=== PATIENT | female | born 1935 | race Caucasian/White ===

== ENCOUNTER 2023-02-03 20:04 | Observation (INO) | payer OTHER ==
--- OUTSIDE RECORDS SUMMARY | 2023-02-03 20:11 | XMS REPORT | Continuity of Care Document ---
:1935 Author Organization [facility] t Address [address] [facility] [place] [address] Care Team Providers Name Role Phone Rey Arango MD Primary Care Physician AURA MARK Attending Clinician Unavailable Doctor Unassigned, Home Attending Clinician Unavailable Rey Arango MD Attending Clinician REY ARANGO Attending Clinician Unavailable LEEROY ALBARRAN Attending Clinician Unavailable JEANETTE CHOW Attending Clinician Unavailable Lab, Ang - Db Attending Clinician Unavailable Jamie Roger MD Attending Clinician JAMIE ROGER Attending Clinician Unavailable Jeanette Londono Attending Clinician oDra Amor Attending Clinician PERLA VILLARREAL Attending Clinician Unavailable PERLA VILLARREAL Attending Clinician Unavailable Aura Mark MD Attending Clinician Only, Adc Test Attending Clinician Unavailable Damien Quintanilla DO Attending Clinician Meseret Oden RN Attending Clinician Unavailable Aidee Nunez Attending Clinician Jose Everett MD Attending Clinician Heaven Corcoran RN Attending Clinician Unavailable Lab, Adc Fam Pob I Attending Clinician Unavailable Evelyn Mckeon Attending Clinician EVELYN GILLESPIE Attending Clinician Unavailable Pob, Adc Lab Main Attending Clinician Unavailable ROSIO WILLIAMSON Attending Clinician Unavailable Rosio Williamson MD Attending Clinician AURA MARK Admitting Clinician Unavailable Aura Mark MD Admitting Clinician Jose Everett MD Admitting Clinician Payers Payer Name Policy Type Policy Number Effective Date Expiration Date [employer] CHOICE [id number] 2014 00:00:00 Problems Condition Condition Condition Status Onset Resolution Last Treating Co mments Source Name Details Category Date Date Treatment Clinician Date Colitis, Colitis, Disease Active Unive rs acute acute - ity of 00:00: [place] [address] [place] [address] Branch Essential Essential Disease Active Uni vers hypertensi hypertensi 5-16 it y of on on 00:00: [address] Type 2 Type 2 Disease Active Univers diabetes diabetes 5-16 ity of mellitus mellitus 00:00: [place] without without 00 Medical complicati complicati Br anch on, with on, with long-term long-term current current use of use of insulin insulin UTI UTI Disease Active Univers (urinary (urinary 6-18 ity of tract tract 00:00: [place] infection) infection) 00 Me dical Branch Acute Acute Disease Active Univers bilateral bilateral 6-18 ity of low back low back 00:00: [place] pain with pain with 00 [facility] sciatica sciatica Branch Allergies, Adverse Reactions, Alerts Allergy Allergy Status Severity Reaction(s) Onset Inactive Treating Comm ents Source Name Type Date Date Clinician NO KNOWN Drug Active Univers ALLERGIE Class ity of S [facility] Social History Social Habit Start Date Stop Date Quantity Comments Source Exposure to 2022-12-26 2023-01-05 Not sure University SARS-CoV-2 00:00:00 08:54:00 [facility] (event) Branch Alcohol intake 2023-01-05 2023-01-05 Current University of 00:00:00 00:00:00 non-drinker of [facility] alcohol (finding) [place] Tobacco use and 2022-09-22 2022-09-22 Smokeless tobacco Un iversity of exposure 00:00:00 00:00:00 non-user [facility] Sex Ass[birth year] At [birth year] Universit y of 00:00:00 00:00:00 [facility] Smoking Status Start Date Stop Date Source Never smoked tobacco [facility] Medications Ordered Filled Start Stop Current Ordering Indication Dosage Frequency Signature Comments Components Source Medication Medication Date Date Medication? Clinician (SIG) Name Name ondansetron 3-0 Yes [id number] 4mg Take 1 Univers 4 mg tablet 4-05 tablet by ity of 00:00: mouth [place] 00 every 4 Medical (four) Branch hours as needed for Nausea and Vomiting (N/V). ondansetron 3-0 Yes [id number] 4mg Take 1 Univers 4 mg tablet 4-05 tablet by ity of 00:00: mouth [place] 00 every 4 Medical (four) Branch hours as needed for Nausea and Vomiting (N/V). ondansetron 3-0 Yes [id number] 4mg Take 1 Univers 4 mg tablet 4-05 tablet by ity of 00:00: mouth [place] 00 every 4 Medical (four) Branch hours as needed for Nausea and Vomiting (N/V). ondansetron 3-0 Yes [id number] 4mg Take 1 Univers 4 mg tablet 4-05 tablet by ity of 00:00: mouth [place] 00 every 4 Medical (four) Branch hours as needed for Nausea and Vomiting (N/V). HYDROcodone 3-0 Yes 2745 TAKE 1 Univ ers -ibuprofen 3-17 TABLET BY ity of 7.5-200 mg 00:00: MOUTH [place] per tablet 00 EVERY SIX Medi varsha HOURS Branch NEEDED FOR PAIN Indication s: chronic pain HYDROcodone 3-0 Yes 2745 TAKE 1 Univ ers -ibuprofen 3-17 TABLET BY ity of 7.5-200 mg 00:00: MOUTH [place] per tablet 00 EVERY SIX Medi varsha HOURS Branch NEEDED FOR PAIN Indication s: chronic pain HYDROcodone 2023-0 Yes 2745 TAKE 1 Univ ers -ibuprofen 3-17 TABLET BY ity of 7.5-200 mg 00:00: MOUTH [place] per tablet 00 EVERY SIX Medi varsha HOURS Branch NEEDED FOR PAIN Indication s: chronic pain HYDROcodone 2023-0 Yes 2745 TAKE 1 Univ ers -ibuprofen 3-17 TABLET BY ity of 7.5-200 mg 00:00: MOUTH [place] per tablet 00 EVERY SIX Medi varsha HOURS Branch NEEDED FOR PAIN Indication s: chronic pain HYDROcodone 2022-0 Yes 2745 TAKE 1 Univ ers -ibuprofen 3-17 TABLET BY ity of 7.5-200 mg 00:00: MOUTH [place] per tablet 00 EVERY SIX Medi varsha HOURS Branch NEEDED FOR PAIN Indication s: chronic pain HYDROcodone 2022-0 Yes 2745 TAKE 1 Univ ers -ibuprofen 3-17 TABLET BY ity of 7.5-200 mg 00:00: MOUTH [place] per tablet 00 EVERY SIX Medi varsha HOURS Branch NEEDED FOR PAIN Indication s: chronic pain HYDROcodone 2022-0 Yes 2745 TAKE 1 Univ ers -ibuprofen 3-17 TABLET BY ity of 7.5-200 mg 00:00: MOUTH [place] per tablet 00 EVERY SIX Medi varsha HOURS Branch NEEDED FOR PAIN Indication s: chronic pain HYDROcodone 2022-0 Yes 2745 TAKE 1 Univ ers -ibuprofen 3-17 TABLET BY ity of 7.5-200 mg 00:00: MOUTH [place] per tablet 00 EVERY SIX Medi varsha HOURS Branch NEEDED FOR PAIN Indication s: chronic pain HYDROcodone 2022-0 Yes 2745 TAKE 1 Univ ers -ibuprofen 3-17 TABLET BY ity of 7.5-200 mg 00:00: MOUTH [place] per tablet 00 EVERY SIX Medi varsha HOURS Branch NEEDED FOR PAIN Indication s: chronic pain HYDROcodone 2022-0 Yes 2745 TAKE 1 Univ ers -ibuprofen 3-17 TABLET BY ity of 7.5-200 mg 00:00: MOUTH [place] per tablet 00 EVERY SIX Medi varsha HOURS Branch NEEDED FOR PAIN Indication s: chronic pain diclofenac 2022-0 Yes [id number] 50mg Take 1 Univers 50 mg EC 3-16 [id number] tablet by ity o f tablet 00:00: mouth in [place] 00 the Medical morning Branch and 1 tablet in the evening. Take with meals. ALPRAZolam 2022-0 Yes [id number] TAKE 1/2 Univers 0.25 mg 3-16 TABLET BY ity of tablet 00:00: MOUTH [place] 00 THREE Medical TIMES Branch DAILY NEEDED FOR ANXIETY HYDROcodone 2022-0 Yes 2745 TAKE 1 Univ ers -acetaminop 3-16 TABLET BY ity of hen 5-325 00:00: MOUTH [place] mg tablet 00 EVERY FOUR Medi varsha HOURS Branch NEEDED FOR PAIN Indication s: chronic pain diclofenac 2023-0 Yes [id number] 50mg Take 1 Univers 50 mg EC 3-16 [id number] tablet by ity o f tablet 00:00: mouth in [place] the Medical morning Branch and 1 tablet in the evening. Take with meals. ALPRAZolam 3-0 Yes [id number] TAKE 1/2 Univers 0.25 mg 3-16 TABLET BY ity of tablet 00:00: MOUTH [address] Medical TIMES [place] DAILY NEEDED FOR ANXIETY HYDROcodone 3-0 Yes 2745 TAKE 1 Univ ers -acetaminop 3-16 TABLET BY ity of hen 5-325 00:00: MOUTH [place] mg tablet 00 EVERY FOUR Medi varsha HOURS Branch NEEDED FOR PAIN Indication s: chronic pain diclofenac 3-0 Yes [id number] 50mg Take 1 Univers 50 mg EC 3-16 [id number] tablet by ity o f tablet 00:00: mouth in [place] [address] the Medical morning Branch and 1 tablet in the evening. Take with meals. ALPRAZolam 3-0 Yes [id number] TAKE 1/2 Univers 0.25 mg 3-16 TABLET BY ity of tablet 00:00: MOUTH [address] TIMES [place] DAILY NEEDED FOR ANXIETY HYDROcodone 3-0 Yes 2745 TAKE 1 Univ ers -acetaminop 3-16 TABLET BY ity of hen 5-325 00:00: MOUTH [place] mg tablet 00 EVERY FOUR Medi varsha HOURS Branch NEEDED FOR PAIN Indication s: chronic pain diclofenac 3-0 Yes [id number] 50mg Take 1 Univers 50 mg EC 3-16 [id number] tablet by ity o f tablet 00:00: mouth in [place] [address] the [facility] morning Branch and 1 tablet in the evening. Take with meals. ALPRAZolam 3-0 Yes [id number] TAKE 1/2 Univers 0.25 mg 3-16 TABLET BY ity of tablet 00:00: MOUTH [address] TIMES [place] DAILY NEEDED FOR ANXIETY HYDROcodone 3-0 Yes 2745 TAKE 1 Univ ers -acetaminop 3-16 TABLET BY ity of hen 5-325 00:00: MOUTH [place] mg tablet 00 EVERY FOUR Medi varsha HOURS Branch NEEDED FOR PAIN Indication s: chronic pain diclofenac 2023-0 Yes [id number] 50mg Take 1 Univers 50 mg EC 3-16 [id number] tablet by ity o f tablet 00:00: mouth in [place] [address] the Medical morning Branch and 1 tablet in the evening. Take with meals. ALPRAZolam 3-0 Yes [id number] TAKE 1/2 Univers 0.25 mg 3-16 TABLET BY ity of tablet 00:00: MOUTH [place] 00 THREE Medical TIMES Branch DAILY NEEDED FOR ANXIETY HYDROcodone 2022-0 Yes 2745 TAKE 1 Univ ers -acetaminop 3-16 TABLET BY ity of hen 5-325 00:00: MOUTH [place] mg tablet 00 EVERY FOUR Medi varsha HOURS Branch NEEDED FOR PAIN Indication s: chronic pain diclofenac 2022-0 Yes [id number] 50mg Take 1 Univers 50 mg EC 3-16 [id number] tablet by ity o f tablet 00:00: mouth in [place] 00 the Medical morning Branch and 1 tablet in the evening. Take with meals. ALPRAZolam 2022-0 Yes [id number] TAKE 1/2 Univers 0.25 mg 3-16 TABLET BY ity of tablet 00:00: MOUTH [place] [facility] Medical TIMES [place] DAILY NEEDED FOR ANXIETY HYDROcodone 2022-0 Yes 2745 TAKE 1 Univ ers -acetaminop 3-16 TABLET BY ity of hen 5-325 00:00: MOUTH [place] mg tablet 00 EVERY FOUR Medi varsha HOURS Branch NEEDED FOR PAIN Indication s: chronic pain diclofenac 2022-0 Yes [id number] 50mg Take 1 Univers 50 mg EC 3-16 [id number] tablet by ity o f tablet 00:00: mouth in [place] 00 the Medical morning Branch and 1 tablet in the evening. Take with meals. ALPRAZolam 3-0 Yes [id number] TAKE 1/2 Univers 0.25 mg 3-16 TABLET BY ity of tablet 00:00: MOUTH [place] 00 [facility] Medical TIMES [place] DAILY NEEDED FOR ANXIETY HYDROcodone 3-0 Yes 2745 TAKE 1 Univ ers -acetaminop 3-16 TABLET BY ity of hen 5-325 00:00: MOUTH [place] mg tablet 00 EVERY FOUR Medi varsha HOURS Branch NEEDED FOR PAIN Indication s: chronic pain diclofenac 3-0 Yes [id number] 50mg Take 1 Univers 50 mg EC 3-16 [id number] tablet by ity o f tablet 00:00: mouth in [place] 00 the Medical morning Branch and 1 tablet in the evening. Take with meals. ALPRAZolam 3-0 Yes [id number] TAKE 1/2 Univers 0.25 mg 3-16 TABLET BY ity of tablet 00:00: MOUTH [place] THREE Medical TIMES Branch DAILY NEEDED FOR ANXIETY HYDROcodone 2023-0 Yes 2745 TAKE 1 Univ ers -acetaminop 3-16 TABLET BY ity of hen 5-325 00:00: MOUTH [place] mg tablet 00 EVERY FOUR Medi varsha HOURS Branch NEEDED FOR PAIN Indication s: chronic pain diclofenac 2023-0 Yes [id number] 50mg Take 1 Univers 50 mg EC 3-16 [id number] tablet by ity o f tablet 00:00: mouth in [place] 00 the Medical morning Branch and 1 tablet in the evening. Take with meals. ALPRAZolam 2023-0 Yes [id number] TAKE 1/2 Univers 0.25 mg 3-16 TABLET BY ity of tablet 00:00: MOUTH [place] THREE Medical TIMES Branch DAILY NEEDED FOR ANXIETY HYDROcodone 2023-0 Yes 2745 TAKE 1 Univ ers -acetaminop 3-16 TABLET BY ity of hen 5-325 00:00: MOUTH [place] mg tablet 00 EVERY FOUR Medi varsha HOURS Branch NEEDED FOR PAIN Indication s: chronic pain diclofenac 3-0 Yes [id number] 50mg Take 1 Univers 50 mg EC 3-16 [id number] tablet by ity o f tablet 00:00: mouth in [place] the Medical morning Branch and 1 tablet in the evening. Take with meals. ALPRAZolam 2023-0 Yes [id number] TAKE 1/2 Univers 0.25 mg 3-16 TABLET BY ity of tablet 00:00: MOUTH [place] [facility] Medical TIMES [place] DAILY NEEDED FOR ANXIETY HYDROcodone 2023-0 Yes 2745 TAKE 1 Univ ers -acetaminop 3-16 TABLET BY ity of hen 5-325 00:00: MOUTH [place] mg tablet 00 EVERY FOUR Medi varsha HOURS Branch NEEDED FOR PAIN Indication s: chronic pain diclofenac 2023-0 Yes [id number] 50mg Take 1 Univers 50 mg EC 3-16 [id number] tablet by ity o f tablet 00:00: mouth in [place] 00 the Medical morning Branch and 1 tablet in the evening. Take with meals. ALPRAZolam 2023-0 Yes [id number] TAKE 1/2 Univers 0.25 mg 3-16 TABLET BY ity of tablet 00:00: MOUTH [place] 00 THREE Medical TIMES Branch DAILY NEEDED FOR ANXIETY HYDROcodone 2023-0 Yes 2745 TAKE 1 Univ ers -acetaminop 3-16 TABLET BY ity of hen 5-325 00:00: MOUTH [place] mg tablet 00 EVERY FOUR Medi varsha HOURS Branch NEEDED FOR PAIN Indication s: chronic pain diclofenac 2022-0 Yes [id number] 50mg Take 1 Univers 50 mg EC 3-16 [id number] tablet by ity o f tablet 00:00: mouth in [place] 00 the Medical morning Branch and 1 tablet in the evening. Take with meals. ALPRAZolam 2022-0 Yes [id number] TAKE 1/2 Univers 0.25 mg 3-16 TABLET BY ity of tablet 00:00: MOUTH [place] 00 THREE Medical TIMES Branch DAILY NEEDED FOR ANXIETY HYDROcodone 2022-0 Yes 2745 TAKE 1 Univ ers -acetaminop 3-16 TABLET BY ity of hen 5-325 00:00: MOUTH [place] mg tablet 00 EVERY FOUR Medi varsha HOURS Branch NEEDED FOR PAIN Indication s: chronic pain diclofenac 2022-0 Yes [id number] 50mg Take 1 Univers 50 mg EC 3-16 [id number] tablet by ity o f tablet 00:00: mouth in [place] 00 the Medical morning Branch and 1 tablet in the evening. Take with meals. ALPRAZolam 2022-0 Yes [id number] TAKE 1/2 Univers 0.25 mg 3-16 TABLET BY ity of tablet 00:00: MOUTH [place] 00 THREE Medical TIMES Branch DAILY NEEDED FOR ANXIETY HYDROcodone 2022-0 Yes 2745 TAKE 1 Univ ers -acetaminop 3-16 TABLET BY ity of hen 5-325 00:00: MOUTH [place] mg tablet 00 EVERY FOUR Medi varsha HOURS Branch NEEDED FOR PAIN Indication s: chronic pain methocarbam 2022-0 Yes [id number] 500mg Take 1 Univers oL 500 mg 2-23 109 tablet by ity o f tablet 00:00: mouth 3 [place] 00 (three) Medical times Branch daily as needed for Pain (scale 4-6). HYDROcodone 2022-0 Yes 2745 TAKE 1 Univ ers -ibuprofen 2-23 TABLET BY ity of 7.5-200 mg 00:00: MOUTH [place] per tablet 00 EVERY SIX Medi varsha HOURS Branch NEEDED FOR PAIN Indication s: chronic pain insulin 2022-0 Yes [id number] 28U inject 28 Univers detemir 2-23 Units ity of U-100 00:00: under the [place] ([place] 00 skin at Medical U-100 bedtime. Branch INSULIN) 100 unit/mL injection hydroCHLORO 2023-0 Yes [id number] 12.5mg Take 1 Univers thiazide 2-23 capsule by ity o f 12.5 mg 00:00: mouth in [place] capsule 00 the Medical morning. Branch methocarbam 2022-0 Yes [id number] 500mg Take 1 Univers oL 500 mg 2-23 109 tablet by ity o f tablet 00:00: mouth 3 [place] 00 (three) Medical times Branch daily as needed for Pain (scale 4-6). HYDROcodone 2022-0 Yes 2745 TAKE 1 Univ ers -ibuprofen 2-23 TABLET BY ity of 7.5-200 mg 00:00: MOUTH [place] per tablet 00 EVERY SIX Medi varsha HOURS Branch NEEDED FOR PAIN Indication s: chronic pain insulin 2022-0 Yes [id number] 28U inject 28 Univers detemir 2-23 Units ity of U-100 00:00: under the [place] ([place] 00 skin at Medical U-100 bedtime. Branch INSULIN) 100 unit/mL injection hydroCHLORO 2022-0 Yes [id number] 12.5mg Take 1 Univers thiazide 2-23 capsule by ity o f 12.5 mg 00:00: mouth in [place] capsule 00 the Medical morning. Branch methocarbam 2022-0 Yes [id number] 500mg Take 1 Univers oL 500 mg 2-23 109 tablet by ity o f tablet 00:00: mouth 3 [place] 00 (three) Medical times Branch daily as needed for Pain (scale 4-6). HYDROcodone 2022-0 Yes 2745 TAKE 1 Univ ers -ibuprofen 2-23 TABLET BY ity of 7.5-200 mg 00:00: MOUTH [place] per tablet 00 EVERY SIX Medi varsha HOURS Branch NEEDED FOR PAIN Indication s: chronic pain insulin 2022-0 Yes [id number] 28U inject 28 Univers detemir 2-23 Units ity of U-100 00:00: under the [place] ([place] 00 skin at Medical U-100 bedtime. Branch INSULIN) 100 unit/mL injection hydroCHLORO 2023-0 Yes [id number] 12.5mg Take 1 Univers thiazide 2-23 capsule by ity o f 12.5 mg 00:00: mouth in [place] capsule 00 the Medical morning. Branch methocarbam 2023-0 Yes [id number] 500mg Take 1 Univers oL 500 mg 2-23 109 tablet by ity o f tablet 00:00: mouth 3 [place] 00 (three) Medical times Branch daily as needed for Pain (scale 4-6). HYDROcodone 2022-0 Yes 2745 TAKE 1 Univ ers -ibuprofen 2-23 TABLET BY ity of 7.5-200 mg 00:00: MOUTH [place] per tablet 00 EVERY SIX Medi varsha HOURS Branch NEEDED FOR PAIN Indication s: chronic pain insulin 2022-0 Yes [id number] 28U inject 28 Univers [place]emir 2-23 Units ity of U-100 00:00: under the [place] ([place] 00 skin at Medical U-100 bedtime. Branch INSULIN) 100 unit/mL injection hydroCHLORO 2022-0 Yes [id number] 12.5mg Take 1 Univers thiazide 2-23 capsule by ity o f 12.5 mg 00:00: mouth in [place] capsule 00 the Medical morning. Branch methocarbam 2022-0 Yes [id number] 500mg Take 1 Univers oL 500 mg 2-23 109 tablet by ity o f tablet 00:00: mouth 3 (three) Medical times Branch daily as needed for Pain (scale 4-6). HYDROcodone 2022-0 Yes 2745 TAKE 1 Univ ers -ibuprofen 2-23 TABLET BY ity of 7.5-200 mg 00:00: MOUTH [place] per tablet 00 EVERY SIX Medi varsha HOURS Branch NEEDED FOR PAIN Indication s: chronic pain insulin 2022-0 Yes [id number] 28U inject 28 Univers detemir 2-23 Units ity of U-100 00:00: under the [place] ([place] 00 skin at Medical U-100 bedtime. Branch INSULIN) 100 unit/mL injection hydroCHLORO 3-0 Yes [id number] 12.5mg Take 1 Univers thiazide 2-23 capsule by ity o f 12.5 mg 00:00: mouth in [place] capsule 00 the Medical morning. Branch methocarbam 2022-0 Yes [id number] 500mg Take 1 Univers oL 500 mg 2-23 109 tablet by ity o f tablet 00:00: mouth 3 [place] 00 (three) Medical times Branch daily as needed for Pain (scale 4-6). insulin 2022-0 Yes [id number] 28U inject 28 Univers detemir 2-23 Units ity of U-100 00:00: under the [place] ([place] 00 skin at Medical U-100 bedtime. Branch INSULIN) 100 unit/mL injection hydroCHLORO 2022-0 Yes [id number] 12.5mg Take 1 Univers thiazide 2-23 capsule by ity o f 12.5 mg 00:00: mouth in [place] capsule 00 the Medical morning. Branch methocarbam 2022-0 Yes [id number] 500mg Take 1 Univers oL 500 mg 2-23 109 tablet by ity o f tablet 00:00: mouth 3 [place] 00 (three) Medical times Branch daily as needed for Pain (scale 4-6). insulin 2022-0 Yes [id number] 28U inject 28 Univers detemir 2-23 Units ity of U-100 00:00: under the [place] ([place] 00 skin at Medical U-100 bedtime. Branch INSULIN) 100 unit/mL injection hydroCHLORO 2022-0 Yes [id number] 12.5mg Take 1 Univers thiazide 2-23 capsule by ity o f 12.5 mg 00:00: mouth in [place] capsule 00 the Medical morning. Branch methocarbam 2022-0 Yes [id number] 500mg Take 1 Univers oL 500 mg 2-23 109 tablet by ity o f tablet 00:00: mouth 3 [place] 00 (three) Medical times Branch daily as needed for Pain (scale 4-6). insulin 2022-0 Yes [id number] 28U inject 28 Univers detemir 2-23 Units ity of U-100 00:00: under the [place] ([place] 00 skin at Medical U-100 bedtime. Branch INSULIN) 100 unit/mL injection hydroCHLORO 2022-0 Yes [id number] 12.5mg Take 1 Univers thiazide 2-23 capsule by ity o f 12.5 mg 00:00: mouth in [place] capsule 00 the Medical morning. Branch methocarbam 2022-0 Yes [id number] 500mg Take 1 Univers oL 500 mg 2-23 109 tablet by ity o f tablet 00:00: mouth 3 [place] 00 (three) Medical times Branch daily as needed for Pain (scale 4-6). insulin 2022-0 Yes [id number] 28U inject 28 Univers detemir 2-23 Units ity of U-100 00:00: under the [place] ([place] 00 skin at Medical U-100 bedtime. Branch INSULIN) 100 unit/mL injection hydroCHLORO 2022-0 Yes [id number] 12.5mg Take 1 Univers thiazide 2-23 capsule by ity o f 12.5 mg 00:00: mouth in [place] capsule 00 the Medical morning. Branch methocarbam 2022-0 Yes [id number] 500mg Take 1 Univers oL 500 mg 2-23 109 tablet by ity o f tablet 00:00: mouth 3 [place] 00 (three) Medical times Branch daily as needed for Pain (scale 4-6). insulin 2022-0 Yes [id number] 28U inject 28 Univers [place]emir 2-23 Units ity of U-100 00:00: under the [place] ([place] 00 skin at Medical U-100 bedtime. Branch INSULIN) 100 unit/mL injection hydroCHLORO 2022-0 Yes [id number] 12.5mg Take 1 Univers thiazide 2-23 capsule by ity o f 12.5 mg 00:00: mouth in [place] capsule 00 the Medical morning. Branch methocarbam 2022-0 Yes [id number] 500mg Take 1 Univers oL 500 mg 2-23 109 tablet by ity o f tablet 00:00: mouth 3 [place] 00 (three) Medical times Branch daily as needed for Pain (scale 4-6). insulin 2022-0 Yes [id number] 28U inject 28 Univers detemir 2-23 Units ity of U-100 00:00: under the [place] ([place] 00 skin at Medical U-100 bedtime. Branch INSULIN) 100 unit/mL injection hydroCHLORO 2022-0 Yes [id number] 12.5mg Take 1 Univers thiazide 2-23 capsule by ity o f 12.5 mg 00:00: mouth in [place] capsule 00 the Medical morning. Branch methocarbam 2022-0 Yes [id number] 500mg Take 1 Univers oL 500 mg 2-23 109 tablet by ity o f tablet 00:00: mouth 3 [place] 00 (three) Medical times Branch daily as needed for Pain (scale 4-6). insulin 2022-0 Yes [id number] 28U inject 28 Univers [place]emir 2-23 Units ity of U-100 00:00: under the [place] ([place] 00 skin at Medical U-100 bedtime. Branch INSULIN) 100 unit/mL injection hydroCHLORO 2022-0 Yes [id number] 12.5mg Take 1 Univers thiazide 2-23 capsule by ity o f 12.5 mg 00:00: mouth in [place] capsule 00 the Medical morning. Branch methocarbam 3-0 Yes [id number] 500mg Take 1 Univers oL 500 mg 2-23 109 tablet by ity o f tablet 00:00: mouth 3 [place] 00 (three) Medical times Branch daily as needed for Pain (scale 4-6). insulin 2022-0 Yes [id number] 28U inject 28 Univers [place]ir 2-23 Units ity of U-100 00:00: under the [place] ([place] 00 skin at Medical U-100 bedtime. Branch INSULIN) 100 unit/mL injection hydroCHLORO 2023-0 Yes [id number] 12.5mg Take 1 Univers thiazide 2-23 capsule by ity o f 12.5 mg 00:00: mouth in [place] capsule 00 the Medical morning. Branch methocarbam 2022-0 Yes [id number] 500mg Take 1 Univers oL 500 mg 2-23 109 tablet by ity o f tablet 00:00: mouth 3 [place] 00 (three) Medical times Branch daily as needed for Pain (scale 4-6). insulin 2022-0 Yes [id number] 28U inject 28 Univers detemir 2-23 Units ity of U-100 00:00: under the [place] ([place] 00 skin at Medical U-100 bedtime. Branch INSULIN) 100 unit/mL injection hydroCHLORO 3-0 Yes [id number] 12.5mg Take 1 Univers thiazide 2-23 capsule by ity o f 12.5 mg 00:00: mouth in [place] capsule 00 the Medical morning. Branch methocarbam 2022-0 Yes [id number] 500mg Take 1 Univers oL 500 mg 2-23 109 tablet by ity o f tablet 00:00: mouth 3 [place] 00 (three) Medical times Branch daily as needed for Pain (scale 4-6). insulin 2022-0 Yes [id number] 28U inject 28 Univers detemir 2-23 Units ity of U-100 00:00: under the [place] ([place] 00 skin at Medical U-100 bedtime. Branch INSULIN) 100 unit/mL injection hydroCHLORO 2023-0 Yes [id number] 12.5mg Take 1 Univers thiazide 2-23 capsule by ity o f 12.5 mg 00:00: mouth in [place] capsule 00 the Medical morning. Branch HYDROcodone 2022-0 3- No 2745 TAKE 1 Uni vers -ibuprofen 2-23 03-17 TABLET BY ity of 7.5-200 mg 00:00: 00:00 MOUTH [place] per tablet 00 :00 EVERY SIX Medi varsha HOURS Branch NEEDED FOR PAIN Indication s: chronic pain insulin 2022-0 Yes [id number] 28U inject 28 Univers detemir 1-23 Units ity of U-100 00:00: under the [place] ([place] 00 skin at Medical U-100 bedtime. Branch INSULIN) 100 unit/mL injection HYDROcodone 2022-0 Yes 2745 TAKE 1 Univ ers -ibuprofen 1-23 TABLET BY ity of 7.5-200 mg 00:00: MOUTH [place] per tablet 00 EVERY SIX Medi varsha HOURS Branch NEEDED FOR PAIN Indication s: chronic pain insulin 2022-0 Yes [id number] 28U inject 28 Univers detemir 1-23 Units ity of U-100 00:00: under the [place] ([place] 00 skin at Medical U-100 bedtime. Branch INSULIN) 100 unit/mL injection HYDROcodone 2022-0 Yes 2745 TAKE 1 Univ ers -ibuprofen 1-23 TABLET BY ity of 7.5-200 mg 00:00: MOUTH [place] per tablet 00 EVERY SIX Medi varsha HOURS Branch NEEDED FOR PAIN Indication s: chronic pain insulin 2022-0 Yes [id number] 28U inject 28 Univers detemir 1-23 Units ity of U-100 00:00: under the [place] ([place] 00 skin at Medical U-100 bedtime. Branch INSULIN) 100 unit/mL injection HYDROcodone 2022-0 Yes 2745 TAKE 1 Univ ers -ibuprofen 1-23 TABLET BY ity of 7.5-200 mg 00:00: MOUTH [place] per tablet 00 EVERY SIX Medi varsha HOURS Branch NEEDED FOR PAIN Indication s: chronic pain insulin 2022-0 Yes [id number] 28U inject 28 [facility] detemir 1-23 Units it[facility] of U-100 00:00: under the [place] (LEVEMIR 00 skin at Medical U-100 bedtime. Branch INSULIN) 100 unit/mL injection HYDROcodone 2022-0 Yes 2745 TAKE 1 [facility] ers -ibuprofen 1-23 TABLET BY ity of 7.5-200 mg 00:00: MOUTH [place] per tablet 00 EVERY SIX Medi varsha HOURS Branch NEEDED FOR PAIN Indication s: chronic pain insulin 2022- No [id number] 28U inject 28 [facility] detemir 10-25-23 Units ity of U-100 00:00: 00:00 under the [place] (LEVEMIR 00 :00 skin at Medical U-100 bedtime. Branch INSULIN) 100 unit/mL injection HYDROcodone 2022- No 2745 TAKE 1 [facility] vers -ibuprofen -25 11- TABLET BY ity of 7.5-200 mg 00:00: 00:00 MOUTH [place] per tablet 00 :00 EVERY SIX Medi varsha HOURS Branch NEEDED FOR PAIN Indication s: chronic pain insulin 2022- No [id number] 28U inject 28 [facility] detemir 10-25-23 Units ity of U-100 00:00: 00:00 under the [place] (LEVEMIR 00 :00 skin at Medical U-100 bedtime. Branch INSULIN) 100 unit/mL injection HYDROcodone 2022- No 2745 TAKE 1 [facility] vers -ibuprofen 10-25 TABLET BY ity of 7.5-200 mg 00:00: 00:00 MOUTH [place] per tablet 00 :00 EVERY SIX Medi varsha HOURS Branch NEEDED FOR PAIN Indication s: chronic pain HYDROcodone 2021-10 Yes 2745 TAKE 1 [facility] ers -ibuprofen 2-28 TABLET BY ity of 7.5-200 mg 00:00: MOUTH [place] per tablet 00 EVERY SIX Medi varsha HOURS Branch NEEDED FOR PAIN Indication s: chronic pain HYDROcodone 2021-10- No 2745 TAKE 1 [facility] vers -ibuprofen 2-30 10- TABLET BY ity of 7.5-200 mg 00:00: 00:00 MOUTH [place] per tablet 00 :00 EVERY SIX Medi varsha HOURS Branch NEEDED FOR PAIN Indication s: chronic pain HYDROcodone 2021-10- No 2745 TAKE 1 [facility] vers -ibuprofen 2-28 - TABLET BY ity of 7.5-200 mg 00:00: 00:00 MOUTH [place] per tablet 00 :00 EVERY SIX Medi varsha HOURS Branch NEEDED FOR PAIN Indication s: chronic pain ALPRAZolam 2021-10 Yes [id number] TAKE 1/2 [facility] 0.25 mg 2-21 TABLET BY ity of tablet 00:00: MOUTH [place] 00 THREE Medical TIMES Branch DAILY NEEDED FOR ANXIETY escitalopra 2021-10 Yes [id number] 5mg Take 1 [facility] m oxalate 2-21 tablet by ity o f (LEXAPRO) 5 00:00: mouth in [place] mg tablet 00 the Medical morning. Branch methocarbam 2021-10 Yes [id number] 500mg Take 1 [facility] oL 500 mg 2-21 109 tablet by ity o f tablet 00:00: mouth 3 [place] 00 (three) Medical times Branch daily as needed for Pain (scale 4-6). ALPRAZolam 2021-10 Yes [id number] TAKE 1/2 [facility] 0.25 mg 2-21 TABLET BY ity of tablet 00:00: MOUTH [place] 00 THREE Medical TIMES Branch DAILY NEEDED FOR ANXIETY escitalopra 2021-10 Yes [id number] 5mg Take 1 [facility] m oxalate 2-21 tablet by ity o f (LEXAPRO) 5 00:00: mouth in [place] mg tablet 00 the Medical morning. Branch methocarbam 2021-10 Yes [id number] 500mg Take 1 [facility] oL 500 mg 2-21 109 tablet by ity o f tablet 00:00: mouth 3 [place] 00 (three) Medical times Branch daily as needed for Pain (scale 4-6). ALPRAZolam 2021-10 Yes [id number] TAKE 1/2 [facility] 0.25 mg 2-21 TABLET BY ity of tablet 00:00: MOUTH [place] 00 THREE Medical TIMES Branch DAILY NEEDED FOR ANXIETY escitalopra 2021-10 Yes [id number] 5mg Take 1 [facility] m oxalate 2-21 tablet by ity o f (LEXAPRO) 5 00:00: mouth in [place] mg tablet 00 the Medical morning. Branch methocarbam 2021-10 Yes [id number] 500mg Take 1 [facility] oL 500 mg 2-21 109 tablet by ity o f tablet 00:00: mouth 3 [place] 00 (three) Medical times Branch daily as needed for Pain (scale 4-6). ALPRAZolam 2021-10 Yes [id number] TAKE 1/2 [facility] 0.25 mg 2-21 TABLET BY ity of tablet 00:00: MOUTH [place] 00 THREE Medical TIMES Branch DAILY NEEDED FOR ANXIETY escitalopra 2021-10 Yes [id number] 5mg Take 1 [facility] m oxalate 2-21 tablet by ity o f (LEXAPRO) 5 00:00: mouth in [place] mg tablet 00 the Medical morning. Branch methocarbam 2021-10 Yes [id number] 500mg Take 1 [facility] oL 500 mg 2-21 109 tablet by ity o f tablet 00:00: mouth 3 [place] 00 (three) Medical times Branch daily as needed for Pain (scale 4-6). ALPRAZolam 2021-10 Yes [id number] TAKE 1/2 [facility] 0.25 mg 2-21 TABLET BY ity of tablet 00:00: MOUTH [place] 00 THREE Medical TIMES Branch DAILY NEEDED FOR ANXIETY escitalopra 2021-10 Yes [id number] 5mg Take 1 [facility] m oxalate 2-21 tablet by ity o f (LEXAPRO) 5 00:00: mouth in [place] mg tablet 00 the Medical morning. Branch methocarbam 2021-10 Yes [id number] 500mg Take 1 [facility] oL 500 mg 2-21 109 tablet by ity o f tablet 00:00: mouth 3 [place] 00 (three) Medical times Branch daily as needed for Pain (scale 4-6). ALPRAZolam 2021-10 Yes [id number] TAKE 1/2 [facility] 0.25 mg 2-21 TABLET BY ity of tablet 00:00: MOUTH [place] 00 THREE Medical TIMES Branch DAILY NEEDED FOR ANXIETY escitalopra 2021-10 Yes [id number] 5mg Take 1 [facility] m oxalate 2-21 tablet by ity o f (LEXAPRO) 5 00:00: mouth in [place] mg tablet 00 the Medical morning. Branch methocarbam 2021-10 Yes [id number] 500mg Take 1 [facility] oL 500 mg 2-21 109 tablet by ity o f tablet 00:00: mouth 3 [place] 00 (three) Medical times Branch daily as needed for Pain (scale 4-6). ALPRAZolam 2021-10 Yes [id number] TAKE 1/2 [facility] 0.25 mg 2-21 TABLET BY ity of tablet 00:00: MOUTH [place] 00 THREE Medical TIMES Branch DAILY NEEDED FOR ANXIETY escitalopra 2021-10 Yes [id number] 5mg Take 1 [facility] m oxalate 2-21 tablet by ity o f (LEXAPRO) 5 00:00: mouth in [place] mg tablet 00 the Medical morning. Branch methocarbam 2021-10 Yes [id number] 500mg Take 1 [facility] oL 500 mg 2-21 109 tablet by ity o f tablet 00:00: mouth 3 [place] 00 (three) Medical times Branch daily as needed for Pain (scale 4-6). ALPRAZolam 2021-10 Yes [id number] TAKE 1/2 [facility] 0.25 mg 2-21 TABLET BY ity of tablet 00:00: MOUTH [place] 00 THREE Medical TIMES Branch DAILY NEEDED FOR ANXIETY escitalopra 2021-10 Yes [id number] 5mg Take 1 [facility] m oxalate 2-21 tablet by ity o f (LEXAPRO) 5 00:00: mouth in [place] mg tablet 00 the Medical morning. Branch methocarbam 2021-10 Yes [id number] 500mg Take 1 [facility] oL 500 mg 2-21 109 tablet by ity o f tablet 00:00: mouth 3 [place] 00 (three) Medical times Branch daily as needed for Pain (scale 4-6). ALPRAZolam 2021-10 Yes [id number] TAKE 1/2 [facility] 0.25 mg 2-21 TABLET BY ity of tablet 00:00: MOUTH [place] 00 THREE Medical TIMES Branch DAILY NEEDED FOR ANXIETY escitalopra 2021-10 Yes [id number] 5mg Take 1 [facility] m oxalate 2-21 tablet by ity o f (LEXAPRO) 5 00:00: mouth in [place] mg tablet 00 the Medical morning. Branch methocarbam 2021-10 Yes [id number] 500mg Take 1 [facility] oL 500 mg 2-21 109 tablet by ity o f tablet 00:00: mouth 3 [place] 00 (three) Medical times Branch daily as needed for Pain (scale 4-6). ALPRAZolam 2021-10 Yes [id number] TAKE 1/2 [facility] 0.25 mg 2-21 TABLET BY ity of tablet 00:00: MOUTH [place] 00 THREE Medical TIMES Branch DAILY NEEDED FOR ANXIETY escitalopra 2021-10 Yes [id number] 5mg Take 1 [facility] m oxalate 2-21 tablet by ity o f (LEXAPRO) 5 00:00: mouth in [place] mg tablet 00 the Medical morning. Branch ALPRAZolam 2021-10 Yes [id number] TAKE 1/2 [facility] 0.25 mg 2-21 TABLET BY ity of tablet 00:00: MOUTH [place] 00 THREE Medical TIMES Branch DAILY NEEDED FOR ANXIETY escitalopra 2021-10 Yes [id number] 5mg Take 1 [facility] m oxalate 2-21 tablet by ity o f (LEXAPRO) 5 00:00: mouth in [place] mg tablet 00 the Medical morning. [place] escitalopra 2021-10 Yes [id number] 5mg Take 1 [facility] m oxalate 2-21 tablet by ity o f (LEXAPRO) 5 00:00: mouth in [place] mg tablet 00 the Medical morning. [place] escitalopra 2021-10 Yes [id number] 5mg Take 1 [facility] m oxalate 2-21 tablet by ity o f (LEXAPRO) 5 00:00: mouth in [place] mg tablet 00 the Medical morning. [place] escitalopra 2021-10 Yes [id number] 5mg Take 1 [facility] m oxalate 2-21 tablet by ity o f (LEXAPRO) 5 00:00: mouth in [place] mg tablet 00 the Medical morning. [place] escitalopra 2021-10 Yes [id number] 5mg Take 1 [facility] m oxalate 2-21 tablet by ity o f (LEXAPRO) 5 00:00: mouth in [place] mg tablet 00 the Medical morning. [place] escitalopra 2021-10 Yes [id number] 5mg Take 1 [facility] m oxalate 2-21 tablet by ity o f (LEXAPRO) 5 00:00: mouth in [place] mg tablet 00 the Medical morning. [place] escitalopra 2021-10 Yes [id number] 5mg Take 1 [facility] m oxalate 2-21 tablet by ity o f (LEXAPRO) 5 00:00: mouth in [place] mg tablet 00 the Medical morning. [place] escitalopra 2021-10 Yes [id number] 5mg Take 1 [facility] m oxalate 2-21 tablet by ity o f (LEXAPRO) 5 00:00: mouth in [place] mg tablet 00 the Medical morning. [place] escitalopra 2021-10 Yes [id number] 5mg Take 1 [facility] m oxalate 2-21 tablet by ity o f (LEXAPRO) 5 00:00: mouth in [place] mg tablet 00 the Medical morning. [place] escitalopra 2021-10 Yes [id number] 5mg Take 1 [facility] m oxalate 2-21 tablet by ity o f (LEXAPRO) 5 00:00: mouth in [place] mg tablet 00 the Medical morning. [place] escitalopra 2021-10 Yes [id number] 5mg Take 1 [facility] m oxalate 2-21 tablet by ity o f (LEXAPRO) 5 00:00: mouth in [place] mg tablet 00 the Medical morning. [place] escitalopra 2021-10 Yes [id number] 5mg Take 1 [facility] m oxalate 2-21 tablet by ity o f (LEXAPRO) 5 00:00: mouth in [place] mg tablet 00 the Medical morning. [place] escitalopra 2021-10 Yes [id number] 5mg Take 1 [facility] m oxalate 2-21 tablet by ity o f (LEXAPRO) 5 00:00: mouth in [place] mg tablet 00 the Medical morning. [place] escitalopra 2021-10 Yes [id number] 5mg Take 1 [facility] m oxalate 2-21 tablet by ity o f (LEXAPRO) 5 00:00: mouth in [place] mg tablet 00 the Medical morning. [place] ALPRAZolam 2021-10- No [id number] TAKE 1/2 [facility] 0.25 mg 2-21 -16 TABLET BY ity of tablet 00:00: 00:00 MOUTH [place] 00 :00 THREE Medical TIMES Branch DAILY NEEDED FOR ANXIETY ALPRAZolam 2021-10- No [id number] TAKE 1/2 [facility] 0.25 mg 2-21 -16 TABLET BY ity of tablet 00:00: 00:00 MOUTH [place] 00 :00 THREE Medical TIMES Branch DAILY NEEDED FOR ANXIETY ALPRAZolam 2021-10- No [id number] TAKE 1/2 [facility] 0.25 mg 2-21 -16 TABLET BY ity of tablet 00:00: 00:00 MOUTH [place] 00 :00 THREE Medical TIMES Branch DAILY NEEDED FOR ANXIETY methocarbam 2021-10- No [id number] 500mg Take 1 [facility] oL 500 mg -11-25 109 tablet by ity of tablet 00:00: 00:00 mouth 3 [place] 00 :00 (three) Medical times Branch daily as needed for Pain (scale 4-6). methocarbam 2021-10- No [id number] 500mg Take 1 [facility] oL 500 mg -21 02-23 109 tablet by ity of tablet 00:00: 00:00 mouth 3 [place] 00 :00 (three) Medical times Branch daily as needed for Pain (scale 4-6). HYDROcodone 2021-10 Yes 2745 TAKE 1 [facility] ers -ibuprofen 1-21 TABLET BY ity of 7.5-200 mg 00:00: MOUTH [place] per tablet 00 EVERY SIX Medi varsha HOURS Branch NEEDED FOR PAIN Indication s: chronic pain HYDROcodone 2021-10 Yes 2745 TAKE 1 [facility] ers -ibuprofen 1-21 TABLET BY ity of 7.5-200 mg 00:00: MOUTH [place] per tablet 00 EVERY SIX Medi varsha HOURS Branch NEEDED FOR PAIN Indication s: chronic pain HYDROcodone 2021-10 Yes 2745 TAKE 1 [facility] ers -ibuprofen 1-21 TABLET BY ity of 7.5-200 mg 00:00: MOUTH [place] per tablet 00 EVERY SIX Medi varsha HOURS Branch NEEDED FOR PAIN Indication s: chronic pain HYDROcodone 2021-10 Yes 2745 TAKE 1 [facility] ers -ibuprofen 1-21 TABLET BY ity of 7.5-200 mg 00:00: MOUTH [place] per tablet 00 EVERY SIX Medi varsha HOURS Branch NEEDED FOR PAIN Indication s: chronic pain HYDROcodone 2021-10 Yes 2745 TAKE 1 [facility] ers -ibuprofen 1-21 TABLET BY ity of 7.5-200 mg 00:00: MOUTH [place] per tablet 00 EVERY SIX Medi varsha HOURS Branch NEEDED FOR PAIN Indication s: chronic pain HYDROcodone 2021-10- No 2745 TAKE 1 [facility] vers -ibuprofen 1-21 12-28 TABLET BY ity of 7.5-200 mg 00:00: 00:00 MOUTH [place] per tablet 00 :00 EVERY SIX Medi var[facility] HOURS Branch NEEDED FOR PAIN Indication s: chronic pain HYDROcodone 2021-10 Yes 2745 TAKE 1 [facility] ers -ibuprofen 0-05 TABLET BY ity of 7.5-200 mg 00:00: MOUTH [place] per tablet 00 EVERY SIX Medi var[facility] HOURS Branch NEEDED FOR PAIN Indication s: chronic pain HYDROcodone 2021-10- No 2745 TAKE 1 [facility] vers -ibuprofen 0-05 11-21 TABLET BY ity of 7.5-200 mg 00:00: 00:00 MOUTH [place] per tablet 00 :00 EVERY SIX Medi varsha HOURS Branch NEEDED FOR PAIN Indication s: chronic pain losartan 50 2021-10 Yes Un[facility] s mg tablet 0-04 ity of 00:00: [place] 00 Medical Branch losartan 50 2021- Yes Un[facility] s mg tablet 0-04 ity of 00:00: [place] [facility] losartan 50 2021- Yes Un[facility] s mg tablet 0-04 ity of 00:00: [place] [facility] losartan 50 2021- Yes Un[facility] s mg tablet 0-04 ity of 00:00: [place] [facility] losartan 50 2021- Yes Un[facility] s mg tablet 0-04 ity of 00:00: [place] [facility] losartan 50 2021- Yes Un[facility] s mg tablet 0-04 ity of 00:00: [place] [facility] losartan 50 2021- Yes Un[facility] s mg tablet 0-04 ity of 00:00: [place] [facility] losartan 50 2021- Yes Un[facility] s mg tablet 0-04 ity of 00:00: [place] [facility] losartan 50 2021- Yes Un[facility] s mg tablet 0-04 ity of 00:00: [place] [facility] losartan 50 2021- Yes Un[facility] s mg tablet 0-04 ity of 00:00: [place] [facility] losartan 50 2021- Yes Un[facility] s mg tablet 0-04 ity of 00:00: [place] [facility] losartan 50 2021- Yes Un[facility] s mg tablet 0-04 ity of 00:00: [place] [facility] losartan 50 2021- Yes Un[facility] s mg tablet 0-04 ity of 00:00: [place] [facility] losartan 50 2021-1 Yes Un[facility] s mg tablet 0-04 ity of 00:00: [place] [facility] losartan 50 2021- Yes Un[facility] s mg tablet 0-04 ity of 00:00: [place] [facility] losartan 50 2021- Yes Un[facility] s mg tablet 0-04 ity of 00:00: [place] 00 Medical Branch losartan 50 2021- Yes Un[facility] s mg tablet 0-04 ity of 00:00: [place] 00 Medical Branch losartan 50 2021- Yes Univer s mg tablet 0-04 ity of 00:00: [place] 00 Medical Branch losartan 50 2021- Yes Un[facility] s mg tablet 0-04 ity of 00:00: [place] [facility] losartan 50 2021- Yes Univer s mg tablet 0-04 ity of 00:00: [place] 00 Medical Branch losartan 50 2022-1 Yes Univer s mg tablet 0-04 ity of 00:00: [place] 00 Medical Branch losartan 50 2022-1 Yes Univer s mg tablet 0-04 ity of 00:00: [place] 00 Medical Branch losartan 50 2022-1 Yes Univer s mg tablet 0-04 ity of 00:00: [place] 00 Medical Branch losartan 50 2022-1 Yes Univer s mg tablet 0-04 ity of 00:00: [place] 00 Medical Branch gabapentin 2022-0 Yes 300mg Take 1 [facility] ers 300 mg 9-14 capsule by ity of capsule 00:00: mouth [place] 00 every Medical evening. Branch gabapentin 2022-0 Yes 300mg Take 1 [facility] ers 300 mg 9-14 capsule by ity of capsule 00:00: mouth [place] 00 every Medical evening. Branch gabapentin 2022-0 Yes 300mg Take 1 [facility] ers 300 mg 9-14 capsule by ity of capsule 00:00: mouth [place] 00 every Medical evening. Branch gabapentin 2022-0 Yes 300mg Take 1 [facility] ers 300 mg 9-14 capsule by ity of capsule 00:00: mouth [place] 00 every Medical evening. Branch gabapentin 2022-0 Yes 300mg Take 1 [facility] ers 300 mg 9-14 capsule by ity of capsule 00:00: mouth [place] 00 every Medical evening. Branch gabapentin 2022-0 Yes 300mg Take 1 [facility] ers 300 mg 9-14 capsule by ity of capsule 00:00: mouth [place] 00 every Medical evening. Branch gabapentin 2022-0 Yes 300mg Take 1 [facility] ers 300 mg 9-14 capsule by ity of capsule 00:00: mouth [place] 00 every Medical evening. Branch gabapentin 2022-0 Yes 300mg Take 1 [facility] ers 300 mg 9-14 capsule by ity of capsule 00:00: mouth [place] 00 every Medical evening. Branch gabapentin 2022-0 Yes 300mg Take 1 [facility] ers 300 mg 9-14 capsule by ity of capsule 00:00: mouth [place] 00 every Medical evening. Branch gabapentin 2022-0 Yes 300mg Take 1 [facility] ers 300 mg 9-14 capsule by ity of capsule 00:00: mouth [place] 00 every Medical evening. Branch gabapentin 2022-0 Yes 300mg Take 1 [facility] ers 300 mg 9-14 capsule by ity of capsule 00:00: mouth [place] 00 every Medical evening. Branch gabapentin 2022-0 Yes 300mg Take 1 [facility] ers 300 mg 9-14 capsule by ity of capsule 00:00: mouth [place] 00 every Medical evening. Branch gabapentin 2022-0 Yes 300mg Take 1 [facility] ers 300 mg 9-14 capsule by ity of capsule 00:00: mouth [place] 00 every Medical evening. Branch gabapentin 2022-0 Yes 300mg Take 1 [facility] ers 300 mg 9-14 capsule by ity of capsule 00:00: mouth [place] 00 every Medical evening. Branch gabapentin 2022-0 Yes 300mg Take 1 [facility] ers 300 mg 9-14 capsule by ity of capsule 00:00: mouth [place] 00 every Medical evening. Branch gabapentin 2022-0 Yes 300mg Take 1 [facility] ers 300 mg 9-14 capsule by ity of capsule 00:00: mouth [place] 00 every Medical evening. Branch gabapentin 2022-0 Yes 300mg Take 1 [facility] ers 300 mg 9-14 capsule by ity of capsule 00:00: mouth [place] 00 every Medical evening. Branch gabapentin 2022-0 Yes 300mg Take 1 [facility] ers 300 mg 9-14 capsule by ity of capsule 00:00: mouth [place] 00 every Medical evening. Branch gabapentin 2022-0 Yes 300mg Take 1 [facility] ers 300 mg 9-14 capsule by ity of capsule 00:00: mouth [place] 00 every Medical evening. Branch gabapentin 2022-0 Yes 300mg Take 1 [facility] ers 300 mg 9-14 capsule by ity of capsule 00:00: mouth [place] 00 every Medical evening. Branch gabapentin 2022-0 Yes 300mg Take 1 [facility] ers 300 mg 9-14 capsule by ity of capsule 00:00: mouth [place] 00 every Medical evening. Branch gabapentin 2022-0 Yes 300mg Take 1 [facility] ers 300 mg 9-14 capsule by ity of capsule 00:00: mouth [place] 00 every Medical evening. Branch gabapentin 2022-0 Yes 300mg Take 1 [facility] ers 300 mg 9-14 capsule by ity of capsule 00:00: mouth [place] 00 every Medical evening. Branch gabapentin 2022-0 Yes 300mg Take 1 [facility] ers 300 mg 9-14 capsule by ity of capsule 00:00: mouth [place] 00 every Medical evening. Branch gabapentin 2022-0 Yes 300mg Take 1 [facility] ers 300 mg 9-14 capsule by ity of capsule 00:00: mouth [place] 00 every Medical evening. Branch gabapentin 2022-0 Yes 300mg Take 1 [facility] ers 300 mg 9-14 capsule by ity of capsule 00:00: mouth [place] 00 every Medical evening. Branch gabapentin 2-0 Yes 300mg Take 1 [facility] ers 300 mg 9-14 capsule by ity of capsule 00:00: mouth [place] 00 every Medical evening. Branch gabapentin 2-0 Yes 300mg Take 1 [facility] ers 300 mg 9-14 capsule by ity of capsule 00:00: mouth [place] 00 every Medical evening. Branch gabapentin 2022-0 Yes 300mg Take 1 [facility] ers 300 mg 9-14 capsule by ity of capsule 00:00: mouth [place] 00 every Medical evening. Branch gabapentin 2022-0 Yes 300mg Take 1 [facility] ers 300 mg 9-14 capsule by ity of capsule 00:00: mouth [place] 00 every Medical evening. Branch gabapentin 2-0 Yes 300mg Take 1 [facility] ers 300 mg 9-14 capsule by ity of capsule 00:00: mouth [place] 00 every Medical evening. Branch insulin 2021-0 Yes [id number] 28U inject 28 [facility] det[facility] 9-02 Units ity of U-100 00:00: under the [place] ([facility]EM[facility] 00 skin at Medical U-100 bedtime. Branch INSULIN) 100 unit/mL injection metformin 2021-0 Yes [id number] 750mg Take 1 [facility] ER 750 mg 9-02 tablet by ity o f 24 hr 00:00: mouth in [place] tablet 00 the Medical morning Branch and 1 tablet in the evening. Take with meals. insulin 2021-0 Yes [id number] 28U inject 28 [facility] detemir 9-02 Units ity of U-100 00:00: under the [place] (LEVEMIR 00 skin at Medical U-100 bedtime. Branch INSULIN) 100 unit/mL injection metformin 2021-0 Yes [id number] 750mg Take 1 [facility] ER 750 mg 9-02 tablet by ity o f 24 hr 00:00: mouth in [place] tablet 00 the Medical morning Branch and 1 tablet in the evening. Take with meals. insulin 2021-0 Yes [id number] 28U inject 28 [facility] detemir 9-02 Units ity of U-100 00:00: under the [place] ([facility]EM[facility] 00 skin at Medical U-100 bedtime. Branch INSULIN) 100 unit/mL injection metformin 2021-0 Yes [id number] 750mg Take 1 [facility] ER 750 mg 9-02 tablet by ity o f 24 hr 00:00: mouth in [place] tablet 00 the Medical morning Branch and 1 tablet in the evening. Take with meals. insulin 2021-0 Yes [id number] 28U inject 28 [facility] detemir 9-02 Units ity of U-100 00:00: under the [place] ([facility] 00 skin at Medical U-100 bedtime. Branch INSULIN) 100 unit/mL injection metformin 2021-0 Yes [id number] 750mg Take 1 [facility] ER 750 mg 9-02 tablet by ity o f 24 hr 00:00: mouth in [place] tablet 00 the Medical morning Branch and 1 tablet in the evening. Take with meals. insulin 2021-0 Yes [id number] 28U inject 28 [facility] detemir 9-02 Units ity of U-100 00:00: under the [place] ([facility]EM[facility] 00 skin at Medical U-100 bedtime. Branch INSULIN) 100 unit/mL injection metformin 2021-0 Yes [id number] 750mg Take 1 [facility] ER 750 mg 9-02 tablet by ity o f 24 hr 00:00: mouth in [place] tablet 00 the Medical morning Branch and 1 tablet in the evening. Take with meals. insulin 2021-0 Yes [id number] 28U inject 28 [facility] detemir 9-02 Units ity of U-100 00:00: under the [place] ([facility] 00 skin at Medical U-100 bedtime. Branch INSULIN) 100 unit/mL injection metformin 2021-0 Yes [id number] 750mg Take 1 [facility] ER 750 mg 9-02 tablet by ity o f 24 hr 00:00: mouth in [place] tablet 00 the Medical morning Branch and 1 tablet in the evening. Take with meals. insulin 2021-0 Yes [id number] 28U inject 28 [facility] detemir 9-02 Units ity of U-100 00:00: under the [place] ([facility] 00 skin at Medical U-100 bedtime. Branch INSULIN) 100 unit/mL injection metformin 2021-0 Yes [id number] 750mg Take 1 [facility] ER 750 mg 9-02 tablet by ity o f 24 hr 00:00: mouth in [place] tablet 00 the Medical morning Branch and 1 tablet in the evening. Take with meals. insulin 202-0 Yes [id number] 28U inject 28 [facility] detemir 9-02 Units ity of U-100 00:00: under the [place] ([facility] 00 skin at Medical U-100 bedtime. Branch INSULIN) 100 unit/mL injection metformin 2021-0 Yes [id number] 750mg Take 1 [facility] ER 750 mg 9-02 tablet by ity o f 24 hr 00:00: mouth in [place] tablet 00 the Medical morning Branch and 1 tablet in the evening. Take with meals. insulin 2021-0 Yes [id number] 28U inject 28 [facility] detemir 9-02 Units ity of U-100 00:00: under the [place] ([facility] 00 skin at Medical U-100 bedtime. Branch INSULIN) 100 unit/mL injection metformin 2021-0 Yes [id number] 750mg Take 1 [facility] ER 750 mg 9-02 tablet by ity o f 24 hr 00:00: mouth in [place] tablet 00 the Medical morning Branch and 1 tablet in the evening. Take with meals. insulin 2021-0 Yes [id number] 28U inject 28 [facility] detemir 9-02 Units ity of U-100 00:00: under the [place] ([facility] 00 skin at Medical U-100 bedtime. Branch INSULIN) 100 unit/mL injection metformin 2021-0 Yes [id number] 750mg Take 1 [facility] ER 750 mg 9-02 tablet by ity o f 24 hr 00:00: mouth in [place] tablet 00 the Medical morning Branch and 1 tablet in the evening. Take with meals. insulin 2021-0 Yes [id number] 28U inject 28 [facility] det[facility]ir 9-02 Units ity of U-100 00:00: under the [place] ([facility] 00 skin at Medical U-100 bedtime. Branch INSULIN) 100 unit/mL injection metformin 2021-0 Yes [id number] 750mg Take 1 [facility] ER 750 mg 9-02 tablet by ity o f 24 hr 00:00: mouth in [place] tablet 00 the Medical morning Branch and 1 tablet in the evening. Take with meals. insulin 2021-0 Yes [id number] 28U inject 28 [facility] detemir 9-02 Units ity of U-100 00:00: under the [place] ([facility] 00 skin at Medical U-100 bedtime. Branch INSULIN) 100 unit/mL injection metformin 2021-0 Yes [id number] 750mg Take 1 [facility] ER 750 mg 9-02 tablet by ity o f 24 hr 00:00: mouth in [place] tablet 00 the Medical morning Branch and 1 tablet in the evening. Take with meals. insulin 2021-0 Yes [id number] 28U inject 28 [facility] det[facility]ir 9-02 Units ity of U-100 00:00: under the [place] ([facility] 00 skin at Medical U-100 bedtime. Branch INSULIN) 100 unit/mL injection metformin 2021-0 Yes [id number] 750mg Take 1 [facility] ER 750 mg 9-02 tablet by ity o f 24 hr 00:00: mouth in [place] tablet 00 the Medical morning Branch and 1 tablet in the evening. Take with meals. insulin 2021-0 Yes [id number] 28U inject 28 [facility] det[facility] 9-02 Units ity of U-100 00:00: under the [place] ([facility] 00 skin at Medical U-100 bedtime. Branch INSULIN) 100 unit/mL injection metformin 2021-0 Yes [id number] 750mg Take 1 [facility] ER 750 mg 9-02 tablet by ity o f 24 hr 00:00: mouth in [place] tablet 00 the Medical morning Branch and 1 tablet in the evening. Take with meals. metformin 2021-0 Yes [id number] 750mg Take 1 [facility] ER 750 mg 9-02 tablet by ity o f 24 hr 00:00: mouth in [place] tablet 00 the Medical morning Branch and 1 tablet in the evening. Take with meals. metformin 2021-0 Yes [id number] 750mg Take 1 [facility] ER 750 mg 9-02 tablet by ity o f 24 hr 00:00: mouth in [place] tablet 00 the Medical morning Branch and 1 tablet in the evening. Take with meals. metformin 2021-0 Yes [id number] 750mg Take 1 [facility] ER 750 mg 9-02 tablet by ity o f 24 hr 00:00: mouth in [place] tablet 00 the Medical morning Branch and 1 tablet in the evening. Take with meals. metformin 2021-0 Yes [id number] 750mg Take 1 [facility] ER 750 mg 9-02 tablet by ity o f 24 hr 00:00: mouth in [place] tablet 00 the Medical morning Branch and 1 tablet in the evening. Take with meals. metformin 2021-0 Yes [id number] 750mg Take 1 [facility] ER 750 mg 9-02 tablet by [facility] o f 24 hr 00:00: mouth in [place] tablet 00 the Medical morning Branch and 1 tablet in the evening. Take with meals. metformin 2022-0 Yes [id number] 750mg Take 1 [facility] ER 750 mg 9-02 tablet by it[facility] o f 24 hr 00:00: mouth in [place] tablet 00 the Medical morning Branch and 1 tablet in the evening. Take with meals. metformin 2-0 Yes [id number] 750mg Take 1 [facility] ER 750 mg 9-02 tablet by ity o f 24 hr 00:00: mouth in [place] tablet 00 the Medical morning Branch and 1 tablet in the evening. Take with meals. metformin 2021-0 Yes [id number] 750mg Take 1 [facility] ER 750 mg 9-02 tablet by ity o f 24 hr 00:00: mouth in [place] tablet 00 the Medical morning Branch and 1 tablet in the evening. Take with meals. metformin 2021-0 Yes [id number] 750mg Take 1 [facility] ER 750 mg 9-02 tablet by [facility] o f 24 hr 00:00: mouth in [place] tablet 00 the Medical morning Branch and 1 tablet in the evening. Take with meals. metformin 2021-0 Yes [id number] 750mg Take 1 [facility] ER 750 mg 9-02 tablet by ity o f 24 hr 00:00: mouth in [place] tablet 00 the Medical morning Branch and 1 tablet in the evening. Take with meals. metformin 2021-0 Yes [id number] 750mg Take 1 [facility] ER 750 mg 9-02 tablet by [facility]y o f 24 hr 00:00: mouth in [place] tablet 00 the Medical morning Branch and 1 tablet in the evening. Take with meals. metformin 2021-0 Yes [id number] 750mg Take 1 [facility] ER 750 mg 9-02 tablet by ity o f 24 hr 00:00: mouth in [place] tablet 00 the Medical morning Branch and 1 tablet in the evening. Take with meals. metformin 2-0 Yes [id number] 750mg Take 1 [facility] ER 750 mg 9-02 tablet by ity o f 24 hr 00:00: mouth in [place] tablet 00 the Medical morning Branch and 1 tablet in the evening. Take with meals. metformin 2-0 Yes [id number] 750mg Take 1 [facility] ER 750 mg 9-02 tablet by ity o f 24 hr 00:00: mouth in [place] tablet 00 the Medical morning Branch and 1 tablet in the evening. Take with meals. metformin 2-0 Yes [id number] 750mg Take 1 [facility] ER 750 mg 9-02 tablet by ity o f 24 hr 00:00: mouth in [place] tablet 00 the Medical morning Branch and 1 tablet in the evening. Take with meals. metformin 2021-0 Yes [id number] 750mg Take 1 [facility] ER 750 mg 9-02 tablet by [facility] o f 24 hr 00:00: mouth in [place] tablet 00 the Medical morning Branch and 1 tablet in the evening. Take with meals. metformin 2021-0 Yes [id number] 750mg Take 1 [facility] ER 750 mg 9-02 tablet by [facility] o f 24 hr 00:00: mouth in [place] tablet 00 the Medical morning Branch and 1 tablet in the evening. Take with meals. metformin 2021-0 Yes [id number] 750mg Take 1 [facility] ER 750 mg 9-02 tablet by it[facility] o f 24 hr 00:00: mouth in [place] tablet 00 the Medical morning Branch and 1 tablet in the evening. Take with meals. metformin 2021-0 Yes [id number] 750mg Take 1 [facility] ER 750 mg 9-02 tablet by ity o f 24 hr 00:00: mouth in [place] tablet 00 the [facility] morning Branch and 1 tablet in the evening. Take with meals. insulin 2022- No [id number] 28U inject 28 [facility] detemir 06-04 01-23 Units ity of U-100 00:00: 00:00 under the [place] (LEVEMIR 00 :00 skin at Medical U-100 bedtime. Branch INSULIN) 100 unit/mL injection insulin 2022- No [id number] 28U inject 28 [facility] detemir 06-04 01-23 Units ity of U-100 00:00: 00:00 under the [place] (LEVEMIR 00 :00 skin at Medical U-100 bedtime. Branch INSULIN) 100 unit/mL injection HYDROcodone 2021- Yes [id number] TAKE 1 [facility] ers -ibuprofen 8-15 TABLET BY ity of 7.5-200 mg 00:00: MOUTH [place] per tablet 00 EVERY SIX [facility] HOURS Branch NEEDED FOR PAIN Indication s: chronic pain HYDROcodone 2021-0 Yes 2745 TAKE 1 [facility] ers -ibuprofen 8-15 TABLET BY ity of 7.5-200 mg 00:00: MOUTH [place] per tablet 00 EVERY SIX [facility] HOURS Branch NEEDED FOR PAIN Indication s: chronic pain HYDROcodone 2021-0 Yes 2745 TAKE 1 [facility] ers -ibuprofen 8-15 TABLET BY ity of 7.5-200 mg 00:00: MOUTH [place] per tablet 00 EVERY SIX [facility] HOURS Branch NEEDED FOR PAIN Indication s: chronic pain HYDROcodone 2021-0 Yes 2745 TAKE 1 [facility] ers -ibuprofen 8-15 TABLET BY ity of 7.5-200 mg 00:00: MOUTH [place] per tablet 00 EVERY SIX [facility] HOURS Branch NEEDED FOR PAIN Indication s: chronic pain HYDROcodone 2021-0 Yes 2745 TAKE 1 [facility] ers -ibuprofen 8-15 TABLET BY ity of 7.5-200 mg 00:00: MOUTH [place] per tablet 00 EVERY SIX [facility] HOURS Branch NEEDED FOR PAIN Indication s: chronic pain HYDROcodone 2021-0 2022- No 2745 TAKE 1 [facility] vers -ibuprofen 8-15 10-05 TABLET BY ity of 7.5-200 mg 00:00: 00:00 MOUTH [place] per tablet 00 :00 EVERY SIX [facility] HOURS Branch NEEDED FOR PAIN Indication s: chronic pain HYDROCHLORO 2021-0 Yes [id number] 12.5mg TAKE 1 [facility] THIAZIDE 5-31 CAPSULE BY ity o f 12.5 mg 00:00: MOUTH [place] capsule 00 DAILY Medical Branch HYDROCHLORO 2022-0 Yes [id number] 12.5mg TAKE 1 [facility] THIAZIDE 5-31 CAPSULE BY ity o f 12.5 mg 00:00: MOUTH [place] capsule 00 DAILY Medical Branch HYDROCHLORO 2022-0 Yes [id number] 12.5mg TAKE 1 [facility] THIAZIDE 5-31 CAPSULE BY ity o f 12.5 mg 00:00: MOUTH [place] capsule 00 DAILY Medical Branch HYDROCHLORO 2022-0 Yes [id number] 12.5mg TAKE 1 [facility] THIAZIDE 5-31 CAPSULE BY ity o f 12.5 mg 00:00: MOUTH [place] capsule 00 DAILY Medical Branch HYDROCHLORO 2022-0 Yes [id number] 12.5mg TAKE 1 [facility] THIAZIDE 5-31 CAPSULE BY ity o f 12.5 mg 00:00: MOUTH [place] capsule 00 DAILY Medical Branch HYDROCHLORO 2022-0 Yes [id number] 12.5mg TAKE 1 [facility] THIAZIDE 5-31 CAPSULE BY ity o f 12.5 mg 00:00: MOUTH [place] capsule 00 DAILY Medical Branch HYDROCHLORO 2022-0 Yes [id number] 12.5mg TAKE 1 [facility] THIAZIDE 5-31 CAPSULE BY ity o f 12.5 mg 00:00: MOUTH [place] capsule 00 DAILY Medical Branch HYDROCHLORO 2022-0 Yes [id number] 12.5mg TAKE 1 [facility] THIAZIDE 5-31 CAPSULE BY ity o f 12.5 mg 00:00: MOUTH [place] capsule 00 DAILY Medical Branch HYDROCHLORO 2-0 Yes [id number] 12.5mg TAKE 1 [facility] THIAZIDE 5-31 CAPSULE BY ity o f 12.5 mg 00:00: MOUTH [place] capsule 00 DAILY Medical Branch HYDROCHLORO 202-0 Yes [id number] 12.5mg TAKE 1 [facility] THIAZIDE 5-31 CAPSULE BY ity o f 12.5 mg 00:00: MOUTH [place] capsule 00 DAILY Medical Branch HYDROCHLORO 2021-0 Yes [id number] 12.5mg TAKE 1 [facility] THIAZIDE 5-31 CAPSULE BY ity o f 12.5 mg 00:00: MOUTH [place] capsule 00 DAILY Medical Branch HYDROCHLORO 2021-0 Yes [id number] 12.5mg TAKE 1 [facility] THIAZIDE 5-31 CAPSULE BY ity o f 12.5 mg 00:00: MOUTH [place] capsule 00 DAILY Medical Branch HYDROCHLORO 2021-0 Yes [id number] 12.5mg TAKE 1 [facility] THIAZIDE 5-31 CAPSULE BY ity o f 12.5 mg 00:00: MOUTH [place] capsule 00 DAILY Medical Branch HYDROCHLORO 2021-0 Yes [id number] 12.5mg TAKE 1 [facility] THIAZIDE 5-31 CAPSULE BY ity o f 12.5 mg 00:00: MOUTH [place] capsule 00 DAILY Medical Branch HYDROCHLORO 2021-0 Yes [id number] 12.5mg TAKE 1 [facility] THIAZIDE 5-31 CAPSULE BY ity o f 12.5 mg 00:00: MOUTH [place] capsule 00 DAILY Medical Branch HYDROCHLORO 2021-0 Yes [id number] 12.5mg TAKE 1 [facility] THIAZIDE 5-31 CAPSULE BY ity o f 12.5 mg 00:00: MOUTH [place] capsule 00 DAILY Medical Branch HYDROCHLORO 2-0 Yes [id number] 12.5mg TAKE 1 [facility] THIAZIDE 5-31 CAPSULE BY ity o f 12.5 mg 00:00: MOUTH [place] capsule 00 DAILY Medical Branch HYDROCHLORO 2022-0 Yes [id number] 12.5mg TAKE 1 [facility] THIAZIDE 5-31 CAPSULE BY ity o f 12.5 mg 00:00: MOUTH [place] capsule 00 DAILY Medical Branch HYDROCHLORO 2022-0 2023- No [id number] 12.5mg TAKE 1 [facility] THIAZIDE 5-31 02-23 CAPSULE BY ity of 12.5 mg 00:00: 00:00 MOUTH [place] capsule 00 :00 DAILY Medical Branch HYDROCHLORO 2-0 2023- No [id number] 12.5mg TAKE 1 [facility] THIAZIDE 5-31 02-23 CAPSULE BY ity of 12.5 mg 00:00: 00:00 MOUTH [place] capsule 00 :00 DAILY Medical Branch lisinopriL 2-0 Yes [id number] 20mg Take 1 [facility] nivers 20 mg 5-26 tablet by ity of tablet 00:00: mouth 00 daily. Medical Branch cefUROXime 2021-0 Yes [id number] 500mg Take 1 [facility] 500 mg 5-26 tablet by ity of tablet 00:00: mouth (two) Medical times Branch daily. lisinopriL 2021-0 Yes [id number] 20mg Take 1 [facility] nivers 20 mg 5-26 tablet by ity of tablet 00:00: mouth 00 daily. Medical Branch cefUROXime 2021-0 Yes [id number] 500mg Take 1 [facility] 500 mg 5-26 tablet by ity of tablet 00:00: mouth (two) Medical times Branch daily. lisinopriL 2021-0 Yes [id number] 20mg Take 1 U nivers 20 mg 5-26 tablet by ity of tablet 00:00: mouth 00 daily. Medical Branch cefUROXime 2021-0 Yes [id number] 500mg Take 1 [facility] 500 mg 5-26 tablet by ity of tablet 00:00: mouth (two) Medical times Branch daily. lisinopriL 2021-0 Yes [id number] 20mg Take 1 U nivers 20 mg 5-26 tablet by ity of tablet 00:00: mouth 00 daily. Medical Branch cefUROXime 2021-0 Yes [id number] 500mg Take 1 [facility] 500 mg 5-26 tablet by ity of tablet 00:00: mouth (two) Medical times Branch daily. lisinopriL 2022-0 Yes [id number] 20mg Take 1 U nivers 20 mg 5-26 tablet by ity of tablet 00:00: mouth 00 daily. Medical Branch cefUROXime 2021-0 Yes [id number] 500mg Take 1 [facility] 500 mg 5-26 tablet by ity of tablet 00:00: mouth (two) Medical times Branch daily. lisinopriL 2022-0 Yes [id number] 20mg Take 1 U nivers 20 mg 5-26 tablet by ity of tablet 00:00: mouth [place] 00 daily. Medical Branch cefUROXime 2-0 Yes [id number] 500mg Take 1 [facility] 500 mg 5-26 tablet by ity of tablet 00:00: mouth 2 (two) Medical times Branch daily. lisinopriL 2022-0 Yes [id number] 20mg Take 1 U nivers 20 mg 5-26 tablet by ity of tablet 00:00: mouth [place] 00 daily. Medical Branch cefUROXime 2-0 Yes [id number] 500mg Take 1 [facility] 500 mg 5-26 tablet by ity of tablet 00:00: mouth (two) Medical times Branch daily. lisinopriL 2022-0 Yes [id number] 20mg Take 1 U nivers 20 mg 5-26 tablet by ity of tablet 00:00: mouth 00 daily. Medical Branch cefUROXime 2-0 Yes [id number] 500mg Take 1 [facility] 500 mg 5-26 tablet by ity of tablet 00:00: mouth (two) Medical times Branch daily. lisinopriL 2-0 Yes [id number] 20mg Take 1 U nivers 20 mg 5-26 tablet by ity of tablet 00:00: mouth 00 daily. Medical Branch cefUROXime 2-0 Yes [id number] 500mg Take 1 [facility] 500 mg 5-26 tablet by ity of tablet 00:00: mouth (two) Medical times Branch daily. lisinopriL 2022-0 Yes [id number] 20mg Take 1 U nivers 20 mg 5-26 tablet by ity of tablet 00:00: mouth 00 daily. Medical Branch cefUROXime 2-0 Yes [id number] 500mg Take 1 [facility] 500 mg 5-26 tablet by ity of tablet 00:00: mouth (two) Medical times Branch daily. lisinopriL 2022-0 Yes [id number] 20mg Take 1 U nivers 20 mg 5-26 tablet by ity of tablet 00:00: mouth 00 daily. Medical Branch cefUROXime 2-0 Yes [id number] 500mg Take 1 [facility] 500 mg 5-26 tablet by ity of tablet 00:00: mouth 2 (two) Medical times Branch daily. lisinopriL 2022-0 Yes [id number] 20mg Take 1 U nivers 20 mg 5-26 tablet by ity of tablet 00:00: mouth 00 daily. Medical Branch cefUROXime 2-0 Yes [id number] 500mg Take 1 [facility] 500 mg 5-26 tablet by ity of tablet 00:00: mouth (two) Medical times Branch daily. lisinopriL 2022-0 Yes [id number] 20mg Take 1 U nivers 20 mg 5-26 tablet by ity of tablet 00:00: mouth 00 daily. Medical Branch cefUROXime 2-0 Yes [id number] 500mg Take 1 [facility] 500 mg 5-26 tablet by ity of tablet 00:00: mouth (two) Medical times Branch daily. lisinopriL 2022-0 Yes [id number] 20mg Take 1 U nivers 20 mg 5-26 tablet by ity of tablet 00:00: mouth 00 daily. Medical Branch cefUROXime 2-0 Yes [id number] 500mg Take 1 [facility] 500 mg 5-26 tablet by ity of tablet 00:00: mouth (two) Medical times Branch daily. lisinopriL 2-0 Yes [id number] 20mg Take 1 U nivers 20 mg 5-26 tablet by ity of tablet 00:00: mouth 00 daily. Medical Branch cefUROXime 2-0 Yes [id number] 500mg Take 1 [facility] 500 mg 5-26 tablet by ity of tablet 00:00: mouth (two) Medical times Branch daily. lisinopriL 2022-0 Yes [id number] 20mg Take 1 U nivers 20 mg 5-26 tablet by ity of tablet 00:00: mouth 00 daily. Medical Branch cefUROXime 2022-0 Yes [id number] 500mg Take 1 [facility] 500 mg 5-26 tablet by ity of tablet 00:00: mouth (two) Medical times Branch daily. lisinopriL 2022-0 Yes [id number] 20mg Take 1 U nivers 20 mg 5-26 tablet by ity of tablet 00:00: mouth 00 daily. Medical Branch cefUROXime 2022-0 Yes [id number] 500mg Take 1 [facility] 500 mg 5-26 tablet by ity of tablet 00:00: mouth 2 (two) Medical times Branch daily. lisinopriL 2022-0 Yes [id number] 20mg Take 1 U nivers 20 mg 5-26 tablet by ity of tablet 00:00: mouth 00 daily. Medical Branch cefUROXime 2-0 Yes [id number] 500mg Take 1 [facility] 500 mg 5-26 tablet by ity of tablet 00:00: mouth (two) Medical times Branch daily. lisinopriL 2022-0 Yes [id number] 20mg Take 1 U nivers 20 mg 5-26 tablet by ity of tablet 00:00: mouth 00 daily. Medical Branch cefUROXime 2-0 Yes [id number] 500mg Take 1 [facility] 500 mg 5-26 tablet by ity of tablet 00:00: mouth (two) Medical times Branch daily. lisinopriL 2-0 Yes [id number] 20mg Take 1 U nivers 20 mg 5-26 tablet by ity of tablet 00:00: mouth 00 daily. Medical Branch cefUROXime 2021-0 Yes [id number] 500mg Take 1 [facility] 500 mg 5-26 tablet by ity of tablet 00:00: mouth (two) Medical times Branch daily. lisinopriL 2-0 Yes [id number] 20mg Take 1 U nivers 20 mg 5-26 tablet by ity of tablet 00:00: mouth 00 daily. Medical Branch cefUROXime 2-0 Yes [id number] 500mg Take 1 [facility] 500 mg 5-26 tablet by ity of tablet 00:00: mouth (two) Medical times Branch daily. lisinopriL 2022-0 Yes [id number] 20mg Take 1 U nivers 20 mg 5-26 tablet by ity of tablet 00:00: mouth 00 daily. Medical Branch cefUROXime 2-0 Yes [id number] 500mg Take 1 [facility] 500 mg 5-26 tablet by ity of tablet 00:00: mouth (two) Medical times Branch daily. lisinopriL 2022-0 Yes [id number] 20mg Take 1 U nivers 20 mg 5-26 tablet by ity of tablet 00:00: mouth 00 daily. Medical Branch cefUROXime 2-0 Yes [id number] 500mg Take 1 [facility] 500 mg 5-26 tablet by ity of tablet 00:00: mouth (two) Medical times Branch daily. lisinopriL 2022-0 Yes [id number] 20mg Take 1 U nivers 20 mg 5-26 tablet by ity of tablet 00:00: mouth 00 daily. Medical Branch cefUROXime 2-0 Yes [id number] 500mg Take 1 [facility] 500 mg 5-26 tablet by ity of tablet 00:00: mouth (two) Medical times Branch daily. lisinopriL 2022-0 Yes [id number] 20mg Take 1 U nivers 20 mg 5-26 tablet by ity of tablet 00:00: mouth 00 daily. Medical Branch cefUROXime 2-0 Yes [id number] 500mg Take 1 [facility] 500 mg 5-26 tablet by ity of tablet 00:00: mouth (two) Medical times Branch daily. lisinopriL 2022-0 Yes [id number] 20mg Take 1 U nivers 20 mg 5-26 tablet by ity of tablet 00:00: mouth 00 daily. Medical Branch cefUROXime 2-0 Yes [id number] 500mg Take 1 [facility] 500 mg 5-26 tablet by ity of tablet 00:00: mouth (two) Medical times Branch daily. lisinopriL 2022-0 Yes [id number] 20mg Take 1 U nivers 20 mg 5-26 tablet by ity of tablet 00:00: mouth 00 daily. Medical Branch cefUROXime 2-0 Yes [id number] 500mg Take 1 [facility] 500 mg 5-26 tablet by ity of tablet 00:00: mouth (two) Medical times Branch daily. lisinopriL 2022-0 Yes [id number] 20mg Take 1 U nivers 20 mg 5-26 tablet by ity of tablet 00:00: mouth 00 daily. Medical Branch cefUROXime 2022-0 Yes [id number] 500mg Take 1 [facility] 500 mg 5-26 tablet by ity of tablet 00:00: mouth 2 (two) Medical times Branch daily. lisinopriL 2022-0 Yes [id number] 20mg Take 1 U nivers 20 mg 5-26 tablet by ity of tablet 00:00: mouth 00 daily. Medical Branch cefUROXime 2022-0 Yes [id number] 500mg Take 1 [facility] 500 mg 5-26 tablet by ity of tablet 00:00: [address] (two) Medical times Branch daily. lisinopriL 2021-0 Yes [id number] 20mg Take 1 U nivers 20 mg 5-26 tablet by ity of tablet 00:00: [facility] 00 daily. Medical Branch cefUROXime 2021-0 Yes [id number] 500mg Take 1 [facility] 500 mg 5-26 tablet by ity of tablet 00:00: [address] (two) Medical times Branch daily. lisinopriL 2021-0 Yes [id number] 20mg Take 1 U nivers 20 mg 5-26 tablet by ity of tablet 00:00: [facility] 00 daily. Medical Branch cefUROXime 2021-0 Yes [id number] 500mg Take 1 [facility] 500 mg 5-26 tablet by ity of tablet 00:00: [address] (two) Medical times [place] daily. lisinopriL 2021-0 Yes [id number] 20mg Take 1 U nivers 20 mg 5-26 tablet by ity of tablet 00:00: [facility] 00 daily. Medical Branch cefUROXime 2021-0 Yes [id number] 500mg Take 1 [facility] 500 mg 5-26 tablet by ity of tablet 00:00: [address] (two) Medical times [place] daily. lisinopriL 2021-0 Yes [id number] 20mg Take 1 U nivers 20 mg 5-26 tablet by ity of tablet 00:00: [facility] 00 daily. Medical Branch cefUROXime 2021-0 Yes [id number] 500mg Take 1 [facility] 500 mg 5-26 tablet by ity of tablet 00:00: [address] (two) Medical times [place] daily. insulin 2021- No [id number] 24U inject 24 [facility] detemir 01-26 Units ity of U-100 00:00: 00:00 under the [place] (LEVEMIR 00 :00 skin at Medical U-100 bedtime. Branch INSULIN) 100 unit/mL injection metformin 2021- No [id number] 750mg Take 1 [facility] ER 750 mg 01-26 tablet by ity of 24 hr 00:00: 00:00 mouth 2 [place] tablet 00 :00 (two) Medical times [place] daily with meals. insulin 2021- No [id number] 24U inject 24 [facility] detemir 01-26 Units ity of U-100 00:00: 00:00 under the [place] (LEVEMIR 00 :00 skin at Medical U-100 bedtime. Branch INSULIN) 100 unit/mL injection metformin 2021- No [id number] 750mg Take 1 [facility] ER 750 mg 01-26 tablet by ity of 24 hr 00:00: 00:00 mouth 2 [place] tablet 00 :00 (two) Medical times Branch daily with meals. HYDROCODONE 2020-10 Yes [id number] TAKE 1 [facility] -ACETAMINOP 2-08 TABLET BY ity of HEN 5-325 00:00: MOUTH [place] mg tablet 00 EVERY FOUR [facility]i var[facility] HOURS Branch NEEDED FOR PAIN HYDROCODONE 2020-10 Yes [id number] TAKE 1 [facility] -ACETAMINOP 2-08 TABLET BY ity of HEN 5-325 00:00: MOUTH [place] mg tablet 00 EVERY FOUR [facility] HOURS Branch NEEDED FOR PAIN HYDROCODONE 2020-10 Yes [id number] TAKE 1 [facility] -ACETAMINOP 2-08 TABLET BY ity of HEN 5-325 00:00: MOUTH [place] mg tablet 00 EVERY FOUR [facility] HOURS Branch NEEDED FOR PAIN HYDROCODONE 2020-10 Yes [id number] TAKE 1 [facility] -ACETAMINOP 2-08 TABLET BY ity of HEN 5-325 00:00: MOUTH [place] mg tablet 00 EVERY FOUR [facility] HOURS Branch NEEDED FOR PAIN HYDROCODONE 2020-10 Yes [id number] TAKE 1 [facility] -ACETAMINOP 2-08 TABLET BY ity of HEN 5-325 00:00: MOUTH [place] mg tablet 00 EVERY FOUR [facility] HOURS Branch NEEDED FOR PAIN HYDROCODONE 2020-10 Yes [id number] TAKE 1 [facility] -ACETAMINOP 2-08 TABLET BY ity of HEN 5-325 00:00: MOUTH [place] mg tablet 00 EVERY FOUR [facility] HOURS Branch NEEDED FOR PAIN HYDROCODONE 2020-10 Yes [id number] TAKE 1 [facility] -ACETAMINOP 2-08 TABLET BY ity of HEN 5-325 00:00: MOUTH [place] mg tablet 00 EVERY FOUR [facility] HOURS Branch NEEDED FOR PAIN HYDROCODONE 2020-10 Yes [id number] TAKE 1 [facility] -ACETAMINOP 2-08 TABLET BY ity of HEN 5-325 00:00: MOUTH [place] mg tablet 00 EVERY FOUR [facility] HOURS Branch NEEDED FOR PAIN HYDROCODONE 2020-10 Yes [id number] TAKE 1 [facility] -ACETAMINOP 2-08 TABLET BY ity of HEN 5-325 00:00: MOUTH [place] mg tablet 00 EVERY FOUR [facility] HOURS Branch NEEDED FOR PAIN HYDROCODONE 2020-10 Yes [id number] TAKE 1 [facility] -ACETAMINOP 2-08 TABLET BY ity of HEN 5-325 00:00: MOUTH [place] mg tablet 00 EVERY FOUR [facility] HOURS Branch NEEDED FOR PAIN HYDROCODONE 2020-10 Yes [id number] TAKE 1 [facility] -ACETAMINOP 2-08 TABLET BY ity of HEN 5-325 00:00: MOUTH [place] mg tablet 00 EVERY FOUR [facility] HOURS Branch NEEDED FOR PAIN HYDROCODONE 2020-10 Yes [id number] TAKE 1 [facility] -ACETAMINOP 2-08 TABLET BY ity of HEN 5-325 00:00: MOUTH [place] mg tablet 00 EVERY FOUR [facility] HOURS Branch NEEDED FOR PAIN HYDROCODONE 2020-10 Yes [id number] TAKE 1 [facility] -ACETAMINOP 2-08 TABLET BY ity of HEN 5-325 00:00: MOUTH [place] mg tablet 00 EVERY FOUR [facility] HOURS Branch NEEDED FOR PAIN HYDROCODONE 2020-10 Yes [id number] TAKE 1 [facility] -ACETAMINOP 2-08 TABLET BY ity of HEN 5-325 00:00: MOUTH [place] mg tablet 00 EVERY FOUR [facility] HOURS Branch NEEDED FOR PAIN HYDROCODONE 2020-10 Yes [id number] TAKE 1 [facility] -ACETAMINOP 2-08 TABLET BY ity of HEN 5-325 00:00: MOUTH [place] mg tablet 00 EVERY FOUR [facility] HOURS Branch NEEDED FOR PAIN HYDROCODONE 2020-10 Yes [id number] TAKE 1 [facility] -ACETAMINOP 2-08 TABLET BY ity of HEN 5-325 00:00: MOUTH [place] mg tablet 00 EVERY FOUR [facility] HOURS Branch NEEDED FOR PAIN HYDROCODONE 2020-10 Yes [id number] TAKE 1 [facility] -ACETAMINOP 2-08 TABLET BY ity of HEN 5-325 00:00: MOUTH [place] mg tablet 00 EVERY FOUR [facility] HOURS Branch NEEDED FOR PAIN HYDROCODONE 2020-10 Yes [id number] TAKE 1 [facility] -ACETAMINOP 2-08 TABLET BY ity of HEN 5-325 00:00: MOUTH [place] mg tablet 00 EVERY FOUR [facility] HOURS Branch NEEDED FOR PAIN HYDROCODONE 2020-10 Yes [id number] TAKE 1 [facility] -ACETAMINOP 2-08 TABLET BY ity of HEN 5-325 00:00: MOUTH [place] mg tablet 00 EVERY FOUR [facility] HOURS Branch NEEDED FOR PAIN HYDROCODONE 2020-10 Yes [id number] TAKE 1 [facility] -ACETAMINOP 2-08 TABLET BY ity of HEN 5-325 00:00: MOUTH [place] mg tablet 00 EVERY FOUR [facility] HOURS Branch NEEDED FOR PAIN HYDROCODONE 2020-10- No [id number] TAKE 1 [facility] -ACETAMINOP 2-08 03-16 TABLET BY it y of HEN 5-325 00:00: 00:00 MOUTH [place] mg tablet 00 :00 EVERY FOUR [facility] HOURS Branch NEEDED FOR PAIN HYDROCODONE 2020-10- No [id number] TAKE 1 [facility] -ACETAMINOP 2-08 03-16 TABLET BY it y of HEN 5-325 00:00: 00:00 MOUTH [place] mg tablet 00 :00 EVERY FOUR [facility] HOURS Branch NEEDED FOR PAIN HYDROCODONE 2020-10- No [id number] TAKE 1 [facility] -ACETAMINOP 2-08 03-16 TABLET BY it y of HEN 5-325 00:00: 00:00 MOUTH [place] mg tablet 00 :00 EVERY FOUR [facility] HOURS Branch NEEDED FOR PAIN ALPRAZOLAM 2020-10 Yes [id number] TAKE 1/2 [facility] 0.25 mg 1-09 TABLET BY ity of tablet 00:00: MOUTH [place] 00 THREE Medical TIMES Branch DAILY NEEDED FOR ANXIETY ALPRAZOLAM 2020-10 Yes [id number] TAKE 1/2 [facility] 0.25 mg 1-09 TABLET BY ity of tablet 00:00: MOUTH [place] 00 THREE Medical TIMES Branch DAILY NEEDED FOR ANXIETY ALPRAZOLAM 2020-10 Yes [id number] TAKE 1/2 [facility] 0.25 mg 1-09 TABLET BY ity of tablet 00:00: MOUTH [place] 00 THREE Medical TIMES Branch DAILY NEEDED FOR ANXIETY ALPRAZOLAM 2020-10 Yes [id number] TAKE 1/2 [facility] 0.25 mg 1-09 TABLET BY ity of tablet 00:00: MOUTH [place] 00 THREE Medical TIMES Branch DAILY NEEDED FOR ANXIETY ALPRAZOLAM 2020-10 Yes [id number] TAKE 1/2 [facility] 0.25 mg 1-09 TABLET BY ity of tablet 00:00: MOUTH [place] 00 THREE Medical TIMES Branch DAILY NEEDED FOR ANXIETY ALPRAZOLAM 2020-10 Yes [id number] TAKE 1/2 [facility] 0.25 mg 1-09 TABLET BY ity of tablet 00:00: MOUTH [place] 00 THREE Medical TIMES Branch DAILY NEEDED FOR ANXIETY ALPRAZOLAM 2020-10 Yes [id number] TAKE 1/2 [facility] 0.25 mg 1-09 TABLET BY ity of tablet 00:00: MOUTH [place] 00 THREE Medical TIMES Branch DAILY NEEDED FOR ANXIETY ALPRAZOLAM 2020-10 Yes [id number] TAKE 1/2 [facility] 0.25 mg 1-09 TABLET BY ity of tablet 00:00: MOUTH [place] 00 THREE Medical TIMES Branch DAILY NEEDED FOR ANXIETY ALPRAZOLAM 2020-10 2022- No [id number] TAKE 1/2 [facility] 0.25 mg 1-09 - TABLET BY ity of tablet 00:00: 00:00 MOUTH [place] 00 :00 THREE Medical TIMES Branch DAILY NEEDED FOR ANXIETY ALPRAZOLAM 2020-102- No [id number] TAKE 1/2 [facility] 0.25 mg 1-09 - TABLET BY ity of tablet 00:00: 00:00 MOUTH [place] 00 :00 THREE Medical TIMES Branch DAILY NEEDED FOR ANXIETY mirtazapine 2020-0 Yes [id number] 7.5mg Take 1 [facility] 7.5 mg 2-24 tablet by ity of tablet 00:00: mouth at [place] [address] bedtime. Medical Branch mirtazapine 2020-0 Yes [id number] 7.5mg Take 1 [facility] 7.5 mg 2-24 tablet by ity of tablet 00:00: mouth at [place] [address] bedtime. Medical Branch mirtazapine 2020-0 Yes [id number] 7.5mg Take 1 [facility] 7.5 mg 2-24 tablet by ity of tablet 00:00: mouth at [place] 00 bedtime. Medical Branch mirtazapine 2020-0 Yes [id number] 7.5mg Take 1 [facility] 7.5 mg 2-24 tablet by ity of tablet 00:00: mouth at [place] 00 bedtime. Medical Branch mirtazapine 2020-0 Yes [id number] 7.5mg Take 1 [facility] 7.5 mg 2-24 tablet by ity of tablet 00:00: mouth at [place] [address] bedtime. Medical Branch mirtazapine 2020-0 Yes [id number] 7.5mg Take 1 [facility] 7.5 mg 2-24 tablet by ity of tablet 00:00: mouth at [place] 00 bedtime. Medical Branch mirtazapine 2020-0 Yes [id number] 7.5mg Take 1 [facility] 7.5 mg 2-24 tablet by ity of tablet 00:00: mouth at [place] bedtime. Medical Branch mirtazapine 2020-0 Yes [id number] 7.5mg Take 1 [facility] 7.5 mg 2-24 tablet by ity of tablet 00:00: mouth at [place] [address] bedtime. Medical Branch mirtazapine 2020-0 2- No [id number] 7.5mg Take 1 [facility] 7.5 mg 2-24 12-21 tablet by ity of tablet 00:00: 00:00 mouth at [place] 00 :00 bedtime. Medical Branch mirtazapine 2020-0 2- No [id number] 7.5mg Take 1 [facility] 7.5 mg 2-24 12-21 tablet by [facility] of tablet 00:00: 00:00 mouth at [place] 00 :00 bedtime. Medical Branch LORazepam 2020-0 Yes [id number] .5mg Take 1 [facility] kelvin 0.5 mg 1-20 tablet by ity of tablet 00:00: mouth [place] (two) Medical times Branch daily as needed for Anxiety. LORazepam 2020-0 Yes [id number] .5mg Take 1 [facility] kelvin 0.5 mg 1-20 tablet by [facility]y of tablet 00:00: mouth (two) Medical times Branch daily as needed for Anxiety. LORazepam 2020-0 Yes [id number] .5mg Take 1 [facility] kelvin 0.5 mg 1-20 tablet by [facility] of tablet 00:00: mouth (two) Medical times Branch daily as needed for Anxiety. LORazepam 2020-0 Yes [id number] .5mg Take 1 [facility] kelvin 0.5 mg 1-20 tablet by [facility] of tablet 00:00: mouth (two) Medical times Branch daily as needed for Anxiety. LORazepam 2020-0 Yes [id number] .5mg Take 1 [facility] kelvin 0.5 mg 1-20 tablet by [facility] of tablet 00:00: mouth (two) Medical times Branch daily as needed for Anxiety. LORazepam 2020-0 Yes [id number] .5mg Take 1 [facility] [place]el[place] 0.5 mg 1-20 tablet by [facility] of tablet 00:00: mouth (two) Medical times Branch daily as needed for Anxiety. LORazepam 1-0 Yes [id number] .5mg Take 1 [facility] [place] 0.5 mg 1-20 tablet by [facility] of tablet 00:00: mouth 2 (two) Medical times Branch daily as needed for Anxiety. LORazepam 2020-0 Yes [id number] .5mg Take 1 [facility] [place]el[place] 0.5 mg 1-20 tablet by [facility] of tablet 00:00: mouth 2 (two) Medical times Branch daily as needed for Anxiety. LORazepam 2020-0 2022- No [id number] .5mg Take 1 [facility] nivers 0.5 mg 1-20 12-21 tablet by [facility] of tablet 00:00: 00:00 mouth 2 [place] 00 :00 (two) Medical times Branch daily as needed for Anxiety. LORazepam 2020-0 2022- No [id number] .5mg Take 1 [facility] nivers 0.5 mg 1-20 12-21 tablet by [facility] of tablet 00:00: 00:00 mouth 2 [place] 00 :00 (two) Medical times Branch daily as needed for Anxiety. ondansetron 2021-0 Yes 4mg Take 1 [facility] ers 4 mg tablet 1-19 tablet by ity of 00:00: mouth 00 every 4 Medical (four) Branch hours as needed for Nausea and Vomiting (N/V). ondansetron 2021-0 Yes 4mg Take 1 [facility] ers 4 mg tablet 1-19 tablet by ity of 00:00: mouth 00 every 4 Medical (four) Branch hours as needed for Nausea and Vomiting (N/V). ondansetron 2021-0 Yes 4mg Take 1 [facility] ers 4 mg tablet 1-19 tablet by ity of 00:00: mouth [place] 00 every 4 Medical (four) Branch hours as needed for Nausea and Vomiting (N/V). ondansetron 2021-0 Yes 4mg Take 1 [facility] ers 4 mg tablet 1-19 tablet by ity of 00:00: mouth [place] 00 every 4 Medical (four) Branch hours as needed for Nausea and Vomiting (N/V). ondansetron 2021-0 Yes 4mg Take 1 [facility] ers 4 mg tablet 1-19 tablet by ity of 00:00: mouth [place] 00 every 4 Medical (four) Branch hours as needed for Nausea and Vomiting (N/V). ondansetron 2021-0 Yes 4mg Take 1 [facility] ers 4 mg tablet 1-19 tablet by ity of 00:00: mouth [place] 00 every 4 Medical (four) Branch hours as needed for Nausea and Vomiting (N/V). ondansetron 2021-0 Yes 4mg Take 1 [facility] ers 4 mg tablet 1-19 tablet by ity of 00:00: mouth [place] 00 every 4 Medical (four) Branch hours as needed for Nausea and Vomiting (N/V). ondansetron 2021-0 Yes 4mg Take 1 [facility] ers 4 mg tablet 1-19 tablet by ity of 00:00: mouth [place] 00 every 4 Medical (four) Branch hours as needed for Nausea and Vomiting (N/V). ondansetron 2021-0 Yes 4mg Take 1 [facility] ers 4 mg tablet 1-19 tablet by ity of 00:00: mouth [place] 00 every 4 Medical (four) Branch hours as needed for Nausea and Vomiting (N/V). ondansetron 2021-0 Yes 4mg Take 1 [facility] ers 4 mg tablet 1-19 tablet by ity of 00:00: mouth [place] 00 every 4 Medical (four) Branch hours as needed for Nausea and Vomiting (N/V). ondansetron 2021-0 Yes 4mg Take 1 [facility] ers 4 mg tablet 1-19 tablet by ity of 00:00: mouth [place] 00 every 4 Medical (four) Branch hours as needed for Nausea and Vomiting (N/V). ondansetron 2021-0 Yes 4mg Take 1 [facility] ers 4 mg tablet 1-19 tablet by ity of 00:00: mouth [place] 00 every 4 Medical (four) Branch hours as needed for Nausea and Vomiting (N/V). ondansetron 2021-0 Yes 4mg Take 1 [facility] ers 4 mg tablet 1-19 tablet by ity of 00:00: mouth [place] 00 every 4 Medical (four) Branch hours as needed for Nausea and Vomiting (N/V). ondansetron 2021-0 Yes 4mg Take 1 [facility] ers 4 mg tablet 1-19 tablet by ity of 00:00: mouth [place] 00 every 4 Medical (four) Branch hours as needed for Nausea and Vomiting (N/V). ondansetron 2021-0 Yes 4mg Take 1 [facility] ers 4 mg tablet 1-19 tablet by ity of 00:00: mouth [place] 00 every 4 Medical (four) Branch hours as needed for Nausea and Vomiting (N/V). ondansetron 2021-0 Yes 4mg Take 1 [facility] ers 4 mg tablet 1-19 tablet by ity of 00:00: mouth [place] 00 every 4 Medical (four) Branch hours as needed for Nausea and Vomiting (N/V). ondansetron 2021-0 Yes 4mg Take 1 [facility] ers 4 mg tablet 1-19 tablet by ity of 00:00: mouth [place] 00 every 4 Medical (four) Branch hours as needed for Nausea and Vomiting (N/V). ondansetron 2021-0 Yes 4mg Take 1 [facility] ers 4 mg tablet 1-19 tablet by ity of 00:00: mouth [place] 00 every 4 Medical (four) Branch hours as needed for Nausea and Vomiting (N/V). ondansetron 2021-0 Yes 4mg Take 1 [facility] 4 mg tablet 1-19 tablet by it[facility] of 00:00: mouth [place] 00 every 4 Medical (four) Branch hours as needed for Nausea and Vomiting (N/V). ondansetron 2021-0 Yes 4mg Take 1 [facility] 4 mg tablet 1-19 tablet by it[facility] of 00:00: mouth [place] 00 every 4 Medical (four) Branch hours as needed for Nausea and Vomiting (N/V). ondansetron 2021-0 Yes 4mg Take 1 [facility] ers 4 mg tablet 1-19 tablet by it[facility] of 00:00: mouth [place] 00 every 4 Medical (four) Branch hours as needed for Nausea and Vomiting (N/V). ondansetron 2021-0 Yes 4mg Take 1 [facility] ers 4 mg tablet 1-19 tablet by ity of 00:00: mouth [place] 00 every 4 Medical (four) Branch hours as needed for Nausea and Vomiting (N/V). ondansetron 2021-0 Yes 4mg Take 1 [facility] 4 mg tablet 1-19 tablet by ity of 00:00: mouth [place] 00 every 4 Medical (four) Branch hours as needed for Nausea and Vomiting (N/V). ondansetron 2021-0 Yes 4mg Take 1 [facility] ers 4 mg tablet 1-19 tablet by ity of 00:00: mouth [place] 00 every 4 Medical (four) Branch hours as needed for Nausea and Vomiting (N/V). ondansetron 2021-0 Yes 4mg Take 1 [facility] ers 4 mg tablet 1-19 tablet by ity of 00:00: mouth [place] 00 every 4 Medical (four) Branch hours as needed for Nausea and Vomiting (N/V). ondansetron 2021-0 Yes 4mg Take 1 [facility] ers 4 mg tablet 1-19 tablet by ity of 00:00: mouth [place] 00 every 4 Medical (four) Branch hours as needed for Nausea and Vomiting (N/V). ondansetron 1-0 Yes 4mg Take 1 [facility] ers 4 mg tablet 1-19 tablet by ity of 00:00: mouth [place] 00 every 4 Medical (four) Branch hours as needed for Nausea and Vomiting (N/V). ondansetron 2021-0 Yes 4mg Take 1 [facility] ers 4 mg tablet 1-19 tablet by ity of 00:00: mouth [place] 00 every 4 Medical (four) Branch hours as needed for Nausea and Vomiting (N/V). ondansetron 2020-0 3- No 4mg Take 1 [facility] vers 4 mg tablet 1-19 04-05 tablet by it y of 00:00: 00:00 mouth [place] 00 :00 every 4 Medical (four) Branch hours as needed for Nausea and Vomiting (N/V). metroNIDAZO 2020-0 Yes [id number] 500mg Take 1 [facility] LE (FLAGYL) 1-14 tablet by [facility]y of 500 mg 00:00: mouth [place] tablet 00 every 8 Medical (eight) Branch hours. neomycin-po 2020-0 Yes [id number] 3[drp] Place 3 [facility] lymyxin-hyd 1-14 [id number] Drops in ity of rocortisone 00:00: left ear 4 [place] 3.5-10,000- 00 (four) Medica l 1 times Branch mg/mL-unit/ daily. mL-% otic susp metroNIDAZO 2020-0 Yes [id number] 500mg Take 1 [facility] LE (FLAGYL) 1-14 tablet by [facility] of 500 mg 00:00: mouth [place] tablet 00 every 8 Medical (eight) Branch hours. neomycin-po 2020-0 Yes [id number] 3[drp] Place 3 [facility] lymyxin-hyd 1-14 [id number] Drops in ity of rocortisone 00:00: left ear 4 [place] 3.5-10,000- 00 (four) Medica l 1 times Branch mg/mL-unit/ daily. mL-% otic susp metroNIDAZO 2020-0 Yes [id number] 500mg Take 1 [facility] LE (FLAGYL) 1-14 tablet by ity of 500 mg 00:00: mouth [place] tablet 00 every 8 Medical (eight) Branch hours. neomycin-po 2020-0 Yes [id number] 3[drp] Place 3 [facility] lymyxin-hyd 1-14 [id number] Drops in ity of rocortisone 00:00: left ear 4 [place] 3.5-10,000- 00 (four) Medica l 1 times Branch mg/mL-unit/ daily. mL-% otic susp metroNIDAZO 2020-0 Yes [id number] 500mg Take 1 [facility] LE (FLAGYL) 1-14 tablet by ity of 500 mg 00:00: mouth [place] tablet 00 every 8 Medical (eight) Branch hours. neomycin-po 2020-0 Yes [id number] 3[drp] Place 3 [facility] lymyxin-hyd 1-14 [id number] Drops in ity of rocortisone 00:00: left ear 4 [place] 3.5-10,000- 00 (four) Medica l 1 times Branch mg/mL-unit/ daily. mL-% otic susp metroNIDAZO 2020-0 Yes [id number] 500mg Take 1 [facility] LE (FLAGYL) 1-14 tablet by ity of 500 mg 00:00: mouth [place] tablet 00 every 8 Medical (eight) Branch hours. neomycin-po 2020-0 Yes [id number] 3[drp] Place 3 [facility] lymyxin-hyd 1-14 [id number] Drops in ity of rocortisone 00:00: left ear 4 [place] 3.5-10,000- 00 (four) Medica l 1 times Branch mg/mL-unit/ daily. mL-% otic susp metroNIDAZO 2020-0 Yes [id number] 500mg Take 1 [facility] LE (FLAGYL) 1-14 tablet by ity of 500 mg 00:00: mouth [place] tablet 00 every 8 Medical (eight) Branch hours. neomycin-po 2020-0 Yes [id number] 3[drp] Place 3 [facility] lymyxin-hyd 1-14 [id number] Drops in ity of rocortisone 00:00: left ear 4 [place] 3.5-10,000- 00 (four) Medica l 1 times Branch mg/mL-unit/ daily. mL-% otic susp metroNIDAZO 2020-0 Yes [id number] 500mg Take 1 [facility] LE (FLAGYL) 1-14 tablet by ity of 500 mg 00:00: mouth [place] tablet 00 every 8 Medical (eight) Branch hours. neomycin-po 2020-0 Yes [id number] 3[drp] Place 3 [facility] lymyxin-hyd 1-14 [id number] Drops in ity of rocortisone 00:00: left ear 4 [place] 3.5-10,000- 00 (four) Medica l 1 times Branch mg/mL-unit/ daily. mL-% otic susp metroNIDAZO 2020-0 Yes [id number] 500mg Take 1 [facility] LE (FLAGYL) 1-14 tablet by ity of 500 mg 00:00: mouth [place] tablet 00 every 8 Medical (eight) Branch hours. neomycin-po 2020-0 Yes [id number] 3[drp] Place 3 [facility] lymyxin-hyd 1-14 [id number] Drops in ity of rocortisone 00:00: left ear 4 [place] 3.5-10,000- 00 (four) Medica l 1 times Branch mg/mL-unit/ daily. mL-% otic susp metroNIDAZO 2020-0 Yes [id number] 500mg Take 1 [facility] LE (FLAGYL) 1-14 tablet by ity of 500 mg 00:00: mouth [place] tablet 00 every 8 Medical (eight) Branch hours. neomycin-po 2020-0 Yes [id number] 3[drp] Place 3 [facility] lymyxin-hyd 1-14 [id number] Drops in ity of rocortisone 00:00: left ear 4 [place] 3.5-10,000- 00 (four) Medica l 1 times Branch mg/mL-unit/ daily. mL-% otic susp metroNIDAZO 2020-0 Yes [id number] 500mg Take 1 [facility] LE (FLAGYL) 1-14 tablet by ity of 500 mg 00:00: mouth [place] tablet 00 every 8 Medical (eight) Branch hours. neomycin-po 2020-0 Yes [id number] 3[drp] Place 3 [facility] lymyxin-hyd 1-14 [id number] Drops in ity of rocortisone 00:00: left ear 4 [place] 3.5-10,000- 00 (four) Medica l 1 times Branch mg/mL-unit/ daily. mL-% otic susp metroNIDAZO 2020-0 Yes [id number] 500mg Take 1 [facility] LE (FLAGYL) 1-14 tablet by ity of 500 mg 00:00: mouth [place] tablet 00 every 8 Medical (eight) Branch hours. neomycin-po Yes [id number] 3[drp] Place 3 [facility] lymyxin-hyd 1-14 [id number] Drops in ity of rocortisone 00:00: left ear 4 [place] 3.5-10,000- 00 (four) Medica l 1 times Branch mg/mL-unit/ daily. mL-% otic susp metroNIDAZO 0 Yes [id number] 500mg Take 1 [facility] LE (FLAGYL) 1-14 tablet by ity of 500 mg 00:00: mouth [place] tablet 00 every 8 Medical (eight) Branch hours. neomycin-po 0 Yes [id number] 3[drp] Place 3 [facility] lymyxin-hyd 1-14 [id number] Drops in ity of rocortisone 00:00: left ear 4 [place] 3.5-10,000- 00 (four) Medica l 1 times Branch mg/mL-unit/ daily. mL-% otic susp metroNIDAZO 0 Yes [id number] 500mg Take 1 [facility] LE (FLAGYL) 1-14 tablet by ity of 500 mg 00:00: mouth [place] tablet 00 every 8 Medical (eight) Branch hours. neomycin-po 0 Yes [id number] 3[drp] Place 3 [facility] lymyxin-hyd 1-14 [id number] Drops in ity of rocortisone 00:00: left ear 4 [place] 3.5-10,000- 00 (four) Medica l 1 times Branch mg/mL-unit/ daily. mL-% otic susp metroNIDAZO 2020-0 Yes [id number] 500mg Take 1 [facility] LE (FLAGYL) 1-14 tablet by ity of 500 mg 00:00: mouth [place] tablet 00 every 8 Medical (eight) Branch hours. neomycin-po 2020-0 Yes [id number] 3[drp] Place 3 [facility] lymyxin-hyd 1-14 [id number] Drops in ity of rocortisone 00:00: left ear 4 [place] 3.5-10,000- 00 (four) Medica l 1 times Branch mg/mL-unit/ daily. mL-% otic susp metroNIDAZO 0 Yes [id number] 500mg Take 1 [facility] LE (FLAGYL) 1-14 tablet by ity of 500 mg 00:00: mouth [place] tablet 00 every 8 Medical (eight) Branch hours. neomycin-po Yes [id number] 3[drp] Place 3 [facility] lymyxin-hyd 1-14 [id number] Drops in ity of rocortisone 00:00: left ear 4 [place] 3.5-10,000- 00 (four) Medica l 1 times Branch mg/mL-unit/ daily. mL-% otic susp metroNIDAZO 0 Yes [id number] 500mg Take 1 [facility] LE (FLAGYL) 1-14 tablet by ity of 500 mg 00:00: mouth [place] tablet 00 every 8 Medical (eight) Branch hours. neomycin-po 0 Yes [id number] 3[drp] Place 3 [facility] lymyxin-hyd 1-14 [id number] Drops in ity of rocortisone 00:00: left ear 4 [place] 3.5-10,000- 00 (four) Medica l 1 times Branch mg/mL-unit/ daily. mL-% otic susp metroNIDAZO 0 Yes [id number] 500mg Take 1 [facility] LE (FLAGYL) 1-14 tablet by ity of 500 mg 00:00: mouth [place] tablet 00 every 8 Medical (eight) Branch hours. neomycin-po 0 Yes [id number] 3[drp] Place 3 [facility] lymyxin-hyd 1-14 [id number] Drops in ity of rocortisone 00:00: left ear 4 [place] 3.5-10,000- 00 (four) Medica l 1 times Branch mg/mL-unit/ daily. mL-% otic susp metroNIDAZO 0 Yes [id number] 500mg Take 1 [facility] LE (FLAGYL) 1-14 tablet by ity of 500 mg 00:00: mouth [place] tablet 00 every 8 Medical (eight) Branch hours. neomycin-po 2020-0 Yes [id number] 3[drp] Place 3 [facility] lymyxin-hyd 1-14 [id number] Drops in ity of rocortisone 00:00: left ear 4 [place] 3.5-10,000- 00 (four) Medica l 1 times Branch mg/mL-unit/ daily. mL-% otic susp metroNIDAZO 0 Yes [id number] 500mg Take 1 [facility] LE (FLAGYL) 1-14 tablet by ity of 500 mg 00:00: mouth [place] tablet 00 every 8 Medical (eight) Branch hours. neomycin-po Yes [id number] 3[drp] Place 3 [facility] lymyxin-hyd 1-14 [id number] Drops in ity of rocortisone 00:00: left ear 4 [place] 3.5-10,000- 00 (four) Medica l 1 times Branch mg/mL-unit/ daily. mL-% otic susp metroNIDAZO 0 Yes [id number] 500mg Take 1 [facility] LE (FLAGYL) 1-14 tablet by ity of 500 mg 00:00: mouth [place] tablet 00 every 8 Medical (eight) Branch hours. neomycin-po Yes [id number] 3[drp] Place 3 [facility] lymyxin-hyd 1-14 [id number] Drops in ity of rocortisone 00:00: left ear 4 [place] 3.5-10,000- 00 (four) Medica l 1 times Branch mg/mL-unit/ daily. mL-% otic susp metroNIDAZO 0 Yes [id number] 500mg Take 1 [facility] LE (FLAGYL) 1-14 tablet by ity of 500 mg 00:00: mouth [place] tablet 00 every 8 Medical (eight) Branch hours. neomycin-po Yes [id number] 3[drp] Place 3 [facility] lymyxin-hyd 1-14 [id number] Drops in ity of rocortisone 00:00: left ear 4 [place] 3.5-10,000- 00 (four) Medica l 1 times Branch mg/mL-unit/ daily. mL-% otic susp metroNIDAZO 0 Yes [id number] 500mg Take 1 [facility] LE (FLAGYL) 1-14 tablet by ity of 500 mg 00:00: mouth [place] tablet 00 every 8 Medical (eight) Branch hours. neomycin-po Yes [id number] 3[drp] Place 3 [facility] lymyxin-hyd 1-14 [id number] Drops in ity of rocortisone 00:00: left ear 4 [place] 3.5-10,000- 00 (four) Medica l 1 times Branch mg/mL-unit/ daily. mL-% otic susp metroNIDAZO 2020-0 Yes [id number] 500mg Take 1 [facility] LE (FLAGYL) 1-14 tablet by ity of 500 mg 00:00: mouth [place] tablet 00 every 8 Medical (eight) Branch hours. neomycin-po 2020-0 Yes [id number] 3[drp] Place 3 [facility] lymyxin-hyd 1-14 [id number] Drops in ity of rocortisone 00:00: left ear 4 [place] 3.5-10,000- 00 (four) Medica l 1 times Branch mg/mL-unit/ daily. mL-% otic susp metroNIDAZO 0 Yes [id number] 500mg Take 1 [facility] LE (FLAGYL) 1-14 tablet by ity of 500 mg 00:00: mouth [place] tablet 00 every 8 Medical (eight) Branch hours. neomycin-po 2020-0 Yes [id number] 3[drp] Place 3 [facility] lymyxin-hyd 1-14 [id number] Drops in ity of rocortisone 00:00: left ear 4 [place] 3.5-10,000- 00 (four) Medica l 1 times Branch mg/mL-unit/ daily. mL-% otic susp metroNIDAZO 2020-0 Yes [id number] 500mg Take 1 [facility] LE (FLAGYL) 1-14 tablet by ity of 500 mg 00:00: mouth [place] tablet 00 every 8 Medical (eight) Branch hours. neomycin-po 2020-0 Yes [id number] 3[drp] Place 3 [facility] lymyxin-hyd 1-14 [id number] Drops in ity of rocortisone 00:00: left ear 4 [place] 3.5-10,000- 00 (four) Medica l 1 times Branch mg/mL-unit/ daily. mL-% otic susp metroNIDAZO 2020-0 Yes [id number] 500mg Take 1 [facility] LE (FLAGYL) 1-14 tablet by ity of 500 mg 00:00: mouth [place] tablet 00 every 8 Medical (eight) Branch hours. neomycin-po 2020-0 Yes [id number] 3[drp] Place 3 [facility] lymyxin-hyd 1-14 [id number] Drops in ity of rocortisone 00:00: left ear 4 [place] 3.5-10,000- 00 (four) Medica l 1 times Branch mg/mL-unit/ daily. mL-% otic susp metroNIDAZO 0 Yes [id number] 500mg Take 1 [facility] LE (FLAGYL) 1-14 tablet by ity of 500 mg 00:00: mouth [place] tablet 00 every 8 Medical (eight) Branch hours. neomycin-po Yes [id number] 3[drp] Place 3 [facility] lymyxin-hyd 1-14 [id number] Drops in ity of rocortisone 00:00: left ear 4 [place] 3.5-10,000- 00 (four) Medica l 1 times Branch mg/mL-unit/ daily. mL-% otic susp metroNIDAZO 0 Yes [id number] 500mg Take 1 [facility] LE (FLAGYL) 1-14 tablet by ity of 500 mg 00:00: mouth [place] tablet 00 every 8 Medical (eight) Branch hours. neomycin-po 0 Yes [id number] 3[drp] Place 3 [facility] lymyxin-hyd 1-14 [id number] Drops in ity of rocortisone 00:00: left ear 4 [place] 3.5-10,000- 00 (four) Medica l 1 times Branch mg/mL-unit/ daily. mL-% otic susp metroNIDAZO 0 Yes [id number] 500mg Take 1 [facility] LE (FLAGYL) 1-14 tablet by ity of 500 mg 00:00: mouth [place] tablet 00 every 8 Medical (eight) Branch hours. neomycin-po 0 Yes [id number] 3[drp] Place 3 [facility] lymyxin-hyd 1-14 [id number] Drops in ity of rocortisone 00:00: left ear 4 [place] 3.5-10,000- 00 (four) Medica l 1 times Branch mg/mL-unit/ daily. mL-% otic susp metroNIDAZO 0 Yes [id number] 500mg Take 1 [facility] LE (FLAGYL) 1-14 tablet by ity of 500 mg 00:00: mouth [place] tablet 00 every 8 Medical (eight) Branch hours. neomycin-po 2020-0 Yes [id number] 3[drp] Place 3 [facility] lymyxin-hyd 1-14 [id number] Drops in ity of rocortisone 00:00: left ear 4 [place] 3.5-,000- 00 (four) Medica l 1 times Branch mg/mL-unit/ daily. mL-% otic susp metroNIDAZO Yes [id number] 500mg Take 1 [facility] LE (FLAGYL) 1-14 tablet by ity of 500 mg 00:00: mouth [place] tablet 00 every 8 Medical (eight) Branch hours. neomycin-po Yes [id number] 3[drp] Place 3 [facility] lymyxin-hyd 1-14 [id number] Drops in ity of rocortisone 00:00: left ear 4 [place] 3.5-,000- 00 (four) Medica l 1 times Branch mg/mL-unit/ daily. mL-% otic susp metroNIDAZO Yes [id number] 500mg Take 1 [facility] LE (FLAGYL) 1-14 tablet by ity of 500 mg 00:00: mouth [place] tablet 00 every 8 Medical (eight) Branch hours. neomycin-po 0 Yes [id number] 3[drp] Place 3 [facility] lymyxin-hyd 1-14 [id number] Drops in ity of rocortisone 00:00: left ear 4 [place] 3.5-,000- 00 (four) Medica l 1 times Branch mg/mL-unit/ daily. mL-% otic susp metroNIDAZO Yes [id number] 500mg Take 1 [facility] LE (FLAGYL) 1-14 tablet by ity of 500 mg 00:00: mouth [place] tablet 00 every 8 Medical (eight) Branch hours. neomycin-po 0 Yes [id number] 3[drp] Place 3 [facility] lymyxin-hyd 1-14 [id number] Drops in ity of rocortisone 00:00: left ear 4 [place] 3.5-,000- 00 (four) Medica l 1 times Branch mg/mL-unit/ daily. mL-% otic susp sennosides- 2019-0 Yes [id number] 1{tbl} Take 1 [facility] docusate 5-11 tablet by ity of sodium 00:00: mouth [place] (ADONIS-COLAC 00 daily. Medica l E) 8.6-50 Branch mg per tablet sennosides- 2020-0 Yes [id number] 1{tbl} Take 1 [facility] docusate 5-11 tablet by ity of sodium 00:00: mouth [place] (ADONIS-COLAC 00 daily. Medica l E) 8.6-50 Branch mg per tablet sennosides- 2020-0 Yes [id number] 1{tbl} Take 1 [facility] docusate 5-11 tablet by ity of sodium 00:00: mouth [place] (ADONIS-COLAC 00 daily. Medica l E) 8.6-50 Branch mg per tablet sennosides- 2020-0 Yes [id number] 1{tbl} Take 1 [facility] docusate 5-11 tablet by ity of sodium 00:00: mouth [place] (ADONIS-COLAC 00 daily. Medica l E) 8.6-50 Branch mg per tablet sennosides- 2020-0 Yes [id number] 1{tbl} Take 1 [facility] docusate 5-11 tablet by ity of sodium 00:00: mouth [place] (ADONIS-COLAC 00 daily. Medica l E) 8.6-50 Branch mg per tablet sennosides- 2020-0 Yes [id number] 1{tbl} Take 1 [facility] docusate 5-11 tablet by ity of sodium 00:00: mouth [place] (ADONIS-COLAC 00 daily. Medica l E) 8.6-50 Branch mg per tablet sennosides- 2020-0 Yes [id number] 1{tbl} Take 1 [facility] docusate 5-11 tablet by ity of sodium 00:00: mouth [place] (ADONIS-COLAC 00 daily. Medica l E) 8.6-50 Branch mg per tablet sennosides- 2020-0 Yes [id number] 1{tbl} Take 1 [facility] docusate 5-11 tablet by ity of sodium 00:00: mouth [place] (ADONIS-COLAC 00 daily. Medica l E) 8.6-50 Branch mg per tablet sennosides- 2020-0 Yes [id number] 1{tbl} Take 1 [facility] docusate 5-11 tablet by ity of sodium 00:00: mouth [place] (ADONIS-COLAC 00 daily. Medica l E) 8.6-50 Branch mg per tablet sennosides- 2020-0 Yes [id number] 1{tbl} Take 1 [facility] docusate 5-11 tablet by ity of sodium 00:00: mouth [place] (ADONIS-COLAC 00 daily. Medica l E) 8.6-50 Branch mg per tablet sennosides- 2020-0 Yes [id number] 1{tbl} Take 1 [facility] docusate 5-11 tablet by ity of sodium 00:00: mouth [place] (ADONIS-COLAC 00 daily. Medica l E) 8.6-50 Branch mg per tablet sennosides- 2020-0 Yes [id number] 1{tbl} Take 1 [facility] docusate 5-11 tablet by ity of sodium 00:00: mouth [place] (ADONIS-COLAC 00 daily. Medica l E) 8.6-50 Branch mg per tablet sennosides- 2020-0 Yes [id number] 1{tbl} Take 1 [facility] docusate 5-11 tablet by ity of sodium 00:00: mouth [place] (ADONIS-COLAC 00 daily. Medica l E) 8.6-50 Branch mg per tablet sennosides- 2020-0 Yes [id number] 1{tbl} Take 1 [facility] docusate 5-11 tablet by ity of sodium 00:00: mouth [place] (ADONIS-COLAC 00 daily. Medica l E) 8.6-50 Branch mg per tablet sennosides- 2020-0 Yes [id number] 1{tbl} Take 1 [facility] docusate 5-11 tablet by ity of sodium 00:00: mouth [place] (ADONIS-COLAC 00 daily. Medica l E) 8.6-50 Branch mg per tablet sennosides- 2020-0 Yes [id number] 1{tbl} Take 1 [facility] docusate 5-11 tablet by ity of sodium 00:00: mouth [place] (ADONIS-COLAC 00 daily. Medica l E) 8.6-50 Branch mg per tablet sennosides- 2020-0 Yes [id number] 1{tbl} Take 1 [facility] docusate 5-11 tablet by ity of sodium 00:00: mouth [place] (ADONIS-COLAC 00 daily. Medica l E) 8.6-50 Branch mg per tablet sennosides- 2020-0 Yes [id number] 1{tbl} Take 1 [facility] docusate 5-11 tablet by ity of sodium 00:00: mouth [place] (ADONIS-COLAC 00 daily. Medica l E) 8.6-50 Branch mg per tablet sennosides- 2020-0 Yes [id number] 1{tbl} Take 1 [facility] docusate 5-11 tablet by ity of sodium 00:00: mouth [place] (ADONIS-COLAC 00 daily. Medica l E) 8.6-50 Branch mg per tablet sennosides- 2020-0 Yes [id number] 1{tbl} Take 1 [facility] docusate 5-11 tablet by ity of sodium 00:00: mouth [place] (ADONIS-COLAC 00 daily. Medica l E) 8.6-50 Branch mg per tablet sennosides- 2020-0 Yes [id number] 1{tbl} Take 1 [facility] docusate 5-11 tablet by ity of sodium 00:00: mouth [place] (ADONIS-COLAC 00 daily. Medica l E) 8.6-50 Branch mg per tablet sennosides- 2020-0 Yes [id number] 1{tbl} Take 1 [facility] docusate 5-11 tablet by ity of sodium 00:00: mouth [place] (ADONIS-COLAC 00 daily. Medica l E) 8.6-50 Branch mg per tablet sennosides- 2020-0 Yes [id number] 1{tbl} Take 1 [facility] docusate 5-11 tablet by ity of sodium 00:00: mouth [place] (ADONIS-COLAC 00 daily. Medica l E) 8.6-50 Branch mg per tablet sennosides- 2020-0 Yes [id number] 1{tbl} Take 1 [facility] docusate 5-11 tablet by ity of sodium 00:00: mouth [place] (ADONIS-COLAC 00 daily. Medica l E) 8.6-50 Branch mg per tablet sennosides- 2020-0 Yes [id number] 1{tbl} Take 1 [facility] docusate 5-11 tablet by ity of sodium 00:00: mouth [place] (ADONIS-COLAC 00 daily. Medica l E) 8.6-50 Branch mg per tablet sennosides- 2020-0 Yes [id number] 1{tbl} Take 1 [facility] docusate 5-11 tablet by ity of sodium 00:00: mouth [place] (ADONIS-COLAC 00 daily. Medica l E) 8.6-50 Branch mg per tablet sennosides Yes [id number] 1{tbl} Take 1 [facility] docusate 5-11 tablet by ity of sodium 00:00: mouth [place] (ADONIS-COLAC 00 daily. Medica l E) 8.6-50 Branch mg per tablet sennosides Yes [id number] 1{tbl} Take 1 [facility] docusate 5-11 tablet by ity of sodium 00:00: mouth [place] (ADONIS-COLAC 00 daily. Medica l E) 8.6-50 Branch mg per tablet sennosides- Yes [id number] 1{tbl} Take 1 Univers docusate 5-11 tablet by ity of sodium 00:00: mouth [place] (ADONIS-COLAC 00 daily. Medica l E) 8.6-50 Branch mg per tablet sennosides Yes [id number] 1{tbl} Take 1 [facility] docusate 5-11 tablet by ity of sodium 00:00: mouth [place] (ADONIS-COLAC 00 daily. Medica l E) 8.6-50 Branch mg per tablet sennosides Yes [id number] 1{tbl} Take 1 [facility] docusate 5-11 tablet by ity of sodium 00:00: mouth [place] (ADONIS-COLAC 00 daily. Medica l E) 8.6-50 Branch mg per tablet sennosides Yes [id number] 1{tbl} Take 1 [facility] docusate 5-11 tablet by ity of sodium 00:00: mouth [place] (ADONIS-COLAC 00 daily. Medica l E) 8.6-50 Branch mg per tablet sennosides Yes [id number] 1{tbl} Take 1 Univers docusate 5-11 tablet by ity of sodium 00:00: mouth [place] (ADONIS-COLAC 00 daily. Medica l E) 8.6-50 Branch mg per tablet ondansetron 2017-10 Yes 4mg Take 1 Univ ers (ZOFRAN) 4 2-28 tablet by ity of mg tablet 00:00: mouth [place] 00 every 8 Medical (eight) Branch hours as needed for Nausea and Vomiting (N/V). ondansetron 2017-10 Yes 4mg Take 1 Univ ers (ZOFRAN) 4 2-28 tablet by ity of mg tablet 00:00: mouth [place] 00 every 8 Medical (eight) Branch hours as needed for Nausea and Vomiting (N/V). ondansetron 2017- Yes 4mg Take 1 Univ ers (ZOFRAN) 4 2-28 tablet by ity of mg tablet 00:00: mouth [place] 00 every 8 Medical (eight) Branch hours as needed for Nausea and Vomiting (N/V). ondansetron 2017- Yes 4mg Take 1 Univ ers (ZOFRAN) 4 2-28 tablet by ity of mg tablet 00:00: mouth [place] 00 every 8 Medical (eight) Branch hours as needed for Nausea and Vomiting (N/V). ondansetron 2017- Yes 4mg Take 1 Univ ers (ZOFRAN) 4 2-28 tablet by ity of mg tablet 00:00: mouth [place] 00 every 8 Medical (eight) Branch hours as needed for Nausea and Vomiting (N/V). ondansetron 2017- Yes 4mg Take 1 Univ ers (ZOFRAN) 4 2-28 tablet by ity of mg tablet 00:00: mouth [place] 00 every 8 Medical (eight) Branch hours as needed for Nausea and Vomiting (N/V). ondansetron 2017-10 Yes 4mg Take 1 Univ ers (ZOFRAN) 4 2-28 tablet by ity of mg tablet 00:00: mouth [place] 00 every 8 Medical (eight) Branch hours as needed for Nausea and Vomiting (N/V). ondansetron 2017- Yes 4mg Take 1 Univ ers (ZOFRAN) 4 2-28 tablet by ity of mg tablet 00:00: mouth [place] 00 every 8 Medical (eight) Branch hours as needed for Nausea and Vomiting (N/V). ondansetron 2017- Yes 4mg Take 1 Univ ers (ZOFRAN) 4 2-28 tablet by ity of mg tablet 00:00: mouth [place] 00 every 8 Medical (eight) Branch hours as needed for Nausea and Vomiting (N/V). ondansetron 2017- Yes 4mg Take 1 Univ ers (ZOFRAN) 4 2-28 tablet by ity of mg tablet 00:00: mouth [place] 00 every 8 Medical (eight) Branch hours as needed for Nausea and Vomiting (N/V). ondansetron 2017- Yes 4mg Take 1 Univ ers (ZOFRAN) 4 2-28 tablet by ity of mg tablet 00:00: mouth [place] 00 every 8 Medical (eight) Branch hours as needed for Nausea and Vomiting (N/V). ondansetron 2017- Yes 4mg Take 1 Univ ers (ZOFRAN) 4 2-28 tablet by ity of mg tablet 00:00: mouth [place] 00 every 8 Medical (eight) Branch hours as needed for Nausea and Vomiting (N/V). ondansetron 2017-10 Yes 4mg Take 1 Univ ers (ZOFRAN) 4 2-28 tablet by ity of mg tablet 00:00: mouth [place] 00 every 8 Medical (eight) Branch hours as needed for Nausea and Vomiting (N/V). ondansetron 2017- Yes 4mg Take 1 Univ ers (ZOFRAN) 4 2-28 tablet by ity of mg tablet 00:00: mouth [place] 00 every 8 Medical (eight) Branch hours as needed for Nausea and Vomiting (N/V). ondansetron 2017-10 Yes 4mg Take 1 Univ ers (ZOFRAN) 4 2-28 tablet by ity of mg tablet 00:00: mouth [place] 00 every 8 Medical (eight) Branch hours as needed for Nausea and Vomiting (N/V). ondansetron 2017- Yes 4mg Take 1 Univ ers (ZOFRAN) 4 2-28 tablet by ity of mg tablet 00:00: mouth [place] 00 every 8 Medical (eight) Branch hours as needed for Nausea and Vomiting (N/V). ondansetron 2017-10 Yes 4mg Take 1 [facility] ers (ZOFRAN) 4 2-28 tablet by ity of mg tablet 00:00: mouth [place] 00 every 8 Medical (eight) Branch hours as needed for Nausea and Vomiting (N/V). ondansetron 2017- Yes 4mg Take 1 [facility] ers (ZOFRAN) 4 2-28 tablet by ity of mg tablet 00:00: mouth [place] 00 every 8 Medical (eight) Branch hours as needed for Nausea and Vomiting (N/V). ondansetron 2017- Yes 4mg Take 1 [facility] ers (ZOFRAN) 4 2-28 tablet by ity of mg tablet 00:00: mouth [place] 00 every 8 Medical (eight) Branch hours as needed for Nausea and Vomiting (N/V). ondansetron 2018- Yes 4mg Take 1 Univ ers (ZOFRAN) 4 2-28 tablet by ity of mg tablet 00:00: mouth [place] 00 every 8 Medical (eight) Branch hours as needed for Nausea and Vomiting (N/V). ondansetron 2018- Yes 4mg Take 1 [facility] ers (ZOFRAN) 4 2-28 tablet by ity of mg tablet 00:00: mouth [place] 00 every 8 Medical (eight) Branch hours as needed for Nausea and Vomiting (N/V). ondansetron 2017- Yes 4mg Take 1 [facility] ers (ZOFRAN) 4 2-28 tablet by ity of mg tablet 00:00: mouth [place] 00 every 8 Medical (eight) Branch hours as needed for Nausea and Vomiting (N/V). ondansetron 2017- Yes 4mg Take 1 Univ ers (ZOFRAN) 4 2-28 tablet by ity of mg tablet 00:00: mouth [place] 00 every 8 Medical (eight) Branch hours as needed for Nausea and Vomiting (N/V). ondansetron 2017- Yes 4mg Take 1 [facility] ers (ZOFRAN) 4 2-28 tablet by ity of mg tablet 00:00: mouth [place] 00 every 8 Medical (eight) Branch hours as needed for Nausea and Vomiting (N/V). ondansetron 2017- Yes 4mg Take 1 [facility] ers (ZOFRAN) 4 2-28 tablet by ity of mg tablet 00:00: mouth [place] 00 every 8 Medical (eight) Branch hours as needed for Nausea and Vomiting (N/V). ondansetron 2017- Yes 4mg Take 1 Univ ers (ZOFRAN) 4 2-28 tablet by ity of mg tablet 00:00: mouth [place] 00 every 8 Medical (eight) Branch hours as needed for Nausea and Vomiting (N/V). ondansetron 2018- Yes 4mg Take 1 Univ ers (ZOFRAN) 4 2-28 tablet by ity of mg tablet 00:00: mouth [place] 00 every 8 Medical (eight) Branch hours as needed for Nausea and Vomiting (N/V). ondansetron 2018- Yes 4mg Take 1 [facility] ers (ZOFRAN) 4 2-28 tablet by ity of mg tablet 00:00: mouth [place] 00 every 8 Medical (eight) Branch hours as needed for Nausea and Vomiting (N/V). ondansetron 2017-10 Yes 4mg Take 1 Univ ers (ZOFRAN) 4 2-28 tablet by ity of mg tablet 00:00: mouth [place] 00 every 8 Medical (eight) Branch hours as needed for Nausea and Vomiting (N/V). ondansetron 2017-10 Yes 4mg Take 1 Univ ers (ZOFRAN) 4 2-28 tablet by ity of mg tablet 00:00: mouth [place] 00 every 8 Medical (eight) Branch hours as needed for Nausea and Vomiting (N/V). ondansetron 2017-10 Yes 4mg Take 1 Univ ers (ZOFRAN) 4 2-28 tablet by ity of mg tablet 00:00: mouth [place] 00 every 8 Medical (eight) Branch hours as needed for Nausea and Vomiting (N/V). ondansetron 2017-10 Yes 4mg Take 1 Univ ers (ZOFRAN) 4 2-28 tablet by ity of mg tablet 00:00: mouth [place] 00 every 8 Medical (eight) Branch hours as needed for Nausea and Vomiting (N/V). ondansetron 2017-10 Yes 4mg Take 1 Univ ers (ZOFRAN) 4 2-28 tablet by ity of mg tablet 00:00: mouth [place] 00 every 8 Medical (eight) Branch hours as needed for Nausea and Vomiting (N/V). acetaminoph 2017-10 Yes 1{tbl} Take 1 Un kelvin en-codeine 2-03 tablet by ity of (TYLENOL-CO 00:00: mouth [place] DEINE #3) 00 every 6 Medical 300-30 mg (six) Branch tablet hours as needed for Pain (scale 7-10). acetaminoph 2017-10 Yes 1{tbl} Take 1 Un kelvin en-codeine 2-03 tablet by ity of (TYLENOL-CO 00:00: mouth [place] DEINE #3) 00 every 6 Medical 300-30 mg (six) Branch tablet hours as needed for Pain (scale 7-10). acetaminoph 2017-10 Yes 1{tbl} Take 1 Un kelvin en-codeine 2-03 tablet by ity of (TYLENOL-CO 00:00: mouth [place] DEINE #3) 00 every 6 Medical 300-30 mg (six) Branch tablet hours as needed for Pain (scale 7-10). acetaminoph 2017-10 Yes 1{tbl} Take 1 Un kelvin en-codeine 2-03 tablet by ity of (TYLENOL-CO 00:00: mouth [place] DEINE #3) 00 every 6 Medical 300-30 mg (six) Branch tablet hours as needed for Pain (scale 7-10). acetaminoph 2017-10 Yes 1{tbl} Take 1 Un kelvin en-codeine 2-03 tablet by ity of (TYLENOL-CO 00:00: mouth [place] DEINE #3) 00 every 6 Medical 300-30 mg (six) Branch tablet hours as needed for Pain (scale 7-10). acetaminoph 2017-10 Yes 1{tbl} Take 1 Un kelvin en-codeine 2-03 tablet by ity of (TYLENOL-CO 00:00: mouth [place] DEINE #3) 00 every 6 Medical 300-30 mg (six) Branch tablet hours as needed for Pain (scale 7-10). acetaminoph 2017-10 Yes 1{tbl} Take 1 Un kelvin en-codeine 2-03 tablet by ity of (TYLENOL-CO 00:00: mouth [place] DEINE #3) 00 every 6 Medical 300-30 mg (six) Branch tablet hours as needed for Pain (scale 7-10). acetaminoph 2017-10 Yes 1{tbl} Take 1 Un kelvin en-codeine 2-03 tablet by ity of (TYLENOL-CO 00:00: mouth [place] DEINE #3) 00 every 6 Medical 300-30 mg (six) Branch tablet hours as needed for Pain (scale 7-10). acetaminoph 2017-10 Yes 1{tbl} Take 1 Un kelvin en-codeine 2-03 tablet by ity of (TYLENOL-CO 00:00: mouth [place] DEINE #3) 00 every 6 Medical 300-30 mg (six) Branch tablet hours as needed for Pain (scale 7-10). acetaminoph 2017-10 Yes 1{tbl} Take 1 Un kelvin en-codeine 2-03 tablet by ity of (TYLENOL-CO 00:00: mouth [place] DEINE #3) 00 every 6 Medical 300-30 mg (six) Branch tablet hours as needed for Pain (scale 7-10). acetaminoph 2017-10 Yes 1{tbl} Take 1 Un kelvin en-codeine 2-03 tablet by ity of (TYLENOL-CO 00:00: mouth [place] DEINE #3) 00 every 6 Medical 300-30 mg (six) Branch tablet hours as needed for Pain (scale 7-10). acetaminoph 2017-10 Yes 1{tbl} Take 1 Un kelvin en-codeine 2-03 tablet by ity of (TYLENOL-CO 00:00: mouth [place] DEINE #3) 00 every 6 Medical 300-30 mg (six) Branch tablet hours as needed for Pain (scale 7-10). acetaminoph 2017-10 Yes 1{tbl} Take 1 Un kelvin en-codeine 2-03 tablet by ity of (TYLENOL-CO 00:00: mouth [place] DEINE #3) 00 every 6 Medical 300-30 mg (six) Branch tablet hours as needed for Pain (scale 7-10). acetaminoph 2017-10 Yes 1{tbl} Take 1 Un kelvin en-codeine 2-03 tablet by ity of (TYLENOL-CO 00:00: mouth [place] DEINE #3) 00 every 6 Medical 300-30 mg (six) Branch tablet hours as needed for Pain (scale 7-10). acetaminoph 2017-10 Yes 1{tbl} Take 1 Un kelvin en-codeine 2-03 tablet by ity of (TYLENOL-CO 00:00: mouth [place] DEINE #3) 00 every 6 Medical 300-30 mg (six) Branch tablet hours as needed for Pain (scale 7-10). acetaminoph 2017-10 Yes 1{tbl} Take 1 Un kelvin en-codeine 2-03 tablet by ity of (TYLENOL-CO 00:00: mouth [place] DEINE #3) 00 every 6 Medical 300-30 mg (six) Branch tablet hours as needed for Pain (scale 7-10). acetaminoph 2017-10 Yes 1{tbl} Take 1 Un kelvin en-codeine 2-03 tablet by ity of (TYLENOL-CO 00:00: mouth [place] DEINE #3) 00 every 6 Medical 300-30 mg (six) Branch tablet hours as needed for Pain (scale 7-10). acetaminoph 2017-10 Yes 1{tbl} Take 1 Un kelvin en-codeine 2-03 tablet by ity of (TYLENOL-CO 00:00: mouth [place] DEINE #3) 00 every 6 Medical 300-30 mg (six) Branch tablet hours as needed for Pain (scale 7-10). acetaminoph 2017-10 Yes 1{tbl} Take 1 Un kelvin en-codeine 2-03 tablet by ity of (TYLENOL-CO 00:00: mouth [place] DEINE #3) 00 every 6 Medical 300-30 mg (six) Branch tablet hours as needed for Pain (scale 7-10). acetaminoph 2017-10 Yes 1{tbl} Take 1 Un kelvin en-codeine 2-03 tablet by ity of (TYLENOL-CO 00:00: mouth [place] DEINE #3) 00 every 6 Medical 300-30 mg (six) Branch tablet hours as needed for Pain (scale 7-10). acetamino 2017-10- No 1{tbl} Take 1 U nivers en-codeine 2-03 03-16 tablet by ity of (TYLENOL-CO 00:00: 00:[place] DEINE #3[place] 00 :00 every 6 Medical 300-30 mg (six) Branch tablet hours as needed for Pain (scale 7-10). acetamino 2017-10- No 1{tbl} Take 1 U nivers en-codeine 2-03 03-16 tablet by ity of (TYLENOL-CO 00:00: 00:[place] DEINE #3[place] 00 :00 every 6 Medical 300-30 mg (six) Branch tablet hours as needed for Pain (scale 7-10). acetamino 2017-10- No 1{tbl} Take 1 U nivers en-codeine 2-03 03-16 tablet by ity of (TYLENOL-CO 00:00: 00:[place] DEINE #3) 00 :00 every 6 Medical 300-30 mg (six) Branch tablet hours as needed for Pain (scale 7-10). famotidine Yes [id number] 40mg Take 1 U nivers 40 mg 7-11 tablet by ity of tablet 00:00: mouth [place] 00 daily. Medical Branch famotidine Yes [id number] 40mg Take 1 U nivers 40 mg 7-11 tablet by ity of tablet 00:00: mouth [place] 00 daily. Medical Branch famotidine 2018-0 Yes [id number] 40mg Take 1 U nivers 40 mg 7-11 tablet by ity of tablet 00:00: mouth [place] 00 daily. Medical Branch famotidine 2018-0 Yes [id number] 40mg Take 1 U nivers 40 mg 7-11 tablet by ity of tablet 00:00: mouth [place] 00 daily. Medical Branch famotidine 2017-0 Yes [id number] 40mg Take 1 U nivers 40 mg 7-11 tablet by ity of tablet 00:00: mouth [place] 00 daily. Medical Branch famotidine 2017-0 Yes [id number] 40mg Take 1 U nivers 40 mg 7-11 tablet by ity of tablet 00:00: mouth [place] 00 daily. Medical Branch famotidine 2017-0 Yes [id number] 40mg Take 1 U nivers 40 mg 7-11 tablet by ity of tablet 00:00: mouth [place] 00 daily. Medical Branch famotidine 2017-0 Yes [id number] 40mg Take 1 U nivers 40 mg 7-11 tablet by ity of tablet 00:00: mouth [place] 00 daily. Medical Branch famotidine 2017-0 Yes [id number] 40mg Take 1 U nivers 40 mg 7-11 tablet by ity of tablet 00:00: mouth [place] 00 daily. Medical Branch famotidine 2017-0 Yes [id number] 40mg Take 1 U nivers 40 mg 7-11 tablet by ity of tablet 00:00: mouth [place] 00 daily. Medical Branch famotidine 2018-0 Yes [id number] 40mg Take 1 U nivers 40 mg 7-11 tablet by ity of tablet 00:00: mouth [place] 00 daily. Medical Branch famotidine 2018-0 Yes [id number] 40mg Take 1 U nivers 40 mg 7-11 tablet by ity of tablet 00:00: mouth [place] 00 daily. [facility] Branch famotidine 2017-0 Yes [id number] 40mg Take 1 U nivers 40 mg 7-11 tablet by ity of tablet 00:00: mouth [place] 00 daily. [facility] Branch famotidine 2017-0 Yes [id number] 40mg Take 1 U nivers 40 mg 7-11 tablet by ity of tablet 00:00: mouth [place] 00 daily. Medical Branch famotidine 2018-0 Yes [id number] 40mg Take 1 U nivers 40 mg 7-11 tablet by ity of tablet 00:00: mouth [place] 00 daily. Medical Branch famotidine 2018-0 Yes [id number] 40mg Take 1 U nivers 40 mg 7-11 tablet by ity of tablet 00:00: mouth [place] 00 daily. Medical Branch famotidine 2017-0 Yes [id number] 40mg Take 1 U nivers 40 mg 7-11 tablet by ity of tablet 00:00: mouth [place] 00 daily. [facility] Branch famotidine 2017-0 Yes [id number] 40mg Take 1 U nivers 40 mg 7-11 tablet by ity of tablet 00:00: mouth [place] 00 daily. Medical Branch famotidine 2017-0 Yes [id number] 40mg Take 1 U nivers 40 mg 7-11 tablet by ity of tablet 00:00: mouth [place] 00 daily. Medical Branch famotidine 2017-0 Yes [id number] 40mg Take 1 U nivers 40 mg 7-11 tablet by ity of tablet 00:00: mouth [place] 00 daily. Medical Branch famotidine 2017-0 Yes [id number] 40mg Take 1 U nivers 40 mg 7-11 tablet by ity of tablet 00:00: mouth [place] 00 daily. Medical Branch famotidine 2017-0 Yes [id number] 40mg Take 1 U nivers 40 mg 7-11 tablet by ity of tablet 00:00: mouth [place] 00 daily. Medical Branch famotidine 2018-0 Yes [id number] 40mg Take 1 U nivers 40 mg 7-11 tablet by ity of tablet 00:00: mouth [place] 00 daily. Medical Branch famotidine 2018-0 Yes [id number] 40mg Take 1 U nivers 40 mg 7-11 tablet by ity of tablet 00:00: mouth [place] 00 daily. [facility] Branch famotidine 2018-0 Yes [id number] 40mg Take 1 U nivers 40 mg 7-11 tablet by ity of tablet 00:00: mouth [place] 00 daily. [facility] Branch famotidine 2017-0 Yes [id number] 40mg Take 1 U nivers 40 mg 7-11 tablet by ity of tablet 00:00: mouth [place] 00 daily. [facility] Branch famotidine 2018-0 Yes [id number] 40mg Take 1 U nivers 40 mg 7-11 tablet by ity of tablet 00:00: mouth [place] 00 daily. Medical Branch famotidine 2018-0 Yes [id number] 40mg Take 1 U nivers 40 mg 7-11 tablet by ity of tablet 00:00: mouth [place] 00 daily. Medical Branch famotidine 2018-0 Yes [id number] 40mg Take 1 U nivers 40 mg 7-11 tablet by ity of tablet 00:00: mouth [place] 00 daily. Medical Branch famotidine 2017-0 Yes [id number] 40mg Take 1 U nivers 40 mg 7-11 tablet by ity of tablet 00:00: mouth [place] 00 daily. Medical Branch famotidine 2017-0 Yes [id number] 40mg Take 1 U nivers 40 mg 7-11 tablet by ity of tablet 00:00: mouth [place] 00 daily. Medical Branch famotidine 2017-0 Yes [id number] 40mg Take 1 U nivers 40 mg 7-11 tablet by ity of tablet 00:00: mouth [place] 00 daily. Medical Branch famotidine 2017-0 Yes [id number] 40mg Take 1 U nivers 40 mg 7-11 tablet by ity of tablet 00:00: mouth [place] 00 daily. [facility] Immunizations Ordered Filled Immunization Date Status Comments [facility] e Immunization Name Name Influenza High Dose 2020-07-03 Completed [facility] [place] 00:00:00 [facility] Influenza High Dose 2020-07-03 Completed [facility] [place] 00:00:00 [facility] Influenza High Dose 2020-07-03 Completed [facility] [place] 00:00:00 [facility] Influenza High Dose 2020-07-03 Completed [facility] [place] 00:00:00 [facility] Influenza High Dose 2020-07-03 Completed [facility] [place] 00:00:00 [facility] Influenza High Dose 2020-07-03 Completed [facility] [place] 00:00:00 [facility] Influenza High Dose 2020-07-03 Completed [facility] [place] 00:00:00 [facility] Influenza High Dose 2020-07-03 Completed [facility] [place] 00:00:00 [facility] Influenza High Dose 2020-07-03 Completed [facility] [place] 00:00:00 [facility] Influenza High Dose 2020-07-03 Completed [facility] [place] 00:00:00 [facility] Influenza High Dose 2020-07-03 Completed [facility] [place] 00:00:00 [facility] Influenza High Dose 2020-07-03 Completed [facility] [place] 00:00:00 [facility] Influenza High Dose 2020-07-03 Completed [facility] [place] 00:00:00 [facility] Influenza High Dose 2020-07-03 Completed [facility] [place] 00:00:00 [facility] Influenza High Dose 2020-07-03 Completed [facility] [place] 00:00:00 [facility] Influenza High Dose 2020-07-03 Completed [facility] of [place] 00:00:00 [facility] Influenza High Dose 2020-07-03 Completed [facility] of [facility] 00:00:00 [facility] Influenza High Dose 2020-07-03 Completed [facility] of [place] 00:00:00 [facility] Influenza High Dose 2020-07-03 Completed [facility] of [facility] 00:00:00 [facility] Influenza High Dose 2020-07-03 Completed [facility] of [facility] 00:00:00 [facility] Influenza High Dose 2020-07-03 Completed [facility] of [facility] 00:00:00 [facility] Influenza High Dose 2020-07-03 Completed [facility] of [facility] 00:00:00 [facility] Influenza High Dose 2020-07-03 Completed [facility] of [facility] 00:00:00 [facility] Influenza High Dose 2020-07-03 Completed [facility] of [facility] 00:00:00 [facility] Influenza High Dose 2020-07-03 Completed [facility] of [facility] 00:00:00 [facility] Influenza High Dose 2020-07-03 Completed [facility] of [facility] 00:00:00 [facility] Influenza High Dose 2020-07-03 Completed [facility] 00:00:00 [facility] Influenza High Dose 2020-07-03 Completed [facility] 00:00:00 [facility] Influenza High Dose 2020-07-03 Completed [facility] of [facility] 00:00:00 [facility] Influenza High Dose 2020-07-03 Completed [facility] 00:00:00 [facility] Influenza High Dose 2020-07-03 Completed [facility] of [facility] 00:00:00 [facility] Influenza High Dose 2020-07-03 Completed [facility] 00:00:00 [facility] Influenza High Dose 2020-07-03 Completed [facility] 00:00:00 [facility] Vital Signs Vital Name Observation Time Observation Value Comments Source Systolic blood 2023-01-05 14:04:00 183 mm[Hg] Univer [facility]ity of pressure [facility] Diastolic blood 2023-01-05 14:04:00 76 mm[Hg] Unive rsity of pressure [facility] Branch Heart rate 2023-01-05 14:03:00 61 /min [facility] Body temperature 2023-01-05 14:03:00 36.67 Denice [facility] [address] Branch Body height 2023-01-05 14:03:00 165.1 cm [facility] [place] [facility] Body weight 2023-01-05 14:03:00 54.432 kg [facility] BMI 2023-01-05 14:03:00 19.97 kg/m2 [facility] [place] [facility] Oxygen saturation in 2023-01-05 14:03:00 99 /min [facility] of Arterial blood by [facility] Pulse oximetry Branch Systolic blood 2022-12-16 18:07:00 179 mm[Hg] Univer sity of pressure [facility] Diastolic blood 2022-12-16 18:07:00 82 mm[Hg] Unive rsity of pressure [facility] Heart rate 2022-12-16 18:07:00 64 /min [facility] [place] [facility] Body weight 2022-12-16 18:07:00 56.246 kg [facility] [place] [facility] BMI 2022-12-16 18:07:00 20.63 kg/m2 [facility] [place] [facility] Oxygen saturation in 2022-12-16 18:07:00 97 /min [facility] of Arterial blood by [facility] Pulse oximetry Branch Systolic blood 2022-11-25 18:19:00 157 mm[Hg] Univer sity of pressure [facility] Diastolic blood 2022-11-25 18:19:00 73 mm[Hg] Unive rsity of pressure [facility] BMI 2022-11-25 18:18:00 21.25 kg/m2 [facility] Oxygen saturation in 2022-11-25 18:18:00 98 /min [facility] Arterial blood by [place] [employer] [facility] Pulse oximetry Branch Heart rate 2022-11-25 18:18:00 61 /min [facility] [place] [facility] Body height 2022-11-25 18:18:00 165.1 cm [facility] Body weight 2022-11-25 18:18:00 57.924 kg [facility] Systolic blood 2022-10-25 20:12:00 166 mm[Hg] Univer sity of pressure [facility] Diastolic blood 2022-10-25 20:12:00 71 mm[Hg] Unive rsity of pressure [facility] Heart rate 2022-10-25 19:55:00 63 /min [facility] [place] [facility] Body height 2022-10-25 19:55:00 165.1 cm [facility] Body weight 2022-10-25 19:55:00 58.469 kg [facility] [place] [facility] BMI 2022-10-25 19:55:00 21.45 kg/m2 [facility] [place] [facility] Oxygen saturation in 2022-10-25 19:55:00 97 /min [facility] Arterial blood by [place] [employer] [facility] Pulse oximetry Branch Systolic blood 2022-09-22 19:13:00 188 mm[Hg] Univer sity of pressure [facility] Diastolic blood 2022-09-22 19:13:00 79 mm[Hg] Unive rsity of pressure [facility] Heart rate 2022-09-22 19:12:00 71 /min [facility] Body height 2022-09-22 19:12:00 165.1 cm [facility] Body weight 2022-09-22 19:12:00 59.33 kg [facility] BMI 2022-09-22 19:12:00 21.77 kg/m2 [facility] Oxygen saturation in 2022-09-22 19:12:00 98 /min [facility] Arterial blood by [employer] [facility] Pulse oximetry Branch Systolic blood 2022-06-04 20:17:00 156 mm[Hg] Univer sity of pressure [facility] Diastolic blood 2022-06-04 20:17:00 81 mm[Hg] Unive rsity of pressure [facility] Heart rate 2022-06-04 20:09:00 69 /min [facility] Body weight 2022-06-04 20:09:00 60.51 kg [facility] BMI 2022-06-04 20:09:00 22.20 kg/m2 [facility] Oxygen saturation in 2022-06-04 20:09:00 95 /min [facility] Arterial blood by [facility] Pulse oximetry Branch Procedures Procedure Date / Time Performing Clinician Source Performed EXTERNAL PROVIDER RECORDS 2023-01-18 05:01:00 Doctor Freeman, [facility] Name [facility] EXTERNAL PROVIDER RECORDS 2023-01-05 05:01:00 Doctor Millard [facility] CONSENT/REFUSAL FOR 2022-11-25 17:42:39 Doctor Millard [facility] DIAGNOSIS AND TREATMENT [facility] INSURANCE CORRESPONDENCE 2022-08-09 06:01:00 Doctor Millard [facility] MEDICAL RELEASE/CLEARANCE 2022-06-18 05:01:00 Doctor Millard [facility] FORMS Home [facility] POCT HEMOGLOBIN A1C TEST 2022-06-04 20:20:00 Jamie Roger [facility] Encounters Start End Encounter Admission Attending Care Care Encounter Source Date/Time Date/Time Type Type Clinicians Facility Department ID 2021-08-02 Outpatient [facility] [id number] Univers 04:31:18 AURA Marie ity [facility] 2021-08-01 Emergency [facility] [id number] Univers 18:59:03 ity [facility] 2023-01-18 2023-01-18 Orders Doctor BRITT 1.2.840.114 [id number] Univers 00:00:00 00:00:00 Only UnassignedGILLIAN 350.1.13.10 ity [facility] 4.2.7.2.686 Girma as [phone] [place] [address] [address] 2023-01-05 2023-01-05 Office Nba [facility] 1.2.840.114 [id number] Univers 09:00:00 09:30:00 Visit Rey HEALTH 350.1.13.10 it y of [place] 4.2.7.2.686 Girma as CHESTER?BLEA [phone] [address] OFFICE [facility] 2023-01-05 2023-01-05 Outpatient R NBA [facility] [id number] Univers 09:00:00 09:00:00 REY ity of [facility] 2023-01-05 2023-01-05 Orders Doctor LORENZA 1.2.840.114 [id number] Univers 00:00:00 00:00:00 Only Unassigned, GILLIAN 350.1.13.10 ity of Home [facility] 4.2.7.2.686 Girma as [phone] [address] 2023-01-05 2023-01-05 [facility]phone [facility] 1.2.594.507 [id number] Univers 00:00:00 00:00:00 [place] [facility]ALTH 350.1.13.10 it y of [place] 4.2.7.2.686 Girma as CHESTER?BLEA [phone] [address] OFFICE [facility] 2023-01-03 2023-01-03 Telephone [facility] 1.2.643.182 [id number] Univers 00:00:00 00:00:00 [place] HEALTH 350.1.13.10 it y of [place] 4.2.7.2.686 Girma as CEHSTER?BLEA [phone] [address] OFFICE [facility] 2022-12-31 2022-12-31 Telephone [facility] 1.2.972.213 [id number] Univers 00:00:00 00:00:00 [place] HEALTH 350.1.13.10 it y of [place] 4.2.7.2.686 Girma as CHESTER?BLEA [phone] [address] OFFICE [facility] 2022-12-29 2022-12-29 Telephone [facility] 1.2.282.042 [id number] Univers 00:00:00 00:00:00 Rey [facility]ALTH 350.1.13.10 it y of [place] 4.2.7.2.686 Girma as CHESTER?BLEA [phone] [address] MEDICAL OFFICE [facility] 2022-12-24 2022-12-24 Outpatient R AVIS [facility] [id number] Univers 08:20:00 23:59:00 LEEROYBEATA sagastume [facility] 2022-12-16 2022-12-16 Outpatient R ARANGO, [facility] [id number] Univers 13:30:00 14:38:40 REY sagastume [facility] 2022-12-16 2022-12-16 Office [facility] 1.2.840.114 [id number] Univers 13:30:00 14:38:40 Visit [facility] 350.1.13.10 it y of [place] 4.2.7.2.686 Girma as CHESTER?BLEA [phone] [address] OFFICE [facility] 2022-12-16 2022-12-16 Refill [facility] 1.2.840.114 [id number] Univers 00:00:00 00:00:00 [place] HEALTH 350.1.13.10 it y of [place] 4.2.7.2.686 Girma as CHESTER?BLEA [phone] [address] OFFICE [facility] 2022-11-25 2022-11-25 Office [facility] 1.2.840.114 [id number] Univers 12:15:00 12:30:00 Visit [facility] 350.1.13.10 it y of [place] 4.2.7.2.686 Girma as CHESTER?BLEA [phone] [address] MEDICAL OFFICE [facility] 2022-11-25 2022-11-25 Outpatient R NBA [facility] [id number] Univers 12:15:00 12:15:00 REY sagastume [facility] 2022-11-25 2022-11-25 Orders Doctor BRITT 1.2.840.114 [id number] Univers 00:00:00 00:00:00 Only Unassigned, GLILIAN 350.1.13.10 ity of Home [facility] 4.2.7.2.686 Girma as [phone] [address] 2022-10-25 2022-10-25 Office [facility] 1.2.840.114 [id number] Univers 14:15:00 14:30:00 Visit [facility] 350.1.13.10 it y of [place] 4.2.7.2.686 Girma as CHESTER?BLEA [phone] [address] MEDICAL OFFICE [facility] 2022-10-25 2022-10-25 [facility] [id number] Univers 14:15:00 14:15:00 REY sagastume [facility] 2022-10-25 2022-10-25 Telephone [facility] 1.2.704.362 [id number] Univers 00:00:00 00:00:00 Rey [facility] 350.1.13.10 it y of [place] 4.2.7.2.686 Girma as CHESTER?BLEA [phone] [address] OFFICE [facility] 2022-09-29 2022-09-29 [facility]ill [facility] 1.2.840.114 [id number] Univers 00:00:00 00:00:00 Rey [facility] 350.1.13.10 it y of [place] 4.2.7.2.686 Girma as CHESTER?BLEA [phone] [address] OFFICE [facility] 2022-09-22 2022-09-22 Outpatient R NBA [facility] [id number] Univers 14:12:09 23:59:00 REY sagastume [facility] 2022-09-22 2022-09-22 [facility] 1.2.840.1 14 [id number] Univers 13:45:00 14:04:05 Visit Rey Arango [facility] 350.1.13.10 ity of [place] 4.2.7.2.686 Girma as CHESTER?BLEA [phone] [facility] [address] [facility] OFFICE [facility] 2022-09-22 2022-09-22 Office [facility] 1.2.840.114 [id number] Univers 13:15:00 13:30:00 Visit [facility] 350.1.13.10 it y of [place] 4.2.7.2.686 Girma as CHESTER?BLEA [phone] Sc emma MILLER [address] MEDICAL OFFICE [facility] 2022-08-20 2022-08-20 [facility] 1.2.840.114 [id number] Univers 00:00:00 00:00:00 Rey HEALTH 350.1.13.10 it y of [place] 4.2.7.2.686 Girma as CHESTER?BLEA [phone] [facility] [address] MEDICAL OFFICE [facility] 2022-08-09 2022-08-09 Orders Doctor LORENZA 1.2.840.114 [id number] Univers 00:00:00 00:00:00 Only Unassigned, GILLIAN 350.1.13.10 ity of Home [facility] 4.2.7.2.686 Girma as [phone] [address] 2022-07-06 2022-07-06 [facility] 1.2.840.114 [id number] Univers 00:00:00 00:00:00 Rey HEALTH 350.1.13.10 it y of [place] 4.2.7.2.686 Girma as CHESTER?BLEA [phone] [facility] [address] OFFICE [facility] 2022-06-24 2022-06-24 Telephone [facility] 1.2.840.114 [id number] Univers 00:00:00 00:00:00 Jamie H HEALTH 350.1.13.10 it y of [place] 4.2.7.2.686 Girma as CHESTER?BLEA [phone] [facility] MIRYAM [address] MEDICAL OFFICE [facility] 2022-06-21 2022-06-21 Telephone [facility] 1.2.840.114 [id number] Univers 00:00:00 00:00:00 Jamie H HEALTH 350.1.13.10 it y of [place] 4.2.7.2.686 Girma as CHESTER?BLEA [phone] [facility] [address] MEDICAL OFFICE [facility] 2022-06-18 2022-06-18 Orders Doctor BRITT 1.2.840.114 [id number] Univers 00:00:00 00:00:00 Only Unassigned, GILLIAN 350.1.13.10 ity of Home [facility] 4.2.7.2.686 Girma as [phone] [address] 2022-06-15 2022-06-15 Telephone [facility] 1.2.840.114 [id number] Univers 00:00:00 00:00:00 Jamie [facility] 350.1.13.10 it y of [facility] 4.2.7.2.686 Girma as CHESTER?BLEA [phone] [address] MEDICAL OFFICE [facility] 2022-06-04 2022-06-04 Office [facility] 1.2.051.573 [id number] Univers 15:30:00 15:58:45 Visit Jamie [facility] 350..13.10 it y of [place] 4.2.7.2.686 Girma as CHESTER?BLEA [phone] [address] OFFICE [facility] 2022-06-04 2022-06-04 [facility] [id number] Univers 15:30:00 15:58:45 [facility] 2022-06-04 2022-06-04 Outpatient [facility] [id number] Univers 15:30:00 15:30:00 [facility] 2022-05-14 2022-05-14 Refmargo [facility] 1.2.840.114 [id number] Univers 00:00:00 00:00:00 [facility] 350.1.13.10 it y of [place] 4.2.7.2.686 Girma as CHESTRE?BLEA [id number] [address] OFFICE [facility] 2022-03-02 2022-03-02 Refmargo [facility] 1.2.840.114 [id number] Univers 00:00:00 00:00:00 Rey HEALTH 350.1.13.10 it y of [place] 4.2.7.2.686 Girma as CHESTER?BLEA [phone] [address] MEDICAL OFFICE [facility] 2022-02-25 2022-02-25 Office [facility] 1.2.840.114 [id number] Univers 12:30:00 12:45:00 Visit Rey HEALTH 350.1.13.10 it y of [place] 4.2.7.2.686 Girma as CHESTER?BLEA [phone] [facility] [address] [facility] OFFICE [facility] 2022-02-25 2022-02-25 [facility] [id number] Univers 12:30:00 12:30:00 REY [facility] 2022-02-17 2022-02-17 Refmargo [facility] 1.2.840.114 [id number] Univers 00:00:00 00:00:00 Rey HEALTH 350.1.13.10 it y of [place] 4.2.7.2.686 Girma as CHESTER?BLEA [phone] [address] OFFICE [facility] 2022-01-26 2022-01-26 Outpatient R GERALDO [facility] [id number] Univers 14:30:00 14:56:48 JEANETTE negrita [facility] 2022-01-26 2022-01-26 Office [facility] 1.2.840.114 [id number] Univers 14:30:00 14:56:48 Visit [facility] 350.1.13.10 it y of [place] 4.2.7.2.686 Girma as CHESTER?BLEA [phone] [facility] [address] [facility] OFFICE [facility] 2022-01-15 2022-01-15 Francisco [facility] 1.2.840.114 [id number] Univers 00:00:00 00:00:00 [facility] 350.1.13.10 it y of [place] 4.2.7.2.686 Girma as PROFESSIO [phone] [address] OFFICE [facility] ONE 2022-01-15 2022-01-15 Francisco [facility] 1.2.840.114 [id number] Univers 00:00:00 00:00:00 [facility] 350.1.13.10 it y of [place] 4.2.7.2.686 Girma as PROFESSIO [phone] [address] OFFICE [facility] 2022-01-15 2022-01-15 Francisco [facility] 1.2.840.114 [id number] Univers 00:00:00 00:00:00 [facility] 350.1.13.10 it y of [facility] 4.2.7.2.686 Girma as PROFESSIO [phone] Sc emma LACKEY [address] [place] [address] 2022-01-07 2022-01-07 Refmargo [facility] 1.2.840.114 [id number] Univers 00:00:00 00:00:00 [facility] 350.1.13.10 it y of [place] 4.2.7.2.686 Girma as CHESTER?BLEA [phone] [facility] PAUL [address] [facility] OFFICE [facility] 2021-11-30 2021-11-30 Outpatient R NBA [facility] [id number] Univers 13:00:00 13:00:00 REY sagastume [facility] 2021-10-16 2021-10-16 Outpatient R KANA [facility] [id number] Univers 13:30:00 14:32:38 JAMIE sagastume [facility] 2021-10-16 2021-10-16 Office Jeanette Chow [facility] 1.2.840.114 [id number] Univers 13:30:00 14:32:38 Visit Jamie Roger [facility] 350.1.13.10 ity of [place] 4.2.7.2.686 Girma as CHESTER?BLEA [phone] [facility] PAUL [address] [facility] OFFICE [facility] 2021-10-16 2021-10-16 Orders Doctor LORENZA 1.2.840.114 [id number] Univers 00:00:00 00:00:00 Only Unassigned, GILLIAN 350.1.13.10 ity of Home [facility] 4.2.7.2.686 Girma as [phone] [address] 2021-10-12 2021-10-12 Refmargo [facility] 1.2.840.114 [id number] Univers 00:00:00 00:00:00 Rey [facility] 350.1.13.10 it y of [facility] 4.2.7.2.686 Girma as PROFESSIO [phone] Sc dical NAL [address] OFFICE [facility] ONE 2021-10-12 2021-10-12 Kyliemargo NIK Roger 1.2.840.114 [id number] Univers 00:00:00 00:00:00 Dora DIXON 350.1.13.10 it y of [facility] 4.2.7.2.686 Girma as [phone] [address] 2021-09-08 2021-09-08 Francisco [facility] 1.2.840.114 [id number] Univers 00:00:00 00:00:00 [facility] 350.1.13.10 it y of [place] 4.2.7.2.686 Girma as PROFESSIO [phone] Sc dicdc NAL [address] [place] [address] OFFICE [facility] ONE 2021-08-07 2021-08-07 Francisco [facility] 1.2.840.114 [id number] Univers 00:00:00 00:00:00 [facility] 350.1.13.10 it y of [place] 4.2.7.2.686 Girma as PROFESSIO [phone] Sc dical NAL [address] [place] [address] OFFICE [facility] ONE 2021-07-04 2021-07-04 Francisco [facility] 1.2.840.114 [id number] Univers 00:00:00 00:00:00 [facility] 350.1.13.10 it y of [place] 4.2.7.2.686 Girma as Professio [phone] Sc dical nal [address] Office Building One 2021-07-01 2021-07-01 Francisco [facility] 1.2.840.114 [id number] Univers 00:00:00 00:00:00 [facility] 350.1.13.10 it y of [place] 4.2.7.2.686 Girma as Professio [phone] Sc dical nal [address] [place] [address] Office Building One 2021-04-30 2021-04-30 Ariana [facility] [id number] Univers 14:15:00 14:15:00 [facility] 2021-04-30 2021-04-30 Office Nba [facility] 1.2.840.114 [id number] Univers 13:52:17 14:07:17 Visit [facility] 350.1.13.10 it y of [place] 4.2.7.2.686 Girma as Professio [phone] [facility] nal [address] [place] [address] Office Building One 2021-04-28 2021-04-28 Refmargo [facility] 1.2.840.114 [id number] Univers 00:00:00 00:00:00 [facility] 350.1.13.10 it y of [place] 4.2.7.2.686 Girma as Professio [phone] [facility] [address] [place] [address] Office Building One 2021-03-31 2021-03-31 Refmargo [facility] 1.2.840.114 [id number] Univers 00:00:00 00:00:00 [facility] 350.1.13.10 it y of [place] 4.2.7.2.686 Girma as Professio [phone] Sc dical nal [address] [place] [address] Office Building One 2021-03-16 2021-03-16 Refill [facility] 1.2.840.114 [id number] Univers 00:00:00 00:00:00 [facility] 350.1.13.10 it y of [place] 4.2.7.2.686 Girma as Professio [phone] [facility] nal [address] [place] [address] Office Building One 2021-02-23 2021-02-23 Outpatient R NBA [facility] [id number] Univers 13:15:00 13:15:00 REY [facility] 2021-02-11 2021-02-11 Refmargo [facility] 1.2.840.114 [id number] Univers 00:00:00 00:00:00 [facility] 350.1.13.10 it y of [place] 4.2.7.2.686 Girma as Professio [phone] [facility] nal [address] [place] [address] Office Building One 2021-01-29 2021-01-29 Jermaine Arango [facility] 1.2.901.731 [id number] Univers 00:00:00 00:00:00 [facility] 350.1.13.10 it y of [place] 4.2.7.2.686 Girma as Professio [phone] [address] Office [facility] One 2021-01-23 2021-01-23 Orders Doctor LORENZA 1.2.840.114 [id number] Univers 00:00:00 00:00:00 Only Unassigned, GILLIAN 350.1.13.10 ity of Home HOSPITAL 4.2.7.2.686 Girma as [phone] [address] 2021-01-21 2021-01-21 Refill [facility] 1.2.840.114 [id number] Univers 00:00:00 00:00:00 [facility] 350.1.13.10 it y of [place] 4.2.7.2.686 Girma as Professio [phone] [address] One 2021-01-21 2021-01-21 Jermaine [facility] 1.2.144.476 [id number] Univers 00:00:00 00:00:00 [facility] 350.1.13.10 it y of [place] 4.2.7.2.686 Girma as Professio [phone] [address] One 2021-01-21 2021-01-21 Orders Doctor BRITT 1.2.840.114 [id number] Univers 00:00:00 00:00:00 Only Unassigned, GILLIAN 350.1.13.10 ity of Home HOSPITAL 4.2.7.2.686 Girma as [phone] [address] 2021-01-19 2021-01-19 Outpatient R PERLA VILLARREAL [facility] [id number] Univers 15:00:00 15:00:00 PERLA VILLARREAL of [facility] 2021-01-15 2021-01-15 Orders Doctor LORENZA 1.2.840.114 [id number] Univers 00:00:00 00:00:00 Only Unassigned, GILLIAN 350.1.13.10 ity of Home HOSPITAL 4.2.7.2.686 Girma as [phone] [facility] [address] 2021-01-13 2021-01-13 Outpatient R CHERELLEPERLA Marie [facility] [id number] Univers 13:40:00 13:40:00 CHERELLE, PERLA ity of [facility] 2021-01-06 2021-01-06 Orders Doctor BRITT 1.2.840.114 [id number] Univers 00:00:00 00:00:00 Only Unassigned, GILLIAN 350.1.13.10 ity of Home HOSPITAL 4.2.7.2.686 Girma as [phone] [facility] [address] 2020-12-26 2020-12-26 Orders Doctor BRITT 1.2.840.114 [id number] Univers 00:00:00 00:00:00 Only Unassigned, GILLIAN 350.1.13.10 ity of Home [facility] 4.2.7.2.686 Girma as [phone] [facility] [address] 2020-12-17 2020-12-17 [facility] 1.2.840.114 [id number] Univers 08:10:00 10:43:00 Encounter Aura marie 350.1.13.10 ity of [place] [phone] [facility] [address] 2020-12-16 2020-12-16 Laboratory Only, Adc Test [facility] 1.2.840. 114 [id number] Univers 13:23:54 13:38:54 Only Aura Mark 350.1.1 3.10 ity of [place].2.7.2.686 [place] [phone] [facility] [address] 2020-12-16 2020-12-16 [facility] [id number] Univers 13:00:00 13:00:00 AURA Marie o f [facility] 2020-12-16 2020-12-16 Orders Doctor BRITT 1.2.840.114 [id number] Univers 00:00:00 00:00:00 Only Unassigned, GILLIAN 350.1.13.10 ity of Home HOSPITAL 4.2.7.2.686 Girma as [phone] [facility] [address] 2020-12-16 2020-12-16 Refill Nba [facility] 1.2.840.114 [id number] Univers 00:00:00 00:00:00 [facility] 350.1.13.10 it y of [place] 4.2.7.2.686 Girma as Professio [phone] Sc dical nal [address] Office Building One 2020-12-10 2020-12-10 Patient Dwight [facility] 1.2.840.114 [id number] Univers 00:00:00 00:00:00 Outreach Damien PRIMARY 350.1.13.10 i ty of [facility] 4.2.7.2.[place] [phone] Sc dical [address] 2020-12-03 2020-12-03 Orders Doctor LORENZA 1.2.840.114 [id number] Univers 00:00:00 00:00:00 Only Unassigned, GILLIAN 350.1.13.10 ity of Home HOSPITAL 4.2.7.2.686 Girma as [phone] [address] 2020-12-02 2020-12-02 Telephone Arango [facility] 1.2.060.017 [id number] Univers 00:00:00 00:00:00 [facility] 350.1.13.10 it y of [place] 4.2.7.2.686 Girma as Professio [phone] Sc dic[address] Office [facility] One 2020-11-27 2020-11-27 Outpatient R NBA [facility] [id number] Univers 12:00:00 12:00:00 REY ity of [facility] 2020-11-27 2020-11-27 Outpatient [facility] [id number] Univers 00:00:00 00:00:00 ity of [facility] 2020-11-27 2020-11-27 Patient Arango [facility] 1.2.840.114 [id number] Univers 00:00:00 00:00:00 Secure Msg [facility] 350.1.13.10 ity of [place] 4.2.7.2.686 Girma as Professio [phone] [address] Office Building One 2020-11-27 2020-11-27 Orders Doctor LORENZA 1.2.840.114 [id number] Univers 00:00:00 00:00:00 Only Unassigned, GILLIAN 350.1.13.10 ity of Home HOSPITAL 4.2.7.2.686 Girma as [phone] [address] 2020-11-26 2020-11-26 Telephone [facility] 1.2.673.714 [id number] Univers 00:00:00 00:00:00 [facility] 350.1.13.10 it y of [place] 4.2.7.2.686 Girma as Professio [phone] [address] Office Building One 2020-11-24 2020-11-24 Telephone [facility] 1.2.157.465 [id number] Univers 00:00:00 00:00:00 [facility] 350.1.13.10 it y of [place] 4.2.7.2.686 Girma as Professio [phone] [address] Office Building One 2020-11-23 2020-11-23 Orders Doctor LORENZA 1.2.840.114 [id number] Univers 00:00:00 00:00:00 Only Unassigned, GILLIAN 350.1.13.10 ity of Home HOSPITAL 4.2.7.2.686 Girma as [phone] [address] 2020-11-21 2020-11-21 Office [facility] 1.2.840.114 [id number] Univers 11:56:32 12:39:07 Visit [facility] 350.1.13.10 it y of [place] 4.2.7.2.686 Girma as Professio [phone] [address] Office Building One 2020-11-21 2020-11-21 Outpatient R NBA [facility] [id number] Univers 12:30:00 12:30:00 REY ity of [facility] 2020-11-21 2020-11-21 Telephone [facility] 1.2.549.994 [id number] Univers 00:00:00 00:00:00 [facility] 350.1.13.10 it y of [place] 4.2.7.2.686 Girma as Professio [phone] [facility] [address] Office [facility] One 2020-11-21 2020-11-21 Orders Doctor LORENZA 1.2.840.114 [id number] Univers 00:00:00 00:00:00 Only Unassigned, GILLIAN [id number] [facility] [id number] [place] as [phone] [address] 2020-11-20 2020-11-20 Outpatient Canelo ARANGO [facility] [id number] Univers 14:45:00 14:45:00 [facility] 2020-11-17 2020-11-17 [facility] [id number] Univers 14:00:00 14:00:00 [facility] 2020-11-13 2020-11-13 Outpatient Canelo ARANGO [facility] [id number] Univers 12:00:00 12:00:00 [facility] 2020-10-30 2020-10-30 Office [facility] 1.2.840.114 [id number] Univers 12:32:25 12:47:25 Visit [facility] [id number] it y of [place] [id number] [place] as Professio [phone] [address] One 2020-10-30 2020-10-30 Outpatient Canelo ARANGO [facility] [id number] Univers 12:30:00 12:30:00 [facility] 2020-10-30 2020-10-30 Letter [facility] 1.2.840.114 [id number] Univers 00:00:00 00:00:00 (Out) [facility] [id number] it y of [place] [id number] [place] Professio [phone] Me dical nal [address] One 2020-10-27 2020-10-27 Transition Letha Oden 1.2.840.114 [id number] Univers 00:00:00 00:00:00 of Wily Hussein [id number] [id number] [phone] [facility] [address] 2020-10-24 2020-10-25 Emergency Aidee Lees [facility] 1.2.840. 114 [id number] Univers 16:23:00 16:12:00 Jose Everett [id number] it[id number] [phone] [facility] [address] 2020-10-24 2020-10-24 Telephone [facility] [id number] Univers 00:00:00 00:00:00 [facility] [id number] it y of [place] [id number] [place] Professio [phone] [facility] nal [address] 2020-10-23 2020-10-23 [facility] 1.2.840.114 [id number] Univers 13:17:01 23:59:00 Encounter Rey Beard [id number] ity [id number] [phone] [facility] [address] 2020-10-23 2020-10-23 Outpatient R NBA [facility] [id number] Univers 00:00:00 00:00:00 REY sagastume [facility] 2020-10-22 2020-10-22 [facility]phone [facility] [id number] Univers 00:00:00 00:00:00 [facility] [id number] it y of [place] [id number] [place] Professio [phone] [facility] [address] 2020-10-21 2020-10-21 [facility] 1.2.840.114 [id number] Univers 16:00:05 23:59:00 Encounter Rey Beard [id number] ity of [place] [id number] [place] [facility] [phone] [facility] [address] 2020-10-21 2020-10-21 Outpatient R NBA [facility] [id number] Univers 00:00:00 00:00:00 REY sagastume [facility] 2020-10-21 2020-10-21 Telephone [facility] [id number] Univers 00:00:00 00:00:00 [facility] [id number] it y of [place] [id number] [place] as Professio [phone] [address] Office [facility] One 2020-10-19 2020-10-19 Nurse Guru BRITT 1.2.840.114 [id number] Univers 00:00:00 00:00:00 Triage dHeaven [id number] ity of [facility] 4.2.7.2.686 [place] as [phone] [facility] [address] 2020-10-17 2020-10-17 Security Professional Lab, [facility] I [facility] 1.2. 840.114 [id number] Univers 11:23:19 11:43:19 Visit Natali Evelynsumit Giordano [id number] ity of [place] [id number] [place] as Professio [phone] [address] One 2020-10-17 2020-10-17 Outpatient R NATALI [facility] [id number] Univers 11:40:00 11:40:00 EVELYN sagastume [facility] 2020-10-17 2020-10-17 Telephone [facility] [id number] Univers 00:00:00 00:00:00 Rey Giordano [id number] it y of [place] [id number] [place] as Professio [phone] [address] Office [facility] 2020-10-172020-10-17 Telephone [facility] [id number] Univers 00:00:00 00:00:00 Evelyn [facility] [id number] it y of [place] [id number] [place] as Professio [phone] [address] Office [facility] 2020-10-16 2020-10-16 Office [facility] 1.2.840.114 [id number] Univers 14:36:44 15:13:20 Visit [facility] [id number] it y of [place] 4.2.7.2.686 [place] Professio [phone] [address] Office [facility] 2020-10-16 2020-10-16 [facility]patient [facility] [id number] Univers 14:45:00 14:45:00 REY sagastume [facility] 2020-09-17 2020-09-17 [facility]mer[facility] 1.2.840.114 [id number] Univers 00:00:00 00:00:00 [facility] [id number] it y of [place] 4.2.7.2.686 [place] as Professio [phone] [address] One 2020-09-10 2020-09-10 [facility] [id number] Univers 15:00:00 15:00:00 REY sagastume [facility] 2020-09-05 2020-09-05 Refill [facility] 1.2.840.114 [id number] Univers 00:00:00 00:00:00 [facility] [id number] it y of [place] 4.2.7.2.686 [place] as Professio [phone] [address] Office [facility] 2020-08-15 2020-08-15 Security Professional Dontae [facility] Main [facility] 1.2.8 40.114 [id number] Univers 16:03:55 16:18:55 Visit Jamie Roger K[place] [id number] it[place] of [place]2.[place].2.[place] [phone] Sc dical nal [address] [facility] 2020-08-15 2020-08-15 Outpatient [facility] [id number] Univers 15:45:00 15:45:00 JAMIE sagastume [facility] 2020-08-12 2020-08-12 Refmargo [facility] 1.2.840.114 [id number] Univers 00:00:00 00:00:00 [facility] [id number] it y of [place] 4.2.7.2.686 [place] as Professio [phone] Sc dical nal [address] Office [facility] 2020-08-01 2020-08-01 Office [facility] 1.2.196.884 [id number] Univers 14:28:15 16:57:50 Visit Jamie H [place] 350.1.13.10 i ty of [place] 4.2.7.2.[place] [phone] Sc dical nal [address] [facility] 2020-08-01 2020-08-01 Outpatient [facility] [id number] Univers 14:30:00 14:30:00 JAMIE sagastume [facility] 2020-08-01 2020-08-01 Orders Doctor LORENZA 1.2.840.114 [id number] Univers 00:00:00 00:00:00 Only Unassigned, GILLIAN 350.1.13.10 ity of Home [facility] 4.2.7.2.686 [place] as [phone] [address] 2020-05-23 2020-05-23 Francisco [facility] 1.2.840.114 [id number] Univers 00:00:00 00:00:00 [facility] 350.1.13.10 it y of [place] 4.2.7.2.686 [place] as Professio [phone] Sc dicdc nal 044 [facility] 2020-05-11 2020-05-11 Francisco [facility] 1.2.840.114 [id number] Univers 00:00:00 00:00:00 [facility] [id number] it y of [place] 4.2.7.2.686 [place] as Professio [phone] Sc dical nal [address] Office [facility] One 2020-04-17 2020-04-17 Telephone [facility] 1.2.961.606 [id number] Univers 00:00:00 00:00:00 Rey Beard 350.1.13.10 i [place]2.7.2.[place] [phone] Sc dical nal 044 [facility] 2020-04-16 2020-04-16 Hospital [facility] 1.2.840.114 [id number] Univers 14:15:00 23:59:00 Encounter Rey Beard 350.1.13.10 it[place] of [place].2.7.2.[place] [phone] [facility] [address] 2020-04-16 2020-04-16 Office [facility] 1.2.840.114 [id number] Univers 13:28:41 13:43:41 Visit Rey Beard 350.1.13.10 i ty of [place] 4.2.7.2.[place] [phone] Sc dicdc nal 044 [facility] 2020-04-16 2020-04-16 [facility]patient [facility] [id number] Univers 13:30:00 13:30:00 REY sagastume of [facility] 2020-04-16 2020-04-16 Orders Doctor LORENZA 1.2.840.114 [id number] Univers 00:00:00 00:00:00 Only Unassigned, GILLIAN 350.1.13.10 ity of Home [facility] 4.2.7.2.686 [place] as [phone] [facility] [address] 2020-04-14 2020-04-14 Refill [facility] 1.2.663.302 [id number] Univers 00:00:00 00:00:00 Jamie Beard 350.1.13.10 i ty of [place] 4.2.7.2.[place] [phone] Sc dical nal 220 [facility] 2020-02-19 2020-02-19 Telephone [facility] 1.2.560.352 [id number] Univers 00:00:00 00:00:00 [facility] [id number] it y of [place] 4.2.7.2.686 [place] as Professio [phone] [facility] 044 [facility] 2020-02-18 2020-02-18 Refmargo Roger [facility] 1.2.477.352 [id number] Univers 00:00:00 00:00:00 Jamie Beard 350.1.13.10 i ty of [place] 4.2.7.2.[place] [phone] [facility] 220 [facility] 2020-02-11 2020-02-11 Office [facility] 1.2.840.114 [id number] Univers 12:41:00 13:11:00 Visit Rey Beard 350.1.13.10 i ty of [place] 4.2.7.2.[place] [phone] [address] 2020-02-11 2020-02-11 [facility] [id number] Univers 12:30:00 12:30:00 REY [facility] 2020-02-11 2020-02-11 Refill [facility] 1.2.840.114 [id number] Univers 00:00:00 00:00:00 [facility] 350.1.13.10 it y of [place] 4.2.7.2.686 [place] as Professio [phone] [facility] 044 [facility] 2020-02-05 2020-02-05 Telephone [facility] 1.2.041.340 [id number] Univers 00:00:00 00:00:00 [facility] 350.1.13.10 it y of [place] 4.2.7.2.686 [place] as Professio [phone] [address] 2020-01-30 2020-01-30 Outpatient R CLAY [facility] [id number] Univers 15:00:00 15:00:00 ROSIO negrita [facility] 2020-01-30 2020-01-30 Telemedici [facility] 1.2.840.114 [id number] Univers 14:14:49 14:29:49 ne Visit Rosio Kisha 350.1.13.10 ity of [place] 4.2.7.2.[place] [phone] Sc dical nal 044 [facility] 2020-01-25 2020-01-25 Telemedici [facility] 1.2.840.114 [id number] Univers 09:39:29 14:29:43 ne Visit Jamie Amaya [place] 350.1.13.10 it[place] of [place] 4[place]2.[place].2.[place] [phone] [facility] [address] [facility] 2020-01-25 2020-01-25 Outpatient [facility] [id number] Univers 13:30:00 13:30:00 JAMIE ity of [facility] 2020-01-03 2020-01-03 Refmargo [facility] 1.2.154.950 [id number] Univers 00:00:00 00:00:00 Jamie Amaya [place] 350.1.13.10 i [place] 4[place]2.[place].2.[place] [phone] [facility] 220 [facility] 2019-12-31 2019-12-31 Francisco [facility] [id number] Univers 00:00:00 00:00:00 Jamie Amaya Kisha 350.1.13.10 i ty [place] 4[place]2.[place].2.[place] [phone] [facility] 220 [facility] 2019-11-13 2019-11-13 Francisco [facility] 1.2.840.114 [id number] Univers 00:00:00 00:00:00 [facility] 350.1.13.10 it y of [place] 4.2.7.2.686 [place] Professio [phone] [address] Office Building One 2019-05-23 2019-05-23 Francisco [facility] 1.2.840.114 [id number] Univers 00:00:00 00:00:00 [facility] 350.1.13.10 it y of [place] 4.2.7.2.686 [place] Professio [phone] Sc dical nal [address] One 2019-05-17 2019-05-17 Telephone SINDHU Roger 1.2.840.114 [id number] [facility] 00:00:00 00:00:00 Jamie Beard 350.1.13.10 i ty [place] 4.2.7.2.[place] [phone] Sc dical nal 220 [facility] Results Test Description Test Time Test Comments Results Result Comments Source POCT HEMOGLOBIN A1C TEST 2022-06-04 20:23:00 Test Item Value Reference Range Interpretation Comme nts POCT HBA1C (test code = 4548-4) 9.5 % 4-6 A Lab Interpretation (test code = 42085-8) [facility] [id number] 20:23:00 Test Item Value Reference Range Interpretation Comments POCT HBA1C (test code = 4548-4) 9.5 % 4-6 A Lab Interpretation (test code = Abnormal 63558-4) [facility]
[2023-02-03 21:06] LABS: Absolute Lymphocytes (CBC) 0.9 K/uL (0.7-4.9); Hematocrit 30.7 % (36.0-45.0); Lymphocytes % 17.3 % (15.3-44.8); MCV 89.9 fL (80-100); MPV 6.8 fL (7.6-11.3); RBC Red Blood Cell Count 3.41 M/uL (3.86-4.86)
[2023-02-03 21:23] LABS: ALT/SGPT 18 U/L (13-56); AST/SGOT 11 U/L (15-37); Albumin 2.9 g/dL (3.4-5.0); Alkaline Phosphatase 107 U/L (45-117); BUN Blood Urea Nitrogen 9 mg/dL (7-18); Bicarbonate 27 mEq/L (21-32); Bilirubin Total 0.2 mg/dL (0.2-1.0); Glomerular Filtration Rate 50 ml/min (=/>90); Glucose Level 314 mg/dL (74-106); NT PRO-BNP 869 pg/mL (<450); Potassium 4.3 mEq/L (3.5-5.1); Protein, Total 6.5 g/dL (6.4-8.2); Sodium Level 128 mEq/L (136-145); Troponin High Sensitivity 19.6 pg/mL (<58.9)
--- NOTE | 2023-02-03 21:23 | RAD REPORT ---
EXAM DESCRIPTION: RAD - Chest Single View - 02/03/2023 9:13 pm CLINICAL HISTORY: CHEST PAIN Chest pain. COMPARISON: Chest Single View dated 12/25/2022 FINDINGS: Portable technique limits examination quality. The lungs are grossly clear. The heart is mildly enlarged. No displaced fractures.Aortic atherosclero sis. IMPRESSION: No acute intrathoracic process suspected.
[2023-02-03 21:57] LABS: Bilirubin Direct < 0.1 mg/dL (0-0.2)
--- NOTE | 2023-02-03 23:13 | ER ---
Nurse's Notes [facility] Name: Yancy Sweeney Age: 87 yrs Sex: Female : 1935 Arrival Date: 02/03/2023 Time: 20:04 Bed 3 Private MD: Diagnosis: Unstable angina Presentation: 02/03 20:12 Chief complaint: Patient states: C/o chest pain 03/12. Coronavirus screen: Vaccine ll3 status: Patient reports being unvaccinated. At this time, the client does not indicate any symptoms associated with coronavirus-19. Ebola Screen: No symptoms or risks identified at this time. Initial Sepsis Screen: Does the patient meet any 2 criteria? No. Patient's initial sepsis screen is negative. Does the patient have a suspected source of infection? No. Patient's initial sepsis screen is negative. Risk Assessment: Do you want to hurt yourself or someone else? Patient reports no desire to harm self or others. Onset of symptoms was February 02, 2023 at 22:00. 20:12 Method Of Arrival: Ambulatory ll3 20:12 Acuity: NAOMIE 2 ll3 Historical: - Allergies: 20:14 Ciprofloxacin; cant take it with levoquin together; ll3 - Home Meds: 20:14 insulin [Active]; Lisinopril Oral [Active]; atorvastatin oral [Active]; ll3 - PMHx: 20:14 Diabetes mellitus; Hypertensive disorder; Hypercholesterolemia; ll3 - PSHx: 20:14 Stented artery; Total abdominal hysterectomy; Cholecystectomy; ll3 - Immunization history:: Client reports having NOT received the Covid vaccine. - Social history:: Smoking status: Patient denies any tobacco usage or history of. Screenin:02 [facility] ED Fall Risk Assessment (Adult) Score/Fall Risk Level 0 - 2 = Low Risk. Abuse as6 screen: Denies threats or abuse. Denies injuries from another. Nutritional screening: No deficits noted. Tuberculosis screening: No symptoms or risk factors identified. Assessment: 21:01 General: Appears in no apparent distress. Behavior is calm, cooperative. Pain: as6 Complains of pain in chest. Neuro: Level of Consciousness is awake, alert, obeys commands, Oriented to person, place, time, situation. Cardiovascular: Reports chest pain, shortness of breath. Respiratory: Reports shortness of breath Respiratory effort is even, unlabored, Respiratory pattern is regular, symmetrical. 22:10 Reassessment: Patient appears in no apparent distress at this time. Patient and/or jb4 family updated on plan of care and expected duration. Pain level reassessed. Patient is alert, oriented x 3, equal unlabored respirations, skin warm/dry/pink. 23:50 General: attempted to call report . as6 Vital Signs: 20:12 BP 185 / 70; Pulse 62; Resp 16; Temp 98.4(O); Pulse Ox 99% on R/A; Weight 56.7 kg (R); ll3 Height 5 ft. 5 in. (R); Pain 6/10; 21:01 BP 157 / 63; Pulse 58; Resp 15 S; Pulse Ox 98% on R/A; as6 22:00 BP 144 / 55; Pulse 56; Resp 16; Pulse Ox 97% on R/A; jb4 23:18 BP 159 / 66; Pulse 62; Resp 18 S; Pulse Ox 100% on R/A; as6 23:53 BP 151 / 67; Pulse 67; Resp 18 S; Pulse Ox 100% on R/A; as6 20:12 Body Mass Index 20.80 (56.70 kg, 165.1 cm) ll3 20:12 Pain Scale: Adult ll3 ED Course: 20:07 Patient arrived in ED. ag3 20:14 Triage completed. ll3 20:14 Arm band placed on Patient placed in an exam room, on a stretcher, on pulse oximetry. ll3 20:18 Jamie Parish MD is Attending Physician. kdr 21:00 Inserted saline lock: 20 gauge in right antecubital area, using aseptic technique. as6 Blood collected. 21:02 Bed in low position. Call light in reach. Side rails up X 1. Adult w/ patient. Client as6 placed on continuous cardiac and pulse oximetry monitoring. NIBP monitoring applied. 21:15 XRAY Chest (1 view) In Process Unspecified. EDMS 22:17 Julián Guzman, EDWIN is Primary Nurse. as6 23:11 Jose Magallanes is Hospitalizing Provider. kdr 23:53 No provider procedures requiring assistance completed. Patient admitted, IV remains in as6 place. Administered Medications: No medications were administered Medication: 21:02 VIS not applicable for this client. as6 Outcome: 23:12 Decision to Hospitalize by Provider. kdr 23:53 Admitted to Tele as6 23:53 Condition: stable 23:53 Instructed on the need for admit. 02/04 00:14 Patient left the ED. as6 Signatures: Dispatcher [employer] Jamie Arrington MD MD kdr Bryson, James RN RN jb4 Heaven Ellsworth3 Julián Guzman RN RN as6 Caitlin Gomez RN RN ll3
--- NOTE | 2023-02-03 23:13 | EDPHYS ---
Physician Documentation [facility] Name: Yancy Sweeney Age: 87 yrs Sex: Female : 1935 Arrival Date: 02/03/2023 Time: 20:04 Bed 3 Private MD: ED Physician Jamie Parish HPI: 02/03 23:59 This 87 yrs old Female presents to ER via Ambulatory with complaints of Chest Pain. kdr 02/04 00:00 Patient states that when she awoke this morning went for her walk with her therapist kdr she started having some chest discomfort with exertion. She notes that throughout the day she has had exertional chest discomfort. Also she has had discomfort radiating into her left arm. She states that it feels like there is 1000 pound weight on her arm on the left. Patient recently had [address] Coates and is scheduled to have another stent placed tomorrow. Patient otherwise is not in any acute distress and without any indication for acute intervention at this time. Onset: The symptoms/episode began/occurred this morning. Severity of symptoms: At their worst the symptoms were mild in the emergency department the symptoms have improved moderately. The patient has experienced similar episodes in the past, several times. The patient has been recently seen by a physician: the patient's primary care provider, Dr. arana jig builder. Historical: - Allergies: 02/03 20:14 Ciprofloxacin; cant take it with levoquin together; ll3 - Home Meds: 20:14 insulin [Active]; Lisinopril Oral [Active]; atorvastatin oral [Active]; ll3 - PMHx: 20:14 Diabetes mellitus; Hypertensive disorder; Hypercholesterolemia; ll3 - PSHx: 20:14 Stented artery; Total abdominal hysterectomy; Cholecystectomy; ll3 - Immunization history:: Client reports having NOT received the Covid vaccine. - Social history:: Smoking status: Patient denies any tobacco usage or history of. ROS: 02/04 00:00 Constitutional: Negative for fever, chills, and weight loss, Eyes: Negative for injury, kdr pain, redness, and discharge, ENT: Negative for injury, pain, and discharge, Neck: Negative for injury, pain, and swelling, Respiratory: Negative for shortness of breath, cough, wheezing, and pleuritic chest pain, Abdomen/GI: Negative for abdominal pain, nausea, vomiting, diarrhea, and constipation, Back: Negative for injury and pain, : Negative for injury, bleeding, discharge, and swelling, MS/Extremity: Negative for injury and deformity, Skin: Negative for injury, rash, and discoloration, Neuro: Negative for headache, weakness, numbness, tingling, and seizure activity. Psych: Negative for depression, anxiety, suicide ideation, homicidal ideation, and hallucinations, Allergy/Immunology: Negative for hives, rash, and allergies, Endocrine: Negative for neck swelling, polydipsia, polyuria, polyphagia, and marked weight changes, Hematologic/Lymphatic: Negative for swollen nodes, abnormal bleeding, and unusual bruising. Cardiovascular: Positive for chest pain, Negative for edema, orthopnea, palpitations, paroxysmal nocturnal dyspnea, acute changes. Exam: 02/03 23:58 ECG was reviewed by the Attending Physician. kdr 02/04 00:00 Constitutional: This is a well developed, well nourished patient who is awake, alert, kdr and in no acute distress. Head/Face: Normocephalic, atraumatic. Eyes: Pupils equal round and reactive to light, extra-ocular motions intact. Lids and lashes normal. Conjunctiva and sclera are non-icteric and not injected. Cornea within normal limits. Periorbital areas with no swelling, redness, or edema. Neck: Trachea midline, no thyromegaly or masses palpated, and no cervical lymphadenopathy. Supple, full range of motion without nuchal rigidity, or vertebral point tenderness. No Meningismus. Chest/axilla: Normal chest wall appearance and motion. Nontender with no deformity. No lesions are appreciated. Cardiovascular: Regular rate and rhythm with a normal S1 and S2. No gallops, murmurs, or rubs. Normal PMI, no JVD. No pulse deficits. Respiratory: Lungs have equal breath sounds bilaterally, clear to auscultation and percussion. No rales, rhonchi or wheezes noted. No increased work of breathing, no retractions or nasal flaring. Abdomen/GI: Soft, non-tender, with normal bowel sounds. No distension or tympany. No guarding or rebound. No evidence of tenderness throughout. Back: No spinal tenderness. No costovertebral tenderness. Full range of motion. Skin: Warm, dry with normal turgor. Normal color with no rashes, no lesions, and no evidence of cellulitis. MS/ Extremity: Pulses equal, no cyanosis. Neurovascular intact. Full, normal range of motion. Neuro: Awake and alert, GCS 15, oriented to person, place, time, and situation. Cranial nerves II-XII grossly intact. Motor strength 5/5 in all extremities. Sensory grossly intact. Cerebellar exam normal. Normal gait. Psych: Awake, alert, with orientation to person, place and time. Behavior, mood, and affect are within normal limits. Vital Signs: 02/03 20:12 BP 185 / 70; Pulse 62; Resp 16; Temp 98.4(O); Pulse Ox 99% on R/A; Weight 56.7 kg (R); ll3 Height 5 ft. 5 in. (R); Pain 6/10; 21:01 BP 157 / 63; Pulse 58; Resp 15 S; Pulse Ox 98% on R/A; as6 22:00 BP 144 / 55; Pulse 56; Resp 16; Pulse Ox 97% on R/A; jb4 23:18 BP 159 / 66; Pulse 62; Resp 18 S; Pulse Ox 100% on R/A; as6 23:53 BP 151 / 67; Pulse 67; Resp 18 S; Pulse Ox 100% on R/A; as6 20:12 Body Mass Index 20.80 (56.70 kg, 165.1 cm) ll3 20:12 Pain Scale: Adult ll3 MDM: 23:12 Patient medically screened. [facility] 02/04 00:00 Data reviewed: vital signs, nurses notes, lab test result(s), EKG, radiologic studies. [facility] 02/03 20:19 Order name: Basic Metabolic Panel; Complete Time: 22:49 [facility] 02/03 20:19 Order name: CBC with Diff; Complete Time: 22:49 [facility] 02/03 20:19 Order name: LFT's; Complete Time: 22:49 [facility] 02/03 20:19 Order name: NT PRO-BNP; Complete Time: 22:49 [facility] 02/03 20:19 Order name: Troponin HS; Complete Time: 22:49 [facility] 02/03 20:19 Order name: XRAY Chest (1 view); Complete Time: 22:49 [facility] 02/03 20:19 Order name: EKG; Complete Time: 20:19 [facility] 02/03 20:19 Order name: Cardiac monitoring; Complete Time: 20:26 kdr 02/03 20:19 Order name: EKG - Nurse/Tech; Complete Time: 20:26 kdr 02/03 20:19 Order name: IV Saline Lock; Complete Time: 21:00 kdr 02/03 20:19 Order name: Labs collected and sent; Complete Time: 21:00 kdr 02/03 20:19 Order name: O2 Per Protocol; Complete Time: 21:00 kdr 02/03 20:19 Order name: O2 Sat Monitoring; Complete Time: 21:00 kdr EC/04 23:58 Rate is 62 beats/min. Rhythm is regular, Sinus Rhythm with Left bundle branch block. VT kdr interval is normal. QRS interval is normal. Clinical impression: NSR w/ Non-specific ST/T Changes and Abnormal EKG without significant change. Administered Medications: No medications were administered Disposition Summary: 02/03/23 23:12 Hospitalization Ordered Hospitalization Status: Observation kdr Provider: Jose Magallanes Location: Telemetry/MedSurg (observation) kdr Condition: Fair kdr Problem: an acute exacerbation kdr Symptoms: have improved kdr Bed/Room Type: Standard kdr Room Assignment: 431(02/03/23 23:32) mw Diagnosis - Unstable angina kdr Forms: - Medication Reconciliation Form kdr - SBAR form kdr Signatures: Dispatcher [employer] EDMS Teresa Bonilla RN RN mw Rittger, Kevin, MD MD kdr Loubet, Lynsea, RN RN ll3 Corrections: (The following items were deleted from the chart) 23:32 23:12 kdr quang
--- NOTE | 2023-02-03 23:34 | P.HP ---
Certification for Inpatient Patient admitted to: Observation With expected LOS: <2 Midnights Patient will require the following post-hospital care: None Practitioner: I am a practitioner with admitting privileges, knowledge of patient current condition, hospital course, and medical plan of care. Services: Services provided to patient in accordance with Admission requirements found in Title 42 Section 412.3 of the Code of Federal Regulations Patient History Date of Service: 02/04/23 Primary Care Provider: Richard Reason for admission: Unstable Angina History of Present Illness: Ms. Sweeney is an 87 year old female with past medical history of hypertension, coronary artery disease, and insulin dependent type 2 diabetes who presented to the emergency department with complaints of exertional, intermittent chest pain. Her EKG does not have any acute changes. No significant lab abnormalities. Chest xray negative. She had a cardiac catheterization with 2 stents placed about 1 month ago and has plans for another cath with stent of LAD tomorrow. Given her unstable angina, patient will be admitted for further management with plans for cardiac catheterization and stent placement tomorrow. Chest pain has now resolved. Patient is resting comfortably. Vital signs stable. Allergies levofloxacin [From Levaquin] Adverse Reaction (Verified 01/31/23 08:20) "Confusion" Home medications list reviewed: Yes Home Medications: Insulin Detemir [Levemir] 28 units SQ BEDTIME 12/26/22 Lisinopril [Zestril] 20 mg PO DAILY 12/26/22 Aspirin Chewable [Aspirin Chewable*] 81 mg PO DAILY 30 Days #30 tab.chew 12/29/22 Atorvastatin Calcium [Lipitor] 40 mg PO BEDTIME 30 Days #30 tab 12/29/22 Metoprolol Tartrate [Lopressor*] 25 mg PO BID 30 Days #60 tab 12/29/22 Clopidogrel Bisulfate [Plavix] 75 mg PO DAILY 01/31/23 Metformin HCl [Glucophage] 500 mg PO BIDWM 01/31/23 - Past Medical/Surgical History Diabetic: Yes -: Insulin Dependent Type 2 Diabetes -: Hypertension -: Emphysema -: Coronary Artery Disease -: Cholecystectomy -: Cardiac cath with stents Psychosocial/ Personal History: Patient lives at home by herself. - Family History Family History: Reviewed- Non-Contributory - Social History Smoking Status: Former smoker Alcohol use: No CD- Drugs: No Caffeine use: No Place of Residence: Home Review of Systems Cardiovascular: Chest Pain Physical Examination - Vital Signs Temperature: 98.4 F Blood Pressure: 159/66 Pulse: 62 Respirations: 18 Pulse Ox (%): 100 - Physical Exam General: Alert, In no apparent distress HEENT: Atraumatic, EOMI, Sclerae nonicteric Neck: Supple, 2+ carotid pulse no bruit Respiratory: Clear to auscultation bilaterally, Normal air movement Cardiovascular: Regular rate/rhythm, Normal S1 S2 Gastrointestinal: Normal bowel sounds, No tenderness Musculoskeletal: No tenderness Integumentary: No rashes Neurological: Normal speech, Normal affect - Studies Laboratory Data (last 24 hrs) 02/03/23 20:55: WBC 5.10, Hgb 10.5 L, Hct 30.7 L, Plt Count 297 02/03/23 20:55: Sodium 128 L, Potassium 4.3, BUN 9, Creatinine 1.09 H, Glucose 314 H, Total Bilirubin 0.2, AST 11 L, ALT 18, Alkaline Phosphatase 107 Assessment and Plan - Problems (Diagnosis) (1) Coronary artery disease Current Visit: Yes Status: Chronic Qualifiers: Coronary Disease-Associated Artery/Lesion type: [place] artery [place] vs. transplanted heart: [place] heart Associated angina: with unstable angina Qualified Code(s): I25.110 - Atherosclerotic heart disease of [place] coronary artery with unstable angina pectoris (2) COPD (chronic obstructive pulmonary disease) Current Visit: Yes Status: Chronic Qualifiers: COPD type: emphysema (3) Hypertension Current Visit: Yes Status: Chronic Qualifiers: Hypertension type: primary hypertension Qualified Code(s): I10 - Essential (primary) hypertension (4) Type 2 diabetes mellitus Current Visit: Yes Status: Chronic Qualifiers: Diabetes mellitus penitentiary insulin use: without penitentiary use Diabetes mellitus complication status: with hyperglycemia Qualified Code(s): E11.65 - Type 2 diabetes mellitus with hyperglycemia - Plan Patient is admitted for unstable angina, for cardiac catheterization and stent placement of LAD tomorrow. NPO at midnight. Consult cardiology. Trend troponin. Monitor on telemetry. Blood sugar control. Sodium is low at 128. NS at 75cc/hr. Repeat BMP in morning. Discharge Plan: Home Plan to discharge in: 24 Hours - Advance Directives Does patient have a Living Will: No Does patient have a Durable POA for Healthcare: No - Code Status/Comfort Care Code Status Assessed: Yes Code Status: Full Code Physician Review: Patient Assessed, Agree with Above Assessment and Plan Critical Care: No Time Spent Managing Pts Care (In Minutes): 50
[2023-02-04] MEDS ORDERED: ONDANSETRON 4 MG/2 ML VIAL IV PRN (00:57)
[2023-02-04] MEDS ORDERED: ACETAMINOPHEN 500 MG TAB PO PRN (00:57)
[2023-02-04] MEDS: INSULIN -REGULAR HUMAN 50 UNIT/0.5 ML ML SQ SCH ×4 (01:24→17:53)
[2023-02-04] MEDS: NA CHLORIDE 0.9% 1,000 ML IV SCH ×3 (01:24→22:23)
[2023-02-04 02:20] VITALS: BMI 20.7
[2023-02-04 05:10] LABS: Potassium 3.7 mEq/L (3.5-5.1); Troponin High Sensitivity 22.5 pg/mL (<58.9)
--- NOTE | 2023-02-04 05:49 | EKG ---
Test Date: 2023-02-03 Test Time: 20:21:56 Car Knocker: PAYTON MEASUREMENT RESULTS: Intervals: Rate: 62 ND: 180 QRSD: 148 QT: 456 QTc: 462 Turner: P: 81 ND: 180 QRS: -51 T: 93 INTERPRETIVE STATEMENTS: Normal sinus rhythm Left axis deviation Left bundle branch block Abnormal ECG Compared to ECG 01/31/2023 08:39:35 Sinus bradycardia no longer present Electronically Signed On 02-04-23 05:48:32 CDT by Gerardo Kumar
[2023-02-04 06:54] LABS: Specific Gravity < 1.005 (1.005-1.030); Urine Bacteria None Seen /HPF (<20); Urine Bilirubin NEGATIVE (Negative); Urine Blood Negative (Negative); Urine Clarity Clear (Clear); Urine Color Colorless (Yellow); Urine Glucose 3+ (Negative); Urine Protein TRACE (Negative); Urine RBC <5 /HPF (None Seen); Urine Urobilinogen Normal (Normal); Urine pH 7.5 (5.0-7.0)
[2023-02-04] MEDS ORDERED: ENOXAPARIN 40 MG/0.4 ML SQ SCH (09:00)
[2023-02-04] MEDS ORDERED: POTASSIUM CL SA 10 MEQ TAB PO ONE (09:00)
[2023-02-04] MEDS ORDERED: LIDOCAINE 1% 20 ML MDV ONE ×2 (10:35→13:57)
[2023-02-04] MEDS ORDERED: HEPA 1000U/500MLS 2,000 UNIT/1,000 ML BAG IV ONE ×2 (10:35→13:57)
--- NOTE | 2023-02-04 12:37 | CON ---
Date of Consultation: 02/04/2023 Reason For Consultation: Unstable angina. History Of Present Illness: Ms. Sweeney is 87 years old. She has had an NE recently. Had had an RCA stent. She needs an OM stent, LAD stent. Severe stenosis documented by catheterization by Dr. Jakob hines. Patient continued to have chest pain, substernal, radiating to the left arm with diaphoresis and shortness of breath. Came to the office yesterday and was sent to the emergency room for further ev aluation and treatment of her stenosis. Denied PND, orthopnea, pedal edema, palpitations, or syncope . Denied fevers or chills. Past Medical History: Includes CAD, dyslipidemia, diabetes, hypertension. Allergies: SHE IS ALLERGIC TO LEVAQUIN. Medications: Includes aspirin, Plavix, insulin, Lipitor, Zestril, Glucophage, and Lopressor. Review of Systems: Negative. Social History: Negative. Family History: Negative. Physical Examination: Vital Signs: Blood pressure is 159/66. HEENT: Negative. Neck: Supple with no bruit. Chest: Clear. Cardiac: Revealed a regular rhythm and rate. No murmurs, gallops, or rubs. Abdomen: Benign. Extremities: Revealed no clubbing, cyanosis, or edema. Diagnostic Data: Her creatinine is 0.9, glucose is 365. BNP is 869. Troponin is negative. Impression And Plan: 1.Unstable angina in a patient with documented coronary artery disease. We will schedule her for in tervention to stent her circumflex and may be keep her and stent her LAD down the road sometime withi n the next week but I will leave that up to Dr. Coates. Patient understands the risk and the benefit s of the procedure and she agrees to proceed. Her creatinine is 0.9. Her glucose is 365, and we may have to address that. 2.Her other problems including hypertension, dyslipidemia seemed to be controlled at this point. Ian whalen has been compliant with her medical regimen at home. We will continue to follow her. RAMBO/ADAML Voice ID: [id number] Report ID: [id number]
[2023-02-04] MEDS ORDERED: CLOPIDOGREL 75 MG TABLET ONE (16:04)
[2023-02-04] MEDS ORDERED: ATROPINE SULF 1 MG/10 ML SYR IV ONE (16:04)
[2023-02-04] MEDS ORDERED: FENTANYL CITR 100 MCG/2 ML ONE (16:04)
[2023-02-04] MEDS ORDERED: MIDAZOLAM HCL 2 MG/2 ML INJ ONE (16:04)
[2023-02-04] MEDS ORDERED: ASPIRIN 325 MG TAB ONE (16:04)
[2023-02-04] MEDS ORDERED: TICAGRELOR 90 MG TABLET PO ONE (16:18)
[2023-02-04] MEDS ORDERED: HEPARIN 10,000 UNIT/10 ML VIAL IV ONE (16:21)
[2023-02-04] MEDS ORDERED: HYDRALAZINE HCL 20 MG/ML VIAL ONE (16:24)
--- NOTE | 2023-02-04 18:02 | P.PN ---
Subjective Date of Service: 02/04/23 Primary Care Provider: Richard Chief Complaint: Unstable Angina Patient has no new complaint. She denies any chest pain. Physical Examination - Vital Signs Temperature: 97.8 F Blood Pressure: 146/67 Pulse: 75 Respirations: 18 Pulse Ox (%): 99 - Studies Laboratory Data (last 24 hrs) 02/03/23 20:55: WBC 5.10, Hgb 10.5 L, Hct 30.7 L, Plt Count 297 02/03/23 20:55: Sodium 128 L, Potassium 4.3, BUN 9, Creatinine 1.09 H, Glucose 314 H, Total Bilirubin 0.2, AST 11 L, ALT 18, Alkaline Phosphatase 107 Assessment And Plan - Current Problems (Diagnosis) (1) Coronary artery disease Current Visit: Yes Status: Chronic Qualifiers: Coronary Disease-Associated Artery/Lesion type: [place] artery [place] vs. transplanted heart: [place] heart Associated angina: with unstable angina Qualified Code(s): I25.110 - Atherosclerotic heart disease of [place] coronary artery with unstable angina pectoris (2) Hypertension Current Visit: Yes Status: Chronic Qualifiers: Hypertension type: primary hypertension Qualified Code(s): I10 - Essential (primary) hypertension (3) Type 2 diabetes mellitus Current Visit: Yes Status: Chronic Qualifiers: Diabetes mellitus correction insulin use: without termite control representative use Diabetes mellitus complication status: with hyperglycemia Qualified Code(s): E11.65 - Type 2 diabetes mellitus with hyperglycemia (4) Unstable angina Current Visit: Yes Status: Acute (5) COPD (chronic obstructive pulmonary disease) Current Visit: Yes Status: Chronic Qualifiers: COPD type: emphysema - Plan Physical Exam General: Alert, In no apparent distress Neck: Supple, 2+ carotid pulse no bruit Respiratory: Clear to auscultation bilaterally, Normal air movement Cardiovascular: Regular rate/rhythm, Normal S1 S2 Gastrointestinal: Normal bowel sounds, No tenderness Musculoskeletal: No tenderness Integumentary: No rashes Neurological: No focal motor deficit. Plan: Resume home dose aspirin, Plavix, and Lipitor Metoprolol Cardiology consult appreciated. Cardiology is planning cardiac catheterization with stent placement. Resume home dose Lantus insulin. Cardiology to follow
[2023-02-04] MEDS ORDERED: HYDROCODONE/APAP 5/325 MG TAB PO PRN (18:08)
[2023-02-04] MEDS ORDERED: ONDANSETRON 4 MG/2 ML VIAL ONE (18:33)
[2023-02-04] MEDS ORDERED: TICAGRELOR 90 MG TABLET PO SCH (21:00)
[2023-02-04] MEDS ORDERED: INSULIN GLARGINE 100 UNIT/ML SQ SCH (21:00)
[2023-02-04] MEDS ORDERED: ATORVASTATIN 40 MG TAB PO SCH (21:00)
[2023-02-04] MEDS ORDERED: HOME MED 1 EA UNK (Insulin Detemir [Levemir] 100 UNIT/1 ML Ml) SQ SCH (21:00)
[2023-02-04] MEDS: METOPROLOL TAR 25 MG TAB PO SCH (22:22)
--- NOTE | 2023-02-05 00:10 | OP ---
Date of Procedure: 02/04/2023 Surgeon: AJ CHEN Procedures Performed: 1.Selective coronary angiogram. 2.Left heart catheterization. 3.Failed percutaneous coronary intervention of the txa-og-gxtrzl left anterior descending artery sev ere stenosis due to heavily calcified stenosis and could not cross even a 1.20 balloon. Access: Right femoral artery 6-[place] closed with StarClose and minimal pressure. Complications: None. Estimated Blood Loss: Bleeding less than 50 mL. Anesthesia: Total sedation time was 30 minutes. Description Of Procedure: After risks, benefits, and alternatives were explained, the patient agreed to procedure and signed informed consent. [facility] and prepped and draped in sterile fashion. Then, I accessed right femoral artery using micr opuncture kit, ultrasound guidance, and fluoroscopy and placed 6-[place] sheath and then took a 6-[place] EBU 3.5 guide with side holes over J-wire into the aortic root and engaged left main, too k standard views, and then the took short Runthrough wire into the LAD. I was able to pass the wire with difficulty due to heavily calcified stenosis in ird-vu-ofrqio LAD and gave systemic heparin to a ssure ACT level above 250 throughout the procedure and I tried to use 2.5 compliant balloon and it wo uld not cross and then I used the smallest balloon we had, which is 1.2 mm balloon and it could not c ross the area of stenosis. Then on trying to remove the wire, the wire was stuck slightly and then I was able to remove it and did angiogram after that. There were no complications or dissection. At this point, I decided to abort the procedure and plan for medical management. If she continues to be symptomatic, then the only option would be CSI atherectomy. Then, I exchanged for a 6-[place] 3DRC c atheter, engaged the RCA, took standard views and the catheter was pushed over the wire into the LV, measured the LVEDP and pullback did not record any gradient. Then I removed the catheter and sheath. StarClose was used for closure with good hemostasis. Findings: 1.Left main: Large and normal. 2.LAD: It is of moderate size with proximal diffuse 50% stenosis and also diffuse 30% to 40% stenos is and then mid to distal, there is a segment that is about 20 mm, it is severely stenosed, about 90% , heavily calcified, very difficult to cross with balloons, even the smallest balloon. The rest of t he LAD appears normal. 3.Left circumflex: It is a rather large vessel and there is a stent that extends into the OM that i s widely patent. 4.RCA: Large and dominant. The mid RCA stent is widely patent. In the distal RCA there is 40% foc al stenosis and then the PDA has multiple tandem lesions ranging between 60% to 70% stenosis. 5.LVEDP is borderline at 13 mmHg. Conclusion: 1.Severe rky-zm-yzbwzw left anterior descending stenosis, failed percutaneous coronary intervention due to the heavily calcified stenosis, could not pass any equipment through. 2.Widely patent left circumflex and right coronary artery stents. Plan: Intensified medical management and if the patient continues to be symptomatic, the only option is to do a CSI atherectomy and then PCI. She can be discharged today and to follow up with me in e office in 1 week and we will arrange for the above plan. /EDAURD Voice ID: [id number] Report ID: [id number]
[2023-02-05] MEDS: INSULIN -REGULAR HUMAN 50 UNIT/0.5 ML ML SQ SCH ×2 (01:03→05:40)
[2023-02-05] MEDS: NA CHLORIDE 0.9% 1,000 ML IV SCH (03:37)
[2023-02-05 04:51] LABS: Magnesium 2.3 mg/dL (1.6-2.4); Phosphorus 3.1 mg/dL (2.5-4.9); Potassium 3.8 mEq/L (3.5-5.1)
[2023-02-05] MEDS: METOPROLOL TAR 25 MG TAB PO SCH (08:21)
[2023-02-05 08:22] VITALS: BP 144/65
[2023-02-05 08:44] VITALS: TEMP 98.1
[2023-02-05] MEDS ORDERED: lisinopriL 20 MG TAB PO SCH (09:00)
[2023-02-05] MEDS ORDERED: CLOPIDOGREL 75 MG TABLET PO SCH ×2 (09:00)
[2023-02-05] MEDS ORDERED: ASPIRIN 81 MG CHEWABLE TABLET PO SCH (09:00)
[2023-02-05] MEDS ORDERED: POTASSIUM CL SA 10 MEQ TAB PO ONE (09:00)
[2023-02-05 10:56] VITALS: O2SAT 98
--- NOTE | 2023-02-05 13:17 | P.DS ---
Admission Date: 02/03/23 Discharge Date: 02/05/23 Primary Care Provider: Richard Disposition: ROUTINE DISCHARGE Discharge Condition: FAIR Reason for Admission: Unstable Angina - Problems (1) Coronary artery disease Status: Chronic Qualifiers: Coronary Disease-Associated Artery/Lesion type: [place] artery [place] vs. transplanted heart: [place] heart Associated angina: with unstable angina Qualified Code(s): I25.110 - Atherosclerotic heart disease of [place] coronary artery with unstable angina pectoris (2) Hypertension Status: Chronic Qualifiers: Hypertension type: primary hypertension Qualified Code(s): I10 - Essential (primary) hypertension (3) Type 2 diabetes mellitus Status: Chronic Qualifiers: Diabetes mellitus usp insulin use: without usp use Diabetes mellitus complication status: with hyperglycemia Qualified Code(s): E11.65 - Type 2 diabetes mellitus with hyperglycemia (4) Unstable angina Status: Acute (5) COPD (chronic obstructive pulmonary disease) Status: Chronic Qualifiers: COPD type: emphysema Brief History of Present Illness: Ms. Sweeney is an 87 year old female with past medical history of hypertension, coronary artery disease, and insulin dependent type 2 diabetes who presented to the emergency department with complaints of exertional, intermittent chest pain. Her EKG does not have any acute changes. No significant lab abnormalities. Chest xray negative. She had a cardiac catheterization with 2 stents placed about 1 month ago and has plans for another cath with stent of LAD tomorrow. Given her unstable angina, patient admitted for further management with plans for cardiac catheterization and stent placement. Hospital Course: Patient placed under observation on the medical floor. His CAD medications included aspirin, statin, beta-blockers will continued during the hospital stay. Patient seen by cardiology Dr. Coates and cardiac cath performed. Cardiac cath reported severe bki-ak-pskntg left anterior descending stenosis, failed percutaneous coronary intervention due to the heavily calcified stenosis, could not pass any equipment through. Widely patent left circumflex and right coronary artery stents. Dr. Coates recommend medical management for now. Patient deemed stable for discharge per cardiology. Vital Signs/Physical Exam: Temp Pulse Resp BP Pulse Ox 98.1 F 66 16 144/65 H 98 02/05/23 08:00 02/05/23 10:00 02/05/23 08:00 02/05/23 10:00 02/05/23 08:00 General: Alert, In no apparent distress, Oriented x3 HEENT: Mucous membr. moist/pink Neck: Supple, JVD not distended Respiratory: Clear to auscultation bilaterally, Normal air movement Cardiovascular: No edema, Regular rate/rhythm, Normal S1 S2 Gastrointestinal: Soft and benign, Non-distended, No tenderness Musculoskeletal: No swelling Integumentary: No rashes Neurological: Normal strength at 5/5 x4 extr Laboratory Data at Discharge: WBC 5.10 thou/uL (4.3-10.9) 02/03/23 20:55 Hgb 10.5 g/dL (12.0-15.0) L 02/03/23 20:55 Hct 30.7 % (36.0-45.0) L 02/03/23 20:55 Plt Count 297 thou/uL (152-406) 02/03/23 20:55 Sodium 136 mEq/L (136-145) D 02/05/23 03:54 Potassium 3.8 mEq/L (3.5-5.1) 02/05/23 03:54 BUN 11 mg/dL (7-18) 02/05/23 03:54 Creatinine 1.02 mg/dL (0.55-1.02) 02/05/23 03:54 Glucose 129 mg/dL (74-106) H 02/05/23 03:54 Phosphorus 3.1 mg/dL (2.5-4.9) 02/05/23 03:54 Magnesium 2.3 mg/dL (1.6-2.4) 02/05/23 03:54 Total Bilirubin 0.2 mg/dL (0.2-1.0) 02/03/23 20:55 AST 11 U/L (15-37) L 02/03/23 20:55 ALT 18 U/L (13-56) 02/03/23 20:55 Alkaline Phosphatase 107 U/L (45-117) 02/03/23 20:55 Home Medications: Insulin Detemir [Levemir] 28 units SQ BEDTIME 12/26/22 Lisinopril [Zestril] 20 mg PO DAILY 12/26/22 Aspirin Chewable [Aspirin Chewable*] 81 mg PO DAILY 30 Days #30 tab.chew 12/29/22 Atorvastatin Calcium [Lipitor] 40 mg PO BEDTIME 30 Days #30 tab 12/29/22 Metoprolol Tartrate [Lopressor*] 25 mg PO BID 30 Days #60 tab 12/29/22 Clopidogrel Bisulfate [Plavix*] 75 mg PO DAILY 01/31/23 Metformin HCl [Glucophage*] 500 mg PO BIDWM 01/31/23 Hydrocodone 5/APAP 325 [[place] 5/325*] 1 tab PO Q6HP PRN 02/04/23 Diet: ADA Activity: Ad mikhail Followup: Wilfred Ramos MD [Primary Care Provider] - 1 Week (Please call to schedule an appointment. )
--- NOTE | 2023-02-05 15:10 | PN ---
Date of Progress Note: 02/05/2023 Ms. Sweeney came in with unstable angina, was admitted. Dr. Coates did a heart catheterization on her yesterday. She had a patent RCA and OM stent. Attempted to do an angioplasty and stent on the LAD, but failed because the blood vessel was too small and the disease was very severe and calcified. We decided to treat Ms. Sweeney with medical therapy for now. Overnight, she had no growing complicatio n. No telemetry changes. No symptoms. She will go home today and follow up with Dr. Coates in the next week or 2. No change in her medical therapy. RAMBO/EDUARD Voice ID: [id number] Report ID: [id number]
== END 2023-02-05 11:48 | disposition home health service (06) ==
LOC: ER 20:04 → 4TH 23:51
PROVIDERS: ADMIT Internal Medicine; ATTEND Internal Medicine
DX: I25.110 Atherosclerotic heart disease of native coronary artery with unstable angina pectoris (principal); I10 Essential (primary) hypertension; E11.65 Type 2 diabetes mellitus with hyperglycemia; I44.7 Left bundle-branch block, unspecified; J43.9 Emphysema, unspecified; E78.2 Mixed hyperlipidemia; R09.89 Other specified symptoms and signs involving the circulatory and respiratory systems; Z95.5 Presence of coronary angioplasty implant and graft; Z79.82 Long term (current) use of aspirin; Z79.4 Long term (current) use of insulin; Z79.02 Long term (current) use of antithrombotics/antiplatelets; Z79.84 Long term (current) use of oral hypoglycemic drugs; Z79.899 Other long term (current) drug therapy; Z88.3 Allergy status to other anti-infective agents; Z87.891 Personal history of nicotine dependence; Z90.49 Acquired absence of other specified parts of digestive tract; Z28.310 Unvaccinated for COVID-19
CPT/HCPCS: 36415; 71045; 76937; 80048; 80076; 81001; 82947; 83735; 83880; 83930; 83935; 84100; 84300; 84484; 85025; 85347; 92920; 93005; 93458; 99285; C1725; C1893; G0378; J0360; J0461; J1815; J2001; J2250; J2405; J3010; J7030; Q9966

== ENCOUNTER → 2023-11-18 | Emergency (ER) | payer OTHER ==
[~2023-11-18] MED LIST: NA CHLORIDE 0.9% 1,000 ML ONE
--- OUTSIDE RECORDS SUMMARY | 2023-11-18 17:10 | XMS REPORT | Continuity of Care Document ---
Author Name Unknown Address [address] [facility] [address] [address] [place] [address] [facility] Address 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 Name Role Phone Wilfred Arango MD Primary Care Physician [phone] JAI MARK Attending Clinician STEVEN Thorne Attending Clinician Unavailable WILFRED ARANGO Attending Clinician Unavailable ROSIO WILLIAMSON Attending Clinician Roiso Morales MD Attending Clinician [phone] Wilfred Arango MD Attending Clinician [phone] [facility] Attending Clinician Cara vailable Doctor Unassigned, [place] Attending Clinician U navailable OMER APARICIO Attending Clinician Unavailable Omer Aparicio MD Attending Clinician [phone] Lab, Ang - Db Attending Clinician Unavailable LEEROY ALBARRAN Attending Clinician UnavailLeeroy Kaye MD Attending Clinician [phone] MARCIA CHOW Attending Clinician Unavailable Jamie Roger MD Attending Clinician [phone] JAMIE ROGER Attending Clinician UnavailMarcia Eduardo Attending Clinician [phone] Dora Amor Attending Clinician PERLA VILLARREAL Attending Clinician Unavail able PERLA VILLARREAL Attending Clinician Unavail able Jai Mark MD Attending Clinician + [phone] Only, Adc Test Attending Clinician Unavailable Dwight WALLACE Damien Jas Attending Clinician [phone] Cecille PINEDA, Meseret Attending Clinician Unavailable Aidee Nunez Attending Clinician [phone] Marguerite MONROE, Jose Attending Clinician [phone] Jewell PINEDA, Heaven Conner Attending Clinician Cara vailable Lab, Adc Fam Pob I Attending Clinician Unavailab ana maria Hurst SUPERVISOR TELEPHONE ANSWERING SERVICE, Roberto Attending Clinician [phone] ROBERTO HURST Attending Clinician Unavailable Pob, Adc Lab Main Attending Clinician UnavailJAI Baires Admitting Clinician Jai Davies MD Admitting Clinician [phone] Marguerite MONROE, Jose Admitting Clinician [phone] Payers Payer Name Policy Type Policy Number Effective Date Expirati on Date Source [employer] [id number] 2014 00:00:00 [employer] [place]MIUM H[place] [id number] 2023 00:00:00 Problems Condition Name Condition Details Condition Category Status Onset Date Resolution Date Last Treatment Date Treating Clinician Comments Source Colitis, acute Colitis, acute Disease Active 10-24 00:00: 00 [facility] Essential hypertensi on Essential hypertensi on Disease Active 02-15 00:00: 00 [facility] Type 2 diabetes mellitus without complicati on, with long-term current use of insulin Type 2 diabetes mellitus without complicati on, with long-term current use of insulin Disease Active 02-15 00:00: 00 [facility] UTI (urinary tract infection) UTI (urinary tract infection) Disease Active 03-20 00:00: 00 [facility] Acute bilateral low back pain with sciatica Acute bilateral low back pain with sciatica Disease Active 03-20 00:00: 00 [facility] Allergies, Adverse Reactions, Alerts Allergy Name Allergy Type Status Severity Reaction(s) Onset Date Inactive Date Treating Clinician Comments Source NO KNOWN ALLERGIE S Drug Class Active [facility] Social History Social Habit Start Date Stop Date Quantity Comments Source [facility] Alcohol intake 2023-10-05 00:00:00 2023-10-05 00:00:00 Current non-drinker of alcohol (finding) [facility] History of Social function 2023-09-20 00:00:00 2023-09-20 00:00:00 [facility] Exposure to SARS-CoV-2 (event) 2023-02-14 00:00:00 2023-02-24 13:40:00 Not sure [facility] Tobacco use and exposure 2022-09-22 00:00:00 2022-09-22 00:00:00 Smokeless tobacco non-user [facility] Sex Assigned At 1935 00:00:00 1935 00:00:00 [facility] Smoking Status Start Date Stop Date Source Never smoked tobacco [facility] Medications Ordered Medication Name Filled Medication Name Start Date Stop Date Current Medication? Ordering Clinician Indication Dosage Frequency Signature (SIG) Comments Components Source metroNIDAZO LE (FLAGYL) 500 mg tablet 11-14 00:00: 00 Yes [id number] 500mg Take 1 tablet by mouth every 8 (eight) hours. [facility] ciprofloxac in HCl (CIPRO) 500 mg tablet 11-14 00:00: 00 Yes [id number] 500mg Take 1 tablet by mouth every 12 (twelve) hours. [facility] metroNIDAZO LE (FLAGYL) 500 mg tablet 11-14 00:00: 00 Yes [id number] 500mg Take 1 tablet by mouth every 8 (eight) hours. [facility] ciprofloxac in HCl (CIPRO) 500 mg tablet 11-14 00:00: 00 Yes [id number] 500mg Take 1 tablet by mouth every 12 (twelve) hours. [facility] iopamidol (ISOVUE 370-500 mL) injection 80 mL 10-05 23:00: 10-05 22:02 :00 No [id number] 80mL 80 mL, Intravenou s, ONCE, 1 dose, On Tue10/05/23 at 1700, Routine [facility] ciprofloxac in HCl (CIPRO) 500 mg tablet 10-05 00:00: 00 Yes [id number] 500mg Take 1 tablet by mouth every 12 (twelve) hours. [facility] metroNIDAZO LE (FLAGYL) 500 mg tablet 10-05 00:00: 00 Yes [id number] 500mg Take 1 tablet by mouth every 12 (twelve) hours. [facility] ciprofloxac in HCl (CIPRO) 500 mg tablet 10-05 00:00: 00 Yes [id number] 500mg Take 1 tablet by mouth every 12 (twelve) hours. [facility] metroNIDAZO LE (FLAGYL) 500 mg tablet 10-05 00:00: 00 Yes [id number] 500mg Take 1 tablet by mouth every 12 (twelve) hours. [facility] ciprofloxac in HCl (CIPRO) 500 mg tablet 10-05 00:00: 00 Yes [id number] 500mg Take 1 tablet by mouth every 12 (twelve) hours. [facility] metroNIDAZO LE (FLAGYL) 500 mg tablet 10-05 00:00: 00 Yes [id number] 500mg Take 1 tablet by mouth every 12 (twelve) hours. [facility] ciprofloxac in HCl (CIPRO) 500 mg tablet 10-05 00:00: 00 Yes [id number] 500mg Take 1 tablet by mouth every 12 (twelve) hours. [facility] metroNIDAZO LE (FLAGYL) 500 mg tablet 0 10-05 00:00: 00 Yes [id number] 500mg Take 1 tablet by mouth every 12 (twelve) hours. [facility] ciprofloxac in HCl (CIPRO) 500 mg tablet 0 10-05 00:00: 00 Yes [id number] 500mg Take 1 tablet by mouth every 12 (twelve) hours. [facility] metroNIDAZO LE (FLAGYL) 500 mg tablet - 00:00: 00 Yes [id number] 500mg Take 1 tablet by mouth every 12 (twelve) hours. [facility] nitroglycer in 0.3 mg sublingual tablet 2022-10 00:00: [id number] 1 tablet under the tongue every 5 (five) minutes as needed for Chest pain. [facility] lisinopriL 20 mg tablet 2022-10 00:00: 00 Yes [id number] 20mg Take 1 tablet by mouth in the morning. [facility] HYDROcodone -acetaminop hen 7.5-325 mg per tablet 2022-10 00:00: 00 Yes [id number] TAKE 1 TABLET BY MOUTH EVERY SIX HOURS NEEDED FOR PAIN Indication s: chronic pain [facility] hydroCHLORO thiazide 12.5 mg capsule 2022-10 00:00: 00 Yes [id number] 12.5mg Take 1 capsule by mouth in the morning. [facility] escitalopra m oxalate 5 mg tablet 2022-10 00:00: 00 Yes [id number] TAKE ONE TABLET BY MOUTH IN THE MORNING. [facility] nitroglycer in 0.3 mg sublingual tablet 2022-10 00:00: [id number] 1 tablet under the tongue every 5 (five) minutes as needed for Chest pain. [facility] lisinopriL 20 mg tablet 2022-10 00:00: 00 Yes [id number] 20mg Take 1 tablet by mouth in the morning. [facility] HYDROcodone -acetaminop hen 7.5-325 mg per tablet 2022-10 00:00: 00 Yes [id number] TAKE 1 TABLET BY MOUTH EVERY SIX HOURS NEEDED FOR PAIN Indication s: chronic pain [facility] hydroCHLORO thiazide 12.5 mg capsule 2022-10 00:00: 00 Yes [id number] 12.5mg Take 1 capsule by mouth in the morning. [facility] escitalopra m oxalate 5 mg tablet 2022-10 00:00: 00 Yes [id number] TAKE ONE TABLET BY MOUTH IN THE MORNING. [facility] 0.3 mg sublingual tablet 2022-10 00:00: [id number] 1 tablet under the tongue every 5 (five) minutes as needed for Chest pain. [facility] l[facility] 20 mg tablet 2022-10 00:00: 00 Yes [id number] 20mg Take 1 tablet by mouth in the morning. [facility] HYDROcodone -acetaminop hen 7.5-325 mg per tablet 2022-10 00:00: 00 Yes [id number] TAKE 1 TABLET BY MOUTH EVERY SIX HOURS NEEDED FOR PAIN Indication s: chronic pain [facility] hydroCHLORO thiazide 12.5 mg capsule 2022-10 00:00: 00 Yes [id number] 12.5mg Take 1 capsule by mouth in the morning. [facility] escitalopra m oxalate 5 mg tablet 2022-10 00:00: 00 Yes [id number] TAKE ONE TABLET BY MOUTH IN THE MORNING. [facility] nitroglycer in 0.3 mg sublingual tablet 2022-10 00:00: [id number] 1 tablet under the tongue every 5 (five) minutes as needed for Chest pain. [facility] lisinopriL 20 mg tablet 2022-10 00:00: 00 Yes [id number] 20mg Take 1 tablet by mouth in the morning. [facility] HYDROcodone -acetaminop hen 7.5-325 mg per tablet 2022-10 00:00: 00 Yes [id number] TAKE 1 TABLET BY MOUTH EVERY SIX HOURS NEEDED FOR PAIN Indication s: chronic pain [facility] hydro[facility] thiazide 12.5 mg capsule 2022-10 00:00: 00 Yes [id number] 12.5mg Take 1 capsule by mouth in the morning. [facility] escitalopra m oxalate 5 mg tablet 2022-10 00:00: 00 Yes [id number] TAKE ONE TABLET BY MOUTH IN THE MORNING. [facility] nitroglycer in 0.3 mg sublingual tablet 2022-10 00:00: [id number] 1 tablet under the tongue every 5 (five) minutes as needed for Chest pain. [facility] lisinopriL 20 mg tablet 2022-10 00:00: 00 Yes [id number] 20mg Take 1 tablet by mouth in the morning. [facility] HYDROcodone -acetaminop hen 7.5-325 mg per tablet 2022-10 00:00: 00 Yes [id number] TAKE 1 TABLET BY MOUTH EVERY SIX HOURS NEEDED FOR PAIN Indication s: chronic pain [facility] hydroCHLORO thiazide 12.5 mg capsule 2022-10 00:00: 00 Yes [id number] 12.5mg Take 1 capsule by mouth in the morning. [facility] escitalopra m oxalate 5 mg tablet 2022-10 00:00: 00 Yes [id number] TAKE ONE TABLET BY MOUTH IN THE MORNING. [facility] nitroglycer in 0.3 mg sublingual tablet 2022-10 00:00: [id number] 1 tablet under the tongue every 5 (five) minutes as needed for Chest pain. [facility] lisinopriL 20 mg tablet 2022-10 00:00: 00 Yes [id number] 20mg Take 1 tablet by mouth in the morning. [facility] HYDROcodone -acetaminop hen 7.5-325 mg per tablet 2022-10 00:00: 00 Yes [id number] TAKE 1 TABLET BY MOUTH EVERY SIX HOURS NEEDED FOR PAIN Indication s: chronic pain [facility] hydroCHLORO thiazide 12.5 mg capsule 2022-10 00:00: 00 Yes [id number] 12.5mg Take 1 capsule by mouth in the morning. [facility] escitalopra m oxalate 5 mg tablet 2022-10 00:00: 00 Yes [id number] TAKE ONE TABLET BY MOUTH IN THE MORNING. [facility] nitroglycer in 0.3 mg sublingual tablet 2022-10 00:00: [id number] 1 tablet under the tongue every 5 (five) minutes as needed for Chest pain. [facility] lisinopriL 20 mg tablet 2022-10 00:00: 00 Yes [id number] 20mg Take 1 tablet by mouth in the morning. [facility] HYDROcodone -acetaminop hen 7.5-325 mg per tablet 2022-10 00:00: 00 Yes [id number] TAKE 1 TABLET BY MOUTH EVERY SIX HOURS NEEDED FOR PAIN Indication s: chronic pain [facility] hydroCHLORO thiazide 12.5 mg capsule 2022-10 00:00: 00 Yes [id number] 12.5mg Take 1 capsule by mouth in the morning. [facility] escitalopra m oxalate 5 mg tablet 2022-10 00:00: 00 Yes [id number] TAKE ONE TABLET BY MOUTH IN THE MORNING. [facility] nitroglycer in 0.3 mg sublingual tablet 2022-10 00:00: [id number] 1 tablet under the tongue every 5 (five) minutes as needed for Chest pain. [facility] lisinopriL 20 mg tablet 2022-10 00:00: 00 Yes [id number] 20mg Take 1 tablet by mouth in the morning. [facility] HYDROcodone -acetaminop hen 7.5-325 mg per tablet 2022-10 00:00: 00 Yes [id number] TAKE 1 TABLET BY MOUTH EVERY SIX HOURS NEEDED FOR PAIN Indication s: chronic pain [facility] hydroCHLORO thiazide 12.5 mg capsule 2022-10 00:00: 00 Yes [id number] 12.5mg Take 1 capsule by mouth in the morning. [facility] escitalopra m oxalate 5 mg tablet 2022-10 00:00: 00 Yes [id number] TAKE ONE TABLET BY MOUTH IN THE MORNING. [facility] nitroglycer in 0.3 mg sublingual tablet 2022-10 00:00: [id number] 1 tablet under the tongue every 5 (five) minutes as needed for Chest pain. [facility] lisinopriL 20 mg tablet 2022-10 00:00: 00 Yes [id number] 20mg Take 1 tablet by mouth in the morning. [facility] HYDROcodone -acetaminop hen 7.5-325 mg per tablet 2022-10 00:00: 00 Yes [id number] TAKE 1 TABLET BY MOUTH EVERY SIX HOURS NEEDED FOR PAIN Indication s: chronic pain [facility] hydroCHLORO thiazide 12.5 mg capsule 2022-10 00:00: 00 Yes [id number] 12.5mg Take 1 capsule by mouth in the morning. [facility] escitalopra m oxalate 5 mg tablet 2022-10 00:00: 00 Yes [id number] TAKE ONE TABLET BY MOUTH IN THE MORNING. [facility] metformin ER 750 mg 24 hr tablet 2022-10 00:00: 00 Yes [id number] 750mg Take 1 tablet by mouth daily with breakfast. [facility] insulin detemir U-100 100 unit/mL injection 2022-10 00:00: 00 Yes [id number] Take 20 units in the morning and 12 units at bedtime E11.65 [facility] metformin ER 750 mg 24 hr tablet 2022-10 00:00: 00 Yes [id number] 750mg Take 1 tablet by mouth daily with breakfast. [facility] insulin detemir U-100 100 unit/mL injection 2022-10 00:00: 00 Yes [id number] Take 20 units in the morning and 12 units at bedtime E11.65 [facility] metformin ER 750 mg 24 hr tablet 2022-10 00:00: 00 Yes [id number] 750mg Take 1 tablet by mouth daily with breakfast. [facility] insulin detemir U-100 100 unit/mL injection 2022-10 00:00: 00 Yes [id number] Take 20 units in the morning and 12 units at bedtime E11.65 [facility] metformin ER 750 mg 24 hr tablet 2022-10 00:00: 00 Yes [id number] 750mg Take 1 tablet by mouth daily with breakfast. [facility] insulin detemir U-100 100 unit/mL injection 2022-10 00:00: 00 Yes [id number] Take 20 units in the morning and 12 units at bedtime E11.65 [facility] metformin ER 750 mg 24 hr tablet 2022-10 00:00: 00 Yes [id number] 750mg Take 1 tablet by mouth daily with breakfast. [facility] insulin detemir U-100 100 unit/mL injection 2022-10 00:00: 00 Yes [id number] Take 20 units in the morning and 12 units at bedtime E11.65 [facility] metformin ER 750 mg 24 hr tablet 2022-10 00:00: 00 Yes [id number] 750mg Take 1 tablet by mouth daily with breakfast. [facility] insulin detemir U-100 100 unit/mL injection 2022-10 00:00: 00 Yes [id number] Take 20 units in the morning and 12 units at bedtime E11.65 [facility] metformin ER 750 mg 24 hr tablet 2022-10 00:00: 00 Yes [id number] 750mg Take 1 tablet by mouth daily with breakfast. [facility] insulin detemir U-100 100 unit/mL injection 2022-10 00:00: 00 Yes [id number] Take 20 units in the morning and 12 units at bedtime E11.65 [facility] metformin ER 750 mg 24 hr tablet 2022-10 00:00: 00 Yes [id number] 750mg Take 1 tablet by mouth daily with breakfast. [facility] insulin detemir U-100 100 unit/mL injection 2022-10 00:00: 00 Yes [id number] Take 20 units in the morning and 12 units at bedtime E11.65 [facility] metformin ER 750 mg 24 hr tablet 2022-10 00:00: 00 Yes [id number] 750mg Take 1 tablet by mouth daily with breakfast. [facility] insulin detemir U-100 100 unit/mL injection 2022-10 00:00: 00 Yes [id number] Take 20 units in the morning and 12 units at bedtime E11.65 [facility] metformin ER 750 mg 24 hr tablet 2022-10 2 00:00: 00 Yes [id number] 750mg Take 1 tablet by mouth daily with breakfast. [facility] insulin detemir U-100 100 unit/mL injection 2022-10 00:00: 00 Yes [id number] Take 20 units in the morning and 12 units at bedtime E11.65 [facility] metformin ER 750 mg 24 hr tablet 2022-10 00:00: 00 Yes [id number] 750mg Take 1 tablet by mouth daily with breakfast. [facility] insulin detemir U-100 100 unit/mL injection 2022-10 00:00: 00 Yes [id number] Take 20 units in the morning and 12 units at bedtime E11.65 [facility] ESCITALOPRA M OXALATE 5 mg tablet 2022-10 2 00:00: 00 Yes [id number] TAKE ONE TABLET BY MOUTH IN THE MORNING. [facility] ESCITALOPRA M OXALATE 5 mg tablet 2022-10 2- 00:00: 00 09-21 00:00 :00 No [id number] TAKE ONE TABLET BY MOUTH IN THE MORNING. [facility] ESCITALOPRA M OXALATE 5 mg tablet 2022-10 2- 00:00: 00 09-21 00:00 :00 No [id number] TAKE ONE TABLET BY MOUTH IN THE MORNING. [facility] ESCITALOPRA M OXALATE 5 mg tablet 2022-10 2-06 00:00: 00 09-21 00:00 :00 No [id number] TAKE ONE TABLET BY MOUTH IN THE MORNING. [facility] ESCITALOPRA M OXALATE 5 mg tablet 2022-10 2-06 00:00: 00 09-21 00:00 :00 No [id number] TAKE ONE TABLET BY MOUTH IN THE MORNING. [facility] ESCITALOPRA M OXALATE 5 mg tablet 2022-10 1-14 00:00: 00 Yes [id number] 5mg TAKE 1 TABLET BY MOUTH IN THE MORNING. [facility] ESCITALOPRA M OXALATE 5 mg tablet 2022-10 1-14 00:00: 00 09-07 00:00 :00 No [id number] 5mg TAKE 1 TABLET BY MOUTH IN THE MORNING. [facility] ESCITALOPRA M OXALATE 5 mg tablet 2022-10 0-12 00:00: 00 Yes [id number] 5mg TAKE 1 TABLET BY MOUTH IN THE MORNING. [facility] LISINOPRIL 20 mg tablet 2022-10 0-12 00:00: 00 Yes [id number] 20mg TAKE 1 TABLET BY MOUTH DAILY [facility] HYDROCODONE -ACETAMINOP HEN 7.5-325 mg per tablet 2022-10 0-12 00:00: 00 Yes [id number] TAKE 1 TABLET BY MOUTH EVERY SIX HOURS NEEDED FOR PAIN [facility] LISINOPRIL 20 mg tablet 2022-10 0-12 00:00: 00 Yes [id number] 20mg TAKE 1 TABLET BY MOUTH DAILY [facility] HYDROCODONE -ACETAMINOP HEN 7.5-325 mg per tablet 2022-10 012 00:00: 00 Yes [id number] TAKE 1 TABLET BY MOUTH EVERY SIX HOURS NEEDED FOR PAIN [facility] LISINOPRIL 20 mg tablet 2022-10 0-12 00:00: 00 Yes [id number] 20mg TAKE 1 TABLET BY MOUTH DAILY [facility] HYDROCODONE -ACETAMINOP HEN 7.5-325 mg per tablet 2022-10 0-12 00:00: 00 Yes [id number] TAKE 1 TABLET BY MOUTH EVERY SIX HOURS NEEDED FOR PAIN [facility] LISINOPRIL 20 mg tablet 2022-10 0-12 00:00: 00 09-21 00:00 :00 No [id number] 20mg TAKE 1 TABLET BY MOUTH DAILY [facility] HYDROCODONE -ACETAMINOP HEN 7.5-325 mg per tablet 2022-10 0-12 00:00: 00 09-21 00:00 :00 No [id number] TAKE 1 TABLET BY MOUTH EVERY SIX HOURS NEEDED FOR PAIN [facility] LISINOPRIL 20 mg tablet 2022-10 0-12 00:00: 00 09-21 00:00 :00 No [id number] 20mg TAKE 1 TABLET BY MOUTH DAILY [facility] HYDROCODONE -ACETAMINOP HEN 7.5-325 mg per tablet 2022-10 0-12 00:00: 00 09-21 00:00 :00 No [id number] TAKE 1 TABLET BY MOUTH EVERY SIX HOURS NEEDED FOR PAIN [facility] LISINOPRIL 20 mg tablet 2022-10 0-12 00:00: 00 09-21 00:00 :00 No [id number] 20mg TAKE 1 TABLET BY MOUTH DAILY [facility] HYDROCODONE -ACETAMINOP HEN 7.5-325 mg per tablet 2022-10 0-12 00:00: 00 09-21 00:00 :00 No [id number] TAKE 1 TABLET BY MOUTH EVERY SIX HOURS NEEDED FOR PAIN [facility] LISINOPRIL 20 mg tablet 2022-10 0-12 00:00: 00 09-21 00:00 :00 No [id number] 20mg TAKE 1 TABLET BY MOUTH DAILY [facility] HYDROCODONE -ACETAMINOP HEN 7.5-325 mg per tablet 2022-10 0-12 00:00: 00 09-21 00:00 :00 No [id number] TAKE 1 TABLET BY MOUTH EVERY SIX HOURS NEEDED FOR PAIN [facility] ESCITALOPRA M OXALATE 5 mg tablet 2022-10 0-12 00:00: 00 08-16 00:00 :00 No [id number] 5mg TAKE 1 TABLET BY MOUTH IN THE MORNING. [facility] HYDROCODONE -ACETAMINOP HEN 7.5-325 mg per tablet -18 00:00: 00 Yes [id number] TAKE 1 TABLET BY MOUTH EVERY SIX HOURS NEEDED FOR PAIN [facility] HYDROCODONE -ACETAMINOP HEN 7.5-325 mg per tablet -18 00:00: 00 07-14 00:00 :00 No [id number] TAKE 1 TABLET BY MOUTH EVERY SIX HOURS NEEDED FOR PAIN [facility] metformin ER 750 mg 24 hr tablet 8-15 00:00: 00 Yes [id number] 750mg Take 1 tablet by mouth daily with breakfast. [facility] Insulin Detemir (LEVEMIR FLEXPEN) 100 unit/mL (3 mL) injection 05-17 00:00: 00 Yes [id number] 28U inject 28 Units under the skin every morning. E11.65 [facility] Insulin [place], Disposable, (PEN NEEDLE) 32 gauge x 5/32" Ndle 05-17 00:00: 00 Yes [id number] Use as directed daily E11.65 [facility] Blood-Gluco se Meter (ACCU-CHEK GUIDE GLUCOSE METER) [facility] 05-17 00:00: 00 Yes Use as directed to check blood sugars twice daily E11.65 [facility] blood sugar diagnostic (ACCU-CHEK GUIDE TEST STRIPS) strip 05-17 00:00: 00 Yes Use as directed to check blood sugars twice daily E11.65 [facility] Lancets (ACCU-CHEK SOFTCLIX LANCETS) [facility] 05-17 00:00: 00 Yes Use as directed to check blood sugars twice daily E11.65 [facility] metformin ER 750 mg 24 hr tablet 05-17 00:00: 00 Yes [id number] 750mg Take 1 tablet by mouth daily with breakfast. [facility] Insulin Detemir (LEVEMIR FLEXPEN) 100 unit/mL (3 mL) injection 05-17 00:00: 00 Yes [id number] 28U inject 28 Units under the skin every morning. E11.65 [facility] Insulin [place], Disposable, (PEN NEEDLE) 32 gauge x 5/32" Ndle 05-17 00:00: 00 Yes [id number] Use as directed daily E11.65 [facility] metformin ER 750 mg 24 hr tablet 05-17 00:00: 00 Yes [id number] 750mg Take 1 tablet by mouth daily with breakfast. [facility] Insulin Detemir (LEVEMIR FLEXPEN) 100 unit/mL (3 mL) injection 05-17 00:00: 00 Yes [id number] 28U inject 28 Units under the skin every morning. E11.65 [facility] [facility] Insulin [place], Disposable, (PEN NEEDLE) 32 gauge x 5/32" Ndle 05-17 00:00: 00 Yes [id number] Use as directed daily E11.65 [facility] metformin ER 750 mg 24 hr tablet 05-17 00:00: 00 Yes [id number] 750mg Take 1 tablet by mouth daily with breakfast. [facility] Insulin Detemir (LEVEMIR FLEXPEN) 100 unit/mL (3 mL) injection 05-17 00:00: 00 Yes [id number] 28U inject 28 Units under the skin every morning. E11.65 [facility] Insulin [place], Disposable, (PEN NEEDLE) 32 gauge x 5/32" Ndle 05-17 00:00: 00 Yes [id number] Use as directed daily E11.65 [facility] Blood-Gluco se Meter (ACCU-CHEK GUIDE GLUCOSE METER) [facility] [place] 05-17 00:00: 00 Yes Use as directed to check blood sugars twice daily E11.65 [facility] blood sugar diagnostic (ACCU-CHEK GUIDE TEST STRIPS) strip 05-17 00:00: 00 Yes Use as directed to check blood sugars twice daily E11.65 [facility] Lancets (ACCU-CHEK SOFTCLIX LANCETS) [facility] [place] 05-17 00:00: 00 Yes Use as directed to check blood sugars twice daily E11.65 [facility] metformin ER 750 mg 24 hr tablet 05-17 00:00: 00 Yes [id number] 750mg Take 1 tablet by mouth daily with breakfast. [facility] Insulin Detemir (LEVEMIR FLEXPEN) 100 unit/mL (3 mL) injection 05-17 00:00: 00 Yes [id number] 28U inject 28 Units under the skin every morning. E11.65 [facility] Insulin [place], Disposable, (PEN NEEDLE) 32 gauge x 5/32" Ndle 05-17 00:00: 00 Yes [id number] Use as directed daily E11.65 [facility] Blood-Gluco se Meter (ACCU-CHEK GUIDE GLUCOSE METER) [facility] [place] 05-17 00:00: 00 Yes Use as directed to check blood sugars twice daily E11.65 [facility] blood sugar diagnostic (ACCU-CHEK GUIDE TEST STRIPS) strip 05-17 00:00: 00 Yes Use as directed to check blood sugars twice daily E11.65 [facility] Lancets (ACCU-CHEK SOFTCLIX LANCETS) [facility] [place] 05-17 00:00: 00 Yes Use as directed to check blood sugars twice daily E11.65 [facility] metformin ER 750 mg 24 hr tablet 05-17 00:00: 00 Yes [id number] 750mg Take 1 tablet by mouth daily with breakfast. [facility] Insulin Detemir (LEVEMIR FLEXPEN) 100 unit/mL (3 mL) injection 05-17 00:00: 00 Yes [id number] 28U inject 28 Units under the skin every morning. E11.65 [facility] Insulin [place], Disposable, (PEN NEEDLE) 32 gauge x 5/32" Ndle 05-17 00:00: 00 Yes [id number] Use as directed daily E11.65 [facility] Blood-Gluco se Meter (ACCU-CHEK GUIDE GLUCOSE METER) [facility] [place] 05-17 00:00: 00 Yes Use as directed to check blood sugars twice daily E11.65 [facility] blood sugar diagnostic (ACCU-CHEK GUIDE TEST STRIPS) strip 05-17 00:00: 00 Yes Use as directed to check blood sugars twice daily E11.65 [facility] Lancets (ACCU-CHEK SOFTCLIX LANCETS) [facility] [place] 05-17 00:00: 00 Yes Use as directed to check blood sugars twice daily E11.65 [facility] metformin ER 750 mg 24 hr tablet 05-17 00:00: 00 Yes [id number] 750mg Take 1 tablet by mouth daily with breakfast. [facility] Insulin Detemir (LEVEMIR FLEXPEN) 100 unit/mL (3 mL) injection 05-17 00:00: 00 Yes [id number] 28U inject 28 Units under the skin every morning. E11.65 [facility] Ins[facility] [place], Disposable, (PEN NEEDLE) 32 gauge x 5/32" Ndle 15 00:00: 00 Yes [id number] Use as directed daily E11.65 [facility] Blood-Gluco se Meter (ACCU-CHEK GUIDE GLUCOSE METER) [facility] Yes Use as directed to check blood sugars twice daily E11.65 [facility] blood sugar diagnostic (ACCU-CHEK GUIDE TEST STRIPS) strip 05-17 00:00: 00 Yes Use as directed to check blood sugars twice daily E11.65 [facility] Lanc[facility] (ACCU-CHEK SOFTCLIX LANCETS) [facility] 00:00: 00 Yes Use as directed to check blood sugars twice daily E11.65 [facility] Insulin [place], Disposable, (PEN NEEDLE) 32 gauge x 5/32" Ndle 05-17 00:00: 00 Yes [id number] Use as directed daily E11.65 [facility] Blood-Gluco se Meter (ACCU-CHEK GUIDE GLUCOSE METER) [facility] [place] 05-17 00:00: 00 Yes Use as directed to check blood sugars twice daily E11.65 [facility] blood sugar diagnostic (ACCU-CHEK GUIDE TEST STRIPS) strip 05-17 00:00: 00 Yes Use as directed to check blood sugars twice daily E11.65 [facility] Lancets (ACCU-CHEK SOFTCLIX LANCETS) [facility] 8-15 00:00: 00 Yes Use as directed to check blood sugars twice daily E11.65 [facility] Insulin [place], Disposable, (PEN NEEDLE) 32 gauge x 5/32" Ndle 815 00:00: 00 Yes [id number] Use as directed daily E11.65 [facility] Blood-Gluco se Meter (ACCU-CHEK GUIDE GLUCOSE METER) [facility] 0 8-15 00:00: 00 Yes Use as directed to check blood sugars twice daily E11.65 [facility] blood sugar diagnostic (ACCU-CHEK GUIDE TEST STRIPS) strip 15 00:00: 00 Yes Use as directed to check blood sugars twice daily E11.65 [facility] Lancets (ACCU-CHEK SOFTCLIX LANCETS) [facility] [place] 8-15 00:00: 00 Yes Use as directed to check blood sugars twice daily E11.65 [facility] Insulin [place], Disposable, (PEN NEEDLE) 32 gauge x 5/32" Ndle 05-17 00:00: 00 Yes [id number] Use as directed daily E11.65 [facility] Blood-Gluco se Meter (ACCU-CHEK GUIDE GLUCOSE METER) [facility] [place] 05-17 00:00: 00 Yes Use as directed to check blood sugars twice daily E11.65 [facility] blood sugar diagnostic (ACCU-CHEK GUIDE TEST STRIPS) strip 05-17 00:00: 00 Yes Use as directed to check blood sugars twice daily E11.65 [facility] Lancets (ACCU-CHEK SOFTCLIX LANCETS) [facility] [place] 15 00:00: 00 Yes Use as directed to check blood sugars twice daily E11.65 [facility] Insulin [place], Disposable, (PEN NEEDLE) 32 gauge x 5/32" Ndle 15 00:00: 00 Yes [id number] Use as directed daily E11.65 [facility] Blood-Gluco se Meter (ACCU-CHEK GUIDE GLUCOSE METER) [facility] [place] -15 00:00: 00 Yes Use as directed to check blood sugars twice daily E11.65 [facility] blood sugar diagnostic (ACCU-CHEK GUIDE TEST STRIPS) strip 15 00:00: 00 Yes Use as directed to check blood sugars twice daily E11.65 [facility] Lancets (ACCU-CHEK SOFTCLIX LANCETS) [facility] [place] -15 00:00: 00 Yes Use as directed to check blood sugars twice daily E11.65 [facility] Insulin [place], Disposable, (PEN NEEDLE) 32 gauge x 5/32" Ndle 8-15 00:00: 00 Yes [id number] Use as directed daily E11.65 [facility] Blood-Gluco se Meter (ACCU-CHEK GUIDE GLUCOSE METER) Misc 0 8-15 00:00: 00 Yes Use as directed to check blood sugars twice daily E11.65 [facility] blood sugar diagnostic (ACCU-CHEK GUIDE TEST STRIPS) strip 8-15 00:00: 00 Yes Use as directed to check blood sugars twice daily E11.65 [facility] Lancets (ACCU-CHEK SOFTCLIX LANCETS) [facility]:00: 00 Yes Use as directed to check blood sugars twice daily E11.65 [facility] Insulin [place], Disposable, (PEN NEEDLE) 32 gauge x 5/32" Ndle 8-15 00:00: 00 Yes [id number] Use as directed daily E11.65 [facility] Blood-Gluco se Meter (ACCU-CHEK GUIDE GLUCOSE METER) [facility] [place] 0 8-15 00:00: 00 Yes Use as directed to check blood sugars twice daily E11.65 [facility] blood sugar diagnostic (ACCU-CHEK GUIDE TEST STRIPS) strip 0 8-15 00:00: 00 Yes Use as directed to check blood sugars twice daily E11.65 [facility] Lancets (ACCU-CHEK SOFTCLIX LANCETS) [facility] [place] 0 8-15 00:00: 00 Yes Use as directed to check blood sugars twice daily E11.65 [facility] Insulin [place], Disposable, (PEN NEEDLE) 32 gauge x 5/32" Ndle 8-15 00:00: 00 Yes [id number] Use as directed daily E11.65 [facility] Blood-Gluco se Meter (ACCU-CHEK GUIDE GLUCOSE METER) Misc 0 8-15 00:00: 00 Yes Use as directed to check blood sugars twice daily E11.65 [facility] blood sugar diagnostic (ACCU-CHEK GUIDE TEST STRIPS) strip 0 8-15 00:00: 00 Yes Use as directed to check blood sugars twice daily E11.65 [facility] Lancets (ACCU-CHEK SOFTCLIX LANCETS) Misc 8-15 00:00: 00 Yes Use as directed to check blood sugars twice daily E11.65 [facility] Insulin [place], Disposable, (PEN NEEDLE) 32 gauge x 5/32" Ndle 8-15 00:00: 00 Yes [id number] Use as directed daily E11.65 [facility] Blood-Gluco se Meter (ACCU-CHEK GUIDE GLUCOSE METER) [facility] [place] -15 00:00: 00 Yes Use as directed to check blood sugars twice daily E11.65 [facility] blood sugar diagnostic (ACCU-CHEK GUIDE TEST STRIPS) strip -15 00:00: 00 Yes Use as directed to check blood sugars twice daily E11.65 [facility] Lancets (ACCU-CHEK SOFTCLIX LANCETS) [facility] 00:00: 00 Yes Use as directed to check blood sugars twice daily E11.65 [facility] Insulin [place], Disposable, (PEN NEEDLE) 32 gauge x 5/32" Ndle 15 00:00: 00 Yes [id number] Use as directed daily E11.65 [facility] Blood-Gluco se Meter (ACCU-CHEK GUIDE GLUCOSE METER) [facility] [place] 8-15 00:00: 00 Yes Use as directed to check blood sugars twice daily E11.65 [facility] blood sugar diagnostic (ACCU-CHEK GUIDE TEST STRIPS) strip 0 8-15 00:00: 00 Yes Use as directed to check blood sugars twice daily E11.65 [facility] Lancets (ACCU-CHEK SOFTCLIX LANCETS) Misc 8-15 00:00: 00 Yes Use as directed to check blood sugars twice daily E11.65 [facility] Insulin [place], Disposable, (PEN NEEDLE) 32 gauge x 5/32" Ndle 05-17 00:00: 00 Yes [id number] Use as directed daily E11.65 [facility] Blood-Gluco se Meter (ACCU-CHEK GUIDE GLUCOSE METER) [facility] 05-17 00:00: 00 Yes Use as directed to check blood sugars twice daily E11.65 [facility] blood sugar diagnostic (ACCU-CHEK GUIDE TEST STRIPS) strip 05-17 00:00: 00 Yes Use as directed to check blood sugars twice daily E11.65 [facility] Lancets (ACCU-CHEK SOFTCLIX LANCETS) [facility] 05-17 00:00: 00 Yes Use as directed to check blood sugars twice daily E11.65 [facility] Insulin [place], Disposable, (PEN NEEDLE) 32 gauge x /" Pending Sale To [facility] 05-17 00:00: 00 Yes [id number] Use as directed daily E11.65 [facility] Blood-Gluco se Meter (ACCU-CHEK GUIDE GLUCOSE METER) [facility] [place] 05-17 00:00: 00 Yes Use as directed to check blood sugars twice daily E11.65 [facility] blood sugar diagnostic (ACCU-CHEK GUIDE TEST STRIPS) strip 05-17 00:00: 00 Yes Use as directed to check blood sugars twice daily E11.65 [facility] Lancets (ACCU-CHEK SOFTCLIX LANCETS) [facility] [place] 05-17 00:00: 00 Yes Use as directed to check blood sugars twice daily E11.65 [facility] metformin ER 750 mg 24 hr tablet 05-17 00:00: 00 09-20 00:00 :00 No [id number] 750mg Take 1 tablet by mouth daily with breakfast. [facility] Insulin Detemir (LEVEMIR FLEXPEN) 100 unit/mL (3 mL) injection 05-17 00:00: 00 09-20 00:00 :00 No [id number] 28U inject 28 Units under the skin every morning. E11.65 [facility] metformin ER 750 mg 24 hr tablet 2023-0 8-15 00:00: 00 09-20 00:00 :00 No [id number] 750mg Take 1 tablet by mouth daily with breakfast. [facility] Insulin Detemir (LEVEMIR FLEXPEN) 100 unit/mL (3 mL) injection 15 00:00: 00 09-20 00:00 :00 No [id number] 28U inject 28 Units under the skin every morning. E11.65 [facility] ONETOUCH VERIO TEST STRIPS strip 15 00:00: 00 05-17 00:00 :00 No [id number] Use as directed BID E11.65 [facility] ONE TOUCH DELICA 33 gauge Misc 15 00:00: 00 05-17 00:00 :00 No [id number] Use as directed BID E11.65 [facility] ONETOUCH VERIO REFLECT METER Misc 15 00:00: 00 05-17 00:00 :00 No [id number] Use as directed BID E11.65 [facility] ONETOUCH VERIO TEST STRIPS strip 15 00:00: 00 05-17 00:00 :00 No [id number] Use as directed BID E11.65 [facility] ONE TOUCH DELICA 33 gauge Misc 15 00:00: 00 05-17 00:00 :00 No [id number] Use as directed BID E11.65 [facility] ONETOUCH VERIO REFLECT METER Misc 15 00:00: 00 05-17 00:00 :00 No [id number] Use as directed BID E11.65 [facility] ONETOUCH VERIO TEST STRIPS strip 0 -15 00:00: 00 05-17 00:00 :00 No [id number] Use as directed BID E11.65 [facility] ONE TOUCH DELICA 33 gauge Misc 0 8-15 00:00: 00 05-17 00:00 :00 No [id number] Use as directed BID E11.65 [facility] ONETOUCH VERIO REFLECT METER Misc 05-17 00:00: 00 05-17 00:00 :00 No [id number] Use as directed BID E11.65 [facility] HYDROcodone -acetaminop hen 7.5-325 mg per tablet 05-16 00:00: 00 06-16 04:59 :00 No [id number] 1{tbl} Take 1 tablet by mouth every 6 (six) hours as needed for Pain for up to 30 days. Indication s: chronic pain [facility] HYDROcodone -acetaminop hen 7.5-325 mg per tablet 05-16 00:00: 00 06-16 04:59 :00 No [id number] 1{tbl} Take 1 tablet by mouth every 6 (six) hours as needed for Pain for up to 30 days. Indication s: chronic pain [facility] HYDROcodone -acetaminop hen 7.5-325 mg per tablet 05-16 00:00: 00 06-16 04:59 :00 No [id number] 1{tbl} Take 1 tablet by mouth every 6 (six) hours as needed for Pain for up to 30 days. Indication s: chronic pain [facility] HYDROcodone -acetaminop hen 7.5-325 mg per tablet 05-16 00:00: 00 06-16 04:59 :00 No [id number] 1{tbl} Take 1 tablet by mouth every 6 (six) hours as needed for Pain for up to 30 days. Indication s: chronic pain [facility] ciprofloxac in HCl (CIPRO) 500 mg tablet 05-05 00:00: 00 Yes [id number] 500mg Take 1 tablet by mouth every 12 (twelve) hours. [facility] insulin detemir U-100 (LEVEMIR U-100 INSULIN) 100 unit/mL injection 05-05 00:00: 00 Yes [id number] 34U inject 34 Units under the skin at bedtime. [facility] ciprofloxac in HCl (CIPRO) 500 mg tablet 2022-0 8-03 00:00: 00 Yes [id number] 500mg Take 1 tablet by mouth every 12 (twelve) hours. [facility] insulin detemir U-100 (LEVEMIR U-100 INSULIN) 100 unit/mL injection 2022-0 8-03 00:00: 00 Yes [id number] 34U inject 34 Units under the skin at bedtime. [facility] ciprofloxac in HCl (CIPRO) 500 mg tablet 2022-0 8-03 00:00: 00 Yes [id number] 500mg Take 1 tablet by mouth every 12 (twelve) hours. [facility] ciprofloxac in HCl (CIPRO) 500 mg tablet 2022-0 8-03 00:00: 00 Yes [id number] 500mg Take 1 tablet by mouth every 12 (twelve) hours. [facility] ciprofloxac in HCl (CIPRO) 500 mg tablet 2022-0 8-03 00:00: 00 Yes [id number] 500mg Take 1 tablet by mouth every 12 (twelve) hours. [facility] ciprofloxac in HCl (CIPRO) 500 mg tablet 2022-0 8-03 00:00: 00 Yes [id number] 500mg Take 1 tablet by mouth every 12 (twelve) hours. [facility] ciprofloxac in HCl (CIPRO) 500 mg tablet 2022-0 8-03 00:00: 00 Yes [id number] 500mg Take 1 tablet by mouth every 12 (twelve) hours. [facility] ciprofloxac in HCl (CIPRO) 500 mg tablet 2022-0 8-03 00:00: 00 Yes [id number] 500mg Take 1 tablet by mouth every 12 (twelve) hours. [facility] ciprofloxac in HCl (CIPRO) 500 mg tablet 2022-0 8-03 00:00: 00 Yes [id number] 500mg Take 1 tablet by mouth every 12 (twelve) hours. [facility] ciprofloxac in HCl (CIPRO) 500 mg tablet 3-0 8-03 00:00: 00 Yes [id number] 500mg Take 1 tablet by mouth every 12 (twelve) hours. [facility] ciprofloxac in HCl (CIPRO) 500 mg tablet 2023-0 8-03 00:00: 00 Yes [id number] 500mg Take 1 tablet by mouth every 12 (twelve) hours. [facility] ciprofloxac in HCl (CIPRO) 500 mg tablet 2023-0 8-03 00:00: 00 Yes [id number] 500mg Take 1 tablet by mouth every 12 (twelve) hours. [facility] ciprofloxac in HCl (CIPRO) 500 mg tablet 2023-0 8-03 00:00: 00 Yes [id number] 500mg Take 1 tablet by mouth every 12 (twelve) hours. [facility] ciprofloxac in HCl (CIPRO) 500 mg tablet 2023-0 8-03 00:00: 00 Yes [id number] 500mg Take 1 tablet by mouth every 12 (twelve) hours. [facility] ciprofloxac in HCl (CIPRO) 500 mg tablet 2023-0 8-03 00:00: 00 Yes [id number] 500mg Take 1 tablet by mouth every 12 (twelve) hours. [facility] ciprofloxac in HCl (CIPRO) 500 mg tablet 3-0 8-03 00:00: 00 Yes [id number] 500mg Take 1 tablet by mouth every 12 (twelve) hours. [facility] ciprofloxac in HCl (CIPRO) 500 mg tablet 3-0 8-03 00:00: 00 Yes [id number] 500mg Take 1 tablet by mouth every 12 (twelve) hours. [facility] ciprofloxac in HCl (CIPRO) 500 mg tablet 2023-0 8-03 00:00: 00 Yes [id number] 500mg Take 1 tablet by mouth every 12 (twelve) hours. [facility] ciprofloxac in HCl (CIPRO) 500 mg tablet 2023-0 8-03 00:00: 00 Yes [id number] 500mg Take 1 tablet by mouth every 12 (twelve) hours. [facility] ciprofloxac in HCl (CIPRO) 500 mg tablet 2023-0 8-03 00:00: 00 20211-14 00:00 :00 No [id number] 500mg Take 1 tablet by mouth every 12 (twelve) hours. [facility] ciprofloxac in HCl (CIPRO) 500 mg tablet 05-05 00:00: 00 11-14 00:00 :00 No [id number] 500mg Take 1 tablet by mouth every 12 (twelve) hours. [facility] insulin detemir U-100 (LEVEMIR U-100 INSULIN) 100 unit/mL injection 05-05 00:00: 00 05-17 00:00 :00 No [id number] 34U inject 34 Units under the skin at bedtime. [facility] insulin detemir U-100 (LEVEMIR U-100 INSULIN) 100 unit/mL injection 05-05 00:00: 00 05-17 00:00 :00 No [id number] 34U inject 34 Units under the skin at bedtime. [facility] insulin detemir U-100 (LEVEMIR U-100 INSULIN) 100 unit/mL injection 04-20 00:00: 00 Yes [id number] 34U inject 34 Units under the skin at bedtime. [facility] ciprofloxac in HCl (CIPRO) 500 mg tablet 04-20 00:00: 00 Yes [id number] 500mg Take 1 tablet by mouth every 12 (twelve) hours. [facility] insulin detemir U-100 (LEVEMIR U-100 INSULIN) 100 unit/mL injection 04-20 00:00: 00 Yes [id number] 34U inject 34 Units under the skin at bedtime. [facility] ciprofloxac in HCl (CIPRO) 500 mg tablet 04-20 00:00: 00 Yes [id number] 500mg Take 1 tablet by mouth every 12 (twelve) hours. [facility] insulin detemir U-100 (LEVEMIR U-100 INSULIN) 100 unit/mL injection 04-20 00:00: 00 Yes [id number] 34U inject 34 Units under the skin at bedtime. [facility] ciprofloxac in HCl (CIPRO) 500 mg tablet 04-20 00:00: 00 Yes [id number] 500mg Take 1 tablet by mouth every 12 (twelve) hours. [facility] insulin detemir U-100 (LEVEMIR U-100 INSULIN) 100 unit/mL injection 04-20 00:00: 00 05-05 00:00 :00 No [id number] 34U inject 34 Units under the skin at bedtime. [facility] ciprofloxac in HCl (CIPRO) 500 mg tablet 04-20 00:00: 00 05-05 00:00 :00 No [id number] 500mg Take 1 tablet by mouth every 12 (twelve) hours. [facility] ESCITALOPRA M OXALATE 5 mg tablet 04-12 00:00: 00 Yes [id number] 5mg TAKE 1 TABLET BY MOUTH IN THE MORNING. [facility] LISINOPRIL 20 mg tablet 04-12 00:00: 00 Yes [id number] 20mg TAKE 1 TABLET BY MOUTH DAILY. [facility] ESCITALOPRA M OXALATE 5 mg tablet 04-12 00:00: 00 Yes [id number] 5mg TAKE 1 TABLET BY MOUTH IN THE MORNING. [facility] LISINOPRIL 20 mg tablet 04-12 00:00: 00 Yes [id number] 20mg TAKE 1 TABLET BY MOUTH DAILY. [facility] ESCITALOPRA M OXALATE 5 mg tablet 04-12 00:00: 00 Yes [id number] 5mg TAKE 1 TABLET BY MOUTH IN THE MORNING. [facility] LISINOPRIL 20 mg tablet 0 04-12 00:00: 00 Yes [id number] 20mg TAKE 1 TABLET BY MOUTH DAILY. [facility] ESCITALOPRA M OXALATE 5 mg tablet 04-12 00:00: 00 Yes [id number] 5mg TAKE 1 TABLET BY MOUTH IN THE MORNING. [facility] LISINOPRIL 20 mg tablet 2022-0 04-12 00:00: 00 Yes [id number] 20mg TAKE 1 TABLET BY MOUTH DAILY. [facility] ESCITALOPRA M OXALATE 5 mg tablet 2022-0 7-11 00:00: 00 Yes [id number] 5mg TAKE 1 TABLET BY MOUTH IN THE MORNING. [facility] LISINOPRIL 20 mg tablet 2022-0 7-11 00:00: 00 Yes [id number] 20mg TAKE 1 TABLET BY MOUTH DAILY. [facility] ESCITALOPRA M OXALATE 5 mg tablet 2022-0 7-11 00:00: 00 Yes [id number] 5mg TAKE 1 TABLET BY MOUTH IN THE MORNING. [facility] LISINOPRIL 20 mg tablet 3-0 7-11 00:00: 00 Yes [id number] 20mg TAKE 1 TABLET BY MOUTH DAILY. [facility] ESCITALOPRA M OXALATE 5 mg tablet 2022-0 7-11 00:00: 00 Yes [id number] 5mg TAKE 1 TABLET BY MOUTH IN THE MORNING. [facility] LISINOPRIL 20 mg tablet 2022-0 7-11 00:00: 00 Yes [id number] 20mg TAKE 1 TABLET BY MOUTH DAILY. [facility] ESCITALOPRA M OXALATE 5 mg tablet 2022-0 7-11 00:00: 00 Yes [id number] 5mg TAKE 1 TABLET BY MOUTH IN THE MORNING. [facility] LISINOPRIL 20 mg tablet 3-0 -11 00:00: 00 Yes [id number] 20mg TAKE 1 TABLET BY MOUTH DAILY. [facility] ESCITALOPRA M OXALATE 5 mg tablet 2022-0 7-11 00:00: 00 Yes [id number] 5mg TAKE 1 TABLET BY MOUTH IN THE MORNING. [facility] LISINOPRIL 20 mg tablet 3-0 7-11 00:00: 00 Yes [id number] 20mg TAKE 1 TABLET BY MOUTH DAILY. [facility] ESCITALOPRA M OXALATE 5 mg tablet 2022-0 7-11 00:00: 00 Yes [id number] 5mg TAKE 1 TABLET BY MOUTH IN THE MORNING. [facility] LISINOPRIL 20 mg tablet 3-0 7-11 00:00: 00 Yes [id number] 20mg TAKE 1 TABLET BY MOUTH DAILY. [facility] ESCITALOPRA M OXALATE 5 mg tablet 0 7-11 00:00: 00 Yes [id number] 5mg TAKE 1 TABLET BY MOUTH IN THE MORNING. [facility] LISINOPRIL 20 mg tablet 0 7-11 00:00: 00 Yes [id number] 20mg TAKE 1 TABLET BY MOUTH DAILY. [facility] ESCITALOPRA M OXALATE 5 mg tablet 0 7-11 00:00: 00 Yes [id number] 5mg TAKE 1 TABLET BY MOUTH IN THE MORNING. [facility] LISINOPRIL 20 mg tablet 0 7-11 00:00: 00 Yes [id number] 20mg TAKE 1 TABLET BY MOUTH DAILY. [facility] ESCITALOPRA M OXALATE 5 mg tablet 04-12 00:00: 00 Yes [id number] 5mg TAKE 1 TABLET BY MOUTH IN THE MORNING. [facility] LISINOPRIL 20 mg tablet 0 04-12 00:00: 00 Yes [id number] 20mg TAKE 1 TABLET BY MOUTH DAILY. [facility] ESCITALOPRA M OXALATE 5 mg tablet 11 00:00: 00 07-14 00:00 :00 No [id number] 5mg TAKE 1 TABLET BY MOUTH IN THE MORNING. [facility] LISINOPRIL 20 mg tablet 0 11 00:00: 00 07-14 00:00 :00 No [id number] 20mg TAKE 1 TABLET BY MOUTH DAILY. [facility] insulin detemir U-100 (LEVEMIR U-100 INSULIN) 100 unit/mL injection 03-10 00:00: 00 Yes [id number] [id number] inject 34 Units under the skin at bedtime. [facility] insulin detemir U-100 (LEVEMIR U-100 INSULIN) 100 unit/mL injection 03-10 00:00: 00 Yes [id number] [id number] inject 34 Units under the skin at bedtime. [facility] insulin detemir U-100 (LEVEMIR U-100 INSULIN) 100 unit/mL injection 03-10 00:00: 00 Yes [id number] [id number] inject 34 Units under the skin at bedtime. [facility] insulin detemir U-100 (LEVEMIR U-100 INSULIN) 100 unit/mL injection 03-10 00:00: 00 Yes [id number] [id number] inject 34 Units under the skin at bedtime. [facility] insulin detemir U-100 (LEVEMIR U-100 INSULIN) 100 unit/mL injection 03-10 00:00: 00 Yes [id number] [id number] inject 34 Units under the skin at bedtime. [facility] insulin detemir U-100 (LEVEMIR U-100 INSULIN) 100 unit/mL injection 03-10 00:00: 00 Yes [id number] [id number] inject 34 Units under the skin at bedtime. [facility] insulin detemir U-100 (LEVEMIR U-100 INSULIN) 100 unit/mL injection 03-10 00:00: 00 Yes [id number] [id number] inject 34 Units under the skin at bedtime. [facility] insulin detemir U-100 (LEVEMIR U-100 INSULIN) 100 unit/mL injection 03-10 00:00: 00 Yes [id number] [id number] inject 34 Units under the skin at bedtime. [facility] insulin detemir U-100 (LEVEMIR U-100 INSULIN) 100 unit/mL injection 03-10 00:00: 00 04-20 00:00 :00 No [id number] [id number] inject 34 Units under the skin at bedtime. [facility] insulin detemir U-100 (LEVEMIR U-100 INSULIN) 100 unit/mL injection 03-10 00:00: 00 04-20 00:00 :00 No [id number] [id number] inject 34 Units under the skin at bedtime. [facility] insulin detemir U-100 (LEVEMIR U-100 INSULIN) 100 unit/mL injection 03-10 00:00: 00 04-20 00:00 :00 No [id number] [id number] inject 34 Units under the skin at bedtime. [facility] HYDROcodone -ibuprofen 7.5-200 mg per tablet 0 605 00:00: 00 Yes 2745 TAKE 1 TABLET BY MOUTH EVERY SIX HOURS NEEDED FOR PAIN Indication s: chronic pain [facility] HYDROcodone -ibuprofen 7.5-200 mg per tablet 0 05 00:00: 00 Yes 2745 TAKE 1 TABLET BY MOUTH EVERY SIX HOURS NEEDED FOR PAIN Indication s: chronic pain [facility] HYDROcodone -ibuprofen 7.5-200 mg per tablet 0 05 00:00: 00 Yes 2745 TAKE 1 TABLET BY MOUTH EVERY SIX HOURS NEEDED FOR PAIN Indication s: chronic pain [facility] HYDROcodone -ibuprofen 7.5-200 mg per tablet 0 05 00:00: 00 Yes 2745 TAKE 1 TABLET BY MOUTH EVERY SIX HOURS NEEDED FOR PAIN Indication s: chronic pain [facility] HYDROcodone -ibuprofen 7.5-200 mg per tablet 0 05 00:00: 00 Yes 2745 TAKE 1 TABLET BY MOUTH EVERY SIX HOURS NEEDED FOR PAIN Indication s: chronic pain [facility] HYDROcodone -ibuprofen 7.5-200 mg per tablet 0 05 00:00: 00 Yes 2745 TAKE 1 TABLET BY MOUTH EVERY SIX HOURS NEEDED FOR PAIN Indication s: chronic pain [facility] HYDROcodone -ibuprofen 7.5-200 mg per tablet 0 05 00:00: 00 Yes 2745 TAKE 1 TABLET BY MOUTH EVERY SIX HOURS NEEDED FOR PAIN Indication s: chronic pain [facility] HYDROcodone -ibuprofen 7.5-200 mg per tablet 0 605 00:00: 00 Yes 2745 TAKE 1 TABLET BY MOUTH EVERY SIX HOURS NEEDED FOR PAIN Indication s: chronic pain [facility] HYDROcodone -ibuprofen 7.5-200 mg per tablet 0 605 00:00: 00 Yes 2745 TAKE 1 TABLET BY MOUTH EVERY SIX HOURS NEEDED FOR PAIN Indication s: chronic pain [facility] HYDROcodone -ibuprofen 7.5-200 mg per tablet 0 6-05 00:00: 00 Yes 2745 TAKE 1 TABLET BY MOUTH EVERY SIX HOURS NEEDED FOR PAIN Indication s: chronic pain [facility] HYDROcodone -ibuprofen 7.5-200 mg per tablet 0 605 00:00: 00 Yes 2745 TAKE 1 TABLET BY MOUTH EVERY SIX HOURS NEEDED FOR PAIN Indication s: chronic pain [facility] HYDROcodone -ibuprofen 7.5-200 mg per tablet 2022-0 605 00:00: 00 Yes 2745 TAKE 1 TABLET BY MOUTH EVERY SIX HOURS NEEDED FOR PAIN Indication s: chronic pain [facility] HYDROcodone -ibuprofen 7.5-200 mg per tablet 2022-0 605 00:00: 00 Yes 2745 TAKE 1 TABLET BY MOUTH EVERY SIX HOURS NEEDED FOR PAIN Indication s: chronic pain [facility] HYDROcodone -ibuprofen 7.5-200 mg per tablet 0 05 00:00: 00 Yes 2745 TAKE 1 TABLET BY MOUTH EVERY SIX HOURS NEEDED FOR PAIN Indication s: chronic pain [facility] HYDROcodone -ibuprofen 7.5-200 mg per tablet 2022-0 05 00:00: 00 Yes 2745 TAKE 1 TABLET BY MOUTH EVERY SIX HOURS NEEDED FOR PAIN Indication s: chronic pain [facility] HYDROcodone -ibuprofen 7.5-200 mg per tablet 0 05 00:00: 00 Yes 2745 TAKE 1 TABLET BY MOUTH EVERY SIX HOURS NEEDED FOR PAIN Indication s: chronic pain [facility] HYDROcodone -ibuprofen 7.5-200 mg per tablet 0 05 00:00: 00 Yes 2745 TAKE 1 TABLET BY MOUTH EVERY SIX HOURS NEEDED FOR PAIN Indication s: chronic pain [facility] HYDROcodone -ibuprofen 7.5-200 mg per tablet 2022-0 605 00:00: 00 Yes 2745 TAKE 1 TABLET BY MOUTH EVERY SIX HOURS NEEDED FOR PAIN Indication s: chronic pain [facility] HYDROcodone -ibuprofen 7.5-200 mg per tablet 2022-0 6-05 00:00: 00 Yes 2745 TAKE 1 TABLET BY MOUTH EVERY SIX HOURS NEEDED FOR PAIN Indication s: chronic pain [facility] HYDROcodone -ibuprofen 7.5-200 mg per tablet 2022-0 6-05 00:00: 00 Yes 2745 TAKE 1 TABLET BY MOUTH EVERY SIX HOURS NEEDED FOR PAIN Indication s: chronic pain [facility] HYDROcodone -ibuprofen 7.5-200 mg per tablet 2022-0 6-05 00:00: 00 Yes 2745 TAKE 1 TABLET BY MOUTH EVERY SIX HOURS NEEDED FOR PAIN Indication s: chronic pain [facility] HYDROcodone -ibuprofen 7.5-200 mg per tablet 2022-0 6-05 00:00: 00 Yes 2745 TAKE 1 TABLET BY MOUTH EVERY SIX HOURS NEEDED FOR PAIN Indication s: chronic pain [facility] HYDROcodone -ibuprofen 7.5-200 mg per tablet 2022-0 6-05 00:00: 00 Yes 2745 TAKE 1 TABLET BY MOUTH EVERY SIX HOURS NEEDED FOR PAIN Indication s: chronic pain [facility] HYDROcodone -ibuprofen 7.5-200 mg per tablet 2022-0 6-05 00:00: 00 Yes 2745 TAKE 1 TABLET BY MOUTH EVERY SIX HOURS NEEDED FOR PAIN [facility]: [facility] 7.5-200 mg per tablet 2022-0 6-05 00:00: 00 09-21 00:00 :00 No 2745 TAKE 1 TABLET BY MOUTH EVERY SIX HOURS NEEDED FOR PAIN Indication [facility]: [facility] -[facility]fen 7.5-200 mg per tablet 2022-0 6-05 00:00: 00 09-21 00:00 :00 No 2745 TAKE 1 TABLET BY MOUTH EVERY SIX HOURS NEEDED FOR PAIN Indication s: chronic pain [facility] HYDROcodone -ibuprofen 7.5-200 mg per tablet 2022-0 6-05 00:00: 00 09-21 00:00 :00 No 2745 TAKE 1 TABLET BY MOUTH EVERY SIX HOURS NEEDED FOR PAIN Indication s: chronic pain [facility] HYDROcodone -ibuprofen 7.5-200 mg per tablet 2022-0 6-05 00:00: 00 09-21 00:00 :00 No 2745 TAKE 1 TABLET BY MOUTH EVERY SIX HOURS NEEDED FOR PAIN Indication s: chronic pain [facility] nitroglycer in 0.3 mg sublingual tablet 2022-0 525 00:00: [id number] 1 tablet under the tongue every 5 (five) minutes as needed for Chest pain. [facility] nitroglycer in 0.3 mg sublingual tablet 2022-0 5-25 00:00: [id number] 1 tablet under the tongue every 5 (five) minutes as needed for Chest pain. [facility] nitroglycer in 0.3 mg sublingual tablet 2022-0 5-25 00:00: [id number] 1 tablet under the tongue every 5 (five) minutes as needed for Chest pain. [facility] nitroglycer in 0.3 mg sublingual tablet 2022-0 5-25 00:00: [id number] 1 tablet under the tongue every 5 (five) minutes as needed for Chest pain. [facility] nitroglycer in 0.3 mg sublingual tablet 2022-0 525 00:00: [id number] 1 tablet under the tongue every 5 (five) minutes as needed for Chest pain. [facility] nitroglycer in 0.3 mg sublingual tablet 2022-0 525 00:00: [id number] 1 tablet under the tongue every 5 (five) minutes as needed for Chest pain. [facility] nitroglycer in 0.3 mg sublingual tablet 2022-0 5-25 00:00: [id number] 1 tablet under the tongue every 5 (five) minutes as needed for Chest pain. [facility] nitroglycer in 0.3 mg sublingual tablet 2022-0 5-25 00:00: [id number] 1 tablet under the tongue every 5 (five) minutes as needed for Chest pain. [facility] nitroglycer in 0.3 mg sublingual tablet 3-0 5-25 00:00: [id number] 1 tablet under the tongue every 5 (five) minutes as needed for Chest pain. [facility] nitroglycer in 0.3 mg sublingual tablet 3-0 525 00:00: [id number] 1 tablet under the tongue every 5 (five) minutes as needed for Chest pain. [facility] nitroglycer in 0.3 mg sublingual tablet 2022-0 5-25 00:00: [id number] 1 tablet under the tongue every 5 (five) minutes as needed for Chest pain. [facility] nitroglycer in 0.3 mg sublingual tablet 3-0 5-25 00:00: [id number] 1 tablet under the tongue every 5 (five) minutes as needed for Chest pain. [facility] nitroglycer in 0.3 mg sublingual tablet 2022-0 5-25 00:00: [id number] 1 tablet under the tongue every 5 (five) minutes as needed for Chest pain. [facility] nitroglycer in 0.3 mg sublingual tablet 2022-0 5-25 00:00: [id number] 1 tablet under the tongue every 5 (five) minutes as needed for Chest pain. [facility] nitroglycer in 0.3 mg sublingual tablet 2022-0 525 00:00: [id number] 1 tablet under the tongue every 5 (five) minutes as needed for Chest pain. [facility] nitroglycer in 0.3 mg sublingual tablet 3-0 5-25 00:00: [id number] 1 tablet under the tongue every 5 (five) minutes as needed for Chest pain. [facility] nitroglycer in 0.3 mg sublingual tablet 3-0 5-25 00:00: [id number] 1 tablet under the tongue every 5 (five) minutes as needed for Chest pain. [facility] nitroglycer in 0.3 mg sublingual tablet 3-0 5-25 00:00: [id number] 1 tablet under the tongue every 5 (five) minutes as needed for Chest pain. [facility] nitroglycer in 0.3 mg sublingual tablet 2023-0 5-25 00:00: [id number] 1 tablet under the tongue every 5 (five) minutes as needed for Chest pain. [facility] nitroglycer in 0.3 mg sublingual tablet 0 02-24 00:00: [id number] 1 tablet under the tongue every 5 (five) minutes as needed for Chest pain. [facility] nitroglycer in 0.3 mg sublingual tablet 0 02-24 00:00: [id number] 1 tablet under the tongue every 5 (five) minutes as needed for Chest pain. [facility] nitroglycer in 0.3 mg sublingual tablet 0 02-24 00:00: [id number] 1 tablet under the tongue every 5 (five) minutes as needed for Chest pain. [facility] nitroglycer in 0.3 mg sublingual tablet 0 02-24 00:00: [id number] 1 tablet under the tongue every 5 (five) minutes as needed for Chest pain. [facility] nitroglycer in 0.3 mg sublingual tablet 0 02-24 00:00: [id number] 1 tablet under the tongue every 5 (five) minutes as needed for Chest pain. [facility] nitroglycer in 0.3 mg sublingual tablet 0 02-24 00:00: [id number] 1 tablet under the tongue every 5 (five) minutes as needed for Chest pain. [facility] nitroglycer in 0.3 mg sublingual tablet 0 02-24 00:00: [id number] 1 tablet under the tongue every 5 (five) minutes as needed for Chest pain. [facility] nitroglycer in 0.3 mg sublingual tablet 0 02-24 00:00: 00 09-21 00:00 :[id number] 1 tablet under the tongue every 5 (five) minutes as needed for Chest pain. [facility] nitroglycer in 0.3 mg sublingual tablet 02-24 00:00: 00 09-21 00:00 :[id number] 1 tablet under the tongue every 5 (five) minutes as needed for Chest pain. [facility] nitroglycer in 0.3 mg sublingual tablet 02-24 00:00: 00 09-21 00:00 :[id number] 1 tablet under the tongue every 5 (five) minutes as needed for Chest pain. [facility] nitroglycer in 0.3 mg sublingual tablet 0 02-24 00:00: 00 09-21 00:00 :[id number] 1 tablet under the tongue every 5 (five) minutes as needed for Chest pain. [facility] HYDROcodone -ibuprofen 7.5-200 mg per tablet 0 02-07 00:00: 00 Yes 2745 TAKE 1 TABLET BY MOUTH EVERY SIX HOURS NEEDED FOR PAIN Indication s: chronic pain [facility] HYDROcodone -ibuprofen 7.5-200 mg per tablet 0 08 00:00: 00 Yes 2745 TAKE 1 TABLET BY MOUTH EVERY SIX HOURS NEEDED FOR PAIN Indication s: chronic pain [facility] HYDROcodone -ibuprofen 7.5-200 mg per tablet 0 08 00:00: 00 Yes 2745 TAKE 1 TABLET BY MOUTH EVERY SIX HOURS NEEDED FOR PAIN Indication s: chronic pain [facility] HYDROcodone -ibuprofen 7.5-200 mg per tablet 0 08 00:00: 00 Yes 2745 TAKE 1 TABLET BY MOUTH EVERY SIX HOURS NEEDED FOR PAIN Indication s: chronic pain [facility] HYDROcodone -ibuprofen 7.5-200 mg per tablet 0 08 00:00: 00 Yes 2745 TAKE 1 TABLET BY MOUTH EVERY SIX HOURS NEEDED FOR PAIN Indication s: chronic pain [facility] HYDROcodone -ibuprofen 7.5-200 mg per tablet 0 -08 00:00: 00 20203-07 00:00 :00 No 2745 TAKE 1 TABLET BY MOUTH EVERY SIX HOURS NEEDED FOR PAIN Indication s: chronic pain [facility] triamcinolo ne acetonide (KENALOG) injection 40 mg 2022-0 5-05 16:30: 00 12-24 15:18 :00 No [id number] 40mg [facility] triamcinolo ne acetonide (KENALOG) injection 40 mg 3-0 5-05 16:30: 00 12-24 15:18 :00 No [id number] 40mg 40 mg, Intramuscu lar, ONCE, 1 dose, On Tue02/04/23 at 1130, Routine [facility] triamcinolo ne acetonide (KENALOG) injection 40 mg 2022-0 5-05 16:30: 00 12-24 15:18 :00 No [id number] 40mg [facility] triamcinolo ne acetonide (KENALOG) injection 40 mg 2022-0 5-05 16:30: 00 12-24 15:18 :00 No [id number] 40mg 40 mg, Intramuscu lar, ONCE, 1 dose, On Tue02/04/23 at 1130, Routine [facility] triamcinolo ne acetonide (KENALOG) injection 40 mg 2022-0 -05 16:30: 00 12-24 15:18 :00 No 40mg [facility] triamcinolo ne acetonide (KENALOG) injection 40 mg 2022-0 5-05 16:30: 00 12-24 15:18 :00 No 40mg 40 mg, Intramuscu lar, ONCE, 1 dose, On Tue02/04/23 at 1130, Routine [facility] ondansetron 4 mg tablet 2022-0 4-05 00:00: 00 Yes [id number] 4mg Take 1 tablet by mouth every 4 (four) hours as needed for Nausea and Vomiting (N/V). [facility] ondansetron 4 mg tablet 2022-0 4-05 00:00: 00 Yes [id number] 4mg Take 1 tablet by mouth every 4 (four) hours as needed for Nausea and Vomiting (N/V). [facility] ondansetron 4 mg tablet 2023-0 4-05 00:00: 00 Yes [id number] 4mg Take 1 tablet by mouth every 4 (four) hours as needed for Nausea and Vomiting (N/V). [facility] ondansetron 4 mg tablet 3-0 4-05 00:00: 00 Yes [id number] 4mg Take 1 tablet by mouth every 4 (four) hours as needed for Nausea and Vomiting (N/V). [facility] ondansetron 4 mg tablet 3-0 4-05 00:00: 00 Yes [id number] 4mg Take 1 tablet by mouth every 4 (four) hours as needed for Nausea and Vomiting (N/V). [facility] ondansetron 4 mg tablet 3-0 4-05 00:00: 00 Yes [id number] 4mg Take 1 tablet by mouth every 4 (four) hours as needed for Nausea and Vomiting (N/V). [facility] ondansetron 4 mg tablet 3-0 4-05 00:00: 00 Yes [id number] 4mg Take 1 tablet by mouth every 4 (four) hours as needed for Nausea and Vomiting (N/V). [facility] ondansetron 4 mg tablet 3-0 4-05 00:00: 00 Yes [id number] 4mg Take 1 tablet by mouth every 4 (four) hours as needed for Nausea and Vomiting (N/V). [facility] ondansetron 4 mg tablet 3-0 4-05 00:00: 00 Yes [id number] 4mg Take 1 tablet by mouth every 4 (four) hours as needed for Nausea and Vomiting (N/V). [facility] ondansetron 4 mg tablet 3-0 4-05 00:00: 00 Yes [id number] 4mg Take 1 tablet by mouth every 4 (four) hours as needed for Nausea and Vomiting (N/V). [facility] ondansetron 4 mg tablet 3-0 4-05 00:00: 00 Yes [id number] 4mg Take 1 tablet by mouth every 4 (four) hours as needed for Nausea and Vomiting (N/V). [facility] ondansetron 4 mg tablet 2023-0 4-05 00:00: 00 Yes [id number] 4mg Take 1 tablet by mouth every 4 (four) hours as needed for Nausea and Vomiting (N/V). [facility] ondansetron 4 mg tablet 3-0 4-05 00:00: 00 Yes [id number] 4mg Take 1 tablet by mouth every 4 (four) hours as needed for Nausea and Vomiting (N/V). [facility] ondansetron 4 mg tablet 3-0 4-05 00:00: 00 Yes [id number] 4mg Take 1 tablet by mouth every 4 (four) hours as needed for Nausea and Vomiting (N/V). [facility] ondansetron 4 mg tablet 3-0 4-05 00:00: 00 Yes [id number] 4mg Take 1 tablet by mouth every 4 (four) hours as needed for Nausea and Vomiting (N/V). [facility] ondansetron 4 mg tablet 3-0 4-05 00:00: 00 Yes [id number] 4mg Take 1 tablet by mouth every 4 (four) hours as needed for Nausea and Vomiting (N/V). [facility] ondansetron 4 mg tablet 3-0 4-05 00:00: 00 Yes [id number] 4mg Take 1 tablet by mouth every 4 (four) hours as needed for Nausea and Vomiting (N/V). [facility] ondansetron 4 mg tablet 2023-0 4-05 00:00: 00 Yes [id number] 4mg Take 1 tablet by mouth every 4 (four) hours as needed for Nausea and Vomiting (N/V). [facility] ondansetron 4 mg tablet 2023-0 4-05 00:00: 00 Yes [id number] 4mg Take 1 tablet by mouth every 4 (four) hours as needed for Nausea and Vomiting (N/V). [facility] ondansetron 4 mg tablet 2023-0 4-05 00:00: 00 Yes [id number] 4mg Take 1 tablet by mouth every 4 (four) hours as needed for Nausea and Vomiting (N/V). [facility] ondansetron 4 mg tablet 3-0 4-05 00:00: 00 Yes [id number] 4mg Take 1 tablet by mouth every 4 (four) hours as needed for Nausea and Vomiting (N/V). [facility] ondansetron 4 mg tablet 3-0 4-05 00:00: 00 Yes [id number] 4mg Take 1 tablet by mouth every 4 (four) hours as needed for Nausea and Vomiting (N/V). [facility] ondansetron 4 mg tablet 3-0 4-05 00:00: 00 Yes [id number] 4mg Take 1 tablet by mouth every 4 (four) hours as needed for Nausea and Vomiting (N/V). [facility] ondansetron 4 mg tablet 3-0 4-05 00:00: 00 Yes [id number] 4mg Take 1 tablet by mouth every 4 (four) hours as needed for Nausea and Vomiting (N/V). [facility] ondansetron 4 mg tablet 3-0 4-05 00:00: 00 Yes [id number] 4mg Take 1 tablet by mouth every 4 (four) hours as needed for Nausea and Vomiting (N/V). [facility] ondansetron 4 mg tablet 3-0 4-05 00:00: 00 Yes [id number] 4mg Take 1 tablet by mouth every 4 (four) hours as needed for Nausea and Vomiting (N/V). [facility] ondansetron 4 mg tablet 3-0 4-05 00:00: 00 Yes [id number] 4mg Take 1 tablet by mouth every 4 (four) hours as needed for Nausea and Vomiting (N/V). [facility] ondansetron 4 mg tablet 3-0 4-05 00:00: 00 Yes [id number] 4mg Take 1 tablet by mouth every 4 (four) hours as needed for Nausea and Vomiting (N/V). [facility] ondansetron 4 mg tablet 3-0 4-05 00:00: 00 Yes [id number] 4mg Take 1 tablet by mouth every 4 (four) hours as needed for Nausea and Vomiting (N/V). [facility] ondansetron 4 mg tablet 3-0 4-05 00:00: 00 Yes [id number] 4mg Take 1 tablet by mouth every 4 (four) hours as needed for Nausea and Vomiting (N/V). [facility] ondansetron 4 mg tablet 2023-0 4-05 00:00: 00 Yes [id number] 4mg Take 1 tablet by mouth every 4 (four) hours as needed for Nausea and Vomiting (N/V). [facility] ondansetron 4 mg tablet 3-0 4-05 00:00: 00 Yes [id number] 4mg Take 1 tablet by mouth every 4 (four) hours as needed for Nausea and Vomiting (N/V). [facility] ondansetron 4 mg tablet 3-0 4-05 00:00: 00 Yes [id number] 4mg Take 1 tablet by mouth every 4 (four) hours as needed for Nausea and Vomiting (N/V). [facility] ondansetron 4 mg tablet 3-0 4-05 00:00: 00 Yes [id number] 4mg Take 1 tablet by mouth every 4 (four) hours as needed for Nausea and Vomiting (N/V). [facility] ondansetron 4 mg tablet 3-0 4-05 00:00: 00 Yes [id number] 4mg Take 1 tablet by mouth every 4 (four) hours as needed for Nausea and Vomiting (N/V). [facility] ondansetron 4 mg tablet 2023-0 4-05 00:00: 00 Yes [id number] 4mg Take 1 tablet by mouth every 4 (four) hours as needed for Nausea and Vomiting (N/V). [facility] ondansetron 4 mg tablet 3-0 4-05 00:00: 00 Yes [id number] 4mg Take 1 tablet by mouth every 4 (four) hours as needed for Nausea and Vomiting (N/V). [facility] ondansetron 4 mg tablet 2023-0 4-05 00:00: 00 Yes [id number] 4mg Take 1 tablet by mouth every 4 (four) hours as needed for Nausea and Vomiting (N/V). [facility] ondansetron 4 mg tablet 3-0 4-05 00:00: 00 Yes [id number] 4mg Take 1 tablet by mouth every 4 (four) hours as needed for Nausea and Vomiting (N/V). [facility] ondansetron 4 mg tablet 3-0 4-05 00:00: 00 Yes [id number] 4mg Take 1 tablet by mouth every 4 (four) hours as needed for Nausea and Vomiting (N/V). [facility] ondansetron 4 mg tablet 3-0 4-05 00:00: 00 Yes [id number] 4mg Take 1 tablet by mouth every 4 (four) hours as needed for Nausea and Vomiting (N/V). [facility] ondansetron 4 mg tablet 3-0 4-05 00:00: 00 Yes [id number] 4mg Take 1 tablet by mouth every 4 (four) hours as needed for Nausea and Vomiting (N/V). [facility] ondansetron 4 mg tablet 3-0 4-05 00:00: 00 Yes [id number] 4mg Take 1 tablet by mouth every 4 (four) hours as needed for Nausea and Vomiting (N/V). [facility] ondansetron 4 mg tablet 3-0 4-05 00:00: 00 Yes [id number] 4mg Take 1 tablet by mouth every 4 (four) hours as needed for Nausea and Vomiting (N/V). [facility] ondansetron 4 mg tablet 3-0 4-05 00:00: 00 Yes [id number] 4mg Take 1 tablet by mouth every 4 (four) hours as needed for Nausea and Vomiting (N/V). [facility] triamcinolo ne acetonide (KENALOG) injection 40 mg 2023-0 3-24 14:45: 00 12-25 02:44 :00 No [id number] 40mg [facility] triamcinolo ne acetonide (KENALOG) injection 40 mg 2023-0 3-24 14:45: 00 12-25 02:44 :00 No [id number] 40mg [facility] triamcinolo ne acetonide (KENALOG) injection 40 mg 12-24 14:45: 00 12-25 02:44 :00 No 40mg [facility] HYDROcodone -ibuprofen 7.5-200 mg per tablet 12-17 00:00: 00 Yes 2745 TAKE 1 TABLET BY MOUTH EVERY SIX HOURS NEEDED FOR PAIN Indication s: chronic pain [facility] HYDROcodone -ibuprofen 7.5-200 mg per tablet 12-17 00:00: 00 Yes 2745 TAKE 1 TABLET BY MOUTH EVERY SIX HOURS NEEDED FOR PAIN Indication s: chronic pain [facility] HYDROcodone -ibuprofen 7.5-200 mg per tablet 12-17 00:00: 00 Yes 2745 TAKE 1 TABLET BY MOUTH EVERY SIX HOURS NEEDED FOR PAIN Indication s: chronic pain [facility] HYDROcodone -ibuprofen 7.5-200 mg per tablet 12-17 00:00: 00 Yes 2745 TAKE 1 TABLET BY MOUTH EVERY SIX HOURS NEEDED FOR PAIN Indication s: chronic pain [facility] HYDROcodone -ibuprofen 7.5-200 mg per tablet 12-17 00:00: 00 Yes 2745 TAKE 1 TABLET BY MOUTH EVERY SIX HOURS NEEDED FOR PAIN Indication s: chronic pain [facility] HYDROcodone -ibuprofen 7.5-200 mg per tablet 12-17 00:00: 00 Yes 2745 TAKE 1 TABLET BY MOUTH EVERY SIX HOURS NEEDED FOR PAIN Indication s: chronic pain [facility] HYDROcodone -ibuprofen 7.5-200 mg per tablet 12-17 00:00: 00 Yes 2745 TAKE 1 TABLET BY MOUTH EVERY SIX HOURS NEEDED FOR PAIN Indication s: chronic pain [facility] HYDROcodone -ibuprofen 7.5-200 mg per tablet 12-17 00:00: 00 Yes 2745 TAKE 1 TABLET BY MOUTH EVERY SIX HOURS NEEDED FOR PAIN Indication s: chronic pain [facility] HYDROcodone -ibuprofen 7.5-200 mg per tablet 0 12-17 00:00: 00 Yes 2745 TAKE 1 TABLET BY MOUTH EVERY SIX HOURS NEEDED FOR PAIN Indication [facility]: [facility] -ib[facility]rofen 7.5-200 mg per tablet 0 12-17 00:00: 00 Yes 2745 TAKE 1 TABLET BY MOUTH EVERY SIX HOURS NEEDED FOR PAIN Indication s: [facility] HYDR[facility]one -ibuprofen 7.5-200 mg per tablet 0 12-17 00:00: 00 Yes 2745 TAKE 1 TABLET BY MOUTH EVERY SIX HOURS NEEDED FOR PAIN Indication s: chronic pain [facility] HYDROcodone -ibuprofen 7.5-200 mg per tablet 12-17 00:00: 00 Yes 2745 TAKE 1 TABLET BY MOUTH EVERY SIX HOURS NEEDED FOR PAIN Indication s: chronic pain [facility] HYDROcodone -ibuprofen 7.5-200 mg per tablet 12-17 00:00: 00 02-07 00:00 :00 No 2745 TAKE 1 TABLET BY MOUTH EVERY SIX HOURS NEEDED FOR PAIN Indication s: chronic pain [facility] HYDROcodone -ibuprofen 7.5-200 mg per tablet 12-17 00:00: 00 02-07 00:00 :00 No 2745 TAKE 1 TABLET BY MOUTH EVERY SIX HOURS NEEDED FOR PAIN Indication s: chronic pain [facility] diclofenac 50 mg EC tablet 12-16 00:00: 00 Yes [id number] 50mg Take 1 tablet by mouth in the morning and 1 tablet in the evening. Take with meals. [facility] ALPRAZolam 0.25 mg tablet 12-16 00:00: 00 Yes [id number] TAKE 1/2 TABLET BY MOUTH THREE TIMES DAILY NEEDED FOR ANXIETY [facility] HYDROcodone -acetaminop hen 5-325 mg tablet 12-16 00:00: 00 Yes 2745 TAKE 1 TABLET BY MOUTH EVERY FOUR HOURS NEEDED FOR PAIN Indication s: chronic pain [facility] diclofenac 50 mg EC tablet 12-16 00:00: 00 Yes [id number] 50mg Take 1 tablet by mouth in the morning and 1 tablet in the evening. Take with meals. [facility] ALPRAZolam 0.25 mg tablet 2022-0 16 00:00: 00 Yes [id number] TAKE 1/2 TABLET BY MOUTH THREE TIMES DAILY NEEDED FOR ANXIETY [facility] -acetaminop hen 5-325 mg tablet 2022-0 16 00:00: 00 Yes 2745 TAKE 1 TABLET BY MOUTH EVERY FOUR HOURS NEEDED FOR PAIN Indication s: chronic pain [facility] diclofenac 50 mg EC tablet 2022-0 16 00:00: 00 Yes [id number] 50mg Take 1 tablet by mouth in the morning and 1 tablet in the evening. Take with meals. [facility] 0.25 mg tablet 2022-0 16 00:00: 00 Yes [id number] TAKE 1/2 TABLET BY MOUTH THREE TIMES DAILY NEEDED FOR ANXIETY [facility] HYDROcodone -acetaminop hen 5-325 mg tablet 2022-0 16 00:00: 00 Yes 2745 TAKE 1 TABLET BY MOUTH EVERY FOUR HOURS NEEDED FOR PAIN Indication s: chronic pain [facility] dic[facility] mg EC tablet 2022-0 16 00:00: 00 Yes [id number] 50mg Take 1 tablet by mouth in the morning and 1 tablet in the evening. Take with meals. [facility] ALPR[facility]am 0.25 mg tablet 2022-0 16 00:00: 00 Yes [id number] TAKE 1/2 TABLET BY MOUTH THREE TIMES DAILY NEEDED FOR ANXIETY [facility] HYDROcodone -acetaminop hen 5-325 mg tablet 2022-0 16 00:00: 00 Yes 2745 TAKE 1 TABLET BY MOUTH EVERY FOUR HOURS NEEDED FOR PAIN Indication s: chronic pain [facility] diclof[facility]ac [facility] mg EC tablet 2022-0 -16 00:00: 00 Yes [id number] 50mg Take 1 tablet by mouth in the morning and 1 tablet in the evening. Take with meals. [facility] ALPR[facility]am 0.25 mg tablet 3-0 -16 00:00: 00 Yes [id number] TAKE 1/2 TABLET BY MOUTH THREE TIMES DAILY NEEDED FOR ANXIETY [facility] HYDROcodone -acetaminop hen 5-325 mg tablet 2023-0 3-16 00:00: 00 Yes 2745 TAKE 1 TABLET BY MOUTH EVERY FOUR HOURS NEEDED FOR PAIN Indication s: chronic pain [facility] diclofenac 50 mg EC tablet 2022-0 3-16 00:00: 00 Yes [id number] 50mg Take 1 tablet by mouth in the morning and 1 tablet in the evening. Take with meals. [facility] ALPR[facility]am 0.25 mg tablet 3-0 3-16 00:00: 00 Yes [id number] TAKE 1/2 TABLET BY MOUTH THREE TIMES DAILY NEEDED FOR ANXIETY [facility] HYDROcodone -acetaminop hen 5-325 mg tablet 3-0 3-16 00:00: 00 Yes 2745 TAKE 1 TABLET BY MOUTH EVERY FOUR HOURS NEEDED FOR PAIN Indication s: chronic pain [facility] diclofenac [facility] mg EC tablet 2022-0 3-16 00:00: 00 Yes [id number] 50mg Take 1 tablet by mouth in the morning and 1 tablet in the evening. Take with meals. [facility] ALPRAZolam 0.25 mg tablet 3-0 3-16 00:00: 00 Yes [id number] TAKE 1/2 TABLET BY MOUTH THREE TIMES DAILY NEEDED FOR ANXIETY [facility] HYDROcodone -acetaminop hen 5-325 mg tablet 2022-0 3-16 00:00: 00 Yes 2745 TAKE 1 TABLET BY MOUTH EVERY FOUR HOURS NEEDED FOR PAIN Indication s: chronic pain [facility] diclofenac 50 mg EC tablet 3-0 3-16 00:00: 00 Yes [id number] 50mg Take 1 tablet by mouth in the morning and 1 tablet in the evening. Take with meals. [facility] ALPRAZolam 0.25 mg tablet 3-0 3-16 00:00: 00 Yes [id number] TAKE 1/2 TABLET BY MOUTH THREE TIMES DAILY NEEDED FOR ANXIETY [facility] HYDROcodone -acetaminop hen 5-325 mg tablet 3-0 3-16 00:00: 00 Yes 2745 TAKE 1 TABLET BY MOUTH EVERY FOUR HOURS NEEDED FOR PAIN Indication s: chronic pain [facility] diclofenac 50 mg EC tablet 2023-0 3-16 00:00: 00 Yes [id number] 50mg Take 1 tablet by mouth in the morning and 1 tablet in the evening. Take with meals. [facility] ALPRAZolam 0.25 mg tablet 2022-0 316 00:00: 00 Yes [id number] TAKE 1/2 TABLET BY MOUTH THREE TIMES DAILY NEEDED FOR ANXIETY [facility] HYDROcodone -acetaminop hen 5-325 mg tablet 2022-0 3-16 00:00: 00 Yes 2745 TAKE 1 TABLET BY MOUTH EVERY FOUR HOURS NEEDED FOR PAIN Indication s: chronic pain [facility] diclofenac 50 mg EC tablet 2022-0 16 00:00: 00 Yes [id number] 50mg Take 1 tablet by mouth in the morning and 1 tablet in the evening. Take with meals. [facility] ALPRAZolam 0.25 mg tablet 2022-0 316 00:00: 00 Yes [id number] TAKE 1/2 TABLET BY MOUTH THREE TIMES DAILY NEEDED FOR ANXIETY [facility] HYDROcodone -acetaminop hen 5-325 mg tablet 2022-0 16 00:00: 00 Yes 2745 TAKE 1 TABLET BY MOUTH EVERY FOUR HOURS NEEDED FOR PAIN Indication s: chronic pain [facility] diclofenac 50 mg EC tablet 2022-0 16 00:00: 00 Yes [id number] 50mg Take 1 tablet by mouth in the morning and 1 tablet in the evening. Take with meals. [facility] ALPRAZolam 0.25 mg tablet 2022-0 16 00:00: 00 Yes [id number] TAKE 1/2 TABLET BY MOUTH THREE TIMES DAILY NEEDED FOR ANXIETY [facility] HYDROcodone -acetaminop hen 5-325 mg tablet 3-0 3-16 00:00: 00 Yes 2745 TAKE 1 TABLET BY MOUTH EVERY FOUR HOURS NEEDED FOR PAIN Indication s: chronic pain [facility] diclof[facility]ac [facility] mg EC tablet 3-0 -16 00:00: 00 Yes [id number] 50mg Take 1 tablet by mouth in the morning and 1 tablet in the evening. Take with meals. [facility] ALPRAZolam 0.25 mg tablet 2022-0 16 00:00: 00 Yes [id number] TAKE 1/2 TABLET BY MOUTH THREE TIMES DAILY NEEDED FOR ANXIETY [facility] HYDROcodone -acetaminop hen 5-325 mg tablet 2022-0 16 00:00: 00 Yes 2745 TAKE 1 TABLET BY MOUTH EVERY FOUR HOURS NEEDED FOR PAIN Indication s: chronic pain [facility] diclofenac 50 mg EC tablet 2022-0 16 00:00: 00 Yes [id number] 50mg Take 1 tablet by mouth in the morning and 1 tablet in the evening. Take with meals. [facility] ALPR[facility]am 0.25 mg tablet 2022-0 16 00:00: 00 Yes [id number] TAKE 1/2 TABLET BY MOUTH THREE TIMES DAILY NEEDED FOR ANXIETY [facility] HYDROcodone -acetaminop hen 5-325 mg tablet 2022-0 16 00:00: 00 Yes 2745 TAKE 1 TABLET BY MOUTH EVERY FOUR HOURS NEEDED FOR PAIN Indication s: chronic pain [facility] diclofenac 50 mg EC tablet 2022-0 16 00:00: 00 Yes [id number] 50mg Take 1 tablet by mouth in the morning and 1 tablet in the evening. Take with meals. [facility] ALPRAZolam 0.25 mg tablet 2022-0 16 00:00: 00 Yes [id number] TAKE 1/2 TABLET BY MOUTH THREE TIMES DAILY NEEDED FOR ANXIETY [facility] HYDROcodone -acetaminop hen 5-325 mg tablet 2022-0 16 00:00: 00 Yes 2745 TAKE 1 TABLET BY MOUTH EVERY FOUR HOURS NEEDED FOR PAIN Indication s: chronic pain [facility] diclofenac 50 mg EC tablet 2022-0 -16 00:00: 00 Yes [id number] 50mg Take 1 tablet by mouth in the morning and 1 tablet in the evening. Take with meals. [facility] ALPRAZolam 0.25 mg tablet 3-0 -16 00:00: 00 Yes [id number] TAKE 1/2 TABLET BY MOUTH THREE TIMES DAILY NEEDED FOR ANXIETY [facility] HYDROcodone -acetaminop hen 5-325 mg tablet 2023-0 3-16 00:00: 00 Yes 2745 TAKE 1 TABLET BY MOUTH EVERY FOUR HOURS NEEDED FOR PAIN Indication s: chronic pain [facility] diclofenac 50 mg EC tablet 2022-0 3-16 00:00: 00 Yes [id number] 50mg Take 1 tablet by mouth in the morning and 1 tablet in the evening. Take with meals. [facility] ALPRAZolam 0.25 mg tablet 3-0 3-16 00:00: 00 Yes [id number] TAKE 1/2 TABLET BY MOUTH THREE TIMES DAILY NEEDED FOR ANXIETY [facility] HYDROcodone -acetaminop hen 5-325 mg tablet 3-0 3-16 00:00: 00 Yes 2745 TAKE 1 TABLET BY MOUTH EVERY FOUR HOURS NEEDED FOR PAIN Indication s: chronic pain [facility] diclofenac 50 mg EC tablet 2022-0 3-16 00:00: 00 Yes [id number] 50mg Take 1 tablet by mouth in the morning and 1 tablet in the evening. Take with meals. [facility] ALPRAZolam 0.25 mg tablet 3-0 3-16 00:00: 00 Yes [id number] TAKE 1/2 TABLET BY MOUTH THREE TIMES DAILY NEEDED FOR ANXIETY [facility] HYDROcodone -acetaminop hen 5-325 mg tablet 2022-0 3-16 00:00: 00 Yes 2745 TAKE 1 TABLET BY MOUTH EVERY FOUR HOURS NEEDED FOR PAIN Indication s: chronic pain [facility] diclofenac 50 mg EC tablet 3-0 3-16 00:00: 00 Yes [id number] 50mg Take 1 tablet by mouth in the morning and 1 tablet in the evening. Take with meals. [facility] ALPRAZolam 0.25 mg tablet 3-0 3-16 00:00: 00 Yes [id number] TAKE 1/2 TABLET BY MOUTH THREE TIMES DAILY NEEDED FOR ANXIETY [facility] HYDROcodone -acetaminop hen 5-325 mg tablet 3-0 3-16 00:00: 00 Yes 2745 TAKE 1 TABLET BY MOUTH EVERY FOUR HOURS NEEDED FOR PAIN Indication s: chronic pain [facility] diclofenac 50 mg EC tablet 2023-0 3-16 00:00: 00 Yes [id number] 50mg Take 1 tablet by mouth in the morning and 1 tablet in the evening. Take with meals. [facility] ALPRAZolam 0.25 mg tablet 2022-0 316 00:00: 00 Yes [id number] TAKE 1/2 TABLET BY MOUTH THREE TIMES DAILY NEEDED FOR ANXIETY [facility] HYDROcodone -acetaminop hen 5-325 mg tablet 2022-0 3-16 00:00: 00 Yes 2745 TAKE 1 TABLET BY MOUTH EVERY FOUR HOURS NEEDED FOR PAIN Indication s: chronic pain [facility] diclofenac 50 mg EC tablet 2022-0 16 00:00: 00 Yes [id number] 50mg Take 1 tablet by mouth in the morning and 1 tablet in the evening. Take with meals. [facility] ALPRAZolam 0.25 mg tablet 2022-0 316 00:00: 00 Yes [id number] TAKE 1/2 TABLET BY MOUTH THREE TIMES DAILY NEEDED FOR ANXIETY [facility] HYDROcodone -acetaminop hen 5-325 mg tablet 2022-0 16 00:00: 00 Yes 2745 TAKE 1 TABLET BY MOUTH EVERY FOUR HOURS NEEDED FOR PAIN Indication s: chronic pain [facility] diclofenac 50 mg EC tablet 2022-0 16 00:00: 00 Yes [id number] 50mg Take 1 tablet by mouth in the morning and 1 tablet in the evening. Take with meals. [facility] ALPRAZolam 0.25 mg tablet 2022-0 16 00:00: 00 Yes [id number] TAKE 1/2 TABLET BY MOUTH THREE TIMES DAILY NEEDED FOR ANXIETY [facility] HYDROcodone -acetaminop hen 5-325 mg tablet 3-0 3-16 00:00: 00 Yes 2745 TAKE 1 TABLET BY MOUTH EVERY FOUR HOURS NEEDED FOR PAIN Indication s: chronic pain [facility] diclofenac 50 mg EC tablet 3-0 -16 00:00: 00 Yes [id number] 50mg Take 1 tablet by mouth in the morning and 1 tablet in the evening. Take with meals. [facility] ALPRAZolam 0.25 mg tablet 2022-0 16 00:00: 00 Yes [id number] TAKE 1/2 TABLET BY MOUTH THREE TIMES DAILY NEEDED FOR ANXIETY [facility] HYDROcodone -acetaminop hen 5-325 mg tablet 2022-0 16 00:00: 00 Yes 2745 TAKE 1 TABLET BY MOUTH EVERY FOUR HOURS NEEDED FOR PAIN Indication s: chronic pain [facility] diclofenac 50 mg EC tablet 2022-0 16 00:00: 00 Yes [id number] 50mg Take 1 tablet by mouth in the morning and 1 tablet in the evening. Take with meals. [facility] ALPRAZolam 0.25 mg tablet 2022-0 16 00:00: 00 Yes [id number] TAKE 1/2 TABLET BY MOUTH THREE TIMES DAILY NEEDED FOR ANXIETY [facility] diclofenac 50 mg EC tablet 2022-0 16 00:00: 00 Yes [id number] 50mg Take 1 tablet by mouth in the morning and 1 tablet in the evening. Take with meals. [facility] ALPRAZolam 0.25 mg tablet 2022-0 16 00:00: 00 Yes [id number] TAKE 1/2 TABLET BY MOUTH THREE TIMES DAILY NEEDED FOR ANXIETY [facility] diclofenac 50 mg EC tablet 2022-0 16 00:00: 00 Yes [id number] 50mg Take 1 tablet by mouth in the morning and 1 tablet in the evening. Take with meals. [facility] ALPR[facility]am 0.25 mg tablet 2022-0 16 00:00: 00 Yes [id number] TAKE 1/2 TABLET BY MOUTH THREE TIMES DAILY NEEDED FOR ANXIETY [facility] diclofenac 50 mg EC tablet 2022-0 -16 00:00: 00 Yes [id number] 50mg Take 1 tablet by mouth in the morning and 1 tablet in the evening. Take with meals. [facility] ALPRAZolam 0.25 mg tablet 3-0 -16 00:00: 00 Yes [id number] TAKE 1/2 TABLET BY MOUTH THREE TIMES DAILY NEEDED FOR ANXIETY [facility] diclofenac 50 mg EC tablet 2022-0 3-16 00:00: 00 Yes [id number] 50mg Take 1 tablet by mouth in the morning and 1 tablet in the evening. Take with meals. [facility] ALPR[facility]am 0.25 mg tablet 2023-0 3-16 00:00: 00 Yes [id number] TAKE 1/2 TABLET BY MOUTH THREE TIMES DAILY NEEDED FOR ANXIETY [facility] diclof[facility]ac 50 mg EC tablet 3-0 3-16 00:00: 00 Yes [id number] 50mg Take 1 tablet by mouth in the morning and 1 tablet in the evening. Take with meals. [facility] ALPRAZolam 0.25 mg tablet 3-0 3-16 00:00: 00 Yes [id number] TAKE 1/2 TABLET BY MOUTH THREE TIMES DAILY NEEDED FOR ANXIETY [facility] diclof[facility]ac 50 mg EC tablet 3-0 3-16 00:00: 00 Yes [id number] 50mg Take 1 tablet by mouth in the morning and 1 tablet in the evening. Take with meals. [facility] ALPRAZolam 0.25 mg tablet 3-0 3-16 00:00: 00 Yes [id number] TAKE 1/2 TABLET BY MOUTH THREE TIMES DAILY NEEDED FOR ANXIETY [facility] diclofenac 50 mg EC tablet 3-0 3-16 00:00: 00 Yes [id number] 50mg Take 1 tablet by mouth in the morning and 1 tablet in the evening. Take with meals. [facility] ALPRAZolam 0.25 mg tablet 3-0 3-16 00:00: 00 Yes [id number] TAKE 1/2 TABLET BY MOUTH THREE TIMES DAILY NEEDED FOR ANXIETY [facility] diclofenac 50 mg EC tablet 3-0 3-16 00:00: 00 Yes [id number] 50mg Take 1 tablet by mouth in the morning and 1 tablet in the evening. Take with meals. [facility] ALPRAZolam 0.25 mg tablet 2023-0 3-16 00:00: 00 Yes [id number] TAKE 1/2 TABLET BY MOUTH THREE TIMES DAILY NEEDED FOR ANXIETY [facility] diclofenac 50 mg EC tablet 3-0 3-16 00:00: 00 Yes [id number] 50mg Take 1 tablet by mouth in the morning and 1 tablet in the evening. Take with meals. [facility] ALPRAZolam 0.25 mg tablet 2022-0 316 00:00: 00 Yes [id number] TAKE 1/2 TABLET BY MOUTH THREE TIMES DAILY NEEDED FOR ANXIETY [facility] diclofenac 50 mg EC tablet 2022-0 3-16 00:00: 00 Yes [id number] 50mg Take 1 tablet by mouth in the morning and 1 tablet in the evening. Take with meals. [facility] ALPRAZolam 0.25 mg tablet 2022-0 3-16 00:00: 00 Yes [id number] TAKE 1/2 TABLET BY MOUTH THREE TIMES DAILY NEEDED FOR ANXIETY [facility] diclofenac 50 mg EC tablet 2022-0 16 00:00: 00 Yes [id number] 50mg Take 1 tablet by mouth in the morning and 1 tablet in the evening. Take with meals. [facility] ALPRAZolam 0.25 mg tablet 2022-0 16 00:00: 00 Yes [id number] TAKE 1/2 TABLET BY MOUTH THREE TIMES DAILY NEEDED FOR ANXIETY [facility] HYDROcodone -acetaminop hen 5-325 mg tablet 2022-0 16 00:00: 00 Yes [id number] TAKE 1 TABLET BY MOUTH EVERY FOUR HOURS NEEDED FOR PAIN Indication s: chronic pain [facility] diclofenac 50 mg EC tablet 3-0 3-16 00:00: 00 Yes [id number] 50mg Take 1 tablet by mouth in the morning and 1 tablet in the evening. Take with meals. [facility] ALPRAZolam 0.25 mg tablet 3-0 3-16 00:00: 00 Yes [id number] TAKE 1/2 TABLET BY MOUTH THREE TIMES DAILY NEEDED FOR ANXIETY [facility] HYDROcodone -acetaminop hen 5-325 mg tablet 3-0 3-16 00:00: 00 Yes 2745 TAKE 1 TABLET BY MOUTH EVERY FOUR HOURS NEEDED FOR PAIN Indication s: chronic pain [facility] diclofenac 50 mg EC tablet 3-0 3-16 00:00: 00 Yes [id number] 50mg Take 1 tablet by mouth in the morning and 1 tablet in the evening. Take with meals. [facility] ALPRAZolam 0.25 mg tablet 3-0 3-16 00:00: 00 Yes [id number] TAKE 1/2 TABLET BY MOUTH THREE TIMES DAILY NEEDED FOR ANXIETY [facility] HYDROcodone -acetaminop hen 5-325 mg tablet 3-0 3-16 00:00: 00 Yes 2745 TAKE 1 TABLET BY MOUTH EVERY FOUR HOURS NEEDED FOR PAIN Indication s: chronic pain [facility] diclofenac 50 mg EC tablet 2022-0 3-16 00:00: 00 Yes [id number] 50mg Take 1 tablet by mouth in the morning and 1 tablet in the evening. Take with meals. [facility] ALPRAZolam 0.25 mg tablet 3-0 3-16 00:00: 00 Yes [id number] TAKE 1/2 TABLET BY MOUTH THREE TIMES DAILY NEEDED FOR ANXIETY [facility] HYDROcodone -acetaminop hen 5-325 mg tablet 2022-0 3-16 00:00: 00 Yes [id number] TAKE 1 TABLET BY MOUTH EVERY FOUR HOURS NEEDED FOR PAIN Indication s: chronic pain [facility] diclofenac 50 mg EC tablet 2022-0 3-16 00:00: 00 Yes [id number] 50mg Take 1 tablet by mouth in the morning and 1 tablet in the evening. Take with meals. [facility] ALPRAZolam 0.25 mg tablet 3-0 3-16 00:00: 00 Yes [id number] TAKE 1/2 TABLET BY MOUTH THREE TIMES DAILY NEEDED FOR ANXIETY [facility] HYDROcodone -acetaminop hen 5-325 mg tablet 3-0 3-16 00:00: 00 Yes [id number] TAKE 1 TABLET BY MOUTH EVERY FOUR HOURS NEEDED FOR PAIN Indication s: chronic pain [facility] diclofenac 50 mg EC tablet 3-0 3-16 00:00: 00 Yes [id number] 50mg Take 1 tablet by mouth in the morning and 1 tablet in the evening. Take with meals. [facility] ALPRAZolam 0.25 mg tablet 3-0 3-16 00:00: 00 Yes [id number] TAKE 1/2 TABLET BY MOUTH THREE TIMES DAILY NEEDED FOR ANXIETY [facility] HYDROcodone -acetaminop hen 5-325 mg tablet 2022-0 3-16 00:00: 00 Yes [id number] TAKE 1 TABLET BY MOUTH EVERY FOUR HOURS NEEDED FOR PAIN Indication s: chronic pain [facility] diclofenac 50 mg EC tablet 2022-0 3-16 00:00: 00 Yes [id number] 50mg Take 1 tablet by mouth in the morning and 1 tablet in the evening. Take with meals. [facility] ALPRAZolam 0.25 mg tablet 2022-0 3-16 00:00: 00 Yes [id number] TAKE 1/2 TABLET BY MOUTH THREE TIMES DAILY NEEDED FOR ANXIETY [facility] HYDROcodone -acetaminop hen 5-325 mg tablet 2022-0 3-16 00:00: 00 Yes [id number] TAKE 1 TABLET BY MOUTH EVERY FOUR HOURS NEEDED FOR PAIN Indication s: chronic pain [facility] diclofenac 50 mg EC tablet 2022-0 3-16 00:00: 00 Yes [id number] 50mg Take 1 tablet by mouth in the morning and 1 tablet in the evening. Take with meals. [facility] ALPRAZolam 0.25 mg tablet 2022-0 3-16 00:00: 00 Yes [id number] TAKE 1/2 TABLET BY MOUTH THREE TIMES DAILY [facility]-325 mg tablet 2022-0 3-16 00:00: 00 Yes [id number] TAKE 1 TABLET BY MOUTH EVERY FOUR HOURS NEEDED FOR PAIN Indication s: chronic pain [facility] diclofenac 50 mg EC tablet 2022-0 3-16 00:00: 00 Yes [id number] 50mg Take 1 tablet by mouth in the morning and 1 tablet in the evening. Take with meals. [facility] ALPRAZolam 0.25 mg tablet 3-0 3-16 00:00: 00 Yes [id number] TAKE 1/2 TABLET BY MOUTH THREE TIMES DAILY NEEDED FOR ANXIETY [facility] HYDROcodone -acetaminop hen 5-325 mg tablet 3-0 3-16 00:00: 00 Yes 2745 TAKE 1 TABLET BY MOUTH EVERY FOUR HOURS NEEDED FOR PAIN Indication s: chronic pain [facility] diclofenac 50 mg EC tablet 2022-0 3-16 00:00: 00 Yes [id number] 50mg Take 1 tablet by mouth in the morning and 1 tablet in the evening. Take with meals. [facility] ALPRAZolam 0.25 mg tablet 3-0 3-16 00:00: 00 Yes [id number] TAKE 1/2 TABLET BY MOUTH THREE TIMES DAILY NEEDED FOR ANXIETY [facility] HYDROcodone -acetaminop hen 5-325 mg tablet 2022-0 3-16 00:00: 00 Yes 2745 TAKE 1 TABLET BY MOUTH EVERY FOUR HOURS NEEDED FOR PAIN Indication s: chronic pain [facility] diclofenac 50 mg EC tablet 2022-0 16 00:00: 00 Yes [id number] 50mg Take 1 tablet by mouth in the morning and 1 tablet in the evening. Take with meals. [facility] ALPRAZolam 0.25 mg tablet 2022-0 16 00:00: 00 Yes [id number] TAKE 1/2 TABLET BY MOUTH THREE TIMES DAILY NEEDED FOR ANXIETY [facility] HYDROcodone -acetaminop hen 5-325 mg tablet 2022-0 3-16 00:00: 00 Yes 2745 TAKE 1 TABLET BY MOUTH EVERY FOUR HOURS NEEDED FOR PAIN Indication s: [facility] 2022-0 3-16 00:00: 00 Yes [id number] 50mg Take 1 tablet by mouth in the morning and 1 tablet in the evening. Take with meals. [facility] ALPRAZolam 0.25 mg tablet 3-0 3-16 00:00: 00 Yes [id number] TAKE 1/2 TABLET BY MOUTH THREE TIMES DAILY NEEDED FOR ANXIETY [facility] -acetaminop [facility] 5-325 mg tablet 3-0 3-16 00:00: 00 Yes 2745 TAKE 1 TABLET BY MOUTH EVERY FOUR HOURS NEEDED FOR PAIN Indication s: chronic pain [facility] diclofenac 50 mg EC tablet 3-0 3-16 00:00: 00 Yes [id number] 50mg Take 1 tablet by mouth in the morning and 1 tablet in the evening. Take with meals. [facility] 3-0 3-16 00:00: 00 Yes [id number] TAKE 1/2 TABLET BY MOUTH THREE TIMES DAILY NEEDED FOR ANXIETY [facility] -acetaminop hen 5-325 mg tablet 3-0 3-16 00:00: 00 Yes 2745 TAKE 1 TABLET BY MOUTH EVERY FOUR HOURS NEEDED FOR PAIN Indication s: chronic [facility] EC tablet 2022-0 3-16 00:00: 00 Yes [id number] 50mg Take 1 tablet by mouth in the morning and 1 tablet in the evening. Take with meals. [facility].25 mg tablet 3-0 3-16 00:00: 00 Yes [id number] TAKE 1/2 TABLET BY MOUTH THREE TIMES DAILY NEEDED FOR ANXIETY [facility] -acetaminop hen 5-325 mg tablet 2022-0 3-16 00:00: 00 Yes 2745 TAKE 1 TABLET BY MOUTH EVERY FOUR HOURS NEEDED FOR PAIN Indication s: chronic [facility] EC tablet 2022-0 3-16 00:00: 00 Yes [id number] 50mg Take 1 tablet by mouth in the morning and 1 tablet in the evening. Take with meals. [facility].25 mg tablet 3-0 3-16 00:00: 00 Yes [id number] TAKE 1/2 TABLET BY MOUTH THREE TIMES DAILY NEEDED FOR ANXIETY [facility] -acetaminop hen 5-325 mg tablet 3-0 3-16 00:00: 00 Yes 2745 TAKE 1 TABLET BY MOUTH EVERY FOUR HOURS NEEDED FOR PAIN Indication s: [facility] EC tablet 3-0 3-16 00:00: 00 Yes [id number] 50mg Take 1 tablet by mouth in the morning and 1 tablet in the evening. Take with meals. [facility] ALPRAZolam 0.25 mg tablet 3-0 3-16 00:00: 00 Yes [id number] TAKE 1/2 TABLET BY MOUTH THREE TIMES DAILY NEEDED FOR ANXIETY [facility] HYDROcodone -acetaminop hen 5-325 mg tablet 2022-0 3-16 00:00: 00 Yes 2745 TAKE 1 TABLET BY MOUTH EVERY FOUR HOURS NEEDED FOR PAIN Indication s: chronic pain [facility] diclofenac 50 mg EC tablet 2022-0 3-16 00:00: 00 Yes [id number] 50mg Take 1 tablet by mouth in the morning and 1 tablet in the evening. Take with meals. [facility] ALPRAZolam 0.25 mg tablet 2022-0 3-16 00:00: 00 Yes [id number] TAKE 1/2 TABLET BY MOUTH THREE TIMES DAILY NEEDED FOR ANXIETY [facility] HYDROcodone -acetaminop hen 5-325 mg tablet 2022-0 3-16 00:00: 00 Yes 2745 TAKE 1 TABLET BY MOUTH EVERY FOUR HOURS NEEDED FOR PAIN Indication s: chronic pain [facility] diclofenac 50 mg EC tablet 2022-0 3-16 00:00: 00 Yes [id number] 50mg Take 1 tablet by mouth in the morning and 1 tablet in the evening. Take with meals. [facility] ALPRAZolam 0.25 mg tablet 2022-0 3-16 00:00: 00 Yes [id number] TAKE 1/2 TABLET BY MOUTH THREE TIMES DAILY NEEDED FOR ANXIETY [facility] -acetaminop hen 5-325 mg tablet 2022-0 3-16 00:00: 00 Yes 2745 TAKE 1 TABLET BY MOUTH EVERY FOUR HOURS NEEDED FOR PAIN Indication s: chronic pain [facility] diclofenac 50 mg EC tablet 2022-0 3-16 00:00: 00 Yes [id number] 50mg Take 1 tablet by mouth in the morning and 1 tablet in the evening. Take with meals. [facility] ALPRAZolam 0.25 mg tablet 3-0 3-16 00:00: 00 Yes [id number] TAKE 1/2 TABLET BY MOUTH THREE TIMES DAILY NEEDED FOR ANXIETY [facility] HYDROcodone -acetaminop hen 5-325 mg tablet 3-0 3-16 00:00: 00 Yes 2745 TAKE 1 TABLET BY MOUTH EVERY FOUR HOURS NEEDED FOR PAIN Indication s: chronic pain [facility] diclofenac 50 mg EC tablet 2022-0 3-16 00:00: 00 Yes [id number] 50mg Take 1 tablet by mouth in the morning and 1 tablet in the evening. Take with meals. [facility] ALPRAZolam 0.25 mg tablet 3-0 3-16 00:00: 00 Yes [id number] TAKE 1/2 TABLET BY MOUTH THREE TIMES DAILY NEEDED FOR ANXIETY [facility] HYDROcodone -acetaminop hen 5-325 mg tablet 2022-0 3-16 00:00: 00 Yes 2745 TAKE 1 TABLET BY MOUTH EVERY FOUR HOURS NEEDED FOR PAIN Indication s: chronic pain [facility] diclofenac 50 mg EC tablet 2022-0 16 00:00: 00 Yes [id number] 50mg Take 1 tablet by mouth in the morning and 1 tablet in the evening. Take with meals. [facility] ALPRAZolam 0.25 mg tablet 2022-0 16 00:00: 00 Yes [id number] TAKE 1/2 TABLET BY MOUTH THREE TIMES DAILY NEEDED FOR ANXIETY [facility] HYDROcodone -acetaminop hen 5-325 mg tablet 2022-0 3-16 00:00: 00 Yes 2745 TAKE 1 TABLET BY MOUTH EVERY FOUR HOURS NEEDED FOR PAIN Indication s: [facility] tablet 2022-0 3-16 00:00: 00 Yes [id number] 50mg Take 1 tablet by mouth in the morning and 1 tablet in the evening. Take with meals. [facility] ALPRAZolam 0.25 mg tablet 3-0 3-16 00:00: 00 Yes [id number] TAKE 1/2 TABLET BY MOUTH THREE TIMES DAILY NEEDED FOR ANXIETY [facility] -acetaminop hen 5-325 mg tablet 3-0 3-16 00:00: 00 Yes 2745 TAKE 1 TABLET BY MOUTH EVERY FOUR HOURS NEEDED FOR PAIN Indication s: chronic pain [facility] diclofenac 50 mg EC tablet 3-0 3-16 00:00: 00 Yes [id number] 50mg Take 1 tablet by mouth in the morning and 1 tablet in the evening. Take with meals. [facility] ALPRAZolam 0.25 mg tablet 16 00:00: 00 Yes [id number] TAKE 1/2 TABLET BY MOUTH THREE TIMES DAILY NEEDED FOR ANXIETY [facility] HYDROcodone -acetaminop hen 5-325 mg tablet 16 00:00: 00 Yes 2745 TAKE 1 TABLET BY MOUTH EVERY FOUR HOURS NEEDED FOR PAIN Indication s: chronic pain [facility] diclofenac 50 mg EC tablet 16 00:00: 00 Yes [id number] 50mg Take 1 tablet by mouth in the morning and 1 tablet in the evening. Take with meals. [facility] ALPRAZolam 0.25 mg tablet 16 00:00: 00 Yes [id number] TAKE 1/2 TABLET BY MOUTH THREE TIMES DAILY NEEDED FOR ANXIETY [facility] HYDROcodone -acetaminop hen 5-325 mg tablet 16 00:00: 00 Yes 2745 TAKE 1 TABLET BY MOUTH EVERY FOUR HOURS NEEDED FOR PAIN Indication s: chronic pain [facility] HYDROcodone -acetaminop hen 5-325 mg tablet 16 00:00: 00 09-21 00:00 :00 No 2745 TAKE 1 TABLET BY MOUTH EVERY FOUR HOURS NEEDED FOR PAIN Indication s: chronic pain [facility] HYDROcodone -acetaminop hen 5-325 mg tablet 16 00:00: 00 09-21 00:00 :00 No 2745 TAKE 1 TABLET BY MOUTH EVERY FOUR HOURS NEEDED FOR PAIN Indication s: [facility] -acetaminop hen 5-325 mg tablet 16 00:00: 00 09-21 00:00 :00 No 2745 TAKE 1 TABLET BY MOUTH EVERY FOUR HOURS NEEDED FOR PAIN Indication s: chronic pain [facility] HYDROcodone -acetaminop hen 5-325 mg tablet 2022--16 00:00: 00 09-21 00:00 :00 No 2745 TAKE 1 TABLET BY MOUTH EVERY FOUR HOURS NEEDED FOR PAIN Indication s: [facility] mg tablet 11-25 00:00: 00 Yes [id number] 109 500mg Take 1 tablet by mouth 3 (three) times daily as needed for Pain (scale 4-6). [facility] -ibuprofen 7.5-200 mg per tablet 11-25 00:00: 00 Yes 2745 TAKE 1 TABLET BY MOUTH EVERY SIX HOURS NEEDED FOR PAIN Indication s: chronic pain [facility] insulin detemir U-100 (LEVEMIR U-100 INSULIN) 100 unit/mL injection 11-25 00:00: 00 Yes [id number] 28U inject 28 Units under the skin at bedtime. [facility] hydroCHLORO thiazide 12.5 mg capsule 11-25 00:00: 00 Yes [id number] 12.5mg Take 1 capsule by mouth in the morning. [facility] methocarbam oL 500 mg tablet 11-25 00:00: 00 Yes [id number] 109 500mg Take 1 tablet by mouth 3 (three) times daily as needed for Pain (scale 4-6). [facility] HYDROcodone -ibuprofen 7.5-200 mg per tablet 11-25 00:00: 00 Yes 2745 TAKE 1 TABLET BY MOUTH EVERY SIX HOURS NEEDED FOR PAIN Indication s: chronic pain [facility] insulin detemir U-100 (LEVEMIR U-100 INSULIN) 100 unit/mL injection 11-25 00:00: 00 Yes [id number] 28U inject 28 Units under the skin at bedtime. [facility] hydroCHLORO thiazide 12.5 mg capsule 11-25 00:00: 00 Yes [id number] 12.5mg Take 1 capsule by mouth in the morning. [facility] methocarbam oL 500 mg tablet 11-25 00:00: 00 Yes [id number] 109 500mg Take 1 tablet by mouth 3 (three) times daily as needed for Pain (scale 4-6). [facility] HYDROcodone -ibuprofen 7.5-200 mg per tablet 11-25 00:00: 00 Yes 2745 TAKE 1 TABLET BY MOUTH EVERY SIX HOURS NEEDED FOR PAIN Indication s: chronic pain [facility] insulin detemir U-100 (LEVEMIR U-100 INSULIN) 100 unit/mL injection 11-25 00:00: 00 Yes [id number] 28U inject 28 Units under the skin at bedtime. [facility] hydroCHLORO thiazide 12.5 mg capsule 11-25 00:00: 00 Yes [id number] 12.5mg Take 1 capsule by mouth in the morning. [facility] methocarbam oL 500 mg tablet 11-25 00:00: 00 Yes [id number] 109 500mg Take 1 tablet by mouth 3 (three) times daily as needed for Pain (scale 4-6). [facility] HYDROcodone -ibuprofen 7.5-200 mg per tablet 11-25 00:00: 00 Yes 2745 TAKE 1 TABLET BY MOUTH EVERY SIX HOURS NEEDED FOR PAIN Indication s: chronic pain [facility] insulin detemir U-100 (LEVEMIR U-100 INSULIN) 100 unit/mL injection 11-25 00:00: 00 Yes [id number] 28U inject 28 Units under the skin at bedtime. [facility] hydroCHLORO thiazide 12.5 mg capsule 11-25 00:00: 00 Yes [id number] 12.5mg Take 1 capsule by mouth in the morning. [facility] methocarbam oL 500 mg tablet 11-25 00:00: 00 Yes [id number] 109 500mg Take 1 tablet by mouth 3 (three) times daily as needed for Pain (scale 4-6). [facility] HYDROcodone -ibuprofen 7.5-200 mg per tablet 11-25 00:00: 00 Yes 2745 TAKE 1 TABLET BY MOUTH EVERY SIX HOURS NEEDED FOR PAIN Indication s: chronic pain [facility] insulin detemir U-100 (LEVEMIR U-100 INSULIN) 100 unit/mL injection 11-25 00:00: 00 Yes [id number] 28U inject 28 Units under the skin at bedtime. [facility] hydroCHLORO thiazide 12.5 mg capsule 2022-0 11-25 00:00: 00 Yes [id number] 12.5mg Take 1 capsule by mouth in the morning. [facility] methocarbam oL 500 mg tablet 0 11-25 00:00: 00 Yes [id number] 109 500mg Take 1 tablet by mouth 3 (three) times daily as needed for Pain (scale 4-6). [facility] insulin detemir U-100 (LEVEMIR U-100 INSULIN) 100 unit/mL injection 2022-0 11-25 00:00: 00 Yes [id number] 28U inject 28 Units under the skin at bedtime. [facility] hydroCHLORO thiazide 12.5 mg capsule 0 11-25 00:00: 00 Yes [id number] 12.5mg Take 1 capsule by mouth in the morning. [facility] methocarbam oL 500 mg tablet 0 11-25 00:00: 00 Yes [id number] 109 500mg Take 1 tablet by mouth 3 (three) times daily as needed for Pain (scale 4-6). [facility] insulin detemir U-100 (LEVEMIR U-100 INSULIN) 100 unit/mL injection 0 11-25 00:00: 00 Yes [id number] 28U inject 28 Units under the skin at bedtime. [facility] hydroCHLORO thiazide 12.5 mg capsule 0 11-25 00:00: 00 Yes [id number] 12.5mg Take 1 capsule by mouth in the morning. [facility] methocarbam oL 500 mg tablet 2022-0 11-25 00:00: 00 Yes [id number] 109 500mg Take 1 tablet by mouth 3 (three) times daily as needed for Pain (scale 4-6). [facility] insulin detemir U-100 (LEVEMIR U-100 INSULIN) 100 unit/mL injection 2022-0 11-25 00:00: 00 Yes [id number] 28U inject 28 Units under the skin at bedtime. [facility] hydroCHLORO thiazide 12.5 mg capsule 11-25 00:00: 00 Yes [id number] 12.5mg Take 1 capsule by mouth in the morning. [facility] methocarbam oL 500 mg tablet 11-25 00:00: 00 Yes [id number] 109 500mg Take 1 tablet by mouth 3 (three) times daily as needed for Pain (scale 4-6). [facility] insulin detemir U-100 (LEVEMIR U-100 INSULIN) 100 unit/mL injection 11-25 00:00: 00 Yes [id number] 28U inject 28 Units under the skin at bedtime. [facility] hydroCHLORO thiazide 12.5 mg capsule 11-25 00:00: 00 Yes [id number] 12.5mg Take 1 capsule by mouth in the morning. [facility] methocarbam oL 500 mg tablet 11-25 00:00: 00 Yes [id number] 109 500mg Take 1 tablet by mouth 3 (three) times daily as needed for Pain (scale 4-6). [facility] insulin detemir U-100 (LEVEMIR U-100 INSULIN) 100 unit/mL injection 11-25 00:00: 00 Yes [id number] 28U inject 28 Units under the skin at bedtime. [facility] hydroCHLORO thiazide 12.5 mg capsule 11-25 00:00: 00 Yes [id number] 12.5mg Take 1 capsule by mouth in the morning. [facility] methocarbam oL 500 mg tablet 11-25 00:00: 00 Yes [id number] 109 500mg Take 1 tablet by mouth 3 (three) times daily as needed for Pain (scale 4-6). [facility] insulin detemir U-100 (LEVEMIR U-100 INSULIN) 100 unit/mL injection 11-25 00:00: 00 Yes [id number] 28U inject 28 Units under the skin at bedtime. [facility] hydroCHLORO thiazide 12.5 mg capsule 11-25 00:00: 00 Yes [id number] 12.5mg Take 1 capsule by mouth in the morning. [facility] methocarbam oL 500 mg tablet 11-25 00:00: 00 Yes [id number] 109 500mg Take 1 tablet by mouth 3 (three) times daily as needed for Pain (scale 4-6). [facility] insulin detemir U-100 (LEVEMIR U-100 INSULIN) 100 unit/mL injection 11-25 00:00: 00 Yes [id number] 28U inject 28 Units under the skin at bedtime. [facility] hydroCHLORO thiazide 12.5 mg capsule 11-25 00:00: 00 Yes [id number] 12.5mg Take 1 capsule by mouth in the morning. [facility] methocarbam oL 500 mg tablet 11-25 00:00: 00 Yes [id number] 109 500mg Take 1 tablet by mouth 3 (three) times daily as needed for Pain (scale 4-6). [facility] insulin detemir U-100 (LEVEMIR U-100 INSULIN) 100 unit/mL injection 11-25 00:00: 00 Yes [id number] 28U inject 28 Units under the skin at bedtime. [facility] hydroCHLORO thiazide 12.5 mg capsule 11-25 00:00: 00 Yes [id number] 12.5mg Take 1 capsule by mouth in the morning. [facility] methocarbam oL 500 mg tablet 11-25 00:00: 00 Yes [id number] 109 500mg Take 1 tablet by mouth 3 (three) times daily as needed for Pain (scale 4-6). [facility] insulin detemir U-100 (LEVEMIR U-100 INSULIN) 100 unit/mL injection 11-25 00:00: 00 Yes [id number] 28U inject 28 Units under the skin at bedtime. [facility] hydroCHLORO thiazide 12.5 mg capsule 11-25 00:00: 00 Yes [id number] 12.5mg Take 1 capsule by mouth in the morning. [facility] methocarbam oL 500 mg tablet 11-25 00:00: 00 Yes [id number] 109 500mg Take 1 tablet by mouth 3 (three) times daily as needed for Pain (scale 4-6). [facility] insulin detemir U-100 (LEVEMIR U-100 INSULIN) 100 unit/mL injection 11-25 00:00: 00 Yes [id number] 28U inject 28 Units under the skin at bedtime. [facility] hydroCHLORO thiazide 12.5 mg capsule 11-25 00:00: 00 Yes [id number] 12.5mg Take 1 capsule by mouth in the morning. [facility] methocarbam oL 500 mg tablet 11-25 00:00: 00 Yes [id number] 109 500mg Take 1 tablet by mouth 3 (three) times daily as needed for Pain (scale 4-6). [facility] insulin detemir U-100 (LEVEMIR U-100 INSULIN) 100 unit/mL injection 11-25 00:00: 00 Yes [id number] 28U inject 28 Units under the skin at bedtime. [facility] hydroCHLORO thiazide 12.5 mg capsule 11-25 00:00: 00 Yes [id number] 12.5mg Take 1 capsule by mouth in the morning. [facility] methocarbam oL 500 mg tablet 11-25 00:00: 00 Yes [id number] 109 500mg Take 1 tablet by mouth 3 (three) times daily as needed for Pain (scale 4-6). [facility] insulin detemir U-100 (LEVEMIR U-100 INSULIN) 100 unit/mL injection 11-25 00:00: 00 Yes [id number] 28U inject 28 Units under the skin at bedtime. [facility] hydroCHLORO thiazide 12.5 mg capsule 11-25 00:00: 00 Yes [id number] 12.5mg Take 1 capsule by mouth in the morning. [facility] methocarbam oL 500 mg tablet 11-25 00:00: 00 Yes [id number] 109 500mg Take 1 tablet by mouth 3 (three) times daily as needed for Pain (scale 4-6). [facility] insulin detemir U-100 (LEVEMIR U-100 INSULIN) 100 unit/mL injection 11-25 00:00: 00 Yes [id number] 28U inject 28 Units under the skin at bedtime. [facility] hydroCHLORO thiazide 12.5 mg capsule 0 11-25 00:00: 00 Yes [id number] 12.5mg Take 1 capsule by mouth in the morning. [facility] methocarbam oL 500 mg tablet 11-25 00:00: 00 Yes [id number] 109 500mg Take 1 tablet by mouth 3 (three) times daily as needed for Pain (scale 4-6). [facility] insulin detemir U-100 (LEVEMIR U-100 INSULIN) 100 unit/mL injection 11-25 00:00: 00 Yes [id number] 28U inject 28 Units under the skin at bedtime. [facility] hydroCHLORO thiazide 12.5 mg capsule 11-25 00:00: 00 Yes [id number] 12.5mg Take 1 capsule by mouth in the morning. [facility] methocarbam oL 500 mg tablet 11-25 00:00: 00 Yes [id number] 109 500mg Take 1 tablet by mouth 3 (three) times daily as needed for Pain (scale 4-6). [facility] insulin detemir U-100 (LEVEMIR U-100 INSULIN) 100 unit/mL injection 11-25 00:00: 00 Yes [id number] 28U inject 28 Units under the skin at bedtime. [facility] hydroCHLORO thiazide 12.5 mg capsule 0 11-25 00:00: 00 Yes [id number] 12.5mg Take 1 capsule by mouth in the morning. [facility] methocarbam oL 500 mg tablet 11-25 00:00: 00 Yes [id number] 109 500mg Take 1 tablet by mouth 3 (three) times daily as needed for Pain (scale 4-6). [facility] insulin detemir U-100 (LEVEMIR U-100 INSULIN) 100 unit/mL injection 11-25 00:00: 00 Yes [id number] 28U inject 28 Units under the skin at bedtime. [facility] hydroCHLORO thiazide 12.5 mg capsule 11-25 00:00: 00 Yes [id number] 12.5mg Take 1 capsule by mouth in the morning. [facility] methocarbam oL 500 mg tablet 11-25 00:00: 00 Yes [id number] 109 500mg Take 1 tablet by mouth 3 (three) times daily as needed for Pain (scale 4-6). [facility] insulin detemir U-100 (LEVEMIR U-100 INSULIN) 100 unit/mL injection 11-25 00:00: 00 Yes [id number] 28U inject 28 Units under the skin at bedtime. [facility] hydroCHLORO thiazide 12.5 mg capsule 11-25 00:00: 00 Yes [id number] 12.5mg Take 1 capsule by mouth in the morning. [facility] methocarbam oL 500 mg tablet 11-25 00:00: 00 Yes [id number] 109 500mg Take 1 tablet by mouth 3 (three) times daily as needed for Pain (scale 4-6). [facility] insulin detemir U-100 (LEVEMIR U-100 INSULIN) 100 unit/mL injection 11-25 00:00: 00 Yes [id number] 28U inject 28 Units under the skin at bedtime. [facility] hydroCHLORO thiazide 12.5 mg capsule 11-25 00:00: 00 Yes [id number] 12.5mg Take 1 capsule by mouth in the morning. [facility] methocarbam oL 500 mg tablet 11-25 00:00: 00 Yes [id number] 109 500mg Take 1 tablet by mouth 3 (three) times daily as needed for Pain (scale 4-6). [facility] insulin detemir U-100 (LEVEMIR U-100 INSULIN) 100 unit/mL injection 11-25 00:00: 00 Yes [id number] [id number] inject 28 Units under the skin at bedtime. [facility] hydroCHLORO thiazide 12.5 mg capsule 11-25 00:00: 00 Yes [id number] 12.5mg Take 1 capsule by mouth in the morning. [facility] methocarbam oL 500 mg tablet 11-25 00:00: 00 Yes [id number] 109 500mg Take 1 tablet by mouth 3 (three) times daily as needed for Pain (scale 4-6). [facility] insulin detemir U-100 (LEVEMIR U-100 INSULIN) 100 unit/mL injection 11-25 00:00: 00 Yes [id number] [id number] inject 28 Units under the skin at bedtime. [facility] hydroCHLORO thiazide 12.5 mg capsule 11-25 00:00: 00 Yes [id number] 12.5mg Take 1 capsule by mouth in the morning. [facility] methocarbam oL 500 mg tablet 11-25 00:00: 00 Yes [id number] 109 500mg Take 1 tablet by mouth 3 (three) times daily as needed for Pain (scale 4-6). [facility] hydroCHLORO thiazide 12.5 mg capsule 11-25 00:00: 00 Yes [id number] 12.5mg Take 1 capsule by mouth in the morning. [facility] methocarbam oL 500 mg tablet 11-25 00:00: 00 Yes [id number] 109 500mg Take 1 tablet by mouth 3 (three) times daily as needed for Pain (scale 4-6). [facility] hydroCHLORO thiazide 12.5 mg capsule 11-25 00:00: 00 Yes [id number] 12.5mg Take 1 capsule by mouth in the morning. [facility] methocarbam oL 500 mg tablet 11-25 00:00: 00 Yes [id number] 109 500mg Take 1 tablet by mouth 3 (three) times daily as needed for Pain (scale 4-6). [facility] hydroCHLORO thiazide 12.5 mg capsule 2023-0 2-23 00:00: 00 Yes [id number] 12.5mg Take 1 capsule by mouth in the morning. [facility] methocarbam oL 500 mg tablet 2022-0 2-23 00:00: 00 Yes [id number] 109 500mg Take 1 tablet by mouth 3 (three) times daily as needed for Pain (scale 4-6). [facility] hydroCHLORO thiazide 12.5 mg capsule 2022-0 223 00:00: 00 Yes [id number] 12.5mg Take 1 capsule by mouth in the morning. [facility] methocarbam oL 500 mg tablet 2022-0 11-25 00:00: 00 Yes [id number] 109 500mg Take 1 tablet by mouth 3 (three) times daily as needed for Pain (scale 4-6). [facility] hydroCHLORO thiazide 12.5 mg capsule 2022-0 23 00:00: 00 Yes [id number] 12.5mg Take 1 capsule by mouth in the morning. [facility] methocarbam oL 500 mg tablet 2022-0 11-25 00:00: 00 Yes [id number] 109 500mg Take 1 tablet by mouth 3 (three) times daily as needed for Pain (scale 4-6). [facility] hydroCHLORO thiazide 12.5 mg capsule 2022-0 11-25 00:00: 00 Yes [id number] 12.5mg Take 1 capsule by mouth in the morning. [facility] methocarbam oL 500 mg tablet 2022-0 11-25 00:00: 00 Yes [id number] 109 500mg Take 1 tablet by mouth 3 (three) times daily as needed for Pain (scale 4-6). [facility] hydroCHLORO thiazide 12.5 mg capsule 3-0 2-23 00:00: 00 Yes [id number] 12.5mg Take 1 capsule by mouth in the morning. [facility] methocarbam oL 500 mg tablet 3-0 2-23 00:00: 00 Yes [id number] 109 500mg Take 1 tablet by mouth 3 (three) times daily as needed for Pain (scale 4-6). [facility] hydroCHLORO thiazide 12.5 mg capsule 2023-0 2-23 00:00: 00 Yes [id number] 12.5mg Take 1 capsule by mouth in the morning. [facility] methocarbam oL 500 mg tablet 3-0 2-23 00:00: 00 Yes [id number] 109 500mg Take 1 tablet by mouth 3 (three) times daily as needed for Pain (scale 4-6). [facility] hydroCHLORO thiazide 12.5 mg capsule 3-0 2-23 00:00: 00 Yes [id number] 12.5mg Take 1 capsule by mouth in the morning. [facility] methocarbam oL 500 mg tablet 3-0 2-23 00:00: 00 Yes [id number] 109 500mg Take 1 tablet by mouth 3 (three) times daily as needed for Pain (scale 4-6). [facility] hydroCHLORO thiazide 12.5 mg capsule 3-0 2-23 00:00: 00 Yes [id number] 12.5mg Take 1 capsule by mouth in the morning. [facility] methocarbam oL 500 mg tablet 3-0 2-23 00:00: 00 Yes [id number] 109 500mg Take 1 tablet by mouth 3 (three) times daily as needed for Pain (scale 4-6). [facility] hydroCHLORO thiazide 12.5 mg capsule 3-0 2-23 00:00: 00 Yes [id number] 12.5mg Take 1 capsule by mouth in the morning. [facility] methocarbam oL 500 mg tablet 3-0 2-23 00:00: 00 Yes [id number] 109 500mg Take 1 tablet by mouth 3 (three) times daily as needed for Pain (scale 4-6). [facility] hydroCHLORO thiazide 12.5 mg capsule 3-0 2-23 00:00: 00 Yes [id number] 12.5mg Take 1 capsule by mouth in the morning. [facility] methocarbam oL 500 mg tablet 2023-0 2-23 00:00: 00 Yes [id number] 109 500mg Take 1 tablet by mouth 3 (three) times daily as needed for Pain (scale 4-6). [facility] hydroCHLORO thiazide 12.5 mg capsule 3-0 2-23 00:00: 00 Yes [id number] 12.5mg Take 1 capsule by mouth in the morning. [facility] methocarbam oL 500 mg tablet 3-0 2-23 00:00: 00 Yes [id number] 109 500mg Take 1 tablet by mouth 3 (three) times daily as needed for Pain (scale 4-6). [facility] hydroCHLORO thiazide 12.5 mg capsule 3-0 2-23 00:00: 00 Yes [id number] 12.5mg Take 1 capsule by mouth in the morning. [facility] methocarbam oL 500 mg tablet 3-0 2-23 00:00: 00 Yes [id number] 109 500mg Take 1 tablet by mouth 3 (three) times daily as needed for Pain (scale 4-6). [facility] hydroCHLORO thiazide 12.5 mg capsule 3-0 2-23 00:00: 00 Yes [id number] 12.5mg Take 1 capsule by mouth in the morning. [facility] methocarbam oL 500 mg tablet 3-0 223 00:00: 00 Yes [id number] 109 500mg Take 1 tablet by mouth 3 (three) times daily as needed for Pain (scale 4-6). [facility] hydroCHLORO thiazide 12.5 mg capsule 3-0 2-23 00:00: 00 Yes [id number] 12.5mg Take 1 capsule by mouth in the morning. [facility] methocarbam oL 500 mg tablet 3-0 2-23 00:00: 00 Yes [id number] 109 500mg Take 1 tablet by mouth 3 (three) times daily as needed for Pain (scale 4-6). [facility] hydroCHLORO thiazide 12.5 mg capsule 3-0 2-23 00:00: 00 Yes [id number] 12.5mg Take 1 capsule by mouth in the morning. [facility] methocarbam oL 500 mg tablet 3-0 2-23 00:00: 00 Yes [id number] 109 500mg Take 1 tablet by mouth 3 (three) times daily as needed for Pain (scale 4-6). [facility] hydroCHLORO thiazide 12.5 mg capsule 3-0 2-23 00:00: 00 Yes [id number] 12.5mg Take 1 capsule by mouth in the morning. [facility] methocarbam oL 500 mg tablet 2022-0 2-23 00:00: 00 Yes [id number] 109 500mg Take 1 tablet by mouth 3 (three) times daily as needed for Pain (scale 4-6). [facility] hydroCHLORO thiazide 12.5 mg capsule 3-0 2-23 00:00: 00 Yes [id number] 12.5mg Take 1 capsule by mouth in the morning. [facility] methocarbam oL 500 mg tablet 2022-0 2-23 00:00: 00 Yes [id number] 109 500mg Take 1 tablet by mouth 3 (three) times daily as needed for Pain (scale 4-6). [facility] hydroCHLORO thiazide 12.5 mg capsule 2022-0 2-23 00:00: 00 Yes [id number] 12.5mg Take 1 capsule by mouth in the morning. [facility] methocarbam oL 500 mg tablet 2022-0 223 00:00: 00 Yes [id number] 109 500mg Take 1 tablet by mouth 3 (three) times daily as needed for Pain (scale 4-6). [facility] hydroCHLORO thiazide 12.5 mg capsule 3-0 2-23 00:00: 00 Yes [id number] 12.5mg Take 1 capsule by mouth in the morning. [facility] methocarbam oL 500 mg tablet 3-0 2-23 00:00: 00 Yes [id number] 109 500mg Take 1 tablet by mouth 3 (three) times daily as needed for Pain (scale 4-6). [facility] hydroCHLORO thiazide 12.5 mg capsule 3-0 2-23 00:00: 00 Yes [id number] 12.5mg Take 1 capsule by mouth in the morning. [facility] methocarbam oL 500 mg tablet 3-0 2-23 00:00: 00 Yes [id number] 109 500mg Take 1 tablet by mouth 3 (three) times daily as needed for Pain (scale 4-6). [facility] hydroCHLORO thiazide 12.5 mg capsule 0 11-25 00:00: 00 Yes [id number] 12.5mg Take 1 capsule by mouth in the morning. [facility] methocarbam oL 500 mg tablet 0 11-25 00:00: 00 Yes [id number] 109 500mg Take 1 tablet by mouth 3 (three) times daily as needed for Pain (scale 4-6). [facility] methocarbam oL 500 mg tablet 0 11-25 00:00: 00 Yes [id number] 109 500mg Take 1 tablet by mouth 3 (three) times daily as needed for Pain (scale 4-6). [facility] methocarbam oL 500 mg tablet 11-25 00:00: 00 Yes [id number] 109 500mg Take 1 tablet by mouth 3 (three) times daily as needed for Pain (scale 4-6). [facility] methocarbam oL 500 mg tablet 0 11-25 00:00: 00 Yes [id number] 109 500mg Take 1 tablet by mouth 3 (three) times daily as needed for Pain (scale 4-6). [facility] methocarbam oL 500 mg tablet 0 11-25 00:00: 00 Yes [id number] 109 500mg Take 1 tablet by mouth 3 (three) times daily as needed for Pain (scale 4-6). [facility] methocarbam oL 500 mg tablet 0 11-25 00:00: 00 Yes [id number] 109 500mg Take 1 tablet by mouth 3 (three) times daily as needed for Pain (scale 4-6). [facility] methocarbam oL 500 mg tablet 0 11-25 00:00: 00 Yes [id number] 109 500mg Take 1 tablet by mouth 3 (three) times daily as needed for Pain (scale 4-6). [facility] methocarbam oL 500 mg tablet 0 11-25 00:00: 00 Yes [id number] 109 500mg Take 1 tablet by mouth 3 (three) times daily as needed for Pain (scale 4-6). [facility] methocarbam oL 500 mg tablet 11-25 00:00: 00 Yes [id number] 109 500mg Take 1 tablet by mouth 3 (three) times daily as needed for Pain (scale 4-6). [facility] methocarbam oL 500 mg tablet 11-25 00:00: 00 Yes [id number] 109 500mg Take 1 tablet by mouth 3 (three) times daily as needed for Pain (scale 4-6). [facility] methocarbam oL 500 mg tablet 11-25 00:00: 00 Yes [id number] 109 500mg Take 1 tablet by mouth 3 (three) times daily as needed for Pain (scale 4-6). [facility] hydroCHLORO thiazide 12.5 mg capsule 11-25 00:00: 00 09-21 00:00 :00 No [id number] 12.5mg Take 1 capsule by mouth in the morning. [facility] hydroCHLORO thiazide 12.5 mg capsule 11-25 00:00: 00 09-21 00:00 :00 No [id number] 12.5mg Take 1 capsule by mouth in the morning. [facility] hydroCHLORO thiazide 12.5 mg capsule 11-25 00:00: 00 09-21 00:00 :00 No [id number] 12.5mg Take 1 capsule by mouth in the morning. [facility] hydroCHLORO thiazide 12.5 mg capsule 11-25 00:00: 00 09-21 00:00 :00 No [id number] 12.5mg Take 1 capsule by mouth in the morning. [facility] insulin detemir U-100 (LEVEMIR U-100 INSULIN) 100 unit/mL injection 11-25 00:00: 00 03-10 00:00 :00 No [id number] 28U inject 28 Units under the skin at bedtime. [facility] insulin detemir U-100 (LEVEMIR U-100 INSULIN) 100 unit/mL injection 11-25 00:00: 03-10 00:00 :00 No [id number] [id number] inject 28 Units under the skin at bedtime. [facility] insulin detemir U-100 (LEVEMIR U-100 INSULIN) 100 unit/mL injection 11-25 00:00: 00 03-10 00:00 :00 No [id number] 28U inject 28 Units under the skin at bedtime. [facility] HYDROcodone -ibuprofen 7.5-200 mg per tablet 11-25 00:00: 00 12-17 00:00 :00 No [id number] TAKE 1 TABLET BY MOUTH EVERY SIX HOURS NEEDED FOR PAIN Indication s: chronic pain [facility] insulin detemir U-100 (LEVEMIR U-100 INSULIN) 100 unit/mL injection 10-25 00:00: 00 Yes [id number] 28U inject 28 Units under the skin at bedtime. [facility] HYDROcodone -ibuprofen 7.5-200 mg per tablet 10-25 00:00: 00 Yes [id number] TAKE 1 TABLET BY MOUTH EVERY SIX HOURS NEEDED FOR PAIN Indication s: chronic pain [facility] insulin detemir U-100 (LEVEMIR U-100 INSULIN) 100 unit/mL injection 10-25 00:00: 00 Yes [id number] [id number] inject 28 Units under the skin at bedtime. [facility] HYDROcodone -ibuprofen 7.5-200 mg per tablet 10-25 00:00: 00 Yes [id number] TAKE 1 TABLET BY MOUTH EVERY SIX HOURS NEEDED FOR PAIN Indication s: chronic pain [facility] insulin detemir U-100 (LEVEMIR U-100 INSULIN) 100 unit/mL injection 10-25 00:00: 00 Yes [id number] 28U inject 28 Units under the skin at bedtime. [facility] HYDROcodone -ibuprofen 7.5-200 mg per tablet 10-25 00:00: 00 Yes [id number] TAKE 1 TABLET BY MOUTH EVERY SIX HOURS NEEDED FOR PAIN Indication s: chronic pain [facility] insulin detemir U-100 (LEVEMIR U-100 INSULIN) 100 unit/mL injection 10-25 00:00: 00 Yes [id number] [id number] inject 28 Units under the skin at bedtime. [facility] HYDROcodone -ibuprofen 7.5-200 mg per tablet 10-25 00:00: 00 Yes [id number] TAKE 1 TABLET BY MOUTH EVERY SIX HOURS NEEDED FOR PAIN Indication s: chronic pain [facility] insulin detemir U-100 (LEVEMIR U-100 INSULIN) 100 unit/mL injection 10-25 00:00: 00 11-25 00:00 :00 No [id number] 28U inject 28 Units under the skin at bedtime. [facility] HYDROcodone -ibuprofen 7.5-200 mg per tablet 10-25 00:00: 00 11-25 00:00 :00 No [id number] TAKE 1 TABLET BY MOUTH EVERY SIX HOURS NEEDED FOR PAIN Indication s: chronic pain [facility] insulin detemir U-100 (LEVEMIR U-100 INSULIN) 100 unit/mL injection 10-25 00:00: 00 11-25 00:00 :00 No [id number] 28U inject 28 Units under the skin at bedtime. [facility] HYDROcodone -ibuprofen 7.5-200 mg per tablet 10-25 00:00: 00 11-25 00:00 :00 No [id number] TAKE 1 TABLET BY MOUTH EVERY SIX HOURS NEEDED FOR PAIN Indication s: chronic pain [facility] HYDROcodone -ibuprofen 7.5-200 mg per tablet 2021-10 00:00: 00 Yes [id number] TAKE 1 TABLET BY MOUTH EVERY SIX HOURS NEEDED FOR PAIN Indication s: chronic pain [facility] HYDROcodone -ibuprofen 7.5-200 mg per tablet 2021-10 00:00: 00 10-25 00:00 :00 No [id number] TAKE 1 TABLET BY MOUTH EVERY SIX HOURS NEEDED FOR PAIN Indication s: chronic pain [facility] HYDROcodone -ibuprofen 7.5-200 mg per tablet 2021-10 00:00: 00 10-25 00:00 :00 No [id number] TAKE 1 TABLET BY MOUTH EVERY SIX HOURS NEEDED FOR PAIN Indication s: chronic pain [facility] ALPRAZolam 0.25 mg tablet 2021-10 00:00: 00 Yes [id number] TAKE 1/2 TABLET BY MOUTH THREE TIMES DAILY NEEDED FOR ANXIETY [facility] escitalopra m oxalate (LEXAPRO) 5 mg tablet 2021-10 00:00: 00 Yes [id number] 5mg Take 1 tablet by mouth in the morning. [facility] methocarbam oL 500 mg tablet 2021-10 00:00: 00 Yes [id number] 109 500mg Take 1 tablet by mouth 3 (three) times daily as needed for Pain (scale 4-6). [facility] ALPRAZolam 0.25 mg tablet 2021-10 00:00: 00 Yes [id number] TAKE 1/2 TABLET BY MOUTH THREE TIMES DAILY NEEDED FOR ANXIETY [facility] escitalopra m oxalate (LEXAPRO) 5 mg tablet 2021-10 00:00: 00 Yes [id number] 5mg Take 1 tablet by mouth in the morning. [facility] methocarbam oL 500 mg tablet 2021-10 00:00: 00 Yes [id number] 109 500mg Take 1 tablet by mouth 3 (three) times daily as needed for Pain (scale 4-6). [facility] ALPRAZolam 0.25 mg tablet 2021-10 00:00: 00 Yes [id number] TAKE 1/2 TABLET BY MOUTH THREE TIMES DAILY NEEDED FOR ANXIETY [facility] escitalopra m oxalate (LEXAPRO) 5 mg tablet 2021-10 00:00: 00 Yes [id number] 5mg Take 1 tablet by mouth in the morning. [facility] methocarbam oL 500 mg tablet 2021-10 00:00: 00 Yes [id number] 109 500mg Take 1 tablet by mouth 3 (three) times daily as needed for Pain (scale 4-6). [facility] ALPRAZolam 0.25 mg tablet 2021-10 00:00: 00 Yes [id number] TAKE 1/2 TABLET BY MOUTH THREE TIMES DAILY NEEDED FOR ANXIETY [facility] (LEXAPRO) 5 mg tablet 2021-10 00:00: 00 Yes [id number] 5mg Take 1 tablet by mouth in the morning. [facility] methocarbam oL 500 mg tablet 2021-10 00:00: 00 Yes [id number] 109 500mg Take 1 tablet by mouth 3 (three) times daily as needed for Pain (scale 4-6). [facility] ALPRAZolam 0.25 mg tablet 2021-10 00:00: 00 Yes [id number] TAKE 1/2 TABLET BY MOUTH THREE TIMES DAILY NEEDED FOR ANXIETY [facility] escitalopra m oxalate (LEXAPRO) 5 mg tablet 2021-10 00:00: 00 Yes [id number] 5mg Take 1 tablet by mouth in the morning. [facility] methocarbam oL 500 mg tablet 2021-10 00:00: 00 Yes [id number] 109 500mg Take 1 tablet by mouth 3 (three) times daily as needed for Pain (scale 4-6). [facility] ALPRAZolam 0.25 mg tablet 2021-10 00:00: 00 Yes [id number] TAKE 1/2 TABLET BY MOUTH THREE TIMES DAILY NEEDED FOR ANXIETY [facility] escitalopra m oxalate (LEXAPRO) 5 mg tablet 2021-10 00:00: 00 Yes [id number] 5mg Take 1 tablet by mouth in the morning. [facility] methocarbam oL 500 mg tablet 2021-10 00:00: 00 Yes [id number] 109 500mg Take 1 tablet by mouth 3 (three) times daily as needed for Pain (scale 4-6). [facility] ALPRAZolam 0.25 mg tablet 2021-10 00:00: 00 Yes [id number] TAKE 1/2 TABLET BY MOUTH THREE TIMES DAILY NEEDED FOR ANXIETY [facility] escitalopra m oxalate (LEXAPRO) 5 mg tablet 2021-10 00:00: 00 Yes [id number] 5mg Take 1 tablet by mouth in the morning. [facility] methocarbam oL 500 mg tablet 2021-10 00:00: 00 Yes [id number] 109 500mg Take 1 tablet by mouth 3 (three) times daily as needed for Pain (scale 4-6). [facility] ALPRAZolam 0.25 mg tablet 2021-10 00:00: 00 Yes [id number] TAKE 1/2 TABLET BY MOUTH THREE TIMES DAILY NEEDED FOR ANXIETY [facility] escitalopra m oxalate (LEXAPRO) 5 mg tablet 2021-10 00:00: 00 Yes [id number] 5mg Take 1 tablet by mouth in the morning. [facility] methocarbam oL 500 mg tablet 2021-10 00:00: 00 Yes [id number] 109 500mg Take 1 tablet by mouth 3 (three) times daily as needed for Pain (scale 4-6). [facility] ALPRAZolam 0.25 mg tablet 2021-10 00:00: 00 Yes [id number] TAKE 1/2 TABLET BY MOUTH THREE TIMES DAILY NEEDED FOR ANXIETY [facility] escitalopra m oxalate (LEXAPRO) 5 mg tablet 2021-10 00:00: 00 Yes [id number] 5mg Take 1 tablet by mouth in the morning. [facility] methocarbam oL 500 mg tablet 2021-10 00:00: 00 Yes [id number] 109 500mg Take 1 tablet by mouth 3 (three) times daily as needed for Pain (scale 4-6). [facility] ALPRAZolam 0.25 mg tablet 2021-10 00:00: 00 Yes [id number] TAKE 1/2 TABLET BY MOUTH THREE TIMES DAILY NEEDED FOR ANXIETY [facility] escitalopra m oxalate (LEXAPRO) 5 mg tablet 2021-10 00:00: 00 Yes [id number] 5mg Take 1 tablet by mouth in the morning. [facility] ALPRAZolam 0.25 mg tablet 2021-10 00:00: 00 Yes [id number] TAKE 1/2 TABLET BY MOUTH THREE TIMES DAILY NEEDED FOR ANXIETY [facility] escitalopra m oxalate (LEXAPRO) 5 mg tablet 2021-10 00:00: 00 Yes [id number] 5mg Take 1 tablet by mouth in the morning. [facility] escitalopra m oxalate (LEXAPRO) 5 mg tablet 2021-10 00:00: 00 Yes [id number] 5mg Take 1 tablet by mouth in the morning. [facility] escitalopra m oxalate (LEXAPRO) 5 mg tablet 2021-10 00:00: 00 Yes [id number] 5mg Take 1 tablet by mouth in the morning. [facility] escitalopra m oxalate (LEXAPRO) 5 mg tablet 2021-10 00:00: 00 Yes [id number] 5mg Take 1 tablet by mouth in the morning. [facility] escitalopra m oxalate (LEXAPRO) 5 mg tablet 2021-10 00:00: 00 Yes [id number] 5mg Take 1 tablet by mouth in the morning. [facility] escitalopra m oxalate (LEXAPRO) 5 mg tablet 2021-10 00:00: 00 Yes [id number] 5mg Take 1 tablet by mouth in the morning. [facility] escitalopra m oxalate (LEXAPRO) 5 mg tablet 2021-10 00:00: 00 Yes [id number] 5mg Take 1 tablet by mouth in the morning. [facility] escitalopra m oxalate (LEXAPRO) 5 mg tablet 2021-10 00:00: 00 Yes [id number] 5mg Take 1 tablet by mouth in the morning. [facility] escitalopra m oxalate (LEXAPRO) 5 mg tablet 2021-10 00:00: 00 Yes [id number] 5mg Take 1 tablet by mouth in the morning. [facility] escitalopra m oxalate (LEXAPRO) 5 mg tablet 2021-10 00:00: 00 Yes [id number] 5mg Take 1 tablet by mouth in the morning. [facility] escitalopra m oxalate (LEXAPRO) 5 mg tablet 2021-10 00:00: 00 Yes [id number] 5mg Take 1 tablet by mouth in the morning. [facility] escitalopra m oxalate (LEXAPRO) 5 mg tablet 2021-10 00:00: 00 Yes [id number] 5mg Take 1 tablet by mouth in the morning. [facility] escitalopra m oxalate (LEXAPRO) 5 mg tablet 2021-10 00:00: 00 Yes [id number] 5mg Take 1 tablet by mouth in the morning. [facility] escitalopra m oxalate (LEXAPRO) 5 mg tablet 2021-10 00:00: 00 Yes [id number] 5mg Take 1 tablet by mouth in the morning. [facility] escitalopra m oxalate (LEXAPRO) 5 mg tablet 2021-10 00:00: 00 Yes [id number] 5mg Take 1 tablet by mouth in the morning. [facility] escitalopra m oxalate (LEXAPRO) 5 mg tablet 2021-10 00:00: 00 Yes [id number] 5mg Take 1 tablet by mouth in the morning. [facility] escitalopra m oxalate (LEXAPRO) 5 mg tablet 2021-10 00:00: 00 Yes [id number] 5mg Take 1 tablet by mouth in the morning. [facility] escitalopra m oxalate (LEXAPRO) 5 mg tablet 2021-10 00:00: 00 Yes [id number] 5mg Take 1 tablet by mouth in the morning. [facility] escitalopra m oxalate (LEXAPRO) 5 mg tablet 2021-10 00:00: 00 Yes [id number] 5mg Take 1 tablet by mouth in the morning. [facility] escitalopra m oxalate (LEXAPRO) 5 mg tablet 2021-10 00:00: 00 Yes [id number] 5mg Take 1 tablet by mouth in the morning. [facility] escitalopra m oxalate (LEXAPRO) 5 mg tablet 2021-10 00:00: 00 Yes [id number] 5mg Take 1 tablet by mouth in the morning. [facility] escitalopra m oxalate (LEXAPRO) 5 mg tablet 2021-10 00:00: 00 Yes [id number] 5mg Take 1 tablet by mouth in the morning. [facility] escitalopra m oxalate (LEXAPRO) 5 mg tablet 2021-10 00:00: 00 Yes [id number] 5mg Take 1 tablet by mouth in the morning. [facility] escitalopra m oxalate (LEXAPRO) 5 mg tablet 2021-10 00:00: 00 Yes [id number] 5mg Take 1 tablet by mouth in the morning. [facility] escitalopra m oxalate (LEXAPRO) 5 mg tablet 2021-10 00:00: 00 Yes [id number] 5mg Take 1 tablet by mouth in the morning. [facility] escitalopra m oxalate (LEXAPRO) 5 mg tablet 2021-10 00:00: 00 Yes [id number] 5mg Take 1 tablet by mouth in the morning. [facility] escitalopra m oxalate (LEXAPRO) 5 mg tablet 2021-10 00:00: 00 Yes [id number] 5mg Take 1 tablet by mouth in the morning. [facility] escitalopra m oxalate (LEXAPRO) 5 mg tablet 2021-10 00:00: 00 Yes [id number] 5mg Take 1 tablet by mouth in the morning. [facility] escitalopra m oxalate (LEXAPRO) 5 mg tablet 2021-10 00:00: 00 Yes [id number] 5mg Take 1 tablet by mouth in the morning. [facility] escitalopra m oxalate (LEXAPRO) 5 mg tablet 2021-10 00:00: 00 Yes [id number] 5mg Take 1 tablet by mouth in the morning. [facility] escitalopra m oxalate (LEXAPRO) 5 mg tablet 2021-10 00:00: 00 04-12 00:00 :00 No [id number] 5mg Take 1 tablet by mouth in the morning. [facility] ALPRAZolam 0.25 mg tablet 2021-10 00:00: 00 12-16 00:00 :00 No [id number] TAKE 1/2 TABLET BY MOUTH THREE TIMES DAILY NEEDED FOR ANXIETY [facility] ALPRAZolam 0.25 mg tablet 2021-10 00:00: 00 12-16 00:00 :00 No [id number] TAKE 1/2 TABLET BY MOUTH THREE TIMES DAILY NEEDED FOR ANXIETY [facility] ALPRAZolam 0.25 mg tablet 2021-10 00:00: 00 12-16 00:00 :00 No [id number] TAKE 1/2 TABLET BY MOUTH THREE TIMES DAILY NEEDED FOR ANXIETY [facility] methocarbam oL 500 mg tablet 2021-10 00:00: 00 11-25 00:00 :00 No [id number] 109 500mg Take 1 tablet by mouth 3 (three) times daily as needed for Pain (scale 4-6). [facility] methocarbam oL 500 mg tablet 2021-10 00:00: 00 11-25 00:00 :00 No [id number] 109 500mg Take 1 tablet by mouth 3 (three) times daily as needed for Pain (scale 4-6). [facility] HYDROcodone -ibuprofen 7.5-200 mg per tablet 2021-10 00:00: 00 Yes [id number] TAKE 1 TABLET BY MOUTH EVERY SIX HOURS NEEDED FOR PAIN Indication s: chronic pain [facility] HYDROcodone -ibuprofen 7.5-200 mg per tablet 2021-10 00:00: 00 Yes 2745 TAKE 1 TABLET BY MOUTH EVERY SIX HOURS NEEDED FOR PAIN Indication s: chronic pain [facility] HYDROcodone -ibuprofen 7.5-200 mg per tablet 2021-10 00:00: 00 Yes 2745 TAKE 1 TABLET BY MOUTH EVERY SIX HOURS NEEDED FOR PAIN Indication s: chronic pain [facility] HYDROcodone -ibuprofen 7.5-200 mg per tablet 2021-10 00:00: 00 Yes 2745 TAKE 1 TABLET BY MOUTH EVERY SIX HOURS NEEDED FOR PAIN Indication s: chronic pain [facility] HYDROcodone -ibuprofen 7.5-200 mg per tablet 2021-10 00:00: 00 Yes 2745 TAKE 1 TABLET BY MOUTH EVERY SIX HOURS NEEDED FOR PAIN Indication s: chronic pain [facility] HYDROcodone -ibuprofen 7.5-200 mg per tablet 2021-10 00:00: 00 09-29 00:00 :00 No 2745 TAKE 1 TABLET BY MOUTH EVERY SIX HOURS NEEDED FOR PAIN Indication s: chronic pain [facility] HYDROcodone -ibuprofen 7.5-200 mg per tablet 2021-10 0-05 00:00: 00 Yes 2745 TAKE 1 TABLET BY MOUTH EVERY SIX HOURS NEEDED FOR PAIN Indication s: chronic pain [facility] HYDROcodone -ibuprofen 7.5-200 mg per tablet 2021-10 0-05 00:00: 00 08-23 00:00 :00 No 2745 TAKE 1 TABLET BY MOUTH EVERY SIX HOURS NEEDED FOR PAIN Indication s: chronic pain [facility] losartan 50 mg tablet 2021-10 0-04 00:00: 00 Yes [facility] losartan 50 mg tablet 2021-10 0-04 00:00: 00 Yes [facility] losartan 50 mg tablet 2021-10 0-04 00:00: 00 Yes [facility] losartan 50 mg tablet 2021-10 0-04 00:00: 00 Yes [facility] losartan 50 mg tablet 2021-10 0-04 00:00: 00 Yes [facility] losartan 50 mg tablet 2021-10 0-04 00:00: 00 Yes [facility] losartan 50 mg tablet 2021-10 0-04 00:00: 00 Yes [facility] losartan 50 mg tablet 2021-10 0-04 00:00: 00 Yes [facility] losartan 50 mg tablet 2021-10 0-04 00:00: 00 Yes [facility] losartan 50 mg tablet 2021-10 0-04 00:00: 00 Yes [facility] losartan 50 mg tablet 2021-10 0-04 00:00: 00 Yes [facility] losartan 50 mg tablet 2021-10 0-04 00:00: 00 Yes [facility] losartan 50 mg tablet 2021-10 0-04 00:00: 00 Yes [facility] losartan 50 mg tablet 2021-10 0-04 00:00: 00 Yes [facility] losartan 50 mg tablet 2021-10 0-04 00:00: 00 Yes [facility] losartan 50 mg tablet 2021-10 0-04 00:00: 00 Yes [facility] losartan 50 mg tablet 2021-10 0-04 00:00: 00 Yes [facility] losartan 50 mg tablet 2021-10 0-04 00:00: 00 Yes [facility] losartan 50 mg tablet 2021-10 0-04 00:00: 00 Yes [facility] losartan 50 mg tablet 2021-10 0-04 00:00: 00 Yes [facility] losartan 50 mg tablet 2021-10 0-04 00:00: 00 Yes [facility] losartan 50 mg tablet 2021-10 0-04 00:00: 00 Yes [facility] losartan 50 mg tablet 2021-10 0-04 00:00: 00 Yes [facility] losartan 50 mg tablet 2021-10 0-04 00:00: 00 Yes [facility] losartan 50 mg tablet 2021-10 0-04 00:00: 00 Yes [facility] losartan 50 mg tablet 2021-10 0-04 00:00: 00 Yes [facility] losartan 50 mg tablet 2021-10 0-04 00:00: 00 Yes [facility] losartan 50 mg tablet 2021-10 0-04 00:00: 00 Yes [facility] losartan 50 mg tablet 2021-10 0-04 00:00: 00 Yes [facility] losartan 50 mg tablet 2021-10 0-04 00:00: 00 Yes [facility] losartan 50 mg tablet 2021-10 0-04 00:00: 00 Yes [facility] losartan 50 mg tablet 2021-10 0-04 00:00: 00 Yes [facility] losartan 50 mg tablet 2021-10 0-04 00:00: 00 Yes [facility] losartan 50 mg tablet 2021-10 0-04 00:00: 00 Yes [facility] losartan 50 mg tablet 2021-10 0-04 00:00: 00 Yes [facility] losartan 50 mg tablet 2021-10 0-04 00:00: 00 Yes [facility] losartan 50 mg tablet 2021-10 0-04 00:00: 00 Yes [facility] losartan 50 mg tablet 2021-10 0-04 00:00: 00 Yes [facility] losartan 50 mg tablet 2021-10 0-04 00:00: 00 Yes [facility] losartan 50 mg tablet 2021-10 0-04 00:00: 00 Yes [facility] losartan 50 mg tablet 2021-10 0-04 00:00: 00 Yes [facility] losartan 50 mg tablet 2021-10 0-04 00:00: 00 Yes [facility] losartan 50 mg tablet 2021-10 0-04 00:00: 00 Yes [facility] losartan 50 mg tablet 2021-10 0-04 00:00: 00 Yes [facility] losartan 50 mg tablet 2021-10 0-04 00:00: 00 Yes [facility] losartan 50 mg tablet 2021-10 0-04 00:00: 00 Yes [facility] losartan 50 mg tablet 2021-10 0-04 00:00: 00 Yes [facility] losartan 50 mg tablet 2021-10 0-04 00:00: 00 Yes [facility] losartan 50 mg tablet 2021-10 0-04 00:00: 00 Yes [facility] losartan 50 mg tablet 2021-10 0-04 00:00: 00 Yes [facility] losartan 50 mg tablet 2021-10 0-04 00:00: 00 Yes [facility] losartan 50 mg tablet 2021-10 0-04 00:00: 00 Yes [facility] losartan 50 mg tablet 2021-10 0-04 00:00: 00 Yes [facility] losartan 50 mg tablet 2021-10 0-04 00:00: 00 Yes [facility] losartan 50 mg tablet 2021-10 0-04 00:00: 00 Yes [facility] losartan 50 mg tablet 2021-10 0-04 00:00: 00 Yes [facility] losartan 50 mg tablet 2021-10 0-04 00:00: 00 Yes [facility] losartan 50 mg tablet 2021-10 0-04 00:00: 00 09-21 00:00 :00 No [facility] losartan 50 mg tablet 2021-10 0-04 00:00: 00 09-21 00:00 :00 No [facility] losartan 50 mg tablet 2021-10 0-04 00:00: 00 09-21 00:00 :00 No [facility] losartan 50 mg tablet 2021-10 0-04 00:00: 00 09-21 00:00 :00 No [facility] gabapentin 300 mg capsule 0 06-16 00:00: 00 Yes 300mg Take 1 capsule by mouth every evening. [facility] gabapentin 300 mg capsule 0 06-16 00:00: 00 Yes 300mg Take 1 capsule by mouth every evening. [facility] gabapentin 300 mg capsule 2021-0 06-16 00:00: 00 Yes 300mg Take 1 capsule by mouth every evening. [facility] gabapentin 300 mg capsule 2021-0 06-16 00:00: 00 Yes 300mg Take 1 capsule by mouth every evening. [facility] gabapentin 300 mg capsule 2021-0 06-16 00:00: 00 Yes 300mg Take 1 capsule by mouth every evening. [facility] gabapentin 300 mg capsule 2021-0 9-14 00:00: 00 Yes 300mg Take 1 capsule by mouth every evening. [facility] gabapentin 300 mg capsule 2-0 14 00:00: 00 Yes 300mg Take 1 capsule by mouth every evening. [facility] gabapentin 300 mg capsule 2021-0 14 00:00: 00 Yes 300mg Take 1 capsule by mouth every evening. [facility] gabapentin 300 mg capsule 2-0 14 00:00: 00 Yes 300mg Take 1 capsule by mouth every evening. [facility] gabapentin 300 mg capsule 2-0 14 00:00: 00 Yes 300mg Take 1 capsule by mouth every evening. [facility] gabapentin 300 mg capsule 2-0 14 00:00: 00 Yes 300mg Take 1 capsule by mouth every evening. [facility] gabapentin 300 mg capsule 2-0 14 00:00: 00 Yes 300mg Take 1 capsule by mouth every evening. [facility] gabapentin 300 mg capsule 2-0 14 00:00: 00 Yes 300mg Take 1 capsule by mouth every evening. [facility] gabapentin 300 mg capsule 2-0 14 00:00: 00 Yes 300mg Take 1 capsule by mouth every evening. [facility] gabapentin 300 mg capsule 2-0 14 00:00: 00 Yes 300mg Take 1 capsule by mouth every evening. [facility] gabapentin 300 mg capsule 2-0 14 00:00: 00 Yes 300mg Take 1 capsule by mouth every evening. [facility] gabapentin 300 mg capsule 2-0 14 00:00: 00 Yes 300mg Take 1 capsule by mouth every evening. [facility] gabapentin 300 mg capsule 2-0 14 00:00: 00 Yes 300mg Take 1 capsule by mouth every evening. [facility] gabapentin 300 mg capsule 2-0 -14 00:00: 00 Yes 300mg Take 1 capsule by mouth every evening. [facility] gabapentin 300 mg capsule 2-0 -14 00:00: 00 Yes 300mg Take 1 capsule by mouth every evening. [facility] gabapentin 300 mg capsule 2022-0 -14 00:00: 00 Yes 300mg Take 1 capsule by mouth every evening. [facility] gabapentin 300 mg capsule 2-0 -14 00:00: 00 Yes 300mg Take 1 capsule by mouth every evening. [facility] gabapentin 300 mg capsule 2022-0 -14 00:00: 00 Yes 300mg Take 1 capsule by mouth every evening. [facility] gabapentin 300 mg capsule 2-0 -14 00:00: 00 Yes 300mg Take 1 capsule by mouth every evening. [facility] gabapentin 300 mg capsule 2-0 -14 00:00: 00 Yes 300mg Take 1 capsule by mouth every evening. [facility] gabapentin 300 mg capsule 2-0 -14 00:00: 00 Yes 300mg Take 1 capsule by mouth every evening. [facility] gabapentin 300 mg capsule 2-0 -14 00:00: 00 Yes 300mg Take 1 capsule by mouth every evening. [facility] gabapentin 300 mg capsule 2-0 -14 00:00: 00 Yes 300mg Take 1 capsule by mouth every evening. [facility] gabapentin 300 mg capsule 2-0 -14 00:00: 00 Yes 300mg Take 1 capsule by mouth every evening. [facility] gabapentin 300 mg capsule 2-0 -14 00:00: 00 Yes 300mg Take 1 capsule by mouth every evening. [facility] gabapentin 300 mg capsule 2-0 -14 00:00: 00 Yes 300mg Take 1 capsule by mouth every evening. [facility] gabapentin 300 mg capsule 2-0 -14 00:00: 00 Yes 300mg Take 1 capsule by mouth every evening. [facility] gabapentin 300 mg capsule 2-0 -14 00:00: 00 Yes 300mg Take 1 capsule by mouth every evening. [facility] gabapentin 300 mg capsule 2-0 -14 00:00: 00 Yes 300mg Take 1 capsule by mouth every evening. [facility] gabapentin 300 mg capsule 2-0 -14 00:00: 00 Yes 300mg Take 1 capsule by mouth every evening. [facility] gabapentin 300 mg capsule 2022-0 -14 00:00: 00 Yes 300mg Take 1 capsule by mouth every evening. [facility] gabapentin 300 mg capsule 2022-0 -14 00:00: 00 Yes 300mg Take 1 capsule by mouth every evening. [facility] gabapentin 300 mg capsule 2022-0 -14 00:00: 00 Yes 300mg Take 1 capsule by mouth every evening. [facility] gabapentin 300 mg capsule 2022-0 -14 00:00: 00 Yes 300mg Take 1 capsule by mouth every evening. [facility] gabapentin 300 mg capsule 2022-0 -14 00:00: 00 Yes 300mg Take 1 capsule by mouth every evening. [facility] gabapentin 300 mg capsule 2-0 -14 00:00: 00 Yes 300mg Take 1 capsule by mouth every evening. [facility] gabapentin 300 mg capsule 2022-0 -14 00:00: 00 Yes 300mg Take 1 capsule by mouth every evening. [facility] gabapentin 300 mg capsule 2022-0 -14 00:00: 00 Yes 300mg Take 1 capsule by mouth every evening. [facility] gabapentin 300 mg capsule 2-0 -14 00:00: 00 Yes 300mg Take 1 capsule by mouth every evening. [facility] gabapentin 300 mg capsule 2-0 -14 00:00: 00 Yes 300mg Take 1 capsule by mouth every evening. [facility] gabapentin 300 mg capsule 2022-0 -14 00:00: 00 Yes 300mg Take 1 capsule by mouth every evening. [facility] gabapentin 300 mg capsule 2022-0 -14 00:00: 00 Yes 300mg Take 1 capsule by mouth every evening. [facility] gabapentin 300 mg capsule 2022-0 -14 00:00: 00 Yes 300mg Take 1 capsule by mouth every evening. [facility] gabapentin 300 mg capsule 2022-0 -14 00:00: 00 Yes 300mg Take 1 capsule by mouth every evening. [facility] gabapentin 300 mg capsule 2022-0 -14 00:00: 00 Yes 300mg Take 1 capsule by mouth every evening. [facility] gabapentin 300 mg capsule 2-0 -14 00:00: 00 Yes 300mg Take 1 capsule by mouth every evening. [facility] gabapentin 300 mg capsule 2-0 -14 00:00: 00 Yes 300mg Take 1 capsule by mouth every evening. [facility] gabapentin 300 mg capsule 2-0 -14 00:00: 00 Yes 300mg Take 1 capsule by mouth every evening. [facility] gabapentin 300 mg capsule 2-0 -14 00:00: 00 Yes 300mg Take 1 capsule by mouth every evening. [facility] gabapentin 300 mg capsule 2-0 -14 00:00: 00 Yes 300mg Take 1 capsule by mouth every evening. [facility] gabapentin 300 mg capsule 2-0 -14 00:00: 00 Yes 300mg Take 1 capsule by mouth every evening. [facility] gabapentin 300 mg capsule 2-0 -14 00:00: 00 Yes 300mg Take 1 capsule by mouth every evening. [facility] gabapentin 300 mg capsule 2-0 -14 00:00: 00 Yes 300mg Take 1 capsule by mouth every evening. [facility] gabapentin 300 mg capsule 2-0 -14 00:00: 00 Yes 300mg Take 1 capsule by mouth every evening. [facility] gabapentin 300 mg capsule 2-0 -14 00:00: 00 Yes 300mg Take 1 capsule by mouth every evening. [facility] gabapentin 300 mg capsule 2-0 -14 00:00: 00 Yes 300mg Take 1 capsule by mouth every evening. [facility] gabapentin 300 mg capsule 2-0 -14 00:00: 00 Yes 300mg Take 1 capsule by mouth every evening. [facility] gabapentin 300 mg capsule 2-0 -14 00:00: 00 Yes 300mg Take 1 capsule by mouth every evening. [facility] gabapentin 300 mg capsule 2-0 -14 00:00: 00 Yes 300mg Take 1 capsule by mouth every evening. [facility] gabapentin 300 mg capsule 2022-0 -14 00:00: 00 Yes 300mg Take 1 capsule by mouth every evening. [facility] gabapentin 300 mg capsule 06-16 00:00: 00 Yes 300mg Take 1 capsule by mouth every evening. [facility] gabapentin 300 mg capsule 06-16 00:00: 00 Yes 300mg Take 1 capsule by mouth every evening. [facility] gabapentin 300 mg capsule 06-16 00:00: 00 Yes 300mg Take 1 capsule by mouth every evening. [facility] gabapentin 300 mg capsule 06-16 00:00: 00 Yes 300mg Take 1 capsule by mouth every evening. [facility] gabapentin 300 mg capsule 06-16 00:00: 00 Yes 300mg Take 1 capsule by mouth every evening. [facility] gabapentin 300 mg capsule 06-16 00:00: 00 Yes 300mg Take 1 capsule by mouth every evening. [facility] gabapentin 300 mg capsule 06-16 00:00: 00 Yes 300mg Take 1 capsule by mouth every evening. [facility] gabapentin 300 mg capsule 06-16 00:00: 00 Yes 300mg Take 1 capsule by mouth every evening. [facility] gabapentin 300 mg capsule 06-16 00:00: 00 Yes 300mg Take 1 capsule by mouth every evening. [facility] gabapentin 300 mg capsule 06-16 00:00: 00 Yes 300mg Take 1 capsule by mouth every evening. [facility] gabapentin 300 mg capsule 06-16 00:00: 00 Yes 300mg Take 1 capsule by mouth every evening. [facility] insulin detemir U-100 (LEVEMIR U-100 INSULIN) 100 unit/mL injection 06-04 00:00: 00 Yes [id number] 28U inject 28 Units under the skin at bedtime. [facility] metformin ER 750 mg 24 hr tablet 06-04 00:00: 00 Yes [id number] 750mg Take 1 tablet by mouth in the morning and 1 tablet in the evening. Take with meals. [facility] insulin detemir U-100 (LEVEMIR U-100 INSULIN) 100 unit/mL injection 06-04 00:00: 00 Yes [id number] 28U inject 28 Units under the skin at bedtime. [facility] metformin ER 750 mg 24 hr tablet 06-04 00:00: 00 Yes [id number] 750mg Take 1 tablet by mouth in the morning and 1 tablet in the evening. Take with meals. [facility] insulin detemir U-100 (LEVEMIR U-100 INSULIN) 100 unit/mL injection 06-04 00:00: 00 Yes [id number] 28U inject 28 Units under the skin at bedtime. [facility] metformin ER 750 mg 24 hr tablet 06-04 00:00: 00 Yes [id number] 750mg Take 1 tablet by mouth in the morning and 1 tablet in the evening. Take with meals. [facility] insulin detemir U-100 (LEVEMIR U-100 INSULIN) 100 unit/mL injection 06-04 00:00: 00 Yes [id number] 28U inject 28 Units under the skin at bedtime. [facility] metformin ER 750 mg 24 hr tablet 06-04 00:00: 00 Yes [id number] 750mg Take 1 tablet by mouth in the morning and 1 tablet in the evening. Take with meals. [facility] insulin detemir U-100 (LEVEMIR U-100 INSULIN) 100 unit/mL injection 06-04 00:00: 00 Yes [id number] 28U inject 28 Units under the skin at bedtime. [facility] metformin ER 750 mg 24 hr tablet 06-04 00:00: 00 Yes [id number] 750mg Take 1 tablet by mouth in the morning and 1 tablet in the evening. Take with meals. [facility] insulin detemir U-100 (LEVEMIR U-100 INSULIN) 100 unit/mL injection 06-04 00:00: 00 Yes [id number] 28U inject 28 Units under the skin at bedtime. [facility] metformin ER 750 mg 24 hr tablet 06-04 00:00: 00 Yes [id number] 750mg Take 1 tablet by mouth in the morning and 1 tablet in the evening. Take with meals. [facility] insulin detemir U-100 (LEVEMIR U-100 INSULIN) 100 unit/mL injection 06-04 00:00: 00 Yes [id number] 28U inject 28 Units under the skin at bedtime. [facility] metformin ER 750 mg 24 hr tablet 06-04 00:00: 00 Yes [id number] 750mg Take 1 tablet by mouth in the morning and 1 tablet in the evening. Take with meals. [facility] insulin detemir U-100 (LEVEMIR U-100 INSULIN) 100 unit/mL injection 06-04 00:00: 00 Yes [id number] 28U inject 28 Units under the skin at bedtime. [facility] metformin ER 750 mg 24 hr tablet 06-04 00:00: 00 Yes [id number] 750mg Take 1 tablet by mouth in the morning and 1 tablet in the evening. Take with meals. [facility] insulin detemir U-100 (LEVEMIR U-100 INSULIN) 100 unit/mL injection 06-04 00:00: 00 Yes [id number] 28U inject 28 Units under the skin at bedtime. [facility] metformin ER 750 mg 24 hr tablet 06-04 00:00: 00 Yes [id number] 750mg Take 1 tablet by mouth in the morning and 1 tablet in the evening. Take with meals. [facility] insulin detemir U-100 (LEVEMIR U-100 INSULIN) 100 unit/mL injection 06-04 00:00: 00 Yes [id number] 28U inject 28 Units under the skin at bedtime. [facility] metformin ER 750 mg 24 hr tablet 06-04 00:00: 00 Yes [id number] 750mg Take 1 tablet by mouth in the morning and 1 tablet in the evening. Take with meals. [facility] insulin detemir U-100 (LEVEMIR U-100 INSULIN) 100 unit/mL injection 06-04 00:00: 00 Yes [id number] 28U inject 28 Units under the skin at bedtime. [facility] metformin ER 750 mg 24 hr tablet 06-04 00:00: 00 Yes [id number] 750mg Take 1 tablet by mouth in the morning and 1 tablet in the evening. Take with meals. [facility] insulin detemir U-100 (LEVEMIR U-100 INSULIN) 100 unit/mL injection 06-04 00:00: 00 Yes [id number] 28U inject 28 Units under the skin at bedtime. [facility] metformin ER 750 mg 24 hr tablet 06-04 00:00: 00 Yes [id number] 750mg Take 1 tablet by mouth in the morning and 1 tablet in the evening. Take with meals. [facility] insulin detemir U-100 (LEVEMIR U-100 INSULIN) 100 unit/mL injection 06-04 00:00: 00 Yes [id number] 28U inject 28 Units under the skin at bedtime. [facility] metformin ER 750 mg 24 hr tablet 06-04 00:00: 00 Yes [id number] 750mg Take 1 tablet by mouth in the morning and 1 tablet in the evening. Take with meals. [facility] insulin detemir U-100 (LEVEMIR U-100 INSULIN) 100 unit/mL injection 06-04 00:00: 00 Yes [id number] 28U inject 28 Units under the skin at bedtime. [facility] metformin ER 750 mg 24 hr tablet 06-04 00:00: 00 Yes [id number] 750mg Take 1 tablet by mouth in the morning and 1 tablet in the evening. Take with meals. [facility] metformin ER 750 mg 24 hr tablet 06-04 00:00: 00 Yes [id number] 750mg Take 1 tablet by mouth in the morning and 1 tablet in the evening. Take with meals. [facility] metformin ER 750 mg 24 hr tablet 06-04 00:00: 00 Yes [id number] 750mg Take 1 tablet by mouth in the morning and 1 tablet in the evening. Take with meals. [facility] metformin ER 750 mg 24 hr tablet 06-04 00:00: 00 Yes [id number] 750mg Take 1 tablet by mouth in the morning and 1 tablet in the evening. Take with meals. [facility] metformin ER 750 mg 24 hr tablet 06-04 00:00: 00 Yes [id number] 750mg Take 1 tablet by mouth in the morning and 1 tablet in the evening. Take with meals. [facility] metformin ER 750 mg 24 hr tablet 06-04 00:00: 00 Yes [id number] 750mg Take 1 tablet by mouth in the morning and 1 tablet in the evening. Take with meals. [facility] metformin ER 750 mg 24 hr tablet 06-04 00:00: 00 Yes [id number] 750mg Take 1 tablet by mouth in the morning and 1 tablet in the evening. Take with meals. [facility] metformin ER 750 mg 24 hr tablet 06-04 00:00: 00 Yes [id number] 750mg Take 1 tablet by mouth in the morning and 1 tablet in the evening. Take with meals. [facility] metformin ER 750 mg 24 hr tablet 06-04 00:00: 00 Yes [id number] 750mg Take 1 tablet by mouth in the morning and 1 tablet in the evening. Take with meals. [facility] metformin ER 750 mg 24 hr tablet 06-04 00:00: 00 Yes [id number] 750mg Take 1 tablet by mouth in the morning and 1 tablet in the evening. Take with meals. [facility] metformin ER 750 mg 24 hr tablet 06-04 00:00: 00 Yes [id number] 750mg Take 1 tablet by mouth in the morning and 1 tablet in the evening. Take with meals. [facility] metformin ER 750 mg 24 hr tablet 06-04 00:00: 00 Yes [id number] 750mg Take 1 tablet by mouth in the morning and 1 tablet in the evening. Take with meals. [facility] metformin ER 750 mg 24 hr tablet 06-04 00:00: 00 Yes [id number] 750mg Take 1 tablet by mouth in the morning and 1 tablet in the evening. Take with meals. [facility] metformin ER 750 mg 24 hr tablet 06-04 00:00: 00 Yes [id number] 750mg Take 1 tablet by mouth in the morning and 1 tablet in the evening. Take with meals. [facility] metformin ER 750 mg 24 hr tablet 06-04 00:00: 00 Yes [id number] 750mg Take 1 tablet by mouth in the morning and 1 tablet in the evening. Take with meals. [facility] metformin ER 750 mg 24 hr tablet 06-04 00:00: 00 Yes [id number] 750mg Take 1 tablet by mouth in the morning and 1 tablet in the evening. Take with meals. [facility] metformin ER 750 mg 24 hr tablet 06-04 00:00: 00 Yes [id number] 750mg Take 1 tablet by mouth in the morning and 1 tablet in the evening. Take with meals. [facility] metformin ER 750 mg 24 hr tablet 06-04 00:00: 00 Yes [id number] 750mg Take 1 tablet by mouth in the morning and 1 tablet in the evening. Take with meals. [facility] metformin ER 750 mg 24 hr tablet 06-04 00:00: 00 Yes [id number] 750mg Take 1 tablet by mouth in the morning and 1 tablet in the evening. Take with meals. [facility] metformin ER 750 mg 24 hr tablet 06-04 00:00: 00 Yes [id number] 750mg Take 1 tablet by mouth in the morning and 1 tablet in the evening. Take with meals. [facility] metformin ER 750 mg 24 hr tablet 06-04 00:00: 00 Yes [id number] 750mg Take 1 tablet by mouth in the morning and 1 tablet in the evening. Take with meals. [facility] metformin ER 750 mg 24 hr tablet 06-04 00:00: 00 Yes [id number] 750mg Take 1 tablet by mouth in the morning and 1 tablet in the evening. Take with meals. [facility] metformin ER 750 mg 24 hr tablet 06-04 00:00: 00 Yes [id number] 750mg Take 1 tablet by mouth in the morning and 1 tablet in the evening. Take with meals. [facility] metformin ER 750 mg 24 hr tablet 06-04 00:00: 00 Yes [id number] 750mg Take 1 tablet by mouth in the morning and 1 tablet in the evening. Take with meals. [facility] metformin ER 750 mg 24 hr tablet 06-04 00:00: 00 Yes [id number] 750mg Take 1 tablet by mouth in the morning and 1 tablet in the evening. Take with meals. [facility] metformin ER 750 mg 24 hr tablet 06-04 00:00: 00 Yes [id number] 750mg Take 1 tablet by mouth in the morning and 1 tablet in the evening. Take with meals. [facility] metformin ER 750 mg 24 hr tablet 06-04 00:00: 00 Yes [id number] 750mg Take 1 tablet by mouth in the morning and 1 tablet in the evening. Take with meals. [facility] metformin ER 750 mg 24 hr tablet 06-04 00:00: 00 Yes [id number] 750mg Take 1 tablet by mouth in the morning and 1 tablet in the evening. Take with meals. [facility] metformin ER 750 mg 24 hr tablet 06-04 00:00: 00 Yes [id number] 750mg Take 1 tablet by mouth in the morning and 1 tablet in the evening. Take with meals. [facility] metformin ER 750 mg 24 hr tablet 06-04 00:00: 00 Yes [id number] 750mg Take 1 tablet by mouth in the morning and 1 tablet in the evening. Take with meals. [facility] metformin ER 750 mg 24 hr tablet 06-04 00:00: 00 Yes [id number] 750mg Take 1 tablet by mouth in the morning and 1 tablet in the evening. Take with meals. [facility] metformin ER 750 mg 24 hr tablet 06-04 00:00: 00 Yes [id number] 750mg Take 1 tablet by mouth in the morning and 1 tablet in the evening. Take with meals. [facility] metformin ER 750 mg 24 hr tablet 06-04 00:00: 00 Yes [id number] 750mg Take 1 tablet by mouth in the morning and 1 tablet in the evening. Take with meals. [facility] metformin ER 750 mg 24 hr tablet 06-04 00:00: 00 Yes [id number] 750mg Take 1 tablet by mouth in the morning and 1 tablet in the evening. Take with meals. [facility] metformin ER 750 mg 24 hr tablet 06-04 00:00: 00 Yes [id number] 750mg Take 1 tablet by mouth in the morning and 1 tablet in the evening. Take with meals. [facility] metformin ER 750 mg 24 hr tablet 06-04 00:00: 00 Yes [id number] 750mg Take 1 tablet by mouth in the morning and 1 tablet in the evening. Take with meals. [facility] metformin ER 750 mg 24 hr tablet 06-04 00:00: 00 Yes [id number] 750mg Take 1 tablet by mouth in the morning and 1 tablet in the evening. Take with meals. [facility] metformin ER 750 mg 24 hr tablet 06-04 00:00: 00 Yes [id number] 750mg Take 1 tablet by mouth in the morning and 1 tablet in the evening. Take with meals. [facility] metformin ER 750 mg 24 hr tablet 06-04 00:00: 00 Yes [id number] 750mg Take 1 tablet by mouth in the morning and 1 tablet in the evening. Take with meals. [facility] metformin ER 750 mg 24 hr tablet 06-04 00:00: 00 Yes [id number] 750mg Take 1 tablet by mouth in the morning and 1 tablet in the evening. Take with meals. [facility] metformin ER 750 mg 24 hr tablet 06-04 00:00: 00 Yes [id number] 750mg Take 1 tablet by mouth in the morning and 1 tablet in the evening. Take with meals. [facility] metformin ER 750 mg 24 hr tablet 06-04 00:00: 00 Yes [id number] 750mg Take 1 tablet by mouth in the morning and 1 tablet in the evening. Take with meals. [facility] metformin ER 750 mg 24 hr tablet 06-04 00:00: 00 Yes [id number] 750mg Take 1 tablet by mouth in the morning and 1 tablet in the evening. Take with meals. [facility] metformin ER 750 mg 24 hr tablet 06-04 00:00: 00 Yes [id number] 750mg Take 1 tablet by mouth in the morning and 1 tablet in the evening. Take with meals. [facility] metformin ER 750 mg 24 hr tablet 06-04 00:00: 00 05-17 00:00 :00 No [id number] 750mg Take 1 tablet by mouth in the morning and 1 tablet in the evening. Take with meals. [facility] metformin ER 750 mg 24 hr tablet 06-04 00:00: 00 05-17 00:00 :00 No [id number] 750mg Take 1 tablet by mouth in the morning and 1 tablet in the evening. Take with meals. [facility] insulin detemir U-100 (LEVEMIR U-100 INSULIN) 100 unit/mL injection 06-04 00:00: 00 10-25 00:00 :00 No [id number] 28U inject 28 Units under the skin at bedtime. [facility] insulin detemir U-100 (LEVEMIR U-100 INSULIN) 100 unit/mL injection 06-04 00:00: 00 10-25 00:00 :00 No [id number] [id number] inject 28 Units under the skin at bedtime. [facility] HYDROcodone -ibuprofen 7.5-200 mg per tablet 05-17 00:00: 00 Yes [id number] TAKE 1 TABLET BY MOUTH EVERY SIX HOURS NEEDED FOR PAIN Indication s: chronic pain [facility] HYDROcodone -ibuprofen 7.5-200 mg per tablet 05-17 00:00: 00 Yes 2745 TAKE 1 TABLET BY MOUTH EVERY SIX HOURS NEEDED FOR PAIN Indication s: chronic pain [facility] HYDROcodone -ibuprofen 7.5-200 mg per tablet 2021-0 8-15 00:00: 00 Yes 2745 TAKE 1 TABLET BY MOUTH EVERY SIX HOURS NEEDED FOR PAIN Indication s: chronic pain [facility] HYDROcodone -ibuprofen 7.5-200 mg per tablet 2021-0 8-15 00:00: 00 Yes 2745 TAKE 1 TABLET BY MOUTH EVERY SIX HOURS NEEDED FOR PAIN Indication s: chronic pain [facility] HYDROcodone -ibuprofen 7.5-200 mg per tablet 2021-0 8-15 00:00: 00 Yes 2745 TAKE 1 TABLET BY MOUTH EVERY SIX HOURS NEEDED FOR PAIN Indication s: chronic pain [facility] HYDROcodone -ibuprofen 7.5-200 mg per tablet 0 8-15 00:00: 00 07-07 00:00 :00 No 2745 TAKE 1 TABLET BY MOUTH EVERY SIX HOURS NEEDED FOR PAIN Indication s: chronic pain [facility] HYDROCHLORO THIAZIDE 12.5 mg capsule 2021-0 03-02 00:00: 00 Yes [id number] 12.5mg TAKE 1 CAPSULE BY MOUTH DAILY [facility] HYDROCHLORO THIAZIDE 12.5 mg capsule 0 03-02 00:00: 00 Yes [id number] 12.5mg TAKE 1 CAPSULE BY MOUTH DAILY [facility] HYDROCHLORO THIAZIDE 12.5 mg capsule 2021-0 03-02 00:00: 00 Yes [id number] 12.5mg TAKE 1 CAPSULE BY MOUTH DAILY [facility] HYDROCHLORO THIAZIDE 12.5 mg capsule 2021-0 03-02 00:00: 00 Yes [id number] 12.5mg TAKE 1 CAPSULE BY MOUTH DAILY [facility] HYDROCHLORO THIAZIDE 12.5 mg capsule 2021-0 03-02 00:00: 00 Yes [id number] 12.5mg TAKE 1 CAPSULE BY MOUTH DAILY [facility] HYDROCHLORO THIAZIDE 12.5 mg capsule 2021-0 - 00:00: 00 Yes [id number] 12.5mg TAKE 1 CAPSULE BY MOUTH DAILY [facility] HYDROCHLORO THIAZIDE 12.5 mg capsule 2021-0 03-02 00:00: 00 Yes [id number] 12.5mg TAKE 1 CAPSULE BY MOUTH DAILY [facility] 12.5 mg capsule 2021-0 03-02 00:00: 00 Yes [id number] 12.5mg TAKE 1 CAPSULE BY MOUTH DAILY [facility] HYDROCHLORO THIAZIDE 12.5 mg capsule 2021-0 03-02 00:00: 00 Yes [id number] 12.5mg TAKE 1 CAPSULE BY MOUTH DAILY [facility] HYDROCHLORO THIAZIDE 12.5 mg capsule 2021-0 03-02 00:00: 00 Yes [id number] 12.5mg TAKE 1 CAPSULE BY MOUTH DAILY [facility] HYDROCHLORO THIAZIDE 12.5 mg capsule 2021-0 03-02 00:00: 00 Yes [id number] 12.5mg TAKE 1 CAPSULE BY MOUTH DAILY [facility] HYDROCHLORO THIAZIDE 12.5 mg capsule 2021-0 03-02 00:00: 00 Yes [id number] 12.5mg TAKE 1 CAPSULE BY MOUTH DAILY [facility] HYDROCHLORO THIAZIDE 12.5 mg capsule 2021-0 03-02 00:00: 00 Yes [id number] 12.5mg TAKE 1 CAPSULE BY MOUTH DAILY [facility] HYDROCHLORO THIAZIDE 12.5 mg capsule 2021-0 03-02 00:00: 00 Yes [id number] 12.5mg TAKE 1 CAPSULE BY MOUTH DAILY [facility] HYDROCHLORO THIAZIDE 12.5 mg capsule 2021-0 03-02 00:00: 00 Yes [id number] 12.5mg TAKE 1 CAPSULE BY MOUTH DAILY [facility] HYDROCHLORO THIAZIDE 12.5 mg capsule 2021-0 03-02 00:00: 00 Yes [id number] 12.5mg TAKE 1 CAPSULE BY MOUTH DAILY [facility] HYDROCHLORO THIAZIDE 12.5 mg capsule 2021-0 03-02 00:00: 00 Yes [id number] 12.5mg TAKE 1 CAPSULE BY MOUTH DAILY [facility] HYDROCHLORO THIAZIDE 12.5 mg capsule 2021-0 03-02 00:00: 00 Yes [id number] 12.5mg TAKE 1 CAPSULE BY MOUTH DAILY [facility] HYDROCHLORO THIAZIDE 12.5 mg capsule 03-02 00:00: 00 11-25 00:00 :00 No [id number] 12.5mg TAKE 1 CAPSULE BY MOUTH DAILY [facility] HYDROCHLORO THIAZIDE 12.5 mg capsule 03-02 00:00: 00 11-25 00:00 :00 No [id number] 12.5mg TAKE 1 CAPSULE BY MOUTH DAILY [facility] lisinopriL 20 mg tablet 0 02-25 00:00: 00 Yes [id number] 20mg Take 1 tablet by mouth daily. [facility] cefUROXime 500 mg tablet 0 02-25 00:00: 00 Yes [id number] 500mg Take 1 tablet by mouth 2 (two) times daily. [facility] lisinopriL 20 mg tablet 02-25 00:00: 00 Yes [id number] 20mg Take 1 tablet by mouth daily. [facility] cefUROXime 500 mg tablet 0 02-25 00:00: 00 Yes [id number] 500mg Take 1 tablet by mouth 2 (two) times daily. [facility] lisinopriL 20 mg tablet 0 02-25 00:00: 00 Yes [id number] 20mg Take 1 tablet by mouth daily. [facility] cefUROXime 500 mg tablet 0 02-25 00:00: 00 Yes [id number] 500mg Take 1 tablet by mouth 2 (two) times daily. [facility] lisinopriL 20 mg tablet 0 02-25 00:00: 00 Yes [id number] 20mg Take 1 tablet by mouth daily. [facility] cefUROXime 500 mg tablet 2021-0 02-25 00:00: 00 Yes [id number] 500mg Take 1 tablet by mouth 2 (two) times daily. [facility] lisinopriL 20 mg tablet 2021-0 02-25 00:00: 00 Yes [id number] 20mg Take 1 tablet by mouth daily. [facility] cefUROXime 500 mg tablet 2021-0 02-25 00:00: 00 Yes [id number] 500mg Take 1 tablet by mouth 2 (two) times daily. [facility] lisinopriL 20 mg tablet 0 02-25 00:00: 00 Yes [id number] 20mg Take 1 tablet by mouth daily. [facility] cefUROXime 500 mg tablet 0 02-25 00:00: 00 Yes [id number] 500mg Take 1 tablet by mouth 2 (two) times daily. [facility] lisinopriL 20 mg tablet 2021-0 02-25 00:00: 00 Yes [id number] 20mg Take 1 tablet by mouth daily. [facility] cefUROXime 500 mg tablet 0 02-25 00:00: 00 Yes [id number] 500mg Take 1 tablet by mouth 2 (two) times daily. [facility] lisinopriL 20 mg tablet 0 02-25 00:00: 00 Yes [id number] 20mg Take 1 tablet by mouth daily. [facility] cefUROXime 500 mg tablet 2021-0 02-25 00:00: 00 Yes [id number] 500mg Take 1 tablet by mouth 2 (two) times daily. [facility] lisinopriL 20 mg tablet 2021-0 02-25 00:00: 00 Yes [id number] 20mg Take 1 tablet by mouth daily. [facility] cefUROXime 500 mg tablet 2021-0 02-25 00:00: 00 Yes [id number] 500mg Take 1 tablet by mouth 2 (two) times daily. [facility] lisinopriL 20 mg tablet 2021-0 02-25 00:00: 00 Yes [id number] 20mg Take 1 tablet by mouth daily. [facility] cefUROXime 500 mg tablet 2021-0 02-25 00:00: 00 Yes [id number] 500mg Take 1 tablet by mouth 2 (two) times daily. [facility] lisinopriL 20 mg tablet 2021-0 02-25 00:00: 00 Yes [id number] 20mg Take 1 tablet by mouth daily. [facility] cefUROXime 500 mg tablet 2021-0 02-25 00:00: 00 Yes [id number] 500mg Take 1 tablet by mouth 2 (two) times daily. [facility] lisinopriL 20 mg tablet 0 02-25 00:00: 00 Yes [id number] 20mg Take 1 tablet by mouth daily. [facility] cefUROXime 500 mg tablet 2021-0 02-25 00:00: 00 Yes [id number] 500mg Take 1 tablet by mouth 2 (two) times daily. [facility] lisinopriL 20 mg tablet 2021-0 02-25 00:00: 00 Yes [id number] 20mg Take 1 tablet by mouth daily. [facility] cefUROXime 500 mg tablet 0 02-25 00:00: 00 Yes [id number] 500mg Take 1 tablet by mouth 2 (two) times daily. [facility] lisinopriL 20 mg tablet 2021-0 02-25 00:00: 00 Yes [id number] 20mg Take 1 tablet by mouth daily. [facility] cefUROXime 500 mg tablet 2021-0 02-25 00:00: 00 Yes [id number] 500mg Take 1 tablet by mouth 2 (two) times daily. [facility] lisinopriL 20 mg tablet 0 02-25 00:00: 00 Yes [id number] 20mg Take 1 tablet by mouth daily. [facility] cefUROXime 500 mg tablet 0 02-25 00:00: 00 Yes [id number] 500mg Take 1 tablet by mouth 2 (two) times daily. [facility] lisinopriL 20 mg tablet 2021-0 02-25 00:00: 00 Yes [id number] 20mg Take 1 tablet by mouth daily. [facility] cefUROXime 500 mg tablet 2021-0 02-25 00:00: 00 Yes [id number] 500mg Take 1 tablet by mouth 2 (two) times daily. [facility] lisinopriL 20 mg tablet 2021-0 02-25 00:00: 00 Yes [id number] 20mg Take 1 tablet by mouth daily. [facility] cefUROXime 500 mg tablet 2021-0 02-25 00:00: 00 Yes [id number] 500mg Take 1 tablet by mouth 2 (two) times daily. [facility] lisinopriL 20 mg tablet 2021-0 02-25 00:00: 00 Yes [id number] 20mg Take 1 tablet by mouth daily. [facility] cefUROXime 500 mg tablet 2021-0 02-25 00:00: 00 Yes [id number] 500mg Take 1 tablet by mouth 2 (two) times daily. [facility] lisinopriL 20 mg tablet 2021-0 02-25 00:00: 00 Yes [id number] 20mg Take 1 tablet by mouth daily. [facility] cefUROXime 500 mg tablet 2021-0 02-25 00:00: 00 Yes [id number] 500mg Take 1 tablet by mouth 2 (two) times daily. [facility] lisinopriL 20 mg tablet 2021-0 02-25 00:00: 00 Yes [id number] 20mg Take 1 tablet by mouth daily. [facility] cefUROXime 500 mg tablet 2021-0 02-25 00:00: 00 Yes [id number] 500mg Take 1 tablet by mouth 2 (two) times daily. [facility] lisinopriL 20 mg tablet 2021-0 02-25 00:00: 00 Yes [id number] 20mg Take 1 tablet by mouth daily. [facility] cefUROXime 500 mg tablet 0 02-25 00:00: 00 Yes [id number] 500mg Take 1 tablet by mouth 2 (two) times daily. [facility] lisinopriL 20 mg tablet 2021-0 02-25 00:00: 00 Yes [id number] 20mg Take 1 tablet by mouth daily. [facility] cefUROXime 500 mg tablet 2021-0 02-25 00:00: 00 Yes [id number] 500mg Take 1 tablet by mouth 2 (two) times daily. [facility] lisinopriL 20 mg tablet 2021-0 02-25 00:00: 00 Yes [id number] 20mg Take 1 tablet by mouth daily. [facility] cefUROXime 500 mg tablet 2021-0 02-25 00:00: 00 Yes [id number] 500mg Take 1 tablet by mouth 2 (two) times daily. [facility] lisinopriL 20 mg tablet 0 02-25 00:00: 00 Yes [id number] 20mg Take 1 tablet by mouth daily. [facility] cefUROXime 500 mg tablet 0 02-25 00:00: 00 Yes [id number] 500mg Take 1 tablet by mouth 2 (two) times daily. [facility] lisinopriL 20 mg tablet 0 02-25 00:00: 00 Yes [id number] 20mg Take 1 tablet by mouth daily. [facility] cefUROXime 500 mg tablet 0 02-25 00:00: 00 Yes [id number] 500mg Take 1 tablet by mouth 2 (two) times daily. [facility] lisinopriL 20 mg tablet 0 02-25 00:00: 00 Yes [id number] 20mg Take 1 tablet by mouth daily. [facility] cefUROXime 500 mg tablet 0 02-25 00:00: 00 Yes [id number] 500mg Take 1 tablet by mouth 2 (two) times daily. [facility] lisinopriL 20 mg tablet 0 02-25 00:00: 00 Yes [id number] 20mg Take 1 tablet by mouth daily. [facility] cefUROXime 500 mg tablet 0 02-25 00:00: 00 Yes [id number] 500mg Take 1 tablet by mouth 2 (two) times daily. [facility] lisinopriL 20 mg tablet 0 02-25 00:00: 00 Yes [id number] 20mg Take 1 tablet by mouth daily. [facility] cefUROXime 500 mg tablet 0 02-25 00:00: 00 Yes [id number] 500mg Take 1 tablet by mouth 2 (two) times daily. [facility] lisinopriL 20 mg tablet 2021-0 02-25 00:00: 00 Yes [id number] 20mg Take 1 tablet by mouth daily. [facility] cefUROXime 500 mg tablet 2021-0 02-25 00:00: 00 Yes [id number] 500mg Take 1 tablet by mouth 2 (two) times daily. [facility] lisinopriL 20 mg tablet 2021-0 02-25 00:00: 00 Yes [id number] 20mg Take 1 tablet by mouth daily. [facility] cefUROXime 500 mg tablet 0 02-25 00:00: 00 Yes [id number] 500mg Take 1 tablet by mouth 2 (two) times daily. [facility] lisinopriL 20 mg tablet 2021-0 02-25 00:00: 00 Yes [id number] 20mg Take 1 tablet by mouth daily. [facility] cefUROXime 500 mg tablet 2021-0 02-25 00:00: 00 Yes [id number] 500mg Take 1 tablet by mouth 2 (two) times daily. [facility] lisinopriL 20 mg tablet 2021-0 02-25 00:00: 00 Yes [id number] 20mg Take 1 tablet by mouth daily. [facility] cefUROXime 500 mg tablet 2021-0 02-25 00:00: 00 Yes [id number] 500mg Take 1 tablet by mouth 2 (two) times daily. [facility] lisinopriL 20 mg tablet 2021-0 02-25 00:00: 00 Yes [id number] 20mg Take 1 tablet by mouth daily. [facility] cefUROXime 500 mg tablet 0 02-25 00:00: 00 Yes [id number] 500mg Take 1 tablet by mouth 2 (two) times daily. [facility] lisinopriL 20 mg tablet 0 02-25 00:00: 00 Yes [id number] 20mg Take 1 tablet by mouth daily. [facility] cefUROXime 500 mg tablet 0 02-25 00:00: 00 Yes [id number] 500mg Take 1 tablet by mouth 2 (two) times daily. [facility] lisinopriL 20 mg tablet 2021-0 02-25 00:00: 00 Yes [id number] 20mg Take 1 tablet by mouth daily. [facility] cefUROXime 500 mg tablet 2021-0 02-25 00:00: 00 Yes [id number] 500mg Take 1 tablet by mouth 2 (two) times daily. [facility] lisinopriL 20 mg tablet 2021-0 02-25 00:00: 00 Yes [id number] 20mg Take 1 tablet by mouth daily. [facility] cefUROXime 500 mg tablet 0 02-25 00:00: 00 Yes [id number] 500mg Take 1 tablet by mouth 2 (two) times daily. [facility] lisinopriL 20 mg tablet 2021-0 02-25 00:00: 00 Yes [id number] 20mg Take 1 tablet by mouth daily. [facility] cefUROXime 500 mg tablet 2021-0 02-25 00:00: 00 Yes [id number] 500mg Take 1 tablet by mouth 2 (two) times daily. [facility] lisinopriL 20 mg tablet 0 02-25 00:00: 00 Yes [id number] 20mg Take 1 tablet by mouth daily. [facility] cefUROXime 500 mg tablet 0 02-25 00:00: 00 Yes [id number] 500mg Take 1 tablet by mouth 2 (two) times daily. [facility] lisinopriL 20 mg tablet 2021-0 02-25 00:00: 00 Yes [id number] 20mg Take 1 tablet by mouth daily. [facility] cefUROXime 500 mg tablet 0 02-25 00:00: 00 Yes [id number] 500mg Take 1 tablet by mouth 2 (two) times daily. [facility] lisinopriL 20 mg tablet 2021-0 02-25 00:00: 00 Yes [id number] 20mg Take 1 tablet by mouth daily. [facility] cefUROXime 500 mg tablet 0 02-25 00:00: 00 Yes [id number] 500mg Take 1 tablet by mouth 2 (two) times daily. [facility] lisinopriL 20 mg tablet 0 02-25 00:00: 00 Yes [id number] 20mg Take 1 tablet by mouth daily. [facility] cefUROXime 500 mg tablet 2021-0 02-25 00:00: 00 Yes [id number] 500mg Take 1 tablet by mouth 2 (two) times daily. [facility] lisinopriL 20 mg tablet 2021-0 02-25 00:00: 00 Yes [id number] 20mg Take 1 tablet by mouth daily. [facility] cefUROXime 500 mg tablet 2021-0 02-25 00:00: 00 Yes [id number] 500mg Take 1 tablet by mouth 2 (two) times daily. [facility] [facility] lisinopriL 20 mg tablet 2021-0 02-25 00:00: 00 Yes [id number] 20mg Take 1 tablet by mouth daily. [facility] cefUROXime 500 mg tablet 2021-0 02-25 00:00: 00 Yes [id number] 500mg Take 1 tablet by mouth 2 (two) times daily. [facility] lisinopriL 20 mg tablet 2021-0 02-25 00:00: 00 Yes [id number] 20mg Take 1 tablet by mouth daily. [facility] cefUROXime 500 mg tablet 2021-0 02-25 00:00: 00 Yes [id number] 500mg Take 1 tablet by mouth 2 (two) times daily. [facility] lisinopriL 20 mg tablet 2021-0 02-25 00:00: 00 Yes [id number] 20mg Take 1 tablet by mouth daily. [facility] cefUROXime 500 mg tablet 0 02-25 00:00: 00 Yes [id number] 500mg Take 1 tablet by mouth 2 (two) times daily. [facility] lisinopriL 20 mg tablet 2021-0 02-25 00:00: 00 Yes [id number] 20mg Take 1 tablet by mouth daily. [facility] cefUROXime 500 mg tablet 0 02-25 00:00: 00 Yes [id number] 500mg Take 1 tablet by mouth 2 (two) times daily. [facility] lisinopriL 20 mg tablet 2021-0 02-25 00:00: 00 Yes [id number] 20mg Take 1 tablet by mouth daily. [facility] cefUROXime 500 mg tablet 2021-0 02-25 00:00: 00 Yes [id number] 500mg Take 1 tablet by mouth 2 (two) times daily. [facility] lisinopriL 20 mg tablet 2021-0 02-25 00:00: 00 Yes [id number] 20mg Take 1 tablet by mouth daily. [facility] cefUROXime 500 mg tablet 02-25 00:00: 00 Yes [id number] 500mg Take 1 tablet by mouth 2 (two) times daily. [facility] lisinopriL 20 mg tablet 02-25 00:00: 00 Yes [id number] 20mg Take 1 tablet by mouth daily. [facility] cefUROXime 500 mg tablet 02-25 00:00: 00 Yes [id number] 500mg Take 1 tablet by mouth 2 (two) times daily. [facility] cefUROXime 500 mg tablet 02-25 00:00: 00 Yes [id number] 500mg Take 1 tablet by mouth 2 (two) times daily. [facility] cefUROXime 500 mg tablet 02-25 00:00: 00 Yes [id number] 500mg Take 1 tablet by mouth 2 (two) times daily. [facility] cefUROXime 500 mg tablet 02-25 00:00: 00 04-20 00:00 :00 No [id number] 500mg Take 1 tablet by mouth 2 (two) times daily. [facility] cefUROXime 500 mg tablet 02-25 00:00: 00 04-20 00:00 :00 No [id number] 500mg Take 1 tablet by mouth 2 (two) times daily. [facility] cefUROXime 500 mg tablet 02-25 00:00: 00 04-20 00:00 :00 No [id number] 500mg Take 1 tablet by mouth 2 (two) times daily. [facility] lisinopriL 20 mg tablet 02-25 00:00: 00 04-12 00:00 :00 No [id number] 20mg Take 1 tablet by mouth daily. [facility] insulin detemir U-100 (LEVEMIR U-100 INSULIN) 100 unit/mL injection 01-26 00:00: 00 06-04 00:00 :00 No [id number] 24U inject 24 Units under the skin at bedtime. [facility] metformin ER 750 mg 24 hr tablet 01-26 00:00: 00 06-04 00:00 :00 No [id number] 750mg Take 1 tablet by mouth 2 (two) times daily with meals. [facility] insulin detemir U-100 (LEVEMIR U-100 INSULIN) 100 unit/mL injection 01-26 00:00: 00 06-04 00:00 :00 No [id number] 24U inject 24 Units under the skin at bedtime. [facility] metformin ER 750 mg 24 hr tablet 01-26 00:00: 00 06-04 00:00 :00 No [id number] 750mg Take 1 tablet by mouth 2 (two) times daily with meals[facility] -ACETAMINOP HEN 5-325 mg tablet 2020-10 00:00: 00 Yes [id number] TAKE 1 TABLET BY MOUTH EVERY FOUR HOURS NEEDED FOR PAIN [facility] HYDROCODONE -ACETAMINOP HEN 5-325 mg tablet 2020-10 00:00: 00 Yes [id number] TAKE 1 TABLET BY MOUTH EVERY FOUR HOURS NEED[facility]DR[facility] -ACETAMINOP HEN 5-325 mg tablet 2020-10 00:00: 00 Yes [id number] TAKE 1 TABLET BY MOUTH EVERY FOUR HOURS NEEDED FOR PAIN [facility] HYDROCODONE -ACETAMINOP HEN 5-325 mg tablet 2020-10 00:00: 00 Yes [id number] TAKE 1 TABLET BY MOUTH EVERY FOUR HOURS NEEDED FOR PAIN [facility] HYDROCODONE -ACETAMINOP HEN 5-325 mg tablet 2020-10 00:00: 00 Yes [id number] TAKE 1 TABLET BY MOUTH EVERY FOUR HOURS NEEDED FOR PAIN [facility] HYDROCODONE -ACETAMINOP HEN 5-325 mg tablet 2020-10 00:00: 00 Yes [id number] TAKE 1 TABLET BY MOUTH EVERY FOUR HOURS NEEDED FOR PAIN [facility] HYDROCODONE -ACETAMINOP HEN 5-325 mg tablet 2020-10 00:00: 00 Yes [id number] TAKE 1 TABLET BY MOUTH EVERY FOUR HOURS NEEDED FOR PAIN [facility] HYDROCODONE -ACETAMINOP HEN 5-325 mg tablet 2020-10 00:00: 00 Yes [id number] TAKE 1 TABLET BY MOUTH EVERY FOUR HOURS NEEDED FOR PAIN [facility] HYDROCODONE -ACETAMINOP HEN 5-325 mg tablet 2020-10 00:00: 00 Yes [id number] TAKE 1 TABLET BY MOUTH EVERY FOUR HOURS NEEDED FOR PAIN [facility] HYDROCODONE -ACETAMINOP HEN 5-325 mg tablet 2020-10 00:00: 00 Yes [id number] TAKE 1 TABLET BY MOUTH EVERY FOUR HOURS NEEDED FOR PAIN [facility] HYDROCODONE -ACETAMINOP HEN 5-325 mg tablet 2020-10 00:00: 00 Yes [id number] TAKE 1 TABLET BY MOUTH EVERY FOUR HOURS NEEDED FOR PAIN [facility] HYDROCODONE -ACETAMINOP HEN 5-325 mg tablet 2020-10 00:00: 00 Yes [id number] TAKE 1 TABLET BY MOUTH EVERY FOUR HOURS NEEDED FOR PAIN [facility] HYDROCODONE -ACETAMINOP HEN 5-325 mg tablet 2020-10 00:00: 00 Yes [id number] TAKE 1 TABLET BY MOUTH EVERY FOUR HOURS NEEDED FOR PAIN [facility] HYDROCODONE -ACETAMINOP HEN 5-325 mg tablet 2020-10 00:00: 00 Yes [id number] TAKE 1 TABLET BY MOUTH EVERY FOUR HOURS NEEDED FOR PAIN [facility] HYDROCODONE -ACETAMINOP HEN 5-325 mg tablet 2020-10 00:00: 00 Yes [id number] TAKE 1 TABLET BY MOUTH EVERY FOUR HOURS NEEDED FOR PAIN [facility] HYDROCODONE -ACETAMINOP HEN 5-325 mg tablet 2020-10 00:00: 00 Yes [id number] TAKE 1 TABLET BY MOUTH EVERY FOUR HOURS NEEDED FOR PAIN [facility] HYDROCODONE -ACETAMINOP HEN 5-325 mg tablet 2020-10 00:00: 00 Yes [id number] TAKE 1 TABLET BY MOUTH EVERY FOUR HOURS NEEDED FOR PAIN [facility] HYDROCODONE -ACETAMINOP HEN 5-325 mg tablet 2020-10 00:00: 00 Yes [id number] TAKE 1 TABLET BY MOUTH EVERY FOUR HOURS NEEDED FOR PAIN [facility] HYDROCODONE -ACETAMINOP HEN 5-325 mg tablet 2020-10 00:00: 00 Yes [id number] TAKE 1 TABLET BY MOUTH EVERY FOUR HOURS NEEDED FOR PAIN [facility] HYDROCODONE -ACETAMINOP HEN 5-325 mg tablet 2020-10 00:00: 00 Yes [id number] TAKE 1 TABLET BY MOUTH EVERY FOUR HOURS NEEDED FOR PAIN [facility] HYDROCODONE -ACETAMINOP HEN 5-325 mg tablet 2020-10 00:00: 00 12-16 00:00 :00 No [id number] TAKE 1 TABLET BY MOUTH EVERY FOUR HOURS NEEDED FOR PAIN [facility] HYDROCODONE -ACETAMINOP HEN 5-325 mg tablet 2020-10 00:00: 00 12-16 00:00 :00 No [id number] TAKE 1 TABLET BY MOUTH EVERY FOUR HOURS NEEDED FOR PAIN [facility] HYDROCODONE -ACETAMINOP HEN 5-325 mg tablet 2020-10 00:00: 00 12-16 00:00 :00 No [id number] TAKE 1 TABLET BY MOUTH EVERY FOUR HOURS NEEDED FOR [facility] AL[facility] 0.25 mg tablet 2020-10 00:00: 00 Yes [id number] TAKE 1/2 TABLET BY MOUTH THREE TIMES DAILY NEEDED FOR ANXIETY [facility] ALPRAZOLAM 0.25 mg tablet 2020-10 00:00: 00 Yes [id number] TAKE 1/2 TABLET BY MOUTH THREE TIMES DAILY NEEDED FOR ANXIETY [facility] ALPRAZOLAM 0.25 mg tablet 2020-10 00:00: 00 Yes [id number] TAKE 1/2 TABLET BY MOUTH THREE TIMES DAILY NEEDED FOR ANXIETY [facility] ALPRAZOLAM 0.25 mg tablet 2020-10 00:00: 00 Yes [id number] TAKE 1/2 TABLET BY MOUTH THREE TIMES DAILY NEEDED FOR ANXIETY [facility] ALPRAZOLAM 0.25 mg tablet 2020-10 00:00: 00 Yes [id number] TAKE 1/2 TABLET BY MOUTH THREE TIMES DAILY NEEDED FOR ANXIETY [facility] 0.25 mg tablet 2020-10 00:00: 00 Yes [id number] TAKE 1/2 TABLET BY MOUTH THREE TIMES DAILY NEEDED FOR ANXIETY [facility] ALPR[facility] 0.25 mg tablet 2020-10 00:00: 00 Yes [id number] TAKE 1/2 TABLET BY MOUTH THREE TIMES DAILY NEEDED FOR ANXIETY [facility] ALPRAZOLAM 0.25 mg tablet 2020-10 00:00: 00 Yes [id number] TAKE 1/2 TABLET BY MOUTH THREE TIMES DAILY NEEDED FOR ANXIETY [facility] ALPRAZOLAM 0.25 mg tablet 2020-10 00:00: 00 09-22 00:00 :00 No [id number] TAKE 1/2 TABLET BY MOUTH THREE TIMES DAILY NEEDED FOR ANXIETY [facility] ALPR[facility]OLAM 0.25 mg tablet 2020-10 00:00: 00 09-22 00:00 :00 No [id number] TAKE 1/2 TABLET BY MOUTH THREE TIMES DAILY NEEDED FOR ANXIETY [facility] mirtazapine 7.5 mg tablet 11-26 00:00: 00 Yes [id number] 7.5mg Take 1 tablet by mouth at bedtime. [facility]5 mg tablet 2020-0 24 00:00: 00 Yes [id number] 7.5mg Take 1 tablet by mouth at bedtime. [facility] mirtazapine 7.5 mg tablet 2020-0 2-24 00:00: 00 Yes [id number] 7.5mg Take 1 tablet by mouth at bedtime. [facility] mirtazapine 7.5 mg tablet 2020-0 2-24 00:00: 00 Yes [id number] 7.5mg Take 1 tablet by mouth at bedtime. [facility] mirtazapine 7.5 mg tablet 2020-0 2-24 00:00: 00 Yes [id number] 7.5mg Take 1 tablet by mouth at bedtime. [facility] mirtazapine 7.5 mg tablet 0 2-24 00:00: 00 Yes [id number] 7.5mg Take 1 tablet by mouth at bedtime. [facility] mirtazapine 7.5 mg tablet 0 2-24 00:00: 00 Yes [id number] 7.5mg Take 1 tablet by mouth at bedtime. [facility] mirtazapine 7.5 mg tablet 2020-0 2-24 00:00: 00 Yes [id number] 7.5mg Take 1 tablet by mouth at bedtime. [facility] mirtazapine 7.5 mg tablet 0 2-24 00:00: 00 09-22 00:00 :00 No [id number] 7.5mg Take 1 tablet by mouth at bedtime. [facility] mirtazapine 7.5 mg tablet 224 00:00: 00 09-22 00:00 :00 No [id number] 7.5mg Take 1 tablet by mouth at bedtime. [facility] LORazepam 0.5 mg tablet 2020-0 20 00:00: 00 Yes [id number] .5mg Take 1 tablet by mouth 2 (two) times daily as needed for Anxiety. [facility] LORazepam 0.5 mg tablet 0 20 00:00: 00 Yes [id number] .5mg Take 1 tablet by mouth 2 (two) times daily as needed for Anxiety. [facility] LORazepam 0.5 mg tablet 2020-0 1-20 00:00: 00 Yes [id number] .5mg Take 1 tablet by mouth 2 (two) times daily as needed for Anxiety. [facility] LORazepam 0.5 mg tablet 2020-0 1-20 00:00: 00 Yes [id number] .5mg Take 1 tablet by mouth 2 (two) times daily as needed for Anxiety. [facility] LORazepam 0.5 mg tablet 2020-0 1-20 00:00: 00 Yes [id number] .5mg Take 1 tablet by mouth 2 (two) times daily as needed for Anxiety. [facility] LORazepam 0.5 mg tablet 2020-0 20 00:00: 00 Yes [id number] .5mg Take 1 tablet by mouth 2 (two) times daily as needed for Anxiety. [facility] LORazepam 0.5 mg tablet 0 20 00:00: 00 Yes [id number] .5mg Take 1 tablet by mouth 2 (two) times daily as needed for Anxiety. [facility] LORazepam 0.5 mg tablet 2020-0 10-22 00:00: 00 Yes [id number] .5mg Take 1 tablet by mouth 2 (two) times daily as needed for Anxiety. [facility] LORazepam 0.5 mg tablet 10-22 00:00: 00 09-22 00:00 :00 No [id number] .5mg Take 1 tablet by mouth 2 (two) times daily as needed for Anxiety. [facility] LORazepam 0.5 mg tablet 10-22 00:00: 00 09-22 00:00 :00 No [id number] .5mg Take 1 tablet by mouth 2 (two) times daily as needed for Anxiety. [facility] ondansetron 4 mg tablet 2020-10-21 00:00: 00 Yes 4mg Take 1 tablet by mouth every 4 (four) hours as needed for Nausea and Vomiting (N/V). [facility] ondansetron 4 mg tablet 0 10-21 00:00: 00 Yes 4mg Take 1 tablet by mouth every 4 (four) hours as needed for Nausea and Vomiting (N/V). [facility] ondansetron 4 mg tablet 0 10-21 00:00: 00 Yes 4mg Take 1 tablet by mouth every 4 (four) hours as needed for Nausea and Vomiting (N/V). [facility] ondansetron 4 mg tablet 2020-0 10-21 00:00: 00 Yes 4mg Take 1 tablet by mouth every 4 (four) hours as needed for Nausea and Vomiting (N/V). [facility] ondansetron 4 mg tablet 2020-0 10-21 00:00: 00 Yes 4mg Take 1 tablet by mouth every 4 (four) hours as needed for Nausea and Vomiting (N/V). [facility] ondansetron 4 mg tablet 0 10-21 00:00: 00 Yes 4mg Take 1 tablet by mouth every 4 (four) hours as needed for Nausea and Vomiting (N/V). [facility] ondansetron 4 mg tablet 2020-0 10-21 00:00: 00 Yes 4mg Take 1 tablet by mouth every 4 (four) hours as needed for Nausea and Vomiting (N/V). [facility] ondansetron 4 mg tablet 2020-0 10-21 00:00: 00 Yes 4mg Take 1 tablet by mouth every 4 (four) hours as needed for Nausea and Vomiting (N/V). [facility] ondansetron 4 mg tablet 0 10-21 00:00: 00 Yes 4mg Take 1 tablet by mouth every 4 (four) hours as needed for Nausea and Vomiting (N/V). [facility] ondansetron 4 mg tablet 2020-0 10-21 00:00: 00 Yes 4mg Take 1 tablet by mouth every 4 (four) hours as needed for Nausea and Vomiting (N/V). [facility] ondansetron 4 mg tablet 0 10-21 00:00: 00 Yes 4mg Take 1 tablet by mouth every 4 (four) hours as needed for Nausea and Vomiting (N/V). [facility] ondansetron 4 mg tablet 2020-0 10-21 00:00: 00 Yes 4mg Take 1 tablet by mouth every 4 (four) hours as needed for Nausea and Vomiting (N/V). [facility] ondansetron 4 mg tablet 2020-0 10-21 00:00: 00 Yes 4mg Take 1 tablet by mouth every 4 (four) hours as needed for Nausea and Vomiting (N/V). [facility] ondansetron 4 mg tablet 2020-0 10-21 00:00: 00 Yes 4mg Take 1 tablet by mouth every 4 (four) hours as needed for Nausea and Vomiting (N/V). [facility] ondansetron 4 mg tablet 2020-0 10-21 00:00: 00 Yes 4mg Take 1 tablet by mouth every 4 (four) hours as needed for Nausea and Vomiting (N/V). [facility] ondansetron 4 mg tablet 2020-0 10-21 00:00: 00 Yes 4mg Take 1 tablet by mouth every 4 (four) hours as needed for Nausea and Vomiting (N/V). [facility] ondansetron 4 mg tablet 2020-0 10-21 00:00: 00 Yes 4mg Take 1 tablet by mouth every 4 (four) hours as needed for Nausea and Vomiting (N/V). [facility] ondansetron 4 mg tablet 2020-0 10-21 00:00: 00 Yes 4mg Take 1 tablet by mouth every 4 (four) hours as needed for Nausea and Vomiting (N/V). [facility] ondansetron 4 mg tablet 2020-0 10-21 00:00: 00 Yes 4mg Take 1 tablet by mouth every 4 (four) hours as needed for Nausea and Vomiting (N/V). [facility] ondansetron 4 mg tablet 2020-0 10-21 00:00: 00 Yes 4mg Take 1 tablet by mouth every 4 (four) hours as needed for Nausea and Vomiting (N/V). [facility] ondansetron 4 mg tablet 2020-0 10-21 00:00: 00 Yes 4mg Take 1 tablet by mouth every 4 (four) hours as needed for Nausea and Vomiting (N/V). [facility] ondansetron 4 mg tablet 2020-0 10-21 00:00: 00 Yes 4mg Take 1 tablet by mouth every 4 (four) hours as needed for Nausea and Vomiting (N/V). [facility] ondansetron 4 mg tablet 2020-0 10-21 00:00: 00 Yes 4mg Take 1 tablet by mouth every 4 (four) hours as needed for Nausea and Vomiting (N/V). [facility] ondansetron 4 mg tablet 2020-0 - 00:00: 00 Yes 4mg Take 1 tablet by mouth every 4 (four) hours as needed for Nausea and Vomiting (N/V). [facility] ondansetron 4 mg tablet 10-21 00:00: 00 Yes 4mg Take 1 tablet by mouth every 4 (four) hours as needed for Nausea and Vomiting (N/V). [facility] ondansetron 4 mg tablet 10-21 00:00: 00 Yes 4mg Take 1 tablet by mouth every 4 (four) hours as needed for Nausea and Vomiting (N/V). [facility] ondansetron 4 mg tablet 10-21 00:00: 00 Yes 4mg Take 1 tablet by mouth every 4 (four) hours as needed for Nausea and Vomiting (N/V). [facility] ondansetron 4 mg tablet 10-21 00:00: 00 Yes 4mg Take 1 tablet by mouth every 4 (four) hours as needed for Nausea and Vomiting (N/V). [facility] ondansetron 4 mg tablet 10-21 00:00: 00 01-05 00:00 :00 No 4mg Take 1 tablet by mouth every 4 (four) hours as needed for Nausea and Vomiting (N/V). [facility] ondansetron 4 mg tablet 10-21 00:00: 00 01-05 00:00 :00 No 4mg Take 1 tablet by mouth every 4 (four) hours as needed for Nausea and Vomiting (N/V). [facility] ondansetron 4 mg tablet 10-21 00:00: 00 01-05 00:00 :00 No 4mg Take 1 tablet by mouth every 4 (four) hours as needed for Nausea and Vomiting (N/V). [facility] ondansetron 4 mg tablet 10-21 00:00: 00 01-05 00:00 :00 No 4mg Take 1 tablet by mouth every 4 (four) hours as needed for Nausea and Vomiting (N/V). [facility] metroNIDAZO LE (FLAGYL) 500 mg tablet - 00:00: 00 Yes [id number] 500mg Take 1 tablet by mouth every 8 (eight) hours. [facility] neomycin-po lymyxin-hyd rocortisone 3.5-10,000- 1 mg/mL-unit/ mL-% otic susp 10-16 00:00: 00 Yes [id number] 3[drp] Place 3 Drops in left ear 4 (four) times daily. [facility] metroNIDAZO LE (FLAGYL) 500 mg tablet 10-16 00:00: 00 Yes [id number] 500mg Take 1 tablet by mouth every 8 (eight) hours. [facility] neomycin-po lymyxin-hyd rocortisone 3.5-10,000- 1 mg/mL-unit/ mL-% otic susp 10-16 00:00: 00 Yes [id number] 3[drp] Place 3 Drops in left ear 4 (four) times daily. [facility] metroNIDAZO LE (FLAGYL) 500 mg tablet 10-16 00:00: 00 Yes [id number] 500mg Take 1 tablet by mouth every 8 (eight) hours. [facility] neomycin-po lymyxin-hyd rocortisone 3.5-10,000- 1 mg/mL-unit/ mL-% otic susp 10-16 00:00: 00 Yes [id number] 3[drp] Place 3 Drops in left ear 4 (four) times daily. [facility] metroNIDAZO LE (FLAGYL) 500 mg tablet 10-16 00:00: 00 Yes [id number] 500mg Take 1 tablet by mouth every 8 (eight) hours. [facility] neomycin-po lymyxin-hyd rocortisone 3.5-10,000- 1 mg/mL-unit/ mL-% otic susp 10-16 00:00: 00 Yes [id number] 3[drp] Place 3 Drops in left ear 4 (four) times daily. [facility] metroNIDAZO LE (FLAGYL) 500 mg tablet 10-16 00:00: 00 Yes [id number] 500mg Take 1 tablet by mouth every 8 (eight) hours. [facility] neomycin-po lymyxin-hyd rocortisone 3.5-10,000- 1 mg/mL-unit/ mL-% otic susp 10-16 00:00: 00 Yes [id number] 3[drp] Place 3 Drops in left ear 4 (four) times daily. [facility] metroNIDAZO LE (FLAGYL) 500 mg tablet 10-16 00:00: 00 Yes [id number] 500mg Take 1 tablet by mouth every 8 (eight) hours. [facility] neomycin-po lymyxin-hyd rocortisone 3.5-10,000- 1 mg/mL-unit/ mL-% otic susp 10-16 00:00: 00 Yes [id number] 3[drp] Place 3 Drops in left ear 4 (four) times daily. [facility] metroNIDAZO LE (FLAGYL) 500 mg tablet 10-16 00:00: 00 Yes [id number] 500mg Take 1 tablet by mouth every 8 (eight) hours. [facility] neomycin-po lymyxin-hyd rocortisone 3.5-10,000- 1 mg/mL-unit/ mL-% otic susp 10-16 00:00: 00 Yes [id number] 3[drp] Place 3 Drops in left ear 4 (four) times daily. [facility] metroNIDAZO LE (FLAGYL) 500 mg tablet 10-16 00:00: 00 Yes [id number] 500mg Take 1 tablet by mouth every 8 (eight) hours. [facility] neomycin-po lymyxin-hyd rocortisone 3.5-10,000- 1 mg/mL-unit/ mL-% otic susp 10-16 00:00: 00 Yes [id number] 3[drp] Place 3 Drops in left ear 4 (four) times daily. [facility] metroNIDAZO LE (FLAGYL) 500 mg tablet 10-16 00:00: 00 Yes [id number] 500mg Take 1 tablet by mouth every 8 (eight) hours. [facility] neomycin-po lymyxin-hyd rocortisone 3.5-10,000- 1 mg/mL-unit/ mL-% otic susp 10-16 00:00: 00 Yes [id number] 3[drp] Place 3 Drops in left ear 4 (four) times daily. [facility] metroNIDAZO LE (FLAGYL) 500 mg tablet 10-16 00:00: 00 Yes [id number] 500mg Take 1 tablet by mouth every 8 (eight) hours. [facility] neomycin-po lymyxin-hyd rocortisone 3.5-10,000- 1 mg/mL-unit/ mL-% otic susp 10-16 00:00: 00 Yes [id number] 3[drp] Place 3 Drops in left ear 4 (four) times daily. [facility] metroNIDAZO LE (FLAGYL) 500 mg tablet 10-16 00:00: 00 Yes [id number] 500mg Take 1 tablet by mouth every 8 (eight) hours. [facility] neomycin-po lymyxin-hyd rocortisone 3.5-10,000- 1 mg/mL-unit/ mL-% otic susp 10-16 00:00: 00 Yes [id number] 3[drp] Place 3 Drops in left ear 4 (four) times daily. [facility] metroNIDAZO LE (FLAGYL) 500 mg tablet 10-16 00:00: 00 Yes [id number] 500mg Take 1 tablet by mouth every 8 (eight) hours. [facility] neomycin-po lymyxin-hyd rocortisone 3.5-10,000- 1 mg/mL-unit/ mL-% otic susp 10-16 00:00: 00 Yes [id number] 3[drp] Place 3 Drops in left ear 4 (four) times daily. [facility] metroNIDAZO LE (FLAGYL) 500 mg tablet 10-16 00:00: 00 Yes [id number] 500mg Take 1 tablet by mouth every 8 (eight) hours. [facility] neomycin-po lymyxin-hyd rocortisone 3.5-10,000- 1 mg/mL-unit/ mL-% otic susp 10-16 00:00: 00 Yes [id number] 3[drp] Place 3 Drops in left ear 4 (four) times daily. [facility] metroNIDAZO LE (FLAGYL) 500 mg tablet 10-16 00:00: 00 Yes [id number] 500mg Take 1 tablet by mouth every 8 (eight) hours. [facility] neomycin-po lymyxin-hyd rocortisone 3.5-10,000- 1 mg/mL-unit/ mL-% otic susp 10-16 00:00: 00 Yes [id number] 3[drp] Place 3 Drops in left ear 4 (four) times daily. [facility] metroNIDAZO LE (FLAGYL) 500 mg tablet 10-16 00:00: 00 Yes [id number] 500mg Take 1 tablet by mouth every 8 (eight) hours. [facility] neomycin-po lymyxin-hyd rocortisone 3.5-10,000- 1 mg/mL-unit/ mL-% otic susp 10-16 00:00: 00 Yes [id number] 3[drp] Place 3 Drops in left ear 4 (four) times daily. [facility] metroNIDAZO LE (FLAGYL) 500 mg tablet 10-16 00:00: 00 Yes [id number] 500mg Take 1 tablet by mouth every 8 (eight) hours. [facility] neomycin-po lymyxin-hyd rocortisone 3.5-10,000- 1 mg/mL-unit/ mL-% otic susp 10-16 00:00: 00 Yes [id number] 3[drp] Place 3 Drops in left ear 4 (four) times daily. [facility] metroNIDAZO LE (FLAGYL) 500 mg tablet 10-16 00:00: 00 Yes [id number] 500mg Take 1 tablet by mouth every 8 (eight) hours. [facility] neomycin-po lymyxin-hyd rocortisone 3.5-10,000- 1 mg/mL-unit/ mL-% otic susp 10-16 00:00: 00 Yes [id number] 3[drp] Place 3 Drops in left ear 4 (four) times daily. [facility] metroNIDAZO LE (FLAGYL) 500 mg tablet 10-16 00:00: 00 Yes [id number] 500mg Take 1 tablet by mouth every 8 (eight) hours. [facility] neomycin-po lymyxin-hyd rocortisone 3.5-10,000- 1 mg/mL-unit/ mL-% otic susp 10-16 00:00: 00 Yes [id number] 3[drp] Place 3 Drops in left ear 4 (four) times daily. [facility] ([place]) 500 mg tablet 10-16 00:00: 00 Yes [id number] 500mg Take 1 tablet by mouth every 8 (eight) hours. [facility] neomycin-po lymyxin-hyd rocortisone 3.5-10,000- 1 mg/mL-unit/ mL-% otic susp 10-16 00:00: 00 Yes [id number] 3[drp] Place 3 Drops in left ear 4 (four) times daily. [facility] ([place]) 500 mg tablet 10-16 00:00: 00 Yes [id number] 500mg Take 1 tablet by mouth every 8 (eight) hours. [facility] neomycin-po lymyxin-hyd rocortisone 3.5-10,000- 1 mg/mL-unit/ mL-% otic susp 10-16 00:00: 00 Yes [id number] 3[drp] Place 3 Drops in left ear 4 (four) times daily. [facility] ([place]) 500 mg tablet 10-16 00:00: 00 Yes [id number] 500mg Take 1 tablet by mouth every 8 (eight) hours. [facility] neomycin-po lymyxin-hyd rocortisone 3.5-10,000- 1 mg/mL-unit/ mL-% otic susp 10-16 00:00: 00 Yes [id number] 3[drp] Place 3 Drops in left ear 4 (four) times daily. [facility] ([place]) 500 mg tablet 10-16 00:00: 00 Yes [id number] 500mg Take 1 tablet by mouth every 8 (eight) hours. [facility] neomycin-po lymyxin-hyd rocortisone 3.5-10,000- 1 mg/mL-unit/ mL-% otic susp 10-16 00:00: 00 Yes [id number] 3[drp] Place 3 Drops in left ear 4 (four) times daily. [facility] ([place]) 500 mg tablet 10-16 00:00: 00 Yes [id number] 500mg Take 1 tablet by mouth every 8 (eight) hours. [facility] neomycin-po lymyxin-hyd rocortisone 3.5-10,000- 1 mg/mL-unit/ mL-% otic susp 10-16 00:00: 00 Yes [id number] 3[drp] Place 3 Drops in left ear 4 (four) times daily. [facility] ([place]) 500 mg tablet 10-16 00:00: 00 Yes [id number] 500mg Take 1 tablet by mouth every 8 (eight) hours. [facility] neomycin-po lymyxin-hyd rocortisone 3.5-10,000- 1 mg/mL-unit/ mL-% otic susp 10-16 00:00: 00 Yes [id number] 3[drp] Place 3 Drops in left ear 4 (four) times daily. [facility] ([place]) 500 mg tablet 10-16 00:00: 00 Yes [id number] 500mg Take 1 tablet by mouth every 8 (eight) hours. [facility] neomycin-po lymyxin-hyd rocortisone 3.5-10,000- 1 mg/mL-unit/ mL-% otic susp 10-16 00:00: 00 Yes [id number] 3[drp] Place 3 Drops in left ear 4 (four) times daily. [facility] ([place]) 500 mg tablet 10-16 00:00: 00 Yes [id number] 500mg Take 1 tablet by mouth every 8 (eight) hours. [facility] neomycin-po lymyxin-hyd rocortisone 3.5-10,000- 1 mg/mL-unit/ mL-% otic susp 10-16 00:00: 00 Yes [id number] 3[drp] Place 3 Drops in left ear 4 (four) times daily. [facility] ([place]) 500 mg tablet 10-16 00:00: 00 Yes [id number] 500mg Take 1 tablet by mouth every 8 (eight) hours. [facility] neomycin-po lymyxin-hyd rocortisone 3.5-10,000- 1 mg/mL-unit/ mL-% otic susp 10-16 00:00: 00 Yes [id number] 3[drp] Place 3 Drops in left ear 4 (four) times daily. [facility] ([place]) 500 mg tablet 10-16 00:00: 00 Yes [id number] 500mg Take 1 tablet by mouth every 8 (eight) hours. [facility] neomycin-po lymyxin-hyd rocortisone 3.5-10,000- 1 mg/mL-unit/ mL-% otic susp 10-16 00:00: 00 Yes [id number] 3[drp] Place 3 Drops in left ear 4 (four) times daily. [facility] ([place]) 500 mg tablet 10-16 00:00: 00 Yes [id number] 500mg Take 1 tablet by mouth every 8 (eight) hours. [facility] neomycin-po lymyxin-hyd rocortisone 3.5-10,000- 1 mg/mL-unit/ mL-% otic susp 10-16 00:00: 00 Yes [id number] 3[drp] Place 3 Drops in left ear 4 (four) times daily. [facility] ([place]) 500 mg tablet 10-16 00:00: 00 Yes [id number] 500mg Take 1 tablet by mouth every 8 (eight) hours. [facility] neomycin-po lymyxin-hyd rocortisone 3.5-10,000- 1 mg/mL-unit/ mL-% otic susp 10-16 00:00: 00 Yes [id number] 3[drp] Place 3 Drops in left ear 4 (four) times daily. [facility] ([place]) 500 mg tablet 10-16 00:00: 00 Yes [id number] 500mg Take 1 tablet by mouth every 8 (eight) hours. [facility] neomycin-po lymyxin-hyd rocortisone 3.5-10,000- 1 mg/mL-unit/ mL-% otic susp 10-16 00:00: 00 Yes [id number] 3[drp] Place 3 Drops in left ear 4 (four) times daily. [facility] ([place]) 500 mg tablet 10-16 00:00: 00 Yes [id number] 500mg Take 1 tablet by mouth every 8 (eight) hours. [facility] neomycin-po lymyxin-hyd rocortisone 3.5-10,000- 1 mg/mL-unit/ mL-% otic susp 10-16 00:00: 00 Yes [id number] 3[drp] Place 3 Drops in left ear 4 (four) times daily. [facility] ([place]) 500 mg tablet 10-16 00:00: 00 Yes [id number] 500mg Take 1 tablet by mouth every 8 (eight) hours. [facility] neomycin-po lymyxin-hyd rocortisone 3.5-10,000- 1 mg/mL-unit/ mL-% otic susp 10-16 00:00: 00 Yes [id number] 3[drp] Place 3 Drops in left ear 4 (four) times daily. [facility] ([place]) 500 mg tablet 10-16 00:00: 00 Yes [id number] 500mg Take 1 tablet by mouth every 8 (eight) hours. [facility] neomycin-po lymyxin-hyd rocortisone 3.5-10,000- 1 mg/mL-unit/ mL-% otic susp 10-16 00:00: 00 Yes [id number] 3[drp] Place 3 Drops in left ear 4 (four) times daily. [facility] ([place]) 500 mg tablet 10-16 00:00: 00 Yes [id number] 500mg Take 1 tablet by mouth every 8 (eight) hours. [facility] neomycin-po lymyxin-hyd rocortisone 3.5-10,000- 1 mg/mL-unit/ mL-% otic susp 10-16 00:00: 00 Yes [id number] 3[drp] Place 3 Drops in left ear 4 (four) times daily. [facility] ([place]) 500 mg tablet 10-16 00:00: 00 Yes [id number] 500mg Take 1 tablet by mouth every 8 (eight) hours. [facility] neomycin-po lymyxin-hyd rocortisone 3.5-10,000- 1 mg/mL-unit/ mL-% otic susp 10-16 00:00: 00 Yes [id number] 3[drp] Place 3 Drops in left ear 4 (four) times daily. [facility] ([place]) 500 mg tablet 10-16 00:00: 00 Yes [id number] 500mg Take 1 tablet by mouth every 8 (eight) hours. [facility] neomycin-po lymyxin-hyd rocortisone 3.5-10,000- 1 mg/mL-unit/ mL-% otic susp 10-16 00:00: 00 Yes [id number] 3[drp] Place 3 Drops in left ear 4 (four) times daily. [facility] ([place]) 500 mg tablet 10-16 00:00: 00 Yes [id number] 500mg Take 1 tablet by mouth every 8 (eight) hours. [facility] neomycin-po lymyxin-hyd rocortisone 3.5-10,000- 1 mg/mL-unit/ mL-% otic susp 10-16 00:00: 00 Yes [id number] 3[drp] Place 3 Drops in left ear 4 (four) times daily. [facility] ([place]) 500 mg tablet 10-16 00:00: 00 Yes [id number] 500mg Take 1 tablet by mouth every 8 (eight) hours. [facility] neomycin-po lymyxin-hyd rocortisone 3.5-10,000- 1 mg/mL-unit/ mL-% otic susp 10-16 00:00: 00 Yes [id number] 3[drp] Place 3 Drops in left ear 4 (four) times daily. [facility] ([place]) 500 mg tablet 10-16 00:00: 00 Yes [id number] 500mg Take 1 tablet by mouth every 8 (eight) hours. [facility] neomycin-po lymyxin-hyd rocortisone 3.5-10,000- 1 mg/mL-unit/ mL-% otic susp 10-16 00:00: 00 Yes [id number] 3[drp] Place 3 Drops in left ear 4 (four) times daily. [facility] ([place]) 500 mg tablet 10-16 00:00: 00 Yes [id number] 500mg Take 1 tablet by mouth every 8 (eight) hours. [facility] neomycin-po lymyxin-hyd rocortisone 3.5-10,000- 1 mg/mL-unit/ mL-% otic susp 10-16 00:00: 00 Yes [id number] 3[drp] Place 3 Drops in left ear 4 (four) times daily. [facility] ([place]) 500 mg tablet 10-16 00:00: 00 Yes [id number] 500mg Take 1 tablet by mouth every 8 (eight) hours. [facility] neomycin-po lymyxin-hyd rocortisone 3.5-10,000- 1 mg/mL-unit/ mL-% otic susp 10-16 00:00: 00 Yes [id number] 3[drp] Place 3 Drops in left ear 4 (four) times daily. [facility] ([place]) 500 mg tablet 10-16 00:00: 00 Yes [id number] 500mg Take 1 tablet by mouth every 8 (eight) hours. [facility] neomycin-po lymyxin-hyd rocortisone 3.5-10,000- 1 mg/mL-unit/ mL-% otic susp 10-16 00:00: 00 Yes [id number] 3[drp] Place 3 Drops in left ear 4 (four) times daily. [facility] ([place]) 500 mg tablet 10-16 00:00: 00 Yes [id number] 500mg Take 1 tablet by mouth every 8 (eight) hours. [facility] neomycin-po lymyxin-hyd rocortisone 3.5-10,000- 1 mg/mL-unit/ mL-% otic susp 10-16 00:00: 00 Yes [id number] 3[drp] Place 3 Drops in left ear 4 (four) times daily. [facility] ([place]) 500 mg tablet 10-16 00:00: 00 Yes [id number] 500mg Take 1 tablet by mouth every 8 (eight) hours. [facility] neomycin-po lymyxin-hyd rocortisone 3.5-10,000- 1 mg/mL-unit/ mL-% otic susp 10-16 00:00: 00 Yes [id number] 3[drp] Place 3 Drops in left ear 4 (four) times daily. [facility] ([place]) 500 mg tablet 10-16 00:00: 00 Yes [id number] 500mg Take 1 tablet by mouth every 8 (eight) hours. [facility] neomycin-po lymyxin-hyd rocortisone 3.5-10,000- 1 mg/mL-unit/ mL-% otic susp 10-16 00:00: 00 Yes [id number] 3[drp] Place 3 Drops in left ear 4 (four) times daily. [facility] ([place]) 500 mg tablet 10-16 00:00: 00 Yes [id number] 500mg Take 1 tablet by mouth every 8 (eight) hours. [facility] neomycin-po lymyxin-hyd rocortisone 3.5-10,000- 1 mg/mL-unit/ mL-% otic susp 10-16 00:00: 00 Yes [id number] 3[drp] Place 3 Drops in left ear 4 (four) times daily. [facility] ([place]) 500 mg tablet 10-16 00:00: 00 Yes [id number] 500mg Take 1 tablet by mouth every 8 (eight) hours. [facility] neomycin-po lymyxin-hyd rocortisone 3.5-10,000- 1 mg/mL-unit/ mL-% otic susp 10-16 00:00: 00 Yes [id number] 3[drp] Place 3 Drops in left ear 4 (four) times daily. [facility] ([place]) 500 mg tablet 10-16 00:00: 00 Yes [id number] 500mg Take 1 tablet by mouth every 8 (eight) hours. [facility] neomycin-po lymyxin-hyd rocortisone 3.5-10,000- 1 mg/mL-unit/ mL-% otic susp 10-16 00:00: 00 Yes [id number] 3[drp] Place 3 Drops in left ear 4 (four) times daily. [facility] ([place]) 500 mg tablet 10-16 00:00: 00 Yes [id number] 500mg Take 1 tablet by mouth every 8 (eight) hours. [facility] neomycin-po lymyxin-hyd rocortisone 3.5-10,000- 1 mg/mL-unit/ mL-% otic susp 10-16 00:00: 00 Yes [id number] 3[drp] Place 3 Drops in left ear 4 (four) times daily. [facility] ([facility]) 500 mg tablet 10-16 00:00: 00 Yes [id number] 500mg Take 1 tablet by mouth every 8 (eight) hours. [facility] neomycin-po lymyxin-hyd rocortisone 3.5-10,000- 1 mg/mL-unit/ mL-% otic susp 10-16 00:00: 00 Yes [id number] 3[drp] Place 3 Drops in left ear 4 (four) times daily. [facility] ([place]) 500 mg tablet 10-16 00:00: 00 Yes [id number] 500mg Take 1 tablet by mouth every 8 (eight) hours. [facility] neomycin-po lymyxin-hyd rocortisone 3.5-10,000- 1 mg/mL-unit/ mL-% otic susp 10-16 00:00: 00 Yes [id number] 3[drp] Place 3 Drops in left ear 4 (four) times daily. [facility] ([place]) 500 mg tablet 10-16 00:00: 00 Yes [id number] 500mg Take 1 tablet by mouth every 8 (eight) hours. [facility] neomycin-po lymyxin-hyd rocortisone 3.5-10,000- 1 mg/mL-unit/ mL-% otic susp 10-16 00:00: 00 Yes [id number] 3[drp] Place 3 Drops in left ear 4 (four) times daily. [facility] ([place]) 500 mg tablet 10-16 00:00: 00 Yes [id number] 500mg Take 1 tablet by mouth every 8 (eight) hours. [facility] neomycin-po lymyxin-hyd rocortisone 3.5-10,000- 1 mg/mL-unit/ mL-% otic susp 10-16 00:00: 00 Yes [id number] 3[drp] Place 3 Drops in left ear 4 (four) times daily. [facility] ([place]) 500 mg tablet 10-16 00:00: 00 Yes [id number] 500mg Take 1 tablet by mouth every 8 (eight) hours. [facility] neomycin-po lymyxin-hyd rocortisone 3.5-10,000- 1 mg/mL-unit/ mL-% otic susp 10-16 00:00: 00 Yes [id number] 3[drp] Place 3 Drops in left ear 4 (four) times daily. [facility] ([place]) 500 mg tablet 10-16 00:00: 00 Yes [id number] 500mg Take 1 tablet by mouth every 8 (eight) hours. [facility] neomycin-po lymyxin-hyd rocortisone 3.5-10,000- 1 mg/mL-unit/ mL-% otic susp 10-16 00:00: 00 Yes [id number] 3[drp] Place 3 Drops in left ear 4 (four) times daily. [facility] ([facility]) 500 mg tablet 10-16 00:00: 00 Yes [id number] 500mg Take 1 tablet by mouth every 8 (eight) hours. [facility] neomycin-po lymyxin-hyd rocortisone 3.5-10,000- 1 mg/mL-unit/ mL-% otic susp 10-16 00:00: 00 Yes [id number] 3[drp] Place 3 Drops in left ear 4 (four) times daily. [facility] ([facility]) 500 mg tablet 10-16 00:00: 00 Yes [id number] 500mg Take 1 tablet by mouth every 8 (eight) hours. [facility] neomycin-po lymyxin-hyd rocortisone 3.5-10,000- 1 mg/mL-unit/ mL-% otic susp 10-16 00:00: 00 Yes [id number] 3[drp] Place 3 Drops in left ear 4 (four) times daily. [facility] ([facility]) 500 mg tablet 10-16 00:00: 00 Yes [id number] 500mg Take 1 tablet by mouth every 8 (eight) hours. [facility] neomycin-po lymyxin-hyd rocortisone 3.5-10,000- 1 mg/mL-unit/ mL-% otic susp 10-16 00:00: 00 Yes [id number] 3[drp] Place 3 Drops in left ear 4 (four) times daily. [facility] ([place]) 500 mg tablet 10-16 00:00: 00 Yes [id number] 500mg Take 1 tablet by mouth every 8 (eight) hours. [facility] neomycin-po lymyxin-hyd rocortisone 3.5-10,000- 1 mg/mL-unit/ mL-% otic susp 10-16 00:00: 00 Yes [id number] 3[drp] Place 3 Drops in left ear 4 (four) times daily. [facility] ([place]) 500 mg tablet 10-16 00:00: 00 Yes [id number] 500mg Take 1 tablet by mouth every 8 (eight) hours. [facility] neomycin-po lymyxin-hyd rocortisone 3.5-10,000- 1 mg/mL-unit/ mL-% otic susp 10-16 00:00: 00 Yes [id number] 3[drp] Place 3 Drops in left ear 4 (four) times daily. [facility] ([facility]) 500 mg tablet 10-16 00:00: 00 Yes [id number] 500mg Take 1 tablet by mouth every 8 (eight) hours. [facility] neomycin-po lymyxin-hyd rocortisone 3.5-10,000- 1 mg/mL-unit/ mL-% otic susp 10-16 00:00: 00 Yes [id number] 3[drp] Place 3 Drops in left ear 4 (four) times daily. [facility] ([facility]) 500 mg tablet 10-16 00:00: 00 Yes [id number] 500mg Take 1 tablet by mouth every 8 (eight) hours. [facility] neomycin-po lymyxin-hyd rocortisone 3.5-10,000- 1 mg/mL-unit/ mL-% otic susp 10-16 00:00: 00 Yes [id number] 3[drp] Place 3 Drops in left ear 4 (four) times daily. [facility] ([facility]) 500 mg tablet 10-16 00:00: 00 Yes [id number] 500mg Take 1 tablet by mouth every 8 (eight) hours. [facility] neomycin-po lymyxin-hyd rocortisone 3.5-10,000- 1 mg/mL-unit/ mL-% otic susp 10-16 00:00: 00 Yes [id number] 3[drp] Place 3 Drops in left ear 4 (four) times daily. [facility] ([facility]YL) 500 mg tablet 10-16 00:00: 00 Yes [id number] 500mg Take 1 tablet by mouth every 8 (eight) hours. [facility] neomycin-po lymyxin-hyd rocortisone 3.5-10,000- 1 mg/mL-unit/ mL-% otic susp 10-16 00:00: 00 Yes [id number] 3[drp] Place 3 Drops in left ear 4 (four) times daily. [facility] ([facility]) 500 mg tablet 10-16 00:00: 00 Yes [id number] 500mg Take 1 tablet by mouth every 8 (eight) hours. [facility] neomycin-po lymyxin-hyd rocortisone 3.5-10,000- 1 mg/mL-unit/ mL-% otic susp 10-16 00:00: 00 Yes [id number] 3[drp] Place 3 Drops in left ear 4 (four) times daily. [facility] ([facility]YL) 500 mg tablet 10-16 00:00: 00 Yes [id number] 500mg Take 1 tablet by mouth every 8 (eight) hours. [facility] neomycin-po lymyxin-hyd rocortisone 3.5-10,000- 1 mg/mL-unit/ mL-% otic susp 10-16 00:00: 00 Yes [id number] 3[drp] Place 3 Drops in left ear 4 (four) times daily. [facility] (FLAGYL) 500 mg tablet 10-16 00:00: 00 Yes [id number] 500mg Take 1 tablet by mouth every 8 (eight) hours. [facility] neomycin-po lymyxin-hyd rocortisone 3.5-10,000- 1 mg/mL-unit/ mL-% otic susp 10-16 00:00: 00 Yes [id number] 3[drp] Place 3 Drops in left ear 4 (four) times daily. [facility] ([place]) 500 mg tablet 10-16 00:00: 00 Yes [id number] 500mg Take 1 tablet by mouth every 8 (eight) hours. [facility] neomycin-po lymyxin-hyd rocortisone 3.5-10,000- 1 mg/mL-unit/ mL-% otic susp 10-16 00:00: 00 Yes [id number] 3[drp] Place 3 Drops in left ear 4 (four) times daily. [facility] ([facility]YL) 500 mg tablet 10-16 00:00: 00 Yes [id number] 500mg Take 1 tablet by mouth every 8 (eight) hours. [facility] neomycin-po lymyxin-hyd rocortisone 3.5-10,000- 1 mg/mL-unit/ mL-% otic susp 10-16 00:00: 00 Yes [id number] 3[drp] Place 3 Drops in left ear 4 (four) times daily. [facility] ([facility]YL) 500 mg tablet 10-16 00:00: 00 Yes [id number] 500mg Take 1 tablet by mouth every 8 (eight) hours. [facility] neomycin-po lymyxin-hyd rocortisone 3.5-10,000- 1 mg/mL-unit/ mL-% otic susp 10-16 00:00: 00 Yes [id number] 3[drp] Place 3 Drops in left ear 4 (four) times daily. [facility] ([facility]) 500 mg tablet 10-16 00:00: 00 Yes [id number] 500mg Take 1 tablet by mouth every 8 (eight) hours. [facility] neomycin-po lymyxin-hyd rocortisone 3.5-10,000- 1 mg/mL-unit/ mL-% otic susp 10-16 00:00: 00 Yes [id number] 3[drp] Place 3 Drops in left ear 4 (four) times daily. [facility] (FLAGYL) 500 mg tablet 10-16 00:00: 00 Yes [id number] 500mg Take 1 tablet by mouth every 8 (eight) hours. [facility] neomycin-po lymyxin-hyd rocortisone 3.5-10,000- 1 mg/mL-unit/ mL-% otic susp 10-16 00:00: 00 Yes [id number] 3[drp] Place 3 Drops in left ear 4 (four) times daily. [facility] (FLAGYL) 500 mg tablet 10-16 00:00: 00 Yes [id number] 500mg Take 1 tablet by mouth every 8 (eight) hours. [facility] neomycin-po lymyxin-hyd rocortisone 3.5-10,000- 1 mg/mL-unit/ mL-% otic susp 10-16 00:00: 00 Yes [id number] 3[drp] Place 3 Drops in left ear 4 (four) times daily. [facility] ([facility]YL) 500 mg tablet 10-16 00:00: 00 Yes [id number] 500mg Take 1 tablet by mouth every 8 (eight) hours. [facility] neomycin-po lymyxin-hyd rocortisone 3.5-10,000- 1 mg/mL-unit/ mL-% otic susp 10-16 00:00: 00 Yes [id number] 3[drp] Place 3 Drops in left ear 4 (four) times daily. [facility] ([facility]YL) 500 mg tablet 10-16 00:00: 00 Yes [id number] 500mg Take 1 tablet by mouth every 8 (eight) hours. [facility] neomycin-po lymyxin-hyd rocortisone 3.5-10,000- 1 mg/mL-unit/ mL-% otic susp 10-16 00:00: 00 Yes [id number] 3[drp] Place 3 Drops in left ear 4 (four) times daily. [facility] neomycin-po lymyxin-hyd rocortisone 3.5-10,000- 1 mg/mL-unit/ mL-% otic susp 10-16 00:00: 00 Yes [id number] 3[drp] Place 3 Drops in left ear 4 (four) times daily. [facility] neomycin-po lymyxin-hyd rocortisone 3.5-10,000- 1 mg/mL-unit/ mL-% otic susp 10-16 00:00: 00 Yes [id number] 3[drp] Place 3 Drops in left ear 4 (four) times daily. [facility] ([facility]YL) 500 mg tablet 10-16 00:00: 00 11-14 00:00 :00 No [id number] 500mg Take 1 tablet by mouth every 8 (eight) hours. [facility] ([facility]) 500 mg tablet 10-16 00:00: 00 11-14 00:00 :00 No [id number] 500mg Take 1 tablet by mouth every 8 (eight) hours. [facility] sennosides- docusate sodium (ADONIS-COLAC E) 8.6-50 mg per tablet 02-10 00:00: 00 Yes [id number] 1{tbl} Take 1 tablet by mouth daily. [facility] sennosides- docusate sodium (ADONIS-COLAC E) 8.6-50 mg per tablet 02-10 00:00: 00 Yes [id number] 1{tbl} Take 1 tablet by mouth daily. [facility] sennosides- docusate sodium (ADONIS-COLAC E) 8.6-50 mg per tablet 02-10 00:00: 00 Yes [id number] 1{tbl} Take 1 tablet by mouth daily. [facility] sennosides- docusate sodium (ADONIS-COLAC E) 8.6-50 mg per tablet 02-10 00:00: 00 Yes [id number] 1{tbl} Take 1 tablet by mouth daily. [facility] sennosides- docusate sodium (ADONIS-COLAC E) 8.6-50 mg per tablet 02-10 00:00: 00 Yes [id number] 1{tbl} Take 1 tablet by mouth daily. [facility] sennosides- docusate sodium (ADONIS-COLAC E) 8.6-50 mg per tablet 02-10 00:00: 00 Yes [id number] 1{tbl} Take 1 tablet by mouth daily. [facility] sennosides- docusate sodium (ADONIS-COLAC E) 8.6-50 mg per tablet 2019-0 5- 00:00: 00 Yes [id number] 1{tbl} Take 1 tablet by mouth daily. [facility] ity [facility] sennosides- docusate sodium (ADONIS-COLAC E) 8.6-50 mg per tablet 2019-0 5- 00:00: 00 Yes [id number] 1{tbl} Take 1 tablet by mouth daily. [facility] (ADONIS-COLAC E) 8.6-50 mg per tablet 2019-0 5- 00:00: 00 Yes [id number] 1{tbl} Take 1 tablet by mouth daily. [facility] sennosides- docusate sodium (ADONIS-COLAC E) 8.6-50 mg per tablet 0 5- 00:00: 00 Yes [id number] 1{tbl} Take 1 tablet by mouth daily. [facility] sennosides- docusate sodium (ADONIS-COLAC E) 8.6-50 mg per tablet 2019-0 5- 00:00: 00 Yes [id number] 1{tbl} Take 1 tablet by mouth daily. [facility] sennosides- docusate sodium (ADONIS-COLAC E) 8.6-50 mg per tablet 2019-0 5-11 00:00: 00 Yes [id number] 1{tbl} Take 1 tablet by mouth daily. [facility] docusate sodium (ADONIS-COLAC E) 8.6-50 mg per tablet 0 5-11 00:00: 00 Yes [id number] 1{tbl} Take 1 tablet by mouth daily. [facility] ity [facility] sennosides- docusate sodium (ADONIS-COLAC E) 8.6-50 mg per tablet 2020-0 5-11 00:00: 00 Yes [id number] 1{tbl} Take 1 tablet by mouth daily. [facility] (ADONIS-COLAC E) 8.6-50 mg per tablet 02-10 00:00: 00 Yes [id number] 1{tbl} Take 1 tablet by mouth daily. [facility]ocusate sodium (ADONIS-COLAC E) 8.6-50 mg per tablet 0 02-10 00:00: 00 Yes [id number] 1{tbl} Take 1 tablet by mouth daily. [facility]- docusate sodium (ADONIS-COLAC E) 8.6-50 mg per tablet 0 02-10 00:00: 00 Yes [id number] 1{tbl} Take 1 tablet by mouth daily. [facility]- docusate sodium (ADONIS-COLAC E) 8.6-50 mg per tablet 02-10 00:00: 00 Yes [id number] 1{tbl} Take 1 tablet by mouth daily. [facility] sennosides- docusate sodium (ADONIS-COLAC E) 8.6-50 mg per tablet 02-10 00:00: 00 Yes [id number] 1{tbl} Take 1 tablet by mouth daily. [facility] sennosides- docusate sodium (ADONIS-COLAC E) 8.6-50 mg per tablet 02-10 00:00: 00 Yes [id number] 1{tbl} Take 1 tablet by mouth daily. [facility] sennosides- docusate sodium (ADONIS-COLAC E) 8.6-50 mg per tablet 02-10 00:00: 00 Yes [id number] 1{tbl} Take 1 tablet by mouth daily. [facility]os[facility]- docusate sodium (ADONIS-COLAC E) 8.6-50 mg per tablet 02-10 00:00: 00 Yes [id number] 1{tbl} Take 1 tablet by mouth daily. [facility] sennosides- docusate sodium (ADONIS-COLAC E) 8.6-50 mg per tablet 0 02-10 00:00: 00 Yes [id number] 1{tbl} Take 1 tablet by mouth daily. [facility] sennosides- docusate sodium (ADONIS-COLAC E) 8.6-50 mg per tablet 0 - 00:00: 00 Yes [id number] 1{tbl} Take 1 tablet by mouth daily. [facility] ity [facility] sennosides- docusate sodium (ADONIS-COLAC E) 8.6-50 mg per tablet 0 - 00:00: 00 Yes [id number] 1{tbl} Take 1 tablet by mouth daily. [facility] it[facility] sennosides- docusate sodium (ADONIS-COLAC E) 8.6-50 mg per tablet 0 - 00:00: 00 Yes [id number] 1{tbl} Take 1 tablet by mouth daily. [facility]ennos[facility]- docusate sodium (ADONIS-COLAC E) 8.6-50 mg per tablet 0 02-10 00:00: 00 Yes [id number] 1{tbl} Take 1 tablet by mouth daily. [facility]ennosides- docusate sodium (ADONIS-COLAC E) 8.6-50 mg per tablet 0 02-10 00:00: 00 Yes [id number] 1{tbl} Take 1 tablet by mouth daily. [facility] sennosides- docusate sodium (ADONIS-COLAC E) 8.6-50 mg per tablet 02-10 00:00: 00 Yes [id number] 1{tbl} Take 1 tablet by mouth daily. [facility] sennosides- docusate sodium (ADONIS-COLAC E) 8.6-50 mg per tablet 02-10 00:00: 00 Yes [id number] 1{tbl} Take 1 tablet by mouth daily. [facility] it[facility] sennosides- docusate sodium (ADONIS-COLAC E) 8.6-50 mg per tablet 0 - 00:00: 00 Yes [id number] 1{tbl} Take 1 tablet by mouth daily. [facility]ennosides- docusate sodium (ADONIS-COLAC E) 8.6-50 mg per tablet 0 - 00:00: 00 Yes [id number] 1{tbl} Take 1 tablet by mouth daily. [facility]ennosides- docusate sodium (ADONIS-COLAC E) 8.6-50 mg per tablet 0 02-10 00:00: 00 Yes [id number] 1{tbl} Take 1 tablet by mouth daily. [facility] it[facility] sennosides- docusate sodium (ADONIS-COLAC E) 8.6-50 mg per tablet 0 - 00:00: 00 Yes [id number] 1{tbl} Take 1 tablet by mouth daily. [facility]ennosides- docusate sodium (ADONIS-COLAC E) 8.6-50 mg per tablet 0 02-10 00:00: 00 Yes [id number] 1{tbl} Take 1 tablet by mouth daily. [facility] sennosides- docusate sodium (ADONIS-COLAC E) 8.6-50 mg per tablet 0 02-10 00:00: 00 Yes [id number] 1{tbl} Take 1 tablet by mouth daily. [facility] sennosides- docusate sodium (ADONIS-COLAC E) 8.6-50 mg per tablet 0 02-10 00:00: 00 Yes [id number] 1{tbl} Take 1 tablet by mouth daily. [facility] sennosides- docusate sodium (ADONIS-COLAC E) 8.6-50 mg per tablet 0 02-10 00:00: 00 Yes [id number] 1{tbl} Take 1 tablet by mouth daily. [facility]ennosides- docusate sodium (ADONIS-COLAC E) 8.6-50 mg per tablet 0 - 00:00: 00 Yes [id number] 1{tbl} Take 1 tablet by mouth daily. [facility]ennosides- docusate sodium (ADONIS-COLAC E) 8.6-50 mg per tablet 0 - 00:00: 00 Yes [id number] 1{tbl} Take 1 tablet by mouth daily. [facility]ennosides- docusate sodium (ADONIS-COLAC E) 8.6-50 mg per tablet 02-10 00:00: 00 Yes [id number] 1{tbl} Take 1 tablet by mouth daily. [facility] sennosides- docusate sodium (ADONIS-COLAC E) 8.6-50 mg per tablet 02-10 00:00: 00 Yes [id number] 1{tbl} Take 1 tablet by mouth daily. [facility] sennosides- docusate sodium (ADONIS-COLAC E) 8.6-50 mg per tablet 02-10 00:00: 00 Yes [id number] 1{tbl} Take 1 tablet by mouth daily. [facility] sennosides- docusate sodium (ADONIS-COLAC E) 8.6-50 mg per tablet 02-10 00:00: 00 Yes [id number] 1{tbl} Take 1 tablet by mouth daily. [facility] sennosides- docusate sodium (ADONIS-COLAC E) 8.6-50 mg per tablet 02-10 00:00: 00 Yes [id number] 1{tbl} Take 1 tablet by mouth daily. [facility] sennosides- docusate sodium (ADONIS-COLAC E) 8.6-50 mg per tablet 02-10 00:00: 00 Yes [id number] 1{tbl} Take 1 tablet by mouth daily. [facility] sennosides- docusate sodium (ADONIS-COLAC E) 8.6-50 mg per tablet 02-10 00:00: 00 Yes [id number] 1{tbl} Take 1 tablet by mouth daily. [facility] sennosides- docusate sodium (ADONSI-COLAC E) 8.6-50 mg per tablet 02-10 00:00: 00 Yes [id number] 1{tbl} Take 1 tablet by mouth daily. [facility] sennosides- docusate sodium (ADONIS-COLAC E) 8.6-50 mg per tablet 0 - 00:00: 00 Yes [id number] 1{tbl} Take 1 tablet by mouth daily. [facility] sennosides- docusate sodium (ADONIS-COLAC E) 8.6-50 mg per tablet 0 - 00:00: 00 Yes [id number] 1{tbl} Take 1 tablet by mouth daily. [facility]ennosides- docusate sodium (ADONIS-COLAC E) 8.6-50 mg per tablet 0 - 00:00: 00 Yes [id number] 1{tbl} Take 1 tablet by mouth daily. [facility]ennosides- docusate sodium (ADONIS-COLAC E) 8.6-50 mg per tablet 0 - 00:00: 00 Yes [id number] 1{tbl} Take 1 tablet by mouth daily. [facility] sennosides- docusate sodium (ADONIS-COLAC E) 8.6-50 mg per tablet 0 - 00:00: 00 Yes [id number] 1{tbl} Take 1 tablet by mouth daily. [facility] sennosides- docusate sodium (ADONIS-COLAC E) 8.6-50 mg per tablet 0 - 00:00: 00 Yes [id number] 1{tbl} Take 1 tablet by mouth daily. [facility] sennosides- docusate sodium (ADONIS-COLAC E) 8.6-50 mg per tablet 0 - 00:00: 00 Yes [id number] 1{tbl} Take 1 tablet by mouth daily. [facility] sennosides- docusate sodium (ADONIS-COLAC E) 8.6-50 mg per tablet 0 - 00:00: 00 Yes [id number] 1{tbl} Take 1 tablet by mouth daily. [facility]ennosides- docusate sodium (ADONIS-COLAC E) 8.6-50 mg per tablet 0 5- 00:00: 00 Yes [id number] 1{tbl} Take 1 tablet by mouth daily. [facility]ennosides- docusate sodium (ADONIS-COLAC E) 8.6-50 mg per tablet 202002-10 00:00: 00 Yes [id number] 1{tbl} Take 1 tablet by mouth daily. [facility] sennosides- docusate sodium (ADONIS-COLAC E) 8.6-50 mg per tablet 02-10 00:00: 00 Yes [id number] 1{tbl} Take 1 tablet by mouth daily. [facility] it[facility] sennosides- docusate sodium (ADONIS-COLAC E) 8.6-50 mg per tablet 0 02-10 00:00: 00 Yes [id number] 1{tbl} Take 1 tablet by mouth daily. [facility] sennosides- docusate sodium (ADONIS-COLAC E) 8.6-50 mg per tablet 02-10 00:00: 00 Yes [id number] 1{tbl} Take 1 tablet by mouth daily. [facility] sennosides- docusate sodium (ADONIS-COLAC E) 8.6-50 mg per tablet 02-10 00:00: 00 Yes [id number] 1{tbl} Take 1 tablet by mouth daily. [facility] sennosides- docusate sodium (ADONIS-COLAC E) 8.6-50 mg per tablet 02-10 00:00: 00 Yes [id number] 1{tbl} Take 1 tablet by mouth daily. [facility] sennosides- docusate sodium (ADONIS-COLAC E) 8.6-50 mg per tablet 0 02-10 00:00: 00 Yes [id number] 1{tbl} Take 1 tablet by mouth daily. [facility] sennosides- docusate sodium (ADONIS-COLAC E) 8.6-50 mg per tablet 0 02-10 00:00: 00 Yes [id number] 1{tbl} Take 1 tablet by mouth daily. [facility] sennosides- docusate sodium (ADONIS-COLAC E) 8.6-50 mg per tablet 0 - 00:00: 00 Yes [id number] 1{tbl} Take 1 tablet by mouth daily. [facility] it[facility] sennosides- docusate sodium (ADONIS-COLAC E) 8.6-50 mg per tablet 02-10 00:00: 00 Yes [id number] 1{tbl} Take 1 tablet by mouth daily. [facility] sennosides- docusate sodium (ADONIS-COLAC E) 8.6-50 mg per tablet 02-10 00:00: 00 Yes [id number] 1{tbl} Take 1 tablet by mouth daily. [facility] sennosides- docusate sodium (ADONIS-COLAC E) 8.6-50 mg per tablet 02-10 00:00: 00 Yes [id number] 1{tbl} Take 1 tablet by mouth daily. [facility] sennosides- docusate sodium (ADONIS-COLAC E) 8.6-50 mg per tablet 02-10 00:00: 00 Yes [id number] 1{tbl} Take 1 tablet by mouth daily. [facility] sennosides- docusate sodium (ADONIS-COLAC E) 8.6-50 mg per tablet 02-10 00:00: 00 Yes [id number] 1{tbl} Take 1 tablet by mouth daily. [facility] sennosides- docusate sodium (ADONIS-COLAC E) 8.6-50 mg per tablet 02-10 00:00: 00 Yes [id number] 1{tbl} Take 1 tablet by mouth daily. [facility] sennosides- docusate sodium (ADONIS-COLAC E) 8.6-50 mg per tablet 02-10 00:00: 00 Yes [id number] 1{tbl} Take 1 tablet by mouth daily. [facility] sennosides- docusate sodium (ADONIS-COLAC E) 8.6-50 mg per tablet 02-10 00:00: 00 Yes [id number] 1{tbl} Take 1 tablet by mouth daily. [facility] sennosides- docusate sodium (ADONIS-COLAC E) 8.6-50 mg per tablet 0 - 00:00: 00 Yes [id number] 1{tbl} Take 1 tablet by mouth daily. [facility] sennosides- docusate sodium (ADONIS-COLAC E) 8.6-50 mg per tablet 02-10 00:00: 00 Yes [id number] 1{tbl} Take 1 tablet by mouth daily. [facility] sennosides- docusate sodium (ADONIS-COLAC E) 8.6-50 mg per tablet 02-10 00:00: 00 Yes [id number] 1{tbl} Take 1 tablet by mouth daily. [facility] sennosides- docusate sodium (ADONIS-COLAC E) 8.6-50 mg per tablet 02-10 00:00: 00 Yes [id number] 1{tbl} Take 1 tablet by mouth daily. [facility] ondansetron (ZOFRAN) 4 mg tablet 2017-10 00:00: 00 Yes 4mg Take 1 tablet by mouth every 8 (eight) hours as needed for Nausea and Vomiting (N/V). [facility] ondansetron (ZOFRAN) 4 mg tablet 2017-10 00:00: 00 Yes 4mg Take 1 tablet by mouth every 8 (eight) hours as needed for Nausea and Vomiting (N/V). [facility] ondansetron (ZOFRAN) 4 mg tablet 2017-10 00:00: 00 Yes 4mg Take 1 tablet by mouth every 8 (eight) hours as needed for Nausea and Vomiting (N/V). [facility] ondansetron (ZOFRAN) 4 mg tablet 2017-10 00:00: 00 Yes 4mg Take 1 tablet by mouth every 8 (eight) hours as needed for Nausea and Vomiting (N/V). [facility] ondansetron (ZOFRAN) 4 mg tablet 2017-10 00:00: 00 Yes 4mg Take 1 tablet by mouth every 8 (eight) hours as needed for Nausea and Vomiting (N/V). [facility] ondansetron (ZOFRAN) 4 mg tablet 2017-10 00:00: 00 Yes 4mg Take 1 tablet by mouth every 8 (eight) hours as needed for Nausea and Vomiting (N/V). [facility] ondansetron (ZOFRAN) 4 mg tablet 2017-10 00:00: 00 Yes 4mg Take 1 tablet by mouth every 8 (eight) hours as needed for Nausea and Vomiting (N/V). [facility] ondansetron (ZOFRAN) 4 mg tablet 2017-10 00:00: 00 Yes 4mg Take 1 tablet by mouth every 8 (eight) hours as needed for Nausea and Vomiting (N/V). [facility] ondansetron (ZOFRAN) 4 mg tablet 2017-10 00:00: 00 Yes 4mg Take 1 tablet by mouth every 8 (eight) hours as needed for Nausea and Vomiting (N/V). [facility] ondansetron (ZOFRAN) 4 mg tablet 2017-10 00:00: 00 Yes 4mg Take 1 tablet by mouth every 8 (eight) hours as needed for Nausea and Vomiting (N/V). [facility] ondansetron (ZOFRAN) 4 mg tablet 2017-10 00:00: 00 Yes 4mg Take 1 tablet by mouth every 8 (eight) hours as needed for Nausea and Vomiting (N/V). [facility] ondansetron (ZOFRAN) 4 mg tablet 2017-10 00:00: 00 Yes 4mg Take 1 tablet by mouth every 8 (eight) hours as needed for Nausea and Vomiting (N/V). [facility] ondansetron (ZOFRAN) 4 mg tablet 2017-10 00:00: 00 Yes 4mg Take 1 tablet by mouth every 8 (eight) hours as needed for Nausea and Vomiting (N/V). [facility] ondansetron (ZOFRAN) 4 mg tablet 2017-10 00:00: 00 Yes 4mg Take 1 tablet by mouth every 8 (eight) hours as needed for Nausea and Vomiting (N/V). [facility] ondansetron (ZOFRAN) 4 mg tablet 2017-10 00:00: 00 Yes 4mg Take 1 tablet by mouth every 8 (eight) hours as needed for Nausea and Vomiting (N/V). [facility] ondansetron (ZOFRAN) 4 mg tablet 2017-10 00:00: 00 Yes 4mg Take 1 tablet by mouth every 8 (eight) hours as needed for Nausea and Vomiting (N/V). [facility] ondansetron (ZOFRAN) 4 mg tablet 2017-10 00:00: 00 Yes 4mg Take 1 tablet by mouth every 8 (eight) hours as needed for Nausea and Vomiting (N/V). [facility] ondansetron (ZOFRAN) 4 mg tablet 2017-10 00:00: 00 Yes 4mg Take 1 tablet by mouth every 8 (eight) hours as needed for Nausea and Vomiting (N/V). [facility] ondansetron (ZOFRAN) 4 mg tablet 2017-10 00:00: 00 Yes 4mg Take 1 tablet by mouth every 8 (eight) hours as needed for Nausea and Vomiting (N/V). [facility] ondansetron (ZOFRAN) 4 mg tablet 2017-10 00:00: 00 Yes 4mg Take 1 tablet by mouth every 8 (eight) hours as needed for Nausea and Vomiting (N/V). [facility] ondansetron (ZOFRAN) 4 mg tablet 2017-10 00:00: 00 Yes 4mg Take 1 tablet by mouth every 8 (eight) hours as needed for Nausea and Vomiting (N/V). [facility] ondansetron (ZOFRAN) 4 mg tablet 2017-10 00:00: 00 Yes 4mg Take 1 tablet by mouth every 8 (eight) hours as needed for Nausea and Vomiting (N/V). [facility] ondansetron (ZOFRAN) 4 mg tablet 2017-10 00:00: 00 Yes 4mg Take 1 tablet by mouth every 8 (eight) hours as needed for Nausea and Vomiting (N/V). [facility] ondansetron (ZOFRAN) 4 mg tablet 2017-10 00:00: 00 Yes 4mg Take 1 tablet by mouth every 8 (eight) hours as needed for Nausea and Vomiting (N/V). [facility] ondansetron (ZOFRAN) 4 mg tablet 2017-10 00:00: 00 Yes 4mg Take 1 tablet by mouth every 8 (eight) hours as needed for Nausea and Vomiting (N/V). [facility] ondansetron (ZOFRAN) 4 mg tablet 2017-10 00:00: 00 Yes 4mg Take 1 tablet by mouth every 8 (eight) hours as needed for Nausea and Vomiting (N/V). [facility] ondansetron (ZOFRAN) 4 mg tablet 2017-10 00:00: 00 Yes 4mg Take 1 tablet by mouth every 8 (eight) hours as needed for Nausea and Vomiting (N/V). [facility] ondansetron (ZOFRAN) 4 mg tablet 2017-10 00:00: 00 Yes 4mg Take 1 tablet by mouth every 8 (eight) hours as needed for Nausea and Vomiting (N/V). [facility] ondansetron (ZOFRAN) 4 mg tablet 2017-10 00:00: 00 Yes 4mg Take 1 tablet by mouth every 8 (eight) hours as needed for Nausea and Vomiting (N/V). [facility] ondansetron (ZOFRAN) 4 mg tablet 2017-10 00:00: 00 Yes 4mg Take 1 tablet by mouth every 8 (eight) hours as needed for Nausea and Vomiting (N/V). [facility] ondansetron (ZOFRAN) 4 mg tablet 2017-10 00:00: 00 Yes 4mg Take 1 tablet by mouth every 8 (eight) hours as needed for Nausea and Vomiting (N/V). [facility] ondansetron (ZOFRAN) 4 mg tablet 2017-10 00:00: 00 Yes 4mg Take 1 tablet by mouth every 8 (eight) hours as needed for Nausea and Vomiting (N/V). [facility] ondansetron (ZOFRAN) 4 mg tablet 2017-10 00:00: 00 Yes 4mg Take 1 tablet by mouth every 8 (eight) hours as needed for Nausea and Vomiting (N/V). [facility] ondansetron (ZOFRAN) 4 mg tablet 2017-10 00:00: 00 Yes 4mg Take 1 tablet by mouth every 8 (eight) hours as needed for Nausea and Vomiting (N/V). [facility] ondansetron (ZOFRAN) 4 mg tablet 2017-10 00:00: 00 Yes 4mg Take 1 tablet by mouth every 8 (eight) hours as needed for Nausea and Vomiting (N/V). [facility] ondansetron (ZOFRAN) 4 mg tablet 2017-10 00:00: 00 Yes 4mg Take 1 tablet by mouth every 8 (eight) hours as needed for Nausea and Vomiting (N/V). [facility] ondansetron (ZOFRAN) 4 mg tablet 2017-10 00:00: 00 Yes 4mg Take 1 tablet by mouth every 8 (eight) hours as needed for Nausea and Vomiting (N/V). [facility] ondansetron (ZOFRAN) 4 mg tablet 2017-10 00:00: 00 Yes 4mg Take 1 tablet by mouth every 8 (eight) hours as needed for Nausea and Vomiting (N/V). [facility] ondansetron (ZOFRAN) 4 mg tablet 2017-10 00:00: 00 Yes 4mg Take 1 tablet by mouth every 8 (eight) hours as needed for Nausea and Vomiting (N/V). [facility] ondansetron (ZOFRAN) 4 mg tablet 2017-10 00:00: 00 Yes 4mg Take 1 tablet by mouth every 8 (eight) hours as needed for Nausea and Vomiting (N/V). [facility] ondansetron (ZOFRAN) 4 mg tablet 2017-10 00:00: 00 Yes 4mg Take 1 tablet by mouth every 8 (eight) hours as needed for Nausea and Vomiting (N/V). [facility] ondansetron (ZOFRAN) 4 mg tablet 2017-10 00:00: 00 Yes 4mg Take 1 tablet by mouth every 8 (eight) hours as needed for Nausea and Vomiting (N/V). [facility] ondansetron (ZOFRAN) 4 mg tablet 2017-10 00:00: 00 Yes 4mg Take 1 tablet by mouth every 8 (eight) hours as needed for Nausea and Vomiting (N/V). [facility] ondansetron (ZOFRAN) 4 mg tablet 2017-10 00:00: 00 Yes 4mg Take 1 tablet by mouth every 8 (eight) hours as needed for Nausea and Vomiting (N/V). [facility] ondansetron (ZOFRAN) 4 mg tablet 2017-10 00:00: 00 Yes 4mg Take 1 tablet by mouth every 8 (eight) hours as needed for Nausea and Vomiting (N/V). [facility] ondansetron (ZOFRAN) 4 mg tablet 2017-10 00:00: 00 Yes 4mg Take 1 tablet by mouth every 8 (eight) hours as needed for Nausea and Vomiting (N/V). [facility] ondansetron (ZOFRAN) 4 mg tablet 2017-10 00:00: 00 Yes 4mg Take 1 tablet by mouth every 8 (eight) hours as needed for Nausea and Vomiting (N/V). [facility] ondansetron (ZOFRAN) 4 mg tablet 2017-10 00:00: 00 Yes 4mg Take 1 tablet by mouth every 8 (eight) hours as needed for Nausea and Vomiting (N/V). [facility] ondansetron (ZOFRAN) 4 mg tablet 2017-10 00:00: 00 Yes 4mg Take 1 tablet by mouth every 8 (eight) hours as needed for Nausea and Vomiting (N/V). [facility] ondansetron (ZOFRAN) 4 mg tablet 2017-10 00:00: 00 Yes 4mg Take 1 tablet by mouth every 8 (eight) hours as needed for Nausea and Vomiting (N/V). [facility] ondansetron (ZOFRAN) 4 mg tablet 2017-10 00:00: 00 Yes 4mg Take 1 tablet by mouth every 8 (eight) hours as needed for Nausea and Vomiting (N/V). [facility] ondansetron (ZOFRAN) 4 mg tablet 2017-10 00:00: 00 Yes 4mg Take 1 tablet by mouth every 8 (eight) hours as needed for Nausea and Vomiting (N/V). [facility] ondansetron (ZOFRAN) 4 mg tablet 2017-10 00:00: 00 Yes 4mg Take 1 tablet by mouth every 8 (eight) hours as needed for Nausea and Vomiting (N/V). [facility] ondansetron (ZOFRAN) 4 mg tablet 2017-10 00:00: 00 Yes 4mg Take 1 tablet by mouth every 8 (eight) hours as needed for Nausea and Vomiting (N/V). [facility] ondansetron (ZOFRAN) 4 mg tablet 2017-10 00:00: 00 05-05 00:00 :00 No 4mg Take 1 tablet by mouth every 8 (eight) hours as needed for Nausea and Vomiting (N/V). [facility] acetaminoph en-codeine (TYLENOL-CO DEINE #3) 300-30 mg tablet 2017-10 00:00: 00 Yes 1{tbl} Take 1 tablet by mouth every 6 (six) hours as needed for Pain (scale 7-10). [facility] acetaminoph en-codeine (TYLENOL-CO DEINE #3) 300-30 mg tablet 2017-10 00:00: 00 Yes 1{tbl} Take 1 tablet by mouth every 6 (six) hours as needed for Pain (scale 7-10). [facility] acetaminoph en-codeine (TYLENOL-CO DEINE #3) 300-30 mg tablet 2017-10 00:00: 00 Yes 1{tbl} Take 1 tablet by mouth every 6 (six) hours as needed for Pain (scale 7-10). [facility] acetaminoph en-codeine (TYLENOL-CO DEINE #3) 300-30 mg tablet 2017-10 00:00: 00 Yes 1{tbl} Take 1 tablet by mouth every 6 (six) hours as needed for Pain (scale 7-10). [facility] acetaminoph en-codeine (TYLENOL-CO DEINE #3) 300-30 mg tablet 2017-10 00:00: 00 Yes 1{tbl} Take 1 tablet by mouth every 6 (six) hours as needed for Pain (scale 7-10). [facility] acetaminoph en-codeine (TYLENOL-CO DEINE #3) 300-30 mg tablet 2017-10 00:00: 00 Yes 1{tbl} Take 1 tablet by mouth every 6 (six) hours as needed for Pain (scale 7-10). [facility] acetaminoph en-codeine (TYLENOL-CO DEINE #3) 300-30 mg tablet 2017-10 00:00: 00 Yes 1{tbl} Take 1 tablet by mouth every 6 (six) hours as needed for Pain (scale 7-10). [facility] acetaminoph en-codeine (TYLENOL-CO DEINE #3) 300-30 mg tablet 2017-10 00:00: 00 Yes 1{tbl} Take 1 tablet by mouth every 6 (six) hours as needed for Pain (scale 7-10). [facility] acetaminoph en-codeine (TYLENOL-CO DEINE #3) 300-30 mg tablet 2017-10 00:00: 00 Yes 1{tbl} Take 1 tablet by mouth every 6 (six) hours as needed for Pain (scale 7-10). [facility] acetaminoph en-codeine (TYLENOL-CO DEINE #3) 300-30 mg tablet 2017-10 00:00: 00 Yes 1{tbl} Take 1 tablet by mouth every 6 (six) hours as needed for Pain (scale 7-10). [facility] acetaminoph en-codeine (TYLENOL-CO DEINE #3) 300-30 mg tablet 2017-10 00:00: 00 Yes 1{tbl} Take 1 tablet by mouth every 6 (six) hours as needed for Pain (scale 7-10). [facility] acetaminoph en-codeine (TYLENOL-CO DEINE #3) 300-30 mg tablet 2017-10 00:00: 00 Yes 1{tbl} Take 1 tablet by mouth every 6 (six) hours as needed for Pain (scale 7-10). [facility] acetaminoph en-codeine (TYLENOL-CO DEINE #3) 300-30 mg tablet 2017-10 00:00: 00 Yes 1{tbl} Take 1 tablet by mouth every 6 (six) hours as needed for Pain (scale 7-10). [facility] acetaminoph en-codeine (TYLENOL-CO DEINE #3) 300-30 mg tablet 2017-10 00:00: 00 Yes 1{tbl} Take 1 tablet by mouth every 6 (six) hours as needed for Pain (scale 7-10). [facility] acetaminoph en-codeine (TYLENOL-CO DEINE #3) 300-30 mg tablet 2017-10 00:00: 00 Yes 1{tbl} Take 1 tablet by mouth every 6 (six) hours as needed for Pain (scale 7-10). [facility] acetaminoph en-codeine (TYLENOL-CO DEINE #3) 300-30 mg tablet 2017-10 00:00: 00 Yes 1{tbl} Take 1 tablet by mouth every 6 (six) hours as needed for Pain (scale 7-10). [facility] acetaminoph en-codeine (TYLENOL-CO DEINE #3) 300-30 mg tablet 2017-10 00:00: 00 Yes 1{tbl} Take 1 tablet by mouth every 6 (six) hours as needed for Pain (scale 7-10). [facility] acetaminoph en-codeine (TYLENOL-CO DEINE #3) 300-30 mg tablet 2017-10 00:00: 00 Yes 1{tbl} Take 1 tablet by mouth every 6 (six) hours as needed for Pain (scale 7-10). [facility] acetaminoph en-codeine (TYLENOL-CO DEINE #3) 300-30 mg tablet 2017-10 00:00: 00 Yes 1{tbl} Take 1 tablet by mouth every 6 (six) hours as needed for Pain (scale 7-10). [facility] acetaminoph en-codeine (TYLENOL-CO DEINE #3) 300-30 mg tablet 2017-10 00:00: 00 Yes 1{tbl} Take 1 tablet by mouth every 6 (six) hours as needed for Pain (scale 7-10). [facility] acetaminoph en-codeine (TYLENOL-CO DEINE #3) 300-30 mg tablet 2017-10 00:00: 00 12-16 00:00 :00 No 1{tbl} Take 1 tablet by mouth every 6 (six) hours as needed for Pain (scale 7-10). [facility] acetaminoph en-codeine (TYLENOL-CO DEINE #3) 300-30 mg tablet 2017-10 00:00: 00 12-16 00:00 :00 No 1{tbl} Take 1 tablet by mouth every 6 (six) hours as needed for Pain (scale 7-10). [facility] acetaminoph en-codeine (TYLENOL-CO DEINE #3) 300-30 mg tablet 2017-10 00:00: 00 12-16 00:00 :00 No 1{tbl} Take 1 tablet by mouth every 6 (six) hours as needed for Pain (scale 7-10). [facility] famotidine 40 mg tablet 04-12 00:00: 00 Yes [id number] 40mg Take 1 tablet by mouth daily. [facility] famotidine 40 mg tablet 04-12 00:00: 00 Yes [id number] 40mg Take 1 tablet by mouth daily. [facility] famotidine 40 mg tablet 04-12 00:00: 00 Yes [id number] 40mg Take 1 tablet by mouth daily. [facility] famotidine 40 mg tablet 04-12 00:00: 00 Yes [id number] 40mg Take 1 tablet by mouth daily. [facility] famotidine 40 mg tablet 04-12 00:00: 00 Yes [id number] 40mg Take 1 tablet by mouth daily. [facility] famotidine 40 mg tablet 04-12 00:00: 00 Yes [id number] 40mg Take 1 tablet by mouth daily. [facility] famotidine 40 mg tablet 04-12 00:00: 00 Yes [id number] 40mg Take 1 tablet by mouth daily. [facility] famotidine 40 mg tablet 04-12 00:00: 00 Yes [id number] 40mg Take 1 tablet by mouth daily. [facility] famotidine 40 mg tablet 04-12 00:00: 00 Yes [id number] 40mg Take 1 tablet by mouth daily. [facility] famotidine 40 mg tablet 04-12 00:00: 00 Yes [id number] 40mg Take 1 tablet by mouth daily. [facility] famotidine 40 mg tablet 04-12 00:00: 00 Yes [id number] 40mg Take 1 tablet by mouth daily. [facility] famotidine 40 mg tablet 04-12 00:00: 00 Yes [id number] 40mg Take 1 tablet by mouth daily. [facility] famotidine 40 mg tablet 04-12 00:00: 00 Yes [id number] 40mg Take 1 tablet by mouth daily. [facility] famotidine 40 mg tablet 04-12 00:00: 00 Yes [id number] 40mg Take 1 tablet by mouth daily. [facility] famotidine 40 mg tablet 04-12 00:00: 00 Yes [id number] 40mg Take 1 tablet by mouth daily. [facility] famotidine 40 mg tablet 04-12 00:00: 00 Yes [id number] 40mg Take 1 tablet by mouth daily. [facility] famotidine 40 mg tablet 04-12 00:00: 00 Yes [id number] 40mg Take 1 tablet by mouth daily. [facility] famotidine 40 mg tablet 04-12 00:00: 00 Yes [id number] 40mg Take 1 tablet by mouth daily. [facility] famotidine 40 mg tablet 04-12 00:00: 00 Yes [id number] 40mg Take 1 tablet by mouth daily. [facility] famotidine 40 mg tablet 04-12 00:00: 00 Yes [id number] 40mg Take 1 tablet by mouth daily. [facility] famotidine 40 mg tablet 04-12 00:00: 00 Yes [id number] 40mg Take 1 tablet by mouth daily. [facility] famotidine 40 mg tablet 04-12 00:00: 00 Yes [id number] 40mg Take 1 tablet by mouth daily. [facility] famotidine 40 mg tablet 04-12 00:00: 00 Yes [id number] 40mg Take 1 tablet by mouth daily. [facility] famotidine 40 mg tablet 04-12 00:00: 00 Yes [id number] 40mg Take 1 tablet by mouth daily. [facility] famotidine 40 mg tablet 04-12 00:00: 00 Yes [id number] 40mg Take 1 tablet by mouth daily. [facility] famotidine 40 mg tablet 04-12 00:00: 00 Yes [id number] 40mg Take 1 tablet by mouth daily. [facility] famotidine 40 mg tablet 04-12 00:00: 00 Yes [id number] 40mg Take 1 tablet by mouth daily. [facility] famotidine 40 mg tablet 04-12 00:00: 00 Yes [id number] 40mg Take 1 tablet by mouth daily. [facility] famotidine 40 mg tablet 04-12 00:00: 00 Yes [id number] 40mg Take 1 tablet by mouth daily. [facility] famotidine 40 mg tablet 04-12 00:00: 00 Yes [id number] 40mg Take 1 tablet by mouth daily. [facility] mg tablet 04-12 00:00: 00 Yes [id number] 40mg Take 1 tablet by mouth daily. [facility] mg tablet 04-12 00:00: 00 Yes [id number] 40mg Take 1 tablet by mouth daily. [facility] mg tablet 04-12 00:00: 00 Yes [id number] 40mg Take 1 tablet by mouth daily. [facility] mg tablet 04-12 00:00: 00 Yes [id number] 40mg Take 1 tablet by mouth daily. [facility] famotidine 40 mg tablet 04-12 00:00: 00 Yes [id number] 40mg Take 1 tablet by mouth daily. [facility] famotidine 40 mg tablet 04-12 00:00: 00 Yes [id number] 40mg Take 1 tablet by mouth daily. [facility] famotidine 40 mg tablet 04-12 00:00: 00 Yes [id number] 40mg Take 1 tablet by mouth daily. [facility] famotidine 40 mg tablet 04-12 00:00: 00 Yes [id number] 40mg Take 1 tablet by mouth daily. [facility] famotidine 40 mg tablet 04-12 00:00: 00 Yes [id number] 40mg Take 1 tablet by mouth daily. [facility] famotidine 40 mg tablet 04-12 00:00: 00 Yes [id number] 40mg Take 1 tablet by mouth daily. [facility] famotidine 40 mg tablet 04-12 00:00: 00 Yes [id number] 40mg Take 1 tablet by mouth daily. [facility] famotidine 40 mg tablet 04-12 00:00: 00 Yes [id number] 40mg Take 1 tablet by mouth daily. [facility] famotidine 40 mg tablet 04-12 00:00: 00 Yes [id number] 40mg Take 1 tablet by mouth daily. [facility] famotidine 40 mg tablet 04-12 00:00: 00 Yes [id number] 40mg Take 1 tablet by mouth daily. [facility] famotidine 40 mg tablet 04-12 00:00: 00 Yes [id number] 40mg Take 1 tablet by mouth daily. [facility] famotidine 40 mg tablet 04-12 00:00: 00 Yes [id number] 40mg Take 1 tablet by mouth daily. [facility] famotidine 40 mg tablet 04-12 00:00: 00 Yes [id number] 40mg Take 1 tablet by mouth daily. [facility] famotidine 40 mg tablet 04-12 00:00: 00 Yes [id number] 40mg Take 1 tablet by mouth daily. [facility] famotidine 40 mg tablet 04-12 00:00: 00 Yes [id number] 40mg Take 1 tablet by mouth daily. [facility] famotidine 40 mg tablet 04-12 00:00: 00 Yes [id number] 40mg Take 1 tablet by mouth daily. [facility] famotidine 40 mg tablet 04-12 00:00: 00 Yes [id number] 40mg Take 1 tablet by mouth daily. [facility] famotidine 40 mg tablet 04-12 00:00: 00 Yes [id number] 40mg Take 1 tablet by mouth daily. [facility] famotidine 40 mg tablet 04-12 00:00: 00 Yes [id number] 40mg Take 1 tablet by mouth daily. [facility] famotidine 40 mg tablet 04-12 00:00: 00 Yes [id number] 40mg Take 1 tablet by mouth daily. [facility] famotidine 40 mg tablet 04-12 00:00: 00 Yes [id number] 40mg Take 1 tablet by mouth daily. [facility] famotidine 40 mg tablet 04-12 00:00: 00 Yes [id number] 40mg Take 1 tablet by mouth daily. [facility] famotidine 40 mg tablet 04-12 00:00: 00 Yes [id number] 40mg Take 1 tablet by mouth daily. [facility] famotidine 40 mg tablet 04-12 00:00: 00 Yes [id number] 40mg Take 1 tablet by mouth daily. [facility] famotidine 40 mg tablet 04-12 00:00: 00 Yes [id number] 40mg Take 1 tablet by mouth daily. [facility] famotidine 40 mg tablet 04-12 00:00: 00 Yes [id number] 40mg Take 1 tablet by mouth daily. [facility] famotidine 40 mg tablet 04-12 00:00: 00 Yes [id number] 40mg Take 1 tablet by mouth daily. [facility] famotidine 40 mg tablet 04-12 00:00: 00 Yes [id number] 40mg Take 1 tablet by mouth daily. [facility] famotidine 40 mg tablet 04-12 00:00: 00 Yes [id number] 40mg Take 1 tablet by mouth daily. [facility] famotidine 40 mg tablet 04-12 00:00: 00 Yes [id number] 40mg Take 1 tablet by mouth daily. [facility] famotidine 40 mg tablet 04-12 00:00: 00 Yes [id number] 40mg Take 1 tablet by mouth daily. [facility] famotidine 40 mg tablet 04-12 00:00: 00 Yes [id number] 40mg Take 1 tablet by mouth daily. [facility] famotidine 40 mg tablet 04-12 00:00: 00 Yes [id number] 40mg Take 1 tablet by mouth daily. [facility] famotidine 40 mg tablet 04-12 00:00: 00 Yes [id number] 40mg Take 1 tablet by mouth daily. [facility] famotidine 40 mg tablet 04-12 00:00: 00 Yes [id number] 40mg Take 1 tablet by mouth daily. [facility] famotidine 40 mg tablet 04-12 00:00: 00 Yes [id number] 40mg Take 1 tablet by mouth daily. [facility] famotidine 40 mg tablet 04-12 00:00: 00 Yes [id number] 40mg Take 1 tablet by mouth daily. [facility] famotidine 40 mg tablet 04-12 00:00: 00 Yes [id number] 40mg Take 1 tablet by mouth daily. [facility] famotidine 40 mg tablet 04-12 00:00: 00 Yes [id number] 40mg Take 1 tablet by mouth daily. [facility] famotidine 40 mg tablet 04-12 00:00: 00 Yes [id number] 40mg Take 1 tablet by mouth daily. [facility] famotidine 40 mg tablet 04-12 00:00: 00 Yes [id number] 40mg Take 1 tablet by mouth daily. [facility] famotidine 40 mg tablet 04-12 00:00: 00 Yes [id number] 40mg Take 1 tablet by mouth daily. [facility] famotidine 40 mg tablet 04-12 00:00: 00 Yes [id number] 40mg Take 1 tablet by mouth daily. [facility] famotidine 40 mg tablet 04-12 00:00: 00 Yes [id number] 40mg Take 1 tablet by mouth daily. [facility] Immunizations Ordered Immunization Name Filled Immunization Name Date Status Comments Source Influenza High Dose Quad 2020-07-03 00:00:00 Completed [facility] Influenza High Dose Quad 2020-07-03 00:00:00 Completed [facility] Influenza High Dose Quad 2020-07-03 00:00:00 Completed [facility] Influenza High Dose Quad 2020-07-03 00:00:00 Completed [facility] Influenza High Dose Quad 2020-07-03 00:00:00 Completed [facility] Influenza High Dose Quad 2020-07-03 00:00:00 Completed [facility] Influenza High Dose Quad 2020-07-03 00:00:00 Completed [facility] Influenza High Dose Quad 2020-07-03 00:00:00 Completed [facility] Influenza High Dose Quad 2020-07-03 00:00:00 Completed [facility] Influenza High Dose Quad 2020-07-03 00:00:00 Completed [facility] Influenza High Dose Quad 2020-07-03 00:00:00 Completed [facility] Influenza High Dose Quad 2020-07-03 00:00:00 Completed [facility] Influenza High Dose Quad 2020-07-03 00:00:00 Completed [facility] Influenza High Dose Quad 2020-07-03 00:00:00 Completed [facility] Influenza High Dose Quad 2020-07-03 00:00:00 Completed [facility] Influenza High Dose Quad 2020-07-03 00:00:00 Completed [facility] Influenza High Dose Quad 2020-07-03 00:00:00 Completed [facility] Influenza High Dose Quad 2020-07-03 00:00:00 Completed [facility] Influenza High Dose Quad 2020-07-03 00:00:00 Completed [facility] Influenza High Dose Quad 2020-07-03 00:00:00 Completed [facility] Influenza High Dose Quad 2020-07-03 00:00:00 Completed [facility] Influenza High Dose Quad 2020-07-03 00:00:00 Completed [facility] Influenza High Dose Quad 2020-07-03 00:00:00 Completed [facility] Influenza High Dose Quad 2020-07-03 00:00:00 Completed [facility] Influenza High Dose Quad 2020-07-03 00:00:00 Completed [facility] Influenza High Dose Quad 2020-07-03 00:00:00 Completed [facility] Influenza High Dose Quad 2020-07-03 00:00:00 Completed [facility] Influenza High Dose Quad 2020-07-03 00:00:00 Completed [facility] Influenza High Dose Quad 2020-07-03 00:00:00 Completed [facility] Influenza High Dose Quad 2020-07-03 00:00:00 Completed [facility] Influenza High Dose Quad 2020-07-03 00:00:00 Completed [facility] Influenza High Dose Quad 2020-07-03 00:00:00 Completed [facility] Influenza High Dose Quad 2020-07-03 00:00:00 Completed [facility] Influenza High Dose Quad 2020-07-03 00:00:00 Completed [facility] Influenza High Dose Quad 2020-07-03 00:00:00 Completed [facility] Influenza High Dose Quad 2020-07-03 00:00:00 Completed [facility] Influenza High Dose Quad 2020-07-03 00:00:00 Completed [facility] Influenza High Dose Quad 2020-07-03 00:00:00 Completed [facility] Influenza High Dose Quad 2020-07-03 00:00:00 Completed [facility] Influenza High Dose Quad 2020-07-03 00:00:00 Completed [facility] Influenza High Dose Quad 2020-07-03 00:00:00 Completed [facility] Influenza High Dose Quad 2020-07-03 00:00:00 Completed [facility] Influenza High Dose Quad 2020-07-03 00:00:00 Completed [facility] Influenza High Dose Quad 2020-07-03 00:00:00 Completed [facility] Influenza High Dose Quad 2020-07-03 00:00:00 Completed [facility] Influenza High Dose Quad 2020-07-03 00:00:00 Completed [facility] Influenza High Dose Quad 2020-07-03 00:00:00 Completed [facility] Influenza High Dose Quad 2020-07-03 00:00:00 Completed [facility] Influenza High Dose Quad 2020-07-03 00:00:00 Completed [facility] Influenza High Dose Quad 2020-07-03 00:00:00 Completed [facility] Influenza High Dose Quad 2020-07-03 00:00:00 Completed [facility] Influenza High Dose Quad 2020-07-03 00:00:00 Completed [facility] Influenza High Dose Quad 2020-07-03 00:00:00 Completed [facility] Influenza High Dose Quad 2020-07-03 00:00:00 Completed [facility] Influenza High Dose Quad 2020-07-03 00:00:00 Completed [facility] Influenza High Dose Quad 2020-07-03 00:00:00 Completed [facility] Influenza High Dose Quad 2020-07-03 00:00:00 Completed [facility] Influenza High Dose Quad 2020-07-03 00:00:00 Completed [facility] Influenza High Dose Quad 2020-07-03 00:00:00 Completed [facility] Influenza High Dose Quad 2020-07-03 00:00:00 Completed [facility] Influenza High Dose Quad 2020-07-03 00:00:00 Completed [facility] Influenza High Dose Quad 2020-07-03 00:00:00 Completed [facility] Influenza High Dose Quad Unknown Completed [facility] Influenza High Dose Quad Unknown Completed [facility] Influenza High Dose Quad Unknown Completed [facility] Influenza High Dose Quad Unknown Completed [facility] Influenza High Dose Quad Unknown Completed [facility] Influenza High Dose Quad Unknown Completed [facility] Influenza High Dose Quad Unknown Completed [facility] Influenza High Dose Quad Unknown Completed [facility] Influenza High Dose Quad Unknown Completed [facility] Influenza High Dose Quad Unknown Completed [facility] Influenza High Dose Quad Unknown Completed [facility] Influenza High Dose Quad Unknown Completed [facility] Influenza High Dose Quad Unknown Completed [facility] Influenza High Dose Quad Unknown Completed [facility] Influenza High Dose Quad Unknown Completed [facility] Influenza High Dose Quad Unknown Completed [facility] Vital Signs Vital Name Observation Time Observation Value Comments S ource Systolic blood pressure 2023-11-14 20:07:00 122 mm[Hg] [facility] Diastolic blood pressure 2023-11-14 20:07:00 74 mm[Hg] [facility] Heart rate 2023-11-14 20:01:00 78 /min [facility] Body temperature 2023-11-14 20:01:00 36.94 [facility] Body height 2023-11-14 20:01:00 165.1 cm [facility] Body weight 2023-11-14 20:01:00 53.978 kg [facility] BMI 2023-11-14 20:01:00 19.80 kg/m2 [facility] Systolic blood pressure 2023-10-05 19:56:00 149 mm[Hg] [facility] Diastolic blood pressure 2023-10-05 19:56:00 81 mm[Hg] [facility] Heart rate 2023-10-05 19:55:00 87 /min [facility] Body height 2023-10-05 19:55:00 165.1 cm [facility] Body weight 2023-10-05 19:55:00 57.97 kg [facility] BMI 2023-10-05 19:55:00 21.27 kg/m2 [facility] Oxygen saturation in Arterial blood by Pulse oximetry 2023-10-05 19:55:00 98 /min [place] [facility] Systolic blood pressure 2023-09-21 19:06:00 131 mm[Hg] [facility] Diastolic blood pressure 2023-09-21 19:06:00 76 mm[Hg] [facility] Heart rate 2023-09-21 19:06:00 66 /min [facility] Body height 2023-09-21 19:06:00 165.1 cm [facility] Body weight 2023-09-21 19:06:00 57.335 kg [facility] BMI 2023-09-21 19:06:00 21.03 kg/m2 [facility] Oxygen saturation in Arterial blood by Pulse oximetry 2023-09-21 19:06:00 99 /min [place] [facility] Systolic blood pressure 2023-09-20 19:35:00 136 mm[Hg] [facility] Diastolic blood pressure 2023-09-20 19:35:00 69 mm[Hg] [facility] Heart rate 2023-09-20 19:35:00 61 /min [facility] Body height 2023-09-20 19:35:00 165.1 cm [facility] Body weight 2023-09-20 19:35:00 57.289 kg [facility] BMI 2023-09-20 19:35:00 21.02 kg/m2 [facility] Oxygen saturation in Arterial blood by Pulse oximetry 2023-09-20 19:35:00 99 /min [place] [facility] Systolic blood pressure 2023-05-17 16:18:00 161 mm[Hg] [facility] Diastolic blood pressure 2023-05-17 16:18:00 73 mm[Hg] [facility] Heart rate 2023-05-17 16:18:00 76 /min [facility] Body height 2023-05-17 16:18:00 165.1 cm [facility] Body weight 2023-05-17 16:18:00 54.658 kg [facility] BMI 2023-05-17 16:18:00 20.05 kg/m2 [facility] Oxygen saturation in Arterial blood by Pulse oximetry 2023-05-17 16:18:00 99 /min [facility] Systolic blood pressure 2023-04-20 19:29:00 132 mm[Hg] [facility] Diastolic blood pressure 2023-04-20 19:29:00 66 mm[Hg] [facility] Heart rate 2023-04-20 19:29:00 64 /min [facility] Respiratory rate 2023-04-20 19:29:00 18 /min [facility] Body height 2023-04-20 19:29:00 165.1 cm [facility] Body weight 2023-04-20 19:29:00 55.883 kg [facility] BMI 2023-04-20 19:29:00 20.50 kg/m2 [facility] Oxygen saturation in Arterial blood by Pulse oximetry 2023-04-20 19:29:00 99 /min [facility] Systolic blood pressure 2023-03-10 18:43:00 144 mm[Hg] [facility] Diastolic blood pressure 2023-03-10 18:43:00 53 mm[Hg] [facility] Heart rate 2023-03-10 18:43:00 60 /min [facility] Respiratory rate 2023-03-10 18:43:00 18 /min [facility] Body height 2023-03-10 18:43:00 [facility] 2023-03-10 18:43:00 56.518 kg [facility] BMI 2023-03-10 18:43:00 20.73 kg/m2 [facility] Oxygen saturation in Arterial blood by Pulse oximetry 2023-03-10 18:43:00 99 /min [facility] Systolic blood pressure 2023-02-24 18:53:00 165 mm[Hg] [facility] Diastolic blood pressure 2023-02-24 18:53:00 63 mm[Hg] [facility] Heart rate 2023-02-24 18:52:00 58 /min [facility] Body temperature 2023-02-24 18:52:00 37.33 [facility] Body height 2023-02-24 18:52:00 165.1 cm [facility] Body weight 2023-02-24 18:52:00 55.339 kg Univ [facility] BMI 2023-02-24 18:52:00 20.30 kg/m2 [facility] Systolic blood pressure 2023-01-05 14:04:00 183 mm[Hg] [facility] Diastolic blood pressure 2023-01-05 14:04:00 76 mm[Hg] [facility] Heart rate 2023-01-05 14:03:00 61 /min Unive [facility] Body temperature 2023-01-05 14:03:00 36.67 [facility] Body height 2023-01-05 14:03:00 165.1 cm [facility] Body weight 2023-01-05 14:03:00 54.432 kg [facility] BMI 2023-01-05 14:03:00 19.97 kg/m2 [facility] Oxygen saturation in Arterial blood by Pulse oximetry 2023-01-05 14:03:00 99 /min [facility] Systolic blood pressure 2022-12-24 13:18:00 180 mm[Hg] [facility] Diastolic blood pressure 2022-12-24 13:18:00 74 mm[Hg] [facility] Heart rate 2022-12-24 13:18:00 71 /min Un[facility] Body height 2022-12-24 13:09:00 162.6 cm [facility] Body weight 2022-12-24 13:09:00 58.06 kg [facility] BMI 2022-12-24 13:09:00 21.97 kg/m2 [facility] Oxygen saturation in Arterial blood by Pulse oximetry 2022-12-24 13:09:00 97 /min [facility] Systolic blood pressure 2022-12-16 18:07:00 179 mm[Hg] University o [facility] Diastolic blood pressure 2022-12-16 18:07:00 82 mm[Hg] [facility] Heart rate 2022-12-16 18:07:00 64 /min [facility] Body weight 2022-12-16 18:07:00 56.246 kg [facility] BMI 2022-12-16 18:07:00 20.63 kg/m2 Univ [facility] Oxygen saturation in Arterial blood by Pulse oximetry 2022-12-16 18:07:00 97 /min [facility] Systolic blood pressure 2022-11-25 18:19:00 157 mm[Hg] [facility] Diastolic blood pressure 2022-11-25 18:19:00 73 mm[Hg] [facility] Heart rate 2022-11-25 18:18:00 61 /min [facility] Body height 2022-11-25 18:18:00 165.1 cm [facility] Body weight 2022-11-25 18:18:00 57.924 kg [facility] BMI 2022-11-25 18:18:00 21.25 kg/m2 [facility] Oxygen saturation in Arterial blood by Pulse oximetry 2022-11-25 18:18:00 98 /min [facility] Systolic blood pressure 2022-10-25 20:12:00 166 mm[Hg] [facility] Diastolic blood pressure 2022-10-25 20:12:00 71 mm[Hg] [facility] Heart rate 2022-10-25 19:55:00 63 /min [facility] Body height 2022-10-25 19:55:00 165.1 cm [facility] Body weight 2022-10-25 19:55:00 58.469 kg [facility] BMI 2022-10-25 19:55:00 21.45 kg/m2 [facility] Oxygen saturation in Arterial blood by Pulse oximetry 2022-10-25 19:55:00 97 /min [facility] Systolic blood pressure 2022-09-22 19:13:00 188 mm[Hg] [facility] Diastolic blood pressure 2022-09-22 19:13:00 79 mm[Hg] [facility] Heart rate 2022-09-22 19:12:00 71 /min [facility] Body height 2022-09-22 19:12:00 165.1 cm [facility] Body weight 2022-09-22 19:12:00 59.33 kg [facility] BMI 2022-09-22 19:12:00 21.77 kg/m2 [facility] Oxygen saturation in Arterial blood by Pulse oximetry 2022-09-22 19:12:00 98 /min [facility] Systolic blood pressure 2022-06-04 20:17:00 156 mm[Hg] [facility] Diastolic blood pressure 2022-06-04 20:17:00 81 mm[Hg] [facility] Heart rate 2022-06-04 20:09:00 69 /min [facility] Body weight 2022-06-04 20:09:00 60.51 kg [facility] BMI 2022-06-04 20:09:00 22.20 kg/m2 [facility] Oxygen saturation in Arterial blood by Pulse oximetry 2022-06-04 20:09:00 95 /min [facility] Procedures Procedure Date / Time Performed Performing Clinician Source CT ABDOMEN PELVIS W CONTRAST 2023-10-05 21:41:00 Wilfred Arango [facility] HB CREATININE SERUM/BLOOD FOR IMAGING 2023-10-05 21:25:00 Wilfred Arango [facility] POCT HEMOGLOBIN A1C TEST 2023-09-20 19:37:00 Chano Aparicio jaret [facility] PHYSICIAN CERTIFICATION STATEMENT 2023-04-18 05:01:00 Doctor Unassigned, [place] [facility] - OTHER 2023-03-06 05:01:00 Doctor U petersigned, [place] [facility] - OTHER 2023-02-10 05:01:00 Doctor U nassigned, [place] [facility] - OTHER 2023-01-27 05:01:00 Doctor U petersigned, [place] [facility] EXTERNAL PROVIDER RECORDS 2023-01-18 05:01:00 Do ctor Unassigned, [place] [facility] EXTERNAL PROVIDER RECORDS 2023-01-05 05:01:00 Do ctor Unassigned, [place] [facility] CONSENT/REFUSAL FOR DIAGNOSIS AND TREATMENT 2022-11-25 17:42:39 Doctor Unassigned, [place] [facility] INSURANCE CORRESPONDENCE 2022-08-09 06:01:00 Doc tor Unassigned, [place] [facility] MEDICAL RELEASE/CLEARANCE FORMS 2022-06-18 05:01:00 Doctor Unassigned, [place] [facility] POCT HEMOGLOBIN A1C TEST 2022-06-04 20:20:00 Jamie Roger [facility] Encounters Start Date/Time End Date/Time Encounter Type Admission Type Attending [facility] Facility Care Department Encounter ID Source 2021-08-02 04:31:18 Outpatient JAI GRAJEDA [facility] [id number] [facility] 2021-08-01 18:59:03 Emergency [facility] [id number] [facility] 2024-01-20 13:00:00 2024-01-20 13:00:00 Outpatient STEVEN HERNANDEZ [facility] [id number] [facility] 2023-11-14 13:00:00 2023-11-14 15:03:56 Outpatient ROSIO TAYLOR [facility] [id number] [facility] 2023-11-14 13:00:00 2023-11-14 15:03:56 Office Visit [facility] 1.840.114 350.1.13.10 4.2.7.2.686 [id number] [id number] [facility] 2023-10-05 15:02:41 2023-10-05 23:59:00 Hospital Encounter Wilfred Arango [facility] 1.840.114 350.1.13.10 4.2.7.2.686 [id number] [facility] 2023-10-05 14:15:00 2023-10-05 14:15:00 Office Visit Wilfred [facility] 1..114 350.1.13.10 4.2.7.2.686 [id number] [facility] 2023-10-05 14:15:00 2023-10-05 14:13:50 Outpatient R WILFRED ARANGO [facility] [id number] [facility] 2023-09-27 00:00:00 2023-09-27 00:00:00 Letter (Out) Ift[facility] NAL [facility] 1..114 350.1.13.10 4.2.7.2.686 [id number] [facility] 2023-09-23 00:00:00 2023-09-23 00:00:00 Patient Secure Msg Doctor Unassigned, [place] [facility] 1..114 350.1.13.10 4.2.7.2.686 [id number] [id number] [facility] 2023-09-21 13:15:00 2023-09-21 13:30:00 Office Visit Wilfred Arango [facility] 1.2.114 350.1.13.10 4.2.7.2.686 [id number] [facility] 2023-09-21 13:15:00 2023-09-21 13:15:00 Outpatient R WILFRED ARANGO [facility] [id number] [facility] 2023-09-20 13:30:00 2023-09-20 14:18:45 Outpatient R SURAJ [facility] [id number] [facility] 2023-09-20 13:30:00 2023-09-20 14:18:45 [facility] 1.840.114 350.1.13.10 4.2.7.2.686 [id number] [facility] 2023-09-07 00:00:00 2023-09-07 00:00:00 [facility] 1.84.114 350.1.13.10 4.2.7.2.686 [id number] [facility] 2023-08-16 00:00:00 2023-08-16 00:00:00 [facility] 1.84.114 350.1.13.10 4.2.7.2.686 [id number] 044 [id number] [facility] 2023-07-14 00:00:00 2023-07-14 00:00:00 [facility] 1.84.114 350.1.13.10 4.2.7.2.686 [id number] [facility] 2023-06-18 00:00:00 2023-06-18 00:00:00 [facility] 1.2.840.114 350.1.13.10 4.2.7.2.686 [id number] 044 [id number] [facility] 2023-05-17 11:00:00 2023-05-17 12:21:30 Outpatient R SURAJ [facility] [id number] [facility] 2023-05-17 11:00:00 2023-05-17 12:21:30 Office Visit Suraj [facility] [place] 1.2.840.114 350.1.13.10 4.2.7.2.686 [id number] [facility] 2023-05-17 00:00:00 2023-05-17 00:00:00 Telephone Suraj [facility] 1.2840.114 350.1.13.10 4.2.7.2.686 [id number] [facility] 2023-05-13 00:00:00 2023-05-13 00:00:00 Telephone [facility] 1.2840.114 350.1.13.10 4.2.7.2.686 [id number] 044 [id number] [facility] 2023-04-30 00:00:00 2023-04-30 00:00:00 Patient Secure Msg Doctor Unassigned, [place] [facility] 1.2840.114 350.1.13.10 4.2.7.2.686 [id number] [facility] 2023-04-25 00:00:00 2023-04-25 00:00:00 Telephone [facility] 1.2840.114 350.1.13.10 4.2.7.2.686 [id number] [facility] 2023-04-20 14:30:00 2023-04-20 16:45:51 Outpatient R ALIREZA ARANGOONY [facility] [id number] [facility] 2023-04-20 14:30:00 2023-04-20 16:45:51 [facility] 1.2840.114 350.1.13.10 4.2.7.2.686 [id number] 044 [id number] [facility] 2023-04-18 00:00:00 2023-04-18 00:00:00 Orders Only Doctor Unassigned, [place] [facility] 1.2840.114 350.1.13.10 4.2.7.2.686 [id number] [facility] 2023-04-14 00:00:00 2023-04-14 00:00:00 Telephone [facility] 1.2840.114 350.1.13.10 4.2.7.2.686 [id number] 044 [id number] [facility] 2023-04-11 00:00:00 2023-04-11 00:00:00 Refill [facility] 1.2840.114 350.1.13.10 4.2.7.2.686 [id number] [facility] 2023-03-15 13:00:00 2023-03-15 13:15:00 Insurance Associate Visit Lab, Ang - Db [facility] 1.2840.114 350.1.13.10 4.2.7.2.686 [id number] [facility] 2023-03-15 13:00:00 2023-03-15 13:00:00 Outpatient R ARANGO WILFRED [facility] [id number] [facility] 2023-03-14 00:00:00 2023-03-14 00:00:00 [facility] 1..114 350.1.13.10 4.2.7.2.686 [id number] 044 [id number] [facility] 2023-03-11 09:45:00 2023-03-11 10:00:00 Insurance Associate Visit Lab, Fernando oCto [facility] 1..114 350.1.13.10 4.2.7.2.686 [id number] [facility] 2023-03-11 09:45:00 2023-03-11 09:45:00 Outpatient R WILFRED ARANGO [facility] [id number] [facility] 2023-03-10 14:00:00 2023-03-10 14:15:00 Office Visit Richard Critical access hospital?[facility] 1.114 350.1.13.10 4.2.7.2.686 [id number] [facility] 2023-03-10 14:00:00 2023-03-10 14:00:00 Outpatient R WILFRED ARANGO [facility] [id number] [facility] 2023-03-06 00:00:00 2023-03-06 00:00:00 Orders Only Doctor Unassigned, [place] [facility] 1..114 350.1.13.10 4.2.7.2.686 [id number] [facility] 2023-03-04 00:00:00 2023-03-04 00:00:00 Refill [facility] 1..114 350.1.13.10 4.2.7.2.686 [id number] 044 [id number] [facility] 2023-02-24 14:15:00 2023-02-24 14:45:00 Office Visit Richard [facility] 1.2.840.114 350.1.13.10 4.2.7.2.686 [id number] [id number] [facility] 2023-02-24 14:15:00 2023-02-24 14:15:00 Outpatient R WILFRED ARANGO [facility] [id number] [facility] 2023-02-12 00:00:00 2023-02-12 00:00:00 Telephone Richard Critical access hospital?[facility] 1..840.114 350.1.13.10 4.2.7.2.686 [id number] [facility] 2023-02-10 00:00:00 2023-02-10 00:00:00 Orders Only Doctor Unassigned, [place] [facility] 1.20.114 350.1.13.10 4.2.7.2.686 [id number] [facility] 2023-02-03 00:00:00 2023-02-03 00:00:00 Refill Richard Critical access hospital?[facility] 1.284.114 350.1.13.10 4.2.7.2.686 [id number] 044 [id number] [facility] 2023-01-27 00:00:00 2023-01-27 00:00:00 Orders Only Doctor Unassigned, [place] [facility] 1.2840.114 350.1.13.10 4.2.7.2.686 [id number] [facility] 2023-01-18 00:00:00 2023-01-18 00:00:00 Orders Only Doctor Unassigned, [place] [facility] 1.2840.114 350.1.13.10 4.2.7.2.686 [id number] [facility] 2023-01-05 09:00:00 2023-01-05 09:30:00 Office Visit [facility]fred [facility] 1.2840.114 350.1.13.10 4.2.7.2.686 [id number] [facility] 2023-01-05 09:00:00 2023-01-05 09:00:00 Outpatient R ARANGO WILFRED [facility] [id number] [facility] 2023-01-05 00:00:00 2023-01-05 00:00:00 Orders Only Doctor Unassigned, [place] [facility] 1.2840.114 350.1.13.10 4.2.7.2.686 [id number] [facility] 2023-01-05 00:00:00 2023-01-05 00:00:00 Telephone [facility] 1.2840.114 350.1.13.10 4.2.7.2.686 [id number] 044 [id number] [facility] 2023-01-03 00:00:00 2023-01-03 00:00:00 [facility] 1.2840.114 350.1.13.10 4.2.7.2.686 [id number] 044 [id number] [facility] 2022-12-31 00:00:00 2022-12-31 00:00:00 Telephone [facility] 1.2840.114 350.1.13.10 4.2.7.2.686 [id number] 044 [id number] [facility] 2022-12-29 00:00:00 2022-12-29 00:00:00 Telephone [facility] 1.84114 350.1.13.10 4.2.7.2.686 [id number] [facility] 2022-12-24 08:15:00 2022-12-24 11:00:14 Outpatient R LEEROY ALBARRAN [facility] [id number] [facility] 2022-12-24 08:15:00 2022-12-24 11:00:14 Office Visit Leer[facility]bar[facility] 1.84.114 350.1.13.10 4.2.7.2.686 [id number] [facility] 2022-12-16 13:30:00 2022-12-16 14:38:40 Outpatient R WILFRED ARANGO [facility] [id number] [facility] 2022-12-16 13:30:00 2022-12-16 14:38:40 [facility] 1.84114 350.1.13.10 4.2.7.2.686 [id number] 044 [id number] [facility] 2022-12-16 00:00:00 2022-12-16 00:00:00 Refill [facility] 1.84114 350.1.13.10 4.2.7.2.686 [id number] 044 [id number] [facility] 2022-11-25 12:15:00 2022-11-25 12:30:00 Office Visit [facility] 1..114 350.1.13.10 4.2.7.2.686 [id number] 044 [id number] [facility] 2022-11-25 12:15:00 2022-11-25 12:15:00 Outpatient R ARANGOWILFRED [facility] [id number] [facility] 2022-11-25 00:00:00 2022-11-25 00:00:00 Orders Only Doctor Unassigned, [place] [facility] 1.840.114 350.1.13.10 4.2.7.2.686 [id number] [id number] [facility] 2022-10-25 14:15:00 2022-10-25 14:30:00 Office Visit [facility] 1..840.114 350.1.13.10 4.2.7.2.686 [id number] 044 [id number] [facility] 2022-10-25 14:15:00 2022-10-25 14:15:00 Outpatient Canelo ARANGOWILFRED ROACH [facility] [id number] [facility] 2022-10-25 00:00:00 2022-10-25 00:00:00 Telephone Arango [facility] 1..840.114 350.1.13.10 4.2.7.2.686 [id number] 044 [id number] [facility] 2022-09-29 00:00:00 2022-09-29 00:00:00 Refill Richard Critical access hospital?[facility] 1..840.114 350.1.13.10 4.2.7.2.686 [id number] [facility] 2022-09-22 14:12:09 2022-09-22 23:59:00 Outpatient Canelo WILFRED ARANGO [facility] [id number] [facility] 2022-09-22 13:45:00 2022-09-22 14:04:05 Insurance Associate Visit Lab, Fernando - Nnamdi Wilfred Arango [facility] 1.20.114 350.1.13.10 4.2.7.2.686 [id number] [facility] 2022-09-22 13:15:00 2022-09-22 13:30:00 Office Visit [facility] 1.20.114 350.1.13.10 4.2.7.2.686 [id number] 044 [id number] [facility] 2022-09-17 00:00:00 2022-09-17 00:00:00 Patient Secure Msg Doctor Unassigned, [place] [facility] 1.114 350.1.13.10 4.2.7.2.686 [id number] [facility] 2022-08-20 00:00:00 2022-08-20 00:00:00 Refill Wilfred [facility] 1..114 350.1.13.10 4.2.7.2.686 [id number] [id number] [facility] 2022-08-09 00:00:00 2022-08-09 00:00:00 Orders Only Doctor Unassigned, [place] [facility] 1.20.114 350.1.13.10 4.2.7.2.686 [id number] [facility] 2022-07-06 00:00:00 2022-07-06 00:00:00 Refill [facility] 1.2.114 350.1.13.10 4.2.7.2.686 [id number] 044 [id number] [facility] 2022-06-24 00:00:00 2022-06-24 00:00:00 Telephone Jamie Roger [facility] [place] 1.2.840.114 350.1.13.10 4.2.7.2.686 [id number] [facility] 2022-06-21 00:00:00 2022-06-21 00:00:00 Telephone Jamie Roger [facility] [place] 1.2.840.114 350.1.13.10 4.2.7.2.686 [id number] [facility] 2022-06-18 00:00:00 2022-06-18 00:00:00 Orders Only Doctor Unassigned, [place] [facility] 1.2.840.114 350.1.13.10 4.2.7.2.686 [id number] [facility] 2022-06-15 00:00:00 2022-06-15 00:00:00 Telephone Jamie Roger [facility] [place] 1.2.840.114 350.1.13.10 4.2.7.2.686 [id number] [facility] 2022-06-04 15:30:00 2022-06-04 15:58:45 Office Visit Jamie Roger [facility] [place] 1.2.840.114 350.1.13.10 4.2.7.2.686 [id number] [facility] 2022-06-04 15:30:00 2022-06-04 15:58:45 Outpatient R JAMIE ROGER [facility] [id number] [facility] 2022-06-04 15:30:00 2022-06-04 15:30:00 Outpatient R JAMIE ROGER [facility] [id number] [facility] 2022-05-14 00:00:00 2022-05-14 00:00:00 [facility] 1.84.114 350.1.13.10 [id number] [id number] [facility] 2022-03-02 00:00:00 2022-03-02 00:00:00 [facility] 1.84.114 350.1.13.10 [id number] [id number] [facility] 2022-02-25 12:30:00 2022-02-25 12:45:00 [facility] 1.84.114 350.1.13.10 [id number] [id number] [facility] 2022-02-25 12:30:00 2022-02-25 12:30:00 Outpatient R WILFRED ARANGO [facility] [id number] [facility] 2022-02-17 00:00:00 2022-02-17 00:00:00 Refill [facility] [place] 1.84.114 350.1.13.10 [id number] [id number] [place] [facility] 20[facility]-01-26 14:30:00 2022-01-26 14:56:48 Outpatient R MARCIA CHOW [facility] [id number] [facility] 2022-01-26 14:30:00 2022-01-26 14:56:48 [facility] [place] 1.84.114 350.1.13.10 4.2.7.2.686 [id number] [facility] 2022-01-15 00:00:00 2022-01-15 00:00:00 Francisco Arango [facility] OFFICE BUILDING ONE 1.114 350.1.13.10 4.2.7.2.686 [id number] [id number] [facility] 2022-01-15 00:00:00 2022-01-15 00:00:00 Francisco rAango [facility] OFFICE BUILDING ONE 1.114 350.1.13.10 4.2.7.2.686 [id number] 044 [id number] [facility] 2022-01-15 00:00:00 2022-01-15 00:00:00 Francisco Arango [facility] OFFICE BUILDING ONE 1.114 350.1.13.10 4.2.7.2.686 [id number] 044 [id number] [facility] 2022-01-07 00:00:00 2022-01-07 00:00:00 [facility] [place] 1.84.114 350.1.13.10 4.2.7.2.686 [id number] 044 [id number] [facility] 2021-11-30 13:00:00 2021-11-30 13:00:00 Outpatient R WILFRED ARANGO [facility] [id number] [facility] 2021-10-16 13:30:00 2021-10-16 14:32:38 Outpatient JAMIE ADAMS [facility] [id number] [facility] 2021-10-16 13:30:00 2021-10-16 14:32:38 Office Visit [facility]cia Chow [facility] 1.2.840.114 350.1.13.10 4.2.7.2.686 [id number] [facility] 2021-10-16 00:00:00 2021-10-16 00:00:00 Orders Only Doctor Unassigned, [place] [facility] 1.2.840.114 350.1.13.10 4.2.7.2.686 [id number] [id number] [facility] 2021-10-12 00:00:00 2021-10-12 00:00:00 Refill Richard [facility] OFFICE BUILDING ONE 1.840.114 350.1.13.10 4.2.7.2.686 [id number] 044 [id number] [facility] 2021-10-12 00:00:00 2021-10-12 00:00:00 Refill Dora Roger [facility] 1.840.114 350.1.13.10 4.2.7.2.686 [id number] [facility] 2021-09-08 00:00:00 2021-09-08 00:00:00 Refill Arango [facility] OFFICE BUILDING ONE 1.840.114 350.1.13.10 4.2.7.2.686 [id number] 044 [id number] [facility] 2021-08-07 00:00:00 2021-08-07 00:00:00 Refill Richard [facility] OFFICE BUILDING ONE .840.114 350.1.13.10 4.2.7.2.686 [id number] 044 [id number] [facility] 2021-07-04 00:00:00 2021-07-04 00:00:00 Refill Richard [facility] Office Building One 1.840.114 350.1.13.10 4.2.7.2.686 [id number] 044 [id number] [facility] 2021-07-01 00:00:00 2021-07-01 00:00:00 Refill Arango [facility] Office Building One 1.114 350.1.13.10 4.2.7.2.686 [id number] 044 [id number] [facility] 2021-04-30 14:15:00 2021-04-30 14:15:00 Outpatient WILFRED PERRY [facility] [id number] [facility] 2021-04-30 13:52:17 2021-04-30 14:07:17 Office Visit Richard Wilfred [facility] Office Building One 1..114 350.1.13.10 4.2.7.2.686 [id number] 044 [id number] [facility] 2021-04-28 00:00:00 2021-04-28 00:00:00 Refmargo Sunshineers [facility] Office Building One 1..114 350.1.13.10 4.2.7.2.686 [id number] 044 [id number] [facility] 2021-03-31 00:00:00 2021-03-31 00:00:[address] [facility] Office Building One 1..114 350.1.13.10 4.2.7.2.686 [id number] 044 [id number] [facility] 2021-03-16 00:00:00 2021-03-16 00:00:00 Refmargo Arango [facility] Office Building One ..114 350.1.13.10 4.2.7.2.686 [id number] [facility] 2021-02-23 13:15:00 2021-02-23 13:15:00 Outpatient R WILFRED ARANGO [facility] [id number] [facility] 2021-02-11 00:00:00 2021-02-11 00:00:00 Refill Richard [facility] Office Building One 1.0.114 350.1.13.10 4.2.7.2.686 [id number] 044 [id number] [facility] 2021-01-29 00:00:00 2021-01-29 00:00:[address] [facility] Office Building One 1.0.114 350.1.13.10 4.2.7.2.686 [id number] 044 [id number] [facility] 2021-01-23 00:00:00 2021-01-23 00:00:00 Orders Only Doctor Unassigned, [place] [facility] 1.0.114 350.1.13.10 4.2.7.2.686 [id number] [id number] [facility] 2021-01-21 00:00:00 2021-01-21 00:00:00 Refmargo Arango [facility] Office Building One 1.840.114 350.1.13.10 4.2.7.2.686 [id number] 044 [id number] [facility] 2021-01-21 00:00:00 2021-01-21 00:00:00 Telephone Richard [facility] Office Building One 1.840.114 350.1.13.10 4.2.7.2.686 [id number] 044 [id number] [facility] 2021-01-21 00:00:00 2021-01-21 00:00:00 Orders Only Doctor Unassigned, [place] [facility] 1.840.114 350.1.13.10 4.2.7.2.686 [id number] [id number] [facility] 2021-01-19 15:00:00 2021-01-19 15:00:00 Outpatient PERLA YEH HOWARD [facility] [id number] [facility] 2021-01-15 00:00:00 2021-01-15 00:00:00 Orders Only Doctor Unassigned, [place] [facility] 1.2840.114 350.1.13.10 4.2.7.2.686 [id number] [id number] [facility] 2021-01-13 13:40:00 2021-01-13 13:40:00 Outpatient PERLA YEH HOWARD [facility] [id number] [facility] 2021-01-06 00:00:00 2021-01-06 00:00:00 Orders Only Doctor Unassigned, [place] [facility] 1.2840.114 350.1.13.10 4.2.7.2.686 [id number] [id number] [facility] 2020-12-26 00:00:00 2020-12-26 00:00:00 Orders Only Doctor Unassigned, [place] [facility] 1.2.840.114 350.1.13.10 4.2.7.2.686 [id number] [id number] [facility] 2020-12-17 08:10:00 2020-12-17 10:43:00 Hospital Encounter Jai Grajeda [facility] 1.2840.114 350.1.13.10 4.2.7.2.686 [id number] [facility] 2020-12-16 13:23:54 2020-12-16 13:38:54 Laboratory Only Only, Adc Test Jai Grajeda [facility] 1.2840.114 350.1.13.10 4.2.7.2.686 [id number] [facility] 2020-12-16 13:00:00 2020-12-16 13:00:00 Outpatient R JAI GRAJEDA [facility] [id number] [facility] 2020-12-16 00:00:00 2020-12-16 00:00:00 Orders Only Doctor Unassigned, [place] [facility] 1.840.114 350.1.13.10 4.2.7.2.686 [id number] [id number] [facility] 2020-12-16 00:00:00 2020-12-16 00:00:00 Refill Richard [facility] Office Building One 1.840.114 350.1.13.10 4.2.7.2.686 [id number] 044 [id number] [facility] 2020-12-10 00:00:00 2020-12-10 00:00:00 Patient Outreach Damien Quintanilla [facility] 1.840.114 350.1.13.10 4.2.7.2.686 [id number] [facility] 2020-12-03 00:00:00 2020-12-03 00:00:00 Orders Only Doctor Unassigned, [place] [facility] 1.840.114 350.1.13.10 4.2.7.2.686 [id number] [id number] [facility] 2020-12-02 00:00:00 2020-12-02 00:00:00 Telephone Richard [facility] Office Building One .0.114 350.1.13.10 4.2.7.2.686 [id number] 044 [id number] [facility] 2020-11-27 12:00:00 2020-11-27 12:00:00 Outpatient R WILFRED ARANGO [facility] [id number] [facility] 2020-11-27 00:00:00 2020-11-27 00:00:00 Outpatient [facility] [id number] [facility] 2020-11-27 00:00:00 2020-11-27 00:00:00 [facility] 1.0.114 350.1.13.10 4.2.7.2.686 [id number] 044 [id number] [facility] 2020-11-27 00:00:00 2020-11-27 00:00:00 Orders Only Doctor Unassigned, [place] [facility] 1.840.114 350.1.13.10 4.2.7.2.686 [id number] [id number] [facility] 2020-11-26 00:00:00 2020-11-26 00:00:00 Telephone Richard [facility] Office Building One 1.0.114 350.1.13.10 4.2.7.2.686 [id number] [facility] 2020-11-24 00:00:00 2020-11-24 00:00:00 Telephone Richard [facility] Office Building One 1.0.114 350.1.13.10 4.2.7.2.686 [id number] 044 [id number] [facility] 2020-11-23 00:00:00 2020-11-23 00:00:00 Orders Only Doctor Unassigned, [place] [facility] 1.840.114 350.1.13.10 4.2.7.2.686 [id number] [id number] [facility] 2020-11-21 11:56:32 2020-11-21 12:39:07 Office Visit Richard [facility] Office Building One 1.0.114 350.1.13.10 4.2.7.2.686 [id number] 044 [id number] [facility] 2020-11-21 12:30:00 2020-11-21 12:30:00 Outpatient R WILFRED ARANGO [facility] [id number] [facility] 2020-11-21 00:00:00 2020-11-21 00:00:00 Telephone Richard [facility] Office Building One 1..840.114 350.1.13.10 4.2.7.2.686 [id number] 044 [id number] [facility] 2020-11-21 00:00:00 2020-11-21 00:00:00 Orders Only Doctor Unassigned, [place] [facility] 1..840.114 350.1.13.10 4.2.7.2.686 [id number] [id number] [facility] 2020-11-20 14:45:00 2020-11-20 14:45:00 Outpatient WILFRED PERRY [facility] [id number] [facility] 2020-11-17 14:00:00 2020-11-17 14:00:00 Outpatient WILFRED PERRY [facility] [id number] [facility] 2020-11-13 12:00:00 2020-11-13 12:00:00 Outpatient WILFRED PERRY [facility] [id number] [facility] 2020-10-30 12:32:25 2020-10-30 12:47:25 Office Visit Wilfred Arango [facility] Office Building One ..840.114 350.1.13.10 4.2.7.2.686 [id number] 044 [id number] [facility] 2020-10-30 12:30:00 2020-10-30 12:30:00 Outpatient WILFRED PERRY [facility] [id number] [facility] 2020-10-30 00:00:00 2020-10-30 00:00:00 Letter (Out) Wilfred Arango [facility] Office Building One 1.2840.114 350.1.13.10 4.2.7.2.686 [id number] [id number] [facility] 2020-10-27 00:00:00 2020-10-27 00:00:00 Transition of Care Meseret Oden 1.2.840.114 350.1.13.10 4.2.7.2.686 [id number] [facility] 2020-10-24 16:23:00 2020-10-25 16:12:00 Emergency Aidee Lees Yaman [facility] 1.2840.114 350.1.13.10 4.2.7.2.686 [id number] [facility] 2020-10-24 00:00:00 2020-10-24 00:00:00 Telephone Richard [facility] Office Building One 1.840.114 350.1.13.10 4.2.7.2.686 [id number] 044 [id number] [facility] 2020-10-23 13:17:01 2020-10-23 23:59:00 Hospital Encounter Wilfred Arango [facility] 1.2840.114 350.1.13.10 4.2.7.2.686 [id number] [facility] 2020-10-23 00:00:00 2020-10-23 00:00:00 Outpatient R WILFRED ARANGO [facility] [id number] [facility] 2020-10-22 00:00:00 2020-10-22 00:00:00 Telephone Richard [facility] Office Building One 1.840.114 350.1.13.10 4.2.7.2.686 [id number] 044 [id number] [facility] 2020-10-21 16:00:05 2020-10-21 23:59:00 Hospital Encounter Wilfred Arango [facility] 1..114 350.1.13.10 4.2.7.2.686 [id number] [facility] 2020-10-21 00:00:00 2020-10-21 00:00:00 Outpatient R WILFRED ARANGO [facility] [id number] [facility] 2020-10-21 00:00:00 2020-10-21 00:00:00 [facility] .114 350.1.13.10 4.2.7.2.686 [id number] 044 [id number] [facility] 2020-10-19 00:00:00 2020-10-19 00:00:[address] [facility] 1.114 350.1.13.10 4.2.7.2.686 [id number] [id number] [facility] 2020-10-17 11:23:19 2020-10-17 11:43:19 Insurance Associate Visit Lab, [facility] .114 350.1.13.10 4.2.7.2.686 [id number] 044 [id number] [facility] 2020-10-17 11:40:00 2020-10-17 11:40:00 Outpatient ROBERTO AVERY [facility] [id number] [facility] 2020-10-17 00:00:00 2020-10-17 00:00:00 Telephone Richard [facility] Office Building One .114 350.1.13.10 4.2.7.2.686 [id number] 044 [id number] [facility] 2020-10-17 00:00:00 2020-10-17 00:00:[address] [facility] Office Building One 1.114 350.1.13.10 4.2.7.2.686 [id number] 044 [id number] [facility] 2020-10-16 14:36:44 2020-10-16 15:13:20 Office Visit Wilfred Arango [facility] Office Building One 1.114 350.1.13.10 4.2.7.2.686 [id number] 044 [id number] [facility] 2020-10-16 14:45:00 2020-10-16 14:45:00 Outpatient R WILFRED ARANGO [facility] [id number] [facility] 2020-09-17 00:00:00 2020-09-17 00:00:00 Refill Richard [facility] Office Building One 1.114 350.1.13.10 4.2.7.2.686 [id number] 044 [id number] [facility] 2020-09-10 15:00:00 2020-09-10 15:00:00 Outpatient R WILFRED ARANGO [facility] [id number] [facility] 2020-09-05 00:00:00 2020-09-05 00:00:[address] [facility] Office Building One .114 350.1.13.10 4.2.7.2.686 [id number] [facility] 2020-08-15 16:03:55 2020-08-15 16:18:55 Insurance Associate Visit Pojuan, Adc Lab Main Jamie Roger [facility] Building 1.114 350.1.13.10 4.2.7.2.686 [id number] [facility] 2020-08-15 15:45:00 2020-08-15 15:45:00 Outpatient R JAMIE ROGER [facility] [id number] [facility] 2020-08-12 00:00:00 2020-08-12 00:00:00 Refill Richard [facility] Office Building One 1.114 350.1.13.10 4.2.7.2.686 [id number] 044 [id number] [facility] 2020-08-01 14:28:15 2020-08-01 16:57:50 Office Visit Jamie Roger [facility] Building 1.114 350.1.13.10 4.2.7.2.686 [id number] [facility] 2020-08-01 14:30:00 2020-08-01 14:30:00 Outpatient R JAMIE ROGER [facility] [id number] [facility] 2020-08-01 00:00:00 2020-08-01 00:00:00 Orders Only Doctor Unassigned, [place] [facility] 1.114 350.1.13.10 4.2.7.2.686 [id number] [id number] [facility] 2020-05-23 00:00:00 2020-05-23 00:00:00 Refill Richard [facility] Office Building One .114 350.1.13.10 4.2.7.2.686 [id number] 044 [id number] [facility] 2020-05-11 00:00:00 2020-05-11 00:00:00 Refmargo Arango [facility] Office Building One 1.114 350.1.13.10 4.2.7.2.686 [id number] 044 [id number] [facility] 2020-04-17 00:00:00 2020-04-17 00:00:00 Telephone Wilfred Arango [facility] Building 1..114 350.1.13.10 4.2.7.2.686 [id number] 044 [id number] [facility] 2020-04-16 14:15:00 2020-04-16 23:59:00 Hospital Encounter Wilfred Arango [facility] 1.0.114 350.1.13.10 4.2.7.2.686 [id number] [facility] 2020-04-16 13:28:41 2020-04-16 13:43:41 Office Visit Wilfred Arango [facility] Building 1..114 350.1.13.10 4.2.7.2.686 [id number] 044 [id number] [facility] 2020-04-16 13:30:00 2020-04-16 13:30:00 Outpatient R WILFRED ARANGO [facility] [id number] [facility] 2020-04-16 00:00:00 2020-04-16 00:00:00 Orders Only Doctor Unassigned, [place] [facility] 1..114 350.1.13.10 4.2.7.2.686 [id number] [facility] 2020-04-14 00:00:00 2020-04-14 00:00:00 Jamie Wright [facility] Building 1..114 350.1.13.10 4.2.7.2.686 [id number] [facility] 2020-02-19 00:00:00 2020-02-19 00:00:[address] [facility] Office Building One 1..114 350.1.13.10 4.2.7.2.686 [id number] 044 [id number] [facility] 2020-02-18 00:00:00 2020-02-18 00:00:00 Refill Jamie Roger [facility] Building 1.2.114 350.1.13.10 4.2.7.2.686 [id number] [facility] 2020-02-11 12:41:00 2020-02-11 13:11:00 Office Visit Wilfred Arango [facility] Building 1.2.114 350.1.13.10 4.2.7.2.686 [id number] 044 [id number] [facility] 2020-02-11 12:30:00 2020-02-11 12:30:00 Outpatient R RICHARD WILFRED [facility] [id number] [facility] 2020-02-11 00:00:00 2020-02-11 00:00:00 Refill Richard [facility] Office Building One 1..114 350.1.13.10 4.2.7.2.686 [id number] 044 [id number] [facility] 2020-02-05 00:00:00 2020-02-05 00:00:[address] [facility] Office Building One 1.2.114 350.1.13.10 4.2.7.2.686 [id number] 044 [id number] [facility] 2020-01-30 15:00:00 2020-01-30 15:00:00 Outpatient ROSIO TAYLOR [facility] [id number] [facility] 2020-01-30 14:14:49 2020-01-30 14:29:49 Telemedici ne Visit Rosio Williamson [facility] Building 1.2.114 350.1.13.10 4.2.7.2.686 [id number] [facility] 2020-01-25 09:39:29 2020-01-25 14:29:43 [facility]medici ne [facility] 1.2.840.114 350.1.13.10 4.2.7.2.686 [id number] [facility] 2020-01-25 13:30:00 2020-01-25 13:30:00 Outpatient R JAMIE ROGER [facility] [id number] [facility] 2020-01-03 00:00:00 2020-01-03 00:00:00 [facility] 1.2.840.114 350.1.13.10 4.2.7.2.686 [id number] [facility] 2019-12-31 00:00:00 2019-12-31 00:00:00 Refill Jamie Roger [facility] nal Building 1.2.840.114 350.1.13.10 4.2.7.2.686 [id number] [facility] 2019-11-13 00:00:00 2019-11-13 00:00:[address] [facility] Office Building One 1..840.114 350.1.13.10 4.2.7.2.686 [id number] 044 [id number] [facility] 2019-05-23 00:00:00 2019-05-23 00:00:00 Refmargo Arango [facility] Office Building One 1.2.840.114 350.1.13.10 4.2.7.2.686 [id number] [facility] 2019-05-17 00:00:00 2019-05-17 00:00:00 Jamie Navarro [facility] 1.2.840.114 350.1.13.10 4.2.7.2.686 [id number] [facility] Results Test Description Test Time Test Comments Results Result Comments Source CT ABDOMEN PELVIS W CONTRAST 2023-10 22:14:[address] Abdomen and Pelvis with intravenous contrast. CLINICAL HISTORY: Peritonitis or perforation suspected. DOSE: Up-to-date CT equipment and radiation dose reduction techniques wereemployed. CTDIvol: ? 7.49 mGy. DLP: 329.59 mGy-cm. TECHNIQUE : Contiguous axial imaging from the level of the lung basesthrough the pubic symphysis were performed after the uncomplicatedadministration of nonionic contrast material. ?Coronal and sagittalreconstructions were obtained. Auto mA and/or iterative reconstruction wereused to reduce radiation dose. FINDINGS: ?Comparison has been made with previous CT studies of 10/24/2020. Lower lungs: Medium-sized hiatal hernia. Minimal fibrosis in the rightlower lung. No pleural effusion. Small pericardial effusion and mildcardiomegaly. Liver, Gallbladder and Spleen: S/P cholecystectomy. Mild generalizeddilatation of the intrahepatic as well as extrahepatic bile ducts notedwith common bile duct up to 10 to 11 mm in diameter. Pancreatic duct is notdilated. No focal enhancing lesions visualized in the liver or in thespleen. Peritoneum: ?No free air or free fluid. No lymphadenopathy. Pancreas and Adrenals: ?Unremarkable right adrenal gland. Mild left adrenalgland hypertrophy, unchanged since 2020 study. Pancreas showed spottycalcifications throughout its bed, likely secondary to recurrent chronicepisodes of pancreatitis. Kidneys and Ureters: ?No visible calculi in the renal collecting systems. No hydroureter or hydronephrosis. Subcentimeter hypodense lesion in theupper pole of the right kidney could be a small renal cyst, although it isslightly larger since 2020 study. Another subcentimeter cyst noted in thelateral cortex of the interpolar left kidney, not significantly changedsince the previous study. Mild fullness is seen in the right ureter andright renal pelvis, likely secondary to moderately distended urinarybladder. Vessels: Severe atherosclerosis and tortuous abdominal aorta and iliacarteries. Calcifications are causing possible high-grade stenosis in bothright and left renal arteries as well as at the origin of celiac artery.Less severe stenosis suspected duodenal SMA and JERROD. Retroperitoneum: No abnormal fluid or lymphadenopathy. Bowel: ?Constipation, redundant and large bowel noted. No acute findings.Diverticulosis of sigmoid and descending colon is seen without any acutechanges. Appendix is not definitely visualized, however, there are no CTsigns of acute appendicitis. Bladder and Reproductive Organs: ?Moderately distended urinary bladder. S/Physterectomy. Bones: ?Moderate lumbar levoscoliosis, generalized degenerativespondylosis, old fractures of L4, L2 vertebral bodies. No acute findings.No aggressive bone lesions. Soft tissues: Asymmetrical thickening of the right rectus muscle noted dueto rectus sheath hematoma which is approximately 8 cm long, up to 5 cminvasive and 2.5 cm in thickness. 1 cm size fat-containing right paraumbilical hernia noted without anycomplications. CONCLUSION:1. 8 x 5 x 2.5 cm acute right rectus sheath hematoma.2. S/P cholecystectomy. S/P hysterectomy. Moderately distended urinarybladder.3. Hiatal hernia and small pericardial effusion.4. Constipation. Diverticulosis of the sigmoid and descending colon notedwithout any acute changes of diverticulitis.5. Severe atherosclerosis throughout the aorta and iliac artery with focalectasia of lower abdominal aorta noted without aneurysm. Calcifications arelikely causing high-grade stenosis at the origin of celiac axis, right andleft renal arteries, less severe stenosis at the origin of SMA and JERROD. [facility] Hemoglobin A1C [id number] 19:37:00* Test Item Value Reference Range Interpretation Comme [facility] POCT HBA1C (test code = 4548-4) 10.5 % 4-6 A Lab Interpretation (test cod e = 88768-6) Abnormal [facility] Hemoglobin A1C [id number] 19:37:00* Test Item Value Reference Range Interpretation Comme [facility] [facility]BA1C (test code = 4548-4) 10.5 % 4-6 A Lab Interpretation (test cod e = 15702-4) Abnormal [facility] HEMOGLOBIN A1C [id number] 20:23:00* Test Item Value Reference Range Interpretation Comme [facility] POCT HBA1C (test code = 4548-4) 9.5 % 4-6 A Lab Interpretation (test cod e = 67390-1) [facility] [id number] 20:23:00* Test Item Value Reference Range Interpretation Comme nts POCT HBA1C (test code = 4548-4) 9.5 % 4-6 A Lab Interpretation (test cod e = 17871-2) Abnormal [facility] Notes Date/Time Note Provider Source 2023-06-20 08:19:12 5L1gD9Pjuk4tzL2deWoJ n5Kn28LKL5 3plnrnny58RIqxgDAXcA8hHKcocXxq DhS14063-53-93Z84:19:12Formatt ing of this note is different from the original.Images from the original note were not included.Last Refilled: 05/16/23Notes: [place], [place] - [address]: [id number] VisitsDate Type Provider Dept 04/20/23 Office Visit Wilfred Arango MD [facility] 03/10/23 Office Visit Wilfred Arango MD [facility] 02/24/23 Office Visit Wilfred Arango MD [facility] 01/05/23 Office Visit Wilfred Arango MD [facility] 12/16/22 Office Visit Wilfred Arango MD [facility] 11/25/22 Office Visit Wilfred Arango MD [facility] 10/25/22 Office Visit Wilfred Arango MD [facility] 09/22/22 Office Visit Wilfred Arango MD [facility] 02/25/22 Office Visit Wilfred Arango MD [facility] Showing recent visits within past 540 days with a meds authorizing provider and meeting all other requirementsFuture AppointmentsNo visits were found meeting these conditions.Showing future appointments within next 150 days with a meds authorizing provider and meeting all other requirements Name from pharmacy: HYDROCO/APAP 7.5-32 TAB MALL 7.5-325M Will file in chart as: HYDROCODONE-ACETAMINOPHEN 7.5-325 mg per tablet Sig: TAKE 1 TABLET BY MOUTH EVERY SIX HOURS NEEDED FOR PAIN important Maximum MME cannot be calculated for this prescription. Enter discrete sig details to calculate maximum MME. Disp: 120 tablet Refills: 0 Start: 06/18/2023 Earliest Fill Date: 06/18/2023 Class: eRX Non-formulary For: Acute bilateral low back pain with right-sided sciatica Last ordered: 1 month ago (05/16/2023) by Wilfred Arango MD Last refill: 05/16/2023 Rx #: [id number] Controlled Substance Failed 06/18/2023 10:04 AM Protocol Details Valid encounter within last 3 months Pain agreement on file This refill cannot be delegated To be filled at: [place], [place] - [address] [facility] [address]-1Yjudbprff encounter OdxkFV0424-23-98S14:19:40Telep luis encounter NoteTXT1.2.840.951945.1.13.104 .2.7.2.071200|[id number] lab for patient ptgy31991-7ZmgiWW829661273Jmbc en Aniyah Shukla [address] MibyAeskelldgRhqfccjmwVOCV7605 941868URHPJHUKEXGCNGCVQMBPTL23 25-06-18T08:19:401.2.840.48599 0.1.72.3.15|1.2.840.718953.1.1 3.104.2.7.2.727879_[id number] Faiza Shukla [facility] 2023-05-17 16:17:22 73O+/xjCEwjlGzODVJSj uA8VUDqCwB B+tlYW35ixmcqcDpllfGmR/r2ftpqg ar7+7981-66-22M45:17:22Formatt ing of this note might be different from the original.Sent prescription for accu-chek 89886-8Rrazfjwwc encounter RwpyVR1572-70-13D27:18:23Telep luis encounter NoteTXT1.2.840.005320.1.13.104 .2.7.2.920524|[id number] lable for patient uqej34946-2XurpAW103317882Eozv D Jetton [address]TXTX[address] 425433LPEWBBTQCMZXKQFGZLSEBN77 25-05-15T16:18:231.2.840.91517 0.1.72.3.15|1.2.840.722494.1.1 3.104.2.7.2.727879_[id number] Kia Perry [facility] 2023-05-17 15:47:18 q0jeggaBxYP9BoN5CBat 1VTkl6tzTl CZ7KxZef2WrCSiyfQ0VgDonWe6x16O Ky725491-63-59S63:47:18Formatt ing of this note might be different from the original.Images from the original note were not included. 12894-7Tmtduuhci encounter XsbiRQ7032-43-15P78:47:42Telep luis encounter NoteTXT1.2.840.992480.1.13.104 .2.7.2.495136|[id number] lable for patient xtol60608-8MsvyAY308615287Yyko da M [address]TXTX[address] 238050UIPAXHYQWVZBEGFFYDICGS69 25-05-155:47:421.2.840.99886 0.1.72.3.15|1.2.840.136036.1.1 3.104.2.7.2.727879_[id number] Stefanie Storey [facility] 2023-05-13 14:19:29 KzWwGrMBfxqEb3U1itnb JaBN2+bjku HN5T74ChUxW9g/p1VVzcK610VzMJ52 qT4q7942-30-57P66:19:29Formatt ing of this note might be different from the original.Patient daughter, Cami, called saying the HYDROcodone-ibuprofen 7.5-200 mg per tablet is on backorder. She's wanting to know if the medication could be switched to Hydrocodone with Tylenol. Please call. 01054-8Jvaitbewo encounter CouoPA1568-89-61U22:22:14Telep luis encounter NoteTXT1.2.840.924710.1.13.104 .2.7.2.628144|[id number] [facility] for patient fqqx30083-5VvzwKD457669539Wqlb a K [facility] RvpgTopuamzhdUrtyztcbtGTDR8484 107505BEMQXXPOMBHFDKOFHLLZVZ46 25-05-11T14:22:141.2.840.81541 0.1.72.3.15|1.2.840.784132.1.1 3.104.2.7.2.727879_[id number] Yarely Montemayor [facility] 2023-04-27 15:07:27 GEqbZrJFQ3vYbQTt+30O 0jq3T0Fla6 BQ1zSH3LcU3dGAc2uwkMnGUEs0oddm Cg2w7175-73-51H95:07:27Formatt ing of this note might be different from the original.Forms were faxed on 04/26/2023 at 5pm. 52914-8Yehztahni encounter DvkfLS5402-26-93L63:07:53Telep luis encounter NoteTXT1.2.840.195119.1.13.104 .2.7.2.208947|[id number] lable for patient etux814747359Peoykk J Lees [address] 618880HZUSIKFWZHMILWZIZZHCAQ27 24-04-26T15:07:531.2.840.06605 0.1.72.3.15|1.2.840.262118.1.1 3.104.2.7.2.727879_[id number] Brittany Lees [facility] 2023-04-27 06:39:39 u7/9bO1qRm/wZek3HX88 OwgvyvKSGd uX2mrYaoNqVRJxPWVdUVQoL4vUtVmi /UCT7602-50-41Y96:39:39Formatt ing of this note might be different from the original.I don't know about forms 55896-7Taqfrljab encounter SereUL2968-58-40J78:40:03Telep luis encounter NoteTXT1.2.840.278776.1.13.104 .2.7.2.803837|[id number] lable for patient [address] 979147OMETDHEUIKGJYVOSHBSJIX17 24-04-26T06:40:031.2.840.06291 0.1.72.3.15|1.2.840.540776.1.1 3.104.2.7.2.727879_[id number] [facility] 2023-04-26 14:42:04 pCS4k6BNupqcCVNF1FBL Srrfzxc/81 7Q2w7UirZCm+fK8WaDcBknmmYQN36w Rt/83017-12-93N99:42:04Formatt ing of this note might be different from the original.Ivonne Alvarez called stating they need the forms sent back so they can start the services for the pt. Ivonne stated that the forms were faxed on April 13 and nothing has been sent backPlease advise 98875-2Bvnmdemnk encounter BqxiJZ8497-57-67C62:44:38Telep luis encounter NoteTXT1.2.840.892011.1.13.104 .2.7.2.552226|[id number] lable for patient vppu401309978Qfzkka G Or[address]TXTX[address] 523879WIJIKEITXJKGYHYZDHRBTT45 24-04-25T14:44:381.2.840.55455 0.1.72.3.15|1.2.840.227774.1.1 3.104.2.7.2.727879_[id number] Joe Pham [facility] 2023-04-26 14:36:39 l+rCyDzafsflfKbUjAnk +4Lh/q8a9+ wNo9UlnrU8qZ/l9JCY4knhNDPJ/n7V bzJC0773-25-08E58:36:39Formatt ing of this note might be different from the original.Patients daughter Cami is calling in to check status of forms.Please advise 11081-3Vhfwhsasv encounter KeryIV7694-80-45Z81:37:18Telep luis encounter NoteTXT1.2.840.075129.1.13.104 .2.7.2.801992|[id number] lable for patient xbri741049021Grngwwlweul S Garcia[address]TXTX[address] 607621SJUJJTHPIUAOQJXTWGMIBC82 24-04-25T14:37:181.2.840.81984 0.1.72.3.15|1.2.840.839179.1.1 3.104.2.7.2.727879_[id number] Vidal Galan [facility] 2023-04-25 10:39:43 HSNRgc3eAMfHaFADoGrv a1csfGAbym zVvIJzeIWSxYQR7/6I3isn1n2LkW7o Pb2a8397-53-44N03:39:43Formatt ing of this note might be different from the original.Ivonne from [facility] called following up on Forms that provider needed to sign in able for them to starts services. [phone] fx [phone]. Please advise 45723-5Jgyjkbstl encounter VifbSM6403-89-18M12:41:47Telep luis encounter NoteTXT1.2.840.395422.1.13.104 .2.7.2.607387|[id number] lable for patient iefh862802513Nwgs A Fridi[address] AqgiYkzajtwnoSnfucgvwpQYJL2522 089548YDBIZYQSSFTWPSFAHLFIXE63 24-04-24T10:41:471.2.840.09152 0.1.72.3.15|1.2.840.953827.1.1 3.104.2.7.2.727879_[id number] Tiffanie Harry [facility] 2023-04-20 14:30:00 IQzoprJbXbbFu/x3BRn4 MAE3922N5w njj/yLnnqXUc++qqK8NXkZCQlwOlrp +V4p6175-99-07T83:30:00 Addended by: SUSAN ALVAREZ on: 05/05/2023 07:54 AM Modules accepted: Orders 48229-8Mhyvbtrp ZqvbwwbeSB5265-49-31X77:54:28A ddendum DocumentTXT1.2.840.571708.1.13 .104.2.7.2.172098|[id number] Available for patient jome23125-7VagcNVCEUZQWKP[address] HvunGrapaaqklSyugbnozbATIG3888 776290VNCMDAIZNHIUIJNWSXPPRF08 25-05-03T07:54:281.2.840.41323 0.1.72.3.15|1.2.840.831208.1.1 3.104.2.7.2.727879_[id number] [facility]
[2023-11-18 17:36] LABS: Absolute Lymphocytes (CBC) 0.7 K/uL (0.7-4.9); Lymphocytes % 13.1 % (15.3-44.8); MCV 87.7 fL (80-100); MPV 7.4 fL (7.6-11.3); Platelets 309 thou/uL (152-406); RBC Red Blood Cell Count 3.77 M/uL (3.86-4.86)
[2023-11-18 17:39] LABS: Protime INR 1.12
--- NOTE | 2023-11-18 17:39 | RAD REPORT ---
EXAM DESCRIPTION: RAD - Chest Single View - 11/18/2023 5:32 pm CLINICAL HISTORY: syncope COMPARISON: Chest Single View dated 02/03/2023; Chest Single View dated 12/25/2022 FINDINGS: Lines: None. Lungs: No evidence of edema or pneumonia. Pleural: No significant pleural effusions or pneumothorax. Cardiac: Similar size and configuration Mediastinum: Within normal limits. Bones: No acute fractures. Other: None IMPRESSION: No acute cardiopulmonary disease.
[2023-11-18 18:00] LABS: Albumin 2.9 g/dL (3.4-5.0); Bilirubin Direct 0.1 mg/dL (0-0.2); Bilirubin Indirect, Calculated 0.2 mg/dL (0.2-0.8); Bilirubin Total 0.3 mg/dL (0.2-1.0); Protein, Total 6.7 g/dL (6.4-8.2); Troponin High Sensitivity 12.2 pg/mL (<58.9)
--- NOTE | 2023-11-18 18:37 | RAD REPORT ---
EXAM DESCRIPTION: CTAbdomen Pelvis Wo Contrast - 11/18/2023 6:26 pm CLINICAL HISTORY: diverticulitis;Abd pain COMPARISON: Abdomen Pelvis Wo Contrast dated 12/27/2022 TECHNIQUE: CT of the abdomen and pelvis was performed. All CT scans are performed using dose optimization technique as appropriate and may include automated exposure control or mA/KV adjustment according to patient size. FINDINGS: Lower chest: Small hiatal hernia. Coronary artery calcifications and/or stents. Liver: No acute abnormality or suspicious lesions. Biliary: Cholecystectomy. Stomach: No significant focal abnormality. Duodenum: No significant focal abnormality. Pancreas: Sequela of chronic pancreatitis. No acute peripancreatic edema identified. Spleen: No significant abnormality. Adrenal: No suspicious lesions. Kidney/ureter: No hydronephrosis. No renal calculi. Retroperitoneum: No retroperitoneal adenopathy. Vascular: No aneurysm. Atherosclerosis. Bowel: Mild focal stranding at the mid sigmoid colon consistent with non perforated sigmoid diverticu litis .. Peritoneum: No ascites or free air. Bladder: Distended bladder which is otherwise unremarkable. Reproductive: Hysterectomy. Bones: Remote pelvic fractures. Remote inferior endplate fracture at L2 and remote L4 compression fra cture. Other: n/a IMPRESSION: Non perforated sigmoid diverticulitis. No perforation, abscess, or bowel obstruction. Ad ditional incidental findings as noted above.
--- NOTE | 2023-11-18 19:13 | EDPHYS ---
Physician Documentation [facility] Name: Yancy Sweeney Age: 88 yrs Sex: Female : 1935 Arrival Date: 11/18/2023 Time: 16:55 Bed 18 Private MD: ED Physician Jm Cornelius HPI: 11/18 17:24 This 88 yrs old Female presents to ER via EMS with complaints of Syncope. rn 17:24 The patient has experienced syncope. Onset: The symptoms/episode began/occurred just rn prior to arrival. Duration: This was a single episode. Associated injury: The patient did not suffer any apparent associated injury. Current symptoms: Currently, the patient is not experiencing any symptoms. The patient has not experienced similar symptoms in the past. Patient and family report currently being treated for diverticulitis with antibiotics. Was out shopping when had syncopal episode. Patient states prior to going shopping and over the last day or 2 has been having right arm pain and cramps. Family member states that she gets anxious that this might be a heart attack and pops her nitroglycerin tablets. Patient took a nitroglycerin tablet while walking in the store shortly before passing out. No fever or chest pain. Mild lower abdominal pain. No blood in stool. Patient feels much better now. Historical: - Allergies: 17:04 Levofloxacin; me1 17:04 Ciprofloxacin; cant take it with levoquin together; me1 - PMHx: 17:04 diabetes mellitus; Hypercholesterolemia; Hypertensive disorder; Myocardial infarction; me1 - Immunization history:: Adult Immunizations up to date. - Social history:: Smoking status: Patient denies any tobacco usage or history of. - Family history:: not pertinent. - Hospitalizations: : No recent hospitalization is reported. ROS: 17:24 Constitutional: Negative for fever, chills, and weight loss, Eyes: Negative for injury, rn pain, redness, and discharge, Neck: Negative for injury, pain, and swelling, Cardiovascular: Negative for chest pain, palpitations, and edema, Respiratory: Negative for shortness of breath, cough, wheezing, and pleuritic chest pain, Abdomen/GI: Positive for lower abdominal pain and nausea MS/Extremity: Negative for injury and deformity, Skin: Negative for injury, rash, and discoloration, Neuro: Positive for generalized weakness Exam: 17:24 Constitutional: This is a well developed, well nourished patient who is awake, alert, rn and in no acute distress. Head/Face: Normocephalic, atraumatic. ENT: Dry mucous membranes Cardiovascular: Regular rate and rhythm. No pulse deficits. Respiratory: No increased work of breathing, no retractions or nasal flaring. Abdomen/GI: Soft, LLQ tenderness, no rebound Skin: Warm, dry MS/ Extremity: Pulses equal, no cyanosis. Neuro: Awake and alert, GCS 15 Vital Signs: 16:59 BP 140 / 75; Pulse 68; Resp 16; Temp 98.2(O); Pulse Ox 99% on R/A; Weight 53.98 kg; me1 Height 5 ft. 5 in. ; 17:00 BP 140 / 75; Pulse 63; Resp 15; Temp 98.2; Pulse Ox 100% on R/A; aw1 18:00 BP 168 / 72; Pulse 73; Resp 19; Pulse Ox 99% on R/A; me1 18:45 BP 125 / 48; Pulse 64; Resp 15; Pulse Ox 99% on R/A; me1 16:59 Body Mass Index 19.80 (53.98 kg, 165.1 cm) me1 MDM: 17:04 Patient medically screened. rn 19:09 Differential Diagnosis: idiopathic syncope, vasovagal episode, Dehydration, perforated rn diverticulitis, medication reaction to nitroglycerin. Data reviewed: vital signs, nurses notes, lab test result(s), radiologic studies, CT scan, and as a result, I will discharge patient. Consideration of Admission/Observation Considered admission given syncopal episode but family wants to take her home. Daughter waste disposal attendant at assisted living facility and is going to take her home with her. Patient most likely had syncopal episode due to dehydration and battling with diverticulitis and then took nitroglycerin which dropped her blood pressure. Patient appears much better, hydrated, normal vital signs no episodes of hypotension, and CT does not show complicated diverticulitis. Is only on day 4 of antibiotics. Offered observation in the hospital, patient and family declined.. Counseling: I had a detailed discussion with the patient and/or guardian regarding the historical points, exam findings, and any diagnostic results supporting the discharge/admit diagnosis, lab results, radiology results, the need for outpatient follow up, to return to the emergency department if symptoms worsen or persist or if there are any questions or concerns that arise at home. 11/18 17:14 Order name: Basic Metabolic Panel rn 11/18 17:14 Order name: CBC with Diff; Complete Time: 18:41 rn 11/18 17:14 Order name: LFT's; Complete Time: 18:41 rn 11/18 17:14 Order name: NT PRO-BNP; Complete Time: 18:41 rn 11/18 17:14 Order name: PT-INR; Complete Time: 18:41 rn 11/18 17:14 Order name: Troponin HS; Complete Time: 18:41 rn 11/18 17:14 Order name: CMP; Complete Time: 18:41 rn 11/18 17:14 Order name: Lipase; Complete Time: 18:41 rn 11/18 17:14 Order name: XRAY Chest (1 view); Complete Time: 18:41 rn 11/18 18:17 Order name: Abdomen ; Complete Time: 18:41 EDMS 11/18 17:14 Order name: EKG; Complete Time: 17:15 rn 11/18 17:14 Order name: Cardiac monitoring; Complete Time: 17:32 rn 11/18 17:14 Order name: EKG - Nurse/Tech; Complete Time: 17:39 rn 11/18 17:14 Order name: IV Saline Lock; Complete Time: 17:27 rn 11/18 17:14 Order name: Labs collected and sent; Complete Time: 17:27 rn 11/18 17:14 Order name: O2 Per Protocol; Complete Time: 17:27 rn 11/18 17:14 Order name: O2 Sat Monitoring; Complete Time: 17:28 rn Administered Medications: 17:34 Drug: NS 0.9% IV 1000 ml IV at 1000 ml once Route: IV; Rate: 1000 ml; Site: left me1 antecubital; 18:57 Follow up: IV Status: Completed infusion; IV Intake: 1000ml me1 Disposition Summary: 11/18/23 19:12 Discharge Ordered Notes: Location: Home rn Problem: new rn Symptoms: have improved rn Condition: Stable rn Diagnosis - Syncope rn - Diverticulitis of large intestine without perforation or abscess without bleeding rn - Dehydration rn Followup: rn - With: Private Physician - When: As needed - Reason: Recheck today's complaints, Re-evaluation by your physician Discharge Instructions: - Discharge Summary Sheet rn - Dehydration, Adult rn - Diverticulitis rn - Syncope rn Forms: - Medication Reconciliation Form rn - Thank You Letter rn - Antibiotic internet manager - Prescription Opioid Use rn - Patient Portal Instructions rn - Leadership Thank You Letter rn Signatures: Dispatcher [employer] Jm Parra MD MD rn Lisa Mathew RN RN me1 Corrections: (The following items were deleted from the chart) 18:17 17:15 Abdomen Pelvis W Con+CT.RAD.BRZ ordered. EDMI TAIWOMI
--- NOTE | 2023-11-18 19:13 | ER ---
Nurse's Notes [facility] Name: Yancy Sweeney Age: 88 yrs Sex: Female : 1935 Arrival Date: 11/18/2023 Time: 16:55 Bed 18 Private MD: Diagnosis: Syncope;Diverticulitis of large intestine without perforation or abscess without bleeding;Dehydration Presentation: 11/18 16:59 Chief complaint: EMS states: toned out to [facility] for someone that "passed out". Upon me1 arrival patient was lying on the ground, A\\T\\Ox4. States she is on abx for diverticulitis and took her antibiotic on an empty stomach and that when she became nauseated she got weak and "almost passed out." Family was able to assist patient to the ground gently. 20g LAC, zofran 4 mg IV administered. BG 353. VS wnl. Coronavirus screen: Vaccine status: Patient reports being unvaccinated. Ebola Screen: No symptoms or risks identified at this time. Initial Sepsis Screen: Does the patient meet any 2 criteria? No. Patient's initial sepsis screen is negative. Does the patient have a suspected source of infection? No. Patient's initial sepsis screen is negative. Risk Assessment: Do you want to hurt yourself or someone else? Patient reports no desire to harm self or others. Onset of symptoms was November 18, 2023. 16:59 Method Of Arrival: EMS: [facility] 16:59 Acuity: NAOMIE 3 mi1 Triage Assessment: 17:04 General: Appears comfortable, ill, well groomed, well developed, well nourished, mi1 Behavior is calm, cooperative, appropriate for age, Reports States she is on abx for diverticulitis and took her antibiotic on an empty stomach and that when she became nauseated she got weak and "almost passed out." Family assisted patient gently to the ground without injury. Pain: Denies pain. Neuro: Level of Consciousness is awake, alert, obeys commands, Oriented to person, place, time, situation, Appropriate for age. Cardiovascular: Capillary refill < 3 seconds Patient's skin is warm and dry. Respiratory: Airway is patent Trachea midline Respiratory effort is even, unlabored, Respiratory pattern is regular, symmetrical. GI: Reports nausea, vomiting. Historical: - Allergies: 17:04 Levofloxacin; me1 17:04 Ciprofloxacin; cant take it with levoquin together; me1 - PMHx: 17:04 diabetes mellitus; Hypercholesterolemia; Hypertensive disorder; Myocardial infarction; me1 - Immunization history:: Adult Immunizations up to date. - Social history:: Smoking status: Patient denies any tobacco usage or history of. - Family history:: not pertinent. - Hospitalizations: : No recent hospitalization is reported. Screenin:06 [facility] ED Fall Risk Assessment (Adult) History of falling in the last 3 months, me1 including since admission Yes- single mechanical fall (1 pt) Confusion or Disorientation No (0 pts) Intoxicated or Sedated No (0 pts) Impaired Gait No (0 pts) Mobility Assist Device Used No (0 pt) Altered Elimination No (0 pt) Score/Fall Risk Level 0 - 2 = Low Risk Maintained a safe environment, Provided non-skid footwear, Hourly rounding (assess needs \\T\\ fall precautionary measures) done. Abuse screen: Denies threats or abuse. Nutritional screening: No deficits noted. Tuberculosis screening: No symptoms or risk factors identified. Assessment: 17:06 General: See triage assessment. . me1 Vital Signs: 16:59 BP 140 / 75; Pulse 68; Resp 16; Temp 98.2(O); Pulse Ox 99% on R/A; Weight 53.98 kg; me1 Height 5 ft. 5 in. ; 17:00 BP 140 / 75; Pulse 63; Resp 15; Temp 98.2; Pulse Ox 100% on R/A; aw1 18:00 BP 168 / 72; Pulse 73; Resp 19; Pulse Ox 99% on R/A; me1 18:45 BP 125 / 48; Pulse 64; Resp 15; Pulse Ox 99% on R/A; me1 16:59 Body Mass Index 19.80 (53.98 kg, 165.1 cm) me1 ED Course: 16:57 Patient arrived in ED. me1 17:04 Triage completed. me1 17:04 Jm Cornelius MD is Attending Physician. rn 17:04 Arm band placed on Patient placed in an exam room. me1 17:06 Patient has correct armband on for positive identification. Bed in low position. Call me1 light in reach. Side rails up X2. Provided Education on: POC. Verbalized understanding. . 17:06 No provider procedures requiring assistance completed. Maintain EMS IV. Dressing me1 intact. Good blood return noted. Site clean \\T\\ dry. Gauge \\T\\ site: 20 g LAC. 17:27 Lisa Mathew, RN is Primary Nurse. me1 17:32 Basic Metabolic Panel Sent. me1 17:32 XRAY Chest (1 view) Sent. me1 17:34 XRAY Chest (1 view) In Process Unspecified. EDMS 18:27 Abdomen In Process Unspecified. EDMS 19:33 IV discontinued, intact, bleeding controlled, No redness/swelling at site. Pressure me1 dressing applied. Administered Medications: 17:34 Drug: NS 0.9% IV 1000 ml IV at 1000 ml once Route: IV; Rate: 1000 ml; Site: left me1 antecubital; 18:57 Follow up: IV Status: Completed infusion; IV Intake: 1000ml me1 Medication: 17:06 VIS not applicable for this client. me1 Intake: 18:57 IV: 1000ml; Total: 1000ml. me1 Outcome: 19:12 Discharge ordered by . rn 19:33 Discharged to home via wheelchair, with family, me1 19:33 Condition: stable 19:33 Discharge instructions given to patient, family, Instructed on discharge instructions, follow up and referral plans. Demonstrated understanding of instructions, follow-up care, 19:34 Patient left the ED. me1 Signatures: Dispatcher [employer] Jm Parra MD MD rn Warren, Alyssa aw1 Lisa Mathew, RN RN mi1
[2023-11-18 20:25] VITALS: TEMP 98.2
[2023-11-18 20:26] VITALS: BP 125/48; O2SAT 99
--- NOTE | 2023-11-21 11:03 | EKG ---
Test Date: 2023-11-18 Test Time: 17:35:33 Road Train Driver: ROBIN MEASUREMENT RESULTS: Intervals: Rate: 62 FL: 180 QRSD: 158 QT: 466 QTc: 472 [place]: P: 88 FL: 180 QRS: -37 T: 121 INTERPRETIVE STATEMENTS: Normal sinus rhythm Left axis deviation Left bundle branch block Abnormal ECG Compared to ECG 02/03/2023 20:21:56 No significant changes Electronically Signed On 11-21-23 10:58:43 ASSEMBLY INSPECTOR by Jani Marrero
== END ==
LOC: ER 16:55
DX: R55 Syncope and collapse (principal); E86.0 Dehydration; K57.32 Diverticulitis of large intestine without perforation or abscess without bleeding; E11.9 Type 2 diabetes mellitus without complications; I10 Essential (primary) hypertension; I25.2 Old myocardial infarction; Z88.1 Allergy status to other antibiotic agents
CPT/HCPCS: 85025; 36415; 85610; 80076; 84484; 83690; 80053; 83880; 74176; 71045; 96360; 99284; J7030; 93005

== ENCOUNTER 2024-03-07 21:11 | Inpatient (IN) | payer OTHER ==
--- OUTSIDE RECORDS SUMMARY | 2024-03-07 21:16 | XMS REPORT | Continuity of Care Document ---
Author Name Unknown Address [address] [place] [address] [facility] Address [address] [place] [address] Care Team Providers Care Mail Order Biller Name Role Phone Wilfred Ramos MD Primary Care Physician [phone] JAI PEDRAZA Attending Clinician UnaWILFRED Malave Attending Clinician Unavailable Wilfred Ramos MD Attending Clinician [phone] STEVEN GARNICA Attending Clinician Unavailable ANJU HANNA Attending Clinician Unavailable Anju Jackson Attending Clinician [phone] Vanessa Colvin RN Attending Clinician Unavailab le Doctor Unassigned, [place] Attending Clinician U Rosio Sorto MD Attending Clinician + [phone] ROSIO WILLIAMSON Attending Clinician Olga Buitrago Cardiology - Clear Attending Clinician Cara OMER Hurley Attending Clinician Unavailable Omer Ruelas MD Attending Clinician [phone] Lab, Ang - Db Attending Clinician Unavailable LEEROY ALBARRAN Attending Clinician UnavailLeeory Kaye MD Attending Clinician [phone] MARCIA MONTALVO Attending Clinician Unavailable Jamie Guzmán MD Attending Clinician [phone] JAMIE GUZMÁN Attending Clinician UnavailMarcia Eduardo Attending Clinician [phone] Dora Amor Attending Clinician [phone] PERLA VILLARREAL Attending Clinician Unavail able PERLA VILLARREAL Attending Clinician Unavail able Jas MONROE, Jai Kinsey Attending Clinician + [phone] Only, Adc Test Attending Clinician Unavailable Dwight WALLACEDamien Attending Clinician [phone] Cecille RN, Meseret Attending Clinician Unavailable Aidee Nunez Attending Clinician [phone] Jose Everett MD Attending Clinician [phone] Jewell PINEDA, Heaven Conner Attending Clinician Cara vailable Lab, Adc Fam Pob I Attending Clinician Unavailab ana maria VILLAREAL, Roberto Attending Clinician [phone] ROBERTO HURST Attending Clinician Unavailable Pob, Adc Lab Main Attending Clinician Unavailabl JAI Willingham Admitting Clinician Jai Davies MD Admitting Clinician + [phone] Jose Everett MD Admitting Clinician [phone] Payers Payer Name Policy Type Policy Number Effective Date Expirati on Date Source [employer] [id number] 2014 00:00:00 Problems Condition Name Condition Details Condition Category Status Onset Date Resolution Date Last Treatment Date Treating Clinician Comments Source Colitis, acute Colitis, acute Disease Active 10-24 00:00: 00 [facility] Essential hypertensi on Essential hypertensi on Disease Active 02-15 00:00: 00 [facility] Type 2 diabetes mellitus without complicati on, with long-term current use of insulin Type 2 diabetes mellitus without complicati on, with long-term current use of insulin Disease Active 02-15 00:00: 00 [facility] UTI (urinary tract infection) UTI (urinary tract infection) Disease Active 03-20 00:00: 00 [facility] Acute bilateral low back pain with sciatica Acute bilateral low back pain with sciatica Disease Active 03-20 00:00: 00 [facility] Allergies, Adverse Reactions, Alerts Allergy Name Allergy Type Status Severity Reaction(s) Onset Date Inactive Date Treating Clinician Comments Source NO KNOWN ALLERGIE S Drug Class Active [facility] Social History Social Habit Start Date Stop Date Quantity Comments Source Gender identity [facility] intake 2024-01-12 00:00:00 2024-01-12 00:00:00 Current non-drinker of alcohol (finding) [facility] Alcohol intake 2024-01-12 00:00:00 2024-01-12 00:00:00 Current non-drinker of alcohol (finding) [facility] History of Social function 2023-09-20 00:00:00 2023-09-20 00:00:00 [facility] Exposure to SARS-CoV-2 (event) 2023-02-14 00:00:00 2023-02-24 13:40:00 Not sure [facility] Tobacco use and exposure 2022-09-22 00:00:00 2022-09-22 00:00:00 Smokeless tobacco non-user [facility] Sex assigned at 1935 00:00:00 1935 00:00:00 [facility] Smoking Status Start Date Stop Date Source Never smoked tobacco [facility] Medications Ordered Medication Name Filled Medication Name Start Date Stop Date Current Medication? Ordering Clinician Indication Dosage Frequency Signature (SIG) Comments Components Source HYDROcodone -acetaminop hen 7.5-325 mg per tablet 02-12 00:00: 00 Yes [id number] TAKE ONE TABLET BY MOUTH EVERY SIX HOURS NEEDED FOR PAIN INDICATION S: CHRONIC PAIN Indication s: chronic pain [facility] LISINOPRIL 20 mg tablet 3-07 00:00: 00 Yes [id number] 20mg TAKE 1 TABLET BY MOUTH IN THE MORNING. [facility] HYDROcodone -acetaminop hen 7.5-325 mg per tablet 2-29 00:00: 00 02-12 00:00 :00 No [id number] TAKE 1 TABLET BY MOUTH EVERY SIX HOURS NEEDED FOR PAIN Indication s: chronic pain [facility] metroNIDAZO LE (FLAGYL) 500 mg tablet 11-14 00:00: 00 Yes [id number] 500mg Take 1 tablet by mouth every 8 (eight) hours. [facility] ciprofloxac in HCl (CIPRO) 500 mg tablet 11-14 00:00: 00 Yes [id number] 500mg Take 1 tablet by mouth every 12 (twelve) hours. [facility] iopamidol (ISOVUE 370-500 mL) injection 80 mL 10-05 23:00: 00 10-05 22:02 :00 No [id number] 80mL 80 mL, Intravenou s, ONCE, 1 dose, On Tue10/05/23 at 1700, Routine [facility] ciprofloxac in HCl (CIPRO) 500 mg tablet 10-05 00:00: 00 Yes [id number] 500mg Take 1 tablet by mouth every 12 (twelve) hours. [facility] metroNIDAZO LE (FLAGYL) 500 mg tablet 10-05 00:00: 00 Yes [id number] 500mg Take 1 tablet by mouth every 12 (twelve) hours. [facility] nitroglycer in 0.3 mg sublingual tablet 2022-10 00:00: [id number] 1 tablet under the tongue every 5 (five) minutes as needed for Chest pain. [facility] hydroCHLORO thiazide 12.5 mg capsule 2022-10 00:00: 00 Yes [id number] 12.5mg Take 1 capsule by mouth in the morning. [facility] escitalopra m oxalate 5 mg tablet 2022-10 00:00: 00 Yes [id number] TAKE ONE TABLET BY MOUTH IN THE MORNING. [facility] lisinopriL 20 mg tablet 2022-10 00:00: 00 12-07 00:00 :00 No [id number] 20mg Take 1 tablet by mouth in the morning. [facility] HYDROcodone -acetaminop hen 7.5-325 mg per tablet 2022-10 00:00: 00 2024- 02-29 00:00 :00 No 2745 TAKE 1 TABLET BY MOUTH EVERY SIX HOURS NEEDED FOR PAIN Indication s: chronic pain [facility] metformin ER 750 mg 24 hr tablet 2022-10 2- 00:00: 00 Yes [id number] 750mg Take 1 tablet by mouth daily with breakfast. [facility] insulin detemir U-100 100 unit/mL injection 2022-10 2-19 00:00: 00 Yes [id number] Take 20 units in the morning and 12 units at bedtime E11.65 [facility] ESCITALOPRA M OXALATE 5 mg tablet 2022-10 2-06 00:00: 00 09-21 00:00 :00 No [id number] TAKE ONE TABLET BY MOUTH IN THE MORNING. [facility] ESCITALOPRA M OXALATE 5 mg tablet 2022-10 1-14 00:00: 00 Yes [id number] 5mg TAKE 1 TABLET BY MOUTH IN THE MORNING. [facility] ESCITALOPRA M OXALATE 5 mg tablet 2022-10 0-12 00:00: 00 Yes [id number] 5mg TAKE 1 TABLET BY MOUTH IN THE MORNING. [facility] LISINOPRIL 20 mg tablet 2022-10 0-12 00:00: 00 09-21 00:00 :00 No [id number] 20mg TAKE 1 TABLET BY MOUTH DAILY [facility] HYDROCODONE -ACETAMINOP HEN 7.5-325 mg per tablet 2022-10 0-12 00:00: 00 09-21 00:00 :00 No [id number] TAKE 1 TABLET BY MOUTH EVERY SIX HOURS NEEDED FOR PAIN [facility] HYDROCODONE -ACETAMINOP HEN 7.5-325 mg per tablet 918 00:00: 00 Yes [id number] TAKE 1 TABLET BY MOUTH EVERY SIX HOURS NEEDED FOR PAIN [facility] Insulin Comer, Disposable, (PEN NEEDLE) 32 gauge x 5/32" Ndle 05-17 00:00: 00 Yes [id number] Use as directed daily E11.65 [facility] Lancets (ACCU-CHEK SOFTCLIX LANCETS) Misc 05-17 00:00: 00 Yes Use as directed to check blood sugars twice daily E11.65 [facility] Blood-Gluco se Meter (ACCU-CHEK GUIDE GLUCOSE METER) [facility] 05-17 00:00: 00 Yes Use as directed to check blood sugars twice daily E11.65 [facility] blood sugar diagnostic (ACCU-CHEK GUIDE TEST STRIPS) strip 05-17 00:00: 00 Yes Use as directed to check blood sugars twice daily E11.65 [facility] metformin ER 750 mg 24 hr tablet 05-17 00:00: 00 09-20 00:00 :00 No [id number] 750mg Take 1 tablet by mouth daily with breakfast. [facility] Insulin Detemir (LEVEMIR FLEXPEN) 100 unit/mL (3 mL) injection 05-17 00:00: 00 09-20 00:00 :00 No [id number] 28U inject 28 Units under the skin every morning. E11.65 [facility] ONETOUCH VERIO TEST STRIPS strip 05-17 00:00: 00 05-17 00:00 :00 No [id number] Use as directed BID E11.65 [facility] ONETOUCH VERIO REFLECT METER [facility] 05-17 00:00: 00 05-17 00:00 :00 No [id number] Use as directed BID E11.65 [facility] HYDROcodone -acetaminop hen 7.5-325 mg per tablet 05-16 00:00: 00 06-16 04:59 :00 No [id number] 1{tbl} Take 1 tablet by mouth every 6 (six) hours as needed for Pain for up to 30 days. Indication s: chronic pain [facility] ciprofloxac in HCl (CIPRO) 500 mg tablet 05-05 00:00: 00 11-14 00:00 :00 No [id number] 500mg Take 1 tablet by mouth every 12 (twelve) hours. [facility] insulin detemir U-100 (LEVEMIR U-100 INSULIN) 100 unit/mL injection 05-05 00:00: 00 05-17 00:00 :00 No [id number] 34U inject 34 Units under the skin at bedtime. [facility] insulin detemir U-100 (LEVEMIR U-100 INSULIN) 100 unit/mL injection 04-20 00:00: 00 05-05 00:00 :00 No [id number] 34U inject 34 Units under the skin at bedtime. [facility] ciprofloxac in HCl (CIPRO) 500 mg tablet 04-20 00:00: 00 05-05 00:00 :00 No [id number] 500mg Take 1 tablet by mouth every 12 (twelve) hours. [facility] ESCITALOPRA M OXALATE 5 mg tablet 04-12 00:00: 00 07-14 00:00 :00 No [id number] 5mg TAKE 1 TABLET BY MOUTH IN THE MORNING. [facility] LISINOPRIL 20 mg tablet 04-12 00:00: 00 07-14 00:00 :00 No [id number] 20mg TAKE 1 TABLET BY MOUTH DAILY. [facility] insulin detemir U-100 (LEVEMIR U-100 INSULIN) 100 unit/mL injection 03-10 00:00: 00 04-20 00:00 :00 No [id number] 34U inject 34 Units under the skin at bedtime. [facility] HYDROcodone -ibuprofen 7.5-200 mg per tablet 05 00:00: 00 09-21 00:00 :00 No 2745 TAKE 1 TABLET BY MOUTH EVERY SIX HOURS NEEDED FOR PAIN Indication s: chronic pain [facility] nitroglycer in 0.3 mg sublingual tablet 02-24 00:00: 00 09-21 00:00 :[id number] 1 tablet under the tongue every 5 (five) minutes as needed for Chest pain. [facility] HYDROcodone -ibuprofen 7.5-200 mg per tablet 02-07 00:00: 03-07 00:00 :00 No 2745 TAKE 1 TABLET BY MOUTH EVERY SIX HOURS NEEDED FOR PAIN Indication s: chronic pain [facility] triamcinolo ne acetonide (KENALOG) injection 40 mg 05 16:30: 00 12-24 15:18 :00 No [id number] 40mg [facility] ondansetron 4 mg tablet 05 00:00: 00 Yes [id number] 4mg Take 1 tablet by mouth every 4 (four) hours as needed for Nausea and Vomiting (N/V). [facility] triamcinolo ne acetonide (KENALOG) injection 40 mg 12-24 14:45: 00 12-25 02:44 :00 No [id number] 40mg Unive [facility] HYDROcodone -ibuprofen 7.5-200 mg per tablet 17 00:00: 00 02-07 00:00 :00 No 2745 TAKE 1 TABLET BY MOUTH EVERY SIX HOURS NEEDED FOR PAIN Indication s: chronic pain [facility] diclofenac 50 mg EC tablet 16 00:00: 00 Yes [id number] 50mg Take 1 tablet by mouth in the morning and 1 tablet in the evening. Take with meals. [facility] ALPRAZolam 0.25 mg tablet 16 00:00: 00 Yes [id number] TAKE 1/2 TABLET BY MOUTH THREE TIMES DAILY NEEDED FOR ANXIETY [facility] HYDROcodone -acetaminop hen 5-325 mg tablet 16 00:00: 00 09-21 00:00 :00 No 2745 TAKE 1 TABLET BY MOUTH EVERY FOUR HOURS NEEDED FOR PAIN Indication s: chronic pain [facility] methocarbam oL 500 mg tablet 11-25 00:00: 00 Yes [id number] 109 500mg Take 1 tablet by mouth 3 (three) times daily as needed for Pain (scale 4-6). [facility] hydroCHLORO thiazide 12.5 mg capsule 11-25 00:00: 00 09-21 00:00 :00 No [id number] 12.5mg Take 1 capsule by mouth in the morning. [facility] insulin detemir U-100 (LEVEMIR U-100 INSULIN) 100 unit/mL injection 11-25 00:00: 00 03-10 00:00 :00 No [id number] 28U inject 28 Units under the skin at bedtime. [facility] HYDROcodone -ibuprofen 7.5-200 mg per tablet 11-25 00:00: 00 12-17 00:00 :00 No 2745 TAKE 1 TABLET BY MOUTH EVERY SIX HOURS NEEDED FOR PAIN Indication s: chronic pain [facility] insulin detemir U-100 (LEVEMIR U-100 INSULIN) 100 unit/mL injection 10-25 00:00: 00 11-25 00:00 :00 No [id number] 28U inject 28 Units under the skin at bedtime. [facility] HYDROcodone -ibuprofen 7.5-200 mg per tablet 10-25 00:00: 00 11-25 00:00 :00 No 2745 TAKE 1 TABLET BY MOUTH EVERY SIX HOURS NEEDED FOR PAIN Indication s: chronic pain [facility] HYDROcodone -ibuprofen 7.5-200 mg per tablet 2021-10 00:00: 00 10-25 00:00 :00 No 2745 TAKE 1 TABLET BY MOUTH EVERY SIX HOURS NEEDED FOR PAIN Indication s: chronic pain [facility] escitalopra m oxalate (LEXAPRO) 5 mg tablet 2021-10 00:00: 00 04-12 00:00 :00 No [id number] 5mg Take 1 tablet by mouth in the morning. [facility] ALPRAZolam 0.25 mg tablet 2021-10 00:00: 00 12-16 00:00 :00 No [id number] TAKE 1/2 TABLET BY MOUTH THREE TIMES DAILY NEEDED FOR ANXIETY [facility] methocarbam oL 500 mg tablet 2021-10 00:00: 11-25 00:00 :00 No [id number] 109 500mg Take 1 tablet by mouth 3 (three) times daily as needed for Pain (scale 4-6). [facility] HYDROcodone -ibuprofen 7.5-200 mg per tablet 2021-10- 00:00: 00 09-29 00:00 :00 No 2745 TAKE 1 TABLET BY MOUTH EVERY SIX HOURS NEEDED FOR PAIN Indication s: chronic pain [facility] HYDROcodone -ibuprofen 7.5-200 mg per tablet 2021-10 0-05 00:00: 00 Yes 2745 TAKE 1 TABLET BY MOUTH EVERY SIX HOURS NEEDED FOR PAIN Indication s: chronic pain [facility] losartan 50 mg tablet 2021-10 0-04 00:00: 00 09-21 00:00 :00 No [facility] gabapentin 300 mg capsule 06-16 00:00: 00 Yes 300mg Take 1 capsule by mouth every evening. [facility] metformin ER 750 mg 24 hr tablet 06-04 00:00: 05-17 00:00 :00 No [id number] 750mg Take 1 tablet by mouth in the morning and 1 tablet in the evening. Take with meals. [facility] insulin detemir U-100 (LEVEMIR U-100 INSULIN) 100 unit/mL injection 06-04 00:00: 00 10-25 00:00 :00 No [id number] 28U inject 28 Units under the skin at bedtime. [facility] HYDROcodone -ibuprofen 7.5-200 mg per tablet -15 00:00: 00 07-07 00:00 :00 No 2745 TAKE 1 TABLET BY MOUTH EVERY SIX HOURS NEEDED FOR PAIN Indication s: chronic pain [facility] HYDROCHLORO THIAZIDE 12.5 mg capsule -31 00:00: 00 11-25 00:00 :00 No [id number] 12.5mg TAKE 1 CAPSULE BY MOUTH DAILY [facility] cefUROXime 500 mg tablet - 00:00: 00 04-20 00:00 :00 No [id number] 500mg Take 1 tablet by mouth 2 (two) times daily. [facility] lisinopriL 20 mg tablet 02-25 00:00: 00 04-12 00:00 :00 No [id number] 20mg Take 1 tablet by mouth daily. [facility] insulin detemir U-100 (LEVEMIR U-100 INSULIN) 100 unit/mL injection 01-26 00:00: 00 06-04 00:00 :00 No [id number] 24U inject 24 Units under the skin at bedtime. [facility] metformin ER 750 mg 24 hr tablet 01-26 00:00: 00 06-04 00:00 :00 No [id number] 750mg Take 1 tablet by mouth 2 (two) times daily with meals. [facility] HYDROCODONE -ACETAMINOP HEN 5-325 mg tablet 2020-10 00:00: 00 12-16 00:00 :00 No [id number] TAKE 1 TABLET BY MOUTH EVERY FOUR HOURS NEEDED FOR PAIN [facility] ALPRAZOLAM 0.25 mg tablet 2020-10 00:00: 00 09-22 00:00 :00 No [id number] TAKE 1/2 TABLET BY MOUTH THREE TIMES DAILY NEEDED FOR ANXIETY [facility] mirtazapine 7.5 mg tablet 2-24 00:00: 00 09-22 00:00 :00 No [id number] 7.5mg Take 1 tablet by mouth at bedtime. [facility] LORazepam 0.5 mg tablet -20 00:00: 00 09-22 00:00 :00 No [id number] .5mg Take 1 tablet by mouth 2 (two) times daily as needed for Anxiety. [facility] ondansetron 4 mg tablet 10-21 00:00: 00 01-05 00:00 :00 No 4mg Take 1 tablet by mouth every 4 (four) hours as needed for Nausea and Vomiting (N/V). [facility] neomycin-po lymyxin-hyd rocortisone 3.5-10,000- 1 mg/mL-unit/ mL-% otic susp 10-16 00:00: 00 Yes [id number] 71559 3[drp] Place 3 Drops in left ear 4 (four) times daily. [facility] metroNIDAZO LE (FLAGYL) 500 mg tablet 10-16 00:00: 00 11-14 00:00 :00 No [id number] 500mg Take 1 tablet by mouth every 8 (eight) hours. [facility] sennosides- docusate sodium (ADONIS-COLAC E) 8.6-50 mg per tablet 02-10 00:00: 00 Yes [id number] 1{tbl} Take 1 tablet by mouth daily. [facility] ondansetron (ZOFRAN) 4 mg tablet 2017-10 00:00: 00 05-05 00:00 :00 No 4mg Take 1 tablet by mouth every 8 (eight) hours as needed for Nausea and Vomiting (N/V). [facility] acetaminoph en-codeine (TYLENOL-CO DEINE #3) 300-30 mg tablet 2017-10 00:00: 00 12-16 00:00 :00 No 1{tbl} Take 1 tablet by mouth every 6 (six) hours as needed for Pain (scale 7-10). [facility] famotidine 40 mg tablet 04-12 00:00: 00 Yes [id number] 40mg Take 1 tablet by mouth daily. [facility] Immunizations Ordered Immunization Name Filled Immunization Name Date Status Comments Source Influenza High Dose Quad 2020-07-03 00:00:00 Completed [facility] Influenza High Dose Quad 2020-07-03 00:00:00 Completed [facility] Influenza High Dose Quad 2020-07-03 00:00:00 Completed [facility] Influenza High Dose Quad 2020-07-03 00:00:00 Completed [facility] Influenza High Dose Quad 2020-07-03 00:00:00 Completed [facility] Influenza High Dose Quad 2020-07-03 00:00:00 Completed [facility] Influenza High Dose Quad 2020-07-03 00:00:00 Completed [facility] Influenza High Dose Quad 2020-07-03 00:00:00 Completed [facility] Influenza High Dose Quad 2020-07-03 00:00:00 Completed [facility] Influenza High Dose Quad 2020-07-03 00:00:00 Completed [facility] Influenza High Dose Quad 2020-07-03 00:00:00 Completed [facility] Influenza High Dose Quad 2020-07-03 00:00:00 Completed [facility] Influenza High Dose Quad 2020-07-03 00:00:00 Completed [facility] Influenza High Dose Quad 2020-07-03 00:00:00 Completed [facility] Influenza High Dose Quad 2020-07-03 00:00:00 Completed [facility] Influenza High Dose Quad 2020-07-03 00:00:00 Completed [facility] Influenza High Dose Quad 2020-07-03 00:00:00 Completed [facility] Influenza High Dose Quad 2020-07-03 00:00:00 Completed [facility] Influenza High Dose Quad 2020-07-03 00:00:00 Completed [facility] Influenza High Dose Quad 2020-07-03 00:00:00 Completed [facility] Influenza High Dose Quad 2020-07-03 00:00:00 Completed [facility] Influenza High Dose Quad 2020-07-03 00:00:00 Completed [facility] Influenza High Dose Quad 2020-07-03 00:00:00 Completed [facility] Influenza High Dose Quad 2020-07-03 00:00:00 Completed [facility] Influenza High Dose Quad 2020-07-03 00:00:00 Completed [facility] Influenza High Dose Quad 2020-07-03 00:00:00 Completed [facility] Influenza High Dose Quad 2020-07-03 00:00:00 Completed [facility] Influenza High Dose Quad 2020-07-03 00:00:00 Completed [facility] Influenza High Dose Quad 2020-07-03 00:00:00 Completed [facility] Influenza High Dose Quad 2020-07-03 00:00:00 Completed [facility] Influenza High Dose Quad 2020-07-03 00:00:00 Completed [facility] Influenza High Dose Quad 2020-07-03 00:00:00 Completed [facility] Influenza High Dose Quad 2020-07-03 00:00:00 Completed [facility] Influenza High Dose Quad 2020-07-03 00:00:00 Completed [facility] Influenza High Dose Quad 2020-07-03 00:00:00 Completed [facility] Influenza High Dose Quad 2020-07-03 00:00:00 Completed [facility] Influenza High Dose Quad 2020-07-03 00:00:00 Completed [facility] Influenza High Dose Quad 2020-07-03 00:00:00 Completed [facility] Influenza High Dose Quad 2020-07-03 00:00:00 Completed [facility] Influenza High Dose Quad 2020-07-03 00:00:00 Completed [facility] Influenza High Dose Quad 2020-07-03 00:00:00 Completed [facility] Influenza High Dose Quad 2020-07-03 00:00:00 Completed [facility] Influenza High Dose Quad 2020-07-03 00:00:00 Completed [facility] Influenza High Dose Quad 2020-07-03 00:00:00 Completed [facility] Influenza High Dose Quad 2020-07-03 00:00:00 Completed [facility] Influenza High Dose Quad 2020-07-03 00:00:00 Completed [facility] Influenza High Dose Quad 2020-07-03 00:00:00 Completed [facility] Influenza High Dose Quad 2020-07-03 00:00:00 Completed [facility] Influenza High Dose Quad 2020-07-03 00:00:00 Completed [facility] Influenza High Dose Quad 2020-07-03 00:00:00 Completed [facility] Influenza High Dose Quad 2020-07-03 00:00:00 Completed [facility] Influenza High Dose Quad 2020-07-03 00:00:00 Completed [facility] Influenza High Dose Quad 2020-07-03 00:00:00 Completed [facility] Influenza High Dose Quad 2020-07-03 00:00:00 Completed [facility] Influenza High Dose Quad 2020-07-03 00:00:00 Completed [facility] Influenza High Dose Quad 2020-07-03 00:00:00 Completed [facility] Influenza High Dose Quad 2020-07-03 00:00:00 Completed [facility] Influenza High Dose Quad 2020-07-03 00:00:00 Completed [facility] Influenza High Dose Quad 2020-07-03 00:00:00 Completed [facility] Influenza High Dose Quad 2020-07-03 00:00:00 Completed [facility] Influenza High Dose Quad 2020-07-03 00:00:00 Completed [facility] Influenza High Dose Quad 2020-07-03 00:00:00 Completed [facility] Influenza High Dose Quad Unknown Completed [facility] Influenza High Dose Quad Unknown Completed [facility] Influenza High Dose Quad Unknown Completed [facility] Influenza High Dose Quad Unknown Completed [facility] Influenza High Dose Quad Unknown Completed [facility] Influenza High Dose Quad Unknown Completed [facility] Influenza High Dose Quad Unknown Completed [facility] Influenza High Dose Quad Unknown Completed [facility] Influenza High Dose Quad Unknown Completed [facility] Influenza High Dose Quad Unknown Completed [facility] Influenza High Dose Quad Unknown Completed [facility] Influenza High Dose Quad Unknown Completed [facility] Influenza High Dose Quad Unknown Completed [facility] Influenza High Dose Quad Unknown Completed [facility] Influenza High Dose Quad Unknown Completed [facility] Influenza High Dose Quad Unknown Completed [facility] Influenza High Dose Quad Unknown Completed [facility] Influenza High Dose Quad Unknown Completed [facility] Influenza High Dose Quad Unknown Completed [facility] Influenza High Dose Quad Unknown Completed [facility] Influenza High Dose Quad Unknown Completed [facility] Influenza High Dose Quad Unknown Completed [facility] Influenza High Dose Quad Unknown Completed [facility] Influenza High Dose Quad Unknown Completed [facility] Influenza High Dose Quad Unknown Completed [facility] Influenza High Dose Quad Unknown Completed [facility] Vital Signs Vital Name Observation Time Observation Value Comments S ource Systolic blood pressure 2024-01-12 18:12:00 139 mm[Hg] [facility] Diastolic blood pressure 2024-01-12 18:12:00 78 mm[Hg] [facility] Heart rate 2024-01-12 18:09:00 77 /min [facility] Body temperature 2024-01-12 18:09:00 36.5 Denice [facility] Body height 2024-01-12 18:09:00 165.1 cm [facility] Body weight 2024-01-12 18:09:00 55.339 kg [facility] BMI 2024-01-12 18:09:00 20.30 kg/m2 [facility] Systolic blood pressure 2023-11-14 20:07:00 122 mm[Hg] [facility] Diastolic blood pressure 2023-11-14 20:07:00 74 mm[Hg] [facility] Heart rate 2023-11-14 20:01:00 78 /min [facility] Body temperature 2023-11-14 20:01:00 36.94 Denice [facility] Body height 2023-11-14 20:01:00 165.1 cm [facility] Body weight 2023-11-14 20:01:00 53.978 kg [facility] BMI 2023-11-14 20:01:00 19.80 kg/m2 [facility] Systolic blood pressure 2023-10-05 19:56:00 149 mm[Hg] [facility] Diastolic blood pressure 2023-10-05 19:56:00 81 mm[Hg] [facility] Heart rate 2023-10-05 19:55:00 87 /min [facility] Body height 2023-10-05 19:55:00 165.1 cm [facility] Body weight 2023-10-05 19:55:00 57.97 kg [facility] BMI 2023-10-05 19:55:00 21.27 kg/m2 [facility] Oxygen saturation in Arterial blood by Pulse oximetry 2023-10-05 19:55:00 98 /min [facility] Systolic blood pressure 2023-09-21 19:06:00 131 mm[Hg] [facility] Diastolic blood pressure 2023-09-21 19:06:00 76 mm[Hg] [facility] Heart rate 2023-09-21 19:06:00 66 /min [facility] Body height 2023-09-21 19:06:00 165.1 cm [facility] Body weight 2023-09-21 19:06:00 57.335 kg [facility] BMI 2023-09-21 19:06:00 21.03 kg/m2 [facility] [place] Oxygen saturation in Arterial blood by Pulse oximetry 2023-09-21 19:06:00 99 /min [facility] Systolic blood pressure 2023-09-20 19:35:00 136 mm[Hg] [facility] Diastolic blood pressure 2023-09-20 19:35:00 69 mm[Hg] [facility] Heart rate 2023-09-20 19:35:00 61 /min [facility] [place] Body height 2023-09-20 19:35:00 165.1 cm Univ [facility] Body weight 2023-09-20 19:35:00 57.289 kg [facility] [place] BMI 2023-09-20 19:35:00 21.02 kg/m2 [facility] [place] Oxygen saturation in Arterial blood by Pulse oximetry 2023-09-20 19:35:00 99 /min [place] [facility] Systolic blood pressure 2023-05-17 16:18:00 161 mm[Hg] [facility] Diastolic blood pressure 2023-05-17 16:18:00 73 mm[Hg] [place] [place] Heart rate 2023-05-17 16:18:00 76 /min [facility] [place] Body height 2023-05-17 16:18:00 165.1 cm [facility] [place] Body weight 2023-05-17 16:18:00 54.658 kg [facility] BMI 2023-05-17 16:18:00 20.05 kg/m2 [facility] [place] Oxygen saturation in Arterial blood by Pulse oximetry 2023-05-17 16:18:00 99 /min [place] [facility] Systolic blood pressure 2023-04-20 19:29:00 132 mm[Hg] [facility] Diastolic blood pressure 2023-04-20 19:29:00 66 mm[Hg] [facility] Heart rate 2023-04-20 19:29:00 64 /min [facility] Respiratory rate 2023-04-20 19:29:00 18 /min [facility] Body height 2023-04-20 19:29:00 165.1 cm [facility] Body weight 2023-04-20 19:29:00 55.883 kg [facility] BMI 2023-04-20 19:29:00 20.50 kg/m2 [facility] Oxygen saturation in Arterial blood by Pulse oximetry 2023-04-20 19:29:00 99 /min [facility] Systolic blood pressure 2023-03-10 18:43:00 144 mm[Hg] [facility] Diastolic blood pressure 2023-03-10 18:43:00 53 mm[Hg] [facility] Heart rate 2023-03-10 18:43:00 60 /min [facility] Respiratory rate 2023-03-10 18:43:00 18 /min [facility] Body height 2023-03-10 18:43:00 165.1 cm [facility] Body weight 2023-03-10 18:43:00 56.518 kg [facility] BMI 2023-03-10 18:43:00 20.73 kg/m2 [facility] Oxygen saturation in Arterial blood by Pulse oximetry 2023-03-10 18:43:00 99 /min [facility] Systolic blood pressure 2023-02-24 18:53:00 165 mm[Hg] [facility] Diastolic blood pressure 2023-02-24 18:53:00 63 mm[Hg] [facility] Heart rate 2023-02-24 18:52:00 58 /min [facility] Body temperature 2023-02-24 18:52:00 37.33 Denice [facility] Body height 2023-02-24 18:52:00 165.1 cm [facility] Body weight 2023-02-24 18:52:00 55.339 kg [facility] BMI 2023-02-24 18:52:00 20.30 kg/m2 [facility] Systolic blood pressure 2023-01-05 14:04:00 183 mm[Hg] [facility] Diastolic blood pressure 2023-01-05 14:04:00 76 mm[Hg] [facility] Heart rate 2023-01-05 14:03:00 61 /min [facility] Body temperature 2023-01-05 14:03:00 36.67 Denice [facility] Body height 2023-01-05 14:03:00 165.1 cm [facility] Body weight 2023-01-05 14:03:00 54.432 kg [facility] BMI 2023-01-05 14:03:00 19.97 kg/m2 [facility] Oxygen saturation in Arterial blood by Pulse oximetry 2023-01-05 14:03:00 99 /min [facility] Systolic blood pressure 2022-12-24 13:18:00 180 mm[Hg] [facility] Diastolic blood pressure 2022-12-24 13:18:00 74 mm[Hg] [facility] Heart rate 2022-12-24 13:18:00 71 /min [facility] Body height 2022-12-24 13:09:00 162.6 cm [facility] Body weight 2022-12-24 13:09:00 58.06 kg [facility] BMI 2022-12-24 13:09:00 21.97 kg/m2 [facility] Oxygen saturation in Arterial blood by Pulse oximetry 2022-12-24 13:09:00 97 /min [facility] Systolic blood pressure 2022-12-16 18:07:00 179 mm[Hg] [facility] Diastolic blood pressure 2022-12-16 18:07:00 82 mm[Hg] [facility] Heart rate 2022-12-16 18:07:00 64 /min [facility] Body weight 2022-12-16 18:07:00 56.246 kg [facility] BMI 2022-12-16 18:07:00 20.63 kg/m2 [facility] Oxygen saturation in Arterial blood by Pulse oximetry 2022-12-16 18:07:00 97 /min [facility] Systolic blood pressure 2022-11-25 18:19:00 157 mm[Hg] [facility] Diastolic blood pressure 2022-11-25 18:19:00 73 mm[Hg] [facility] Heart rate 2022-11-25 18:18:00 61 /min [facility] Body height 2022-11-25 18:18:00 165.1 cm [facility] Body weight 2022-11-25 18:18:00 57.924 kg [facility] BMI 2022-11-25 18:18:00 21.25 kg/m2 [facility] Oxygen saturation in Arterial blood by Pulse oximetry 2022-11-25 18:18:00 98 /min [facility] Systolic blood pressure 2022-10-25 20:12:00 166 mm[Hg] [facility] Diastolic blood pressure 2022-10-25 20:12:00 71 mm[Hg] [facility] Heart rate 2022-10-25 19:55:00 63 /min [facility] Body height 2022-10-25 19:55:00 165.1 cm [facility] Body weight 2022-10-25 19:55:00 58.469 kg [facility] BMI 2022-10-25 19:55:00 21.45 kg/m2 [facility] Oxygen saturation in Arterial blood by Pulse oximetry 2022-10-25 19:55:00 97 /min [facility] Systolic blood pressure 2022-09-22 19:13:00 188 mm[Hg] [facility] Diastolic blood pressure 2022-09-22 19:13:00 79 mm[Hg] [facility] Heart rate 2022-09-22 19:12:00 71 /min [facility] Body height 2022-09-22 19:12:00 165.1 cm [facility] Body weight 2022-09-22 19:12:00 59.33 kg [facility] BMI 2022-09-22 19:12:00 21.77 kg/m2 [facility] Oxygen saturation in Arterial blood by Pulse oximetry 2022-09-22 19:12:00 98 /min [facility] Systolic blood pressure 2022-06-04 20:17:00 156 mm[Hg] [facility] Diastolic blood pressure 2022-06-04 20:17:00 81 mm[Hg] [facility] Heart rate 2022-06-04 20:09:00 69 /min [facility] Body weight 2022-06-04 20:09:00 60.51 kg [facility] BMI 2022-06-04 20:09:00 22.20 kg/m2 [facility] Oxygen saturation in Arterial blood by Pulse oximetry 2022-06-04 20:09:00 95 /min [facility] Procedures Procedure Date / Time Performed Performing Clinician Source EXTERNAL PROVIDER RECORDS 2023-11-25 06:01:00 Do ctor Unassigned, [place] [facility] CT ABDOMEN PELVIS W CONTRAST 2023-10-05 21:41:00 Wilfred Ramos [facility] HB CREATININE SERUM/BLOOD FOR IMAGING 2023-10-05 21:25:00 Wilfred Ramos [facility] POCT HEMOGLOBIN A1C TEST 2023-09-20 19:37:00 Chano Ruelas [facility] PHYSICIAN CERTIFICATION STATEMENT 2023-04-18 05:01:00 Doctor Unassigned, [place] [facility] - OTHER 2023-03-06 05:01:00 Doctor Alvino quigley, [place] [facility] - [facility] 2023-02-10 05:01:00 Doctor U nassiira, [place] [facility] - OTHER 2023-01-27 05:01:00 Doctor Alvino quigley, [place] [facility] EXTERNAL PROVIDER RECORDS 2023-01-18 05:01:00 Do ctor Unassigned, [place] [facility] EXTERNAL PROVIDER RECORDS 2023-01-05 05:01:00 Do ctor Unassigned, [place] [facility] CONSENT/REFUSAL FOR DIAGNOSIS AND TREATMENT 2022-11-25 17:42:39 Doctor Unassigned, [place] [facility] INSURANCE CORRESPONDENCE 2022-08-09 06:01:00 Doc tor Unassigned, [place] [facility] MEDICAL RELEASE/CLEARANCE FORMS 2022-06-18 05:01:00 Doctor Unassigned, [place] [facility] POCT HEMOGLOBIN A1C TEST 2022-06-04 20:20:00 Jamie Guzmán [facility] Encounters Start Date/Time End Date/Time Encounter Type Admission Type Attending Clinicians Care Facility Care Department Encounter ID Source 2021-08-02 04:31:18 Outpatient JAI OTERO [facility] [id number] [facility] 2021-08-01 18:59:03 Emergency [facility] [id number] [facility] 2024-02-21 00:00:00 2024-02-21 10:29:31 Telephone Richard [facility] 1.2.840.114 350.1.13.10 4.2.7.2.686 [id number] [facility] 2024-02-13 00:00:00 2024-02-13 15:22:02 Refill Richard [facility] [id number] 350.1.13.10 4.2.7.2.686 [id number] [facility] 2024-01-24 10:00:00 2024-01-24 10:00:00 Outpatient STEVEN HERNANDEZ [facility] [id number] [facility] 2024-01-20 13:00:00 2024-01-20 13:00:00 Outpatient STEVEN HERNANDEZ [facility] [id number] [facility] 2024-01-12 13:00:00 2024-01-12 14:16:23 Outpatient R ANJU HANNA [facility] [id number] [facility] 2024-01-12 13:00:00 2024-01-12 14:16:23 Office Visit CyndiAnju [facility] [place] 1.2840.114 350.1.13.10 4.2.7.2.686 [id number] [facility] 2024-01-11 00:00:00 2024-01-11 00:00:00 Nurse Triage Vanessa Colvin [facility] 1..114 350.1.13.10 4.2.7.2.686 [id number] [facility] 2023-12-20 00:00:00 2023-12-20 00:00:00 Telephone Richard Wilfred [facility] [place] 1..114 350.1.13.10 4.2.7.2.686 [id number] [facility] 2023-12-08 00:00:00 2023-12-08 00:00:00 Refill Richard [facility] [place] 1..114 350.1.13.10 4.2.7.2.686 [id number] [facility] 2023-12-01 00:00:00 2023-12-01 00:00:00 Refill Richard [facility] [place]?[facility] 1..114 350.1.13.10 4.2.7.2.686 [id number] [facility] 2023-11-25 00:00:00 2023-11-25 00:00:00 Orders Only Doctor Unassigned, [place] [facility] 1.20.114 350.1.13.10 4.2.7.2.686 [id number] [facility] 2023-11-25 00:00:00 2023-11-25 00:00:00 Telephone Rosio Williamson [facility] 1.2.840.114 350.1.13.10 4.2.7.2.686 [id number] [facility] 2023-11-14 13:00:00 2023-11-14 15:03:56 Outpatient R ROSIO WILLIAMSON [facility] [id number] [facility] 2023-11-14 13:00:00 2023-11-14 15:03:56 Office Visit Rosio Williamson [facility] 1.840.114 350.1.13.10 4.2.7.2.686 [id number] [facility] 2023-10-05 15:02:41 2023-10-05 23:59:00 Hospital Encounter Wilfred Ramos [facility] 1.840.114 350.1.13.10 4.2.7.2.686 [id number] [facility] 2023-10-05 14:15:00 2023-10-05 14:15:00 [facility] 1.2840.114 350.1.13.10 4.2.7.2.686 [id number] [facility] 2023-10-05 14:15:00 2023-10-05 14:13:50 Outpatient R WILFRED RAMOS [facility] [id number] [facility] 2023-09-27 00:00:00 2023-09-27 00:00:00 Letter (Out) Iftikhar Cardiology - Clear [facility] 1.2840.114 350.1.13.10 4.2.7.2.686 [id number] [facility] 2023-09-23 00:00:00 2023-09-23 00:00:00 Patient Secure Msg Doctor Unassigned, [place] [facility] 1.84.114 350.1.13.10 4.2.7.2.686 [id number] [facility] 2023-09-21 13:15:00 2023-09-21 13:30:00 [facility] 1.84.114 350.1.13.10 4.2.7.2.686 [id number] [facility] 2023-09-21 13:15:00 2023-09-21 13:15:00 Outpatient R RICHARD WILFRED [facility] [id number] [facility] 2023-09-20 13:30:00 2023-09-20 14:18:45 Outpatient R [facility] [id number] [facility] 2023-09-20 13:30:00 2023-09-20 14:18:45 [facility] 1.84.114 350.1.13.10 4.2.7.2.686 [id number] [facility] 2023-09-07 00:00:00 2023-09-07 00:00:00 Refill [facility] 1.84.114 350.1.13.10 4.2.7.2.686 [id number] [facility] 2023-08-16 00:00:00 2023-08-16 00:00:00 [facility] 1.2840.114 350.1.13.10 4.2.7.2.686 [id number] [facility] 2023-07-14 00:00:00 2023-07-14 00:00:00 [facility]ill [facility] 1.2840.114 350.1.13.10 4.2.7.2.686 [id number] [facility] 2023-06-18 00:00:00 2023-06-18 00:00:00 Refill Richard [facility] [place] 1.2840.114 350.1.13.10 4.2.7.2.686 [id number] [facility] 2023-05-17 11:00:00 2023-05-17 12:21:30 Outpatient R [facility] [id number] [facility] 2023-05-17 11:00:00 2023-05-17 12:21:30 Office Visit Suraj [facility] [place] 1.840.114 350.1.13.10 4.2.7.2.686 [id number] [facility] 2023-05-17 00:00:00 2023-05-17 00:00:00 [facility] 1.840.114 350.1.13.10 4.2.7.2.686 [id number] [facility] 2023-05-13 00:00:00 2023-05-13 00:00:00 Telephone [facility] 1.840.114 350.1.13.10 4.2.7.2.686 [id number] [facility] 2023-04-30 00:00:00 2023-04-30 00:00:00 Patient Secure Msg Doctor Unassigned, [place] [facility] 1.20.114 350.1.13.10 4.2.7.2.686 [id number] [facility] 2023-04-25 00:00:00 2023-04-25 00:00:00 [facility] 1.84.114 350.1.13.10 4.2.7.2.686 [id number] [facility] 2023-04-20 14:30:00 2023-04-20 16:45:51 Outpatient [facility] [id number] [facility] 2023-04-20 14:30:00 2023-04-20 16:45:51 [facility] 1.84114 350.1.13.10 4.2.7.2.686 [id number] [facility] 2023-04-18 00:00:00 2023-04-18 00:00:00 Orders Only Doctor Unassigned, [place] [facility] 1..114 350.1.13.10 4.2.7.2.686 [id number] [facility] 2023-04-14 00:00:00 2023-04-14 00:00:00 [facility]phone [facility] 1.84.114 350.1.13.10 4.2.7.2.686 [id number] [facility] 2023-04-11 00:00:00 2023-04-11 00:00:00 Refill Richard [facility] [place]?[facility] OFF[facility] BU[facility] 1.2840.114 350.1.13.10 4.2.7.2.686 [id number] [facility] 2023-03-15 13:00:00 2023-03-15 13:15:00 Ribbon Blocker Visit [facility] 1.840.114 350.1.13.10 4.2.7.2.686 [id number] [facility] 2023-03-15 13:00:00 2023-03-15 13:00:00 Outpatient WILFRED PERRY [facility] [id number] [facility] 2023-03-14 00:00:00 2023-03-14 00:00:00 Telephone [facility] 1.840.114 350.1.13.10 4.2.7.2.686 [id number] [facility] 2023-03-11 09:45:00 2023-03-11 10:00:00 Ribbon Blocker Visit Lab, Fernando Sutton [facility] 1.2840.114 350.1.13.10 4.2.7.2.686 [id number] [facility] [facility] 2023-03-11 09:45:00 2023-03-11 09:45:00 Outpatient R WILFRED RAMOS [facility] [id number] [facility] 2023-03-10 14:00:00 2023-03-10 14:15:00 [facility] [place] 1.2840.114 350.1.13.10 4.2.7.2.686 [id number] 044 [id number] [facility] 2023-03-10 14:00:00 2023-03-10 14:00:00 Outpatient R WILFRED RAMOS [facility] [id number] [facility] 2023-03-06 00:00:00 2023-03-06 00:00:00 Orders Only Doctor Unassigned, [place] [facility] 1.2840.114 350.1.13.10 4.2.7.2.686 [id number] [id number] [facility] 2023-03-04 00:00:00 2023-03-04 00:00:00 Refill Richard [facility] OFF[facility] BU[facility] 1.2840.114 350.1.13.10 4.2.7.2.686 [id number] 044 [id number] [facility] 2023-02-24 14:15:00 2023-02-24 14:45:00 Office Visit Richard [facility] OFF[facility] BUILD[facility] 1.20.114 350.1.13.10 4.2.7.2.686 [id number] 044 [id number] [facility] 2023-02-24 14:15:00 2023-02-24 14:15:00 Outpatient WILFRED PERRY [facility] [id number] [facility] 2023-02-12 00:00:00 2023-02-12 00:00:00 Telephone Richard [facility] OFF[facility] BUILD[facility] 1.2840.114 350.1.13.10 4.2.7.2.686 [id number] 044 [id number] [facility] 2023-02-10 00:00:00 2023-02-10 00:00:00 Orders Only Doctor Unassigned, [place] [facility] 1.2840.114 350.1.13.10 4.2.7.2.686 [id number] [id number] [facility] 2023-02-03 00:00:00 2023-02-03 00:00:00 Refill Richard [facility] OFF[facility] 1.2.840.114 350.1.13.10 4.2.7.2.686 [id number] 044 [id number] [facility] 2023-01-27 00:00:00 2023-01-27 00:00:00 Orders Only Doctor Unassigned, [place] [facility] 1.2.840.114 350.1.13.10 4.2.7.2.686 [id number] [id number] [facility] 2023-01-18 00:00:00 2023-01-18 00:00:00 Orders Only Doctor Unassigned, [place] [facility] 1.2.840.114 350.1.13.10 4.2.7.2.686 [id number] [id number] [facility] 2023-01-05 09:00:00 2023-01-05 09:30:00 Office Visit Richard [facility] OFF[facility] BUILD[facility] 1.2840.114 350.1.13.10 4.2.7.2.686 [id number] 044 [id number] [facility] 2023-01-05 09:00:00 2023-01-05 09:00:00 Outpatient R RICHARD WILFRED [facility] [id number] [facility] 2023-01-05 00:00:00 2023-01-05 00:00:00 Orders Only Doctor Unassigned, [place] [facility] 1.2.840.114 350.1.13.10 4.2.7.2.686 [id number] [id number] [facility] 2023-01-05 00:00:00 2023-01-05 00:00:00 Telephone Richard [facility] OFF[facility] BUILD[facility] 1.2.840.114 350.1.13.10 4.2.7.2.686 [id number] 044 [id number] [facility] 2023-01-03 00:00:00 2023-01-03 00:00:00 Telephone Wilfred Ramos [facility] [place]?[facility] 1.84.114 350.1.13.10 4.2.7.2.686 [id number] 044 [id number] [facility] 2022-12-31 00:00:00 2022-12-31 00:00:00 Telephone Wilfred Ramos [facility] [place]?[facility] 1.84.114 350.1.13.10 4.2.7.2.686 [id number] 044 [id number] [facility] 2022-12-29 00:00:00 2022-12-29 00:00:00 Telephone Wilfred Ramos [facility] [place]?[facility] OFF[facility] BU[facility] 1.84.114 350.1.13.10 4.2.7.2.686 [id number] 044 [id number] [facility] 2022-12-24 08:15:00 2022-12-24 11:00:14 Outpatient R LEEROY ALBARRAN [facility] [id number] [facility] 2022-12-24 08:15:00 2022-12-24 11:00:14 [facility] 1.84.114 350.1.13.10 4.2.7.2.686 [id number] [facility] 2022-12-16 13:30:00 2022-12-16 14:38:40 Outpatient R WILFRED RAMOS [facility] [id number] [facility] 2022-12-16 13:30:00 2022-12-16 14:38:40 Office Visit Richard [facility] [place]?[facility] OFF[facility] BU[facility] 1.84.114 350.1.13.10 4.2.7.2.686 [id number] 044 [id number] [facility] 2022-12-16 00:00:00 2022-12-16 00:00:00 Refill Wilfred Ramos [facility] [place]?[facility] 1.84.114 350.1.13.10 4.2.7.2.686 [id number] 044 [id number] [facility] 2022-11-25 12:15:00 2022-11-25 12:30:00 Office Visit Wilfred Ramos [facility] [place] 1..114 350.1.13.10 4.2.7.2.686 [id number] 044 [id number] [facility] 2022-11-25 12:15:00 2022-11-25 12:15:00 Outpatient WILFRED PERRY [facility] [id number] [facility] 2022-11-25 00:00:00 2022-11-25 00:00:00 Orders Only Doctor Unassigned, [place] [facility] 1..114 350.1.13.10 4.2.7.2.686 [id number] [id number] [facility] 2022-10-25 14:15:00 2022-10-25 14:30:00 Office Visit Wilfred Ramos [facility] [place]?[facility] OFF[facility] BU[facility] 1.284.114 350.1.13.10 4.2.7.2.686 [id number] 044 [id number] [facility] 2022-10-25 14:15:00 2022-10-25 14:15:00 Outpatient WILFRED PERRY [facility] [id number] [facility] 2022-10-25 00:00:00 2022-10-25 00:00:00 [facility] [place] 1.2840.114 350.1.13.10 4.2.7.2.686 [id number] 044 [id number] [facility] 2022-09-29 00:00:00 2022-09-29 00:00:00 [facility] 1.2840.114 350.1.13.10 4.2.7.2.686 [id number] 044 [id number] [facility] 2022-09-22 14:12:09 2022-09-22 23:59:00 Outpatient R WILFRED RAMOS [facility] [id number] [facility] 2022-09-22 13:45:00 2022-09-22 14:04:05 Ribbon Blocker Visit Lab, Fernando Coto Richard [facility] [place]?[facility] MED[facility] OFF[facility] BUILDING 1.0114 350.1.13.10 4.2.7.2.686 [id number] [facility] 2022-09-22 13:15:00 2022-09-22 13:30:00 Office Visit Wilfred Ramos [facility] [place]?[facility] MED[facility] OFFICE BUILDING 1.2.114 350.1.13.10 4.2.7.2.686 [id number] 044 [id number] [facility] 2022-09-17 00:00:00 2022-09-17 00:00:00 Patient Secure Msg Doctor Unassigned, [place] [facility] [place]?[facility] MED[facility] OFFICE BUILDING 1.20.114 350.1.13.10 4.2.7.2.686 [id number] 044 [id number] [facility] 2022-08-20 00:00:00 2022-08-20 00:00:00 [facility]ill [facility] 1.2.114 350.1.13.10 4.2.7.2.686 [id number] 044 [id number] [facility] 2022-08-09 00:00:00 2022-08-09 00:00:00 Orders Only Doctor Unassigned, [place] [facility] 1.2840.114 350.1.13.10 4.2.7.2.686 [id number] [facility] 2022-07-06 00:00:00 2022-07-06 00:00:00 Wilfred Flores [facility] MED[facility] OFFICE BUILDING 1.2840.114 350.1.13.10 4.2.7.2.686 [id number] 044 [id number] [facility] 2022-06-24 00:00:00 2022-06-24 00:00:00 Telephone Ramirez [facility] MED[facility] OFFICE BUILDING 1.840.114 350.1.13.10 4.2.7.2.686 [id number] [facility] 2022-06-21 00:00:00 2022-06-21 00:00:00 Telephone Ramirez Jamie [facility] MED[facility] OFFICE BUILDING 1.2840.114 350.1.13.10 4.2.7.2.686 [id number] [facility] 2022-06-18 00:00:00 2022-06-18 00:00:00 Orders Only Doctor Unassigned, [place] [facility] 1.2840.114 350.1.13.10 4.2.7.2.686 [id number] [facility] 2022-06-15 00:00:00 2022-06-15 00:00:00 Telephone Ramirez [facility] MED[facility] OFFICE BUILDING 1.2840.114 350.1.13.10 4.2.7.2.686 [id number] [facility] 2022-06-04 15:30:00 2022-06-04 15:58:45 Office Visit Jamie Guzmán [facility] [place]?[facility] 1.2.840.114 350.1.13.10 4.2.7.2.686 [id number] [facility] 2022-06-04 15:30:00 2022-06-04 15:58:45 Outpatient R JAMIE GUZMÁN [facility] [id number] [facility] 2022-06-04 15:30:00 2022-06-04 15:30:00 Outpatient R JAMIE GUZMÁN [facility] [id number] [facility] 2022-05-14 00:00:00 2022-05-14 00:00:00 [facility] 1.2.840.114 350.1.13.10 4.2.7.2.686 [id number] 044 [id number] [facility] 2022-03-02 00:00:00 2022-03-02 00:00:00 Refill Richard [facility] [place]?[facility] MED[facility] OFF[facility] BUILDING 1.2.840.114 350.1.13.10 4.2.7.2.686 [id number] 044 [id number] [facility] 2022-02-25 12:30:00 2022-02-25 12:45:00 [facility] [place] 1.2.840.114 350.1.13.10 4.2.7.2.686 [id number] 044 [id number] [facility] 2022-02-25 12:30:00 2022-02-25 12:30:00 [facility] [id number] [facility] 2022-02-17 00:00:2022-02-17 00:00:00 [facility] [place] 1..114 350.1.13.10 4.2.7.2.686 [id number] 044 [id number] [facility] 2022-01-26 14:30:00 2022-01-26 14:56:48 [facility] [id number] [facility] 2022-01-26 14:30:00 2022-01-26 14:56:48 Office Visit Katia [facility] [place]?[facility] 1..114 350.1.13.10 4.2.7.2.686 [id number] [facility] 2022-01-15 00:00:00 2022-01-15 00:00:00 Refill Richard [facility] OFFICE BUILDING ONE 1..114 350.1.13.10 4.2.7.2.686 [id number] 044 [id number] [facility] 2022-01-15 00:00:00 2022-01-15 00:00:00 Refill Richard [facility] OFFICE BUILDING ONE 1..114 350.1.13.10 4.2.7.2.686 [id number] 044 [id number] [facility] 2022-01-15 00:00:00 2022-01-15 00:00:00 Refill Richard [facility] OFFICE BUILDING ONE 1..114 350.1.13.10 4.2.7.2.686 [id number] 044 [id number] [facility] 2022-01-07 00:00:00 2022-01-07 00:00:00 Refill Richard [facility] [place]?[facility] 1.2.840.114 350.1.13.10 4.2.7.2.686 [id number] 044 [id number] [facility] 2021-11-30 13:00:00 2021-11-30 13:00:00 Outpatient R WILFRED RAMOS [facility] [id number] [facility] 2021-10-16 13:30:00 2021-10-16 14:32:38 Outpatient JAMIE ADAMS [facility] [id number] [facility] 2021-10-16 13:30:00 2021-10-16 14:32:38 Office Visit Marcia Montalvo Kevin [facility] [place]?[facility] 1.114 350.1.13.10 4.2.7.2.686 [id number] [facility] 2021-10-16 00:00:00 2021-10-16 00:00:00 Orders Only Doctor Unassigned, [place] [facility] 1.114 350.1.13.10 4.2.7.2.686 [id number] [id number] [facility] 2021-10-12 00:00:00 2021-10-12 00:00:00 Refmargo Ramos [facility] OFFICE BUILDING ONE 1.114 350.1.13.10 4.2.7.2.686 [id number] 044 [id number] [facility] 2021-10-12 00:00:00 2021-10-12 00:00:00 Dora Wright [facility] 1.114 350.1.13.10 4.2.7.2.686 [id number] [id number] [facility] 2021-09-08 00:00:00 2021-09-08 00:00:00 Refmargo Ramos [facility] OFFICE BUILDING ONE 1.2.840.114 350.1.13.10 4.2.7.2.686 [id number] 044 [id number] [facility] 2021-08-07 00:00:00 2021-08-07 00:00:00 Refill Richard [facility] OFFICE BUILDING ONE 1.840.114 350.1.13.10 4.2.7.2.686 [id number] 044 [id number] [facility] 2021-07-04 00:00:00 2021-07-04 00:00:00 Refill Richard [facility] Office Building One 1.0.114 350.1.13.10 4.2.7.2.686 [id number] 044 [id number] [facility] 2021-07-01 00:00:00 2021-07-01 00:00:00 Refill Richard [facility] Office Building One 1..114 350.1.13.10 4.2.7.2.686 [id number] 044 [id number] [facility] 2021-04-30 14:15:00 2021-04-30 14:15:00 Outpatient R WILFRED RAMOS [facility] [id number] [facility] 2021-04-30 13:52:17 2021-04-30 14:07:17 Office Visit Richard Wilfred [facility] Office Building One 1..114 350.1.13.10 4.2.7.2.686 [id number] 044 [id number] [facility] 2021-04-28 00:00:00 2021-04-28 00:00:00 Refill Richard [facility] Building One 1..114 350.1.13.10 4.2.7.2.686 [id number] 044 [id number] [facility] 2021-03-31 00:00:00 2021-03-31 00:00:00 Refill Richard [facility] One 1.0.114 350.1.13.10 4.2.7.2.686 [id number] 044 [id number] [facility] 2021-03-16 00:00:00 2021-03-16 00:00:00 Refill Richard [facility] Building One 1.0.114 350.1.13.10 4.2.7.2.686 [id number] 044 [id number] [facility] 2021-02-23 13:15:00 2021-02-23 13:15:00 Outpatient R [facility]OS [facility] [id number] [facility] 2021-02-11 00:00:00 2021-02-11 00:00:00 Refill Richard [facility] One 1.0.114 350.1.13.10 4.2.7.2.686 [id number] 044 [id number] [facility] 2021-01-29 00:00:00 2021-01-29 00:00:00 Telephone Richard [facility] One 1..114 350.1.13.10 4.2.7.2.686 [id number] 044 [id number] [facility] 2021-01-23 00:00:00 2021-01-23 00:00:00 Orders Only Doctor Unassigned, [place] [facility] 1.0.114 350.1.13.10 4.2.7.2.686 [id number] [id number] [facility] 2021-01-21 00:00:00 2021-01-21 00:00:00 Refill Richard [facility] One 1..114 350.1.13.10 4.2.7.2.686 [id number] 044 [id number] [facility] 2021-01-21 00:00:00 2021-01-21 00:00:00 Telephone RichardAl[facility]zaWilfred [facility] Kisha Ratliff [facility] Office Building One 1..114 350.1.13.10 4.2.7.2.686 [id number] 044 [id number] [facility] 2021-01-21 00:00:00 2021-01-21 00:00:00 Orders Only Doctor Unassigned, [place] [facility] 1..114 350.1.13.10 4.2.7.2.686 [id number] [id number] [facility] 2021-01-19 15:00:00 2021-01-19 15:00:00 Outpatient PERLA YEH HOWARD [facility] [id number] [facility] 2021-01-15 00:00:00 2021-01-15 00:00:00 Orders Only Doctor Unassigned, [place] [facility] 1..114 350.1.13.10 4.2.7.2.686 [id number] [facility] 2021-01-13 13:40:00 2021-01-13 13:40:00 Outpatient PERLA YEH HOWARD [facility] [id number] [facility] 2021-01-06 00:00:00 2021-01-06 00:00:00 Orders Only Doctor Unassigned, [place] [facility] 1..114 350.1.13.10 4.2.7.2.686 [id number] 009 [id number] [facility] 2020-12-26 00:00:00 2020-12-26 00:00:00 Orders Only Doctor Unassigned, [place] [facility] 1.0.114 350.1.13.10 4.2.7.2.686 [id number] [id number] [facility] 2020-12-17 08:10:00 2020-12-17 10:43:00 Hospital Encounter Minervanoahshaynaerika sanchezJai [facility] 1.2.840.114 350.1.13.10 4.2.7.2.686 [id number] [facility] 2020-12-16 13:23:54 2020-12-16 13:38:54 Laboratory Only Only, Adc Test SandeepJai king [facility] 1.2840.114 350.1.13.10 4.2.7.2.686 [id number] [facility] 2020-12-16 13:00:00 2020-12-16 13:00:00 Outpatient R JAI OTERO [facility] [id number] [facility] 2020-12-16 00:00:00 2020-12-16 00:00:00 Orders Only Doctor Unassigned, [place] [facility] 1.2840.114 350.1.13.10 4.2.7.2.686 [id number] [facility] 2020-12-16 00:00:00 2020-12-16 00:00:00 Wilfred Flores [facility] Office Building One 1.840.114 350.1.13.10 4.2.7.2.686 [id number] [id number] [facility] 2020-12-10 00:00:00 2020-12-10 00:00:00 Patient Outreach Damien Quintanilla [facility] 1.2840.114 350.1.13.10 4.2.7.2.686 [id number] [facility] 2020-12-03 00:00:00 2020-12-03 00:00:00 Orders Only Doctor Unassigned, [place] [facility] 1.0.114 350.1.13.10 4.2.7.2.686 [id number] [facility] 2020-12-02 00:00:00 2020-12-02 00:00:00 Telephone Richard [facility] One ..114 350.1.13.10 4.2.7.2.686 [id number] 044 [id number] [facility] 2020-11-27 12:00:00 2020-11-27 12:00:00 Outpatient R WILFRED RAMOS [facility] [id number] [facility] 2020-11-27 00:00:00 2020-11-27 00:00:00 Outpatient [facility] [id number] [facility] 2020-11-27 00:00:00 2020-11-27 00:00:00 Patient Secure Msg Ramos, [facility] One ..114 350.1.13.10 4.2.7.2.686 [id number] 044 [id number] [facility] 2020-11-27 00:00:00 2020-11-27 00:00:00 Orders Only Doctor Unassigned, [place] [facility] ..114 350.1.13.10 4.2.7.2.686 [id number] 009 [id number] [facility] 2020-11-26 00:00:00 2020-11-26 00:00:00 Telephone Ramos Wilfred [facility] Office Building One ..114 350.1.13.10 4.2.7.2.686 [id number] 044 [id number] [facility] 2020-11-24 00:00:00 2020-11-24 00:00:00 Telephone Ramos [facility] One 1.0.114 350.1.13.10 4.2.7.2.686 [id number] 044 [id number] [facility] 2020-11-23 00:00:00 2020-11-23 00:00:00 Orders Only Doctor Unassigned, [place] [facility] 1.840.114 350.1.13.10 4.2.7.2.686 [id number] 009 [id number] [facility] 2020-11-21 11:56:32 2020-11-21 12:39:07 Office Visit Ramos [facility] 1.84.114 350.1.13.10 4.2.7.2.686 [id number] [id number] [facility] 2020-11-21 12:30:00 2020-11-21 12:30:00 Outpatient WILFRED PERRY [facility] [id number] [facility] 2020-11-21 00:00:00 2020-11-21 00:00:00 Telephone Richard Wilfred [facility] Building One 1.84.114 350.1.13.10 4.2.7.2.686 [id number] 044 [id number] [facility] 2020-11-21 00:00:00 2020-11-21 00:00:00 Orders Only Doctor Unassigned, [place] [facility] 1.84.114 350.1.13.10 4.2.7.2.686 [id number] [facility] 2020-11-20 14:45:00 2020-11-20 14:45:00 Outpatient WIFLRED PERRY [facility] [id number] [facility] 2020-11-17 14:00:00 2020-11-17 14:00:00 Outpatient WILFRED PERRY [facility] [id number] [facility] 2020-11-13 12:00:00 2020-11-13 12:00:00 Outpatient R WILFRED RAMOS [facility] [id number] [facility] 2020-10-30 12:32:25 2020-10-30 12:47:25 [facility] 1.840.114 350.1.13.10 4.2.7.2.686 [id number] [facility] 2020-10-30 12:30:00 2020-10-30 12:30:00 Outpatient R WILFRED RAMOS [facility] [id number] [facility] 2020-10-30 00:00:00 2020-10-30 00:00:00 Letter (Out) Richard [facility] 1.0.114 350.1.13.10 4.2.7.2.686 [id number] 044 [id number] [facility] 2020-10-27 00:00:00 2020-10-27 00:00:00 Transition of Care [address] 1.840.114 350.1.13.10 4.2.7.2.686 [id number] [facility] 2020-10-24 16:23:00 2020-10-25 16:12:00 Emergency Aidee Lees Yaman [facility] 1.840.114 350.1.13.10 4.2.7.2.686 [id number] [facility] 2020-10-24 00:00:00 2020-10-24 00:00:00 Telephone [facility] 1..114 350.1.13.10 4.2.7.2.686 [id number] [facility] 2020-10-23 13:17:01 2020-10-23 23:59:00 Hospital Encounter Wilfred Raoms [facility] 1.2840.114 350.1.13.10 4.2.7.2.686 [id number] [facility] 2020-10-23 00:00:00 2020-10-23 00:00:00 Outpatient WILFRED PERRY [facility] [id number] [facility] 2020-10-22 00:00:00 2020-10-22 00:00:00 Telephone [facility] 1.840.114 350.1.13.10 4.2.7.2.686 [id number] [facility] 2020-10-21 16:00:05 2020-10-21 23:59:00 Hospital Encounter Wilfred Ramos [facility] 1.2840.114 350.1.13.10 4.2.7.2.686 [id number] [facility] 2020-10-21 00:00:00 2020-10-21 00:00:00 Outpatient WILFRED PERRY [facility] [id number] [facility] 2020-10-21 00:00:00 2020-10-21 00:00:00 Telephone [facility] 1.0.114 350.1.13.10 4.2.7.2.686 [id number] [facility] 2020-10-19 00:00:00 2020-10-19 00:00:[address] [facility] 1.2840.114 350.1.13.10 4.2.7.2.686 [id number] [facility] 2020-10-17 11:23:19 2020-10-17 11:43:19 [facility] Visit Lab, [facility] 1..114 350.1.13.10 4.2.7.2.686 [id number] [facility] 2020-10-17 11:40:00 2020-10-17 11:40:00 Outpatient R ROBERTO HURST [facility] [id number] [facility] 2020-10-17 00:00:00 2020-10-17 00:00:00 Telephone [facility] 1..114 350.1.13.10 4.2.7.2.686 [id number] [facility] 2020-10-17 00:00:00 2020-10-17 00:00:00 Telephone Roberto Hurst [facility] One 1..114 350.1.13.10 4.2.7.2.686 [id number] 044 [id number] [facility] 2020-10-16 14:36:44 2020-10-16 15:13:20 Office Visit Wilfred Ramos [facility] One 1.114 350.1.13.10 4.2.7.2.686 [id number] 044 [id number] [facility] 2020-10-16 14:45:00 2020-10-16 14:45:00 Outpatient R WILFRED RAMOS [facility] [id number] [facility] 2020-09-17 00:00:00 2020-09-17 00:00:00 Refill Richard [facility] One 1..114 350.1.13.10 4.2.7.2.686 [id number] 044 [id number] [facility] 2020-09-10 15:00:00 2020-09-10 15:00:00 Outpatient Canelo WILFRED RAMOS [facility] [id number] [facility] 2020-09-05 00:00:00 2020-09-05 00:00:00 Francisco Ramos [facility] One 1.84.114 350.1.13.10 4.2.7.2.686 [id number] 044 [id number] [facility] 2020-08-15 16:03:55 2020-08-15 16:18:55 Ribbon Blocker Visit Pob, Adc Lab Main Jamie Guzmán [facility] Building 1..114 350.1.13.10 4.2.7.2.686 [id number] [facility] 2020-08-15 15:45:00 2020-08-15 15:45:00 Outpatient JAMIE ADAMS [facility] [id number] [facility] 2020-08-12 00:00:00 2020-08-12 00:00:00 Francisco Ramos [facility] One 1..114 350.1.13.10 4.2.7.2.686 [id number] [id number] [facility] 2020-08-01 14:28:15 2020-08-01 16:57:50 Office Visit Jamie Guzmán [facility] Building 1..114 350.1.13.10 4.2.7.2.686 [id number] [facility] 2020-08-01 14:30:00 2020-08-01 14:30:00 Outpatient JAMIE ADAMS [facility] [id number] [facility] 2020-08-01 00:00:00 2020-08-01 00:00:00 Orders Only Doctor Unassigned, [place] [facility] 1..114 350.1.13.10 4.2.7.2.686 [id number] [facility] 2020-05-23 00:00:00 2020-05-23 00:00:00 RefWilfred Keita [facility] One 1.2.840.114 350.1.13.10 4.2.7.2.686 [id number] 044 [id number] [facility] 2020-05-11 00:00:00 2020-05-11 00:00:00 Refill Wilfred Ramos [facility] One 1.2.840.114 350.1.13.10 4.2.7.2.686 [id number] 044 [id number] [facility] 2020-04-17 00:00:00 2020-04-17 00:00:00 Telephone Wilfred Ramos [facility] 1.2.840.114 350.1.13.10 4.2.7.2.686 [id number] 044 [id number] [facility] 2020-04-16 14:15:00 2020-04-16 23:59:00 Hospital Encounter Wilfred Ramos [facility] 1.2.840.114 350.1.13.10 4.2.7.2.686 [id number] [facility] 2020-04-16 13:28:41 2020-04-16 13:43:41 Office Visit Wilfred Ramos [facility] 1.2.840.114 350.1.13.10 4.2.7.2.686 [id number] 044 [id number] [facility] 2020-04-16 13:30:00 2020-04-16 13:30:00 Outpatient R WILFRED RAMOS [facility] [id number] [facility] 2020-04-16 00:00:00 2020-04-16 00:00:00 Orders Only Doctor Unassigned, [place] [facility] 1.2.840.114 350.1.13.10 4.2.7.2.686 [id number] [facility] 2020-04-14 00:00:00 2020-04-14 00:00:00 Refmargo BarGuzmán, Jamie Amaya [facility] Building 1.2.840.114 350.1.13.10 4.2.7.2.686 [id number] [facility] 2020-02-19 00:00:00 2020-02-19 00:00:00 Telephone Wilfred Ramos [facility] One 1.2.840.114 350.1.13.10 4.2.7.2.686 [id number] [id number] [facility] 2020-02-18 00:00:00 2020-02-18 00:00:00 Refill Jamie Guzmán [facility] Building 1.2.840.114 350.1.13.10 4.2.7.2.686 [id number] [facility] 2020-02-11 12:41:00 2020-02-11 13:11:00 Office Visit Wilfred Ramos [facility] Building 1.2.840.114 350.1.13.10 4.2.7.2.686 [id number] [id number] [facility] 2020-02-11 12:30:00 2020-02-11 12:30:00 Outpatient R WILFRED RAMOS [facility] [id number] [facility] 2020-02-11 00:00:00 2020-02-11 00:00:00 [facility] 1.2.840.114 350.1.13.10 4.2.7.2.686 [id number] 044 [id number] [facility] 2020-02-05 00:00:00 2020-02-05 00:00:00 Telephone Wilfred Ramos [facility] One 1..840.114 350.1.13.10 4.2.7.2.686 [id number] 044 [id number] [facility] 2020-01-30 15:00:00 2020-01-30 15:00:00 Outpatient R NYLARITA ROSIO [facility] [id number] [facility] 2020-01-30 14:14:49 2020-01-30 14:29:49 Telemedici ne Visit Rosio Williamson [facility] Building 1..840.114 350.1.13.10 4.2.7.2.686 [id number] 044 [id number] [facility] 2020-01-25 09:39:29 2020-01-25 14:29:43 Telemedici ne Visit Jamie Guzmán Monique [facility] Building 1.840.114 350.1.13.10 4.2.7.2.686 [id number] [facility] 2020-01-25 13:30:00 2020-01-25 13:30:00 Outpatient R JAMIE GUZMÁN [facility] [id number] [facility] 2020-01-03 00:00:00 2020-01-03 00:00:00 Jamie Wright [facility] Building 1..840.114 350.1.13.10 4.2.7.2.686 [id number] [facility] 2019-12-31 00:00:00 2019-12-31 00:00:00 Jamie Wright Monique [facility] Building 1..840.114 350.1.13.10 4.2.7.2.686 [id number] [facility] 2019-11-13 00:00:00 2019-11-13 00:00:00 Wilfred Flores [facility] One 1.2.840.114 350.1.13.10 4.2.7.2.686 [id number] 044 [id number] [facility] 2019-05-23 00:00:00 2019-05-23 00:00:00 Francisco Ramos Wilfred [facility] One 1.2.840.114 350.1.13.10 4.2.7.2.686 [id number] 044 [id number] [facility] 2019-05-17 00:00:00 2019-05-17 00:00:00 Telephone Jamie Guzmán [facility] Building 1.2.840.114 350.1.13.10 4.2.7.2.686 [id number] [facility] Results Test Description Test Time Test [...] at the origin of SMA and JERROD. [facility] Hemoglobin A1C Urpa3370-12-62 19:37:00* Test Item Value Reference Range Interpretation Comme nts POCT HBA1C (test code = 4548-4) 10.5 % 4-6 A Lab Interpretation (test cod e = 93645-3) Abnormal [facility] Hemoglobin A1C Wxof4546-85-00 19:37:00* Test Item Value Reference Range Interpretation Comme nts POCT HBA1C (test code = 4548-4) 10.5 % 4-6 A Lab Interpretation (test cod e = 85154-2) Abnormal [facility] HEMOGLOBIN A1C QQGC5905-92-27 20:23:00* Test Item Value Reference Range Interpretation Comme nts POCT HBA1C (test code = 4548-4) 9.5 % 4-6 A Lab Interpretation (test cod e = 18658-0) Abnormal [facility] HEMOGLOBIN A1C OMAB5102-33-98 20:23:00* Test Item Value Reference Range Interpretation Comme nts POCT HBA1C (test code = 4548-4) 9.5 % 4-6 A Lab Interpretation (test cod e = 52207-8) Abnormal [facility] Notes Date/Time Note Provider Source 2024-02-21 10:26:41 8927-66-31O97:26:41 Received radiology report scanned into pts chart and placed in providers basket. 64995-3Jeqbglydq encounter XjffLG2010-45-32O33:28:45Telephone encounter NoteTXT1.2.840.752511.1.13.104.2.7 .2.683943|[id number] for patient aofd19976-0LatmRQHICDCQYBAGixuxhbu d C-CDA narrative gziv226599267Vdogjg [address] MofxCgcgqvzpdHxxyunemaSGYI91653632 12PSIUMAUAMTOYRXVDQPXJXQ3493-76-67 T10:28:451.2.840.097209.1.72.3.15| 1.2.840.537044.1.13.104.2.7.2.7278 [id number] Rubi Mackey [facility] 2024-02-13 14:30:57 5767-44-03G13:30:57 Images from the original note were not included.Requested RenewalsName from pharmacy: HYDROCO/APAP 7.5-32 TAB MALL 7.5-325MWill file in chart as: HYDROCODONE-ACETAMINOPHEN 7.5-325 mg per tabletSig: TAKE ONE TABLET BY MOUTH EVERY SIX HOURS NEEDED FOR PAIN INDICATIONS: CHRONIC PAINimportant Maximum MME cannot be calculated for this prescription. Enter discrete sig details to calculate maximum MME.Disp: 120 tablet Refills: 0Start: 02/13/2024Earliest Fill Date: 02/13/2024lass: eRXNon-formulary For: Acute bilateral low back pain with right-sided sciaticaLast ordered: 2 months ago (12/01/2023) by Kendra Mcgee refill: 12/08/2023x #: [id number] Substance Nqkxcp9002/13/2024 02:18 PMProtocol Details Valid encounter within last 3 monthsPain agreement on fileThis refill cannot be delegatedTo be filled at: [place], [place] - [address] [facility] VisitsDate Type Provider Dept01/12/24 Office Visit Anju Hanna PA [facility]11/14/23 Office Visit Rosio Williamson MD [facility]10/05/23 Office Visit Wilfred Ramos MD [facility]09/21/23 Office Visit Wilfred Ramos MD [facility]04/20/23 Office Visit Wilfred Ramos MD [facility]03/10/23 Office Visit Wilfred Ramos MD [facility]02/24/23 Office Visit Wilfred Ramos MD [facility]01/05/23 Office Visit Wilfred Ramos MD [facility]12/16/22 Office Visit Wilfred Ramos MD [facility]11/25/22 Office Visit Wilfred Ramos MD [facility] F[facility] MedShowing recent visits within past 540 days with a meds authorizing provider and meeting all other requirementsFuture AppointmentsDate Type Provider Dept03/15/24 Appointment Wilfred Ramos MD [facility] F[facility] MedShowing future appointments within next 150 days with a meds authorizing provider and meeting all other requirements 91163-3Hcyfatzsk encounter KlvyKH3628-00-20E23:31:07Telephone encounter NoteTXT1.2.840.029165.1.13.104.2.7 .2.390030|[id number] for patient zzws31269-0GfbvVTJXXXELBYAEddidjce d C-CDA narrative text[address] SxnpRqpvmscixEbbzmyhsfUBTG68328749 73AEVQLQQYOCAEUQMUUGUWRI3214-77-15 T14:31:071.2.840.404787.1.72.3.15| 1.2.840.240574.1.13.104.2.7.2.7278 [id number] [facility] 2024-01-11 12:33:00 2957-81-22Q53:33:00 Regarding: dizzy, blurred vision, pain and numbness in feet----- Message from Damaris Henry sent at 01/11/2024 12:32 PM CDT -----Kierra Sweeney is a 88 year old female 78125-2Hrqoijvxv encounter CpexZL3896-13-97F94:33:03Telephone encounter NoteTXT1.2.840.227569.1.13.104.2.7 .2.854660|[id number] for patient cffb05965-4SoxmSKAMKVHDFRFJavmlubu d C-CDA narrative [id number] Burk RNUT[facility] - [address] SdcxDmhbyfobzQxqwnfykkGQQV99866979 20YUUGEDOUEBJSRMLLCDSCZC4502-94-23 T12:33:031.2.840.931869.1.72.3.15| 1.2.840.525888.1.13.104.2.7.2.7278 [id number] Vanessa Colvin RN [facility] 2024-01-11 12:33:00 5582-13-15I20:33:00 Adult Triage AssessmentLast Clinic Visit: 11/14/23 [facility] DiverticulitisPrimary Symptom: pain and numbness in feetOnset / Duration: chronic, ongoing but worse since last nightLocation / Description: had a false fire alarm and caused blood pressure to go up and then this morning was feeling dizzy and blurred vision due to low BG. After drinking orange juice she is feeling better but her legs continue to hurt more than usual.Pain / Severity: 8/10 - both legs from toes to just above knees, chronic and ongoing but worse todayAssociated Symptoms: dizziness this morning but not current, blurred vision (normal for patient). B at 0800, B at noon - states she is feeling better in regards to her BG.Fever / Method: DeniedHydration: Drinking water all day long. Denied difficulty urinating.Treatment so far: moving around and walking, massageEffect on ADL's: Some changeLMP: N/APre-existing condition / Immunocompromised: HTN, T2DM, colitis, NeuropathyReason for Disposition[1] Numbness or tingling in one or both feet AND [2] is a chronic symptom (recurrent or ongoing AND present > 4 weeks)Protocols used: Neurologic Llhkswq-CSJSW-AUNhzy made with PCP clinic for tomorrow due to increased neuropathy pain. Call back advice given, patient V/U.DICK Alarcon, RNUNC Health Southeastern Center 32745-4Qtnpjepmq encounter TexwNK8952-54-83A06:56:59Telephone encounter NoteTXT1.2.840.484364.1.13.104.2.7 .2.088334|[id number] for patient nzgi94205-4TpkgBLBZYRJRFBUOyebvjzs d C-CDA narrative [address]TXTX[address] 61PQLCFBHUQJYKJZJUQRBRCN7444-25-72 T12:56:591.2.840.617370.1.72.3.15| 1.2.840.727993.1.13.104.2.7.2.7278 [id number] [facility] 2023-12-22 09:00:02 3279-04-25W07:00:02 Attempted to contact patient. No answer. Left message to call back.Kierra Sweeney (Minaya: [phone])ARMANDO Help? Call us at Statussent iconSent to Plan todayDrugHYDROcodone-Acetaminophen 7.5-325MG tabletsePA maple grove hospitaloFormWellCare Medicare Electronic Prior Authorization Request Form (2016 NCPDP) 90748-9Xtnzygxhv encounter YzpvXO9661-93-88W18:00:10Telephone encounter NoteTXT1.2.840.227605.1.13.104.2.7 .2.540617|[id number] for patient trac79816-5VnmmADUYDAZFVHKCiztwlmf d C-CDA narrative [address]TXTX[address] 54SOZMEUIVALDRNQKUJOHRNH8542-84-64 T09:00:101.2.840.480327.1.72.3.15| 1.2.840.250631.1.13.104.2.7.2.7278 [id number] [facility] 2023-12-20 16:41:56 1827-42-91Q07:41:56 Kirera Sweeney is a 88 year old female whose daughter is calling because HYDROcodone-acetaminophen 7.5-325 mg per tablet requires a prior authorization for insurance. The pharmacy has told the pt's daughter that they have faxed the PA to the clinic.Please advise.[place], [place] - [address] [facility] [address]Ysqfd: [phone] Elxpnmqcqemwat signed by Melissa Patel at 12/20/2023 4:44 PM GHF45438-1Ndvdqnrmi encounter UcxaIT0169-55-95D77:44:41Telephone encounter NoteTXT1.2.840.489123.1.13.104.2.7 .2.571259|[id number] for patient ipig57364-9SqtnJERBYHJMLRHKlevvror d C-CDA narrative xrek857030653Gmna Jrab[address] IjhzUsoxkvsfcLkdkuvavqENHC19651294 58IZPTXPPGGKERBURQQVCKJS0348-47-75 T16:44:411.2.840.807953.1.72.3.15| 1.2.840.032996.1.13.104.2.7.2.7278 [id number] Melissa Patel [facility] 2023-12-08 16:08:54 5896-35-34L11:08:54 Last Refilled:lisinopriL 20 mg tablet 90 tablet 0 09/21/2023 -- --Sig: Take 1 tablet by mouth in the morning.Sent to pharmacy as: lisinopriL 20 mg tablet (PRINIVIL,ZESTRIL)Class: eRXRoute: OralOrder: [id number]/Time Signed: 09/21/2023 13:12E-Prescribing Status: Receipt confirmed by pharmacy (09/21/2023 1:15 PM [employer])Recent VisitsDate Type Provider Dept11/14/23 Office Visit Rosio Williamson MD [facility]10/05/23 Office Visit Wilfred Ramos MD [facility]09/21/23 Office Visit Wilfred Ramos MD [facility]04/20/23 Office Visit Wilfred Ramos MD [facility]03/10/23 Office Visit Wilfred Ramos MD [facility]02/24/23 Office Visit Wilfred Ramos MD [facility]01/05/23 Office Visit Wilfred Ramos MD [facility]12/16/22 Office Visit Wilfred Ramos MD [facility]11/25/22 Office Visit Wilfred Ramos MD [facility]10/25/22 Office Visit Wilfred Ramos MD [facility] Fam MedShowing recent visits within past 540 days with a meds authorizing provider and meeting all other requirementsFuture AppointmentsNo visits were found meeting these conditions.Showing future appointments within next 150 days with a meds authorizing provider and meeting all other requirements 48711-9Bjxsrufhv encounter NthpDW7343-18-07S80:10:17Telephone encounter NoteTXT1.2.840.712474.1.13.104.2.7 .2.993328|[id number] for patient nddx64968-8GupnYRNSLLIIVXCFwcavuyo d C-CDA narrative xpyg126218074Cjigjj Myers[address] SsawGuhqzvegzLbnrxliswPWTO82226140 34TGNUZDRELOKBXEMQMZWCSA4054-66-36 T16:10:171.2.840.920123.1.72.3.15| 1.2.840.495005.1.13.104.2.7.2.7278 [id number] Alivia Barriga [facility] 2023-12-01 09:45:20 9059-61-75T47:45:20 Images from the original note were not included.Notes: 11/22/22[facility] [place] [place] [facility] [address]: Eyvfnu VisitsDate Type Provider Dept11/14/23 Office Visit Rosio Williamson MD [facility]10/05/23 Office Visit Wilfred Ramos MD [facility]09/21/23 Office Visit Wilfred Ramos MD [facility]04/20/23 Office Visit Wilfred Ramos MD [facility]03/10/23 Office Visit Wilfred Ramos MD [facility]02/24/23 Office Visit Wilfred Ramos MD [facility]01/05/23 Office Visit Wilfred Ramos MD [facility]12/16/22 Office Visit Wilfred Ramos MD [facility]11/25/22 Office Visit Wilfred Ramos MD [facility]10/25/22 Office Visit Wilfred Ramos MD [facility] Fam MedShowing recent visits within past 540 days with a meds authorizing provider and meeting all other requirementsFuture AppointmentsNo visits were found meeting these conditions.Showing future appointments within next 150 days with a meds authorizing provider and meeting all other requirementsName from pharmacy: HYDROCO/APAP 7.5-32 TAB MALL 7.5-325MWill file in chart as: HYDROCODONE-ACETAMINOPHEN 7.5-325 mg per tabletSig: TAKE 1 TABLET BY MOUTH EVERY SIX HOURS NEEDED FOR PAINimportant Maximum MME cannot be calculated for this prescription. Enter discrete sig details to calculate maximum MME.Disp: 120 tablet Refills: 0Start: 12/01/2023Earliest Fill Date: 12/01/2023lass: eRXNon-formularyFor: Acute bilateral low back pain with right-sided sciaticaLast ordered: 2 months ago (09/21/2023) by Kendra Mcgee refill: 09/21/2023Rx #: [id number] Substance Jvnkkx9812/01/2023 09:44 AMProtocol Details Valid encounter within last 3 monthsPain agreement on fileThis refill cannot be delegatedTo be filled at: [facility] [place], [place] - [address] [address]Gsnrcszku encounter IpriNZ2175-99-74A40:45:39Telephone encounter NoteTXT1.2.840.659874.1.13.104.2.7 .2.725600|[id number] for patient rffx20704-2RzwwBTFQUUZMBLZHzenicss d C-CDA narrative rhfn535692563Rhustb L Cantu [address]TXTX[address] 64LRYBMUJWGKMMGOAQFHDSQY6880-59-10 T09:45:391.2.840.652695.1.72.3.15| 1.2.840.290792.1.13.104.2.7.2.7278 [id number] Faiza Shukla [facility] 2023-11-28 13:49:09 6525-80-45F43:49:09 Attempted to reach DOP no answer left a V/M 36604-0Pnpgbjqaf encounter DhtdTV1201-33-53M15:49:31Telephone encounter NoteTXT1.2.840.661134.1.13.104.2.7 .2.351057|0211127560PIKprzrqncn for patient oozv50693-4UoupFFDKPMIPGKLRhmimqtb d C-CDA narrative sliz727692347Usrunud R Leon [address]vestonTXTX[address] 87SLDJOLEJIFNSHADFICVJPS9323-66-42 T13:49:311.2.840.474514.1.72.3.15| 1.2.840.997719.1.13.104.2.7.2.7278 [id number] Susan Padgett MA [facility] 2023-11-28 11:59:40 6021-96-75R04:59:40 She should be done with these. How is she doing? 78849-0Mpvoxemfc encounter KqpvVH2653-97-62O35:00:12Telephone encounter NoteTXT1.2.840.149296.1.13.104.2.7 .2.862623|7671630114JOGhqmmfzrv for patient rwgx87877-2IlgnYNWCPHMWQUIAdmddadp d C-CDA narrative BO.LT[address]TXTX[address] 74YMQLBFOAGBXBBJHNUHKNTC6503-72-23 T12:00:121.2.840.588767.1.72.3.15| 1.2.840.481782.1.13.104.2.7.2.7278 [id number] [facility] 2023-11-28 07:50:36 1519-00-38B39:50:[address] Ramos patient 305[address]-9Ocyddcsrh encounter MnifGZ5249-56-67V14:51:08Telephone encounter NoteTXT1.2.840.152443.1.13.104.2.7 .2.874483|6830553640CTWardziqyz for patient xnve66873-1TvbtBCLHBEBOFXYHrrkwwob d C-CDA narrative textUTHolzer [facility] SvkjPqvizcafjOmwimvhouBVLA76686474 19IYLYBQUXZYSOBZLNVEAHFX2427-26-39 T07:51:081.2.840.903988.1.72.3.15| 1.2.840.003695.1.13.104.2.7.2.7278 [id number] [facility] 2023-11-25 11:44:12 6052-06-08F37:44:12 Please review and advise. 31116-9Txsepdvnw encounter PzynFT7269-59-57N83:44:34Telephone encounter NoteTXT1.2.840.566548.1.13.104.2.7 .2.764536|0746182888OLLhuylgytw for patient xvym56769-4GttsTRWFCNCNVXXRdgmpxvp d C-CDA narrative rgah600291373Sjyaij L Cantu [address]vdGalvestonGalvestonTXTX[address] 80JFTJFPYKLFAHGGKXQPIYZU6432-65-05 T11:44:341.2.840.015950.1.72.3.15| 1.2.840.839933.1.13.104.2.7.2.7278 [id number] Faiza Shukla MA [facility] 2023-11-25 11:20:27 2933-62-26O75:20:27 Patient's daughter "Cami"called stating the medication's that Dr. Williamson prescribe her mom "Kierra "on 11/14 it's causing her to feel sick. She's requesting an alternative for the following meds. Please contact Cami by phone or Mychart.Cami phone number: [phone] HCl (CIPRO) 500 mg tabletmetroNIDAZOLE (FLAGYL) 500 mg tablet 59181-8Snptrlgxr encounter ShwhSM1539-52-40J76:34:55Telephone encounter NoteTXT1.2.840.168013.1.13.104.2.7 .2.111904|3556770638RTIaxqfovko for patient pzev36251-0AuakHURWYJKLWTYAxawexgk d C-CDA narrative zmjs450107933Rfgparemn [address] PsegOpcrfcydfJelphuatjVFRY58162955 82ZWRWQGZMUCQLRIRYAIZRZA1833-53-35 T11:34:551.2.840.622296.1.72.3.15| 1.2.840.537547.1.13.104.2.7.2.7278 [id number] Karis Hatch [facility] 2023-06-20 08:19:12 4635-98-18K42:19:12 Images from the original note were not included.Last Refilled: 05/16/23Notes: [place], [place] - [address]: Xrwetc VisitsDate Type Provider Dept 04/20/23 Office Visit Wilfred Ramos MD [facility] 03/10/23 Office Visit Wilfred Ramos MD [facility] 02/24/23 Office Visit Wilfred Ramos MD [facility] 01/05/23 Office Visit Wilfred Ramos MD [facility] 12/16/22 Office Visit Wilfred Ramos MD [facility] 11/25/22 Office Visit Wilfred Ramos MD [facility] 10/25/22 Office Visit Wilfred Ramos MD [facility] 09/22/22 Office Visit Wilfred Ramos MD [facility] 02/25/22 Office Visit Ramos, Wilfred, MD [facility] Showing recent [...] ordered: 1 month ago (05/16/2023) by Wilfred Ramos MD Last refill: 05/16/2023 Rx #: [id number] Controlled Substance Failed 06/18/2023 10:04 AM Protocol Details Valid encounter within last 3 months Pain agreement on file This refill cannot be delegated To be filled at: [place], [place] - [address] [facility] [address]-4Jmdpxkngh encounter ObooCP9912-71-97L54:19:40Telephone encounter NoteTXT1.2.840.615183.1.13.104.2.7 .2.764045|[id number] for patient [id number] L [place] [address] Ae[id number] 73YCOXDAAMCNRXYYQNRWJCKB4173-73-44 T08:19:401.2.840.096403.1.72.3.15| 1.2.840.933892.1.13.104.2.7.2.7278 [id number] Faiza Shukla [facility] 2023-05-17 16:17:22 4540-09-68R23:17:22 Sent prescription for accu-chek 44411-6Zlqwguveb encounter IipwXZ3066-54-10B44:18:23Telephone encounter NoteTXT1.2.840.833355.1.13.104.2.7 .2.748750|[id number] for patient [id number] D [place] [id number] 70WGZDERNRFCBJQZQHAOASUT7960-75-10 T16:18:231.2.840.232647.1.72.3.15| 1.2.840.284558.1.13.104.2.7.2.7278 [id number] Kia Perry [facility] 2023-05-17 15:47:18 0007-93-88D34:47:18 Images from the original note were not included. 04296-7Vwdjxdgmn encounter OavvLG0126-88-47H75:47:42Telephone encounter NoteTXT1.2.840.493614.1.13.104.2.7 .2.634328|[id number] for patient [id number] M [id number] 52UULJVFPMDEUFSNFQRISKIW7477-62-08 T15:47:421.2.840.937610.1.72.3.15| 1.2.840.852211.1.13.104.2.7.2.7278 [id number] Stefanie Storey [facility] 2023-05-13 14:19:29 6465-88-10L95:19:29 Patient daughter, Cami, called saying the HYDROcodone-ibuprofen 7.5-200 mg per tablet is on backorder. She's wanting to know if the medication could be switched to Hydrocodone with Tylenol. Please call. 70591-0Zgywbavle encounter LzezDS3982-65-56I59:22:14Telephone encounter NoteTXT1.2.840.648882.1.13.104.2.7 .2.978767|[id number] for patient [id number] Chelle Merida[id number] 21IOWFLJKFGQFGUYEFLZKRZY1211-43-42 T14:22:141.2.840.485205.1.72.3.15| 1.2.840.829227.1.13.104.2.7.2.7278 [id number] Yarely Montemayor [facility] 2023-04-27 15:07:27 2969-51-74H86:07:27 Forms were faxed on 04/26/2023 at 5pm. 06375-1Kwoivsicc encounter JtocTJ7804-58-31I27:07:53Telephone encounter NoteTXT1.2.840.099207.1.13.104.2.7 .2.425514|[id number] for patient [id number] J Medina MA[id number] 30SBKLESRRNQBVWKRQXBNIVH3213-77-68 T15:07:531.2.840.468581.1.72.3.15| 1.2.840.749379.1.13.104.2.7.2.7278 [id number] Brittany Lees MANNIE [facility] 2023-04-27 06:39:39 9115-86-81D61:39:39 I don't know about forms 47394-4Vgwmyskgj encounter ZmceUB6190-86-63O95:40:03Telephone encounter NoteTXT1.2.840.836736.1.13.104.2.7 .2.308817|[id number] for patient care[id number] 07XBSLCSMGYBZXFAEPVTSGBD5132-65-96 T06:40:031.2.840.850373.1.72.3.15| 1.2.840.302631.1.13.104.2.7.2.7278 [id number] [facility] 2023-04-26 14:42:04 6497-86-79T69:42:04 [place] [facility] [place] sent [place] so they can start the services for the pt. Ivonne stated that the forms were faxed on April 13 and nothing has been sent backPlease advise 83681-8Yrosaeuzj encounter ErrtSP4431-81-94B69:44:38Telephone encounter NoteTXT1.2.840.912036.1.13.104.2.7 .2.301566|[id number] for patient [id number] G OrtizU[id number] 82VHZJEKSOQHRYMACHTWFINS3074-51-63 T14:44:381.2.840.202608.1.72.3.15| 1.2.840.383849.1.13.104.2.7.2.7278 [id number] Joe Pham [facility] 2023-04-26 14:36:39 1445-74-00Y90:36:39 Patients daughter Cami is calling in to check status of forms.Please advise 73053-3Yuuxbgqfv encounter IxhnSN5405-80-74W96:37:18Telephone encounter NoteTXT1.2.840.211861.1.13.104.2.7 .2.340881|[id number] for patient [id number] Catrachita Adama[address] Vk[id number] 07WBJPSBXUPKLPLRKWARCJFJ9873-19-61 T14:37:181.2.840.071383.1.72.3.15| 1.2.840.595795.1.13.104.2.7.2.7278 [id number] Vidal Galan [facility] 2023-04-25 10:39:43 2127-25-94O15:39:43 Ivonne from [facility] called following up on Forms that provider needed to sign in able for them to starts services. [phone] fx [phone]. Please advise 04561-3Sbfzltyvv encounter ZksqIS5873-70-07I93:41:47Telephone encounter NoteTXT1.2.840.572146.1.13.104.2.7 .2.650501|[id number] for patient [id number] A [address] Iu[id number] 14XYMIRORLOTUFMMOAOUUIMO3942-80-81 T10:41:471.2.840.809749.1.72.3.15| 1.2.840.723073.1.13.104.2.7.2.7278 [id number] Tiffanie LopezFormerly [facility] 2023-04-20 14:30:00 2683-78-39H16:30:00 Addended by: SUSAN ALVAREZ on: 05/05/2023 07:54 AM Modules accepted: Orders [id number] UpyzitplPA4415-02-11K27:54:28Adden dum DocumentTXT1.2.840.502960.1.13.104 .2.7.2.919634|[id number] e for patient gibx78665-6DtzfDZVSGFODEP[address] Ty[id number] 76QGGOMFGKKMVHPHCDYDOPYZ4031-04-32 T07:54:281.2.840.270845.1.72.3.15| 1.2.840.334087.1.13.104.2.7.2.7278 [id number] [facility]
[2024-03-07] MEDS ORDERED: FUROSEMIDE 40 MG/4 ML VIAL ONE (21:19)
[2024-03-07] MEDS ORDERED: METHYLPREDNISOLONE 125 MG INJ ONE (21:19)
[2024-03-07] MEDS ORDERED: ONDANSETRON 4 MG/2 ML VIAL ONE (21:19)
[2024-03-07] MEDS ORDERED: MORPHINE 4 MG/ML SYR ONE (21:19)
[2024-03-07 21:39] LABS: Blood Gas Oxyhemoglobin 96.7 % (94-97); Blood Gas THB 12.2 g/dl (12-18); Blood O2 Saturation 99.3 % (92-98.5)
[2024-03-07] MEDS ORDERED: METOCLOPRAMIDE 10 MG/2mL INJ ONE (21:46)
[2024-03-07] MEDS ORDERED: dilTIAZem HCL 25 MG/5 ML VIAL IV ONE ×2 (21:58→22:41)
[2024-03-07] MEDS ORDERED: NA CHLORIDE 0.9% 100 ML ONE (21:58)
[2024-03-07 22:17] LABS: Absolute Basophils 0.1 K/uL (0-0.5); Absolute Eosinophils 0.4 K/uL (0-0.5); Absolute Lymphocytes (CBC) 1.5 K/uL (0.7-4.9); Absolute Monocytes 0.7 K/uL (0.1-1.3); Absolute Neutrophil 8.2 K/uL (1.8-8.0); Basophils % 1.2 % (0-1.3); Eosinophils % 3.4 % (0-4.4); Hematocrit 35.3 % (36.0-45.0); Hemoglobin 11.9 g/dL (12.0-15.0); Lymphocytes % 13.7 % (15.3-44.8); MCH 30.4 pg (27.0-35.0); MCHC 33.6 g/dL (32.0-36.0); MCV 90.5 fL (80-100); MPV 7.4 fL (7.6-11.3); Monocytes % 6.4 % (3.3-12.3); Neutrophils % 75.3 % (41.7-73.7); Nucleated Red Blood Cells % 0.2 % (0-0); Platelets 395 thou/uL (152-406); Red Cell Distribution Width 14.4 % (12.1-15.2)
--- NOTE | 2024-03-07 22:18 | RAD REPORT ---
EXAM DESCRIPTION: RAD - Chest Single View - 03/07/2024 10:12 pm CLINICAL HISTORY: CHEST PAIN Chest pain. COMPARISON: <Comparisons> FINDINGS: Portable technique limits examination quality. Moderate bilateral pulmonary opacities are present likely representing pulmonary edema or pneumonia. The heart is mildly enlarged in size. No displaced fractures.
[2024-03-07 22:58] LABS: Albumin 3.1 g/dL (3.4-5.0); Albumin/Globulin Ratio 0.8 (1.1-1.8); Alkaline Phosphatase 94 U/L (45-117); Anion Gap 10.3 mEq/L (5.0-15.0); BUN Blood Urea Nitrogen 15 mg/dL (7-18); Bicarbonate 23 mEq/L (21-32); Bilirubin Total 0.4 mg/dL (0.2-1.0); Creatine Phosphokinase 41 U/L (26-192); Globulin 3.8 g/dL (2.3-3.5); Glomerular Filtration Rate 37 ml/min (=/>90); Glucose Level 321 mg/dL (74-106); Lipase 47 U/L (13-75); Magnesium 2.1 mg/dL (1.6-2.4); NT PRO-BNP 1024 pg/mL (<450); Potassium 4.3 mEq/L (3.5-5.1); Protein, Total 6.9 g/dL (6.4-8.2); Sodium Level 130 mEq/L (136-145)
[2024-03-07 23:07] LABS: ALT/SGPT < 14 U/L (13-56); AST/SGOT < 10 U/L (15-37); Bilirubin Direct < 0.2 mg/dL (0-0.2); Bilirubin Indirect, Calculated 0.2 mg/dL (0.2-0.8)
[2024-03-07 23:26] LABS: PT Prothrombin Time 11.1 SECONDS (9.5-12.5); PTT, Activated Partial Thromb 29.9 SECONDS (24.3-36.9); Protime INR 1.01
--- NOTE | 2024-03-07 23:36 | ER ---
Nurse's Notes [facility] Name: Yancy Sweeney Age: 88 yrs Sex: Female : 1935 Arrival Date: 03/07/2024 Time: 21:11 Bed 4 Private MD: Diagnosis: Paroxysmal atrial fibrillation;Atrial fibrillation with RVR, acute pulmonary edema, systolic heart failure Presentation: 03/07 21:22 Chief complaint: EMS states: EMS was called for SOB. Pt was coughing, started coughing jb4 up bright pink frothy blood. Was satting in the 60's on RA. Was placed on 4L NC. O2 increased to 86%. Placed on Bi-pap, was given 10mg of Cardizem via 100 ml of NS. Was given 324 of aspirin. Coronavirus screen: At this time, the client does not indicate any symptoms associated with coronavirus-19. Ebola Screen: No symptoms or risks identified at this time. Initial Sepsis Screen: Does the patient meet any 2 criteria? HR > 90 bpm. Yes Does the patient have a suspected source of infection? No. Patient's initial sepsis screen is negative. Risk Assessment: Do you want to hurt yourself or someone else? Patient reports no desire to harm self or others. Onset of symptoms was March 07, 2024. Transition of care: patient was not received from another setting of care. 21:22 Method Of Arrival: EMS: [facility] 21:22 Acuity: NAOMIE 1 jb4 Triage Assessment: 21:26 General: Appears distressed, comfortable, Behavior is calm, cooperative. Pain: jb4 Complains of pain in chest Pain does not radiate. Pain currently is 7 out of 10 on a pain scale. Neuro: Level of Consciousness is awake, alert, obeys commands, Oriented to person, place, time, situation. Cardiovascular: Patient's skin is warm and dry. Respiratory: Airway is patent Respiratory effort is labored, shallow, Respiratory pattern is symmetrical, tachypnea Sputum is bloody. GI: No signs and/or symptoms were reported involving the gastrointestinal system. : No signs and/or symptoms were reported regarding the genitourinary system. Derm: Skin is intact, Skin is pink, warm \T\ dry. Musculoskeletal: Circulation, motion, and sensation intact. Range of motion: intact in all extremities. Historical: - Allergies: 21:26 Ciprofloxacin; cant take it with levoquin together; jb4 21:26 Levofloxacin; jb4 - PMHx: 21:26 diabetes mellitus; Hypercholesterolemia; Hypertensive disorder; Myocardial infarction; jb4 - PSHx: 21:26 Cholecystectomy; Stented artery; Total abdominal hysterectomy; jb4 - Immunization history:: Adult Immunizations unknown. - Infectious Disease History:: Denies. - Social history:: Smoking status: unknown. - Family history:: not pertinent. Screenin:14 [facility] ED Fall Risk Assessment (Adult) History of falling in the last 3 months, tm6 including since admission No falls in past 3 months (0 pts) Confusion or Disorientation No (0 pts) Intoxicated or Sedated No (0 pts) Impaired Gait No (0 pts) Mobility Assist Device Used No (0 pt) Altered Elimination No (0 pt) Score/Fall Risk Level 0 - 2 = Low Risk Oriented to surroundings, Maintained a safe environment, Educated pt \T\ family on fall prevention, incl call for assistance when getting out of bed. Abuse screen: Denies threats or abuse. Denies injuries from another. Nutritional screening: No deficits noted. Tuberculosis screening: No symptoms or risk factors identified. Assessment: 22:14 General: Appears uncomfortable, Behavior is cooperative. Pain: Denies pain. Neuro: tm6 Level of Consciousness is awake, alert, obeys commands, Oriented to person, place, time, situation. Cardiovascular: Reports shortness of breath, Patient's skin is warm and dry. Rhythm is sinus tachycardia. Respiratory: Airway is patent Respiratory effort is labored, Respiratory pattern is tachypnea Patient placed on BiPAP: Onset: The symptoms/episode began/occurred just prior to arrival, the patient has severe shortness of breath. Respiratory: Reports shortness of breath labored breathing. GI: GI: No signs and/or symptoms were reported involving the gastrointestinal system. Abdomen is flat, non-distended. : No signs and/or symptoms were reported regarding the genitourinary system. EENT: No signs and/or symptoms were reported regarding the EENT system. Derm: No signs and/or symptoms reported regarding the dermatologic system. Musculoskeletal: No signs and/or symptoms reported regarding the musculoskeletal system. 03/08 19:22 General: Called Tena PINEDA to give report. She cant take report at this time. States me1 she has to move a patient before she can take this one. Asked her to call when she can take report. . 20:46 General: Report given to EDWIN Madsen. me1 Vital Signs: 03/07 21:22 BP 180 / 90; Pulse 130; Resp 29; Pulse Ox 100% on BiPAP; jb4 22:13 BP 151 / 141; Pulse 118; Resp 16; Pulse Ox 99% on BiPAP; tm6 22:18 BP 143 / 95; Pulse 112; Resp 15; Pulse Ox 99% on BiPAP; tm6 22:46 BP 142 / 59; Pulse 88; Resp 20; Pulse Ox 99% on Mask: BiPAP; tm6 22:47 BP 142 / 59; Pulse 97; Resp 20; Pulse Ox 100% on BiPAP; MAP 81 mmHg; Pain 0/10; tm6 22:49 BP 111 / 99; Pulse 90; Resp 26; Pulse Ox 100% on BiPAP; MAP 106 mmHg; tm6 23:09 BP 129 / 54; Pulse 64; Resp 19; Pulse Ox 98% on BiPAP; tm6 23:56 BP 145 / 55; Pulse 65; Resp 13; Pulse Ox 99% on 4 lpm NC; tm6 03/08 00:00 BP 146 / 66; Pulse 66; Resp 16; Pulse Ox 97% on 4 lpm NC; km8 00:30 BP 134 / 73; Pulse 70; Resp 16; Pulse Ox 96% on 4 lpm NC; km8 15:47 Weight 57.15 kg; ll1 22:47 Pain Scale: Adult tm6 Eagle Coma Score: 03/07 23:41 Eye Response: spontaneous(4). Motor Response: obeys commands(6). Verbal Response: sp4 oriented(5). Total: 15. ED Course: 21:14 Patient arrived in ED. vk 21:14 Seng Delgadillo MD is Attending Physician. sp4 21:17 Initial lab(s) drawn, by ks, sent to lab. EKG done, by ED staff, reviewed by Seng Delgadillo MD. Inserted saline lock: 18 gauge in left antecubital area, using aseptic technique. 21:26 Triage completed. jb4 21:26 Arm band placed on. jb4 21:32 Zohaib Liz RN is Primary Nurse. tm6 21:43 BMP Sent. tm6 21:43 CBC with Diff Sent. tm6 21:43 CPK Sent. tm6 21:43 Hepatic Function Sent. tm6 21:43 Lipase Sent. tm6 21:43 Magnesium Sent. tm6 21:43 NT PRO-BNP Sent. tm6 21:43 PT-INR Sent. tm6 21:43 Ptt, Activated Sent. tm6 21:43 Troponin HS Sent. tm6 22:14 XRAY CXR (1 view) In Process Unspecified. EDMS 22:14 Maintain EMS IV. Dressing intact. Good blood return noted. Site clean \T\ dry. Gauge \T\ tm 6 site: 20g RAC. 22:14 O2 via bipap. tm6 22:14 Patient has correct armband on for positive identification. Bed in low position. Call tm6 light in reach. Side rails up X2. Provided Education on: use of call bermudez. Client placed on continuous cardiac and pulse oximetry monitoring. NIBP monitoring applied. equipment monitor phototypesetting on. Pulse ox on. NIBP on. Noise minimized. Warm blanket given. 23:34 Albina Morin MD is Hospitalizing Provider. sp4 23:56 Oxygen administration via nasal cannula \T\ 4L/min. tm6 06/06 03:20 No provider procedures requiring assistance completed. Patient admitted, IV remains in tm6 place. Administered Medications: 03/07 21:32 Drug: Furosemide IVP 40 mg IVP once; give over 2 minutes Route: IVP; Site: left tm6 antecubital; 21:33 Drug: MethylPrednisoLONE IVP 125 mg IVP once Route: IVP; Site: left antecubital; 6 21:33 Drug: morphine IVP or IV 4 mg IVP once over 4 mins Route: IVP; Infused Over: 4 mins; tm6 Site: left antecubital; 21:33 Drug: Ondansetron IVP 4 mg IVP once; over 2 minutes Route: IVP; Site: left antecubital; tm6 21:50 Drug: metoCLOPramide IVP 10 mg IVP once; over 1 to 2 minutes Route: IVP; Site: left jb4 antecubital; 22:10 Drug: Diltiazem IV 5 mg/hr IV at calculated rate See Administration Instructions; tm6 (standard dilution 125 mg diltiazem mixed in 125 mL NS; final concentration 1mg/mL). Recommended max rate 15 mg/hr; Titrate 5 mg/hr as often as every 15 minutes to achieve goal (see titration policy); Goal parameter HR less than 100 bpm Route: IV; Rate: calculated rate; Site: left antecubital; 22:46 Follow up: BP 142 / 59; Pulse 88 bpm; Resp 20 bpm; Pulse Ox 99% Mask: BiPAP tm6 23:08 Follow up: IV Status: Completed infusion tm6 22:46 Drug: Diltiazem IVP 10 mg IVP once; Over 2 minutes Route: IVP; Site: left antecubital; tm6 03/08 00:28 Drug: Diltiazem PO 30 mg PO once Route: PO; tm6 00:28 Drug: Enoxaparin Sub-Q 60 mg Sub-Q once Route: Sub-Q; Site: left lower abdomen; tm6 19:00 Follow up: Response: No adverse reaction ll1 Medication: 03/07 22:14 VIS not applicable for this client. tm6 Outcome: 23:35 Decision to Hospitalize by Provider. sp4 03/08 03:20 Admitted to ER Hold. Please see [facility] for further documentation. tm6 Condition: stable Instructed on the need for admit, 20:46 Admitted to ICU accompanied by nurse, via stretcher, room -8, with chart, Report called me1 to EDWIN Madsen 21:12 Patient left the ED. lg3 Signatures: Dispatcher [employer] EDThanh Gonzalez RN EDWIN jb4 Sarai Worrell RN RN lg3 Danica Estes RN RN ll1 Malini Harman, RN RN remy9 Seng Delgadillo MD MD sp4 Lisa Mathew RN RN me1 Nanci Luna RN RN km8 Zohaib Liz RN RN tm6 Eve Faith
--- NOTE | 2024-03-07 23:36 | EDPHYS ---
Physician Documentation [facility] Name: Yancy Sweeney Age: 88 yrs Sex: Female : 1935 Arrival Date: 03/07/2024 Time: 21:11 Bed 4 Private MD: ED Physician Seng Delgadillo HPI: 03/07 21:14 This 88 yrs old Female presents to ER via Unassigned with complaints of sp4 dyspnea . 23:41 Patient is a very pleasant 88-year-old female who presents with EMS for acute shortness sp4 of breath associated with bloody cough. Patient has past medical history of insulin-dependent diabetes, coronary artery disease, GERD, hypertension, hyperlipidemia. Last admission 02/20/2024 for chest pain hyponatremia back pain rule out ACS type 2 diabetes management hypertension hyperlipidemia. Arrival patient is in acute respiratory distress requiring CPAP by EMS. Patient's medications include insulin detemir subcu daily, lisinopril 20 mg p.o. daily, clopidogrel 75 mg p.o. daily, aspirin 81 mg p.o. daily, metformin 750 mg p.o. daily, metoprolol 25 mg p.o. twice daily. Historical: - Allergies: 21:26 Ciprofloxacin; cant take it with levoquin together; jb4 21:26 Levofloxacin; jb4 - PMHx: 21:26 diabetes mellitus; Hypercholesterolemia; Hypertensive disorder; Myocardial infarction; jb4 - PSHx: 21:26 Cholecystectomy; Stented artery; Total abdominal hysterectomy; jb4 - Immunization history:: Adult Immunizations unknown. - Infectious Disease History:: Denies. - Social history:: Smoking status: unknown. - Family history:: not pertinent. ROS: 23:41 Constitutional: Negative for fever, chills, and weight loss, positive generalized sp4 weakness, positive chest discomfort, positive shortness of breath, positive cough, positive bloody sputum 23:41 All other systems are negative, Exam: 23:41 Constitutional: This is a well developed, thin elderly female presents with acute sp4 moderate respiratory distress, on CPAP, moderate hypertension, rapid irregularly irregular tachycardia, atrial fibrillation on monitor. Patient also has bloody sputum Head/Face: Normocephalic, atraumatic. Eyes: Pupils equal round and reactive to light, extra-ocular motions intact. Lids and lashes normal. Conjunctiva and sclera are not injected. Cornea within normal limits. Periorbital areas with no swelling, redness, or edema. ENT: Nares patent. No nasal discharge, no septal abnormalities noted. Tympanic membranes are normal and external auditory canals are clear. Oropharynx with no redness, swelling, or masses, exudates, or evidence of obstruction, uvula midline. Mucous membranes moist. Neck: Trachea midline, no thyromegaly or masses palpated, and no cervical lymphadenopathy. Supple, full range of motion without nuchal rigidity, or vertebral point tenderness. Chest/axilla: Normal chest wall appearance and motion. Nontender with no deformity. No lesions are appreciated. Cardiovascular: Positive irregularly irregular tachycardia rate 140. no gallops, murmurs, or rubs. Normal PMI, no JVD. No pulse deficits. Respiratory: Lungs have equal breath sounds bilaterally, bilateral crackles and bilateral. Bilateral wheezing as well, tachypnea, dyspnea on exam abdominal retractions. Abdomen/GI: Soft, with normal bowel sounds. No distension or tympany. No guarding or rebound. No evidence of tenderness throughout. Back: No spinal tenderness. No costovertebral tenderness. Female : Normal external genitalia. Skin: Warm, dry with normal turgor. Normal color with no rashes, no lesions, and no evidence of cellulitis. MS/ Extremity: Pulses equal, no cyanosis. Neurovascular intact. Full, normal range of motion. Neuro: Awake and alert, GCS 15, oriented to person, place, time, and situation. Cranial nerves II-XII grossly intact. Motor strength 5/5 in all extremities. Sensory grossly intact. Psych: Awake, alert, with orientation to person, place and time. Behavior, mood, and affect are within normal limits 23:41 ECG was reviewed by the Attending Physician. EKG reveals 21:14 23:56 Initial EKG at 2114 rapid atrial fibrillation rate 115, left bundle branch block. No sp4 sign of [place] based on Sgar[place]ossa criteria Vital Signs: 21:22 BP 180 / 90; Pulse 130; Resp 29; Pulse Ox 100% on BiPAP; jb4 22:13 BP 151 / 141; Pulse 118; Resp 16; Pulse Ox 99% on BiPAP; tm6 22:18 BP 143 / 95; Pulse 112; Resp 15; Pulse Ox 99% on BiPAP; tm6 22:46 BP 142 / 59; Pulse 88; Resp 20; Pulse Ox 99% on Mask: BiPAP; tm6 22:47 BP 142 / 59; Pulse 97; Resp 20; Pulse Ox 100% on BiPAP; MAP 81 mmHg; Pain 0/10; tm6 22:49 BP 111 / 99; Pulse 90; Resp 26; Pulse Ox 100% on BiPAP; MAP 106 mmHg; tm6 23:09 BP 129 / 54; Pulse 64; Resp 19; Pulse Ox 98% on BiPAP; tm6 23:56 BP 145 / 55; Pulse 65; Resp 13; Pulse Ox 99% on 4 lpm NC; tm6 0606 00:00 BP 146 / 66; Pulse 66; Resp 16; Pulse Ox 97% on 4 lpm NC; km8 00:30 BP 134 / 73; Pulse 70; Resp 16; Pulse Ox 96% on 4 lpm NC; km8 15:47 Weight 57.15 kg; ll1 22:47 Pain Scale: Adult tm6 [place] Coma Score: 03/07 23:41 Eye Response: spontaneous(4). Motor Response: obeys commands(6). Verbal Response: sp4 oriented(5). Total: 15. MDM: 23:35 Patient medically screened. sp4 23:55 Differential Diagnosis altered mental status, sepsis, flu. Data reviewed: vital signs, sp4 nurses notes, EMS record, old medical records, lab test result(s), EKG, radiologic studies, plain films. ED course: EXAM DESCRIPTION: RAD - Chest Single View - 03/07/2024 10:12 pm CLINICAL HISTORY: CHEST PAIN Chest pain. COMPARISON: FINDINGS: Portable technique limits examination quality. Moderate bilateral pulmonary opacities are present likely representing pulmonary edema or pneumonia. The heart is mildly enlarged in size. No displaced fractures. . 23:58 Consideration of Admission/Observation Patient was admitted/placed on observation. sp4 Escalation of care including admission/observation considered. Management of patient was discussed with the following: Hospitalist: Christine MONROE . Facility Designer: Aminata MONROE . ED course: Patient has converted from atrial fibrillation with RVR into sinus rhythm with a rate of 64. Patient remains on the BiPAP however she is feeling improved will try to switch to nasal cannula 4 L flow. Patient at this time does not warrant ICU admission as she is off the Cardizem infusion. Will administer p.o. Cardizem for rate control. Will request admission and cardiology consult.. 03/07 21:15 Order name: BMP; Complete Time: 23:22 sp4 03/07 21:15 Order name: Blood Culture Adult (2) sp4 03/07 21:15 Order name: CBC with Diff; Complete Time: 22:33 sp4 03/07 21:15 Order name: CPK; Complete Time: 23:22 sp4 03/07 21:15 Order name: Hepatic Function; Complete Time: 23:22 sp4 03/07 21:15 Order name: Lipase; Complete Time: 23:22 sp4 03/07 21:15 Order name: Magnesium; Complete Time: 23:22 sp4 03/07 21:15 Order name: NT PRO-BNP; Complete Time: 23:22 sp4 03/07 21:15 Order name: PT-INR; Complete Time: 03:03 sp4 03/07 21:15 Order name: Ptt, Activated; Complete Time: 03:03 sp4 03/07 21:15 Order name: Troponin HS; Complete Time: 23:22 sp4 03/07 21:15 Order name: ABG; Complete Time: 22:33 sp4 03/08 00:07 Order name: Thyroid Stimulating Hormone EDMS 03/08 00:07 Order name: CBC with Automated Diff EDMS 03/08 00:07 Order name: CBC with Automated Diff EDMS 03/08 00:07 Order name: Comprehensive Metabolic Panel EDMS 03/08 00:07 Order name: Comprehensive Metabolic Panel EDMS 03/08 00:07 Order name: Magnesium EDMS 03/08 00:07 Order name: Magnesium EDMS 03/08 00:07 Order name: Magnesium EDMS 03/08 00:07 Order name: Magnesium EDMS 03/08 00:07 Order name: Troponin High Sensitivity EDMS 03/08 00:07 Order name: Troponin High Sensitivity EDMS 03/08 00:07 Order name: Troponin High Sensitivity EDMS 03/08 00:07 Order name: Troponin High Sensitivity EDMS 03/08 01:47 Order name: Glucose, Ancillary Testing; Complete Time: 03:03 EDMS 03/08 02:43 Order name: Glucose, Ancillary Testing; Complete Time: 03:03 EDMS 03/08 04:52 Order name: Manual Differential EDMS 03/08 04:52 Order name: Thyroid Stimulating Hormone EDMS 03/08 06:20 Order name: Glucose, Ancillary Testing EDMS 03/08 08:45 Order name: Glucose, Ancillary Testing EDMS 03/08 13:57 Order name: Glucose, Ancillary Testing EDMS 03/08 14:39 Order name: Cortisol EDMS 03/08 15:56 Order name: PTT, Activated Partial Thromb EDMS 03/08 17:06 Order name: Glucose, Ancillary Testing EDMS 03/08 21:04 Order name: PTT, Activated Partial Thromb EDMS 03/07 21:15 Order name: XRAY CXR (1 view); Complete Time: 22:33 sp4 03/08 00:07 Order name: Echo with Doppler EDMS 03/08 14:32 Order name: US EDMS 03/07 21:15 Order name: EKG; Complete Time: 21:16 sp4 03/08 00:07 Order name: CONS Physician Consult EDMS 03/08 00:07 Order name: CONS Physician Consult EDMS 03/07 21:15 Order name: Cardiac monitoring; Complete Time: 21:16 sp4 03/07 21:15 Order name: EKG - Nurse/Tech; Complete Time: 21:16 sp4 03/07 21:15 Order name: IV Saline Lock; Complete Time: 21:17 sp4 03/07 21:15 Order name: Labs collected and sent; Complete Time: 21:17 sp4 03/07 21:15 Order name: O2 Per Protocol; Complete Time: 21:17 sp4 03/07 21:15 Order name: O2 Sat Monitoring; Complete Time: 21:17 sp4 EC:56 Rate is 115 beats/min. Rhythm is irregularly irregular, A fib with Rapid ventricular sp4 response. QRS interval is prolonged. Clinical impression: Atrial Fibrillation. Interpreted by me. Reviewed by me. Administered Medications: 21:32 Drug: Furosemide IVP 40 mg IVP once; give over 2 minutes Route: IVP; Site: left tm6 antecubital; 21:33 Drug: MethylPrednisoLONE IVP 125 mg IVP once Route: IVP; Site: left antecubital; tm6 21:33 Drug: morphine IVP or IV 4 mg IVP once over 4 mins Route: IVP; Infused Over: 4 mins; tm6 Site: left antecubital; 21:33 Drug: Ondansetron IVP 4 mg IVP once; over 2 minutes Route: IVP; Site: left antecubital; tm6 21:50 Drug: metoCLOPramide IVP 10 mg IVP once; over 1 to 2 minutes Route: IVP; Site: left jb4 antecubital; 22:10 Drug: Diltiazem IV 5 mg/hr IV at calculated rate See Administration Instructions; tm6 (standard dilution 125 mg diltiazem mixed in 125 mL NS; final concentration 1mg/mL). Recommended max rate 15 mg/hr; Titrate 5 mg/hr as often as every 15 minutes to achieve goal (see titration policy); Goal parameter HR less than 100 bpm Route: IV; Rate: calculated rate; Site: left antecubital; 22:46 Follow up: BP 142 / 59; Pulse 88 bpm; Resp 20 bpm; Pulse Ox 99% Mask: BiPAP tm6 23:08 Follow up: IV Status: Completed infusion tm6 22:46 Drug: Diltiazem IVP 10 mg IVP once; Over 2 minutes Route: IVP; Site: left antecubital; tm6 03/08 00:28 Drug: Diltiazem PO 30 mg PO once Route: PO; tm6 00:28 Drug: Enoxaparin Sub-Q 60 mg Sub-Q once Route: Sub-Q; Site: left lower abdomen; tm6 19:00 Follow up: Response: No adverse reaction ll1 Disposition Summary: 03/07/24 23:35 Hospitalization Ordered Notes: Hospitalization Status: Inpatient Admission sp4 Provider: Albina Morin spCleve Condition: Serious sp4 Problem: new sp4 Symptoms: have improved sp4 Bed/Room Type: Standard sp4 Location: Intensive Care Unit(03/08/24 18:19) [facility] Room Assignment: -(03/08/24 18:19) [facility] Diagnosis - Paroxysmal atrial fibrillation sp4 - Atrial fibrillation with RVR, acute pulmonary edema, systolic heart failure sp4 Forms: - Medication Reconciliation Form sp4 - SBAR form sp4 - Leadership Thank You Letter sp4 Critical care time excluding procedures: 03/07 23:41 Critical care time: Bedside Care: 36 minutes, Consultation: 12 minutes, Family sp4 Intervention: 12 minutes. Total time: 60 minutes Signatures: Dispatcher [employer] Thanh Bourgeois RN RN jb4 Sofie Silva [facility] Seng Delgadillo MD MD sp4 Zohaib Liz RN RN tm6 Antoni Larios Lynsay RN ll1 Corrections: (The following items were deleted from the chart) 21:16 21:16 BASIC METABOLIC PANEL+C.LAB.BRZ ordered. EDMS EDMS 21:16 21:16 BLOOD CULTURE*+BA.LAB.BRZ ordered. EDMS EDMS 21:16 21:16 CBC+H.LAB.BRZ ordered. EDMS EDMS 21:16 21:16 CREATINE PHOSPHOKINASE+C.LAB.BRZ ordered. EDMS EDMS 21:16 21:16 HEPATIC FUNCTION+C.LAB.BRZ ordered. EDMS EDMS 21:16 21:16 LIPASE+C.LAB.BRZ ordered. EDMS EDMS 21:16 21:16 MAGNESIUM+C.LAB.BRZ ordered. EDMS EDMS 21:16 21:16 PROBNP+C.LAB.BRZ ordered. EDMS EDMS 21:16 21:16 PROTIME (+INR)+COAG.LAB.BRZ ordered. EDMS EDMS 21:16 21:16 PTT, ACTIVATED+COAG.LAB.BRZ ordered. EDMS EDMS 21:16 21:16 Troponin High Sensitivity+C.LAB.BRZ ordered. EDMS EDMS 21:16 21:16 BiPap ([employer] Only)+RC.RAD.BRZ ordered. EDMS EDMS 21:16 21:16 Arterial Blood Gas+RC.LAB.BRZ ordered. EDMS EDMS 03/08 03:34 0605 23:35 Telemetry/MedSurg (Inpatient) sp4 ty 03/08 03:34 0605 23:35 sp4 ty 03/08 06:45 03/07 22:33 Bond ordered. sp4 tm6 03/08 18:19 03:34 [facility] ER HOLD ty bc6 18:19 03:34 ERHOLD- ty bc6
[2024-03-07] MEDS ORDERED: ENOXAPARIN 60 MG/0.6 ML SQ ONE (23:40)
[2024-03-07] MEDS: DILTIAZEM HCL 60 MG TAB ONE (23:47)
--- NOTE | 2024-03-07 23:56 | P.HP ---
Certification for Inpatient With expected LOS: >2 Midnights Patient will require the following post-hospital care: None Practitioner: I am a practitioner with admitting privileges, knowledge of patient current condition, hospital course, and medical plan of care. Services: Services provided to patient in accordance with Admission requirements found in Title 42 Section 412.3 of the Code of Federal Regulations Patient History Date of Service: 03/08/24 Reason for admission: Cough with shortness of breath History of Present Illness: 88-year-old female with past medical history of HTN/DM/HLD/CAD status post PCI in the past; who presented to the hospital via EMS after developing worsening cough with frothy pink blood-tinged sputum today at home. On arrival in the EMS patient O2 sat was 66% on room air. She was initiated on high flow O2 and later switched to BiPAP on arrival in the ED. She denies any fever or chills. She denies any chest pain. On arrival in the ED vital signs showed blood pressure in the 180s over 90s, heart rate in the 130s, in A-fib with RVR. Noted on EKG, chest x-ray shows moderate pulmonary edema with possible underlying pneumonia. proBNP was little elevated at 1086, troponin was normal. Creatinine 1.4 with baseline of 0.9-1.1, ABG shows pH of 7.34 with normal pCO2. Patient was given IV Cardizem/Lasix IV as well as midline prednisolone. Heart rate improved to the 115 she was started on Cardizem drip and converted to normal sinus rhythm within an hour after which initiated. Cardizem drip has been held. BiPAP been weaning down to 02 nasal cannula now. Noted intermittent drop in HR to 45 after off cardizem gtt . She has been admitted for A-fib with RVR, pulmonary edema with acute hypoxic respiratory failure Allergies levofloxacin [From Levaquin] Adverse Reaction (Verified 01/31/23 08:20) "Confusion" Home Medications: Insulin Detemir [Levemir] 28 units SQ DAILY 12/26/22 Lisinopril [Zestril] 20 mg PO DAILY 12/26/22 Clopidogrel Bisulfate [Plavix*] 75 mg PO DAILY 01/31/23 Metformin HCl [Glucophage*] 750 mg PO DAILY 01/31/23 Metoprolol Tartrate [Lopressor*] 25 mg PO BID 6AM 6PM #60 tab 05/21/24 - Past Medical/Surgical History Diabetic: Yes -: Insulin Dependent Type 2 Diabetes -: Hypertension -: Emphysema -: Coronary Artery Disease -: [place] -: Cholecystectomy -: Cardiac cath with stents -: Hysterectomy Psychosocial/ Personal History: Patient lives at home by herself. - Family History Mother -: Diabetes, Stroke Father -: Heart disease, Cancer - Social History Smoking Status: Never smoker Smoking therapy provided: No Patient receptive to therapy: No Alcohol use: No CD- Drugs: No Caffeine use: No Place of Residence: Home Review of Systems Respiratory: Cough, Shortness of Breath, Hemoptysis, SOB with Excertion Physical Examination - Vital Signs Pulse: 120 Pulse Ox (%): 100 - Physical Exam General: Oriented x3, Cooperative, Moderate distress, Other (on bipap) HEENT: Atraumatic, Normocephalic, PERRLA Neck: Supple, 2+ carotid pulse no bruit, JVD not distended Respiratory: Diminished, Crackles/rales Cardiovascular: Normal pulses, Regular rate/rhythm, Normal S1 S2 Capillary refill: <2 Seconds Gastrointestinal: Normal bowel sounds, Soft and benign, No ascites, No tenderness Musculoskeletal: No swelling, No contractures, No erythema Neurological: Normal speech, Normal strength at 5/5 x4 extr, Sensation intact, Cranial nerves 3-12 intact - Studies Laboratory Data (last 24 hrs) 03/07/24 03/07/24 03/07/24 21:41 21:41 21:41 WBC 10.90 Hgb 11.9 L Hct 35.3 L Plt Count 395 PT 11.1 INR 1.01 APTT 29.9 Sodium 130 L Potassium 4.3 BUN 15 Creatinine 1.40 H Glucose 321 H Magnesium 2.1 Total Bilirubin 0.4 AST < 10 L ALT < 14 Alkaline Phosphatase 94 Lipase 47 Assessment and Plan - Problems (Diagnosis) (1) Atrial fibrillation with RVR Current Visit: Yes Status: Acute (2) Acute pulmonary edema Current Visit: Yes Status: Acute (3) Unstable angina Current Visit: No Status: Acute (4) Hypertension Current Visit: No Status: Chronic Qualifiers: - Plan Impression A-fib with RVR Acute diastolic CHF exacerbation Acute pulmonary edema Hypertension Diabetes mellitus History of CAD status post PCI Acute kidney injuryMay be cardiorenal Plan Will admit to the ICU Wean O2 as tolerated, weaned off BiPAP Continue Lasix IV every 12 continue Metoprolol and add cardizem po - titrate to heart rate above 90 Follow intake and output Follow BMP trend Cardiology consult with Dr. Coates in a.m. Troponin negative, follow trend Creatinine elevated 1.4, renal consult, expected to improve with diuresis Obtain TSH/uric acid/magnesium May need repeat echocardiogram Strict glycemic control with Accu-Cheks Start low-dose anticoagulation with Eliquis Full code Total time spent evaluation of patient discussion greater than 70-minute - Advance Directives Does patient have a Living Will: No Does patient have a Durable POA for Healthcare: No Physician Review: Patient Assessed, Agree with Above Assessment and Plan Time Spent Managing Pts Care (In Minutes): 65
[2024-03-07] MEDS ORDERED: ACETAMINOPHEN 500 MG TAB PO PRN (23:57)
[2024-03-07] MEDS ORDERED: ALBUTEROL 2.5 MG/3 ML NEB SOL NEB PRN (23:57)
[2024-03-07] MEDS ORDERED: MORPHINE 2 MG/ML SYR IV PRN (23:57)
[2024-03-08] MEDS ORDERED: LORAZEPAM 0.5 MG TABLET PO PRN
[2024-03-08] MEDS: FUROSEMIDE 40 MG/4 ML VIAL IV SCH
[2024-03-08] MEDS: CEFTRIAXONE 1,000 MG in NA CHLORIDE 0.9% 50 ML IVPB SCH
[2024-03-08] MEDS: INSULIN REGULAR (HUMAN) 100 UNIT/ML SQ SCH
[2024-03-08] MEDS ORDERED: HYDRALAZINE HCL 20 MG/ML VIAL IV PRN
[2024-03-08] MEDS ORDERED: BENZONATATE 100 MG CAP PO PRN
[2024-03-08] MEDS ORDERED: CEFTRIAXONE 1000 MG/VIAL ONE ×2 (01:28→20:14)
[2024-03-08] MEDS ORDERED: INSULIN REGULAR (HUMAN) 100 UNIT/ML ONE ×4 (01:44→17:07)
[2024-03-08] MEDS: INSULIN REGULAR (HUMAN) 100 UNIT/ML IV ONE (01:52)
[2024-03-08 04:30] LABS: Absolute Lymphocytes (CBC) 0.2 K/uL (0.7-4.9); Absolute Monocytes 0.1 K/uL (0.1-1.3); Absolute Neutrophil 8.7 K/uL (1.8-8.0); Basophils % 0.4 % (0-1.3); Hematocrit 30.2 % (36.0-45.0); Hemoglobin 10.4 g/dL (12.0-15.0); Lymphocytes % 2.7 % (15.3-44.8); MCH 31.1 pg (27.0-35.0); MCHC 34.5 g/dL (32.0-36.0); MCV 90.1 fL (80-100); MPV 7.2 fL (7.6-11.3); Neutrophils % 95.9 % (41.7-73.7); Platelets 328 thou/uL (152-406); RBC Red Blood Cell Count 3.35 M/uL (3.86-4.86); Red Cell Distribution Width 14.1 % (12.1-15.2)
[2024-03-08 04:51] LABS: Albumin 2.9 g/dL (3.4-5.0); Albumin/Globulin Ratio 0.9 (1.1-1.8); Alkaline Phosphatase 81 U/L (45-117); Anion Gap 8.2 mEq/L (5.0-15.0); BUN Blood Urea Nitrogen 21 mg/dL (7-18); Band Neutrophils 23 % (0-1); Bicarbonate 26 mEq/L (21-32); Bilirubin Total 0.3 mg/dL (0.2-1.0); Differential Total Cells Count 100; Globulin 3.3 g/dL (2.3-3.5); Glomerular Filtration Rate 28 ml/min (=/>90); Glucose Level 354 mg/dL (74-106); Lymphocytes 7 % (15-42); Monocytes 1 % (0-10); Myelocytes 1 % (0-0); Potassium 4.2 mEq/L (3.5-5.1); Protein, Total 6.2 g/dL (6.4-8.2); Segmented Neutrophils 68 % (40-80); Sodium Level 131 mEq/L (136-145); Thyroid Stimulating Hormone 0.147 uIU/mL (0.358-3.740)
[2024-03-08 04:52] LABS: ALT/SGPT < 14 U/L (13-56); AST/SGOT < 10 U/L (15-37); Blood Morphology Comment NOT SEEN (NOT SEEN); Platelet Estimate ADEQ
[2024-03-08] MEDS: METOPROLOL TAR 25 MG TAB PO SCH (05:54)
[2024-03-08] MEDS ORDERED: DILTIAZEM HCL 60 MG TAB PO SCH (06:00)
[2024-03-08] MEDS ORDERED: METOPROLOL TAR 25 MG TAB PO SCH (06:00)
[2024-03-08] MEDS: DILTIAZEM HCL 60 MG TAB PO SCH (06:00)
[2024-03-08] MEDS: METFORMIN HCL 500 MG TAB PO SCH (08:00)
[2024-03-08] MEDS: ASPIRIN EC 81 MG TAB PO SCH (09:00)
[2024-03-08] MEDS ORDERED: FAMOTIDINE 20 MG TAB PO SCH (09:00)
[2024-03-08] MEDS: CLOPIDOGREL 75 MG TABLET PO SCH (09:00)
[2024-03-08] MEDS: FAMOTIDINE 20 MG TAB PO SCH (09:00)
[2024-03-08] MEDS: APIXABAN 2.5 MG TABLET PO SCH (09:00)
[2024-03-08] MEDS ORDERED: CLOPIDOGREL 75 MG TABLET ONE (09:22)
[2024-03-08] MEDS ORDERED: FAMOTIDINE 20 MG TAB ONE (09:23)
[2024-03-08] MEDS ORDERED: ASPIRIN EC 81 MG TAB PO ONE (09:23)
[2024-03-08] MEDS ORDERED: METFORMIN HCL 500 MG TAB ONE (09:23)
[2024-03-08] MEDS ORDERED: FUROSEMIDE 40 MG/4 ML VIAL ONE ×2 (09:24→17:06)
--- NOTE | 2024-03-08 12:12 | P.CNS ---
Date of Consult: 03/08/24 Chief Complaint: Cough with shortness of breath History of Present Illness: Patient with PMH of HTN, HLD, CAD s/p PCI presented with worsening SOB, SRINIVASAN and palpitations, also metion coughing with pink frothy sputum that has been going on for few days, no syncope. Allergies levofloxacin [From Levaquin] Adverse Reaction (Verified 01/31/23 08:20) "Confusion" Home Medications: Insulin Detemir [Levemir] 28 units SQ DAILY 12/26/22 Lisinopril [Zestril] 20 mg PO DAILY 12/26/22 Clopidogrel Bisulfate [Plavix*] 75 mg PO DAILY 01/31/23 Metformin HCl [Glucophage*] 750 mg PO DAILY 01/31/23 Metoprolol Tartrate [Lopressor*] 25 mg PO BID 6AM 6PM #60 tab 02/21/24 Aspirin [Aspirin EC] 81 mg PO DAILY 03/08/24 - Past Medical/Surgical History Diabetic: Yes -: Insulin Dependent Type 2 Diabetes -: Hypertension -: Emphysema -: Coronary Artery Disease -: [place] -: Cholecystectomy -: Cardiac cath with stents -: Hysterectomy Psychosocial/ Personal History: Patient lives at home by herself. - Family History Mother Medical History: Diabetes, Stroke Father Medical History: Heart disease, Cancer - Social History Alcohol use: No CD- Drugs: No Caffeine use: Yes Place of Residence: Home Review of Systems 10-point ROS is otherwise unremarkable Physical Examination Temp Pulse Resp BP Pulse Ox 98.2 F 65 18 152/54 H 98 03/08/24 08:00 03/08/24 08:00 03/08/24 08:00 03/08/24 08:00 03/08/24 08:00 General: Alert, In no apparent distress HEENT: Atraumatic, PERRLA, Mucous membr. moist/pink, EOMI, Sclerae nonicteric Neck: Supple, 2+ carotid pulse no bruit, No LAD, Without JVD or thyroid abnormality Respiratory: Clear to auscultation bilaterally, Normal air movement Cardiovascular: Regular rate/rhythm, Normal S1 S2 Gastrointestinal: Normal bowel sounds, No tenderness Musculoskeletal: No tenderness Integumentary: No rashes Neurological: Normal gait, Normal speech, Normal tone, Normal affect Lymphatics: No axilla or inguinal lymphadenopathy Laboratory Data (last 24 hrs) 03/07/24 03/07/24 03/07/24 21:41 21:41 21:41 WBC 10.90 Hgb 11.9 L Hct 35.3 L Plt Count 395 PT 11.1 INR 1.01 APTT 29.9 Sodium 130 L Potassium 4.3 BUN 15 Creatinine 1.40 H Glucose 321 H Magnesium 2.1 Total Bilirubin 0.4 AST < 10 L ALT < 14 Alkaline Phosphatase 94 Lipase 47 - Problems (1) Acute pulmonary edema Current Visit: Yes Status: Acute Plan: agree with IV lasix monitor input and output and correct electrolytes. (2) Atrial fibrillation with RVR Current Visit: Yes Status: Acute Plan: continue lopressor 25 mg po BID D/C Diltazem Continue Eliquis. (3) Hypertension Current Visit: No Status: Chronic Plan: medications as above. Qualifiers:
--- NOTE | 2024-03-08 13:22 | P.PN ---
Subjective Date of Service: 03/08/24 Chief Complaint: Cough with shortness of breath Pt is resting comfortably in bed. She denies any chest pain but reports SOB. Pt is getting lasix for pulm edema. Cardiology has been consulted. No other complaints. Review of Systems General: Unremarkable Eyes: Unremarkable ENT: Unremarkable Respiratory: SOB with Excertion Cardiovascular: Unremarkable Gastrointestinal: Unremarkable Genitourinary: Unremarkable Musculoskeletal: Unremarkable Integumentary: Unremarkable Neurological: Unremarkable Lymphatics: Unremarkable Physical Examination - Vital Signs Temperature: 98.2 F Blood Pressure: 152/54 Pulse: 65 Respirations: 18 Pulse Ox (%): 98 - Physical Exam General: Alert, In no apparent distress, Oriented x3 HEENT: Atraumatic, Normocephalic, PERRLA Neck: Supple, 2+ carotid pulse no bruit, JVD not distended Respiratory: Clear to auscultation bilaterally, Normal air movement Cardiovascular: No edema, Normal pulses, Regular rate/rhythm, Normal S1 S2 Capillary refill: <2 Seconds Gastrointestinal: Normal bowel sounds, Soft and benign, Non-distended Musculoskeletal: No clubbing, No swelling, No contractures Integumentary: No rashes, No breakdown, No significant lesion Neurological: Normal speech, Normal strength at 5/5 x4 extr, Normal tone, Sensation intact Lymphatics: No axilla or inguinal lymphadenopathy - Studies Laboratory Data (last 24 hrs) 03/07/24 03/07/24 03/07/24 21:41 21:41 21:41 WBC 10.90 Hgb 11.9 L Hct 35.3 L Plt Count 395 PT 11.1 INR 1.01 APTT 29.9 Sodium 130 L Potassium 4.3 BUN 15 Creatinine 1.40 H Glucose 321 H Magnesium 2.1 Total Bilirubin 0.4 AST < 10 L ALT < 14 Alkaline Phosphatase 94 Lipase 47 Assessment And Plan - Plan A-fib with RVR: Will continue telemetry, metoprolol and eliquis. cardiology is following. Off Diltiazem drip Acute diastolic CHF exacerbation: Will continue lasix, strict I/O and daily weight. Hyponatremia: N ais 131. Will monitor NA level. Likely due to hypervolemia. Acute pulmonary edema: Continue lasix. Hypertension: Continue metoprolol. Diabetes mellitus: Continue accuchek, SSI and ADA diet. History of CAD status post PCI: Continue home med Acute kidney injury: Likely cardiorenal. cr is 1.77 <- 1.44. Will avoid nephrotoxins and monitor renal function. DVT ppx: eliquis Code: Full code Physician Review: Patient Assessed, Agree with Above Assessment and Plan
--- NOTE | 2024-03-08 14:31 | RAD REPORT ---
EXAM DESCRIPTION: US - Renal Ultrasound-Complete - 03/08/2024 1:19 pm CLINICAL HISTORY: JADIEL COMPARISON: Abdomen Pelvis Wo Contrast dated 11/18/2023; Angio Aorta For Dissection dated TECHNIQUE: Sonographic grayscale and color flow images of the kidneys and bladder were obtained. FINDINGS: Both kidneys are normal in size, shape, and echotexture. The right kidney measures 9.4 cm in length. Mild hydronephrosis. No focal mass, or echogenic calculi. The left kidney measures 8.9 cm in length. Mild prominence of the calyces, although renal pelvis is n ot distended. No focal mass, or echogenic calculi. The urinary bladder is decompressed with Bond catheter in place, limiting evaluation. IMPRESSION: Mild right hydronephrosis. Mild prominence of the left renal calyces without renal pelvi s dilation. No echogenic calculi. Limited evaluation of the urinary bladder, which is decompressed with Bond catheter in place.
[2024-03-08] MEDS ORDERED: HEPARIN/D5W 25,000 UNIT/500 ML BAG IV ONE (15:54)
[2024-03-08] MEDS: HEPARIN/D5W 25,000 UNIT/500 ML BAG IV SCH (15:57)
[2024-03-08] MEDS: HEPARIN 5000 UNIT/ML 1 ML VIAL IV ONE (16:15)
[2024-03-08] MEDS ORDERED: HEPARIN 5000 UNIT/ML 1 ML VIAL ONE (16:17)
[2024-03-08] MEDS ORDERED: METOPROLOL TAR 25 MG TAB ONE (17:06)
--- NOTE | 2024-03-08 17:27 | CON ---
Date of Consultation: 03/08/2024 Reason For Consultation: Elevated BUN and creatinine, fluid management. History Of Present Illness: This is a pleasant 88-year-old female with significant past medical hist ory of hypertension, diabetes since 1989, complicated with neuropathy, hyperlipidemia, CAD, status po st PCI, the patient came to the hospital complaining from shortness of breath, hypoxemia found to be saturation down to 66, found to have elevation in BUN and creatinine, and creatinine 1.4. For that r rukhsana, we have been consulted. Patient's baseline creatinine is 1.1 as of January with GFR of 51. Curre ntly, creatinine 1.7, GFR of 28. Patient denied taking any nonsteroidal. No IV contrast. Patient f ound to have AFib with RVR. The patient's home medications include lisinopril with insulin. Again, no nonsteroidals. No IV contrast. Past Medical History: Includes: 1.Diabetes complicated with neuropathy. 2.Hypertension. 3.Emphysema. 4.CAD, status post PCI. 5.COPD. Home Medications: Includes insulin, lisinopril, Plavix, metformin, and metoprolol. Past Surgical History: Includes cardiac cath, hysterectomy, PCI. Family History: Positive for CVA, diabetes, and hypertension. Social History: Denied smoking. Denied drinking. Denied drugs abuse. Review of Systems: Head and Neck: No red eye. No ear pain. GI: No nausea. No vomiting. : No polyuria. No dysuria. No hematuria. SENIOR RD ENGINEER: No vaginal discharge. Respiratory: Has shortness of breath. Cardiovascular: Has orthopnea. Has leg swelling. Endocrine: No polydipsia. Skin: No rash. Physical Examination: Vital Signs: When I saw the patient, blood pressure 152/54, pulse of 65, afebrile. Chest: Crackles, bilateral. Heart: S1, S2. Systolic murmur. Regular. Abdomen: Soft, nontender. Extremity: Trace edema. Neurologic: Alert. No focality. Laboratory Data: For the patient, back in January, creatinine 1, GFR 51. Upon admission yesterday, sodi um 130, potassium 4.3, bicarb 23, BUN 15, creatinine 1.4, GFR of 37, blood sugar 400, calcium 9.4. B INFORMATION SYSTEMS SECURITY ANALYST 1024. Today, lab data; sodium 131, potassium 4.2, bicarb 26, BUN 21, creatinine 1.7, GFR 28, bloo d sugar 322, calcium 9.1. TSH 0.1. Current Medications: The patient on includes ceftriaxone, aspirin, Eliquis, Plavix, diltiazem 30 t.i .d., metoprolol, lorazepam, Lasix 40 every 8 hours, Zofran, metformin, insulin. Assessment And Plan: 1.Acute kidney injury, mostly secondary to cardiorenal, poor perfusion ATN, with atrial fibrillation superimposed with KOFI inhibitor. a.I am going to discontinue metformin. I agree with holding lisinopril. I agree with the current d ose of Lasix. I am going to go ahead and send for basic workup and we will follow up the patient bharath vizcaino. 2.Hypertension with the presence of acute kidney injury. Hold KOFI inhibitor. We will utilize the b lood pressure for more diuresis. 3.Hyponatremia secondary to dilutional secondary to cardiorenal syndrome. We will continue diuresis and we will follow up. 4.Congestive heart failure with exacerbation, as by Cardiology. We will optimize the fluid status. 5.Atrial fibrillation with rapid ventricular response. Follow up with Cardiology and Primary. 6.Diabetes, as by Primary. Discontinue metformin given the acute kidney injury and congestive heart failure. Time spent examining the patient [id number], reviewing data, lab and radiology, placing order, disc ussing the case with the patient, discussing the case with the steam cleaner including hospitalist and nursing staff more than 75 minutes. HI Voice ID: [id number] Report ID: [id number]
[2024-03-08] MEDS ORDERED: PNEUMOCOCCAL VACCINE 0.5 ML IMVAC ONE (20:00)
[2024-03-08] MEDS ORDERED: NA CHLORIDE 0.9% 100 ML ONE (20:14)
[2024-03-08] MEDS: ONDANSETRON 4 MG/2 ML VIAL IV PRN (21:39)
[2024-03-08 22:16] VITALS: BMI 20.6
[2024-03-08] MEDS: MELATONIN 5 MG TABLET PO PRN (23:17)
[2024-03-09 05:21] LABS: Absolute Lymphocytes (CBC) 1.1 K/uL (0.7-4.9); Absolute Monocytes 0.8 K/uL (0.1-1.3); Absolute Neutrophil 15.1 K/uL (1.8-8.0); Basophils % 0.2 % (0-1.3); Eosinophils % 0.2 % (0-4.4); Hematocrit 30.3 % (36.0-45.0); Hemoglobin 10.2 g/dL (12.0-15.0); Lymphocytes % 6.2 % (15.3-44.8); MCH 30.1 pg (27.0-35.0); MCHC 33.6 g/dL (32.0-36.0); MCV 89.5 fL (80-100); MPV 7.5 fL (7.6-11.3); Monocytes % 4.5 % (3.3-12.3); Platelets 343 thou/uL (152-406); RBC Red Blood Cell Count 3.39 M/uL (3.86-4.86); Red Cell Distribution Width 14.1 % (12.1-15.2)
[2024-03-09 05:26] LABS: Neutrophils % 88.9 % (41.7-73.7)
[2024-03-09 05:31] LABS: Albumin 2.8 g/dL (3.4-5.0); Anion Gap 5.6 mEq/L (5.0-15.0); Phosphorus 3.9 mg/dL (2.5-4.9); Potassium 3.6 mEq/L (3.5-5.1); Uric Acid 6.2 mg/dL (2.6-6.0)
--- NOTE | 2024-03-09 07:13 | ECHO ---
HEIGHT: 5 ft 5 in WEIGHT: 124 lb 0 oz DATE OF STUDY: 03/08/[address]: Albina Morin MD 2-DIMENSIONAL: YES M.MODE: YES DOPPLER: YES COLOR FLOW: YES TDS: PORTABLE: YES DEFINITY: BUBBLE STUDY: DIAGNOSIS: CEREBRAL VASCULAR ACCIDENT CARDIAC HISTORY: CATHERIZATION: YES SURGERY: NO PROSTHETIC VALVE: NO PACEMAKER: NO MEASUREMENTS (cm) DIASTOLIC (NORMALS) SYSTOLIC (NORMALS) IVSd 1.1 (0.6-1.2) LA Diam 3.1 (1.9-4.0) LVEF 60-65% LVIDd 4.1 (3.5-5.7) LVIDs 2.6 (2.0-3.5) %FS 37% LVPWd 1.1 (0.6-1.2) Ao Diam 2.5 (2.0-3.7) 2 DIMENSIONAL ASSESSMENT: RIGHT ATRIUM: NORMAL LEFT ATRIUM: NORMAL RIGHT VENTRICLE: NORMAL LEFT VENTRICLE: NORMAL TRICUSPID VALVE: MILD TRICUPSID REGURGITATION MITRAL VALVE: MILD MITRAL REGURGITATION PULMONIC VALVE: NORMAL AORTIC VALVE: NORMAL PERICARDIAL EFFUSION: NONE AORTIC ROOT: NORMAL LEFT VENTRICULAR WALL MOTION: NORMAL DOPPLER/COLOR FLOW: GRADE I DIASTOLIC DYSFUNCTION COMMENTS: 1. NORMAL LEFT VENTRICULAR SYSTOLIC FUNCTION, EJECTION FRACTION 60-65%, NORMAL WALL MOTION 2. GRADE I DIASTOLIC DYFUNCTION 3. MILD MITRAL REGURGITATION, MILD TRICUSPID REGURGITATION, MILD PULMONARY HYPERTENSION (RIGHT VENTRICULAR SYSTOLIC PRESSURE 40-45 mmHg) 4. MILD ELEVATED FILLING PRESSURE (RIGHT ATRIUM 10-15 mmHg) TECHNOLOGIST: EDILSON SOLIMAN
--- NOTE | 2024-03-09 12:18 | P.PN ---
Subjective Date of Service: 03/09/24 Chief Complaint: Cough with shortness of breath Pt is resting comfortably in bed. She denies any chest pain but reports SOB. Pt is getting lasix for pulm edema. Troponin became elevated yesterday and we made her NPO. Cardiology has been consulted for possible Cardiac cath. No other c omplaints. Review of Systems General: Unremarkable Eyes: Unremarkable ENT: Unremarkable Respiratory: Unremarkable Cardiovascular: Unremarkable Gastrointestinal: Unremarkable Genitourinary: Unremarkable Musculoskeletal: Unremarkable Integumentary: Unremarkable Neurological: Unremarkable Lymphatics: Unremarkable Physical Examination - Vital Signs Temperature: 97.2 F Blood Pressure: 147/61 Pulse: 60 Respirations: 16 Pulse Ox (%): 100 - Physical Exam General: Alert, In no apparent distress, Oriented x3 HEENT: Atraumatic, Normocephalic, PERRLA Neck: Supple, 2+ carotid pulse no bruit, JVD not distended Respiratory: Clear to auscultation bilaterally, Normal air movement Cardiovascular: No edema, Normal pulses, Regular rate/rhythm, Normal S1 S2 Capillary refill: <2 Seconds Gastrointestinal: Normal bowel sounds, Soft and benign, Non-distended Musculoskeletal: No clubbing, No swelling Integumentary: No rashes, No breakdown, No significant lesion Neurological: Normal speech, Normal strength at 5/5 x4 extr, Normal tone, Sensation intact Lymphatics: No axilla or inguinal lymphadenopathy Assessment And Plan - Plan A-fib with RVR: Will continue telemetry, metoprolol and heparin drip. cardiology is following. Off Diltiazem drip NSTEMI: troponin trend ( 535 <- 627 <- 24). Will continue heparin drip. Consulted cardiology for possible cardiac cath. She is NPO. Acute diastolic CHF exacerbation: Will continue lasix, strict I/O and daily weight. Acute resp failure with hypoxia: Due to CHF exacerbation. Will continue oxygen and prn duoneb. Hyponatremia: Na is 132. Will monitor NA level. Likely due to hypervolemia. Acute pulmonary edema: Continue lasix. Hypertension: Continue metoprolol. Diabetes mellitus: Continue accuchek, SSI, lantus 30u daily, and ADA diet. History of CAD status post PCI: Continue home med Acute kidney injury: Likely cardiorenal. cr is 1.69 <- 1.77 <- 1.44. Will avoid nephrotoxins and monitor renal function. DVT ppx: eliquis Code: Full code Physician Review: Patient Assessed, Agree with Above Assessment and Plan
--- NOTE | 2024-03-09 12:51 | P.PN ---
Subjective Date of Service: 03/09/24 Chief Complaint: Cough with shortness of breath Subjective: No new changes, No C/O voiced, Tolerating diet, Ambulating, Improving Review of Systems 10-point ROS is otherwise unremarkable Physical Examination - Vital Signs Temperature: 97.2 F Blood Pressure: 147/61 Pulse: 60 Respirations: 16 Pulse Ox (%): 100 - Physical Exam General: Alert, In no apparent distress HEENT: Atraumatic, PERRLA, EOMI Neck: Supple, JVD not distended Respiratory: Clear to auscultation bilaterally, Normal air movement Cardiovascular: Regular rate/rhythm, Normal S1 S2 Gastrointestinal: Normal bowel sounds, No tenderness Musculoskeletal: No tenderness Integumentary: No rashes Neurological: Normal speech, Normal tone, Normal affect Lymphatics: No axilla or inguinal lymphadenopathy - Studies Medications List Reviewed: Yes Assessment And Plan - Current Problems (Diagnosis) (1) Acute pulmonary edema Current Visit: Yes Status: Acute Plan: cut back on IV lasix to 40 mg BID for one more day monitor input and output and correct electrolytes. (2) Atrial fibrillation with RVR Current Visit: Yes Status: Acute Plan: continue lopressor 25 mg po BID D/C Diltazem Continue Eliquis. (3) Hypertension Current Visit: No Status: Chronic Plan: medications as above. Qualifiers: (4) Elevated troponin Current Visit: Yes Status: Acute Plan: although patient known to have CAD but it was not amenable to PCI due to complexity, patient is not having chest pain, troponin leak most likely type 2 due to AF, JADIEL, no need for further cardiac work up at this time. Physician Review: Patient Assessed, Agree with Above Assessment and Plan
[2024-03-09 16:18] LABS: Specific Gravity 1.007 (1.005-1.030); Sqamous Epithelial <5 /HPF (None Seen); Urine Bacteria None Seen /HPF (<20); Urine Bilirubin NEGATIVE (Negative); Urine Blood Negative (Negative); Urine Clarity Clear (Clear); Urine Color Colorless (Yellow); Urine Culture Reflex Order NOT NEEDED; Urine Glucose NEGATIVE (Negative); Urine Ketones NEGATIVE (Negative); Urine Microscopic Reflex YN ORDER UMIC; Urine Mucus Slight /HPF (None Seen); Urine Nitrite NEGATIVE (Negative); Urine Protein TRACE (Negative); Urine RBC <5 /HPF (None Seen); Urine Urobilinogen Normal (Normal); Urine WBC <5 /HPF (<5); Urine pH 6.5 (5.0-7.0)
[2024-03-09 16:19] LABS: UR PROTEIN 28.3 mg/dL (<11.9)
[2024-03-09 16:24] LABS: UR CREAT < 18.0 mg/dL (20-320)
[2024-03-09] MEDS: FUROSEMIDE 40 MG/4 ML VIAL IV SCH (16:56)
[2024-03-09] MEDS ORDERED: MORPHINE 4 MG/ML SYR IV PRN (18:24)
--- NOTE | 2024-03-09 21:53 | RAD REPORT ---
EXAM DESCRIPTION: [facility] Protocol - 03/09/2024 9:29 pm CLINICAL HISTORY: darshana , hydronephrosis COMPARISON: Abdomen Pelvis Wo Contrast dated 11/18/2023; Abdomen Pelvis Wo Contrast dated 12/28/19 23; Renal Ultrasound-Complete dated 03/08/2024; Angio Aorta For Dissection dated 02/20/2024 TECHNIQUE: CT of the abdomen and pelvis was performed. All CT scans are performed using dose optimization technique as appropriate and may include automated exposure control or mA/KV adjustment according to patient size. FINDINGS: Lower chest: Coronary artery calcifications and/or stents. Small hiatal hernia. Trace husam cardial effusion. Liver: No acute abnormality or suspicious lesions. Biliary: Cholecystectomy Stomach: No significant focal abnormality. Duodenum: No significant focal abnormality. Pancreas: Pancreatic parenchymal calcifications consistent with sequela of chronic pancreatitis. Limi eric evaluation without IV contrast. No evidence acute pancreatitis. Spleen: No significant abnormality. Adrenal: No suspicious lesions. Kidney/ureter: No hydronephrosis. No renal calculi. Mild renal cortical thinning. Mild nonspecific pe rinephric stranding. Retroperitoneum: No retroperitoneal adenopathy. Vascular: No aneurysm. Atherosclerosis. Bowel: Moderate stool in the colon.. Peritoneum: No ascites or free air. Bladder: Distended otherwise unremarkable Reproductive: No adnexal masses. Bones: No acute fracture. The inferior endplate deformity at L2 and superior endplate deformity at L4 consistent with subacute and/or chronic compression fractures. Mild superior endplate deformity L3 a lso noted but unchanged. Other: n/a IMPRESSION: No acute intra-abdominal or pelvic finding. Specifically, no hydronephrosis or either re nal or ureteral calculi. Incidental findings as noted above.
--- NOTE | 2024-03-10 00:44 | PN ---
Date of Progress Note: 03/09/2024 Chief Complaint: Acute kidney injury on chronic kidney disease. Subjective: Renal consultation was requested for elevated BUN and creatinine. The patient was admit eric to ICU. The patient is an 88-year-old woman with past medical history significant for hypertensi on; diabetes mellitus, complicated by neuropathy; and kidney disease. She has history of hyperlipide laci and coronary artery disease. She underwent PCI. The patient came to the hospital complaining of shortness of breath. She was found to have hypoxemia, SpO2 was 66%. Creatinine level was 1.4 and h as been elevated up to 1.7 during this admission. The patient denied taking nonsteroidal anti-inflam matory medication. She denies IV contrast exposure. The patient was found to have atrial fibrillati on with rapid ventricular response. The patient has diabetes mellitus and hypertension. She was johnathon ing lisinopril for blood pressure control and insulin for diabetic management. Review of Systems: Constitutional: The patient denies fever, chills. Eyes: Denies vision changes. Ears, Nose, Mouth, and Throat: Denies sore throat, earache. Respiratory: Denies PND, orthopnea. Has some dyspnea on exertion. Currently, the patient is bedbou nd. Genitourinary: Denies dysuria or hematuria. Physical Examination: General: The patient is awake, alert, follows commands. Lungs: Equal chest expansion. Few crackles at bases. Heart: S1, S2. 2/6 systolic murmur, left lower sternal border. Abdomen: Soft, nontender. Extremities: Trace edema. Impression And Plan: 1.Acute kidney injury secondary to cardiorenal syndrome, renal hypoperfusion related to atrial fibri llation with rapid ventricular response, superimposed with KOFI inhibitor effect. 2.Diabetes mellitus with renal manifestation. Metformin was stopped due to risk of complication fro m metformin in setting of acute kidney injury. The patient does not have metabolic acidosis. Bicarb darlin level was 23 and potassium 4.3. 3.Hyponatremia secondary to dilutional effect and cardiorenal syndrome. Continue diuretics. The pa marlee will continue Lasix. She is not a candidate for hydrochlorothiazide. Sodium level was 130. R ecommend to check TSH level. 4.Congestive heart failure with exacerbation, acute on chronic diastolic dysfunction, congestive hea rt failure with dyspnea. Continue to monitor troponin level. Cardiology consultation was obtained. The patient has atrial fibrillation with rapid ventricular response and she will have medication adj usted by associate director of sales. 5.Hypertension. The patient has acute kidney injury. Plan is to hold KOFI inhibitor due to acute ki dney injury. JAELYN/MODL Voice ID: [id number] Report ID: [id number]
[2024-03-10 05:10] LABS: Absolute Basophils 0.1 K/uL (0-0.5); Absolute Eosinophils 0.2 K/uL (0-0.5); Absolute Monocytes 0.7 K/uL (0.1-1.3); Absolute Neutrophil 4.9 K/uL (1.8-8.0); Basophils % 1.1 % (0-1.3); Eosinophils % 2.6 % (0-4.4); Hematocrit 31.1 % (36.0-45.0); Hemoglobin 10.8 g/dL (12.0-15.0); Lymphocytes % 14.1 % (15.3-44.8); MCHC 34.7 g/dL (32.0-36.0); MCV 89.4 fL (80-100); MPV 7.2 fL (7.6-11.3); Monocytes % 10.3 % (3.3-12.3); Neutrophils % 71.9 % (41.7-73.7); Nucleated Red Blood Cells % 0.1 % (0-0); Platelets 335 thou/uL (152-406); RBC Red Blood Cell Count 3.48 M/uL (3.86-4.86)
[2024-03-10 05:21] LABS: Albumin 2.8 g/dL (3.4-5.0); Anion Gap 10.2 mEq/L (5.0-15.0); Phosphorus 4.4 mg/dL (2.5-4.9); Potassium 3.2 mEq/L (3.5-5.1)
[2024-03-10] MEDS: APIXABAN 2.5 MG TABLET PO SCH (08:29)
[2024-03-10] MEDS: INSULIN GLARGINE 100 UNIT/ML SQ SCH (08:30)
[2024-03-10 08:52] VITALS: TEMP 97.6
[2024-03-10] MEDS ORDERED: INSULIN GLARGINE 100 UNIT/ML SQ SCH (09:00)
[2024-03-10 09:16] VITALS: O2SAT 97
[2024-03-10] MEDS: POTASSIUM CL SA 10 MEQ TAB PO ONE (10:25)
[2024-03-10] MEDS: SODIUM CHLORIDE 1 GM TAB PO ONE (10:26)
[2024-03-10 10:31] VITALS: BP 131/62
--- NOTE | 2024-03-10 10:51 | P.PN ---
Subjective Date of Service: 03/10/24 Chief Complaint: Cough with shortness of breath Subjective: Improving, Doing well Review of Systems 10-point ROS is otherwise unremarkable Physical Examination - Vital Signs Temperature: 97.6 F Blood Pressure: 131/62 Pulse: 55 Respirations: 11 Pulse Ox (%): 100 - Physical Exam General: Alert, In no apparent distress HEENT: Atraumatic, PERRLA, EOMI Neck: Supple, JVD not distended Respiratory: Clear to auscultation bilaterally, Normal air movement Cardiovascular: Regular rate/rhythm, Normal S1 S2 Gastrointestinal: Normal bowel sounds, No tenderness Musculoskeletal: No tenderness Integumentary: No rashes Neurological: Normal speech, Normal tone, Normal affect Lymphatics: No axilla or inguinal lymphadenopathy - Studies Medications List Reviewed: Yes Assessment And Plan - Current Problems (Diagnosis) (1) Acute pulmonary edema Current Visit: Yes Status: Acute Plan: change Lasix to 40 mg daily KCL 20 Meq daily monitor input and output and correct electrolytes. (2) Atrial fibrillation with RVR Current Visit: Yes Status: Acute Plan: continue lopressor 25 mg po BID Continue Eliquis. (3) Hypertension Current Visit: No Status: Chronic Plan: medications as above. Qualifiers: (4) Elevated troponin Current Visit: Yes Status: Acute Plan: although patient known to have CAD but it was not amenable to PCI due to complexity, patient is not having chest pain, troponin leak most likely type 2 due to AF, JADIEL, no need for further cardiac work up at this time. Physician Review: Patient Assessed, Agree with Above Assessment and Plan
--- NOTE | 2024-03-10 11:08 | P.DS ---
Admission Date: 03/07/24 Discharge Date: 03/10/24 Discharge Condition: GOOD Reason for Admission: Cough with shortness of breath Brief History of Present Illness: 88-year-old female with past medical history of HTN/DM/HLD/CAD status post PCI in the past; who presented to the hospital via EMS after developing worsening cough with frothy pink blood-tinged sputum today at home. On arrival in the EMS patient O2 sat was 66% on room air. She was initiated on high flow O2 and later switched to BiPAP on arrival in the ED. She denies any fever or chills. She denies any chest pain. On arrival in the ED vital signs showed blood pressure in the 180s over 90s, heart rate in the 130s, in A-fib with RVR. Noted on EKG, chest x-ray shows moderate pulmonary edema with possible underlying pneumonia. proBNP was little elevated at 1086, troponin was normal. Creatinine 1.4 with baseline of 0.9-1.1, ABG shows pH of 7.34 with normal pCO2. Patient was given IV Cardizem/Lasix IV as well as midline prednisolone. Heart rate improved to the 115 she was started on Cardizem drip and converted to normal sinus rhythm within an hour after which initiated. Cardizem drip has been held. BiPAP been weaning down to 02 nasal cannula now. Noted intermittent drop in HR to 45 after off cardizem gtt. She has been admitted for A-fib with RVR, pulmonary edema with acute hypoxic respiratory failure Hospital Course: Pt is a 88yo female with past medical history of HTN/DM/HLD/CAD status post PCI in the past who presented to the hospital via EMS after developing worsening cough with frothy pink blood-tinged sputum. On arrival in the EMS patient O2 sat was 66% on room air. She was initiated on high flow O2 and later switched to BiPAP on arrival in the ED. On arrival in the ED vital signs showed blood pressure in the 180s over 90s, heart rate in the 130s, in A-fib with RVR. Noted on EKG, chest x-ray showed moderate pulmonary edema with possible underlying pneumonia. proBNP was elevated at 1086, troponin was normal. Creatinine 1.4 w ith baseline of 0.9-1.1, ABG shows pH of 7.34 with normal pCO2. We gave pt iv cardizem and lasix. Heart rate improved to the 115 and we started cardiazem drip. Pt converted to normal sinus rhythm. We weaned her off BIPAP and continued 4l BNC ( baseline). The troponin trended up and we kept pt NPO for possible cardiac cath. Cardiology evaluated pt and attributed the elevated troponin to known CAD that was not amenable to stent placement. No further cardiac work up. We stopped heparin drip and started Eliquis 2.5mg BID, lasix 40mg po daily and KCL 20meq po daily with other home meds. Pt was in NAD prior to discharge. Vital Signs/Physical Exam: Temp Pulse Resp BP Pulse Ox 97.6 F 55 11 L 131/62 100 03/10/24 10:51 03/10/24 10:51 03/10/24 10:51 03/10/24 10:51 03/10/24 10:51 Laboratory Data at Discharge: WBC 6.80 thou/uL (4.3-10.9) 03/10/24 04:35 Hgb 10.8 g/dL (12.0-15.0) L 03/10/24 04:35 Hct 31.1 % (36.0-45.0) L 03/10/24 04:35 Plt Count 335 thou/uL (152-406) 03/10/24 04:35 PT 11.1 SECONDS (9.5-12.5) 03/07/24 21:41 INR 1.01 03/07/24 21:41 APTT Cancelled 03/10/24 10:00 Sodium 131 mEq/L (136-145) L 03/10/24 04:35 Potassium 3.2 mEq/L (3.5-5.1) L 03/10/24 04:35 BUN 37 mg/dL (7-18) H 03/10/24 04:35 Creatinine 1.60 mg/dL (0.55-1.02) H 03/10/24 04:35 Glucose 216 mg/dL (74-106) H 03/10/24 04:35 Uric Acid 6.2 mg/dL (2.6-6.0) H 03/09/24 04:49 Phosphorus 4.4 mg/dL (2.5-4.9) 03/10/24 04:35 Magnesium 1.9 mg/dL (1.6-2.4) 03/10/24 04:35 Total Bilirubin 0.3 mg/dL (0.2-1.0) 03/08/24 04:06 AST < 10 U/L (15-37) L 03/08/24 04:06 ALT < 14 U/L (13-56) 03/08/24 04:06 Alkaline Phosphatase 81 U/L (45-117) 03/08/24 04:06 Lipase 47 U/L (13-75) 03/07/24 21:41 Home Medications: Insulin Detemir [Levemir] 28 units SQ DAILY 12/26/22 Lisinopril [Zestril] 20 mg PO DAILY 12/26/22 Clopidogrel Bisulfate [Plavix*] 75 mg PO DAILY 01/31/23 Metformin HCl [Glucophage*] 750 mg PO DAILY 01/31/23 Metoprolol Tartrate [Lopressor*] 25 mg PO BID 6AM 6PM #60 tab 02/21/24 Apixaban [Eliquis *] 2.5 mg PO BID 90 Days #90 tab 03/10/24 Furosemide [Lasix] 40 mg PO DAILY 60 Days #60 tab 03/10/24 Potassium Chloride 20 meq PO DAILY 30 Days #30 tab 03/10/24 New Medications: Apixaban [Eliquis *] 2.5 mg PO BID 90 Days #90 tab Furosemide [Lasix] 40 mg PO DAILY 60 Days #60 tab Potassium Chloride 20 meq PO DAILY 30 Days #30 tab Physician Discharge Instructions: Continue ad mikhail activity. Take Eliquis 2.5mg po BID and other home meds. Follow up with PCP and cardiology within 2 weeks. Diet: AHA Activity: Ad mikhail Followup: Jani Marrero MD [ACTIVE - CAN ADMIT] - Wilfred Ramos MD [Primary Care Provider] -
--- NOTE | 2024-03-10 11:49 | EKG ---
Test Date: 2024-03-07 Test Time: 21:14:51 Deckhand Maintenance: SAIDA MEASUREMENT RESULTS: Intervals: Rate: 115 DC: QRSD: 142 QT: 334 QTc: 462 [place]: P: DC: QRS: -6 T: 130 INTERPRETIVE STATEMENTS: Atrial fibrillation with rapid ventricular response Left bundle branch block Abnormal ECG Compared to ECG 02/24/2024 07:42:38 Sinus rhythm no longer present Electronically Signed On 03-10-24 11:47:45 CDT by Jani Marrero
--- NOTE | 2024-03-10 11:49 | EKG ---
Test Date: 2024-03-07 Test Time: 23:19:26 High Pressure Cleaner: ANNIE MEASUREMENT RESULTS: Intervals: Rate: 64 OK: 180 QRSD: 144 QT: 442 QTc: 455 [place]: P: 70 OK: 180 QRS: 20 T: 109 INTERPRETIVE STATEMENTS: Normal sinus rhythm Left bundle branch block Abnormal ECG Compared to ECG 03/07/2024 21:14:51 Atrial fibrillation no longer present Electronically Signed On 03-10-24 11:47:21 CDT by Jani Marrero
[2024-03-10] MEDS ORDERED: SODIUM CHLORIDE 1 GM TAB PO SCH (12:00)
--- NOTE | 2024-03-10 19:47 | PN ---
Date of Progress Note: 03/10/2024 Chief Complaint: Acute on chronic kidney injury. History Of Present Illness: Renal consultation was requested for elevated BUN and creatinine. The p tremaine was admitted to ICU. The patient is an 88-year-old woman with past medical history significan t for hypertension, diabetes mellitus, complicated by neuropathy and kidney disease. She has history of hyperlipidemia and coronary artery disease. Previously, she underwent PCI. The patient came to the hospital complaining of shortness of breath. She was found to have hypoxemia. SpO2 was 66%. Cr eatinine level was elevated up to 1.7. During this admission, an ultrasound was done, there was a qu estionable hydronephrosis. CT scan of the abdomen and pelvis without contrast did not show hydroneph rosis and there was no kidney stone present. The patient denies IV contrast exposure. Denies nonste roidal anti-inflammatory medication. The patient was taking lisinopril for blood pressure control an d insulin for diabetic management. Review of Systems: Denies chest pain, palpitation. Physical Examination: Lungs: Clear to auscultation bilaterally. Heart: S1, S2. Abdomen: Soft. Extremities: Trace edema. Impression And Plan: 1.Acute kidney injury secondary to cardiorenal syndrome, renal hypoperfusion related to atrial fibri llation with rapid ventricular response superimposed with KOFI inhibitor effect. 2.Diabetes mellitus with renal manifestation. Metformin was stopped due to risk of complication fro m metformin in setting of acute kidney injury. The patient does not have metabolic acidosis. Bicarb darlin level was 23, potassium 4.3. 3.Hyponatremia secondary to dilutional effect of cardiorenal syndrome. Continue diuretics. The pat iedot is taking Lasix. She is not a candidate for hydrochlorothiazide due to risk of worsening of the hyponatremia secondary to hydrochlorothiazide effect. ranging over 130. Recommend to ch portia TSH level. EB/MODL Voice ID: [id number] Report ID: [id number]
== END 2024-03-10 11:48 | disposition home or self-care (01) | DRG 280 ==
LOC: ER 21:11 → ERHOLD 23:57 → 3RD-ICU 03-08 20:46
PROVIDERS: ADMIT Internal Medicine; ATTEND Hospitalist
PROC: 4A033R1 Measurement of Arterial Saturation, Peripheral, Percutaneous Approach (ICD-10-PCS; principal; 2024-03-07)
PROC: 5A09457 Assistance with Respiratory Ventilation, 24-96 Consecutive Hours, Continuous Positive Airway Pressure (ICD-10-PCS; 2024-03-07)
DX: I11.0 Hypertensive heart disease with heart failure (principal); I50.33 Acute on chronic diastolic (congestive) heart failure; I21.A1 Myocardial infarction type 2; J96.01 Acute respiratory failure with hypoxia; N17.0 Acute kidney failure with tubular necrosis; J18.9 Pneumonia, unspecified organism; E87.1 Hypo-osmolality and hyponatremia; E11.40 Type 2 diabetes mellitus with diabetic neuropathy, unspecified; I48.0 Paroxysmal atrial fibrillation; K21.9 Gastro-esophageal reflux disease without esophagitis; J43.9 Emphysema, unspecified; E78.00 Pure hypercholesterolemia, unspecified; I25.110 Atherosclerotic heart disease of native coronary artery with unstable angina pectoris; I25.2 Old myocardial infarction; Z79.4 Long term (current) use of insulin; Z60.2 Problems related to living alone; Z88.1 Allergy status to other antibiotic agents; Z95.1 Presence of aortocoronary bypass graft; Z95.5 Presence of coronary angioplasty implant and graft; Z79.82 Long term (current) use of aspirin; Z79.84 Long term (current) use of oral hypoglycemic drugs; Z90.49 Acquired absence of other specified parts of digestive tract; Z79.02 Long term (current) use of antithrombotics/antiplatelets; Z79.899 Other long term (current) drug therapy; Z90.710 Acquired absence of both cervix and uterus
CPT/HCPCS: 36415; 36600; 71045; 74176; 76377; 76770; 80048; 80053; 80069; 80076; 81001; 82533; 82550; 82570; 82805; 82947; 83690; 83735; 83880; 84156; 84165; 84443; 84484; 84550; 85025; 85610; 85730; 87040; 93005; 93306; 94660; 96365; 96372; 96375; 99285; J0696; J1644; J1650; J1940; J2405; J2765; J2919

== ENCOUNTER 2024-03-16 15:20 | Inpatient (IN) | payer OTHER ==
--- OUTSIDE RECORDS SUMMARY | 2024-03-16 15:26 | XMS REPORT | Continuity of Care Document ---
Author Name Unknown Address [address] [facility] [address] [place] [address] [facility] Address [address] [facility] [address] [place] [address] Care Team Providers Care Hose Inspector And Patcher Name Role Phone Wilfred Ramos MD Primary Care Physician [phone] JAI PEDRAZA Attending Clinician UnaWILFRED Malave Attending Clinician Unavailable ADELSO FISH Attending Clinician Unavailable Wilfred Ramos MD Attending Clinician [phone] STEVEN GARNICA Attending Clinician Unavailable ANJU HANNA Attending Clinician Unavailable Anju Jackson Attending Clinician [phone] Vanessa Colvin RN Attending Clinician Unavailab le Doctor Unassigned, De Beque Attending Clinician U Rosio Sorto MD Attending Clinician + [phone] ROSIO WILLIAMSON Attending Clinician Olga Buitrago Cardiology - Clear Attending Clinician Cara OMER Hurley Attending Clinician Unavailable Omer Ruelas MD Attending Clinician [phone] Lab, Ang - Db Attending Clinician Unavailable LEEROY ALBARRAN Attending Clinician UnavailLeeroy Kaye MD Attending Clinician [phone] MARCIA MONTALVO Attending Clinician Unavailable Jamie Guzmán MD Attending Clinician [phone] JAMIE GUZMÁN Attending Clinician UnavailMarcia Eduardo Attending Clinician [phone] [facility] [phone] PERLA VILLARRELA Attending Clinician Unavail able PERLA VILLARREAL Attending Clinician Unavail able Jai Pedraza MD Attending Clinician + [phone] Only, Adc Test Attending Clinician Unavailable Dwight WALLACE Damien Trinidadan Attending Clinician [phone] Cecille RN, Meseret Attending Clinician Unavailable Aidee Nunez Attending Clinician [phone] Marguerite MONROE, Jose Attending Clinician [phone] Jewell PINEDA, Heaven Conner Attending Clinician Cara vailable Lab, Adc Fam Pob I Attending Clinician Unavailab ana maria VILLAREAL, Roberto Attending Clinician [phone] ROBERTO HURST Attending Clinician Unavailable Pob, Adc Lab Main Attending Clinician Unavailabl JAI Willingham Admitting Clinician Jai Davies MD Admitting Clinician + [phone] Jose Everett MD Admitting Clinician [phone] Payers Payer Name Policy Type Policy Number Effective Date Expirati on Date Source [employer] [id number] 2014 00:00:00 Problems Condition Name Condition Details Condition Category Status Onset Date Resolution Date Last Treatment Date Treating Clinician Comments Source Coronary artery disease involving [place] coronary artery of [place] heart without angina pectoris Coronary artery disease involving [place] coronary artery of [place] heart without angina pectoris Disease Active 03-15 00:00: [address] [facility] ST elevation myocardial infarction (STEMI), unspecifie d artery ST elevation myocardial infarction (STEMI), unspecifie d artery Disease Active 03-15 00:00: 00 [facility] Colitis, acute Colitis, acute Disease Active 10-24 00:00: 00 [facility] Essential hypertensi on Essential hypertensi on Disease Active 16 00:00: 00 [facility] Type 2 diabetes mellitus without complicati on, with long-term current use of insulin Type 2 diabetes mellitus without complicati on, with long-term current use of insulin Disease Active 02-15 00:00: 00 [facility] UTI (urinary tract infection) UTI (urinary tract infection) Disease Active 03-20 00:00: 00 [facility] Acute bilateral low back pain with sciatica Acute bilateral low back pain with sciatica Disease Active 03-20 00:00: 00 [facility] Allergies, Adverse Reactions, Alerts Allergy Name Allergy Type Status Severity Reaction(s) Onset Date Inactive Date Treating Clinician Comments Source NO KNOWN ALLERGIE S Drug Class Active [facility] Social History Social Habit Start Date Stop Date Quantity Comments Source [facility] Alcoholic beverage intake 2024-03-15 00:00:00 2024-03-15 00:00:00 Current non-drinker of alcohol (finding) [facility] Alcohol intake 2024-01-12 00:00:00 2024-01-12 00:00:00 Current non-drinker of alcohol (finding) [facility] History of Social function 2023-09-20 00:00:00 2023-09-20 00:00:00 [facility] Exposure to SARS-CoV-2 (event) 2023-02-14 00:00:00 2023-02-24 13:40:00 Not sure [facility] Tobacco use and exposure 2022-09-22 00:00:00 2022-09-22 00:00:00 Smokeless tobacco non-user [facility] Sex assigned at 1935 00:00:00 1935 00:00:00 [facility] Smoking Status Start Date Stop Date Source Never smoked tobacco [facility] Medications Ordered Medication Name Filled Medication Name Start Date Stop Date Current Medication? Ordering Clinician Indication Dosage Frequency Signature (SIG) Comments Components Source insulin detemir U-100 100 unit/mL injection 03-15 00:00: 00 Yes [id number] Take 20 units in the morning and 12 units at bedtime E11.65 [facility] HYDROcodone -acetaminop hen 7.5-325 mg per tablet 02-12 00:00: 00 Yes [id number] TAKE ONE TABLET BY MOUTH EVERY SIX HOURS NEEDED FOR PAIN INDICATION S: CHRONIC PAIN Indication s: chronic pain [facility] LISINOPRIL 20 mg tablet 12-07 00:00: 00 Yes [id number] 20mg TAKE 1 TABLET BY MOUTH IN THE MORNING. [facility] HYDROcodone -acetaminop hen 7.5-325 mg per tablet 00:00: 00 02-12 00:00 :00 No [id number] TAKE 1 TABLET BY MOUTH EVERY SIX HOURS NEEDED FOR PAIN Indication s: chronic pain [facility] metroNIDAZO LE (FLAGYL) 500 mg tablet 11-14 00:00: 00 Yes [id number] 500mg Take 1 tablet by mouth every 8 (eight) hours. [facility] ciprofloxac in HCl (CIPRO) 500 mg tablet 11-14 00:00: 00 Yes [id number] 500mg Take 1 tablet by mouth every 12 (twelve) hours. [facility] iopamidol (ISOVUE 370-500 mL) injection 80 mL 10-05 23:00: 00 10-05 22:02 :00 No [id number] 80mL 80 mL, Intravenou s, ONCE, 1 dose, On Tue10/05/23 at 1700, Routine [facility] ciprofloxac in HCl (CIPRO) 500 mg tablet 10-05 00:00: 00 Yes [id number] 500mg Take 1 tablet by mouth every 12 (twelve) hours. [facility] metroNIDAZO LE (FLAGYL) 500 mg tablet - 00:00: 00 Yes [id number] 500mg Take 1 tablet by mouth every 12 (twelve) hours. [facility] nitroglycer in 0.3 mg sublingual tablet 2022-10 00:00: [id number] 1 tablet under the tongue every 5 (five) minutes as needed for Chest pain. [facility] hydroCHLORO thiazide 12.5 mg capsule 2022-10 00:00: 00 Yes [id number] 12.5mg Take 1 capsule by mouth in the morning. [facility] escitalopra m oxalate 5 mg tablet 2022-10 00:00: 00 Yes [id number] TAKE ONE TABLET BY MOUTH IN THE MORNING. [facility] lisinopriL 20 mg tablet 2022-10 2 00:00: 00 12-07 00:00 :00 No [id number] 20mg Take 1 tablet by mouth in the morning. [facility] HYDROcodone -acetaminop hen 7.5-325 mg per tablet 2022-10 00:00: 00 00:00 :00 No 2745 TAKE 1 TABLET BY MOUTH EVERY SIX HOURS NEEDED FOR PAIN Indication s: chronic pain [facility] metformin ER 750 mg 24 hr tablet 2022-10 00:00: 00 Yes [id number] 750mg Take 1 tablet by mouth daily with breakfast. [facility] insulin detemir U-100 100 unit/mL injection 2022-10 00:00: 00 03-15 00:00 :00 No [id number] Take 20 units in the morning and 12 units at bedtime E11.65 [facility] ESCITALOPRA M OXALATE 5 mg tablet 2022-10 00:00: 00 09-21 00:00 :00 No [id number] TAKE ONE TABLET BY MOUTH IN THE MORNING. [facility] ESCITALOPRA M OXALATE 5 mg tablet 2022-10-14 00:00: 00 Yes [id number] 5mg TAKE 1 TABLET BY MOUTH IN THE MORNING. [facility] ESCITALOPRA M OXALATE 5 mg tablet 2022-10 0- 00:00: 00 Yes [id number] 5mg TAKE 1 TABLET BY MOUTH IN THE MORNING. [facility] LISINOPRIL 20 mg tablet 2022-10 0-12 00:00: 00 09-21 00:00 :00 No [id number] 20mg TAKE 1 TABLET BY MOUTH DAILY [facility] HYDROCODONE -ACETAMINOP HEN 7.5-325 mg per tablet 2023-1 0-12 00:00: 00 09-21 00:00 :00 No [id number] TAKE 1 TABLET BY MOUTH EVERY SIX HOURS NEEDED FOR PAIN [facility] HYDROCODONE -ACETAMINOP HEN 7.5-325 mg per tablet 18 00:00: 00 Yes [id number] TAKE 1 TABLET BY MOUTH EVERY SIX HOURS NEEDED FOR PAIN [facility] Insulin [place], Disposable, (PEN NEEDLE) 32 gauge x 5/32" Ndle 05-17 00:00: 00 Yes [id number] Use as directed daily E11.65 [facility] Lancets (ACCU-CHEK SOFTCLIX LANCETS) [facility] [place]17 00:00: 00 Yes Use as directed to check blood sugars twice daily E11.65 [facility] Blood-Gluco se Meter (ACCU-CHEK GUIDE GLUCOSE METER) [facility] [place] 00:00: 00 Yes Use as directed to check blood sugars twice daily E11.65 [facility] blood sugar diagnostic (ACCU-CHEK GUIDE TEST STRIPS) strip 05-17 00:00: 00 Yes Use as directed to check blood sugars twice daily E11.65 [facility] metformin ER 750 mg 24 hr tablet 05-17 00:00: 00 09-20 00:00 :00 No [id number] 750mg Take 1 tablet by mouth daily with breakfast. [facility] Insulin Detemir (LEVEMIR FLEXPEN) 100 unit/mL (3 mL) injection 05-17 00:00: 00 09-20 00:00 :00 No [id number] 28U inject 28 Units under the skin every morning. E11.65 [facility] ONETOUCH VERIO TEST STRIPS strip 05-17 00:00: 00 05-17 00:00 :00 No [id number] Use as directed BID E11.65 [facility] ONETOUCH VERIO REFLECT METER Misc 05-17 00:00: 00 05-17 00:00 :00 No [id number] Use as directed BID E11.65 [facility] HYDROcodone -acetaminop hen 7.5-325 mg per tablet 05-16 00:00: 00 06-16 04:59 :00 No 2745 1{tbl} Take 1 tablet by mouth every 6 (six) hours as needed for Pain for up to 30 days. Indication s: chronic pain [facility] ciprofloxac in HCl (CIPRO) 500 mg tablet 05-05 00:00: 00 11-14 00:00 :00 No [id number] 500mg Take 1 tablet by mouth every 12 (twelve) hours. [facility] insulin detemir U-100 (LEVEMIR U-100 INSULIN) 100 unit/mL injection 05-05 00:00: 00 05-17 00:00 :00 No [id number] 34U inject 34 Units under the skin at bedtime. [facility] insulin detemir U-100 (LEVEMIR U-100 INSULIN) 100 unit/mL injection 04-20 00:00: 00 05-05 00:00 :00 No [id number] 34U inject 34 Units under the skin at bedtime. [facility] ciprofloxac in HCl (CIPRO) 500 mg tablet 04-20 00:00: 00 05-05 00:00 :00 No [id number] 500mg Take 1 tablet by mouth every 12 (twelve) hours. [facility] ESCITALOPRA M OXALATE 5 mg tablet 04-12 00:00: 00 07-14 00:00 :00 No [id number] 5mg TAKE 1 TABLET BY MOUTH IN THE MORNING. [facility] LISINOPRIL 20 mg tablet 04-12 00:00: 00 07-14 00:00 :00 No [id number] 20mg TAKE 1 TABLET BY MOUTH DAILY. [facility] insulin detemir U-100 (LEVEMIR U-100 INSULIN) 100 unit/mL injection 03-10 00:00: 00 04-20 00:00 :00 No [id number] 34U inject 34 Units under the skin at bedtime. [facility] HYDROcodone -ibuprofen 7.5-200 mg per tablet 03-07 00:00: 00 09-21 00:00 :00 No 2745 TAKE 1 TABLET BY MOUTH EVERY SIX HOURS NEEDED FOR PAIN Indication s: chronic pain [facility] nitroglycer in 0.3 mg sublingual tablet 02-24 00:00: 00 09-21 00:00 :[id number] 1 tablet under the tongue every 5 (five) minutes as needed for Chest pain. [facility] HYDROcodone -ibuprofen 7.5-200 mg per tablet 02-07 00:00: 00 03-07 00:00 :00 No 2745 TAKE 1 TABLET BY MOUTH EVERY SIX HOURS NEEDED FOR PAIN Indication s: chronic pain [facility] triamcinolo ne acetonide (KENALOG) injection 40 mg 05 16:30: 00 12-24 15:18 :00 No [id number] 40mg [facility] ondansetron 4 mg tablet 05 00:00: 00 Yes [id number] 4mg Take 1 tablet by mouth every 4 (four) hours as needed for Nausea and Vomiting (N/V). [facility] triamcinolo ne acetonide (KENALOG) injection 40 mg 12-24 14:45: 00 12-25 02:44 :00 No [id number] 40mg [facility] HYDROcodone -ibuprofen 7.5-200 mg per tablet 17 00:00: 00 02-07 00:00 :00 No 2745 TAKE 1 TABLET BY MOUTH EVERY SIX HOURS NEEDED FOR PAIN Indication s: chronic pain [facility] diclofenac 50 mg EC tablet 16 00:00: 00 Yes [id number] 50mg Take 1 tablet by mouth in the morning and 1 tablet in the evening. Take with meals. [facility] ALPRAZolam 0.25 mg tablet 12-16 00:00: 00 Yes [id number] TAKE 1/2 TABLET BY MOUTH THREE TIMES DAILY NEEDED FOR ANXIETY [facility] HYDROcodone -acetaminop hen 5-325 mg tablet 16 00:00: 00 09-21 00:00 :00 No 2745 TAKE 1 TABLET BY MOUTH EVERY FOUR HOURS NEEDED FOR PAIN Indication s: chronic pain [facility] methocarbam oL 500 mg tablet 11-25 00:00: 00 Yes [id number] 109 500mg Take 1 tablet by mouth 3 (three) times daily as needed for Pain (scale 4-6). [facility] hydroCHLORO thiazide 12.5 mg capsule 11-25 00:00: 00 09-21 00:00 :00 No [id number] 12.5mg Take 1 capsule by mouth in the morning. [facility] insulin detemir U-100 (LEVEMIR U-100 INSULIN) 100 unit/mL injection 11-25 00:00: 00 03-10 00:00 :00 No [id number] 28U inject 28 Units under the skin at bedtime. [facility] HYDROcodone -ibuprofen 7.5-200 mg per tablet 11-25 00:00: 00 12-17 00:00 :00 No 2745 TAKE 1 TABLET BY MOUTH EVERY SIX HOURS NEEDED FOR PAIN Indication s: chronic pain [facility] insulin detemir U-100 (LEVEMIR U-100 INSULIN) 100 unit/mL injection 10-25 00:00: 00 11-25 00:00 :00 No [id number] 28U inject 28 Units under the skin at bedtime. [facility] HYDROcodone -ibuprofen 7.5-200 mg per tablet 10-25 00:00: 00 11-25 00:00 :00 No 2745 TAKE 1 TABLET BY MOUTH EVERY SIX HOURS NEEDED FOR PAIN Indication s: chronic pain [facility] HYDROcodone -ibuprofen 7.5-200 mg per tablet 2021-10 00:00: 00 10-25 00:00 :00 No 2745 TAKE 1 TABLET BY MOUTH EVERY SIX HOURS NEEDED FOR PAIN Indication s: chronic pain [facility] escitalopra m oxalate (LEXAPRO) 5 mg tablet 2021-10 00:00: 00 04-12 00:00 :00 No [id number] 5mg Take 1 tablet by mouth in the morning. [facility] ALPRAZolam 0.25 mg tablet 2021-10 00:00: 00 12-16 00:00 :00 No [id number] TAKE 1/2 TABLET BY MOUTH THREE TIMES DAILY NEEDED FOR ANXIETY [facility] methocarbam oL 500 mg tablet 2021-10 00:00: 00 11-25 00:00 :00 No [id number] 109 500mg Take 1 tablet by mouth 3 (three) times daily as needed for Pain (scale 4-6). [facility] HYDROcodone -ibuprofen 7.5-200 mg per tablet 2021-10 00:00: 00 09-29 00:00 :00 No 2745 TAKE 1 TABLET BY MOUTH EVERY SIX HOURS NEEDED FOR PAIN Indication s: chronic pain [facility] HYDROcodone -ibuprofen 7.5-200 mg per tablet 2021-10 0-05 00:00: 00 Yes 2745 TAKE 1 TABLET BY MOUTH EVERY SIX HOURS NEEDED FOR PAIN Indication s: chronic pain [facility] losartan 50 mg tablet 2021-10 0-04 00:00: 00 09-21 00:00 :00 No [facility] gabapentin 300 mg capsule 06-16 00:00: 00 Yes 300mg Take 1 capsule by mouth every evening. [facility] metformin ER 750 mg 24 hr tablet 06-04 00:00: 00 05-17 00:00 :00 No [id number] 750mg Take 1 tablet by mouth in the morning and 1 tablet in the evening. Take with meals. [facility] insulin detemir U-100 (LEVEMIR U-100 INSULIN) 100 unit/mL injection 06-04 00:00: 00 10-25 00:00 :00 No [id number] 28U inject 28 Units under the skin at bedtime. [facility] HYDROcodone -ibuprofen 7.5-200 mg per tablet 8-15 00:00: 00 07-07 00:00 :00 No 2745 TAKE 1 TABLET BY MOUTH EVERY SIX HOURS NEEDED FOR PAIN Indication s: chronic pain [facility] HYDROCHLORO THIAZIDE 12.5 mg capsule 5-31 00:00: 00 11-25 00:00 :00 No [id number] 12.5mg TAKE 1 CAPSULE BY MOUTH DAILY [facility] cefUROXime 500 mg tablet - 00:00: 00 04-20 00:00 :00 No [id number] 500mg Take 1 tablet by mouth 2 (two) times daily. [facility] lisinopriL 20 mg tablet 02-25 00:00: 00 04-12 00:00 :00 No [id number] 20mg Take 1 tablet by mouth daily. [facility] insulin detemir U-100 (LEVEMIR U-100 INSULIN) 100 unit/mL injection 01-26 00:00: 00 06-04 00:00 :00 No [id number] 24U inject 24 Units under the skin at bedtime. [facility] metformin ER 750 mg 24 hr tablet 01-26 00:00: 00 06-04 00:00 :00 No [id number] 750mg Take 1 tablet by mouth 2 (two) times daily with meals. [facility] HYDROCODONE -ACETAMINOP HEN 5-325 mg tablet 2020-1008 00:00: 00 12-16 00:00 :00 No [id number] TAKE 1 TABLET BY MOUTH EVERY FOUR HOURS NEEDED FOR PAIN [facility] ALPRAZOLAM 0.25 mg tablet 2020-10-09 00:00: 00 09-22 00:00 :00 No [id number] TAKE 1/2 TABLET BY MOUTH THREE TIMES DAILY NEEDED FOR ANXIETY [facility] mirtazapine 7.5 mg tablet 2-24 00:00: 00 09-22 00:00 :00 No [id number] 7.5mg Take 1 tablet by mouth at bedtime. [facility] LORazepam 0.5 mg tablet 10-22 00:00: 00 09-22 00:00 :00 No [id number] .5mg Take 1 tablet by mouth 2 (two) times daily as needed for Anxiety. [facility] ondansetron 4 mg tablet 10-21 00:00: 00 01-05 00:00 :00 No 4mg Take 1 tablet by mouth every 4 (four) hours as needed for Nausea and Vomiting (N/V). [facility] neomycin-po lymyxin-hyd rocortisone 3.5-10,000- 1 mg/mL-unit/ mL-% otic susp 10-16 00:00: 00 Yes [id number] 3[drp] Place 3 Drops in left ear 4 (four) times daily. [facility] metroNIDAZO LE (FLAGYL) 500 mg tablet 10-16 00:00: 00 11-14 00:00 :00 No [id number] 500mg Take 1 tablet by mouth every 8 (eight) hours. [facility] sennosides- docusate sodium (ADONIS-COLAC E) 8.6-50 mg per tablet 02-10 00:00: 00 Yes [id number] 1{tbl} Take 1 tablet by mouth daily. [facility] ondansetron (ZOFRAN) 4 mg tablet 2017-10 00:00: 00 05-05 00:00 :00 No 4mg Take 1 tablet by mouth every 8 (eight) hours as needed for Nausea and Vomiting (N/V). [facility] acetaminoph en-codeine (TYLENOL-CO DEINE #3) 300-30 mg tablet 2017-10 00:00: 00 12-16 00:00 :00 No 1{tbl} Take 1 tablet by mouth every 6 (six) hours as needed for Pain (scale 7-10). [facility] famotidine 40 mg tablet 7-11 00:00: 00 Yes [id number] 40mg Take 1 tablet by mouth daily. [facility] Immunizations Ordered Immunization Name Filled Immunization Name Date Status Comments Source Influenza High Dose Quad 2020-07-03 00:00:00 Completed [facility] Influenza High Dose Quad 2020-07-03 00:00:00 Completed [facility] Influenza High Dose Quad 2020-07-03 00:00:00 Completed [facility] Influenza High Dose Quad 2020-07-03 00:00:00 Completed [facility] Influenza High Dose Quad 2020-07-03 00:00:00 Completed [facility] Influenza High Dose Quad 2020-07-03 00:00:00 Completed [facility] Influenza High Dose Quad 2020-07-03 00:00:00 Completed [facility] Influenza High Dose Quad 2020-07-03 00:00:00 Completed [facility] Influenza High Dose Quad 2020-07-03 00:00:00 Completed [facility] Influenza High Dose Quad 2020-07-03 00:00:00 Completed [facility] Influenza High Dose Quad 2020-07-03 00:00:00 Completed [facility] Influenza High Dose Quad 2020-07-03 00:00:00 Completed [facility] Influenza High Dose Quad 2020-07-03 00:00:00 Completed [facility] Influenza High Dose Quad 2020-07-03 00:00:00 Completed [facility] Influenza High Dose Quad 2020-07-03 00:00:00 Completed [facility] Influenza High Dose Quad 2020-07-03 00:00:00 Completed [facility] Influenza High Dose Quad 2020-07-03 00:00:00 Completed [facility] Influenza High Dose Quad 2020-07-03 00:00:00 Completed [facility] Influenza High Dose Quad 2020-07-03 00:00:00 Completed [facility] Influenza High Dose Quad 2020-07-03 00:00:00 Completed [facility] Influenza High Dose Quad 2020-07-03 00:00:00 Completed [facility] Influenza High Dose Quad 2020-07-03 00:00:00 Completed [facility] Influenza High Dose Quad 2020-07-03 00:00:00 Completed [facility] Influenza High Dose Quad 2020-07-03 00:00:00 Completed [facility] Influenza High Dose Quad 2020-07-03 00:00:00 Completed [facility] Influenza High Dose Quad 2020-07-03 00:00:00 Completed [facility] Influenza High Dose Quad 2020-07-03 00:00:00 Completed [facility] Influenza High Dose Quad 2020-07-03 00:00:00 Completed [facility] Influenza High Dose Quad 2020-07-03 00:00:00 Completed [facility] Influenza High Dose Quad 2020-07-03 00:00:00 Completed [facility] Influenza High Dose Quad 2020-07-03 00:00:00 Completed [facility] Influenza High Dose Quad 2020-07-03 00:00:00 Completed [facility] Influenza High Dose Quad 2020-07-03 00:00:00 Completed [facility] Influenza High Dose Quad 2020-07-03 00:00:00 Completed [facility] Influenza High Dose Quad 2020-07-03 00:00:00 Completed [facility] Influenza High Dose Quad 2020-07-03 00:00:00 Completed [facility] Influenza High Dose Quad 2020-07-03 00:00:00 Completed [facility] Influenza High Dose Quad 2020-07-03 00:00:00 Completed [facility] Influenza High Dose Quad 2020-07-03 00:00:00 Completed [facility] Influenza High Dose Quad 2020-07-03 00:00:00 Completed [facility] Influenza High Dose Quad 2020-07-03 00:00:00 Completed [facility] Influenza High Dose Quad 2020-07-03 00:00:00 Completed [facility] Influenza High Dose Quad 2020-07-03 00:00:00 Completed [facility] Influenza High Dose Quad 2020-07-03 00:00:00 Completed [facility] Influenza High Dose Quad 2020-07-03 00:00:00 Completed [facility] Influenza High Dose Quad 2020-07-03 00:00:00 Completed [facility] Influenza High Dose Quad 2020-07-03 00:00:00 Completed [facility] Influenza High Dose Quad 2020-07-03 00:00:00 Completed [facility] Influenza High Dose Quad 2020-07-03 00:00:00 Completed [facility] Influenza High Dose Quad 2020-07-03 00:00:00 [facility] [facility] 2020-07-03 00:00:00 Completed [facility] 2020-07-03 00:00:00 Completed [facility] 2020-07-03 00:00:00 Completed [facility] 2020-07-03 00:00:00 Completed [facility] 2020-07-03 00:00:00 Completed [facility] 2020-07-03 00:00:00 Completed [facility] 2020-07-03 00:00:00 Completed [facility] 2020-07-03 00:00:00 Completed [facility] 2020-07-03 00:00:00 Completed [facility] 2020-07-03 00:00:00 Completed [facility] 2020-07-03 00:00:00 Completed [facility] 2020-07-03 00:00:00 Completed [facility] Unknown Completed [facility] Unknown Completed [facility] Unknown Completed [facility] D[facility] Unknown Completed [facility] Unknown Completed [facility] Unknown Completed [facility] Unknown Completed [facility] Unknown Completed [facility] Unknown Completed [facility] Unknown Completed [facility] Unknown Completed [facility] Unknown Completed [facility] Unknown Completed [facility] Unknown Completed [facility] Unknown Completed [facility] Unknown Completed [facility] Unknown Completed [facility] Unknown Completed [facility] Unknown Completed [facility] Unknown Completed [facility] Unknown Completed [facility] Unknown Completed [facility] Unknown Completed [facility] Unknown Completed [facility] Unknown Completed [facility] Unknown Completed [facility] Unknown Completed [facility] Unknown Completed [facility] Unknown Completed [facility] Unknown Completed [facility] Unknown Completed [facility] Unknown Completed [facility] Vital Signs Vital Name Observation Time Observation Value Comments S ource Systolic blood pressure 2024-03-15 18:41:00 125 mm[Hg] [facility] Diastolic blood pressure 2024-03-15 18:41:00 70 mm[Hg] [facility] Heart rate 2024-03-15 18:41:00 65 /min [facility] Body height 2024-03-15 18:41:00 165.1 cm [facility] Body weight 2024-03-15 18:41:00 57.153 kg [facility] BMI 2024-03-15 18:41:00 20.97 kg/m2 [facility] Oxygen saturation in Arterial blood by Pulse oximetry 2024-03-15 18:41:00 97 /min [facility] Systolic blood pressure 2024-01-12 18:12:00 139 mm[Hg] [facility] Diastolic blood pressure 2024-01-12 18:12:00 78 mm[Hg] [facility] Heart rate 2024-01-12 18:09:00 77 /min [facility] Body temperature 2024-01-12 18:09:00 36.5 Denice [facility] Body height 2024-01-12 18:09:00 165.1 cm [facility] Body weight 2024-01-12 18:09:00 55.339 kg [facility] BMI 2024-01-12 18:09:00 20.30 kg/m2 [facility] Systolic blood pressure 2023-11-14 20:07:00 122 mm[Hg] [facility] Diastolic blood pressure 2023-11-14 20:07:00 74 mm[Hg] [facility] Heart rate 2023-11-14 20:01:00 78 /min [facility] 2023-11-14 20:01:00 36.94 Denice [facility] Body height 2023-11-14 20:01:00 165.1 cm [facility] Body weight 2023-11-14 20:01:00 53.978 kg [facility] BMI 2023-11-14 20:01:00 19.80 kg/m2 [facility] Systolic blood pressure 2023-10-05 19:56:00 149 mm[Hg] [facility] Diastolic blood pressure 2023-10-05 19:56:00 81 mm[Hg] [facility] Heart rate 2023-10-05 19:55:00 87 /min [facility] Body height 2023-10-05 19:55:00 165.1 cm [facility] weight 2023-10-05 19:55:00 57.97 kg [facility] BMI 2023-10-05 19:55:00 21.27 kg/m2 [facility] Oxygen saturation in Arterial blood by Pulse oximetry 2023-10-05 19:55:00 98 /min [facility] Systolic blood pressure 2023-09-21 19:06:00 131 mm[Hg] [facility] Diastolic blood pressure 2023-09-21 19:06:00 76 mm[Hg] [facility] Heart rate 2023-09-21 19:06:00 66 /min [facility] height 2023-09-21 19:06:00 165.1 cm [facility] Body weight 2023-09-21 19:06:00 57.335 kg [facility] BMI 2023-09-21 19:06:00 21.03 kg/m2 [facility] Oxygen saturation in Arterial blood by Pulse oximetry 2023-09-21 19:06:00 99 /min [facility] Systolic blood pressure 2023-09-20 19:35:00 136 mm[Hg] [facility] Diastolic blood pressure 2023-09-20 19:35:00 69 mm[Hg] [facility] Heart rate 2023-09-20 19:35:00 61 /min [facility] Body height 2023-09-20 19:35:00 165.1 cm [facility] Body weight 2023-09-20 19:35:00 57.289 kg [facility] BMI 2023-09-20 19:35:00 21.02 kg/m2 [facility] Oxygen saturation in Arterial blood by Pulse oximetry 2023-09-20 19:35:00 99 /min [facility] Systolic blood pressure 2023-05-17 16:18:00 161 mm[Hg] [facility] Diastolic blood pressure 2023-05-17 16:18:00 73 mm[Hg] [facility] Heart rate 2023-05-17 16:18:00 76 /min [facility] Body height 2023-05-17 16:18:00 165.1 cm [facility] Body weight 2023-05-17 16:18:00 54.658 kg [facility] BMI 2023-05-17 16:18:00 20.05 kg/m2 [facility] Oxygen saturation in Arterial blood by Pulse oximetry 2023-05-17 16:18:00 99 /min [facility] Systolic blood pressure 2023-04-20 19:29:00 132 mm[Hg] [facility] Diastolic blood pressure 2023-04-20 19:29:00 66 mm[Hg] [facility] Heart rate 2023-04-20 19:29:00 64 /min [facility] Respiratory rate 2023-04-20 19:29:00 18 /min [facility] Body height 2023-04-20 19:29:00 165.1 cm [facility] Body weight 2023-04-20 19:29:00 55.883 kg [facility] BMI 2023-04-20 19:29:00 20.50 kg/m2 [facility] Oxygen saturation in Arterial blood by Pulse oximetry 2023-04-20 19:29:00 99 /min [facility] Systolic blood pressure 2023-03-10 18:43:00 144 mm[Hg] [facility] Diastolic blood pressure 2023-03-10 18:43:00 53 mm[Hg] [facility] Heart rate 2023-03-10 18:43:00 60 /min [facility] Respiratory rate 2023-03-10 18:43:00 18 /min [facility] Body height 2023-03-10 18:43:00 165.1 cm [facility] Body weight 2023-03-10 18:43:00 56.518 kg [facility] BMI 2023-03-10 18:43:00 20.73 kg/m2 [facility] Oxygen saturation in Arterial blood by Pulse oximetry 2023-03-10 18:43:00 99 /min [facility] Systolic blood pressure 2023-02-24 18:53:00 165 mm[Hg] [facility] Diastolic blood pressure 2023-02-24 18:53:00 63 mm[Hg] [facility] Heart rate 2023-02-24 18:52:00 58 /min [facility] Body temperature 2023-02-24 18:52:00 37.33 Deniec [facility] Body height 2023-02-24 18:52:00 165.1 cm [facility] Body weight 2023-02-24 18:52:00 55.339 kg [facility] BMI 2023-02-24 18:52:00 20.30 kg/m2 [facility] Systolic blood pressure 2023-01-05 14:04:00 183 mm[Hg] [facility] Diastolic blood pressure 2023-01-05 14:04:00 76 mm[Hg] [facility] Heart rate 2023-01-05 14:03:00 61 /min [facility] Body temperature 2023-01-05 14:03:00 36.67 Denice [facility] Body height 2023-01-05 14:03:00 165.1 cm [facility] Body weight 2023-01-05 14:03:00 54.432 kg [facility] BMI 2023-01-05 14:03:00 19.97 kg/m2 [facility] Oxygen saturation in Arterial blood by Pulse oximetry 2023-01-05 14:03:00 99 /min [facility] Systolic blood pressure 2022-12-24 13:18:00 180 mm[Hg] [facility] Diastolic blood pressure 2022-12-24 13:18:00 74 mm[Hg] [facility] Heart rate 2022-12-24 13:18:00 71 /min [facility] Body height 2022-12-24 13:09:00 162.6 cm [facility] Body weight 2022-12-24 13:09:00 58.06 kg [facility] BMI 2022-12-24 13:09:00 21.97 kg/m2 [facility] Oxygen saturation in Arterial blood by Pulse oximetry 2022-12-24 13:09:00 97 /min [facility] Systolic blood pressure 2022-12-16 18:07:00 179 mm[Hg] [facility] Diastolic blood pressure 2022-12-16 18:07:00 82 mm[Hg] [facility] Heart rate 2022-12-16 18:07:00 64 /min [facility] Body weight 2022-12-16 18:07:00 56.246 kg [facility] BMI 2022-12-16 18:07:00 20.63 kg/m2 [facility] Oxygen saturation in Arterial blood by Pulse oximetry 2022-12-16 18:07:00 97 /min [facility] Systolic blood pressure 2022-11-25 18:19:00 157 mm[Hg] [facility] Diastolic blood pressure 2022-11-25 18:19:00 73 mm[Hg] [facility] Heart rate 2022-11-25 18:18:00 61 /min [facility] Body height 2022-11-25 18:18:00 165.1 cm [facility] Body weight 2022-11-25 18:18:00 57.924 kg [facility] BMI 2022-11-25 18:18:00 21.25 kg/m2 [facility] Oxygen saturation in Arterial blood by Pulse oximetry 2022-11-25 18:18:00 98 /min [facility] Systolic blood pressure 2022-10-25 20:12:00 166 mm[Hg] [facility] Diastolic blood pressure 2022-10-25 20:12:00 71 mm[Hg] [facility] Heart rate 2022-10-25 19:55:00 63 /min [facility] Body height 2022-10-25 19:55:00 165.1 cm [facility] Body weight 2022-10-25 19:55:00 58.469 kg [facility] BMI 2022-10-25 19:55:00 21.45 kg/m2 [facility] Oxygen saturation in Arterial blood by Pulse oximetry 2022-10-25 19:55:00 97 /min [facility] Systolic blood pressure 2022-09-22 19:13:00 188 mm[Hg] [facility] Diastolic blood pressure 2022-09-22 19:13:00 79 mm[Hg] [facility] Heart rate 2022-09-22 19:12:00 71 /min [facility] Body height 2022-09-22 19:12:00 165.1 cm [facility] Body weight 2022-09-22 19:12:00 59.33 kg [facility] BMI 2022-09-22 19:12:00 21.77 kg/m2 [facility] Oxygen saturation in Arterial blood by Pulse oximetry 2022-09-22 19:12:00 98 /min [facility] Systolic blood pressure 2022-06-04 20:17:00 156 mm[Hg] [place] [facility] Diastolic blood pressure 2022-06-04 20:17:00 81 mm[Hg] [place] [facility] Heart rate 2022-06-04 20:09:00 69 /min [facility] Body weight 2022-06-04 20:09:00 60.51 kg [facility] BMI 2022-06-04 20:09:00 22.20 kg/m2 [facility] Oxygen saturation in Arterial blood by Pulse oximetry 2022-06-04 20:09:00 95 /min [facility] Procedures Procedure Date / Time Performed Performing Clinician Source EXTERNAL PROVIDER RECORDS 2023-11-25 06:01:00 Do ctor Unassigned, De Beque [facility] CT ABDOMEN PELVIS W CONTRAST 2023-10-05 21:41:00 Wilfred Ramos [facility] HB CREATININE SERUM/BLOOD FOR IMAGING 2023-10-05 21:25:00 Wilfred Ramos [facility] POCT HEMOGLOBIN A1C TEST 2023-09-20 19:37:00 Chano Ruelas [facility] PHYSICIAN CERTIFICATION STATEMENT 2023-04-18 05:01:00 Doctor Unassigned, De Beque [facility] - OTHER 2023-03-06 05:01:00 Doctor Alvino quigley, De Beque [facility] - OTHER 2023-02-10 05:01:00 Doctor Alvino quigley, De Beque [facility] - OTHER 2023-01-27 05:01:00 Doctor Alvino quigley, De Beque [facility] EXTERNAL PROVIDER RECORDS 2023-01-18 05:01:00 Do ctor Unassigned, De Beque [facility] EXTERNAL PROVIDER RECORDS 2023-01-05 05:01:00 Do ctor Unassigned, De Beque [facility] CONSENT/REFUSAL FOR DIAGNOSIS AND TREATMENT 2022-11-25 17:42:39 Doctor Unassigned, De Beque [facility] INSURANCE CORRESPONDENCE 2022-08-09 06:01:00 Doc tor Unassigned, De Beque [facility] MEDICAL RELEASE/CLEARANCE FORMS 2022-06-18 05:01:00 Doctor Unassigned, De Beque [facility] POCT HEMOGLOBIN A1C TEST 2022-06-04 20:20:00 Jamie Guzmán [facility] Encounters Start Date/Time End Date/Time Encounter Type Admission Type Attending [facility] Care Facility Care Department Encounter ID Source 2021-08-02 04:31:18 Outpatient JAI OTERO [facility] [id number] [facility] 2021-08-01 18:59:[address] [facility] [id number] [facility] 2024-03-15 14:30:00 2024-03-15 14:30:00 Office Visit [facility] 1.2.840.114 350.1.13.10 4.2.7.2.686 [id number] [facility] 2024-03-15 14:30:00 2024-03-15 14:04:35 [id number] 2024-02-21 00:00:00 2024-02-21 10:29:31 Telephone [facility] [place] 1.2.840.114 350.1.13.10 4.2.7.2.686 [id number] [facility] 2024-02-13 00:00:00 2024-02-13 15:22:02 Refill [facility] 1.2.840.114 350.1.13.10 4.2.7.2.686 [id number] [facility] 2024-01-24 10:00:00 2024-01-24 10:00:00 Outpatient R STEVEN GARNICA [facility] [id number] [facility] 2024-01-20 13:00:00 2024-01-20 13:00:00 Outpatient R STEVEN GARNICA [facility] [id number] [facility] 2024-01-12 13:00:00 2024-01-12 14:16:23 Outpatient R ANJU HANNA [facility] [id number] [facility] 2024-01-12 13:00:00 2024-01-12 14:16:23 [facility] 1.2840.114 350.1.13.10 4.2.7.2.686 [id number] [facility] 2024-01-11 00:00:00 2024-01-11 00:00:00 [facility] 1.2840.114 350.1.13.10 4.2.7.2.686 [id number] [facility] 2023-12-20 00:00:00 2023-12-20 00:00:00 Telephone [facility] [place] 1.2840.114 350.1.13.10 4.2.7.2.686 [id number] [facility] 2023-12-08 00:00:00 2023-12-08 00:00:00 Refill [facility] 1.2840.114 350.1.13.10 4.2.7.2.686 [id number] [facility] 2023-12-01 00:00:00 2023-12-01 00:00:00 Refill [facility] [place] 1.2840.114 350.1.13.10 4.2.7.2.686 [id number] [facility] 2023-11-25 00:00:00 2023-11-25 00:00:00 Orders Only Doctor Unassigned, De Beque [facility] 1.2.840.114 350.1.13.10 4.2.7.2.686 [id number] [facility] 2023-11-25 00:00:00 2023-11-25 00:00:00 Telephone Jj Rosio [facility] 1.2.840.114 350.1.13.10 4.2.7.2.686 [id number] [facility] 2023-11-14 13:00:00 2023-11-14 15:03:56 Outpatient R ROSIO WILLIAMSON [facility] [id number] [facility] 2023-11-14 13:00:00 2023-11-14 15:03:56 Office Visit Jj Rosio [facility] 1.2.840.114 350.1.13.10 4.2.7.2.686 [id number] [facility] 2023-10-05 15:02:41 2023-10-05 23:59:00 Hospital Encounter Wilfred Ramos [facility] 1.2.840.114 350.1.13.10 4.2.7.2.686 [id number] [facility] 2023-10-05 14:15:00 2023-10-05 14:15:00 Office Visit Richard [facility] 1.2.840.114 350.1.13.10 4.2.7.2.686 [id number] [facility] 2023-10-05 14:15:00 2023-10-05 14:13:50 Outpatient R WILFRED RAMOS [facility] [id number] [facility] 2023-09-27 00:00:00 2023-09-27 00:00:00 Letter (Out) Iftikhar, Cardiology - Clear [facility] 1.840.114 350.1.13.10 4.2.7.2.686 [id number] [facility] 2023-09-23 00:00:00 2023-09-23 00:00:00 Patient Secure Msg Doctor Unassigned, De Beque [facility] 1.284.114 350.1.13.10 4.2.7.2.686 [id number] [facility] 2023-09-21 13:15:00 2023-09-21 13:30:00 Office Visit [facility] 1.84.114 350.1.13.10 4.2.7.2.686 [id number] [facility] 2023-09-21 13:15:00 2023-09-21 13:15:00 Outpatient R WILFRED RAMOS [facility] [id number] [facility] 2023-09-20 13:30:00 2023-09-20 14:18:[address] [facility] [id number] [facility] 2023-09-20 13:30:00 2023-09-20 14:18:45 Office Visit Suraj [facility] [place] 1.84.114 350.1.13.10 4.2.7.2.686 [id number] [facility] 2023-09-07 00:00:00 2023-09-07 00:00:00 Refill [facility] [place] 1.84.114 350.1.13.10 4.2.7.2.686 [id number] [facility] 2023-08-16 00:00:00 2023-08-16 00:00:00 [facility] 1..840.114 350.1.13.10 4.2.7.2.686 [id number] [facility] 2023-07-14 00:00:00 2023-07-14 00:00:00 [facility]ill [facility] 1..840.114 350.1.13.10 4.2.7.2.686 [id number] [facility] 2023-06-18 00:00:00 2023-06-18 00:00:00 [facility]ill [facility] 1..840.114 350.1.13.10 4.2.7.2.686 [id number] [facility] 2023-05-17 11:00:00 2023-05-17 12:21:[address] [facility] [id number] [facility] 2023-05-17 11:00:00 2023-05-17 12:21:30 [facility] 1..840.114 350.1.13.10 4.2.7.2.686 [id number] [facility] 2023-05-17 00:00:00 2023-05-17 00:00:00 Telephone [facility] 1..840.114 350.1.13.10 4.2.7.2.686 [id number] [facility] 2023-05-13 00:00:00 2023-05-13 00:00:00 [facility]phone [facility] 1.0.114 350.1.13.10 4.2.7.2.686 [id number] [facility] 2023-04-30 00:00:00 2023-04-30 00:00:00 Patient Secure Msg Doctor Unassigned, De Beque [facility] 1.2840.114 350.1.13.10 4.2.7.2.686 [id number] [facility] 2023-04-25 00:00:00 2023-04-25 00:00:00 Telephone Richard [facility] 1.114 350.1.13.10 4.2.7.2.686 [id number] [facility] 2023-04-20 14:30:00 2023-04-20 16:45:51 Outpatient R WILFRED RAMOS [facility] [id number] [facility] 2023-04-20 14:30:00 2023-04-20 16:45:51 Office Visit Richard [facility] 1.114 350.1.13.10 4.2.7.2.686 [id number] [facility] 2023-04-18 00:00:00 2023-04-18 00:00:00 Orders Only Doctor Unassigned, De Beque [facility] 1.20.114 350.1.13.10 4.2.7.2.686 [id number] [facility] 2023-04-14 00:00:00 2023-04-14 00:00:00 Telephone Richard [facility] 1.0.114 350.1.13.10 4.2.7.2.686 [id number] [facility] 2023-04-11 00:00:00 2023-04-11 00:00:00 [facility] CenterEFFIE BRIGGS?[facility] 1.284.114 350.1.13.10 4.2.7.2.686 [id number] 044 [id number] [facility] 2023-03-15 13:00:00 2023-03-15 13:15:00 Hydrochloric Manufacturing Supervisor Visit Lab, Fernando Coto [facility] [place] 1.84.114 350.1.13.10 4.2.7.2.686 [id number] [facility] 2023-03-15 13:00:00 2023-03-15 13:00:[address]ED PERRY [facility] [id number] [facility] 2023-03-14 00:00:00 2023-03-14 00:00:00 Telephone [facility] [place] 1.840.114 350.1.13.10 4.2.7.2.686 [id number] 044 [id number] [facility] 2023-03-11 09:45:00 2023-03-11 10:00:00 Hydrochloric Manufacturing Supervisor Visit Lab, Fernando Coto [facility] 1.2.840.114 350.1.13.10 4.2.7.2.686 [id number] [facility] 2023-03-11 09:45:00 2023-03-11 09:45:00 Outpatient R WILFRED RAMOS [facility] [id number] [facility] 2023-03-10 14:00:00 2023-03-10 14:15:00 Office Visit [facility] 1.2.840.114 350.1.13.10 4.2.7.2.686 [id number] 044 [id number] [facility] 2023-03-10 14:00:00 2023-03-10 14:00:00 Outpatient R WILFRED RAMOS [facility] [id number] [facility] 2023-03-06 00:00:00 2023-03-06 00:00:00 Orders Only Doctor Unassigned, [facility] 1.2840.114 350.1.13.10 4.2.7.2.686 [id number] [id number] [facility] 2023-03-04 00:00:00 2023-03-04 00:00:00 Refill Ramos [facility] 1.2.114 350.1.13.10 4.2.7.2.686 [id number] 044 [id number] [facility] 2023-02-24 14:15:00 2023-02-24 14:45:00 Office Visit Richard [facility] 1.2114 350.1.13.10 4.2.7.2.686 [id number] 044 [id number] [facility] 2023-02-24 14:15:00 2023-02-24 14:15:00 Outpatient R WILFRED RAMOS [facility] [id number] [facility] 2023-02-12 00:00:00 2023-02-12 00:00:00 Telephone Richard [facility] 1.2.114 350.1.13.10 4.2.7.2.686 [id number] 044 [id number] [facility] 2023-02-10 00:00:00 2023-02-10 00:00:00 Orders Only Doctor Unassigned, [facility] 1.2.114 350.1.13.10 4.2.7.2.686 [id number] [id number] [facility] 2023-02-03 00:00:00 2023-02-03 00:00:00 Refill Richard [facility] 1.2.840.114 350.1.13.10 4.2.7.2.686 [id number] 044 [id number] [facility] 2023-01-27 00:00:00 2023-01-27 00:00:00 Orders Only Doctor Unassigned, [facility] 1.2840.114 350.1.13.10 4.2.7.2.686 [id number] 009 [id number] [facility] 2023-01-18 00:00:00 2023-01-18 00:00:00 Orders Only Doctor Unassigned, [facility] 1.2840.114 350.1.13.10 4.2.7.2.686 [id number] 009 [id number] [facility] 2023-01-05 09:00:00 2023-01-05 09:30:00 Office Visit Ramos [facility] 1.2.840.114 350.1.13.10 4.2.7.2.686 [id number] 044 [id number] [facility] 2023-01-05 09:00:00 2023-01-05 09:00:00 Outpatient R WILFRED RAMOS [facility] [id number] [facility] 2023-01-05 00:00:00 2023-01-05 00:00:00 Orders Only Doctor Unassigned, [facility] 1.2840.114 350.1.13.10 4.2.7.2.686 [id number] [id number] [facility] 2023-01-05 00:00:00 2023-01-05 00:00:00 Telephone Richard [facility] 1.2.840.114 350.1.13.10 4.2.7.2.686 [id number] 044 [id number] [facility] 2023-01-03 00:00:00 2023-01-03 00:00:00 Telephone Wilfred [facility] 1.2.840.114 350.1.13.10 4.2.7.2.686 [id number] 044 [id number] [facility] 2022-12-31 00:00:00 2022-12-31 00:00:00 Telephone Wilfred Ramos [facility] 1.2.840.114 350.1.13.10 4.2.7.2.686 [id number] 044 [id number] [facility] 2022-12-29 00:00:00 2022-12-29 00:00:00 Telephone [facility] 1.2.840.114 350.1.13.10 4.2.7.2.686 [id number] 044 [id number] [facility] 2022-12-24 08:15:00 2022-12-24 11:00:14 Outpatient R LEEROY ALBARRAN [facility] [id number] [facility] 2022-12-24 08:15:00 2022-12-24 11:00:14 Office Visit Leeroy Albarran [facility] 1.2.840.114 350.1.13.10 4.2.7.2.686 [id number] [facility] 2022-12-16 13:30:00 2022-12-16 14:38:40 [facility] [id number] 2022-12-16 13:30:00 2022-12-16 14:38:40 Office Visit Wilfred Ramos [facility] 1.2840.114 350.1.13.10 4.2.7.2.686 [id number] 044 [id number] [facility] 2022-12-16 00:00:00 2022-12-16 00:00:00 Refill Wilfred Ramos [facility] 1.2840.114 350.1.13.10 4.2.7.2.686 [id number] 044 [id number] [facility] 2022-11-25 12:15:00 2022-11-25 12:30:00 Office Visit Wilfred Ramos [facility] 1.2840.114 350.1.13.10 4.2.7.2.686 [id number] 044 [id number] [facility] 2022-11-25 12:15:00 2022-11-25 12:15:00 Outpatient R WILFRED RAMOS [facility] [id number] [facility] 2022-11-25 00:00:00 2022-11-25 00:00:00 Orders Only Doctor Unassigned, [facility] 1.2840.114 350.1.13.10 4.2.7.2.686 [id number] [id number] [facility] 2022-10-25 14:15:00 2022-10-25 14:30:00 Office Visit Wilfred Ramos [facility] 1.2840.114 350.1.13.10 4.2.7.2.686 [id number] 044 [id number] [facility] 2022-10-25 14:15:00 2022-10-25 14:15:00 Outpatient R WILFRED RAMOS [facility] [id number] [facility] 2022-10-25 00:00:00 2022-10-25 00:00:00 Telephone Wilfred Ramos [facility] 1..840.114 350.1.13.10 4.2.7.2.686 [id number] 044 [id number] [facility] 2022-09-29 00:00:00 2022-09-29 00:00:00 Refill Wilfred Ramos [facility] 1.840.114 350.1.13.10 4.2.7.2.686 [id number] 044 [id number] [facility] 2022-09-22 14:12:09 2022-09-22 23:59:00 Outpatient R WILFRED RAMOS [facility] [id number] [facility] 2022-09-22 13:45:00 2022-09-22 14:04:05 Hydrochloric Manufacturing Supervisor Visit Lab, Fernando - Nnamdi [facility] [place] 1..840.114 350.1.13.10 4.2.7.2.686 [id number] [facility] 2022-09-22 13:15:00 2022-09-22 13:30:00 Office Visit Wilfred Ramos [facility] 1..840.114 350.1.13.10 4.2.7.2.686 [id number] 044 [id number] [facility] 2022-09-17 00:00:00 2022-09-17 00:00:00 Patient Secure Msg Doctor Unassigned, [place] [facility] [facility] 1..840.114 350.1.13.10 4.2.7.2.686 [id number] 044 [id number] [facility] 2022-08-20 00:00:00 2022-08-20 00:00:00 Refill [facility] [place] 1.2840.114 350.1.13.10 4.2.7.2.686 [id number] 044 [id number] [facility] 2022-08-09 00:00:00 2022-08-09 00:00:00 Orders Only Doctor Unassigned, [facility] 1.2840.114 350.1.13.10 4.2.7.2.686 [id number] 009 [id number] [facility] 2022-07-06 00:00:00 2022-07-06 00:00:00 [facility] 1.2840.114 350.1.13.10 4.2.7.2.686 [id number] 044 [id number] [facility] 2022-06-24 00:00:00 2022-06-24 00:00:00 Telephone Jamie Guzmán [facility] 1.2840.114 350.1.13.10 4.2.7.2.686 [id number] [facility] 2022-06-21 00:00:00 2022-06-21 00:00:00 Telephone [facility] 1.2840.114 350.1.13.10 4.2.7.2.686 [id number] [facility] 2022-06-18 00:00:00 2022-06-18 00:00:00 Orders Only Doctor Unassigned, [facility] 1.2840.114 350.1.13.10 4.2.7.2.686 [id number] [id number] [facility] 2022-06-15 00:00:00 2022-06-15 00:00:00 Telephone Guzmán, [facility] 1.2840.114 350.1.13.10 4.2.7.2.686 [id number] [facility] 2022-06-04 15:30:00 2022-06-04 15:58:45 Office Visit Jamie Guzmán Monique [facility] 1.2840.114 350.1.13.10 4.2.7.2.686 [id number] 220 [id number] [facility] 2022-06-04 15:30:00 2022-06-04 15:58:45 Outpatient R JAMIE GUZMÁN [facility] [id number] [facility] 2022-06-04 15:30:00 2022-06-04 15:30:00 Outpatient R JAMIE GUZMÁN [facility] [id number] [facility] 2022-05-14 00:00:00 2022-05-14 00:00:00 Refill Ramos, [facility] [place] 1.84.114 350.1.13.10 4.2.7.2.686 [id number] 044 [id number] [facility] 2022-03-02 00:00:00 2022-03-02 00:00:00 Refill Ramos, Wilfred [facility] 1.284.114 350.1.13.10 4.2.7.2.686 [id number] 044 [id number] [facility] 2022-02-25 12:30:00 2022-02-25 12:45:00 Office Visit Richard Wilfred [facility] 1.2840.114 350.1.13.10 4.2.7.2.686 [id number] 044 [id number] [facility] 2022-02-25 12:30:00 2022-02-25 12:30:00 Outpatient R WILFRED RAMOS [facility] [id number] [facility] 2022-02-17 00:00:00 2022-02-17 00:00:00 [facility] 1.2840.114 350.1.13.10 4.2.7.2.686 [id number] 044 [id number] [facility] 2022-01-26 14:30:00 2022-01-26 14:56:48 [id number] 2022-01-26 14:30:00 2022-01-26 14:56:48 [facility] 1.84.114 350.1.13.10 4.2.7.2.686 [id number] [facility] 2022-01-15 00:00:00 2022-01-15 00:00:00 Francisco Ramos [facility] OFFICE BUILDING ONE 1.84.114 350.1.13.10 4.2.7.2.686 [id number] 044 [id number] [facility] 2022-01-15 00:00:00 2022-01-15 00:00:00 Francisco Ramos [facility] OFFICE BUILDING ONE 1.84.114 350.1.13.10 4.2.7.2.686 [id number] 044 [id number] [facility] 2022-01-15 00:00:00 2022-01-15 00:00:00 Francisco Ramos [facility] OFFICE BUILDING ONE 1.84.114 350.1.13.10 4.2.7.2.686 [id number] 044 [id number] [facility] 2022-01-07 00:00:00 2022-01-07 00:00:00 Refill Wilfred Ramos [facility] 1.84114 350.1.13.10 4.2.7.2.686 [id number] 044 [id number] [facility] 2021-11-30 13:00:00 2021-11-30 13:00:00 Outpatient R WILFRED RAMOS [facility] [id number] [facility] 2021-10-16 13:30:00 2021-10-16 14:32:38 Outpatient R JAMIE GUZMÁN [facility] [id number] [facility] 2021-10-16 13:30:00 2021-10-16 14:32:38 Office Visit Marcia Montalvo Kevin [facility] 1.84114 350.1.13.10 4.2.7.2.686 [id number] [facility] 2021-10-16 00:00:00 2021-10-16 00:00:00 Orders Only Doctor Unassigned, [facility] 1..114 350.1.13.10 4.2.7.2.686 [id number] 009 [id number] [facility] 2021-10-12 00:00:00 2021-10-12 00:00:00 RefWilfred Keita [facility] OFFICE BUILDING ONE 1.114 350.1.13.10 4.2.7.2.686 [id number] 044 [id number] [facility] 2021-10-12 00:00:00 2021-10-12 00:00:00 [facility] 1.114 350.1.13.10 4.2.7.2.686 [id number] 095 [id number] [facility] 2021-09-08 00:00:00 2021-09-08 00:00:00 Refill Wilfred Ramos [facility] OFFICE BUILDING ONE 1.20.114 350.1.13.10 4.2.7.2.686 [id number] 044 [id number] [facility] 2021-08-07 00:00:00 2021-08-07 00:00:00 Refill Wilfred Ramos [facility] OFFICE BUILDING ONE 1.2840.114 350.1.13.10 4.2.7.2.686 [id number] 044 [id number] [facility] 2021-07-04 00:00:00 2021-07-04 00:00:00 Refill Wilfred Ramos [facility] Office Building One 1.2840.114 350.1.13.10 4.2.7.2.686 [id number] 044 [id number] [facility] 2021-07-01 00:00:00 2021-07-01 00:00:00 Refill Richard [facility] Office Building One 1.2.114 350.1.13.10 4.2.7.2.686 [id number] 044 [id number] [facility] 2021-04-30 14:15:00 2021-04-30 14:15:00 Outpatient R WILFRED RAMOS [facility] [id number] [facility] 2021-04-30 13:52:17 2021-04-30 14:07:17 Office Visit Richard [facility] Office Building One 1.2.114 350.1.13.10 4.2.7.2.686 [id number] 044 [id number] [facility] 2021-04-28 00:00:00 2021-04-28 00:00:00 Refill Wilfred Ramos [facility] Office Building One 1.20.114 350.1.13.10 4.2.7.2.686 [id number] 044 [id number] [facility] 2021-03-31 00:00:00 2021-03-31 00:00:00 Refmargo Ramos [facility] Office Building One 1.840.114 350.1.13.10 4.2.7.2.686 [id number] 044 [id number] [facility] 2021-03-16 00:00:00 2021-03-16 00:00:00 Refill Richard [facility] Office Building One ..114 350.1.13.10 4.2.7.2.686 [id number] 044 [id number] [facility] 2021-02-23 13:15:00 2021-02-23 13:15:00 [facility] [id number] [facility] 2021-02-11 00:00:00 2021-02-11 00:00:00 Refill Richard [facility] Office Building One ..114 350.1.13.10 4.2.7.2.686 [id number] 044 [id number] [facility] 2021-01-29 00:00:00 2021-01-29 00:00:00 Telephone Richard [facility] Office Building One 1..114 350.1.13.10 4.2.7.2.686 [id number] 044 [id number] [facility] 2021-01-23 00:00:00 2021-01-23 00:00:00 Orders Only Doctor Unassigned, [facility] 1.0.114 350.1.13.10 4.2.7.2.686 [id number] [id number] [facility] 2021-01-21 00:00:00 2021-01-21 00:00:00 Refill Richard [facility] One 1.840.114 350.1.13.10 4.2.7.2.686 [id number] 044 [id number] [facility] 2021-01-21 00:00:00 2021-01-21 00:00:00 Telephone Richard [facility] One 1.840.114 350.1.13.10 4.2.7.2.686 [id number] 044 [id number] [facility] 2021-01-21 00:00:00 2021-01-21 00:00:00 Orders Only Doctor Unassigned, [facility] 1.840.114 350.1.13.10 4.2.7.2.686 [id number] 009 [id number] [facility] 2021-01-19 15:00:00 2021-01-19 15:00:00 Outpatient PERLA YEH HOWARD [facility] [id number] [facility] 2021-01-15 00:00:00 2021-01-15 00:00:00 Orders Only Doctor Unassigned, [facility] 1.2840.114 350.1.13.10 4.2.7.2.686 [id number] 009 [id number] [facility] 2021-01-13 13:40:00 2021-01-13 13:40:00 Outpatient PERLA YEH [facility]ARD [facility] [id number] [facility] 2021-01-06 00:00:00 2021-01-06 00:00:00 Orders Only Doctor Unassigned, [facility] 1.2840.114 350.1.13.10 4.2.7.2.686 [id number] 009 [id number] [facility] 2020-12-26 00:00:00 2020-12-26 00:00:00 Orders Only Doctor Unassigned, [facility] 1.2840.114 350.1.13.10 4.2.7.2.686 [id number] 009 [id number] [facility] 2020-12-17 08:10:00 2020-12-17 10:43:00 Hospital Encounter aJi Otero [facility] 1.2840.114 350.1.13.10 4.2.7.2.686 [id number] 071 [id number] [facility] 2020-12-16 13:23:54 2020-12-16 13:38:54 Laboratory Only Only, Adc Test MinervaJai veras [facility] 1.2840.114 350.1.13.10 4.2.7.2.686 [id number] [facility] 2020-12-16 13:00:00 2020-12-16 13:00:00 Outpatient R JAI OTERO [facility] [id number] [facility] 2020-12-16 00:00:00 2020-12-16 00:00:00 Orders Only Doctor Unassigned, [facility] 1.2840.114 350.1.13.10 4.2.7.2.686 [id number] 009 [id number] [facility] 2020-12-16 00:00:00 2020-12-16 00:00:00 Wilfred Flores [facility] Office Building One 1.2840.114 350.1.13.10 4.2.7.2.686 [id number] 044 [id number] [facility] 2020-12-10 00:00:00 2020-12-10 00:00:00 Patient Outreach Damien Quintanilla [facility] 1.2840.114 350.1.13.10 4.2.7.2.686 [id number] [facility] 2020-12-03 00:00:00 2020-12-03 00:00:00 Orders Only Doctor Unassigned, [facility] 1.0.114 350.1.13.10 4.2.7.2.686 [id number] 009 [id number] [facility] 2020-12-02 00:00:00 2020-12-02 00:00:00 Telephone Richard [facility] Office Building One .114 350.1.13.10 4.2.7.2.686 [id number] 044 [id number] [facility] 2020-11-27 12:00:00 2020-11-27 12:00:00 Outpatient R WILFRED RAMOS [facility] [id number] [facility] 2020-11-27 00:00:00 2020-11-27 00:00:[address] [facility] [id number] [facility] 2020-11-27 00:00:00 2020-11-27 00:00:00 Patient Secure [facility] ..114 350.1.13.10 4.2.7.2.686 [id number] 044 [id number] [facility] 2020-11-27 00:00:00 2020-11-27 00:00:00 Orders Only Doctor Unassigned, [facility] ..114 350.1.13.10 4.2.7.2.686 [id number] 009 [id number] [facility] 2020-11-26 00:00:00 2020-11-26 00:00:00 Telephone Richard [facility] Office Building One ..114 350.1.13.10 4.2.7.2.686 [id number] 044 [id number] [facility] 2020-11-24 00:00:00 2020-11-24 00:00:00 Telephone Richard [facility] Office Building One 1.840.114 350.1.13.10 4.2.7.2.686 [id number] 044 [id number] [facility] 2020-11-23 00:00:00 2020-11-23 00:00:00 Orders Only Doctor Unassigned, [facility] 1.2840.114 350.1.13.10 4.2.7.2.686 [id number] 009 [id number] [facility] 2020-11-21 11:56:32 2020-11-21 12:39:07 [facility] 1.840.114 350.1.13.10 4.2.7.2.686 [id number] [id number] [facility] 2020-11-21 12:30:00 2020-11-21 12:30:[address] PERRY [facility] [id number] [facility] 2020-11-21 00:00:00 2020-11-21 00:00:00 Telephone Richard [facility] Office Building One 1.840.114 350.1.13.10 4.2.7.2.686 [id number] 044 [id number] [facility] 2020-11-21 00:00:00 2020-11-21 00:00:00 Orders Only Doctor Unassigned, [facility] 1.840.114 350.1.13.10 4.2.7.2.686 [id number] [id number] [facility] 2020-11-20 14:45:00 2020-11-20 14:45:00 Outpatient Canelo WILFRED RAMOS [facility] [id number] [facility] 2020-11-17 14:00:00 2020-11-17 14:00:00 [address] PERRY [facility] [id number] [facility] 2020-11-13 12:00:00 2020-11-13 12:00:00 Outpatient [address] PERRY [facility] [id number] [facility] 2020-10-30 12:32:25 2020-10-30 12:47:25 Office Visit Richard [facility] 1.0.114 350.1.13.10 4.2.7.2.686 [id number] [facility] 2020-10-30 12:30:00 2020-10-30 12:30:[address] PERRY [facility] [id number] [facility] 2020-10-30 00:00:00 2020-10-30 00:00:00 Letter (Out) Richard [facility] 1..114 350.1.13.10 4.2.7.2.686 [id number] [facility] 2020-10-27 00:00:00 2020-10-27 00:00:00 Transition of Care Meseret Oden [place] 1.2840.114 350.1.13.10 4.2.7.2.686 [id number] [facility] 2020-10-24 16:23:00 2020-10-25 16:12:00 Emergency Aidee Lees Yaman [facility] 1..114 350.1.13.10 4.2.7.2.686 [id number] [facility] 2020-10-24 00:00:00 2020-10-24 00:00:00 [facility] 1..114 350.1.13.10 4.2.7.2.686 [id number] [facility] 2020-10-23 13:17:01 2020-10-23 23:59:00 Hospital Encounter Wilfred Ramos [facility] 1.2.840.114 350.1.13.10 4.2.7.2.686 [id number] [facility] 2020-10-23 00:00:00 2020-10-23 00:00:[address] PERRY [facility] [id number] [facility] 2020-10-22 00:00:00 2020-10-22 00:00:00 Telephone Richard [facility] 1.840.114 350.1.13.10 4.2.7.2.686 [id number] [facility] 2020-10-21 16:00:05 2020-10-21 23:59:00 Hospital Encounter Wilfred Ramos [facility] 1.2840.114 350.1.13.10 4.2.7.2.686 [id number] [facility] 2020-10-21 00:00:00 2020-10-21 00:00:00 Outpatient [address]ED PERRY 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 [id number] [facility] 2020-10-17 00:00:00 2020-10-17 00:00:00 Telephone Richard [facility] Office Building One 1.114 350.1.13.10 4.2.7.2.686 [id number] 044 [id number] [facility] 2020-10-17 00:00:00 2020-10-17 00:00:00 [facility] 1.114 350.1.13.10 4.2.7.2.686 [id number] 044 [id number] [facility] 2020-10-16 14:36:44 2020-10-16 15:13:20 Office Visit Wilfred Ramos [facility] Office Building One 1.114 350.1.13.10 4.2.7.2.686 [id number] 044 [id number] [facility] 2020-10-16 14:45:00 2020-10-16 14:45:00 Outpatient R WILFRED RAMOS [facility] [id number] [facility] 2020-09-17 00:00:00 2020-09-17 00:00:00 Refill Richard [facility] Office Building One 1.2.840.114 350.1.13.10 4.2.7.2.686 [id number] 044 [id number] [facility] 2020-09-10 15:00:00 2020-09-10 15:00:00 Out[address] PERRY [facility] [id number] [facility] 2020-09-05 00:00:00 2020-09-05 00:00:00 Francisco Ramos [facility] Office Building One 1.114 350.1.13.10 4.2.7.2.686 [id number] 044 [id number] [facility] 2020-08-15 16:03:55 2020-08-15 16:18:55 Hydrochloric Manufacturing Supervisor Visit Pob, [facility] Main Jamie Guzmán [facility] Building 1..114 350.1.13.10 4.2.7.2.686 [id number] [facility] 2020-08-15 15:45:00 2020-08-15 15:45:00 Outpatient R JAMIE GUZMÁN [facility] [id number] [facility] 2020-08-12 00:00:00 2020-08-12 00:00:00 Francisco Ramos [facility] Office Building One 1.114 350.1.13.10 4.2.7.2.686 [id number] 044 [id number] [facility] 2020-08-01 14:28:15 2020-08-01 16:57:50 Office Visit Jamie Guzmán [facility] Building 1.114 350.1.13.10 4.2.7.2.686 [id number] [facility] 2020-08-01 14:30:00 2020-08-01 14:30:00 Outpatient R JAMIE GUZMÁN [facility] [id number] [facility] 2020-08-01 00:00:00 2020-08-01 00:00:00 Orders Only Doctor Unassigned, [facility] 1.2840.114 350.1.13.10 4.2.7.2.686 [id number] [facility] 2020-05-23 00:00:00 2020-05-23 00:00:00 [facility] 1.2840.114 350.1.13.10 4.2.7.2.686 [id number] 044 [id number] [facility] 2020-05-11 00:00:00 2020-05-11 00:00:00 Refill Richard [facility] Office Building One 1.2840.114 350.1.13.10 4.2.7.2.686 [id number] 044 [id number] [facility] 2020-04-17 00:00:00 2020-04-17 00:00:00 Telephone Wilfred Ramos [facility] 1.2.840.114 350.1.13.10 4.2.7.2.686 [id number] 044 [id number] [facility] 2020-04-16 14:15:00 2020-04-16 23:59:00 Hospital Encounter Wilfred Ramos [facility] 1.2.840.114 350.1.13.10 4.2.7.2.686 [id number] [facility] 2020-04-16 13:28:41 2020-04-16 13:43:41 Office Visit Wilfred Ramos [facility] Building 1.2.840.114 350.1.13.10 4.2.7.2.686 [id number] 044 [id number] [facility] 2020-04-16 13:30:00 2020-04-16 13:30:00 Outpatient R WILFRED RAMOS [facility] [id number] [facility] 2020-04-16 00:00:00 2020-04-16 00:00:00 Orders Only Doctor Unassigned, [place] 1.2840.114 350.1.13.10 4.2.7.2.686 [id number] [id number] [facility] 2020-04-14 00:00:00 2020-04-14 00:00:00 Refill Jamie Guzmán [facility] Building 1.2.114 350.1.13.10 4.2.7.2.686 [id number] [facility] 2020-02-19 00:00:00 2020-02-19 00:00:00 Telephone Wilfred Ramos [facility] Office Building One 1..114 350.1.13.10 4.2.7.2.686 [id number] 044 [id number] [facility] 2020-02-18 00:00:00 2020-02-18 00:00:00 Refill Jamie Guzmán [facility] Building 1.2.114 350.1.13.10 4.2.7.2.686 [id number] [facility] 2020-02-11 12:41:00 2020-02-11 13:11:00 Office Visit Wilfred Ramos [facility] Building 1.2.114 350.1.13.10 4.2.7.2.686 [id number] 044 [id number] [facility] 2020-02-11 12:30:00 2020-02-11 12:30:00 Outpatient R WILFRED RAMOS [facility] [id number] [facility] 2020-02-11 00:00:00 2020-02-11 00:00:00 [facility] 1..114 350.1.13.10 4.2.7.2.686 [id number] 044 [id number] [facility] 2020-02-05 00:00:00 2020-02-05 00:00:[address] [facility] One 1.84.114 350.1.13.10 4.2.7.2.686 [id number] 044 [id number] [facility] 2020-01-30 15:00:00 2020-01-30 15:00:00 Outpatient R ROSIO WILLIAMSON [facility] [id number] [facility] 2020-01-30 14:14:49 2020-01-30 14:29:49 Telemedici ne Visit Zaingabriel Rosio [facility] Building 1.84.114 350.1.13.10 4.2.7.2.686 [id number] 044 [id number] [facility] 2020-01-25 09:39:29 2020-01-25 14:29:43 Telemedici ne Visit Jamie Guzmán [facility] Building 1.84.114 350.1.13.10 4.2.7.2.686 [id number] [facility] 2020-01-25 13:30:00 2020-01-25 13:30:00 Outpatient R JAMIE GUZMÁN [facility] [id number] [facility] 2020-01-03 00:00:00 2020-01-03 00:00:[address] [facility] Building 1.84.114 350.1.13.10 4.2.7.2.686 [id number] [facility] 2019-12-31 00:00:00 2019-12-31 00:00:[address]án [facility] Building 1.84.114 350.1.13.10 4.2.7.2.686 [id number] [facility] 2019-11-13 00:00:00 2019-11-13 00:00:00 Francisco Ramos [facility] Office Building One 1.2.840.114 350.1.13.10 4.2.7.2.686 [id number] 044 [id number] [facility] 2019-05-23 00:00:00 2019-05-23 00:00:00 Francisco Ramos [facility] Office Building One 1.2.840.114 350.1.13.10 4.2.7.2.686 [id number] 044 [id number] [facility] 2019-05-17 00:00:00 2019-05-17 00:00:00 Telephone Jamie Guzmán [facility] Building 1.2.840.114 350.1.13.10 4.2.7.2.686 [id number] 220 [id number] [facility] Results Test Description Test Time Test [...] at the origin of SMA and JERROD. [facility] Hemoglobin A1C Eflp4705-83-86 19:37:00* Test Item Value Reference Range Interpretation Comme nts POCT HBA1C (test code = 4548-4) 10.5 % 4-6 A Lab Interpretation (test cod e = 78017-2) Abnormal [facility] Hemoglobin A1C Cehn3157-70-57 19:37:00* Test Item Value Reference Range Interpretation Comme nts POCT HBA1C (test code = 4548-4) 10.5 % 4-6 A Lab Interpretation (test cod e = 70716-7) Abnormal [facility] HEMOGLOBIN A1C ERLT9796-97-96 20:23:00* Test Item Value Reference Range Interpretation Comme nts POCT HBA1C (test code = 4548-4) 9.5 % 4-6 A Lab Interpretation (test cod e = 67288-6) Abnormal [facility] HEMOGLOBIN A1C MTTX2719-71-98 20:23:00* Test Item Value Reference Range Interpretation Comme nts POCT HBA1C (test code = 4548-4) 9.5 % 4-6 A Lab Interpretation (test cod e = 88662-5) Abnormal [facility] Notes Date/Time Note Provider Source 2024-03-15 14:30:00 0554-86-77G80:30:00Addended by: AMRZENA BARRIGA on: 03/15/2024 02:20 PMModules accepted: Orders 78752-3Hbsjzwva KvoiohaeWZ1730-80-24D16:20:30Adden dum DocumentTXT1.2.840.389022.1.13.104 .2.7.2.818728|[id number] e for patient ntzk89394-3AsmuQNPSHXEDEXMOnfquhqc d C-CDA narrative text[address] GllhKduwvzowaMtpitbynmXPFP80561643 02ZMCMHSOILQYURAYFXFFOHP4256-95-81 T14:20:301.2.840.264496.1.72.3.15| 1.2.840.482764.1.13.104.2.7.2.7278 [id number] [facility] 2024-02-21 10:26:41 0453-30-64V58:26:41 Received radiology report scanned into pts chart and placed in providers basket. 83213-5Oeqvqeujv encounter QgavLE2870-72-14C02:28:45Telephone encounter NoteTXT1.2.840.201470.1.13.104.2.7 .2.712356|8433491551RWCgvgfnfem for patient mlje76949-1RjwiMUTFQHXNCONJfggcrrm d C-CDA narrative oyql695304679Fkgshi [address]vd[place] 50GMFPRYHCSESZAGFRSLTXVK3348-26-30 T10:28:451.2.840.038362.1.72.3.15| 1.2.840.848287.1.13.104.2.7.2.7278 [id number] Rubi Mackey [facility] 2024-02-13 14:30:57 5146-00-87R02:30:57 Images from the original note were not [...] (12/01/2023) by Kendra Mcgee refill: 12/08/2023x #: [id number] Substance Voqzkk4902/13/2024 02:18 PMProtocol Details Valid encounter within last 3 monthsPain agreement on fileThis refill cannot be delegatedTo be filled at: [place], [place] - [address] [facility] VisitsDate Type Provider Dept01/12/24 Office Visit Anju Hanna PA [facility]11/14/23 Office Visit Rosio Williamson MD [facility]10/05/23 Office Visit Wilfred Ramos MD [facility]erman[facility]09/21/23 Office Visit Wilfred Ramos [...] authorizing provider and meeting all other requirements 04754-2Qkintvzch encounter SmhfBQ3752-84-66V53:31:07Telephone encounter NoteTXT1.2.840.659631.1.13.104.2.7 .2.975588|7836646321ZBPnkahmudh for patient wsaq62537-7MrfrDGCLBVAXJALOfckgdtq d C-CDA narrative textUTMBUTMB - Qgamag251 University QanhJmtsvfksvRsyiejhegUGRV86062587 23NNIZWGCPUAKZZQIVMLFZNL2143-84-49 T14:31:071.2.840.737739.1.72.3.15| 1.2.840.618530.1.13.104.2.7.2.7278 [id number] [facility] 2024-01-11 12:33:00 0616-38-74U59:33:00 Regarding: dizzy, blurred vision, pain and numbness in feet----- Message from Damaris Henry sent at 01/11/2024 12:32 PM CDT -----Kierra Sweeney is a 88 year old female 92479-6Kfnrmjagk encounter XjqtNB8846-45-74G00:33:03Telephone encounter NoteTXT1.2.840.732071.1.13.104.2.7 .2.548382|3287979222MRGimmvybnj for patient jvna07349-6ZqngCGKVNPNBFAZTdeqlnoq d C-CDA narrative sikw617141439Pijanuttx Burk RNUT[address] StreetViuiAchnymcsaIgdykwgsfRGHV09748798 18HWJJOCPEZGWAPEJCPHKDWD3665-17-63 T12:33:031.2.840.721772.1.72.3.15| 1.2.840.479344.1.13.104.2.7.2.7278 [id number] Vanessa Colvin RN [facility] 2024-01-11 12:33:00 1892-03-54C95:33:00 Adult Triage AssessmentLast Clinic Visit: 11/14/23 - [facility] for DiverticulitisPrimary Symptom: pain and numbness in [...] AND present > 4 weeks)Protocols used: Neurologic Lmzpqkh-ZXUFE-CNBvcz made with PCP clinic for tomorrow due to increased neuropathy pain. Call back advice given, patient V/U.DICK Alarcon, [facility] 91775-1Sdxnadpyz encounter ZmpjQH5428-44-83R81:56:59Telephone encounter NoteTXT1.2.840.119823.1.13.104.2.7 .2.337259|9596145919EYSwqnnhfou for patient rcek98364-4AuhqBPRYPJIAABKWmpbuxtz d C-CDA narrative text[address] DyhkSoulypvbzCtydjbarzSZEJ18043956 12OYAYLEWRXFYDKSTIOERKYU4717-25-88 T12:56:591.2.840.222857.1.72.3.15| 1.2.840.183614.1.13.104.2.7.2.7278 [id number] [facility] 2023-12-22 09:00:02 4301-63-58H20:00:02 Attempted to contact patient. No answer. Left message to call back.Kierra Sweeney (Minaya: [phone])ARMANDO Help? Call us at Statussent iconSent to Plan todayDrugHYDROcodone-Acetaminophen 7.5-325MG tabletsePA cloud logoFormWellCare Medicare Electronic Prior Authorization Request Form (2016 NCPDP) 99822-4Bmfqaxqsw encounter MazkPS5795-83-43W36:00:10Telephone encounter NoteTXT1.2.840.106218.1.13.104.2.7 .2.788856|3236786746IXKadqgwecn for patient xfsn36924-6ZpbtQIMXKAKKFHTKclwxjkd d C-CDA narrative textUT73 Anderson StreetEpmaTsupwntlrUrcfembydRHBT52556901 09AAAOACYZVSJOTQZXIGLYEU6339-47-70 T09:00:101.2.840.546456.1.72.3.15| 1.2.840.782736.1.13.104.2.7.2.7278 [id number] [facility] 2023-12-20 16:41:56 9759-70-60O29:41:56 Kierra Sweeney is a 88 year old female whose daughter is calling because HYDROcodone-acetaminophen 7.5-325 mg per tablet requires a prior authorization for insurance. The pharmacy has told the pt's daughter that they have faxed the PA to the clinic.Please advise.[place], [place] - [address] [place] [address]Hullr: [phone] Rvyxjkzavheqhv signed by Melissa Patel at 12/20/2023 4:44 PM LWY10797-1Gvtjdtwad encounter HcbvJH2363-57-63L50:44:41Telephone encounter NoteTXT1.2.840.611613.1.13.104.2.7 .2.249842|8778351935FSWsvjzrvdc for patient ibuj75649-8QwbwIUCTBMKHLOGDokrzxbf d C-CDA narrative eofp848964029Ecok [address] PxctDbtkxpiyzXiwbntkaqSCFF45003768 26KAIQJUNTELVRPYKYBRPCAN5548-24-47 T16:44:411.2.840.004677.1.72.3.15| 1.2.840.786357.1.13.104.2.7.2.7278 [id number] Melissa [facility] 2023-12-08 16:08:54 9952-44-99P20:08:54 Last Refilled:lisinopriL 20 mg tablet 90 tablet 0 09/21/2023 -- --Sig: Take 1 tablet by mouth in the morning.Sent to pharmacy as: lisinopriL 20 mg tablet (PRINIVIL,ZESTRIL)Class: eRXRoute: OralOrder: [id number]/Time Signed: 09/21/2023 13:12E-Prescribing Status: Receipt confirmed by pharmacy (09/21/2023 1:15 PM SOCIAL SERVICE AGENCY DIRECTOR)Recent VisitsDate Type Provider Dept11/14/23 Office Visit Rosio Williamson MD [facility]10/05/23 Office Visit Wilfrde Ramos MD [facility]09/21/23 Office [...] Office Visit Wilfred Ramos MD [facility] Med10/25/22 Office Visit Wilfred Ramos MD [facility] MedShowing recent visits within past 540 days with a meds authorizing provider and meeting all other requirementsFuture AppointmentsNo visits were found meeting these conditions.Showing future appointments within next 150 days with a meds authorizing provider and meeting all other requirements [address]249-8Joylmkpxe encounter CaiaGL3170-89-20Q57:10:17Telephone encounter NoteTXT1.2.840.810366.1.13.104.2.7 .2.858250|4207224405JZQlmapdhqo for patient tsku75178-1RhbqBWIDWOBVVHMQjgmisxy d C-CDA narrative gpmf480257940Sbsibc Linus[address]vdGalvestonGalvestonTXTX[address] 26GGCBLBPZKJJXUXYLVXLWTF9829-01-09 T16:10:171.2.840.684365.1.72.3.15| 1.2.840.733931.1.13.104.2.7.2.7278 [id number] Marzena Linus [facility] 2023-12-01 09:45:20 3240-10-10N12:45:20 Images from the original note were not included.Notes: 11/22/22Last Refilled:[place], [place] - [address]: Mtsnvb VisitsDate Type Provider Dept11/14/23 Office Visit Rosio Williamson MD [facility]10/05/23 Office Visit Wilfred Ramos MD [facility] Med09/21/23 Office Visit Wilfred Ramos MD Ang[facility] Med04/20/23 Office Visit Wilfred Ramos MD [facility] Med03/10/23 Office Visit Wilfred Ramos MD [facility] Med02/24/23 Office Visit Wilfred Ramos MD [facility] Med01/05/23 Office Visit Wilfred Ramos MD [facility] Med12/16/22 Office Visit Wilfred Ramos MD [facility] Med11/25/22 Office Visit Wilfred Ramos MD [facility] Med10/25/22 Office Visit Wilfred Ramos MD [facility] MedShowing recent visits within past 540 days [...] (09/21/2023) by Kendra Mcgee refill: 09/21/2023Rx #: [id number] Substance Tzwaid7912/01/2023 09:44 AMProtocol Details Valid encounter within last 3 monthsPain agreement on fileThis refill cannot be delegatedTo be filled at: [place], [place] - [address] [address]Xraawycer encounter StwfAS5953-54-75J22:45:39Telephone encounter NoteTXT1.2.840.814805.1.13.104.2.7 .2.496047|8081651064KRCfkldzzrh for patient xnkk68155-9ApowTDNNHBXKNQACjssyvrz d C-CDA narrative rsia005782474Rapghw L Shukla[address]TXTX[address] 37WUVCDDZXJBNPPTUGFIRXMT1210-08-41 T09:45:391.2.840.470711.1.72.3.15| 1.2.840.235235.1.13.104.2.7.2.7278 [id number] [facility] 2023-11-28 13:49:09 3861-09-91G76:49:09 Attempted to reach DOP no answer left a V/M 30766-6Mxmcqkmig encounter SmumET1999-55-17G40:49:31Telephone encounter NoteTXT1.2.840.541988.1.13.104.2.7 .2.536522|6630108155JHWsvpcwmvw for patient uuwc24039-6VhlaZQAJWDXVZHPKzdenlfx d C-CDA narrative sxio326928877Kkihxyb R Leon [address]TXTX[address] 15UXPXSTHPPXTCHWKLLSVNAS5282-39-61 T13:49:311.2.840.644108.1.72.3.15| 1.2.840.076537.1.13.104.2.7.2.7278 [id number] Susan Padgett MA [facility] 2023-11-28 11:59:40 6459-08-44X36:59:40 She should be done with these. How is she doing? 87719-1Zmnfscnma encounter QrpvXL6488-45-89Q48:00:12Telephone encounter NoteTXT1.2.840.406613.1.13.104.2.7 .2.184295|8126710002IREeysqcuki for patient ksdm20513-1NzjxIEVKJCSNVIEFxyezmag d C-CDA narrative text[address]TXTX775[address]75 89SUAQVOITVPSLGAIILOXZDM0358-09-52 T12:00:121.2.840.594243.1.72.3.15| 1.2.840.562358.1.13.104.2.7.2.7278 [id number] [facility] 2023-11-28 07:50:36 4113-18-17M23:50:[address] Ramos patient 74491-8Eujawafra encounter VdtcAZ7685-71-03H72:51:08Telephone encounter NoteTXT1.2.840.156664.1.13.104.2.7 .2.650883|3432031721ILGnlsbjuoq for patient sytz48833-7PqdsETBPKLYUPFHIrytpqkd d C-CDA narrative [address]TXTX[address]75 22PRCGXCONUGQIYWPYIIJSEO6978-50-73 T07:51:081.2.840.510954.1.72.3.15| 1.2.840.949122.1.13.104.2.7.2.7278 [id number] [facility] 2023-11-25 11:44:12 6893-85-36X84:44:12 Please review and advise. 65578-2Nvpvhwhrd encounter QkdnNG8837-93-19N19:44:34Telephone encounter NoteTXT1.2.840.159131.1.13.104.2.7 .2.379937|9735907159WQPnpciychy for patient cjhr17326-2PifnWHTLOXGCMFYAwoqrlzf d C-CDA narrative imgj293009140Sanveo L Cantu [address]vdGalvestonGalvestonTXTX[address] 76CPSDMHUNNCZYNUEATNHOBZ4974-85-98 T11:44:341.2.840.711664.1.72.3.15| 1.2.840.886954.1.13.104.2.7.2.7278 [id number] Faiza Dill [facility] 2023-11-25 11:20:27 0546-90-14Q91:20:27 Patient's daughter "Cami"called stating the medication's that Dr. Williamson prescribe her mom "Kierra "on 11/14 it's causing her to feel sick. She's requesting an alternative for the following meds. Please contact Cami by phone or Mychart.Cami phone number: [phone] HCl (CIPRO) 500 mg tabletmetroNIDAZOLE (FLAGYL) 500 mg tablet 11502-5Cskqjxqqf encounter KedxKG0482-76-96A38:34:55Telephone encounter NoteTXT1.2.840.605050.1.13.104.2.7 .2.731647|2503008453AOVibysaebb for patient ecmp06948-4EguaGINUQTZMIGKGcwbvmra d C-CDA narrative shtz902483863Eotybaaue Buendia[address]TXTX[address] 15RAZRKANGEHZMJYNUIEZESF5346-21-35 T11:34:551.2.840.983788.1.72.3.15| 1.2.840.953308.1.13.104.2.7.2.7278 [id number] Karis Hatch [facility] 2023-06-20 08:19:12 8684-28-28F26:19:12 Images from the original note were not included.Last Refilled: 05/16/23Notes: [facility] - [place], [place] - [address]: Rcnfsx VisitsDate Type Provider Dept 04/20/23 Office Visit [...] [facility] 10/25/22 Office Visit Wilfred Ramso MD [facility] 09/22/22 Office Visit Wilfred Ramos MD [facility] 02/25/22 Office Visit Wilfred Ramos MD [facility] Showing recent [...] Ramos MD Last refill: 05/16/2023 Rx #: [id number] Controlled Substance Failed 06/18/2023 10:04 AM Protocol Details Valid encounter within last 3 months Pain agreement on file This refill cannot be delegated To be filled at: [facility], [place], [place] - [address] [address]Hvcbdkvxn encounter HghzBA5850-48-30K15:19:40Telephone encounter NoteTXT1.2.840.461240.1.13.104.2.7 .2.022960|9683488602NIJvuohwkkv for patient ivkw98248-0DhtcUX444243179Vikcuj L Cantu [address]TX[address] 74ROMZHRCMZDFHFNPBIUVKYP8019-06-60 T08:19:401.2.840.339701.1.72.3.15| 1.2.840.947893.1.13.104.2.7.2.7278 [id number] [facility] 2023-05-17 16:17:22 3309-24-10W45:17:22 Sent prescription for accu-chek 01072-6Vmgbzsdag encounter NmpfHO4074-90-94F69:18:23Telephone encounter NoteTXT1.2.840.212462.1.13.104.2.7 .2.002897|8106599455OFTogaskubj for patient pwbp72771-8GoosDE302243111Kflc D [place] [id number] 15JUHTNVOYNCUXZUPUVRBYDI8587-48-12 T16:18:231.2.840.586318.1.72.3.15| 1.2.840.560589.1.13.104.2.7.2.7278 [id number] Kia Perry ALARM SERVICE TECHNICIAN [facility] 2023-05-17 15:47:18 4659-84-70W75:47:18 Images from the original note were not included. 51596-3Ozpvslqwe encounter JnxnQZ9481-06-38P55:47:42Telephone encounter NoteTXT1.2.840.713470.1.13.104.2.7 .2.939770|[id number] for patient egqc68309-1MbxqLK419794411Ykelxn M [id number] 23YCBMEDXZSTAELKXNTZDEQF1271-39-40 T15:47:421.2.840.035558.1.72.3.15| 1.2.840.608269.1.13.104.2.7.2.7278 [id number] Stefanie Storey [facility] 2023-05-13 14:19:29 5739-17-89M52:19:29 Patient daughter, Cami, called saying the HYDROcodone-ibuprofen 7.5-200 mg per tablet is on backorder. She's wanting to know if the medication could be switched to Hydrocodone with Tylenol. Please call. 66529-1Bogudahej encounter FkmgMI0391-37-70Y98:22:14Telephone encounter NoteTXT1.2.840.041096.1.13.104.2.7 .2.087321|[id number] for patient qige28204-2BvsbWH523257816Xyhep K Mar[id number] 22YRSGNXQDEIQSNTLBCCJYNV9511-32-90 T14:22:141.2.840.972683.1.72.3.15| 1.2.840.022265.1.13.104.2.7.2.7278 [id number] Yarely Montemayor [facility] 2023-04-27 15:07:27 8424-86-84C21:07:27 Forms were faxed on 04/26/2023 at 5pm. 97985-0Xokttrnhf encounter UnxjYX5922-03-75N73:07:53Telephone encounter NoteTXT1.2.840.810123.1.13.104.2.7 .2.383648|[id number] for patient [id number] J Medina MA[address] Kg[id number] 75WHUGQOWFLLEBRNXQHFLRDL5283-26-22 T15:07:531.2.840.072039.1.72.3.15| 1.2.840.084753.1.13.104.2.7.2.7278 [id number] Brittany Lees MA [facility] 2023-04-27 06:39:39 9487-63-37S09:39:39 I don't know about forms 62945-0Cpennrfbt encounter IspfAE7321-96-30V84:40:03Telephone encounter NoteTXT1.2.840.617070.1.13.104.2.7 .2.247387|[id number] for patient [id number] 27JFXIUBLJHQQRLDSYXLAGNG6904-85-60 T06:40:031.2.840.568941.1.72.3.15| 1.2.840.805815.1.13.104.2.7.2.7278 [id number] [facility] 2023-04-26 14:42:04 8777-57-71Z04:42:04 Ivonne [place] [facility] [place] forms sent back so they can start the services for the pt. Ivonne stated that the forms were faxed on April 13 and nothing has been sent backPlease advise 06910-6Eduzvvqjy encounter JtxsGH6977-72-53D06:44:38Telephone encounter NoteTXT1.2.840.908185.1.13.104.2.7 .2.204389|[id number] for patient [id number] G Ortiz[address] Ca[id number] 70LWWQDDXBSRLSYYRQVMTAMH8747-74-40 T14:44:381.2.840.180299.1.72.3.15| 1.2.840.801853.1.13.104.2.7.2.7278 [id number] Joe Pham [facility] 2023-04-26 14:36:39 4911-73-04L82:36:39 Patients daughter Cami is calling in to check status of forms.Please advise 62211-9Yrvxzhvke encounter NxxtET0771-02-80A45:37:18Telephone encounter NoteTXT1.2.840.835070.1.13.104.2.7 .2.202320|[id number] for patient [id number] S [id number] 33GJHUBSGPHYQBTPFSLWVZRM6280-35-66 T14:37:181.2.840.387221.1.72.3.15| 1.2.840.468020.1.13.104.2.7.2.7278 [id number] Vidal Domínguez [facility] 2023-04-25 10:39:43 8620-70-07L79:39:43 Ivonne from [facility] called following up on Forms that provider needed to sign in able for them to starts services. [phone] fx [phone]. Please advise 40851-9Oidymwzvq encounter ZzqlNA8892-41-19P37:41:47Telephone encounter NoteTXT1.2.840.695552.1.13.104.2.7 .2.008393|[id number] for patient [id number] A [id number] 41KJZXKLQHSEKDSFYSNNWDFG6137-93-18 T10:41:471.2.840.528927.1.72.3.15| 1.2.840.615592.1.13.104.2.7.2.7278 [id number] Tiffanie Lopezlluvia [facility] 2023-04-20 14:30:00 3401-94-88K11:30:00 Addended by: SUSAN ALVAREZ on: 05/05/2023 07:54 AM Modules accepted: Orders [id number] OnhjnzhgPS4747-59-56B80:54:28Adden dum DocumentTXT1.2.840.863823.1.13.104 .2.7.2.140443|[id number] e for patient zbon27531-8KggbZZGTMXAUAQ[address] Jd[id number] 34XWCDJEXPPWYOUDHTSQKMXN1336-61-35 T07:54:281.2.840.069682.1.72.3.15| 1.2.840.236082.1.13.104.2.7.2.7278 [id number] [facility]
[2024-03-16] MEDS ORDERED: ONDANSETRON 4 MG/2 ML VIAL ONE (15:46)
[2024-03-16 15:47] LABS: Absolute Eosinophils 0.3 K/uL (0-0.5); Absolute Lymphocytes (CBC) 0.6 K/uL (0.7-4.9); Absolute Monocytes 0.5 K/uL (0.1-1.3); Absolute Neutrophil 3.9 K/uL (1.8-8.0); Basophils % 0.2 % (0-1.3); Eosinophils % 6.3 % (0-4.4); Hematocrit 30.9 % (36.0-45.0); Hemoglobin 10.3 g/dL (12.0-15.0); Lymphocytes % 11.9 % (15.3-44.8); MCH 29.8 pg (27.0-35.0); MCHC 33.3 g/dL (32.0-36.0); MCV 89.4 fL (80-100); MPV 7.6 fL (7.6-11.3); Monocytes % 9.1 % (3.3-12.3); Neutrophils % 72.5 % (41.7-73.7); Platelets 381 thou/uL (152-406); RBC Red Blood Cell Count 3.45 M/uL (3.86-4.86); Red Cell Distribution Width 13.8 % (12.1-15.2)
[2024-03-16 15:56] LABS: ALT/SGPT 16 U/L (13-56); Albumin 2.7 g/dL (3.4-5.0); Albumin/Globulin Ratio 0.8 (1.1-1.8); Alkaline Phosphatase 86 U/L (45-117); Anion Gap 10.6 mEq/L (5.0-15.0); BUN Blood Urea Nitrogen 24 mg/dL (7-18); Bicarbonate 27 mEq/L (21-32); Bilirubin Total 0.2 mg/dL (0.2-1.0); Globulin 3.6 g/dL (2.3-3.5); Glomerular Filtration Rate 35 ml/min (=/>90); Glucose Level 311 mg/dL (74-106); Lipase 64 U/L (13-75); Potassium 4.6 mEq/L (3.5-5.1); Protein, Total 6.3 g/dL (6.4-8.2); Sodium Level 125 mEq/L (136-145)
[2024-03-16 15:57] LABS: AST/SGOT < 10 U/L (15-37)
--- NOTE | 2024-03-16 17:17 | RAD REPORT ---
EXAM DESCRIPTION: CTAbdomen Pelvis W Contrast - 03/16/2024 5:05 pm CLINICAL HISTORY: Abdominal pain. ABD PAIN COMPARISON: Stone Protocol dated 03/09/2024; Renal Ultrasound-Complete dated 03/08/2024; Angio Aorta Fo r Dissection dated 02/20/2024 TECHNIQUE: Biphasic CT imaging of the abdomen and pelvis was performed with 100 ml non-ionic IV cont rast. All CT scans are performed using dose optimization technique as appropriate and may include automated exposure control or mA/KV adjustment according to patient size. FINDINGS: The lung bases are clear.Cholecystectomy. Moderate hiatal hernia. The liver, spleen, adrenal glands and kidneys are within normal limits. Multiple punctate calculi in the pancreas compatible with chronic pancreatitis. Aortoiliac atherosclerosis. No bowel obstruction, free air, free fluid or abscess. Moderate stool is present throughout the colon . The appendix is not identified as a discrete structure, however, no secondary findings of appendici tis are identified. No evidence of significant lymphadenopathy. No suspicious bony findings. IMPRESSION: No acute intra-abdominal or pelvic finding. Chronic pancreatitis. Moderate stool retention throughout the colon.
--- NOTE | 2024-03-16 17:18 | RAD REPORT ---
EXAM DESCRIPTION: CT - Head Brain Wo Cont - 03/16/2024 5:05 pm CLINICAL HISTORY: CONFUSED Headache, drowsiness COMPARISON: Head angio dated 03/16/2024 TECHNIQUE: All CT scans are performed using dose optimization technique as appropriate and may inclu de automated exposure control or mA/KV adjustment according to patient size. FINDINGS: No intracranial hemorrhage, hydrocephalus or extra-axial fluid collection.Moderate brain a trophy is seen. Moderate sized area of diminished density in the right parietal region likely related to previous infarction. The paranasal sinuses and mastoids are clear. The calvarium is intact. Vertebral atherosclerosis. IMPRESSION: No acute intracranial abnormality. Area diminished density in the right parietal lobe p resumably related to previous infarct. If there is clinical concern for CVA, MRI brain would be recom mended for follow-up.
--- NOTE | 2024-03-16 17:21 | RAD REPORT ---
EXAM DESCRIPTION: CT - Head angio - 03/16/2024 5:05 pm CLINICAL HISTORY: CONFUSED Headache, drowsiness, alteration of awareness COMPARISON: No comparisons TECHNIQUE: CT angiography of the head was performed with MIPs. All CT scans are performed using dose optimization technique as appropriate and may include automated exposure control or mA/KV adjustment according to patient size. FINDINGS: No evidence of large vessel occlusion. No evidence of aneurysm is detected. Focal right M1 segment narrowing is present likely flow-limiting stenosis. Antegrade flow is seen in the vertebral arteries. The right vertebral artery appears dominant. There is moderate stenosis mid right vertebral artery caused by hard plaque. The left vertebral artery like ly terminates in PICA, normal variant anatomy. The visualized dural venous sinuses are patent. IMPRESSION: Moderate stenosis mid right vertebral artery. Focal significant stenosis right M1 segment, likely flow limiting. No large vessel occlusion.
--- NOTE | 2024-03-16 17:24 | RAD REPORT ---
EXAM DESCRIPTION: CT - Neck Angio - 03/16/2024 5:05 pm CLINICAL HISTORY: ams Headache, drowsiness, alteration of awareness. COMPARISON: No comparisons TECHNIQUE: CT angiography of the neck vessels was performed with MIPs. All CT scans are performed using dose optimization technique as appropriate and may include automated exposure control or mA/KV adjustment according to patient size. FINDINGS: A left aortic arch is identified with normal three vessel configuration of the great vesse ls. Mild thyroid goiter is seen. No significant flow abnormality is seen of the common carotid bilaterally. Large hard plaque is seen in the left carotid bulb. This results in stenosis estimated at 80-90% base d on NASCET criteria. Large mixed plaque is present involving the proximal right ICA resulting in thalia nosis estimated at 99% based on NASCET criteria. Normal forward flow is seen within both vertebral arteries. The right vertebral artery is dominant. I ntracranially there is a focal stenosis of the right vertebral artery seen estimated 70-80%. 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 80-90% stenosis proximal left ICA. 70-80% stenosis mid right intracranial vertebral artery. NASCET criteria used. Mild 0-49% stenosis Moderate 50-69% stenosis Severe 70-99% stenosis
--- NOTE | 2024-03-16 17:46 | RAD REPORT ---
EXAM DESCRIPTION: RAD - Chest Single View - 03/16/2024 5:34 pm CLINICAL HISTORY: COUGH Chest pain. COMPARISON: Chest Single View dated 03/07/2024; Chest Single View dated 02/24/2024; Chest Single View d ated 02/20/2024; Chest Single View dated 11/18/2023 FINDINGS: Portable technique limits examination quality. Moderate pulmonary edema. The heart is mildly enlarged in size. No displaced fractures.Aortic atheros clerosis. IMPRESSION: Moderate CHF.
--- NOTE | 2024-03-16 18:00 | ER ---
Nurse's Notes [facility] Name: Yancy Sweeney Age: 88 yrs Sex: Female : 1935 Arrival Date: 03/16/2024 Time: 15:20 Bed 6 Private MD: Diagnosis: Hypo-osmolality and hyponatremia;Altered mental status, unspecified Presentation: 03/16 15:22 Chief complaint: EMS states: AMS. Pt lives in a Senior community apartment and walked aa5 to the office without wearing a shirt. Pt is normally A\T\O x 4 and was A\T\O x 0 upon scene arrival by EMS. Pt c/o slight numbness to right arm and feeling dizzy and nauseated. 15:22 Coronavirus screen: nausea. Ebola Screen: Patient denies travel to an [facility]-affected [facility] area in the 21 days before illness onset. No acute neurological deficit is noted. The patients blood glucose was checked prior to arriving to the hospital and was found to be hyperglycemic. Initial Sepsis Screen: Does the patient meet any 2 criteria? No. Patient's initial sepsis screen is negative. Does the patient have a suspected source of infection? No. Patient's initial sepsis screen is negative. Risk Assessment: Do you want to hurt yourself or someone else? Patient reports no desire to harm self or others. Onset of symptoms was March 16, 2024. 15:22 Method Of Arrival: EMS: [place] [id number] 15:22 Acuity: NAOMIE 2 aa 15:22 Care prior to arrival: Medication(s) given: zofran 4 mg, IV initiated. 20 GA, in the aa5 right antecubital area, Glucose check: 250. Stroke Activation: Symptom onset < 3 hours Physician: ED Attending; Name: ; Notified At: ; Arrived At: Physician: Mid-Level Provider; Name: ; Notified At: ; Arrived At: Physician: [not used]; Name: ; Notified At: ; Arrived At: Physician: [not used]; Name: ; Notified At: ; Arrived At: Physician: [not used]; Name: ; Notified At: ; Arrived At: Historical: - Allergies: 15:25 Ciprofloxacin; cant take it with levoquin together; aa5 15:25 Levofloxacin; aa5 - Home Meds: 16:11 metformin 750 mg Oral Tablet, Extended Release 24 hr once [Active]; furosemide 40 mg aa5 Oral tablet once [Active]; clopidogrel 75 mg oral tablet once [Active]; potassium chloride 20 mEq Oral tablet, extended release once [Active]; metoprolol tartrate 25 mg Oral tablet 2 times per day [Active]; lisinopril 20 mg Oral tablet once [Active]; Eliquis 2.5 mg oral tablet 2 times per day [Active]; - PMHx: 15:25 diabetes mellitus; Hypercholesterolemia; Hypertensive disorder; Myocardial infarction; aa5 15:25 Atrial fibrillation; aa5 - PSHx: 15:25 Cholecystectomy; Stented artery; Total abdominal hysterectomy; aa5 - Immunization history:: Adult Immunizations unknown. - Infectious Disease History:: Denies. - Social history:: Smoking status: Patient/guardian denies using tobacco. Screenin:25 [facility] ED Fall Risk Assessment (Adult) History of falling in the last 3 months, rs5 including since admission No falls in past 3 months (0 pts) Confusion or Disorientation Yes (5 pts) Intoxicated or Sedated No (0 pts) Impaired Gait Yes (1 pt) Mobility Assist Device Used Yes (1 pt) Altered Elimination No (0 pt) Score/Fall Risk Level 0 - 2 = Low Risk Oriented to surroundings, Maintained a safe environment. Abuse screen: Denies threats or abuse. Nutritional screening: No deficits noted. Tuberculosis screening: No symptoms or risk factors identified. Assessment: 15:22 General: Appears uncomfortable, Behavior is calm, cooperative. Pain: Denies pain. aa5 Neuro: Level of Consciousness is awake, alert, obeys commands, Oriented to person, place, situation, Financial Representative are equal bilaterally Moves all extremities. Speech is normal, Facial symmetry appears normal, Reports dizziness, Pt reports slight numbness to right arm. . Cardiovascular: Heart tones S1 S2 present Rhythm is regular. Respiratory: Airway is patent Respiratory effort is even, unlabored, Respiratory pattern is regular, symmetrical. GI: Abdomen is non-distended, Bowel sounds present X 4 quads. Abd is soft and non tender X 4 quads. Reports nausea, Patient currently denies vomiting. : No signs and/or symptoms were reported regarding the genitourinary system. EENT: No signs and/or symptoms were reported regarding the EENT system. Derm: Skin is pink, warm \T\ dry. Musculoskeletal: Range of motion: intact in all extremities. 15:35 Reassessment: Pt denies numbness to right arm, reports some itching to natasha hands. . aa5 16:47 Reassessment: Pt resting in bed with eyes closed, extra warm blankets provided for aa5 comfort, reports nausea has improved. . 17:08 Reassessment: Pt had episode of tachycardia HR 120 bpm that lasted a few seconds, MD hardy aware and repeat EKG completed by clinical laboratory technician. HR decreased to 74 bpm. . 17:08 Reassessment: Patient is alert, oriented x 3, equal unlabored respirations, skin aa5 warm/dry/pink. 17:15 Reassessment: Patient and/or family updated on plan of care and expected duration. Pain rs5 level reassessed. Patient is alert, oriented x 3, equal unlabored respirations, skin warm/dry/pink. 18:14 Reassessment: Patient and/or family updated on plan of care and expected duration. Pain rs5 level reassessed. Patient is alert, oriented x 3, equal unlabored respirations, skin warm/dry/pink. Neuro: Level of Consciousness is awake, alert, obeys commands, Oriented to person, place, situation. 19:36 Reassessment: Patient appears in no apparent distress at this time. Patient and/or rg5 family updated on plan of care and expected duration. Pain level reassessed. Patient is alert, oriented x 3, equal unlabored respirations, skin warm/dry/pink. Patient states feeling better. General: Appears in no apparent distress. comfortable, Behavior is calm, cooperative. Pain: Complains of pain in head Pain does not radiate. Pain currently is 2 out of 10 on a pain scale. Quality of pain is described as aching. Neuro: No deficits noted. Level of Consciousness is awake, alert, obeys commands, Oriented to person, place, time, situation. Cardiovascular: No deficits noted. Heart tones S1 S2 present Capillary refill < 3 seconds Patient's skin is warm and dry. Respiratory: No deficits noted. Airway is patent Respiratory effort is even, unlabored, Respiratory pattern is regular, symmetrical, Breath sounds are clear bilaterally. GI: Abdomen is non-distended, Bowel sounds present X 4 quads. Abd is soft and non tender. 21:43 Reassessment: Patient appears in no apparent distress at this time. No changes from bm8 previously documented assessment. Patient and/or family updated on plan of care and expected duration. Pain level reassessed. pt is a0x2 reorient to time. Vital Signs: 15:22 BP 145 / 81; Pulse 68; Resp 18 S; Temp 97.3(TE); Pulse Ox 100% on R/A; aa5 16:47 BP 105 / 67; Pulse 70; Resp 16 S; Pulse Ox 97% on R/A; aa5 17:30 BP 143 / 60; Pulse 89; Resp 16 S; Pulse Ox 96% on R/A; aa5 18:15 BP 120 / 65; Pulse 70; Resp 17; Pulse Ox 99% on R/A; rs5 19:36 BP 115 / 52; Pulse 93; Resp 11; Temp 97.3; Pulse Ox 100% on R/A; Pain 2/10; rg5 21:43 BP 128 / 59; Pulse 71; Resp 20; Temp 97.3; Pulse Ox 99% on 2 lpm NC; Pain 2/10; bm8 19:36 Pain Scale: Adult rg5 21:43 Pain Scale: Rose-Castillo (FACES) bm8 [place] Coma Score: 19:36 Eye Response: spontaneous(4). Motor Response: obeys commands(6). Verbal Response: rg5 oriented(5). Total: 15. 21:43 Eye Response: spontaneous(4). Motor Response: obeys commands(6). Verbal Response: bm8 oriented(5). Total: 15. ED Course: 15:22 Patient arrived in ED. eb 15:22 Arm band placed on. aa5 15:22 Patient has correct armband on for positive identification. Placed in gown. Bed in low aa5 position. Call light in reach. Side rails up X2. Client placed on continuous cardiac and pulse oximetry monitoring. NIBP monitoring applied. house steward/stewardess on. Pulse ox on. NIBP on. 15:25 Dimitry Samuel MD is Attending Physician. ec2 15:25 No provider procedures requiring assistance completed. rs5 15:42 Stephanie Hall, RN is Primary Nurse. aa5 15:45 Triage completed. aa5 17:06 CT Head Brain wo Cont In Process Unspecified. EDMS 17:07 CT Head Angio In Process Unspecified. EDMS 17:07 CT Neck Angio In Process Unspecified. EDMS 17:07 Abdomen In Process Unspecified. EDMS 17:36 CXR XRAY In Process Unspecified. EDMS 17:48 UDS Sent. jg11 17:48 Urine collected: straight cath specimen, clear. Straight cath inserted, using sterile jg11 technique, 16 Fr. Specimen obtained. Patient tolerated well. 17:59 Lincoln Phan MD is Hospitalizing Provider. ec2 18:32 Urine Osmolality Sent. jg11 18:32 Urine Creatinine Sent. jg11 18:32 Osmolality, Serum Sent. jg11 19:00 Report given to EDWIN Monge. aa5 19:16 Door closed. Noise minimized. Lights dimmed. [facility] 19:16 Initial lab(s) drawn, by me, sent to lab. [facility] 19:36 Provided Education on: need for admission. rg5 19:36 Inserted saline lock: 20 gauge in right forearm, using aseptic technique. Blood rg5 collected. Patient admitted, IV remains in place. Administered Medications: 16:11 Drug: Ondansetron IVP 4 mg IVP once; over 2 minutes Route: IVP; Site: right antecubital;aa5 16:20 Follow up: Response: No adverse reaction aa5 19:57 Follow up: Response: No adverse reaction rg5 22:13 Drug: Acetaminophen PO 650 mg PO once Route: PO; rg5 22:56 Follow up: Response: No adverse reaction bm8 Medication: 18:16 VIS not applicable for this client. rs5 Outcome: 17:59 Decision to Hospitalize by Provider. ec2 21:43 Admitted to Med/surg accompanied by nurse, via stretcher, room 231, with oxygen, bm8 21:43 Condition: stable 21:43 Instructed on the need for admit, Demonstrated understanding of instructions, follow-up care, 22:57 Patient left the ED. bm8 Signatures: Dispatcher [employer] EDMS Stephanie Hall RN RN aa5 Karis Fragoso Ricky, RN RN rs5 Dimitry Samuel MD MD ec2 Paulina Belle [facility] Ino Nolasco jg11 Saleem Abreu, RN RN bm8 Charles Latham RN RN rg5 Corrections: (The following items were deleted from the chart) 15:45 15:25 Arm band placed on aa5 aa5 16:15 15:22 Chief complaint: EMS states: AMS. Pt lives in a Senior community apartment and aa5 walked to the office without wearing a shirt. Pt is normally A\T\O x 4 and was A\T\O x 0 upon scene arrival by EMS. Pt c/o slight numbness to right arm and feeling dizzy and nauseated. aa5 18:13 15:22 Neuro: Level of Consciousness is awake, alert, obeys commands, Oriented to aa5 person, place, situation, Financial Representative are equal bilaterally Moves all extremities. Speech is normal, Facial symmetry appears normal, Reports Pt reports slight numbness to right arm. . aa5 18:16 15:22 GI: Abdomen is non-distended, Bowel sounds present X 4 quads. Abd is soft and non aa5 tender X 4 quads. aa5 19:31 17:08 Reassessment: Pt had episode of tachycardia HR 120 bpm that lasted a few seconds, aa5 MD aware and repeat EKG completed by clinical laboratory technician. . 5
--- NOTE | 2024-03-16 18:00 | EDPHYS ---
Physician Documentation [facility] Name: Yancy Sweeney Age: 88 yrs Sex: Female : 1935 Arrival Date: 03/16/2024 Time: 15:20 Bed 6 Private MD: ED Physician Dimitry Samuel HPI: 03/16 15:26 This 88 yrs old Female presents to ER via Unassigned with complaints of AMS. ec2 15:26 WeightPatient arrives today for evaluation of altered mental status. Patient reportedly ec2 was walking around without her. No Reported Falls Injuries or Trauma. Some Bouts of Nausea and Vomiting. Patient is normally AAxO3 and has subsequently returned back to her baseline after this altered mental status. Patient reports some nausea and vomiting this morning. Denies any significant abdominal pain. Denies urinary complaints. Reports no cough and cold symptoms.. Historical: - Allergies: 15:25 Ciprofloxacin; cant take it with levoquin together; aa5 15:25 Levofloxacin; aa5 - Home Meds: 16:11 metformin 750 mg Oral Tablet, Extended Release 24 hr once [Active]; furosemide 40 mg aa5 Oral tablet once [Active]; clopidogrel 75 mg oral tablet once [Active]; potassium chloride 20 mEq Oral tablet, extended release once [Active]; metoprolol tartrate 25 mg Oral tablet 2 times per day [Active]; lisinopril 20 mg Oral tablet once [Active]; Eliquis 2.5 mg oral tablet 2 times per day [Active]; - PMHx: 15:25 diabetes mellitus; Hypercholesterolemia; Hypertensive disorder; Myocardial infarction; aa5 15:25 Atrial fibrillation; aa5 - PSHx: 15:25 Cholecystectomy; Stented artery; Total abdominal hysterectomy; aa5 - Immunization history:: Adult Immunizations unknown. - Infectious Disease History:: Denies. - Social history:: Smoking status: Patient/guardian denies using tobacco. ROS: 15:26 Constitutional: as per hpi ec2 Exam: 15:26 Constitutional: GEN: NAD Head: atraumatic Eyes: EOMI Ears: External ears are ec2 normal. CV: regular rate LUNGS: no respiratory distress ABD: non-distended, soft, nontender, no guarding, not rigid. SKIN: no evidence of rashes MSK: no evidence of trauma NEURO: moves all extremities equally, cranial nerves II through XII intact, strength intact of lower extremities, no focal neurologic deficit noted. Vital Signs: 15:22 BP 145 / 81; Pulse 68; Resp 18 S; Temp 97.3(TE); Pulse Ox 100% on R/A; aa5 16:47 BP 105 / 67; Pulse 70; Resp 16 S; Pulse Ox 97% on R/A; aa5 17:30 BP 143 / 60; Pulse 89; Resp 16 S; Pulse Ox 96% on R/A; aa5 18:15 BP 120 / 65; Pulse 70; Resp 17; Pulse Ox 99% on R/A; rs5 19:36 BP 115 / 52; Pulse 93; Resp 11; Temp 97.3; Pulse Ox 100% on R/A; Pain 2/10; rg5 21:43 BP 128 / 59; Pulse 71; Resp 20; Temp 97.3; Pulse Ox 99% on 2 lpm NC; Pain 2/10; bm8 19:36 Pain Scale: Adult rg5 21:43 Pain Scale: Rose-Anna (FACES) bm8 Alanna Coma Score: 19:36 Eye Response: spontaneous(4). Motor Response: obeys commands(6). Verbal Response: rg5 oriented(5). Total: 15. 21:43 Eye Response: spontaneous(4). Motor Response: obeys commands(6). Verbal Response: bm8 oriented(5). Total: 15. MDM: 15:25 Patient medically screened. ec2 15:27 Data reviewed: vital signs. ED course: Patient arrives today for evaluation of altered ec2 mental status. Examination remarkable for neuro intact individual is otherwise in no acute distress with a reassuring examination. Will obtain lab work, urine studies, CT imaging of the head as well as abdomen pelvis. Differential diagnosis include processes such as urinary tract infection, intracranial brain bleed, electrolyte disturbances, anemia, dehydration. 15:34 ED course: EKG independently reviewed and interpreted by me, shows normal sinus rhythm, ec2 rate of 68, no acute ST segment elevations, left bundle branch block noted.. 15:58 ED course: I talked to the daughter at the bedside, reported patient is been having ec2 bouts of confusion for the past several days, including confusion regarding her medication administration. Patient also complaining of itching to the bilateral hands and forearms. No reported rashes. Daughter reports patient mental status has significantly improved and she is answering questions more appropriately compared to earlier.. 16:13 ED course: CBC shows slight anemia with a hemoglobin of 10.3. Metabolic profile shows ec2 hyponatremia with a sodium of 125, renal dysfunction with creatinine of 1.45 and a GFR of 35. Lipase within normal ranges. Pending CT imaging and urine studies. . 17:11 ED course: On return from CT imaging patient noted to have tachycardia with rates in ec2 the 120s, were able to capture this on EKG. Repeat EKG obtained, independently reviewed and interpreted by me, shows sinus rhythm, rate of 79, no acute ST segment elevations, left bundle branch block.. 17:29 ED course: CT scan of the head independently reviewed and interpreted by me, shows ec2 ventriculomegaly, previous evidence of stroke. . 17:32 ED course: CT angio of the head and neck show significant stenosis, significant ec2 proximal right ICA stenosis noted, patient is not hemiparetic. CT abdomen pelvis shows chronic pancreatitis, constipation. . 17:58 ED course: Chest x-ray shows mild CHF. Will admit the patient for altered mental ec2 status, hyponatremia. . 18:21 ED course: Further discussion with patient and family, reports that she has never been ec2 formally diagnosed with a stroke and has never had any focal neurologic deficits. Updated them regarding the CT findings and the chronic changes. Will admit the patient for hyponatremia. Discussed case with hospitalist who agrees accept patient for admission.. 18:21 ED course: MDM: Differential diagnosis as documented above in ED course; All lab tests ec2 ordered and reviewed as documented above; Independent interpretation of tests: EKG as above; imaging as above; External records reviewed: Previous ED visit and associated lab work; History gathered from independent historian: Yes; daughter; Discuss inpatient hospitalization: Yes; I discussed the case with: Hospitalist . 03/16 15:25 Order name: CBC with Diff; Complete Time: 16:13 ec2 03/16 15:25 Order name: CMP; Complete Time: 16:13 ec2 03/16 15:25 Order name: Lipase; Complete Time: 16:13 ec2 03/16 15:25 Order name: Urinalysis w/ reflexes; Complete Time: 18:02 ec2 03/16 15:26 Order name: UDS; Complete Time: 18:09 ec2 03/16 18:02 Order name: Osmolality, Serum ec2 03/16 18:02 Order name: Urine Creatinine ec2 03/16 18:02 Order name: Urine Osmolality ec2 03/16 18:37 Order name: Urinalysis w/ reflexes EDMS 03/16 15:25 Order name: CT Head Brain wo Cont; Complete Time: 17:27 ec2 03/16 15:42 Order name: CT Head Angio; Complete Time: 17:27 ec2 03/16 15:42 Order name: CT Neck Angio; Complete Time: 17:27 ec2 03/16 16:53 Order name: Abdomen ; Complete Time: 17:27 EDMS 03/16 17:13 Order name: CXR XRAY; Complete Time: 17:57 ec2 03/16 15:25 Order name: IV Saline Lock; Complete Time: 15:42 ec2 03/16 15:25 Order name: Labs collected and sent; Complete Time: 15:42 ec2 03/16 15:25 Order name: Cath; Complete Time: 17:48 ec2 Administered Medications: 16:11 Drug: Ondansetron IVP 4 mg IVP once; over 2 minutes Route: IVP; Site: right antecubital;aa5 16:20 Follow up: Response: No adverse reaction aa5 19:57 Follow up: Response: No adverse reaction rg5 22:13 Drug: Acetaminophen PO 650 mg PO once Route: PO; rg5 22:56 Follow up: Response: No adverse reaction bm8 Disposition Summary: 03/16/24 17:59 Hospitalization Ordered Notes: Hospitalization Status: Inpatient Admission ec2 Provider: Lincoln Phan ec2 [facility]2 Condition: Stable ec2 Problem: new ec2 Symptoms: have improved ec2 Bed/Room Type: Standard ec2 Room Assignment: 231(03/16/24 21:10) rv1 Diagnosis - Hypo-osmolality and hyponatremia ec2 - Altered mental status, unspecified ec2 Forms: - Medication Reconciliation Form ec2 - SBAR form ec2 - Leadership Thank You Letter ec2 Signatures: Dispatcher [employer] Stephanie Paredes RN RN aa5 Marry Delatorre rv1 Dimitry Samuel MD MD ec2 Charles Latham RN RN rg5 Abreu, Saleem RN bm8 Corrections: (The following items were deleted from the chart) 15: 15:26 CBC+H.LAB.BRZ ordered. EDMS EDMS 15: 15:26 COMPREHENSIVE METABOLIC PANEL+C.LAB.BRZ ordered. EDMS EDMS 15: 15:26 LIPASE+C.LAB.BRZ ordered. EDMS EDMS 15: 15:26 Urinalysis+U.LAB.BRZ ordered. EDMS EDMS 15: 15:26 Abdomen Pelvis Wo Con+CT.RAD.BRZ ordered. EDMS EDMS 15: 15:26 Head Brain Wo Cont+CT.RAD.BRZ ordered. EDMS EDMS 15: 15:26 URINE DRUG SCREEN+UC.LAB.BRZ ordered. EDMS EDMS 18:02 18:02 OSMOLALITY, SERUM+SC.LAB.BRZ ordered. EDMS EDMS 18:02 18:02 URINE CREATININE+CHEM UR.LAB.BRZ ordered. EDMS EDMS 18:02 18:02 Osmolality, Urine ordered. EDMS EDMS 21:10 17:59 ec2 rv1
[2024-03-16 18:01] LABS: Specific Gravity 1.013 (1.005-1.030); Sqamous Epithelial None Seen /HPF (None Seen); Urine Bacteria None Seen /HPF (<20); Urine Bilirubin NEGATIVE (Negative); Urine Blood Negative (Negative); Urine Clarity Clear (Clear); Urine Color Colorless (Yellow); Urine Culture Reflex Order NOT NEEDED; Urine Glucose 3+ (Negative); Urine Ketones NEGATIVE (Negative); Urine Microscopic Reflex YN ORDER UMIC; Urine Mucus Slight /HPF (None Seen); Urine Nitrite NEGATIVE (Negative); Urine Protein 1+ (Negative); Urine RBC None Seen /HPF (None Seen); Urine Urobilinogen Normal (Normal); Urine WBC <5 /HPF (<5); Urine pH 6.5 (5.0-7.0)
[2024-03-16 18:05] LABS: Barbiturates NEGATIVE (NEGATIVE); Benzodiazepines NEGATIVE (NEGATIVE); Cocaine NEGATIVE (NEGATIVE); METHAMPHETAM NEGATIVE (NEGATIVE); Methadone NEGATIVE (NEGATIVE); Opiates NEGATIVE (NEGATIVE); Phencyclidine NEGATIVE (NEGATIVE); THC Cannibis NEGATIVE (NEGATIVE)
[2024-03-16] MEDS ORDERED: ONDANSETRON 4 MG/2 ML VIAL IV PRN (18:28)
[2024-03-16] MEDS ORDERED: ACETAMINOPHEN 325 MG TABLET PO PRN (18:28)
--- NOTE | 2024-03-16 18:28 | P.HP ---
Certification for Inpatient Patient admitted to: Inpatient With expected LOS: >2 Midnights Practitioner: I am a practitioner with admitting privileges, knowledge of patient current condition, hospital course, and medical plan of care. Services: Services provided to patient in accordance with Admission requirements found in Title 42 Section 412.3 of the Code of Federal Regulations Patient History Date of Service: 03/16/24 Reason for admission: SOB, Gen Vazquez History of Present Illness: 88 yrs old Female with past medical history of diabetes, hypertension, hyperlipidemia, CAD, atrial fibrillation who was recently been admitted to the hospital came back to ER with altered mental status. Patient is a poor historian hence most of the history is obtained from the chart review and also talking to the daughter at the bedside. Patient also has coughing for the last few days associated with some nausea and vomiting. Cough is productive with mucoid expectoration with some pinkish sputum as well. Denies any fever or chills. Has been having pain generalized weakness and fatigued. No chest pain or shortness of breath. Denies any dysuria. Patient has been recently been admitted to the hospital with A-fib with RVR and pulmonary edema. Patient was assessed in the ER and was found to have acute encephalopathy with hyponatremia to 125 and was admitted for further manage Allergies levofloxacin [From Levaquin] Adverse Reaction (Verified 01/31/23 08:20) "Confusion" Home medications list reviewed: Yes Home Medications: Insulin Detemir [Levemir] 28 units SQ DAILY 12/26/22 Lisinopril [Zestril] 20 mg PO DAILY 12/26/22 Clopidogrel Bisulfate [Plavix*] 75 mg PO DAILY 01/31/23 Metformin HCl [Glucophage*] 750 mg PO DAILY 01/31/23 Metoprolol Tartrate [Lopressor*] 25 mg PO BID 6AM 6PM #60 tab 02/21/24 Apixaban [Eliquis *] 2.5 mg PO BID 90 Days #90 tab 03/10/24 Furosemide [Lasix] 40 mg PO DAILY 60 Days #60 tab 03/10/24 Potassium Chloride 20 meq PO DAILY 30 Days #30 tab 03/10/24 - Past Medical/Surgical History Diabetic: Yes Past Medical History: Reviewed- Non-Contributory -: Insulin Dependent Type 2 Diabetes -: Hypertension -: Emphysema -: Coronary Artery Disease -: CT Past Surgical History: Reviewed- Non-Contributory -: Cholecystectomy -: Cardiac cath with stents -: Hysterectomy Psychosocial/ Personal History: Patient lives at home by herself. - Family History Family History: Reviewed- Non-Contributory - Family History Mother -: Diabetes, Stroke Father -: Heart disease, Cancer - Social History Smoking Status: Former smoker Alcohol use: No CD- Drugs: No Caffeine use: Yes Review of Systems 10-point ROS is otherwise unremarkable Physical Examination - Vital Signs Temperature: 97.2 F Blood Pressure: 136/72 Pulse: 90 Respirations: 18 Pulse Ox (%): 94 - Physical Exam General: Alert, Mild distress, Confused HEENT: Atraumatic, Normocephalic Neck: Supple Respiratory: Diminished, Crackles/rales Cardiovascular: Normal S1 S2, Irregular heart rate/rhythm Capillary refill: <2 Seconds Gastrointestinal: Soft and benign, W/out hepatosplenomegaly Musculoskeletal: No clubbing, Swelling Integumentary: No rashes, No tenderness/swelling Neurological: Other (Sleepy, arousable, moves all the limbs) Lymphatics: No axilla or inguinal lymphadenopathy - Studies Laboratory Data (last 24 hrs) 03/16/24 03/16/24 15:32 15:32 WBC 5.40 Hgb 10.3 L Hct 30.9 L Plt Count 381 Sodium 125 L Potassium 4.6 BUN 24 H Creatinine 1.45 H Glucose 311 H Total Bilirubin 0.2 AST < 10 L ALT 16 Alkaline Phosphatase 86 Lipase 64 Assessment and Plan - Problems (Diagnosis) (1) Acute metabolic encephalopathy Current Visit: Yes Status: Acute Plan: Acute metabolic encephalopathy Monitor neuro vital signs Will get a CT of the head Monitor closely under telemetry CT head showed no acute intracranial abnormality Diminished density in the right thyroid lobe related to previous infarct May need an MRI of the brain Hyponatremia Will monitor closely neuro vital signs Electrolytes monitor and replace accordingly Acute on chronic CHF possibly diastolic Monitor closely on telemetry Started on aggressive diuresis X-ray findings consistent with CHF Oxygen supplementation Will try to wean down oxygen requirement Continue home medications Titrate as needed Patient had a recent echocardiogram EF of 60 to 65% with grade 1 diastolic dysfunction and mild pulmonary hypertension Cardiology consult Atrial fibrillation Rate controlled at this time Continue home medications and titrate as needed Beta-imani as needed Carotid artery stenosis Carotid Doppler findings noted Cardiology consult May need vascular surgery consult and further workup as outpatient Hypertension Antihypertensives titrated Continue home medications and titrate as needed Hyperlipidemia Continue statin Diabetes Insulin sliding scale Accu-Chek before every meal and at bedtime Possible pneumonitis Started on IV antibiotics Monitor closely Will get a repeat x-ray in the a.m. CKD stage II Monitor renal parameters Electrolytes monitor and replace accordingly Anemia of chronic disease Monitor H&H closely No overt bleeding at this time GI/DVT prophylaxis Advanced directive full code Discharge Plan: Home Plan to discharge in: Greater than 2 days - Advance Directives Does patient have a Living Will: No Does patient have a Durable POA for Healthcare: No - Code Status/Comfort Care Code Status: Full Code Time Spent Managing Pts Care (In Minutes): 48
[2024-03-16] MEDS: ENOXAPARIN 40 MG/0.4 ML SQ SCH (20:00)
[2024-03-16] MEDS ORDERED: ACETAMINOPHEN 325 MG TABLET ONE (22:14)
[2024-03-16] MEDS: ACETAMINOPHEN 325 MG TABLET PO PRN (22:20)
[2024-03-16 23:50] VITALS: O2SAT 100; BMI 20.8
[2024-03-16] MEDS: CEFTRIAXONE 1,000 MG in NA CHLORIDE 0.9% 50 ML IVPB SCH (23:52)
[2024-03-16] MEDS: AZITHROMYCIN IV 500 MG in NA CHLORIDE 0.9% 250 ML IVPB SCH (23:53)
[2024-03-16] MEDS: FUROSEMIDE 20 MG/ 2ML VIAL IV SCH (23:55)
[2024-03-17] MEDS: ASPIRIN EC 81 MG TAB PO SCH (08:58)
--- NOTE | 2024-03-17 12:39 | P.PN ---
Subjective Date of Service: 03/17/24 Chief Complaint: SOB, Gen Wekness Patient is awake and alert. She denies any complaint. No nausea or vomiting. No reported limb weakness. Physical Examination - Vital Signs Temperature: 97.6 F Blood Pressure: 149/59 Pulse: 77 Respirations: 15 Pulse Ox (%): 93 - Studies Laboratory Data (last 24 hrs) 03/16/24 03/16/24 15:32 15:32 WBC 5.40 Hgb 10.3 L Hct 30.9 L Plt Count 381 Sodium 125 L Potassium 4.6 BUN 24 H Creatinine 1.45 H Glucose 311 H Total Bilirubin 0.2 AST < 10 L ALT 16 Alkaline Phosphatase 86 Lipase 64 Assessment And Plan - Plan Physical examination General: Alert and oriented x3, NAD, HEENT: Conjunctiva not pale, anicteric sclera Neck: Supple, no elevated JVD Heart: Heart sounds 1 and 2 normal, regular rhythm, normal rate, no pedal edema Lungs: Clear to auscultation bilaterally, adequate breath sounds bilaterally, no rhonchi or crackles. Abdomen: Soft, nondistended, nontender, normal bowel sounds. Extremities: No tenderness, no deformity Skin: Normal skin turgor, no rash, no nodules or ulcers. Neuro: No focal motor deficit. Normal speech. Psychiatry: Normal mood, no agitation. Assessment and plan Acute metabolic encephalopathy Hyponatremia CT head showed no acute intracranial abnormality Diminished density in the right parietal lobe related to previous infarct Will obtain MRI of the brain on Tuesday. IV NS for hyponatremia. Monitor renal function Start aspirin and Plavix. Folic acid statin. Acute on chronic diastolic heart failure Monitor closely on telemetry IV Lasix. Oxygen supplementation as needed Continue home medications Chronic atrial fibrillation Rate controlled at this time Continue home medications. Beta-imani as needed Resume home dose Eliquis. Carotid artery stenosis/intracranial artery stenosis Carotid Doppler findings noted. CTA head and neck findings noted Moderate stenosis mid right vertebral artery. Focal significant stenosis right M1 [id number], no occlusion. Patient may need carotid stent. Follow-up with vascular surgery as outpatient. According to the son patient has expressed wishes not to undergo any major procedure. Hypertension Continue home medications. Hyperlipidemia Continue statin Diabetes melitis type II Insulin sliding scale Accu-Chek before every meal and at bedtime Possible pneumonitis On IV antibiotics CKD stage II Patient is on Lasix Monitor renal function Anemia of chronic disease Stable CBC daily DVT prophylaxis: Eliquis Advanced directive full code
[2024-03-17] MEDS: METOPROLOL TAR 25 MG TAB PO SCH (17:10)
[2024-03-17] MEDS: MAGNES/ALUMIN/SIMET 30ML UCUP PO PRN (18:28)
[2024-03-17] MEDS: APIXABAN 2.5 MG TABLET PO SCH (20:04)
[2024-03-17] MEDS: ATORVASTATIN 40 MG TAB PO SCH (20:04)
[2024-03-18] MEDS ORDERED: D50W 25 GM/50 ML SYRINGE IV PRN (00:32)
[2024-03-18] MEDS ORDERED: GLUCAGON 1 MG/VIAL IM PRN (00:32)
[2024-03-18] MEDS ORDERED: D10W 125 ML IV PRN (00:35)
[2024-03-18] MEDS: INSULIN REGULAR (HUMAN) 100 UNIT/ML ONE (00:58)
[2024-03-18] MEDS: INSULIN REGULAR (HUMAN) 100 UNIT/ML SQ SCH (01:01)
[2024-03-18 04:00] LABS: Absolute Basophils 0.2 K/uL (0-0.5); Absolute Eosinophils 0.2 K/uL (0-0.5); Absolute Lymphocytes (CBC) 1.4 K/uL (0.7-4.9); Absolute Monocytes 0.6 K/uL (0.1-1.3); Absolute Neutrophil 3.4 K/uL (1.8-8.0); Basophils % 2.6 % (0-1.3); Eosinophils % 4.3 % (0-4.4); Hematocrit 32.1 % (36.0-45.0); Hemoglobin 10.9 g/dL (12.0-15.0); Lymphocytes % 24.8 % (15.3-44.8); MCH 30.1 pg (27.0-35.0); MCV 88.5 fL (80-100); MPV 7.7 fL (7.6-11.3); Monocytes % 10.1 % (3.3-12.3); Neutrophils % 58.2 % (41.7-73.7); Platelets 396 thou/uL (152-406); RBC Red Blood Cell Count 3.63 M/uL (3.86-4.86); Red Cell Distribution Width 13.9 % (12.1-15.2)
[2024-03-18 04:05] LABS: Anion Gap 8.4 mEq/L (5.0-15.0); Potassium 4.4 mEq/L (3.5-5.1)
[2024-03-18] MEDS: POTASSIUM CL SA 10 MEQ TAB PO SCH (08:28)
[2024-03-18] MEDS: lisinopriL 20 MG TAB PO SCH (08:28)
[2024-03-18] MEDS: CLOPIDOGREL 75 MG TABLET PO SCH (08:29)
[2024-03-18] MEDS: PANTOPRAZOLE 40MG TABLET PO SCH (08:29)
--- NOTE | 2024-03-18 11:46 | P.PN ---
Subjective Date of Service: 03/18/24 Chief Complaint: SOB, Gen Wekness Patient states she feels much better today. She is awake and alert She denies any complaint. No nausea or vomiting. Sodium level has significantly improved. Physical Examination - Vital Signs Temperature: 97.2 F Blood Pressure: 136/48 Pulse: 57 Respirations: 15 Pulse Ox (%): 94 Assessment And Plan - Plan Physical examination General: Alert and oriented x 2, NAD, Neck: Supple, no elevated JVD Heart: Heart sounds 1 and 2 normal, regular rhythm, normal rate, no pedal edema Lungs: Clear to auscultation bilaterally, adequate breath sounds bilaterally, no rhonchi or crackles. Abdomen: Soft, nondistended, nontender, normal bowel sounds. Extremities: No tenderness, no deformity Skin: Normal skin turgor, no rash, no nodules or ulcers. Neuro: No focal motor deficit. Normal speech. Psychiatry: Normal mood, no agitation. Assessment and plan Acute metabolic encephalopathy Hyponatremia CT head showed no acute intracranial abnormality Diminished density in the right parietal lobe related to previous infarct MRI of the brain to be done tomorrow. Hyponatremia improved with IV NS. Continue IV NS. Monitor renal function Aspirin and Plavi, folic acid and statins for possible acute CVA pending MRI of the brain results. Acute on chronic diastolic heart failure Monitor closely on telemetry Continue IV Lasix. Patient is stable on room air. Continue home medications Chronic atrial fibrillation Rate controlled at this time Continue home medications. Beta-imani as needed Continue home dose Eliquis. Carotid artery stenosis/intracranial artery stenosis Carotid Doppler findings noted. CTA head and neck findings noted Moderate stenosis mid right vertebral artery. Focal significant stenosis right M1 [id number], no occlusion. Patient may need carotid stent. Follow-up with vascular surgery as outpatient. According to the son patient has expressed wishes not to undergo any major proc edure. Hypertension Continue home medications. Hyperlipidemia Continue statin Diabetes melitis type II Insulin sliding scale Accu-Chek before every meal and at bedtime Possible pneumonitis On IV antibiotics CKD stage II Patient is on Lasix Renal function is mostly unchanged. Serum creatinine is probably at baseline. Anemia of chronic disease Stable CBC daily DVT prophylaxis: Eliquis Advanced directive full code
[2024-03-19 04:30] LABS: Anion Gap 8.2 mEq/L (5.0-15.0); Potassium 4.2 mEq/L (3.5-5.1)
[2024-03-19 04:37] LABS: Absolute Basophils 0.1 K/uL (0-0.5); Absolute Eosinophils 0.4 K/uL (0-0.5); Absolute Lymphocytes (CBC) 1.3 K/uL (0.7-4.9); Absolute Monocytes 0.5 K/uL (0.1-1.3); Absolute Neutrophil 4.2 K/uL (1.8-8.0); Basophils % 1.9 % (0-1.3); Eosinophils % 5.5 % (0-4.4); Hematocrit 31.2 % (36.0-45.0); Hemoglobin 10.7 g/dL (12.0-15.0); Lymphocytes % 19.8 % (15.3-44.8); MCH 30.6 pg (27.0-35.0); MCHC 34.4 g/dL (32.0-36.0); MPV 7.3 fL (7.6-11.3); Monocytes % 7.4 % (3.3-12.3); Neutrophils % 65.4 % (41.7-73.7); Platelets 377 thou/uL (152-406); Red Cell Distribution Width 13.6 % (12.1-15.2)
--- NOTE | 2024-03-19 11:22 | RAD REPORT ---
EXAM DESCRIPTION: MRI - Brain Wo Cont - 03/19/2024 11:01 am CLINICAL HISTORY: AMS, parietal lobe hypodensity Headache, CVA symptomology COMPARISON: Head Brain Wo Cont dated 03/16/2024 TECHNIQUE: Multi-sequence, multiplanar MR imaging of the brain was performed without contrast. FINDINGS: No intracranial hemorrhage, hydrocephalus or extra-axial fluid collections.Mild confluent T2/FLAIR hyperintensity in the periventricular and deep white matter is present compatible with chron ic microvascular ischemic changes. No edema or shift of midline structures. No findings to suspect br ain mass.Gliosis is seen in the right parietal lobe compatible with old infarct. DWI is negative for acute CVA. Midline structures are normally formed. Mastoid air cells and paranasal sinuses are clear. IMPRESSION: No acute CVA is seen. No acute finding seen otherwise. Gliosis in the right parietal lobe is likely related to previous CVA.
[2024-03-19 11:53] VITALS: BP 148/63; TEMP 97.7
--- NOTE | 2024-03-19 13:54 | P.DS ---
Admission Date: 03/16/24 Discharge Date: 03/19/24 Disposition: DC HOME/HOME HEALTH CARE Discharge Condition: FAIR Reason for Admission: Gen Taylor GAN Brief History of Present Illness: 88 yrs old Female with past medical history of diabetes, hypertension, hyperlipidemia, CAD, atrial fibrillation who was recently been admitted to the hospital came back to ER with altered mental status. Patient is a poor historian hence most of the history was obtained from the chart review and also talking to the daughter at the bedside. Patient reported to have been coughing with associated nausea and vomiting. Other symptoms reported included generalized weakness and fatigued. No reported chest pain or shortness of breath. Denies any dysuria. Patient was recently admitted to the hospital for A-fib with RVR and pulmonary edema. Patient was assessed in the ER and was found to have acute encephalopathy with hyponatremia to 125 and was admitted for further management. 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 Hyponatremia improved with IV NS. Mental status is improved to baseline. Patient is ambulating independently. She is eating well, has stable vitals. Patient is deemed stable for discharge.. Acute on chronic diastolic heart failure Patient was treated with IV Lasix She is transition to oral Lasix on discharge She has been stable on room air. Chronic atrial fibrillation Rate controlled on oral metoprolol Continued home dose Eliquis. Carotid artery stenosis/intracranial artery stenosis Carotid Doppler findings noted. CTA head and neck findings noted Moderate stenosis mid right vertebral artery. Focal significant stenosis right M1 [id number], no occlusion. 99% left ICA stenosis, 70 to 80% right ICA stenosis Patient with multiple carotid artery disease and intracranial vessel disease. According to the son patient has expressed wishes not to undergo any major procedure. Case discussed with neurology recommend medical management given high risk of complications at this time with vascular intervention. Patient discharged with Plavix, Eliquis and statins.. Case discussed with vascular surgeon Dr. Bello who plans to follow-up with patient's in the office for evaluation for angiogram and further intervention as needed. Hypertension Continued home medications. Patient and family informed patient blood pressure need to be a little bit on the high side, say systolic around 140 to improve perfusion to the brain. Hyperlipidemia Continued statin Diabetes melitis type II Managed with insulin sliding scale Metformin resumed on discharge. Pneumonitis Doubt patient has pneumonitis. She was treated with IV antibiotics briefly. CKD stage II Patient has been on Lasix Renal function is mostly unchanged. Serum creatinine is probably at baseline. Anemia of chronic disease Stable Vital Signs/Physical Exam: Temp Pulse Resp BP Pulse Ox 97.7 F 60 16 148/63 H 96 03/19/24 11:50 03/19/24 11:50 03/19/24 11:50 03/19/24 11:50 03/19/24 11:50 General: Alert, In no apparent distress, Oriented x3 HEENT: Mucous membr. moist/pink Neck: Supple, JVD not distended Respiratory: Clear to auscultation bilaterally, Normal air movement Cardiovascular: No edema, Regular rate/rhythm, Normal S1 S2 Gastrointestinal: Normal bowel sounds, Soft and benign, Non-distended Musculoskeletal: No swelling Integumentary: No rashes, No cyanosis Neurological: Normal speech, Normal strength at 5/5 x4 extr, Cranial nerves 3-12 intact Lymphatics: No axilla or inguinal lymphadenopathy Laboratory Data at Discharge: WBC 6.40 thou/uL (4.3-10.9) 03/19/24 03:37 Hgb 10.7 g/dL (12.0-15.0) L 03/19/24 03:37 Hct 31.2 % (36.0-45.0) L 03/19/24 03:37 Plt Count 377 thou/uL (152-406) 03/19/24 03:37 Sodium 131 mEq/L (136-145) L 03/19/24 03:37 Potassium 4.2 mEq/L (3.5-5.1) 03/19/24 03:37 BUN 25 mg/dL (7-18) H 03/19/24 03:37 Creatinine 1.34 mg/dL (0.55-1.02) H 03/19/24 03:37 Glucose 113 mg/dL (74-106) H 03/19/24 03:37 Total Bilirubin 0.2 mg/dL (0.2-1.0) 03/16/24 15:32 AST < 10 U/L (15-37) L 03/16/24 15:32 ALT 16 U/L (13-56) 03/16/24 15:32 Alkaline Phosphatase 86 U/L (45-117) 03/16/24 15:32 Lipase 64 U/L (13-75) 03/16/24 15:32 Home Medications: Insulin Detemir [Levemir] 28 units SQ DAILY 12/26/22 Lisinopril [Zestril] 20 mg PO DAILY 12/26/22 Clopidogrel Bisulfate [Plavix*] 75 mg PO DAILY 01/31/23 Metformin HCl [Glucophage*] 750 mg PO DAILY 01/31/23 Metoprolol Tartrate [Lopressor*] 25 mg PO BID 6AM 6PM #60 tab 02/21/24 Apixaban [Eliquis *] 2.5 mg PO BID 90 Days #90 tab 03/10/24 Furosemide [Lasix*] 40 mg PO DAILY 60 Days #60 tab 03/10/24 Potassium Chloride 20 meq PO DAILY 30 Days #30 tab 03/10/24 Atorvastatin Calcium [Lipitor] 40 mg PO BEDTIME #30 tab 03/19/24 Pantoprazole [Protonix Tab*] 40 mg PO BIDAC #60 tab 03/19/24 New Medications: Atorvastatin Calcium [Lipitor] 40 mg PO BEDTIME #30 tab Pantoprazole [Protonix Tab*] 40 mg PO BIDAC #60 tab Diet: AHA Activity: Fall precautions Followup: Wilfred Ramos MD [Primary Care Provider] - 1-2 Weeks Time spent managing pt's care (in minutes): 38
--- NOTE | 2024-03-19 15:01 | EKG ---
Test Date: 2024-03-16 Test Time: 17:09:40 Vehicle Calibration Engineer: ROBIN MEASUREMENT RESULTS: Intervals: Rate: 79 LA: 174 QRSD: 136 QT: 374 QTc: 428 [place]: P: 38 LA: 174 QRS: -31 T: 131 INTERPRETIVE STATEMENTS: Normal sinus rhythm Left axis deviation Left bundle branch block Abnormal ECG Compared to ECG 03/16/2024 15:33:44 Left-axis deviation now present Electronically Signed On 03-19-24 14:53:34 CDT by Jason Coates
--- NOTE | 2024-03-19 15:01 | EKG ---
Test Date: 2024-03-16 Test Time: 15:33:44 Transfer Controller: BORIS MEASUREMENT RESULTS: Intervals: Rate: 68 SC: 178 QRSD: 144 QT: 424 QTc: 450 [place]: P: 86 SC: 178 QRS: -26 T: 113 INTERPRETIVE STATEMENTS: Normal sinus rhythm Left bundle branch block Abnormal ECG Compared to ECG 03/07/2024 23:19:26 No significant changes Electronically Signed On 03-19-24 14:53:45 CDT by Jason Coates
== END 2024-03-19 14:22 | disposition home health service (06) | DRG 70 ==
LOC: ER 15:20 → ERHOLD 18:28 → 2ND 22:04
PROVIDERS: ADMIT Family Medicine; ATTEND Internal Medicine
DX: G93.41 Metabolic encephalopathy (principal); I50.33 Acute on chronic diastolic (congestive) heart failure; E87.1 Hypo-osmolality and hyponatremia; I13.0 Hypertensive heart and chronic kidney disease with heart failure and stage 1 through stage 4 chronic kidney disease, or unspecified chronic kidney disease; I48.20 Chronic atrial fibrillation, unspecified; N18.2 Chronic kidney disease, stage 2 (mild); E11.22 Type 2 diabetes mellitus with diabetic chronic kidney disease; E11.40 Type 2 diabetes mellitus with diabetic neuropathy, unspecified; D63.1 Anemia in chronic kidney disease; J98.4 Other disorders of lung; I44.7 Left bundle-branch block, unspecified; E78.00 Pure hypercholesterolemia, unspecified; I27.20 Pulmonary hypertension, unspecified; I65.29 Occlusion and stenosis of unspecified carotid artery; I25.10 Atherosclerotic heart disease of native coronary artery without angina pectoris; I25.2 Old myocardial infarction; Z60.2 Problems related to living alone; Z79.4 Long term (current) use of insulin; Z95.1 Presence of aortocoronary bypass graft; Z88.1 Allergy status to other antibiotic agents; Z79.01 Long term (current) use of anticoagulants; Z79.84 Long term (current) use of oral hypoglycemic drugs; Z79.02 Long term (current) use of antithrombotics/antiplatelets; Z90.49 Acquired absence of other specified parts of digestive tract; Z86.73 Personal history of transient ischemic attack (TIA), and cerebral infarction without residual deficits; Z79.899 Other long term (current) drug therapy; Z90.710 Acquired absence of both cervix and uterus
CPT/HCPCS: 36415; 51702; 70450; 70496; 70498; 70551; 71045; 74177; 80048; 80053; 80307; 81001; 82570; 82947; 83690; 83930; 83935; 85025; 93005; 96374; 97116; 97161; 99285; J0696; J1650; J1940; J2405; J7050; Q9967

== ENCOUNTER 2024-04-05 02:02 | Emergency (ER) | payer OTHER ==
--- OUTSIDE RECORDS SUMMARY | 2024-04-05 02:09 | XMS REPORT | Continuity of Care Document ---
Author Name Unknown Address [address] [facility] [address] [place] [address] [facility] thconnect Address [address] [facility]. [address] [place] [address] Care Team Providers Care Shank Pinner Name Role Phone Wilfred Ramos MD Primary Care Physician [phone] JAI PEDRAZA Attending Clinician WILFRED [place] Attending Clinician Unavailable ADELSO FISH Attending Clinician Unavailable Wilfred Ramos MD Attending Clinician [phone] Rosio Williamson MD Attending Clinician [phone] ROSIO WILLIAMSON Attending Clinician Omer Lujan MD Attending Clinician [phone] STEVEN GARNICA Attending Clinician Unavailable ANJU HANNA Attending Clinician Unavailable Anju Jackson Attending Clinician [phone] Vanessa Colvin RN Attending Clinician Unavailab rodgers Doctor Unassigned, [place] Attending Clinician U camron [place], Cardiology - Clear Attending Clinician Cara OMER Hurley Attending Clinician Unavailable Lab, Ang - Db Attending Clinician Unavailable LEEROY ALBARRAN Attending Clinician UnavailLeeroy Kaye MD Attending Clinician [phone] MARCIA MONTALVO Attending Clinician Unavailable Jamie Guzmán MD Attending Clinician [phone] JAMIE GUZMÁN Attending Clinician UnavailBebo CAMPOSPMarcia Attending Clinician [phone] Ramirez [facility] Attending [facility] [phone] PERLA VILLARREAL Attending Clinician Unavail able PERLA VILLARREAL Attending Clinician Unavail able Jai Pedraza MD Attending Clinician + [phone] Only, Adc Test Attending Clinician Unavailable Dwight WALLACE Damien Trinidadan Attending Clinician [phone] Cecille RN, [place]ese[place] Attending Clinician Unavailable Aidee Nunez Attending Clinician [phone] Marguerite MONROE, Jose Attending Clinician [phone] Jewell PINEDA, Heaven Conner Attending Clinician Cara vailable Lab, Adc Fam Pob I Attending Clinician Unavailab ana maria VILLAREAL, Roberto Attending Clinician [phone] ROBERTO HURST Attending Clinician Unavailable Pob, Adc Lab Main Attending Clinician Unavailabl JAI Willingham Admitting Clinician Jai Davies MD Admitting Clinician + [phone] Jose Everett MD Admitting Clinician [phone] Payers Payer Name Policy Type Policy Number Effective Date Expirati on Date Source [employer] [id number] 2014 00:00:00 Problems Condition Name Condition Details Condition Category Status Onset Date Resolution Date Last Treatment Date Treating Clinician Comments Source 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 Disease Active 03-15 00:00: [address] [facility] ST elevation myocardial infarction (STEMI), unspecifie d artery ST elevation myocardial infarction (STEMI), unspecifie d artery Disease Active 03-15 00:00: 00 [facility] Colitis, acute Colitis, acute Disease Active 10-24 00:00: 00 [facility] Essential hypertensi on Essential hypertensi on Disease Active 16 00:00: 00 [facility] Type 2 diabetes mellitus without complicati on, with long-term current use of insulin Type 2 diabetes mellitus without complicati on, with long-term current use of insulin Disease Active 16 00:00: 00 [facility] UTI (urinary tract infection) UTI (urinary tract infection) Disease Active 03-20 00:00: 00 [facility] Acute bilateral low back pain with sciatica Acute bilateral low back pain with sciatica Disease Active 03-20 00:00: 00 [facility] Allergies, Adverse Reactions, Alerts Allergy Name Allergy Type Status Severity Reaction(s) Onset Date Inactive Date Treating Clinician Comments Source NO KNOWN ALLERGIE S Drug Class Active [facility] Social History Social Habit Start Date Stop Date Quantity Comments Source [facility] Alcoholic beverage intake 2024-04-03 00:00:00 2024-04-03 00:00:00 Current non-drinker of alcohol (finding) [facility] Alcohol intake 2024-01-12 00:00:00 2024-01-12 00:00:00 Current non-drinker of alcohol (finding) [facility] History of Social function 2023-09-20 00:00:00 2023-09-20 00:00:00 [facility] Exposure to SARS-CoV-2 (event) 2023-02-14 00:00:00 2023-02-24 13:40:00 Not sure [facility] Tobacco use and exposure 2022-09-22 00:00:00 2022-09-22 00:00:00 Smokeless tobacco non-user [facility] Sex assigned at 1935 00:00:00 1935 00:00:00 [facility] Smoking Status Start Date Stop Date Source Never smoked tobacco [facility] Medications Ordered Medication Name Filled Medication Name Start Date Stop Date Current Medication? Ordering Clinician Indication Dosage Frequency Signature (SIG) Comments Components Source Blood-Gluco se Meter,Steve armenta (DEXCOM G6 FURNACE LOADER) Mis 04-02 00:00: 00 Yes [id number] Use as directed [facility] Blood-Gluco se Transmitter (DEXCOM G6 TRANSMITTER ) Sandy 04-02 00:00: 00 Yes [id number] Use as directed [facility] HYDROcodone -acetaminop hen 7.5-325 mg per tablet 03-19 00:00: 00 Yes [id number] TAKE ONE TABLET BY MOUTH EVERY SIX HOURS NEEDED FOR PAIN INDICATION S: CHRONIC PAIN Indication s: chronic pain [facility] atorvastati n 40 mg tablet 03-19 00:00: 00 Yes 40mg Take 1 tablet by mouth at bedtime. [facility] pantoprazol e 40 mg EC tablet 03-19 00:00: 00 04-03 00:00 :00 No 40mg Take 1 tablet by mouth in the morning. [facility] insulin detemir U-100 100 unit/mL injection 03-15 00:00: 00 Yes [id number] Take 20 units in the morning and 12 units at bedtime E11.65 [facility] KCL 20 mEq tablet 03-12 00:00: 00 Yes 20meq Take 1 tablet by mouth in the morning. [facility] ELIQUIS 2.5 mg tablet 03-12 00:00: 00 Yes 2.5mg Take 1 tablet by mouth in the morning and 1 tablet in the evening. [facility] furosemide 40 mg tablet 03-12 00:00: 00 04-03 00:00 :00 No 40mg Take 1 tablet by mouth in the morning. [facility] metoprolol tartrate 25 mg tablet - 00:00: 00 04-03 00:00 :00 No 25mg Take 1 tablet by mouth in the morning and 1 tablet in the evening. [facility] HYDROcodone -acetaminop hen 7.5-325 mg per tablet 02-12 00:00: 00 03-19 00:00 :00 No 2745 TAKE ONE TABLET BY MOUTH EVERY SIX HOURS NEEDED FOR PAIN INDICATION S: CHRONIC PAIN Indication s: chronic pain [facility] LISINOPRIL 20 mg tablet -07 00:00: 00 04-03 00:00 :00 No [id number] 20mg TAKE 1 TABLET BY MOUTH IN THE MORNING. [facility] HYDROcodone -acetaminop hen 7.5-325 mg per tablet 00:00: 00 02-12 00:00 :00 No [id number] TAKE 1 TABLET BY MOUTH EVERY SIX HOURS NEEDED FOR PAIN Indication s: chronic pain [facility] metroNIDAZO LE (FLAGYL) 500 mg tablet 11-14 00:00: 00 04-03 00:00 :00 No [id number] 500mg Take 1 tablet by mouth every 8 (eight) hours. [facility] ciprofloxac in HCl (CIPRO) 500 mg tablet 11-14 00:00: 04-03 00:00 :00 No [id number] 500mg Take 1 tablet by mouth every 12 (twelve) hours. [facility] iopamidol (ISOVUE 370-500 mL) injection 80 mL 10-05 23:00: 10-05 22:02 :00 No [id number] 80mL 80 mL, Intravenou s, ONCE, 1 dose, On Tue10/05/23 at 1700, Routine [facility] ciprofloxac in HCl (CIPRO) 500 mg tablet 10-05 00:00: 00 04-02 00:00 :00 No [id number] 500mg Take 1 tablet by mouth every 12 (twelve) hours. [facility] metroNIDAZO LE (FLAGYL) 500 mg tablet 10-05 00:00: 00 04-02 00:00 :00 No [id number] 500mg Take 1 tablet by mouth every 12 (twelve) hours. [facility] nitroglycer in 0.3 mg sublingual tablet 2022-10 00:00: [id number] 1 tablet under the tongue every 5 (five) minutes as needed for Chest pain. [facility] hydroCHLORO thiazide 12.5 mg capsule 2022-10 00:00: 00 Yes [id number] 12.5mg Take 1 capsule by mouth in the morning. [facility] escitalopra m oxalate 5 mg tablet 2022-10 2 00:00: 00 04-03 00:00 :00 No [id number] TAKE ONE TABLET BY MOUTH IN THE MORNING. [facility] lisinopriL 20 mg tablet 2022-10 2- 00:00: 00 12-07 00:00 :00 No [id number] 20mg Take 1 tablet by mouth in the morning. [facility] HYDROcodone -acetaminop hen 7.5-325 mg per tablet 2022-10 00:00: 00 00:00 :00 No 2745 TAKE 1 TABLET BY MOUTH EVERY SIX HOURS NEEDED FOR PAIN Indication s: chronic pain [facility] metformin ER 750 mg 24 hr tablet 2022-10 00:00: 00 Yes [id number] 750mg Take 1 tablet by mouth daily with breakfast. [facility] insulin detemir U-100 100 unit/mL injection 2022-10 00:00: 00 03-15 00:00 :00 No [id number] Take 20 units in the morning and 12 units at bedtime E11.65 [facility] ESCITALOPRA M OXALATE 5 mg tablet 2022-10 00:00: 00 09-21 00:00 :00 No [id number] TAKE ONE TABLET BY MOUTH IN THE MORNING. [facility] ESCITALOPRA M OXALATE 5 mg tablet 2022-10-14 00:00: 00 Yes [id number] 5mg TAKE 1 TABLET BY MOUTH IN THE MORNING. [facility] ESCITALOPRA M OXALATE 5 mg tablet 2022-10 0- 00:00: 00 Yes [id number] 5mg TAKE 1 TABLET BY MOUTH IN THE MORNING. [facility] LISINOPRIL 20 mg tablet 2022-10 0-12 00:00: 00 09-21 00:00 :00 No [id number] 20mg TAKE 1 TABLET BY MOUTH DAILY [facility] HYDROCODONE -ACETAMINOP HEN 7.5-325 mg per tablet 2022-10 0-12 00:00: 00 09-21 00:00 :00 No [id number] TAKE 1 TABLET BY MOUTH EVERY SIX HOURS NEEDED FOR PAIN [facility] HYDROCODONE -ACETAMINOP HEN 7.5-325 mg per tablet 06-20 00:00: 00 Yes [id number] TAKE 1 TABLET BY MOUTH EVERY SIX HOURS NEEDED FOR PAIN [facility] Insulin [place], Disposable, (PEN NEEDLE) 32 gauge x 5/32" Ndle 05-17 00:00: 00 Yes [id number] Use as directed daily E11.65 [facility] Lancets (ACCU-CHEK SOFTCLIX LANCETS) [place] 05-17 00:00: 00 Yes Use as directed to check blood sugars twice daily E11.65 [facility] Blood-Gluco se Meter (ACCU-CHEK GUIDE GLUCOSE METER) [place] 05-17 00:00: 00 Yes Use as directed to check blood sugars twice daily E11.65 [facility] blood sugar diagnostic (ACCU-CHEK GUIDE TEST STRIPS) strip 05-17 00:00: 00 Yes Use as directed to check blood sugars twice daily E11.65 [facility] metformin ER 750 mg 24 hr tablet 05-17 00:00: 00 09-20 00:00 :00 No [id number] 750mg Take 1 tablet by mouth daily with breakfast. [facility] Insulin Detemir (LEVEMIR FLEXPEN) 100 unit/mL (3 mL) injection 05-17 00:00: 00 09-20 00:00 :00 No [id number] 28U inject 28 Units under the skin every morning. E11.65 [facility] ONETOUCH VERIO TEST STRIPS strip 05-17 00:00: 00 05-17 00:00 :00 No [id number] Use as directed BID E11.65 [facility] ONETOUCH VERIO REFLECT METER Misc 05-17 00:00: 00 05-17 00:00 :00 No [id number] Use as directed BID E11.65 [facility] HYDROcodone -acetaminop hen 7.5-325 mg per tablet 05-16 00:00: 00 06-16 04:59 :00 No 2745 1{tbl} Take 1 tablet by mouth every 6 (six) hours as needed for Pain for up to 30 days. Indication s: chronic pain [facility] ciprofloxac in HCl (CIPRO) 500 mg tablet 05-05 00:00: 00 11-14 00:00 :00 No [id number] 500mg Take 1 tablet by mouth every 12 (twelve) hours. [facility] insulin detemir U-100 (LEVEMIR U-100 INSULIN) 100 unit/mL injection 05-05 00:00: 00 05-17 00:00 :00 No [id number] 34U inject 34 Units under the skin at bedtime. [facility] insulin detemir U-100 (LEVEMIR U-100 INSULIN) 100 unit/mL injection 04-20 00:00: 00 05-05 00:00 :00 No [id number] 34U inject 34 Units under the skin at bedtime. [facility] ciprofloxac in HCl (CIPRO) 500 mg tablet 04-20 00:00: 00 05-05 00:00 :00 No [id number] 500mg Take 1 tablet by mouth every 12 (twelve) hours. [facility] ESCITALOPRA M OXALATE 5 mg tablet 04-12 00:00: 00 07-14 00:00 :00 No [id number] 5mg TAKE 1 TABLET BY MOUTH IN THE MORNING. [facility] LISINOPRIL 20 mg tablet 04-12 00:00: 00 07-14 00:00 :00 No [id number] 20mg TAKE 1 TABLET BY MOUTH DAILY. [facility] insulin detemir U-100 (LEVEMIR U-100 INSULIN) 100 unit/mL injection 03-10 00:00: 00 04-20 00:00 :00 No [id number] 34U inject 34 Units under the skin at bedtime. [facility] HYDROcodone -ibuprofen 7.5-200 mg per tablet 6-05 00:00: 09-21 00:00 :00 No 2745 TAKE 1 TABLET BY MOUTH EVERY SIX HOURS NEEDED FOR PAIN Indication s: chronic pain [facility] nitroglycer in 0.3 mg sublingual tablet 02-24 00:00: 00 09-21 00:00 :[id number] 1 tablet under the tongue every 5 (five) minutes as needed for Chest pain. [facility] HYDROcodone -ibuprofen 7.5-200 mg per tablet 08 00:00: 00 03-07 00:00 :00 No [id number] TAKE 1 TABLET BY MOUTH EVERY SIX HOURS NEEDED FOR PAIN Indication s: chronic pain [facility] triamcinolo ne acetonide (KENALOG) injection 40 mg 5-05 16:30: 00 12-24 15:18 :00 No [id number] 40mg [facility] ondansetron 4 mg tablet 4-05 00:00: 00 04-03 00:00 :00 No [id number] 4mg Take 1 tablet by mouth every 4 (four) hours as needed for Nausea and Vomiting (N/V). [facility] triamcinolo ne acetonide (KENALOG) injection 40 mg -24 14:45: 00 12-25 02:44 :00 No [id number] 40mg [facility] HYDROcodone -ibuprofen 7.5-200 mg per tablet -17 00:00: 00 02-07 00:00 :00 No 2745 TAKE 1 TABLET BY MOUTH EVERY SIX HOURS NEEDED FOR PAIN Indication s: chronic pain [facility] diclofenac 50 mg EC tablet 3-16 00:00: 00 04-03 00:00 :00 No [id number] 50mg Take 1 tablet by mouth in the morning and 1 tablet in the evening. Take with meals. [facility] ALPRAZolam 0.25 mg tablet 3-16 00:00: 00 04-03 00:00 :00 No [id number] TAKE 1/2 TABLET BY MOUTH THREE TIMES DAILY NEEDED FOR ANXIETY [facility] HYDROcodone -acetaminop hen 5-325 mg tablet 3-16 00:00: 00 09-21 00:00 :00 No 2745 TAKE 1 TABLET BY MOUTH EVERY FOUR HOURS NEEDED FOR PAIN Indication s: chronic pain [facility] methocarbam oL 500 mg tablet 11-25 00:00: 00 04-03 00:00 :00 No [id number] 109 500mg Take 1 tablet by mouth 3 (three) times daily as needed for Pain (scale 4-6). [facility] hydroCHLORO thiazide 12.5 mg capsule 11-25 00:00: 00 09-21 00:00 :00 No [id number] 12.5mg Take 1 capsule by mouth in the morning. [facility] insulin detemir U-100 (LEVEMIR U-100 INSULIN) 100 unit/mL injection 11-25 00:00: 00 03-10 00:00 :00 No [id number] 28U inject 28 Units under the skin at bedtime. [facility] HYDROcodone -ibuprofen 7.5-200 mg per tablet 11-25 00:00: 00 12-17 00:00 :00 No 2745 TAKE 1 TABLET BY MOUTH EVERY SIX HOURS NEEDED FOR PAIN Indication s: chronic pain [facility] insulin detemir U-100 (LEVEMIR U-100 INSULIN) 100 unit/mL injection - 00:00: 00 11-25 00:00 :00 No [id number] 28U inject 28 Units under the skin at bedtime. [facility] HYDROcodone -ibuprofen 7.5-200 mg per tablet - 00:00: 00 11-25 00:00 :00 No 2745 TAKE 1 TABLET BY MOUTH EVERY SIX HOURS NEEDED FOR PAIN Indication s: chronic pain [facility] HYDROcodone -ibuprofen 7.5-200 mg per tablet 2021-10 00:00: 00 10-25 00:00 :00 No 2745 TAKE 1 TABLET BY MOUTH EVERY SIX HOURS NEEDED FOR PAIN Indication s: chronic pain [facility] escitalopra m oxalate (LEXAPRO) 5 mg tablet 2021-10 00:00: 00 04-12 00:00 :00 No [id number] 5mg Take 1 tablet by mouth in the morning. [facility] ALPRAZolam 0.25 mg tablet 2021-10 00:00: 00 12-16 00:00 :00 No [id number] TAKE 1/2 TABLET BY MOUTH THREE TIMES DAILY NEEDED FOR ANXIETY [facility] methocarbam oL 500 mg tablet 2021-10 00:00: 00 11-25 00:00 :00 No [id number] 109 500mg Take 1 tablet by mouth 3 (three) times daily as needed for Pain (scale 4-6). [facility] HYDROcodone -ibuprofen 7.5-200 mg per tablet 2021-10 00:00: 00 09-29 00:00 :00 No 2745 TAKE 1 TABLET BY MOUTH EVERY SIX HOURS NEEDED FOR PAIN Indication s: chronic pain [facility] HYDROcodone -ibuprofen 7.5-200 mg per tablet 2021-10 0-05 00:00: 00 Yes 2745 TAKE 1 TABLET BY MOUTH EVERY SIX HOURS NEEDED FOR PAIN Indication s: chronic pain [facility] losartan 50 mg tablet 2021-10 0-04 00:00: 00 09-21 00:00 :00 No [facility] gabapentin 300 mg capsule 9-14 00:00: 00 04-03 00:00 :00 No 300mg Take 1 capsule by mouth every evening. [facility] metformin ER 750 mg 24 hr tablet 06-04 00:00: 00 05-17 00:00 :00 No [id number] 750mg Take 1 tablet by mouth in the morning and 1 tablet in the evening. Take with meals. [facility] insulin detemir U-100 (LEVEMIR U-100 INSULIN) 100 unit/mL injection 9-02 00:00: 00 10-25 00:00 :00 No [id number] 28U inject 28 Units under the skin at bedtime. [facility] HYDROcodone -ibuprofen 7.5-200 mg per tablet 8-15 00:00: 00 07-07 00:00 :00 No 2745 TAKE 1 TABLET BY MOUTH EVERY SIX HOURS NEEDED FOR PAIN Indication s: chronic pain [facility] HYDROCHLORO THIAZIDE 12.5 mg capsule 5-31 00:00: 00 11-25 00:00 :00 No [id number] 12.5mg TAKE 1 CAPSULE BY MOUTH DAILY [facility] cefUROXime 500 mg tablet 5-26 00:00: 00 04-20 00:00 :00 No [id number] 500mg Take 1 tablet by mouth 2 (two) times daily. [facility] lisinopriL 20 mg tablet 5-26 00:00: 00 04-12 00:00 :00 No [id number] 20mg Take 1 tablet by mouth daily. [facility] insulin detemir U-100 (LEVEMIR U-100 INSULIN) 100 unit/mL injection -26 00:00: 00 06-04 00:00 :00 No [id number] 24U inject 24 Units under the skin at bedtime. [facility] metformin ER 750 mg 24 hr tablet -26 00:00: 00 06-04 00:00 :00 No [id number] 750mg Take 1 tablet by mouth 2 (two) times daily with meals. [facility] HYDROCODONE -ACETAMINOP HEN 5-325 mg tablet 2020-10 2-08 00:00: 00 12-16 00:00 :00 No [id number] TAKE 1 TABLET BY MOUTH EVERY FOUR HOURS NEEDED FOR PAIN [facility] ALPRAZOLAM 0.25 mg tablet 2020-10- 00:00: 09-22 00:00 :00 No [id number] TAKE 1/2 TABLET BY MOUTH THREE TIMES DAILY NEEDED FOR ANXIETY [facility] mirtazapine 7.5 mg tablet 2-24 00:00: 00 09-22 00:00 :00 No [id number] 7.5mg Take 1 tablet by mouth at bedtime. [facility] LORazepam 0.5 mg tablet -20 00:00: 00 09-22 00:00 :00 No [id number] .5mg Take 1 tablet by mouth 2 (two) times daily as needed for Anxiety. [facility] ondansetron 4 mg tablet - 00:00: 00 01-05 00:00 :00 No 4mg Take 1 tablet by mouth every 4 (four) hours as needed for Nausea and Vomiting (N/V). [facility] neomycin-po lymyxin-hyd rocortisone 3.5-10,000- 1 mg/mL-unit/ mL-% otic susp 14 00:00: 00 04-03 00:00 :00 No [id number] 86816 3[drp] Place 3 Drops in left ear 4 (four) times daily. [facility] metroNIDAZO LE (FLAGYL) 500 mg tablet 10-16 00:00: 00 11-14 00:00 :00 No [id number] 500mg Take 1 tablet by mouth every 8 (eight) hours. [facility] sennosides- docusate sodium (ADONIS-COLAC E) 8.6-50 mg per tablet 5-11 00:00: 00 04-03 00:00 :00 No [id number] 1{tbl} Take 1 tablet by mouth daily. [facility] ondansetron (ZOFRAN) 4 mg tablet 2017-10- 00:00: 00 05-05 00:00 :00 No 4mg Take 1 tablet by mouth every 8 (eight) hours as needed for Nausea and Vomiting (N/V). [facility] acetaminoph en-codeine (TYLENOL-CO DEINE #3) 300-30 mg tablet 2017-10- 00:00: 00 16 00:00 :00 No 1{tbl} Take 1 tablet by mouth every 6 (six) hours as needed for Pain (scale 7-10). [facility] famotidine 40 mg tablet 04-12 00:00: 00 Yes [id number] 40mg Take 1 tablet by mouth daily. [facility] Immunizations Ordered Immunization Name Filled Immunization Name Date Status Comments Source Influenza High Dose Quad 2020-07-03 00:00:00 Completed [facility] Influenza High Dose Quad 2020-07-03 00:00:00 Completed [facility] Influenza High Dose Quad 2020-07-03 00:00:00 Completed [facility] Influenza High Dose Quad 2020-07-03 00:00:00 Completed [facility] Influenza High Dose Quad 2020-07-03 00:00:00 Completed [facility] Influenza High Dose Quad 2020-07-03 00:00:00 Completed [facility] Influenza High Dose Quad 2020-07-03 00:00:00 Completed [facility] Influenza High Dose Quad 2020-07-03 00:00:00 Completed [facility] Influenza High Dose Quad 2020-07-03 00:00:00 Completed [facility] Influenza High Dose Quad 2020-07-03 00:00:00 Completed [facility] Influenza High Dose Quad 2020-07-03 00:00:00 Completed [facility] Influenza High Dose Quad 2020-07-03 00:00:00 Completed [facility] Influenza High Dose Quad 2020-07-03 00:00:00 Completed [facility] Influenza High Dose Quad 2020-07-03 00:00:00 Completed [facility] Influenza High Dose Quad 2020-07-03 00:00:00 Completed [facility] Influenza High Dose Quad 2020-07-03 00:00:00 Completed [facility] Influenza High Dose Quad 2020-07-03 00:00:00 Completed [facility] Influenza High Dose Quad 2020-07-03 00:00:00 Completed [facility] Influenza High Dose Quad 2020-07-03 00:00:00 Completed [facility] Influenza High Dose Quad 2020-07-03 00:00:00 Completed [facility] Influenza High Dose Quad 2020-07-03 00:00:00 Completed [facility] Influenza High Dose Quad 2020-07-03 00:00:00 Completed [facility] Influenza High Dose Quad 2020-07-03 00:00:00 Completed [facility] Influenza High Dose Quad 2020-07-03 00:00:00 Completed [facility] Influenza High Dose Quad 2020-07-03 00:00:00 Completed [facility] Influenza High Dose Quad 2020-07-03 00:00:00 Completed [facility] Influenza High Dose Quad 2020-07-03 00:00:00 Completed [facility] Influenza High Dose Quad 2020-07-03 00:00:00 Completed [facility] Influenza High Dose Quad 2020-07-03 00:00:00 Completed [facility] Influenza High Dose Quad 2020-07-03 00:00:00 Completed [facility] Influenza High Dose Quad 2020-07-03 00:00:00 Completed [facility] Influenza High Dose Quad 2020-07-03 00:00:00 Completed [facility] Influenza High Dose Quad 2020-07-03 00:00:00 Completed [facility] Influenza High Dose Quad 2020-07-03 00:00:00 Completed [facility] Influenza High Dose Quad 2020-07-03 00:00:00 Completed [facility] Influenza High Dose Quad 2020-07-03 00:00:00 Completed [facility] Influenza High Dose Quad 2020-07-03 00:00:00 Completed [facility] Influenza High Dose Quad 2020-07-03 00:00:00 Completed [facility] Influenza High Dose Quad 2020-07-03 00:00:00 Completed [facility] Influ[facility] High Dose Quad 2020-07-03 00:00:00 Completed [facility] Influ[facility] High Dose Quad 2020-07-03 00:00:00 Completed [facility] High Dose Quad 2020-07-03 00:00:00 Completed [facility] High Dose Quad 2020-07-03 00:00:00 Completed [facility] High Dose Quad 2020-07-03 00:00:00 Completed [facility] High Dose Quad 2020-07-03 00:00:00 Completed [facility] High Dose Quad 2020-07-03 00:00:00 Completed [facility] High Dose Quad 2020-07-03 00:00:00 Completed [facility] High Dose Quad 2020-07-03 00:00:00 Completed [facility] High Dose Quad 2020-07-03 00:00:00 Completed [facility] High Dose Quad 2020-07-03 00:00:00 Completed [facility] High Dose Quad 2020-07-03 00:00:00 Completed [facility] High Dose Quad 2020-07-03 00:00:00 Completed [facility] High Dose Quad 2020-07-03 00:00:00 Completed [facility] High Dose Quad 2020-07-03 00:00:00 Completed [facility] High Dose Quad 2020-07-03 00:00:00 Completed [facility] High Dose Quad 2020-07-03 00:00:00 Completed [facility] High Dose Quad 2020-07-03 00:00:00 Completed [facility] High Dose Quad 2020-07-03 00:00:00 Completed [facility] High Dose Quad 2020-07-03 00:00:00 Completed [facility] High Dose Quad 2020-07-03 00:00:00 Completed [facility] High Dose Quad 2020-07-03 00:00:00 Completed [facility] High Dose Quad 2020-07-03 00:00:00 Completed [facility] High Dose Quad Unknown Completed [facility] High Dose Quad Unknown Completed [facility] High Dose Quad Unknown Completed [facility] High Dose Quad Unknown Completed [facility] High Dose Quad Unknown Completed [facility] High Dose Quad Unknown Completed [facility] High Dose Quad Unknown Completed [facility] High Dose Quad Unknown Completed [facility] High Dose Quad Unknown Completed [facility] High Dose Quad Unknown Completed [facility] High Dose Quad Unknown Completed [facility] High Dose Quad Unknown Completed [facility] High Dose Quad Unknown Completed [facility] High Dose Quad Unknown Completed [facility] High Dose Quad Unknown Completed [facility] High Dose Quad Unknown Completed [facility] High Dose Quad Unknown Completed [facility] High Dose Quad Unknown Completed [facility] High Dose Quad Unknown Completed [facility] High Dose Quad Unknown Completed [facility] High Dose Quad Unknown Completed [facility] High Dose Quad Unknown Completed [facility] High Dose [facility] Unknown Completed [facility] High Dose Quad Unknown Completed [facility] High Dose Quad Unknown Completed [facility] High Dose Quad Unknown Completed [facility] High Dose Quad Unknown Completed [facility] High Dose Quad Unknown Completed [facility] High Dose Quad Unknown Completed [facility] High Dose Quad Unknown Completed [facility] High Dose Quad Unknown Completed [facility] High Dose Quad Unknown Completed [facility] High Dose Quad Unknown Completed [facility] High Dose Quad Unknown Completed [facility] High Dose Quad Unknown Completed [facility] High Dose Quad Unknown Completed [facility] High Dose Quad Unknown Completed [facility] High Dose Quad Unknown Completed [facility] Influ[employer] High Dose Quad Unknown Completed [facility] Influ[employer] High Dose Quad Unknown Completed [facility] Influ[employer] High Dose Quad Unknown Completed [facility] Influ[facility] High Dose Quad Unknown Completed [facility] Vital Signs Vital Name Observation Time Observation Value Comments S ource Systolic blood pressure 2024-04-03 18:57:00 135 mm[Hg] [facility] Diastolic blood pressure 2024-04-03 18:57:00 61 mm[Hg] [facility] Heart rate 2024-04-03 18:56:00 72 /min Un[facility] Body temperature 2024-04-03 18:56:00 37.06 Denice [facility] Body height 2024-04-03 18:56:00 165.1 cm Univ [facility] Body weight 2024-04-03 18:56:00 55.339 kg [facility] BMI 2024-04-03 18:56:00 20.30 kg/m2 [facility] Oxygen saturation in Arterial blood by Pulse oximetry 2024-04-03 18:56:00 97 /min [facility] Systolic blood pressure 2024-03-15 18:41:00 125 mm[Hg] [facility] Diastolic blood pressure 2024-03-15 18:41:00 70 mm[Hg] [facility] Heart rate 2024-03-15 18:41:00 65 /min [facility] Body height 2024-03-15 18:41:00 165.1 cm Univ [facility] Body weight 2024-03-15 18:41:00 57.153 kg [facility] BMI 2024-03-15 18:41:00 20.97 kg/m2 [facility] Oxygen saturation in Arterial blood by Pulse oximetry 2024-03-15 18:41:00 97 /min [facility] Systolic blood pressure 2024-01-12 18:12:00 139 mm[Hg] [facility] Diastolic blood pressure 2024-01-12 18:12:00 78 mm[Hg] [facility] Heart rate 2024-01-12 18:09:00 77 /min [facility] Body temperature 2024-01-12 18:09:00 36.5 Denice [facility] Body height 2024-01-12 18:09:00 165.1 cm Univ [facility] Body weight 2024-01-12 18:09:00 55.339 kg [facility] BMI 2024-01-12 18:09:00 20.30 kg/m2 Univ [facility] Systolic blood pressure 2023-11-14 20:07:00 122 mm[Hg] [facility] Diastolic blood pressure 2023-11-14 20:07:00 74 mm[Hg] [facility] Heart rate 2023-11-14 20:01:00 78 /min [facility] Body temperature 2023-11-14 20:01:00 36.94 Denice [facility] Body height 2023-11-14 20:01:00 165.1 cm Univ [facility] Body weight 2023-11-14 20:01:00 53.978 kg [facility] BMI 2023-11-14 20:01:00 19.80 kg/m2 [facility] Systolic blood pressure 2023-10-05 19:56:00 149 mm[Hg] [facility] Diastolic blood pressure 2023-10-05 19:56:00 81 mm[Hg] [place] [facility] Heart rate 2023-10-05 19:55:00 87 /min [facility] Body height 2023-10-05 19:55:00 165.1 cm [facility] Body weight 2023-10-05 19:55:00 57.97 kg [facility] BMI 2023-10-05 19:55:00 21.27 kg/m2 [facility] Oxygen saturation in Arterial blood by Pulse oximetry 2023-10-05 19:55:00 98 /min [facility] Systolic blood pressure 2023-09-21 19:06:00 131 mm[Hg] [facility] Diastolic blood pressure 2023-09-21 19:06:00 76 mm[Hg] [facility] Heart rate 2023-09-21 19:06:00 66 /min [facility] Body height 2023-09-21 19:06:00 165.1 cm [facility] Body weight 2023-09-21 19:06:00 57.335 kg [facility] BMI 2023-09-21 19:06:00 21.03 kg/m2 [facility] Oxygen saturation in Arterial blood by Pulse oximetry 2023-09-21 19:06:00 99 /min [facility] Systolic blood pressure 2023-09-20 19:35:00 136 mm[Hg] [facility] Diastolic blood pressure 2023-09-20 19:35:00 69 mm[Hg] [place] [facility] Heart rate 2023-09-20 19:35:00 61 /min [facility] Body height 2023-09-20 19:35:00 165.1 cm Univ [facility] Body weight 2023-09-20 19:35:00 57.289 kg Univ [facility] BMI 2023-09-20 19:35:00 21.02 kg/m2 [facility] Oxygen saturation in Arterial blood by Pulse oximetry 2023-09-20 19:35:00 99 /min [facility] Systolic blood pressure 2023-05-17 16:18:00 161 mm[Hg] [facility] Diastolic blood pressure 2023-05-17 16:18:00 73 mm[Hg] [facility] Heart rate 2023-05-17 16:18:00 76 /min [facility] Body height 2023-05-17 16:18:00 165.1 cm Univ [facility] Body weight 2023-05-17 16:18:00 54.658 kg [facility] BMI 2023-05-17 16:18:00 20.05 kg/m2 [facility] Oxygen saturation in Arterial blood by Pulse oximetry 2023-05-17 16:18:00 99 /min [facility] Systolic blood pressure 2023-04-20 19:29:00 132 mm[Hg] [facility] Diastolic blood pressure 2023-04-20 19:29:00 66 mm[Hg] [facility] Heart rate 2023-04-20 19:29:00 64 /min [facility] Respiratory rate 2023-04-20 19:29:00 18 /min [facility] Body height 2023-04-20 19:29:00 165.1 cm Univ [facility] Body weight 2023-04-20 19:29:00 55.883 kg [facility] BMI 2023-04-20 19:29:00 20.50 kg/m2 [facility] Oxygen saturation in Arterial blood by Pulse oximetry 2023-04-20 19:29:00 99 /min [facility] Systolic blood pressure 2023-03-10 18:43:00 144 mm[Hg] [facility] Diastolic blood pressure 2023-03-10 18:43:00 53 mm[Hg] [facility] Heart rate 2023-03-10 18:43:00 60 /min [facility] Respiratory rate 2023-03-10 18:43:00 18 /min [facility] Body height 2023-03-10 18:43:00 165.1 cm Univ [facility] Body weight 2023-03-10 18:43:00 56.518 kg Univ [facility] BMI 2023-03-10 18:43:00 20.73 kg/m2 [facility] Oxygen saturation in Arterial blood by Pulse oximetry 2023-03-10 18:43:00 99 /min [facility] Systolic blood pressure 2023-02-24 18:53:00 165 mm[Hg] [facility] Diastolic blood pressure 2023-02-24 18:53:00 63 mm[Hg] [facility] Heart rate 2023-02-24 18:52:00 58 /min [facility] Body temperature 2023-02-24 18:52:00 37.33 Denice [facility] Body height 2023-02-24 18:52:00 165.1 cm [facility] Body weight 2023-02-24 18:52:00 55.339 kg [facility] BMI 2023-02-24 18:52:00 20.30 kg/m2 [facility] Systolic blood pressure 2023-01-05 14:04:00 183 mm[Hg] [facility] Diastolic blood pressure 2023-01-05 14:04:00 76 mm[Hg] [facility] Heart rate 2023-01-05 14:03:00 61 /min [facility] Body temperature 2023-01-05 14:03:00 36.67 Denice [facility] Body height 2023-01-05 14:03:00 165.1 cm [facility] Body weight 2023-01-05 14:03:00 54.432 kg [facility] BMI 2023-01-05 14:03:00 19.97 kg/m2 [facility] Oxygen saturation in Arterial blood by Pulse oximetry 2023-01-05 14:03:00 99 /min [facility] Systolic blood pressure 2022-12-24 13:18:00 180 mm[Hg] [facility] Diastolic blood pressure 2022-12-24 13:18:00 74 mm[Hg] [facility] Heart rate 2022-12-24 13:18:00 71 /min [facility] Body height 2022-12-24 13:09:00 162.6 cm [facility] Body weight 2022-12-24 13:09:00 58.06 kg Univ [facility] BMI 2022-12-24 13:09:00 21.97 kg/m2 [facility] Oxygen saturation in Arterial blood by Pulse oximetry 2022-12-24 13:09:00 97 /min [facility] Systolic blood pressure 2022-12-16 18:07:00 179 mm[Hg] [facility] Diastolic blood pressure 2022-12-16 18:07:00 82 mm[Hg] [facility] Heart rate 2022-12-16 18:07:00 64 /min [facility] Body weight 2022-12-16 18:07:00 56.246 kg Univ [facility] BMI 2022-12-16 18:07:00 20.63 kg/m2 [facility] Oxygen saturation in Arterial blood by Pulse oximetry 2022-12-16 18:07:00 97 /min [facility] Systolic blood pressure 2022-11-25 18:19:00 157 mm[Hg] [facility] Diastolic blood pressure 2022-11-25 18:19:00 73 mm[Hg] [facility] Heart rate 2022-11-25 18:18:00 61 /min [facility] Body height 2022-11-25 18:18:00 165.1 cm [facility] Body weight 2022-11-25 18:18:00 57.924 kg Univ [facility] BMI 2022-11-25 18:18:00 21.25 kg/m2 [facility] Oxygen saturation in Arterial blood by Pulse oximetry 2022-11-25 18:18:00 98 /min [facility] Systolic blood pressure 2022-10-25 20:12:00 166 mm[Hg] [facility] Diastolic blood pressure 2022-10-25 20:12:00 71 mm[Hg] [facility] Heart rate 2022-10-25 19:55:00 63 /min [facility] Body height 2022-10-25 19:55:00 165.1 cm [facility] Body weight 2022-10-25 19:55:00 58.469 kg [facility] BMI 2022-10-25 19:55:00 21.45 kg/m2 [facility] Oxygen saturation in Arterial blood by Pulse oximetry 2022-10-25 19:55:00 97 /min [facility] Systolic blood pressure 2022-09-22 19:13:00 188 mm[Hg] [facility] Diastolic blood pressure 2022-09-22 19:13:00 79 mm[Hg] [facility] Heart rate 2022-09-22 19:12:00 71 /min [facility] Body height 2022-09-22 19:12:00 165.1 cm [facility] Body weight 2022-09-22 19:12:00 59.33 kg Univ [facility] BMI 2022-09-22 19:12:00 21.77 kg/m2 [facility] Oxygen saturation in Arterial blood by Pulse oximetry 2022-09-22 19:12:00 98 /min [facility] Systolic blood pressure 2022-06-04 20:17:00 156 mm[Hg] [facility] Diastolic blood pressure 2022-06-04 20:17:00 81 mm[Hg] [facility] Heart rate 2022-06-04 20:09:00 69 /min [facility] Body weight 2022-06-04 20:09:00 60.51 kg [facility] BMI 2022-06-04 20:09:00 22.20 kg/m2 [facility] Oxygen saturation in Arterial blood by Pulse oximetry 2022-06-04 20:09:00 95 /min [facility] Procedures Procedure Date / Time Performed Performing Clinician Source EXTERNAL PROVIDER RECORDS 2023-11-25 06:01:00 Do ctor Unassigned, [place] [facility] CT ABDOMEN PELVIS W CONTRAST 2023-10-05 21:41:00 Wilfred Ramos [facility] HB CREATININE SERUM/BLOOD FOR IMAGING 2023-10-05 21:25:00 Wilfred Ramos [facility] POCT HEMOGLOBIN A1C TEST 2023-09-20 19:37:00 Chano Ruelas [facility] PHYSICIAN CERTIFICATION STATEMENT 2023-04-18 05:01:00 [place] Unassigned, [place] [facility] OTHER 2023-03-06 05:01:00 Doctor Alvino greensigned, [place] [facility] 2023-02-10 05:01:00 Doctor Alvino greensigned, [place] [facility] OTHER 2023-01-27 05:01:00 Doctor U petersijose migueled, [place] [facility] EXTERNAL PROVIDER RECORDS 2023-01-18 05:01:00 Do ctor Unassigned, [place] [facility] EXTERNAL PROVIDER RECORDS 2023-01-05 05:01:00 Do ctor Unassigned, [place] [facility] CONSENT/REFUSAL FOR DIAGNOSIS AND TREATMENT 2022-11-25 17:42:39 Doctor Unassigned, [place] [facility] INSURANCE CORRESPONDENCE 2022-08-09 06:01:00 Doc tor Unassigned, [place] [facility] MEDICAL RELEASE/CLEARANCE FORMS 2022-06-18 05:01:00 Doctor Unassigned, [place] [facility] POCT HEMOGLOBIN A1C TEST 2022-06-04 20:20:00 Jamie Guzmán [facility] Encounters Start Date/Time End Date/Time Encounter Type Admission Type Attending Clinicians Care Facility Care Department Encounter ID Source 2021-08-02 04:31:18 Outpatient JAI OTERO [facility] [id number] [facility] 2021-08-01 18:59:03 Emergency [facility] [id number] [facility] 2024-04-03 00:00:00 2024-04-03 16:09:24 [facility] 1.2.840.114 350.1.13.10 4.2.7.2.686 [id number] [facility] 2024-04-03 14:30:00 2024-04-03 15:00:00 Office Visit ElenipraveenRosio [facility] 1.2840.114 350.1.13.10 4.2.7.2.686 [id number] [facility] 2024-04-03 00:00:00 2024-04-03 14:42:06 Telephone Richard Wilfred [facility] 1.2840.114 350.1.13.10 4.2.7.2.686 [id number] [facility] 2024-04-03 14:30:00 2024-04-03 14:30:00 Outpatient R ROSIO WILLIAMSON [facility] [id number] [facility] 2024-04-02 00:00:00 2024-04-03 09:48:51 Telephone Richard Wilfred [facility] 1.2840.114 350.1.13.10 4.2.7.2.686 [id number] [facility] 2024-04-02 00:00:00 2024-04-02 14:28:50 Telephone Omer Ruelas [facility] 1.2.840.114 350.1.13.10 4.2.7.2.686 [id number] [facility] 2024-03-22 00:00:00 2024-03-23 12:06:[address] [facility] [id number] 350.1.13.10 4.2.7.2.686 [id number] [facility] 2024-03-21 00:00:00 2024-03-22 15:25:47 Telephone [facility] 1.2.840.114 350.1.13.10 4.2.7.2.686 [id number] [facility] 2024-03-20 00:00:00 2024-03-20 10:46:17 Telephone [facility] 1.2.840.114 350.1.13.10 4.2.7.2.686 [id number] [facility] 2024-03-19 00:00:00 2024-03-19 15:54:19 [facility] [id number] 350.1.13.10 4.2.7.2.686 [id number] [facility] 2024-03-17 00:00:00 2024-03-19 09:02:04 Telephone [facility] 1.2.840.114 350.1.13.10 4.2.7.2.686 [id number] [facility] 2024-03-15 14:30:00 2024-03-15 14:30:00 Office Visit [facility] 1.2.840.114 350.1.13.10 4.2.7.2.686 [id number] [facility] 2024-03-15 14:30:00 2024-03-15 14:04:35 Outpatient R WILFRED RAMOS [facility] [id number] [facility] 2024-02-21 00:00:00 2024-02-21 10:29:31 Telephone Wilfred Ramos [facility] 1.2.840.114 350.1.13.10 4.2.7.2.686 [id number] [facility] 2024-02-13 00:00:00 2024-02-13 15:22:02 [facility]ill [facility] 1.2840.114 350.1.13.10 4.2.7.2.686 [id number] [facility] 2024-01-24 10:00:00 2024-01-24 10:00:00 Outpatient R STEVEN GARNICA [facility] [id number] [facility] 2024-01-20 13:00:00 2024-01-20 13:00:00 Outpatient R STEVEN GARNICA [facility] [id number] [facility] 2024-01-12 13:00:00 2024-01-12 14:16:23 Outpatient R ANJU HANNA [facility] [id number] [facility] 2024-01-12 13:00:00 2024-01-12 14:16:23 Office Visit Anju [facility] 1.2.840.114 350.1.13.10 4.2.7.2.686 [id number] [facility] 2024-01-11 00:00:00 2024-01-11 00:00:00 [facility] 1.2.840.114 350.1.13.10 4.2.7.2.686 [id number] [facility] 2023-12-20 00:00:00 2023-12-20 00:00:00 [facility] 1.2.840.114 350.1.13.10 4.2.7.2.686 [id number] [facility] 2023-12-08 00:00:00 2023-12-08 00:00:00 [facility] 1.2.840.114 350.1.13.10 4.2.7.2.686 [id number] [facility] 2023-12-01 00:00:00 2023-12-01 00:00:00 Refill Richard [facility] 1.2.840.114 350.1.13.10 4.2.7.2.686 [id number] [facility] 2023-11-25 00:00:00 2023-11-25 00:00:00 Orders Only Doctor Unassigned, [place] [facility] 1.2840.114 350.1.13.10 4.2.7.2.686 [id number] [facility] 2023-11-25 00:00:00 2023-11-25 00:00:00 Telephone Rosio Williamson [facility] 1.2.840.114 350.1.13.10 4.2.7.2.686 [id number] [facility] 2023-11-14 13:00:00 2023-11-14 15:03:56 Outpatient R ROSIO WILLIAMSON [facility] [id number] [facility] 2023-11-14 13:00:00 2023-11-14 15:03:56 Office Visit Rosio Williamson [facility] [place] 1.2840.114 350.1.13.10 4.2.7.2.686 [id number] [facility] 2023-10-05 15:02:41 2023-10-05 23:59:00 Hospital Encounter Wilfred Ramos [facility] 1.2840.114 350.1.13.10 4.2.7.2.686 [id number] [facility] 2023-10-05 14:15:00 2023-10-05 14:15:00 Office Visit Wilfred Ramos [facility] 1.2840.114 350.1.13.10 4.2.7.2.686 [id number] 044 [id number] [facility] 2023-10-05 14:15:00 2023-10-05 14:13:50 Outpatient R WILFRED RAMOS [facility] [id number] [facility] 2023-09-27 00:00:00 2023-09-27 00:00:00 Letter (Out) Iftikhar [facility] PROFESSIO NAL BUILDING 1.2840.114 350.1.13.10 4.2.7.2.686 [id number] 059 [id number] [facility] 2023-09-23 00:00:00 2023-09-23 00:00:00 Patient Secure Msg Doctor Unassigned, [place] [facility] MEDICAL OFF[facility] BUILDING 1.2840.114 350.1.13.10 4.2.7.2.686 [id number] 059 [id number] [facility] 2023-09-21 13:15:00 2023-09-21 13:30:00 Office Visit Wilfred Ramos [facility] 1.2840.114 350.1.13.10 4.2.7.2.686 [id number] 044 [id number] [facility] 2023-09-21 13:15:00 2023-09-21 13:15:00 Outpatient R WILFRED RAMOS [facility] [id number] [facility] 2023-09-20 13:30:00 2023-09-20 14:18:45 Outpatient R [facility] [id number] [facility] 2023-09-20 13:30:00 2023-09-20 14:18:45 [facility] 1.2840.114 350.1.13.10 4.2.7.2.686 [id number] [facility] 2023-09-07 00:00:00 2023-09-07 00:00:00 [facility] 1.2840.114 350.1.13.10 4.2.7.2.686 [id number] 044 [id number] [facility] 2023-08-16 00:00:00 2023-08-16 00:00:00 Refill [facility] 1.2840.114 350.1.13.10 4.2.7.2.686 [id number] 044 [id number] [facility] 2023-07-14 00:00:00 2023-07-14 00:00:00 Refill [facility]za [facility] 1.2840.114 350.1.13.10 4.2.7.2.686 [id number] 044 [id number] [facility] 2023-06-18 00:00:00 2023-06-18 00:00:00 [facility] 1.2840.114 350.1.13.10 4.2.7.2.686 [id number] 044 [id number] [facility] 2023-05-17 11:00:00 2023-05-17 12:21:30 Outpatient R OMER RUELAS [facility] [id number] [facility] 2023-05-17 11:00:00 2023-05-17 12:21:30 Office Visit [facility] 1.2840.114 350.1.13.10 4.2.7.2.686 [id number] [facility] 2023-05-17 00:00:00 2023-05-17 00:00:[address] [facility] 1.84.114 350.1.13.10 4.2.7.2.686 [id number] 220 [id number] [facility] 2023-05-13 00:00:00 2023-05-13 00:00:00 Telephone Richard [facility] 1.84.114 350.1.13.10 4.2.7.2.686 [id number] 044 [id number] [facility] 2023-04-30 00:00:00 2023-04-30 00:00:00 Patient Secure Msg Doctor Unassigned, [place] [facility] 1.2.114 350.1.13.10 4.2.7.2.686 [id number] 019 [id number] [facility] 2023-04-25 00:00:00 2023-04-25 00:00:00 Telephone Richard Critical access hospitalE?[facility] 1.284114 350.1.13.10 4.2.7.2.686 [id number] 044 [id number] [facility] 2023-04-20 14:30:00 2023-04-20 16:45:51 Outpatient R RICHARD WIFLRED [facility] [id number] [facility] 2023-04-20 14:30:00 2023-04-20 16:45:51 [facility] 1.2.840.114 350.1.13.10 4.2.7.2.686 [id number] 044 [id number] [facility] 2023-04-18 00:00:00 2023-04-18 00:00:00 Orders Only Doctor Unassigned, [place] [facility] 1.2.840.114 350.1.13.10 4.2.7.2.686 [id number] [id number] [facility] 2023-04-14 00:00:00 2023-04-14 00:00:00 Telephone [facility] 1.2.840.114 350.1.13.10 4.2.7.2.686 [id number] 044 [id number] [facility] 2023-04-11 00:00:00 2023-04-11 00:00:00 Refill Richard [facility] 1.2.840.114 350.1.13.10 4.2.7.2.686 [id number] 044 [id number] [facility] 2023-03-15 13:00:00 2023-03-15 13:15:00 Production Recorder Visit Lab, Fernando - Nnamdi Richard Critical access hospitalE?[facility] 1.2840.114 350.1.13.10 4.2.7.2.686 [id number] [facility] 2023-03-15 13:00:00 2023-03-15 13:00:00 Outpatient R WILFRED RAMOS [facility] [id number] [facility] 2023-03-14 00:00:00 2023-03-14 00:00:00 Telephone Wilfred Ramos [facility] 1.0.114 350.1.13.10 4.2.7.2.686 [id number] 044 [id number] [facility] 2023-03-11 09:45:00 2023-03-11 10:00:00 Production Recorder Visit Lab, Fernando - Nnamdi Richard Critical access hospitalE?[facility] 1.0.114 350.1.13.10 4.2.7.2.686 [id number] [facility] 2023-03-11 09:45:00 2023-03-11 09:45:00 Outpatient WILFRED PERRY [facility] [id number] [facility] 2023-03-10 14:00:00 2023-03-10 14:15:00 Office Visit Richard Critical access hospitalE?[facility] 1.0.114 350.1.13.10 4.2.7.2.686 [id number] 044 [id number] [facility] 2023-03-10 14:00:00 2023-03-10 14:00:00 Outpatient WILFRED PERRY [facility] [id number] [facility] 2023-03-06 00:00:00 2023-03-06 00:00:00 Orders Only Doctor Unassigned, [place] [facility] 1..114 350.1.13.10 4.2.7.2.686 [id number] [id number] [facility] 2023-03-04 00:00:00 2023-03-04 00:00:00 Refill Richard [facility] 1..114 350.1.13.10 4.2.7.2.686 [id number] 044 [id number] [facility] 2023-02-24 14:15:00 2023-02-24 14:45:00 Office Visit [facility] BU[facility] 1.284114 350.1.13.10 4.2.7.2.686 [id number] 044 [id number] [facility] 2023-02-24 14:15:00 2023-02-24 14:15:00 Outpatient R WILFRED RAMOS [facility] [id number] [facility] 2023-02-12 00:00:00 2023-02-12 00:00:00 Telephone [facility] 1.284.114 350.1.13.10 4.2.7.2.686 [id number] 044 [id number] [facility] 2023-02-10 00:00:00 2023-02-10 00:00:00 Orders Only Doctor Unassigned, [place] [facility] 1.20.114 350.1.13.10 4.2.7.2.686 [id number] [id number] [facility] 2023-02-03 00:00:00 2023-02-03 00:00:00 Refill Richard [facility] 1.20.114 350.1.13.10 4.2.7.2.686 [id number] 044 [id number] [facility] 2023-01-27 00:00:00 2023-01-27 00:00:00 Orders Only Doctor Unassigned, [place] [facility] 1.20.114 350.1.13.10 4.2.7.2.686 [id number] [id number] [facility] 2023-01-18 00:00:00 2023-01-18 00:00:00 Orders Only Doctor Unassigned, [place] [facility] 1.2840.114 350.1.13.10 4.2.7.2.686 [id number] [id number] [facility] 2023-01-05 09:00:00 2023-01-05 09:30:00 [facility] 1.2840.114 350.1.13.10 4.2.7.2.686 [id number] 044 [id number] [facility] 2023-01-05 09:00:00 2023-01-05 09:00:00 Outpatient R WILFRED RAMOS [facility] [id number] [facility] 2023-01-05 00:00:00 2023-01-05 00:00:00 Telephone Richard Critical access hospitalE?[facility] 1.840.114 350.1.13.10 4.2.7.2.686 [id number] 044 [id number] [facility] 2023-01-05 00:00:00 2023-01-05 00:00:00 Orders Only Doctor Unassigned, [place] [facility] 1.840.114 350.1.13.10 4.2.7.2.686 [id number] [id number] [facility] 2023-01-03 00:00:00 2023-01-03 00:00:00 Telephone Wilfred Ramos [facility] 1.2840.114 350.1.13.10 4.2.7.2.686 [id number] 044 [id number] [facility] 2022-12-31 00:00:00 2022-12-31 00:00:00 Telephone Richard [facility] 1.2840.114 350.1.13.10 4.2.7.2.686 [id number] 044 [id number] [facility] 2022-12-29 00:00:00 2022-12-29 00:00:[address] [facility] MARVIN BRIGGS?[facility] 1..840.114 350.1.13.10 4.2.7.2.686 [id number] 044 [id number] [facility] 2022-12-24 08:15:00 2022-12-24 11:00:14 Outpatient R LEEROY ALBARRAN [facility] [id number] [facility] 2022-12-24 08:15:00 2022-12-24 11:00:14 Office Visit [facility]bar[facility] 1.840.114 350.1.13.10 4.2.7.2.686 [id number] [facility] 2022-12-16 13:30:00 2022-12-16 14:38:40 Outpatient R WILFRED RAMOS [facility] [id number] [facility] 2022-12-16 13:30:00 2022-12-16 14:38:40 Office Visit [facility] BU[facility] 1.84.114 350.1.13.10 4.2.7.2.686 [id number] 044 [id number] [facility] 2022-12-16 00:00:00 2022-12-16 00:00:00 Refill Wilfred [facility] 1.84.114 350.1.13.10 4.2.7.2.686 [id number] 044 [id number] [facility] 2022-11-25 12:15:00 2022-11-25 12:30:00 Office Visit Wilfred Ramos [facility] 1.84.114 350.1.13.10 4.2.7.2.686 [id number] 044 [id number] [facility] 2022-11-25 12:15:00 2022-11-25 12:15:00 Outpatient WILFRED PERRY [facility] [id number] [facility] 2022-11-25 00:00:00 2022-11-25 00:00:00 Orders Only Doctor Unassigned, [place] [facility] 1.840.114 350.1.13.10 4.2.7.2.686 [id number] [id number] [facility] 2022-10-25 14:15:00 2022-10-25 14:30:00 Office Visit [facility]fred [facility] 1.2.840.114 350.1.13.10 4.2.7.2.686 [id number] 044 [id number] [facility] 2022-10-25 14:15:00 2022-10-25 14:15:00 Outpatient WILFRED PERRY [facility] [id number] [facility] 2022-10-25 00:00:00 2022-10-25 00:00:00 Telephone [facility] 1.2.840.114 350.1.13.10 4.2.7.2.686 [id number] 044 [id number] [facility] 2022-09-29 00:00:00 2022-09-29 00:00:00 Refill Richard Critical access hospitalE?[facility] 1..840.114 350.1.13.10 4.2.7.2.686 [id number] 044 [id number] [facility] 2022-09-22 14:12:09 2022-09-22 23:59:00 Outpatient WILFRED PERRY [facility] [id number] [facility] 2022-09-22 13:45:00 2022-09-22 14:04:05 Production Recorder Visit Lab, Wilfred Salinas [facility] 1.2840.114 350.1.13.10 4.2.7.2.686 [id number] [facility] 2022-09-22 13:15:00 2022-09-22 13:30:00 Office Visit Wilfred Ramos [facility] 1.2840.114 350.1.13.10 4.2.7.2.686 [id number] 044 [id number] [facility] 2022-09-17 00:00:00 2022-09-17 00:00:00 Patient Secure Msg Doctor Unassigned, [place] [facility] 1.2840.114 350.1.13.10 4.2.7.2.686 [id number] 044 [id number] [facility] 2022-08-20 00:00:00 2022-08-20 00:00:00 Refill Wilfred Ramos [facility] 1.0.114 350.1.13.10 4.2.7.2.686 [id number] 044 [id number] [facility] 2022-08-09 00:00:00 2022-08-09 00:00:00 Orders Only Doctor Unassigned, [place] [facility] 1.0.114 350.1.13.10 4.2.7.2.686 [id number] [facility] 2022-07-06 00:00:00 2022-07-06 00:00:00 Refill Richard Wilfred [facility] 1.2.114 350.1.13.10 4.2.7.2.686 [id number] 044 [id number] [facility] 2022-06-24 00:00:00 2022-06-24 00:00:00 Telephone Jamie Guzmán [facility] 1.2.840.114 350.1.13.10 4.2.7.2.686 [id number] 220 [id number] [facility] 2022-06-21 00:00:00 2022-06-21 00:00:00 Telephone Jamie Guzmán [facility] 1.2.840.114 350.1.13.10 4.2.7.2.686 [id number] 220 [id number] [facility] 2022-06-18 00:00:00 2022-06-18 00:00:00 Orders Only Doctor Unassigned, [place] [facility] 1.2.840.114 350.1.13.10 4.2.7.2.686 [id number] [id number] [facility] 2022-06-15 00:00:00 2022-06-15 00:00:00 Telephone Jamie Guzmán [facility] 1.2.840.114 350.1.13.10 4.2.7.2.686 [id number] 220 [id number] [facility] 2022-06-04 15:30:00 2022-06-04 15:58:45 Office Visit Jamie Guzmán [facility] 1.2.840.114 350.1.13.10 4.2.7.2.686 [id number] 220 [id number] [facility] 2022-06-04 15:30:00 2022-06-04 15:58:45 Outpatient R JAMIE GUZMÁN [facility] [id number] [facility] 2022-06-04 15:30:00 2022-06-04 15:30:00 Outpatient R JAMIE GUZMÁN [facility] [id number] [facility] 2022-05-14 00:00:00 2022-05-14 00:00:00 Refill Wilfred Ramos [facility] 1.2840.114 350.1.13.10 4.2.7.2.686 [id number] 044 [id number] [facility] 2022-03-02 00:00:00 2022-03-02 00:00:00 Refill Wilfred Ramos [facility] 1.20.114 350.1.13.10 4.2.7.2.686 [id number] 044 [id number] [facility] 2022-02-25 12:30:00 2022-02-25 12:45:00 Office Visit Wilfred Ramos [facility] 1.840.114 350.1.13.10 4.2.7.2.686 [id number] 044 [id number] [facility] 2022-02-25 12:30:00 2022-02-25 12:30:00 Outpatient R WILFRED RAMOS [facility] [id number] [facility] 2022-02-17 00:00:00 2022-02-17 00:00:00 Refill Richard [facility] 1.84.114 350.1.13.10 4.2.7.2.686 [id number] 044 [id number] [facility] 2022-01-26 14:30:00 2022-01-26 14:56:48 Outpatient R MARCIA MONTALVO [facility] [id number] [facility] 2022-01-26 14:30:00 2022-01-26 14:56:48 [facility] 1.84.114 350.1.13.10 4.2.7.2.686 [id number] 220 [id number] [facility] 2022-01-15 00:00:00 2022-01-15 00:00:00 RefWilfred Keita [facility] OFFICE BUILDING ONE 1..114 350.1.13.10 4.2.7.2.686 [id number] 044 [id number] [facility] 2022-01-15 00:00:00 2022-01-15 00:00:00 [facility] 1..114 350.1.13.10 4.2.7.2.686 [id number] 044 [id number] [facility] 2022-01-15 00:00:00 2022-01-15 00:00:00 Francisco Ramos [facility] OFFICE BUILDING ONE 1.114 350.1.13.10 4.2.7.2.686 [id number] 044 [id number] [facility] 2022-01-07 00:00:00 2022-01-07 00:00:00 Refmargo Sunshineers [facility] 1.114 350.1.13.10 4.2.7.2.686 [id number] 044 [id number] [facility] 2021-11-30 13:00:00 2021-11-30 13:00:00 Outpatient R WILFRED RAMOS [facility] [id number] [facility] 2021-10-16 13:30:00 2021-10-16 14:32:38 Outpatient JAMIE ADAMS [facility] [id number] [facility] 2021-10-16 13:30:00 2021-10-16 14:32:38 Office Visit Marcia Montalvo Kevin [facility] CHESTER?[facility] BUILD[facility] 1.114 350.1.13.10 4.2.7.2.686 [id number] 220 [id number] [facility] 2021-10-16 00:00:00 2021-10-16 00:00:00 Orders Only Doctor Unassigned, [place] [facility] 1.2840.114 350.1.13.10 4.2.7.2.686 [id number] [id number] [facility] 2021-10-12 00:00:00 2021-10-12 00:00[facility] 1.840.114 350.1.13.10 4.2.7.2.686 [id number] 044 [id number] [facility] 2021-10-12 00:00:00 2021-10-12 00:00:00 Refill Dora Guzmán [facility] 1.840.114 350.1.13.10 4.2.7.2.686 [id number] 095 [id number] [facility] 2021-09-08 00:00:00 2021-09-08 00:00:00 Refill Richard [facility] OFFICE BUILDING ONE 1.840.114 350.1.13.10 4.2.7.2.686 [id number] 044 [id number] [facility] 2021-08-07 00:00:00 2021-08-07 00:00:00 Refill Ramos [facility] OFFICE BUILDING ONE 1.840.114 350.1.13.10 4.2.7.2.686 [id number] 044 [id number] [facility] 2021-07-04 00:00:00 2021-07-04 00:00[facility] 1.840.114 350.1.13.10 4.2.7.2.686 [id number] 044 [id number] [facility] 2021-07-01 00:00:00 2021-07-01 00:00:00 Refill Richard [facility] Office Building One 1.0.114 350.1.13.10 4.2.7.2.686 [id number] 044 [id number] [facility] 2021-04-30 14:15:00 2021-04-30 14:15:00 Outpatient R WILFRED RAMOS [facility] [id number] [facility] 2021-04-30 13:52:17 2021-04-30 14:07:17 Office Visit Richard [facility] Office Building One 1.0.114 350.1.13.10 4.2.7.2.686 [id number] 044 [id number] [facility] 2021-04-28 00:00:00 2021-04-28 00:00:00 Refill Wilfred Ramos [facility] Office Building One 1.0.114 350.1.13.10 4.2.7.2.686 [id number] 044 [id number] [facility] 2021-03-31 00:00:00 2021-03-31 00:00:00 Refill Richard Wilfred [facility] Office Building One 1..114 350.1.13.10 4.2.7.2.686 [id number] 044 [id number] [facility] 2021-03-16 00:00:00 2021-03-16 00:00:00 Refill Richard [facility] Office Building One 1.0.114 350.1.13.10 4.2.7.2.686 [id number] 044 [id number] [facility] 2021-02-23 13:15:00 2021-02-23 13:15:00 Outpatient R WILFRED RAMOS [facility] [id number] [facility] 2021-02-11 00:00:00 2021-02-11 00:00:00 [facility] 1.840.114 350.1.13.10 4.2.7.2.686 [id number] 044 [id number] [facility] 2021-01-29 00:00:00 2021-01-29 00:00:00 Telephone Wilfred Ramos [facility] Office Building One 1.840.114 350.1.13.10 4.2.7.2.686 [id number] 044 [id number] [facility] 2021-01-23 00:00:00 2021-01-23 00:00:00 Orders Only Doctor Unassigned, [place] [facility] 1.840.114 350.1.13.10 4.2.7.2.686 [id number] [facility] 2021-01-21 00:00:00 2021-01-21 00:00:00 Wilfred Flores [facility] Office [facility] 1.840.114 350.1.13.10 4.2.7.2.686 [id number] [facility] 2021-01-21 00:00:00 2021-01-21 00:00:00 Telephone Wilfred Ramos [facility] Office [facility] 1.840.114 350.1.13.10 4.2.7.2.686 [id number] [id number] [facility] 2021-01-21 00:00:00 2021-01-21 00:00:00 Orders Only Doctor Unassigned, [facility] 1.2840.114 350.1.13.10 4.2.7.2.686 [id number] [facility] 2021-01-19 15:00:00 2021-01-19 15:00:00 Outpatient PERLA YEH HOWARD [facility] [id number] [facility] 2021-01-15 00:00:00 2021-01-15 00:00:00 Orders Only Doctor Unassigned, [facility] 1.2840.114 350.1.13.10 4.2.7.2.686 [id number] [facility] 2021-01-13 13:40:00 2021-01-13 13:40:00 Outpatient PERLA YEH HOWARD [facility] [id number] [facility] 2021-01-06 00:00:00 2021-01-06 00:00:00 Orders Only Doctor Unassigned, [facility] 1.2840.114 350.1.13.10 4.2.7.2.686 [id number] [facility] 2020-12-26 00:00:00 2020-12-26 00:00:00 Orders Only Doctor Unassigned, [facility] 1.2840.114 350.1.13.10 4.2.7.2.686 [id number] [facility] 2020-12-17 08:10:00 2020-12-17 10:43:00 Hospital Encounter Jai Otero [facility] 1.2840.114 350.1.13.10 4.2.7.2.686 [id number] [facility] 2020-12-16 13:23:54 2020-12-16 13:38:54 Laboratory Only Only, Adc Test Jai Otero [facility] 1.2.840.114 350.1.13.10 4.2.7.2.686 [id number] [facility] 2020-12-16 13:00:00 2020-12-16 13:00:00 Outpatient R JAI OTERO [facility] [id number] [facility] 2020-12-16 00:00:00 2020-12-16 00:00:00 Orders Only Doctor Unassigned, [facility] 1.2.840.114 350.1.13.10 4.2.7.2.686 [id number] [facility] 2020-12-16 00:00:00 2020-12-16 00:00:00 Refill Richard [facility] 1.2840.114 350.1.13.10 4.2.7.2.686 [id number] [facility] 2020-12-10 00:00:00 2020-12-10 00:00:00 Patient Outreach Damien Quintanilla [facility] 1.2840.114 350.1.13.10 4.2.7.2.686 [id number] [facility] 2020-12-03 00:00:00 2020-12-03 00:00:00 Orders Only Doctor Unassigned, [facility] 1.2840.114 350.1.13.10 4.2.7.2.686 [id number] 009 [id number] [facility] 2020-12-02 00:00:00 2020-12-02 00:00:00 Telephone Richard [facility] Office Building One 1.840.114 350.1.13.10 4.2.7.2.686 [id number] 044 [id number] [facility] 2020-11-27 12:00:00 2020-11-27 12:00:00 [facility] [id number] [facility] 2020-11-27 00:00:00 2020-11-27 00:00:00 Outpatient [facility] [id number] [facility] 2020-11-27 00:00:00 2020-11-27 00:00:00 [facility] 1.0.114 350.1.13.10 4.2.7.2.686 [id number] 044 [id number] [facility] 2020-11-27 00:00:00 2020-11-27 00:00:00 Orders Only Doctor Unassigned, [facility] 1.0.114 350.1.13.10 4.2.7.2.686 [id number] [id number] [facility] 2020-11-26 00:00:00 2020-11-26 00:00:00 Telephone Richard [facility] One 1.0.114 350.1.13.10 4.2.7.2.686 [id number] 044 [id number] [facility] 2020-11-24 00:00:00 2020-11-24 00:00:[facility] 1.0.114 350.1.13.10 4.2.7.2.686 [id number] 044 [id number] [facility] 2020-11-23 00:00:00 2020-11-23 00:00:00 Orders Only Doctor Unassigned, [facility] 1.840.114 350.1.13.10 4.2.7.2.686 [id number] [id number] [facility] 2020-11-21 11:56:32 2020-11-21 12:39:07 Office Visit Richard [facility] Office [facility] One 1.0.114 350.1.13.10 4.2.7.2.686 [id number] 044 [id number] [facility] 2020-11-21 12:30:00 2020-11-21 12:30:00 Outpatient WILFRED PERRY [facility] [id number] [facility] 2020-11-21 00:00:00 2020-11-21 00:00:00 Telephone Richard [facility] One 1..840.114 350.1.13.10 4.2.7.2.686 [id number] 044 [id number] [facility] 2020-11-21 00:00:00 2020-11-21 00:00:00 Orders Only Doctor Unassigned, [facility] 1..840.114 350.1.13.10 4.2.7.2.686 [id number] [id number] [facility] 2020-11-20 14:45:00 2020-11-20 14:45:00 Outpatient WILFRED PERRY [facility] [id number] [facility] 2020-11-17 14:00:00 2020-11-17 14:00:00 Outpatient WILFRED PERRY [facility] [id number] [facility] 2020-11-13 12:00:00 2020-11-13 12:00:00 Outpatient WILFRED PERRY [facility] [id number] [facility] 2020-10-30 12:32:25 2020-10-30 12:47:25 Office Visit Wilfred Ramos [facility] Office Building One ..840.114 350.1.13.10 4.2.7.2.686 [id number] 044 [id number] [facility] 2020-10-30 12:30:00 2020-10-30 12:30:00 Outpatient WILFRED PERRY [facility] [id number] [facility] 2020-10-30 00:00:00 2020-10-30 00:00:00 Letter (Out) Ramos, [facility] Office Building One 1.2.840.114 350.1.13.10 4.2.7.2.686 [id number] 044 [id number] [facility] 2020-10-27 00:00:00 2020-10-27 00:00:00 Transition of Care Meseret Oden 1.2.840.114 350.1.13.10 4.2.7.2.686 [id number] [facility] 2020-10-24 16:23:00 2020-10-25 16:12:00 Emergency Aidee Lees [facility] 1.2.840.114 350.1.13.10 4.2.7.2.686 [id number] [id number] [facility] 2020-10-24 00:00:00 2020-10-24 00:00:00 Telephone Richard [facility] One 1.2.840.114 350.1.13.10 4.2.7.2.686 [id number] 044 [id number] [facility] 2020-10-23 13:17:01 2020-10-23 23:59:00 Hospital Encounter Wilfred Ramos [facility] 1.2.840.114 350.1.13.10 4.2.7.2.686 [id number] [facility] 2020-10-23 00:00:00 2020-10-23 00:00:00 Outpatient R WILFRED RAMOS [facility] [id number] [facility] 2020-10-22 00:00:00 2020-10-22 00:00:00 Telephone Wilfred Ramos [facility] Office Building One 1.2.840.114 350.1.13.10 4.2.7.2.686 [id number] 044 [id number] [facility] 2020-10-21 16:00:05 2020-10-21 23:59:00 Hospital Encounter Wilfred Ramos [facility] 1..114 350.1.13.10 4.2.7.2.686 [id number] [facility] 2020-10-21 00:00:00 2020-10-21 00:00:00 Outpatient R RAMOSWILFRED [facility] [id number] [facility] 2020-10-21 00:00:00 2020-10-21 00:00:00 Telephone Wilfred Ramos [facility] Office [facility] One 1..114 350.1.13.10 4.2.7.2.686 [id number] 044 [id number] [facility] 2020-10-19 00:00:00 2020-10-19 00:00:00 Nurse Triage Heaven De [facility] 1..114 350.1.13.10 4.2.7.2.686 [id number] [id number] [facility] 2020-10-17 11:23:19 2020-10-17 11:43:19 Production Recorder Visit Lab, Adc [facility] Pob Nayeli Hurst [facility] One 1.114 350.1.13.10 4.2.7.2.686 [id number] 044 [id number] [facility] 2020-10-17 11:40:00 2020-10-17 11:40:00 Outpatient Canelo ROBERTO HURST [facility] [id number] [facility] 2020-10-17 00:00:00 2020-10-17 00:00:00 Telephone Richard [facility] One 1.114 350.1.13.10 4.2.7.2.686 [id number] 044 [id number] [facility] 2020-10-17 00:00:00 2020-10-17 00:00:00 Telephone Roberot Hurst [facility] Office Building One 1.114 350.1.13.10 4.2.7.2.686 [id number] 044 [id number] [facility] 2020-10-16 14:36:44 2020-10-16 15:13:20 Office Visit Richard Wlifred [facility] Office Building One 1.114 350.1.13.10 4.2.7.2.686 [id number] 044 [id number] [facility] 2020-10-16 14:45:00 2020-10-16 14:45:00 [facility] [id number] [facility] 2020-09-17 00:00:00 2020-09-17 00:00:00 Refill Richard Wilfred [facility] Office Building One 1.114 350.1.13.10 4.2.7.2.686 [id number] 044 [id number] [facility] 2020-09-10 15:00:00 2020-09-10 15:00:00 Outpatient R WILFRED RAMOS [facility] [id number] [facility] 2020-09-05 00:00:00 2020-09-05 00:00:00 Refill Richard [facility] Office Building One 1.114 350.1.13.10 4.2.7.2.686 [id number] 044 [id number] [facility] 2020-08-15 16:03:55 2020-08-15 16:18:55 Production Recorder Visit Pob, Adc Lab Main Jamie Guzmán [facility] Building 1.114 350.1.13.10 4.2.7.2.686 [id number] [facility] 2020-08-15 15:45:00 2020-08-15 15:45:00 Outpatient R JAMIE GUZMÁN [facility] [id number] [facility] 2020-08-12 00:00:00 2020-08-12 00:00:00 Refill Richard [facility] Office Building One 1.114 350.1.13.10 4.2.7.2.686 [id number] 044 [id number] [facility] 2020-08-01 14:28:15 2020-08-01 16:57:50 Office Visit Jamie Guzmán [facility] Building 1.114 350.1.13.10 4.2.7.2.686 [id number] [facility] 2020-08-01 14:30:00 2020-08-01 14:30:00 Outpatient R JAMIE GUZMÁN [facility] [id number] [facility] 2020-08-01 00:00:00 2020-08-01 00:00:00 Orders Only Doctor Unassigned, [facility] 1.114 350.1.13.10 4.2.7.2.686 [id number] [id number] [facility] 2020-05-23 00:00:00 2020-05-23 00:00:00 Refill Richard [facility] Office Building One 1.114 350.1.13.10 4.2.7.2.686 [id number] 044 [id number] [facility] 2020-05-11 00:00:00 2020-05-11 00:00:00 Francisco Ramos [facility] Office Building One 1.114 350.1.13.10 4.2.7.2.686 [id number] 044 [id number] [facility] 2020-04-17 00:00:00 2020-04-17 00:00:00 Telephone Wilfred Ramos [facility] Building 1.2.840.114 350.1.13.10 4.2.7.2.686 [id number] 044 [id number] [facility] 2020-04-16 14:15:00 2020-04-16 23:59:00 Hospital Encounter Wilfred Ramos [facility] 1.2.840.114 350.1.13.10 4.2.7.2.686 [id number] [facility] 2020-04-16 13:28:41 2020-04-16 13:43:41 Office Visit Wilfred Ramos [facility] Building 1.2.840.114 350.1.13.10 4.2.7.2.686 [id number] 044 [id number] [facility] 2020-04-16 13:30:00 2020-04-16 13:30:00 Outpatient R WILFRED RAMOS [facility] [id number] [facility] 2020-04-16 00:00:00 2020-04-16 00:00:00 Orders Only Doctor Unassigned, [facility] 1.2840.114 350.1.13.10 4.2.7.2.686 [id number] [id number] [facility] 2020-04-14 00:00:00 2020-04-14 00:00:00 Jamie Wright [facility] Building 1.2840.114 350.1.13.10 4.2.7.2.686 [id number] [facility] 2020-02-19 00:00:00 2020-02-19 00:00:00 Telephone Wilfred Ramos [facility] Office Building One 1.2840.114 350.1.13.10 4.2.7.2.686 [id number] 044 [id number] [facility] 2020-02-18 00:00:00 2020-02-18 00:00:00 Refill Jamie Guzmán [facility] Building 1.2.840.114 350.1.13.10 4.2.7.2.686 [id number] [facility] 2020-02-11 12:41:00 2020-02-11 13:11:00 Office Visit Wilfred Ramos [facility] Building 1.20.114 350.1.13.10 4.2.7.2.686 [id number] 044 [id number] [facility] 2020-02-11 12:30:00 2020-02-11 12:30:00 [facility] [id number] [facility] 2020-02-11 00:00:00 2020-02-11 00:00:00 Refill Richard [facility] Office Building One 1.20.114 350.1.13.10 4.2.7.2.686 [id number] 044 [id number] [facility] 2020-02-05 00:00:00 2020-02-05 00:00:00 Telephone Wilfred Ramos [facility] Office Building One 1.2840.114 350.1.13.10 4.2.7.2.686 [id number] 044 [id number] [facility] 2020-01-30 15:00:00 2020-01-30 15:00:00 Outpatient R ROSIO WILLIAMSON [facility] [id number] [facility] 2020-01-30 14:14:49 2020-01-30 14:29:49 Telemedici ne Visit Rosio Williamson [facility] Building 1.2840.114 350.1.13.10 4.2.7.2.686 [id number] 044 [id number] [facility] 2020-01-25 09:39:29 2020-01-25 14:29:43 Telemedici ne Visit Jamie Guzmán [facility] Building 1.2.840.114 350.1.13.10 4.2.7.2.686 [id number] [facility] 2020-01-25 13:30:00 2020-01-25 13:30:00 Outpatient R JAMIE GUZMÁN [facility] [id number] [facility] 2020-01-03 00:00:00 2020-01-03 00:00:00 Refill Jamie Guzmán [facility] Building 1.2.840.114 350.1.13.10 4.2.7.2.686 [id number] 220 [id number] [facility] 2019-12-31 00:00:00 2019-12-31 00:00:00 Refill Jamie Guzmán [facility] Building 1.2.840.114 350.1.13.10 4.2.7.2.686 [id number] 220 [id number] [facility] 2019-11-13 00:00:00 2019-11-13 00:00:00 Refill Richard [facility] Office Building One 1..840.114 350.1.13.10 4.2.7.2.686 [id number] 044 [id number] [facility] 2019-05-23 00:00:00 2019-05-23 00:00:00 Refill Richard [facility] Office Building One 1.2.840.114 350.1.13.10 4.2.7.2.686 [id number] 044 [id number] [facility] 2019-05-17 00:00:00 2019-05-17 00:00:00 Jamie Navarro [facility] Building 1.2.840.114 350.1.13.10 4.2.7.2.686 [id number] 220 [id number] [facility] Results Test Description Test Time Test [...] at the origin of SMA and JERROD. [facility] Hemoglobin A1C Gceu1510-63-27 19:37:00* Test Item Value Reference Range Interpretation Comme [facility] POCT HBA1C (test code = 4548-4) 10.5 % 4-6 A Lab Interpretation (test cod e = 75389-5) Abnormal [facility] Hemoglobin A1C [id number] 19:37:00* Test Item Value Reference Range Interpretation Comme [facility] POCT HBA1C (test code = 4548-4) 10.5 % 4-6 A Lab Interpretation (test cod e = 52420-0) Abnormal [facility] HEMOGLOBIN A1C [id number] 20:23:00* Test Item Value Reference Range Interpretation Comme [facility] POCT HBA1C (test code = 4548-4) 9.5 % 4-6 A Lab Interpretation (test cod e = 58903-3) [facility] [id number] 20:23:00* Test Item Value Reference Range Interpretation Comme nts POCT HBA1C (test code = 4548-4) 9.5 % 4-6 A Lab Interpretation (test cod e = 27125-4) Abnormal [facility] Notes Date/Time Note Provider Source 2024-04-03 16:08:57 5286-60-17Y73:08:57 Called the DOP and notified her of the PA being done 21627-5Avqzzpqta encounter CtnuSJ6060-09-65B33:09:24Telephone encounter NoteTXT1.2.840.677971.1.13.104.2.7 .2.713902|[id number] for patient hzei15013-0UitrXVPIFAJOWLKIitdfxxc d C-CDA narrative text[address] MbfwYmnjqnlvvJqmuyiykmCNPA34930813 07FGPWMFURGPFTUARCWKZVQH0625-84-49 T16:09:241.2.840.892950.1.72.3.15| 1.2.840.979321.1.13.104.2.7.2.7278 [id number] [facility] 2024-04-03 14:41:49 9143-32-48U36:41:49 Per office note:Diagnosis:1. Type 2 diabetes mellitus without complication, with long-term current use of insulin2. 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3. Essential hypertensionDecrease insulin dose to 12 units bidFollow up: one monthPatient Care Team:Rosio Williamson MD as PCP - General (-FAMILY MEDICINE) 02822-8Qtpelqwss encounter DppiYG6152-55-10Z81:42:06Telephone encounter NoteTXT1.2.840.163756.1.13.104.2.7 .2.933548|[id number] for patient haxk43145-8CmhxDLQOZQTUEPJSvngrnbr d C-CDA narrative hqfr094132647Aypkvz J Medina [address]TXTX[address] 87ZRMSXTTJRDCCLCUKWVJWBI4173-21-77 T14:42:061.2.840.992055.1.72.3.15| 1.2.840.835424.1.13.104.2.7.2.7278 [id number] Brittany Lees [facility] 2024-04-03 09:47:48 5857-91-88N01:47:48 Patient is being seen by Dr. Williamson this afternoon. Can update once appointment notes are completed. 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 With a low number in the morning and then increasing.When seeing the pt today she had blood sugar at 54 and took a glaucous tablet. The last time they checked the blood sugar was at 164 today. The pt had no other symptoms to report.Ino is asking for a call back to get clarification on the pts medication and then can relay the information to the pt. Yjkuylmsiiampl signed by Damaris Henry at 04/03/2024 9:42 AM IJI78696-3Rgcuiuewm encounter TmpjYZ5184-10-03V40:42:03Telephone encounter NoteTXT1.2.840.939944.1.13.104.2.7 .2.070377|[id number] for patient rmbr02439-2TpkvCYFPHHNVSYOTgesgawr d C-CDA narrative erlf54014300Iuqdqzp [address]TXTX[address] 71SXJINEZQDOHRHQYZKDMMNR4276-93-87 T09:42:031.2.840.462766.1.72.3.15| 1.2.840.063701.1.13.104.2.7.2.7278 [id number] [facility] 2024-04-02 15:39:14 2010-63-90W89:39:14 Kierra Sweeney is a 88 year old female. Receive fax from [facility] requesting PACory For Levemir inj Qty 10.000 29 days supply this is a Non-Formulary . 02713-9Mqwupxowf encounter LqcmYM0644-15-64P17:41:27Telephone encounter NoteTXT1.2.840.144339.1.13.104.2.7 .2.493711|[id number] for patient bopp47598-0LuqaRFLKWNOHKISJbxzsfdq d C-CDA narrative hqpu726200182Ivrmbq W Johnson-Gray[address]TXTX[address] 23QFTLGPNWEHLQTQBEMCNJMD1917-90-29 T15:41:271.2.840.919011.1.72.3.15| 1.2.840.270984.1.13.104.2.7.2.7278 [id number] Jacy Rao [facility] 2024-04-02 14:27:30 0884-42-67P94:27:30 Notified patients daughter that prescription for Dexcom was sent to pharmacy. Also informed patients daughter that MD confirmed Sig and patient should take levemir as prescribed below. Daughter verbalizes understanding. Patient will be at appointment tomorrow.insulin detemir U-100 100 unit/mL injection Take 20 units in the morning and 12 units at bedtime E11.65 80499-3Yajoqvjat encounter QhehRF5665-43-55Q52:28:50Telephone encounter NoteTXT1.2.840.030051.1.13.104.2.7 .2.573893|0073791918MIFkvslqbui for patient cbfo96635-0JlzfVUCSIWVPVXVDpdpkipa d C-CDA narrative pojl984831602Jkergx Berg[place] RN[address]TXTX[address] 43MATJSSNWGYTGIMJYDAUBIK2754-16-99 T14:28:501.2.840.308754.1.72.3.15| 1.2.840.940895.1.13.104.2.7.2.7278 79_[id number] Madelaine Arroyo RN [facility] 2024-04-02 14:01:10 2425-06-35C64:01:10 Go back to 20 and 12 99796-0Chvmtyrmu encounter RnpuKV4085-57-44L31:01:49Telephone encounter NoteTXT1.2.840.991519.1.13.104.2.7 .2.749038|8732742056AOVqwdsqudu for patient epnn93986-4KsxsJQEGCGESAQTArktokgs d C-CDA narrative text[address]vestonTXTX[address] 69XWNRABYIHENFRVHEAWLOPY8153-60-53 T14:01:491.2.840.628085.1.72.3.15| 1.2.840.762746.1.13.104.2.7.2.7278 79_[id number] [facility] 2024-04-02 13:51:55 3168-24-19F39:51:55 Can you confirm the dose of levemir and instructions? Patient has been taking 34 units once daily and not what is indicated on last prescription. 93302-2Anpyahjtu encounter MxuxTA5194-76-33Y41:52:56Telephone encounter NoteTXT1.2.840.769903.1.13.104.2.7 .2.538512|[id number] for patient ycvb30981-1NkjaBNNNQKKURZDBysddsxg d C-CDA narrative textRentersQ[address] StreetItmlXyixawkxbVicjbzdzwIGWD15123296 64NQNPHBIVRIDNBFAABJXOTL1068-54-61 T13:52:561.2.840.847759.1.72.3.15| 1.2.840.921929.1.13.104.2.7.2.7278 79_[id number] [facility] 2024-04-02 11:36:16 2297-61-68X23:36:16 Patients daughter states that her mother's blood sugar readings have been dropping very low in the mornings and then shooting up high during the day. Daughter states a couple mornings ago her BG was 44. This AM, 04/02/24, it was 62. Patient was recently in hospital and she was on a fast acting insulin and the daughter states she had no issues. Patient is currently on levemir but daughter states she has been taking it all in one dose. States she takes 34 units in the daytime.Prescribed is levemir 20 units in the morning and 12 units at bedtime.Daughter would also like to see about getting Freestyle or dexcom that will rad to her phone and alert her when patients sugar drops.Patient is seeing Dr. Williamson in office tomorrow but needs clarification on insulin and if change needs to be made.Please review and advise. 43712-2Tdnmrjjsn encounter WhjoXC7210-36-14X68:39:49Telephone encounter NoteTXT1.2.840.894877.1.13.104.2.7 .2.587307|9892017847RBCfobritnu for patient vhnz80690-9ZryrSUUPYRSRGNGTbtduole d C-CDA narrative text[address] SjyvSuxbtkgmsOvnmobpedHYBN56292193 20OCHBYRUJBXWQAXJXCDSNDL1932-51-04 T11:39:491.2.840.461985.1.72.3.15| 1.2.840.709994.1.13.104.2.7.2.7278 79_[id number] [facility] 2024-04-02 10:06:25 8757-90-06K42:06:25 Pt daughter is calling to speak with someone in the clinic. States the pt's sugar levels keep dropping and would like to discuss.Elizabeth Dior 04/02/2024 10:07 AM 05371-1Jzfmxvtnd encounter UoefMH4895-02-72O59:07:35Telephone encounter NoteTXT1.2.840.496696.1.13.104.2.7 .2.028303|1690550580HXNfrnqgalb for patient oowg90291-6VhxzSBGREBJXTTZPyldfgra d C-CDA narrative uglj44286788Svaxrga A Perez[address]TXTX[address] 25SOGVJIKASWPSTKXWGQFVJR1501-00-75 T10:07:351.2.840.082300.1.72.3.15| 1.2.840.880931.1.13.104.2.7.2.7278 79_[id number] Elizabeth Dior [facility] 2024-03-22 15:48:55 9816-12-45T65:48:55 [place] [address]-9Roeisapkk encounter SfzaNZ5905-66-80P70:49:02Telephone encounter NoteTXT1.2.840.350157.1.13.104.2.7 .2.789386|8199247849VPBgkixeljo for patient cjxy77058-7ZxvaSXHNDKOYBPXIkhbaezy d C-CDA narrative text[address]TXTX[address] 11HHMDJEHFLRHAJZMLHYXWDX9847-79-97 T15:49:021.2.840.160709.1.72.3.15| 1.2.840.437740.1.13.104.2.7.2.7278 79_[id number] [facility] 2024-03-22 15:24:56 3922-60-74E12:24:56 Returned call to paddy no answer , left a V/M advising Dr. Ramos will sign orders 20290-9Tscabwpap encounter RmhqLA3907-34-87F19:25:47Telephone encounter NoteTXT1.2.840.736598.1.13.104.2.7 .2.741460|3223892193ZLQtlhapyxl for patient vxwj28216-6DtrnDWLHBYRJSCKTjehqeko d C-CDA narrative qbko924910361Saelmyc R Leon MA[address]TX[address] 65WCQVSHRLLAIDXIYOTODWWB6213-83-40 T15:25:471.2.840.567958.1.72.3.15| 1.2.840.686754.1.13.104.2.7.2.7278 [id number] Susan Padgett MA [facility] 2024-03-22 13:48:22 4677-00-25Y32:48:22 Kierra Sweeney is a 88 year old female and Caryl a PT with [facility] is calling for orders on the pt. She stated she will be sending over orders through [facility] that need to be reviewed and signed.Pt had PT evaluation today and will be doing PT for strength and endurance for 1 visit a week for 3 weeks. 30664-9Ixxdnoiyn encounter ClmlXX7694-63-26S68:51:47Telephone encounter NoteTXT1.2.840.045967.1.13.104.2.7 .2.558405|[id number] for patient asss58527-5LnecAEAYODKUQKKAsdlaoav d C-CDA narrative [id number] S Dally[id number] 79ETZNKMPPZLQLXTYJXYZCSF5477-11-78 T13:51:471.2.840.328836.1.72.3.15| 1.2.840.200248.1.13.104.2.7.2.7278 [id number] Damaris Henry [facility] 2024-03-22 06:21:01 2373-03-71P18:21:01 [place] [address]-5Xnqclyepi encounter CetcMG8293-89-37P03:21:12Telephone encounter NoteTXT1.2.840.684976.1.13.104.2.7 .2.383835|[id number] for patient weoa46035-0FsczQXZVCNNOLZXZwxxhgzp d C-CDA narrative [address] K[id number] 85BHNFXPQAQQXALDEOMCLOMZ1658-45-72 T06:21:121.2.840.103778.1.72.3.15| 1.2.840.582284.1.13.104.2.7.2.7278 [id number] [facility] 2024-03-21 19:46:04 8031-35-94C48:46:04 Kierra Sweeney is a 88 year old femaleChelsea is calling to ask for to sign off on Home health orders for Pt.Also reporting that during visit BGR was 264Pt blood sugar high due to only eating bananas and pudding todayPlease advise 00757-9Rtmedbtnz encounter DbsxNZ5814-03-89D51:52:10Telephone encounter NoteTXT1.2.840.073617.1.13.104.2.7 .2.242701|[id number] for patient efgt36872-3GnynUEMUVQFOKFMJzhzfsde d C-CDA narrative [id number] Damian KristalJohn[id number] 99VZNIOZTNKEZSZSZRUXGQJB0660-46-91 T19:52:101.2.840.160843.1.72.3.15| 1.2.840.300332.1.13.104.2.7.2.7278 [id number] Paicience Damian Acosta [facility] 2024-03-20 10:45:45 1254-86-13Q22:45:45 Notified Yaima with [facility] [facility] Ramos will follow patient for HH.She verbalized understanding. 19828-6Trnrmhhqk encounter OlxaIE1100-97-08S15:46:17Telephone encounter NoteTXT1.2.840.470958.1.13.104.2.7 .2.474190|9287169067DVEmmvjdrzw for patient stde59172-7ZushBAPECUFUUAZKuajzhex d C-CDA narrative text[address]TXTX[address] 16FRMRSNXKNKIULLPTKHDPHT3040-68-55 T10:46:171.2.840.972165.1.72.3.15| 1.2.840.860982.1.13.104.2.7.2.7278 79_[id number] [facility] 2024-03-20 10:38:28 4775-47-09P11:38:28 [place] [address]-0Dxanarepf encounter YxcbAY7689-22-23A78:38:34Telephone encounter NoteTXT1.2.840.331391.1.13.104.2.7 .2.868447|7678999433JDVuhibwetd for patient qfvw45306-2GyxhQFRVBAQKWGQGikbeoow d C-CDA narrative text[address] 30UVKCMCTYOXHAOCBHMABUZZ8094-78-75 T10:38:341.2.840.242027.1.72.3.15| 1.2.840.224784.1.13.104.2.7.2.7278 79_[id number] [facility] 2024-03-20 09:55:22 7907-17-08C76:55:22 Kierra Sweeney is a 88 year old female and Yaima a nurse with [facility] is calling to ask if Dr. Ramos would follow the pt through their HH care orders.Yaima stated that the pt was recently at the [facility] and received orders for HH. Ygapcheoxfamzb signed by Damaris Henry at 03/20/2024 9:58 AM RXA27677-9Bdosnehvd encounter UqfeNR6909-64-46D90:58:34Telephone encounter NoteTXT1.2.840.608926.1.13.104.2.7 .2.403224|0324250644UMRscfjevzn for patient vvkx66470-6YnyyRZDDUTUVWPLTtgeqjih d C-CDA narrative wevk47395764Uomkzrw [address] LbgtNzurzqwgrAevfwgtooNLEA69212034 16HLOMPNQXUZZOSYKDVYPSTW1986-68-04 T09:58:341.2.840.500392.1.72.3.15| 1.2.840.553106.1.13.104.2.7.2.7278 79_[id number] Damaris Henry [facility] 2024-03-19 13:03:17 9040-03-28L15:03:17 Patients son is calling in to update Dr. Ramos that insurance will not cover Rx insulin detemir U-100 100 unit/mL injection as well patient is requesting a refill for HYDROcodone-acetaminophen 7.5-325 mg per tablet . 21577-4Rzjsmplfa encounter VlecVL1915-22-57R39:05:23Telephone encounter NoteTXT1.2.840.711630.1.13.104.2.7 .2.643425|2668252108MKHopgrvyoq for patient qycw52119-3BcviARBNELBHMIDPgitftrt d C-CDA narrative text[address]TXTX[address] 45MYETGXVVXEETUXQQQEQTCN2270-69-57 T13:05:231.2.840.352466.1.72.3.15| 1.2.840.687504.1.13.104.2.7.2.7278 79_[id number] [facility] 2024-03-17 12:59:02 8746-21-05Y48:59:02 Received radiology services report from [facility], have placed in provider's box and loaded into patients chart. 87223-8Auajgxzdb encounter PjcfXE3610-86-98C70:59:28Telephone encounter NoteTXT1.2.840.960779.1.13.104.2.7 .2.784376|1356771340JUJyuxewarh for patient tqtq19365-4NauwWJDQSRWPKUEJgqjbkud d C-CDA narrative gyll008139436Pfhooohf M RodriguezUT[address]TXTX[address] 99TQSIHAIJYVLBXJRLZAAOKV3594-05-50 T12:59:281.2.840.070123.1.72.3.15| 1.2.840.860478.1.13.104.2.7.2.7278 79_[id number] Rosario Gates Andrew [facility] 2024-03-15 14:30:00 0101-86-46L16:30:00Addended by: MARZENA BARRIGA on: 03/15/2024 02:20 PMModules accepted: Orders 28669-8Xcyrcswz NinsaonkCM1308-64-18O47:20:30Adden dum DocumentTXT1.2.840.659386.1.13.104 .2.7.2.150512|[id number] e for patient nquv27807-3OzubVBIYZNAXXXVIrplacbr d C-CDA narrative textUT[address] StreetTXTX[address]75 05TNXSTFGTBDJAHENOQDMJSG8852-17-70 T14:20:301.2.840.985351.1.72.3.15| 1.2.840.770304.1.13.104.2.7.2.7278 79_[id number] [facility] 2024-02-21 10:26:41 0273-45-04C11:26:41 Received radiology report scanned into pts chart and placed in providers basket. 40444-8Vszpfasdq encounter EntvVK8784-72-19G23:28:45Telephone encounter NoteTXT1.2.840.266035.1.13.104.2.7 .2.175209|0558188588SACqlzzliol for patient gypz94744-8AyvgYKTHAWDPDVYHxibfytj d C-CDA narrative aamx831024471Cyyyjs [address]TXTX[address] 20KQIWFRSQWDQJELFYVYGWBY3313-67-46 T10:28:451.2.840.250380.1.72.3.15| 1.2.840.194701.1.13.104.2.7.2.7278 79_[id number] Rubi Mackey [facility] 2024-02-13 14:30:57 2471-16-09H76:30:57 Images from the original note were not [...] months ago (12/01/2023) by Kendra Mcgee refill: 4Rx #: [id number] Substance Bfzuzj8902/13/2024 02:18 PMProtocol Details Valid encounter within last 3 monthsPain agreement on fileThis refill cannot be delegatedTo be filled at: [place], [place] - [address] VisitsDate Type Provider Dept01/12/24 Office Visit Anju [...] Med02/24/23 Office Visit Wilfred Ramos MD Ang-Db [facility] Med01/05/23 Office Visit Wilfred Ramos MD Ang-Db [facility] Med12/16/22 Office Visit Wilfred Ramos MD Ang-Db [facility] Med11/25/22 Office Visit Wilfred Ramos MD Ang-Db [facility] MedShowing recent visits within past 540 days with a meds authorizing provider and meeting all other requirementsFuture AppointmentsDate Type Provider Dept03/15/24 Appointment Wilfred Ramos MD Ang-Db [facility] MedShowing future appointments within next 150 days with a meds authorizing provider and meeting all other requirements 23141-2Gkmfyhsyv encounter FfpfBH2235-87-24M64:31:07Telephone encounter NoteTXT1.2.840.484771.1.13.104.2.7 .2.257111|0818075247RZQhbfkkrhw for patient fpgx55460-8RffiEQGNRWIEDPLQspcpgym d C-CDA narrative text[address] FvrxWivajlzzzMymzxaowaQCEB21981618 88MPKITYCKRUBGKJQTGDHTWG5961-16-28 T14:31:071.2.840.814001.1.72.3.15| 1.2.840.168164.1.13.104.2.7.2.7278 79_[id number] [facility] 2024-01-11 12:33:00 6614-82-18O69:33:00 Regarding: dizzy, blurred vision, pain and numbness in feet----- Message from Damaris Henry sent at 01/11/2024 12:32 PM CDT -----Kierra Sweeney is a 88 year old female 38738-3Dgskvwmfp encounter ZtxtCW3524-95-01X04:33:03Telephone encounter NoteTXT1.2.840.467437.1.13.104.2.7 .2.047670|9211746336ABZkxihxtsu for patient gitj64052-9YkxjSXBXTLNFYINHoeovxpu d C-CDA narrative jqeu321225951Vqclfjwan Burk RNUTMBCROWNPOINT [facility] - [address] CwrxPiqgcfqyuDclrbawdsNJNI39980651 75CQOKBOQXEPTTKYCANTAQVI4539-73-88 T12:33:031.2.840.631645.1.72.3.15| 1.2.840.088248.1.13.104.2.7.2.7278 79_[id number] Vanessa Colvin RN [facility] 2024-01-11 12:33:00 3347-26-23A51:33:00 Adult Triage AssessmentLast Clinic Visit: 11/14/23 - [facility] for DiverticulitisPrimary Symptom: pain and numbness in [...] AND present > 4 weeks)Protocols used: Neurologic Kpfmoxg-AEGLR-AWRzvz made with PCP clinic for tomorrow due to increased neuropathy pain. Call back advice given, patient V/U.DICK Alarcon, RNUniversity [facility] 50753-5Pegtlfhtq encounter MkgxDZ6352-33-08X16:56:59Telephone encounter NoteTXT1.2.840.311236.1.13.104.2.7 .2.985001|9127057403LUAgfsbvhzf for patient bklb41895-5UbmoSXZKXBFACRBEhcdnhse d C-CDA narrative [address] 41YHCECYEDNXDTJWOGZARNNV6765-48-70 T12:56:591.2.840.814310.1.72.3.15| 1.2.840.694097.1.13.104.2.7.2.7278 79_[id number] [facility] 2023-12-22 09:00:02 3688-37-45X18:00:02 Attempted to contact patient. No answer. Left message to call back.Kierra Sweeney (Minaya: [phone])ARMANDO Help? Call us at Statussent iconSent to Plan todayDrugHYDROcodone-Acetaminophen 7.5-325MG tabletsePA wind[facility] area hospitaloFormWellCare Medicare Electronic Prior Authorization Request Form (2016 NCPDP) 13120-8Kcrgthhoi encounter VjqzCU8534-93-78N33:00:10Telephone encounter NoteTXT1.2.840.227705.1.13.104.2.7 .2.900496|1101393126TLUrrvuftdb for patient bzcw10391-7TlbbLGEJAQGCPVDBsorqezz d C-CDA narrative [address]TXTX[address] 94ZHSOYJBHPHMWEKXCKPUUXJ2185-44-10 T09:00:101.2.840.919053.1.72.3.15| 1.2.840.109960.1.13.104.2.7.2.7278 79_[id number] [facility] 2023-12-20 16:41:56 0676-83-28K37:41:56 Kierra Sweeney is a 88 year old female whose daughter is calling because HYDROcodone-acetaminophen 7.5-325 mg per tablet requires a prior authorization for insurance. The pharmacy has told the pt's daughter that they have faxed the PA to the clinic.Please advise.[place], [place] - [address] [place] [address]Vlxxz: [phone] Cfkqxzxjjmhgyq signed by Melissa Patel at 12/20/2023 4:44 PM ULQ56062-3Qqujulmim encounter GtxdEF3817-95-31E76:44:41Telephone encounter NoteTXT1.2.840.331386.1.13.104.2.7 .2.485274|0233572382ZILnpkkvtjb for patient zcwt67589-4ZfvfTVBSERIRKQTJljgukac d C-CDA narrative vezk422751643Qhsy Jrab[address] DtlsEchovujcdHpmeafsltJKWM53484798 65XFDEFVAXKTOWZAEUQTYWLH3313-08-89 T16:44:411.2.840.043690.1.72.3.15| 1.2.840.231579.1.13.104.2.7.2.7278 79_[id number] Melissa Patel [facility] 2023-12-08 16:08:54 3925-90-53B17:08:54 Last Refilled:lisinopriL 20 mg tablet 90 tablet 0 09/21/2023 -- --Sig: Take 1 tablet by mouth in the morning.Sent to pharmacy as: lisinopriL 20 mg tablet (PRINIVIL,ZESTRIL)Class: eRXRoute: OralOrder: [id number]/Time Signed: 09/21/2023 13:12E-Prescribing Status: Receipt confirmed by pharmacy (09/21/2023 1:15 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)Recent VisitsDate Type Provider Dept11/14/23 Office Visit Rosio Williamson MD Ang-Db [facility] Med10/05/23 Office Visit Wilfred Ramos MD AngHermanDb [facility] Med09/21/23 Office Visit Wilfred Ramos MD AngHermanDb [facility] Med04/20/23 Office Visit Wilfred Ramos MD Ang-Db [facility] Med03/10/23 Office Visit Wilfred Ramos MD Ang-Db [facility] Med02/24/23 Office Visit Wilfred Ramos MD Ang-Db [facility] Med01/05/23 Office Visit Wilfred Ramos MD Ang-Db [facility] Med12/16/22 Office Visit Wilfred Ramos MD Ang-Db [facility] Med11/25/22 Office Visit Wilfred Ramos MD Ang-Db [facility] Med10/25/22 Office Visit Wilfred Ramos MD Ang-Db [facility] Fam MedShowing recent visits within past 540 days with a meds authorizing provider and meeting all other requirementsFuture AppointmentsNo visits were found meeting these conditions.Showing future appointments within next 150 days with a meds authorizing provider and meeting all other requirements 82402-6Hplbzawih encounter PakkNV3131-40-61O53:10:17Telephone encounter NoteTXT1.2.840.270904.1.13.104.2.7 .2.492661|3939609524VFUhcevpybb for patient qgsc31391-5PvddUQIUEYVCVFSDsinldst d C-CDA narrative zjnf744069629Wukgvz Myers[address] WpnmQnsqqemztSgenofawbFYCX50057732 61FINCPJZXZEPARLKPTBYKCM3154-38-49 T16:10:171.2.840.330516.1.72.3.15| 1.2.840.482210.1.13.104.2.7.2.7278 79_[id number] Marzena Barriga [facility] 2023-12-01 09:45:20 5266-15-32Q25:45:20 Images from the original note were not included.Notes: 11/22/22Last Refilled:[facility], [place] - [address]Phone: Abkwcg VisitsDate Type Provider Dept11/14/23 Office Visit Rosio [...] (09/21/2023) by Kendra Mcgee refill: 09/21/2023Rx #: [id number] Substance Yhfxic0112/01/2023 09:44 AMProtocol Details Valid encounter within last 3 monthsPain agreement on fileThis refill cannot be delegatedTo be filled at: [facility], [place] - [address] [address]-0Ekvploxgb encounter BiqeFP3591-98-43B89:45:39Telephone encounter NoteTXT1.2.840.931082.1.13.104.2.7 .2.321605|9359697314OWEbdtnpdyp for patient vhks05069-4XhrqVNWVRANOIFBGkxazlyo d C-CDA narrative sewa139151275Uztwug L Cantu [address]GalvestonTXTX[address] 19KYKSNTEADXGMNGPDUVAVMM5613-08-84 T09:45:391.2.840.332594.1.72.3.15| 1.2.840.152992.1.13.104.2.7.2.7278 79_[id number] Faiza Shukla [facility] 2023-11-28 13:49:09 8011-58-49D69:49:09 Attempted to reach DOP no answer left a V/M 16900-5Iqffuzrlj encounter UzuoBQ0750-94-83X92:49:31Telephone encounter NoteTXT1.2.840.551622.1.13.104.2.7 .2.586604|1024058657MYSrxhujxvg for patient pzor92595-1YrlsHYAWCVZBQDKBhvdwmnw d C-CDA narrative xjet251718787Xqkubar R Leon [address] 61WBFACVXESTHUKVQOVTKQZK5987-27-76 T13:49:311.2.840.974576.1.72.3.15| 1.2.840.088227.1.13.104.2.7.2.7278 79_[id number] Susan Padgett [facility] 2023-11-28 11:59:40 2229-44-53L99:59:40 She should be done with these. How is she doing? 47372-6Wxehlywwc encounter MfdmBG6988-65-65B18:00:12Telephone encounter NoteTXT1.2.840.183928.1.13.104.2.7 .2.183407|3943121134FEPveuewtoo for patient difa31876-8IdanZZCTALHVJKRUtuzenee d C-CDA narrative text[address]TXTX[address] 36TNFFJKEPQEJDAPYEKPDZTN8880-08-75 T12:00:121.2.840.407339.1.72.3.15| 1.2.840.810068.1.13.104.2.7.2.7278 79_[id number] [facility] 2023-11-28 07:50:36 1702-81-32Z73:50:[address] Ramos patient 58097-2Nuzgzfjtn encounter IidhLK2143-33-69K53:51:08Telephone encounter NoteTXT1.2.840.342477.1.13.104.2.7 .2.263349|8728858365WIJcklkssyk for patient wplc75662-6FlhmJTKHSLNAQITNeacscdo d C-CDA narrative text[address]TXTX[address] 07RLTJCIYIRQGHEZTAAEIQXF7213-95-01 T07:51:081.2.840.784447.1.72.3.15| 1.2.840.953361.1.13.104.2.7.2.7278 79_[id number] [facility] 2023-11-25 11:44:12 5292-16-12A71:44:12 Please review and advise. 01988-2Gqfntemun encounter BesaWQ4279-40-32K17:44:34Telephone encounter NoteTXT1.2.840.795770.1.13.104.2.7 .2.136298|9210155513BSBgosxtqsr for patient svac76268-3RwnpNFTMUKXOPWYFiiirvog d C-CDA narrative euon908010802Gpqvjp L Cantu [address] 75MXJLGAYWYPJOIOSCHIECJF0370-46-66 T11:44:341.2.840.373267.1.72.3.15| 1.2.840.794759.1.13.104.2.7.2.7278 79_[id number] Faiza Shukla MA [facility] 2023-11-25 11:20:27 0731-46-49X57:20:27 Patient's daughter "Cami"called stating the medication's that Dr. Williamson prescribe her mom "Kierra "on 11/14 it's causing her to feel sick. She's requesting an alternative for the following meds. Please contact Cami by phone or Mychart.Cami phone number: [phone] HCl (CIPRO) 500 mg tabletmetroNIDAZOLE (FLAGYL) 500 mg tablet 80103-4Nnzfsvvma encounter UrotHB1170-02-71F42:34:55Telephone encounter NoteTXT1.2.840.950138.1.13.104.2.7 .2.541458|5954230686HGGhjmraqyx for patient aegp86497-1DfmiZIKGOGWLVSIHuxoqbpm d C-CDA narrative omyt431534275Lmqfqqyxn [address]endia[address]TXTX[address] 61UKUDFQHGSCXTOBIWSCMHBS2948-28-90 T11:34:551.2.840.331243.1.72.3.15| 1.2.840.793294.1.13.104.2.7.2.7278 79_[id number] Karis Hatch [facility] 2023-06-20 08:19:12 4849-97-98H44:19:12 Images from the original note were not included.Last Refilled: 05/16/23Notes: [place], [place] - [address]: Zfmfin VisitsDate Type Provider Dept 04/20/23 Office Visit [...] 02/25/22 Office Visit Wilfred Ramos MD Ang-Db [facility] Med Showing recent visits within past [...] Ramos MD Last refill: 05/16/2023 Rx #: [id number] Controlled Substance Failed 06/18/2023 10:04 AM Protocol Details Valid encounter within last 3 months Pain agreement on file This refill cannot be delegated To be filled at: [place], [place] - [address] [facility] [address]-4Wkalxvtrq encounter LrnmHZ7159-92-64S30:19:40Telephone encounter NoteTXT1.2.840.721437.1.13.104.2.7 .2.737814|6537885138ZHCmsqiqzdk for patient twfa55935-6EajxXP743239227Yoofko L Cantu [address] JnbqQgebxtwcrZbqybzfmyVAYI56652390 38TRYOYUAAGEUBREJVLROYXZ2893-31-90 T08:19:401.2.840.753523.1.72.3.15| 1.2.840.742969.1.13.104.2.7.2.7278 79_[id number] Faiza Shukla MA [facility] 2023-05-17 16:17:22 7735-77-55M88:17:22 Sent prescription for accu-chek 35839-0Ooybknllv encounter PhqdQT8377-86-91W51:18:23Telephone encounter NoteTXT1.2.840.726309.1.13.104.2.7 .2.803368|6524655374CKUbdwcefxf for patient efst83038-6TxujSS306149282Qlhn D Jetton [address]onGalvestonTXTX[address] 61TFTRYWDYYNBBYKBZVEYICX8801-64-90 T16:18:231.2.840.411569.1.72.3.15| 1.2.840.277165.1.13.104.2.7.2.7278 79_[id number] Kia Perry [employer] TECHNICIAN [facility] 2023-05-17 15:47:18 1517-68-58L16:47:18 Images from the original note were not included. 94976-7Lhckxwikp encounter StcgXY0296-24-07C85:47:42Telephone encounter NoteTXT1.2.840.189573.1.13.104.2.7 .2.826570|5255758683SBPplfgffaq for patient uugv48845-4ZkszWE375496055Swfpxm M [address] 12BNEKTGMTYSJVGLFMSYDZZK9856-77-42 T15:47:421.2.840.144767.1.72.3.15| 1.2.840.082965.1.13.104.2.7.2.7278 79_[id number] Stefanie Storey [facility] 2023-05-13 14:19:29 2198-28-69Y95:19:29 Patient daughter, Cami, called saying the HYDROcodone-ibuprofen 7.5-200 mg per tablet is on backorder. She's wanting to know if the medication could be switched to Hydrocodone with Tylenol. Please call. 92831-9Bijzvbqhz encounter HxjkSN1584-56-22O29:22:14Telephone encounter NoteTXT1.2.840.147560.1.13.104.2.7 .2.874164|1127049942CRQzmxnhkmw for patient ljsk47912-6LmqkZB669239623Zwgbc K [address] 05JAYPVJQIRSJQKOFLGOTFJF7185-25-38 T14:22:141.2.840.795565.1.72.3.15| 1.2.840.968270.1.13.104.2.7.2.7278 79_[id number] Yarely Montemayor [facility] 2023-04-27 15:07:27 3641-93-18X35:07:27 Forms were faxed on 04/26/2023 at 5pm. 65558-2Eeordbgnj encounter VhdpOZ2807-59-00Q72:07:53Telephone encounter NoteTXT1.2.840.502441.1.13.104.2.7 .2.514143|2355389168WSIpbbayrww for patient odlg558967408Rtqmtd J Medina [address]TXTX[address] 91KBAQJVFMGWUIGAGRQNZGXU0863-43-85 T15:07:531.2.840.799557.1.72.3.15| 1.2.840.735142.1.13.104.2.7.2.7278 79_[id number] Brittany Lees MA [facility] 2023-04-27 06:39:39 8213-52-16P09:39:39 I don't know about forms 50311-0Tsuovytia encounter XzztOK1911-29-79S18:40:03Telephone encounter NoteTXT1.2.840.937326.1.13.104.2.7 .2.739542|0033976063QMDgptpvdmy for patient [address] PouuUlhzyidejJotljrzylBQBH86753176 83RQEBBOMIOFPPOZUNYDTWXN8010-07-32 T06:40:031.2.840.061049.1.72.3.15| 1.2.840.513325.1.13.104.2.7.2.7278 79_[id number] [facility] 2023-04-26 14:42:04 3341-31-15N39:42:04 Ivonne from [facility] called stating they need the forms sent back so they can start the services for the pt. Ivonne stated that the forms were faxed on April 13 and nothing has been sent backPlease advise 46696-3Dkycmzyvy encounter OlrxPD5279-73-95R35:44:38Telephone encounter NoteTXT1.2.840.349243.1.13.104.2.7 .2.409249|5499974573WLIqyaimjrl for patient ooqr258110264Yafkfb G [address]TXTX[address] 95BLWWBRPGAMISABPPTFEWET2096-84-74 T14:44:381.2.840.513566.1.72.3.15| 1.2.840.954066.1.13.104.2.7.2.7278 79_[id number] Joe Pham [facility] 2023-04-26 14:36:39 8742-04-83W62:36:39 Patients daughter Cami is calling in to check status of forms.Please advise 29701-7Zwdofpaxq encounter RyetQQ5846-08-40I35:37:18Telephone encounter NoteTXT1.2.840.840001.1.13.104.2.7 .2.871322|6881101497TTZjulhogvg for patient ciya578029044Quzjfhhnuuh S [address] 23EGHZYMMAHNSNOEWSQCWJUL6702-01-85 T14:37:181.2.840.190811.1.72.3.15| 1.2.840.682778.1.13.104.2.7.2.7278 79_[id number] Vidal Galan [facility] 2023-04-25 10:39:43 8733-50-87C39:39:43 Ivonne from [facility] called following up on Forms that provider needed to sign in able for them to starts services. [phone] fx [phone]. Please advise 98600-7Hlvmutmur encounter QcevZG9446-63-81K17:41:47Telephone encounter NoteTXT1.2.840.354670.1.13.104.2.7 .2.816773|9352225202TEYowxxaaku for patient nfyx696441436Lusi A [address] 28SBEOXKBDDDEPCAGCTCAPAF3438-49-85 T10:41:471.2.840.207955.1.72.3.15| 1.2.840.903140.1.13.104.2.7.2.7278 79_[id number] Tiffanie Teixeira [facility] 2023-04-20 14:30:00 9973-67-97U98:30:00 Addended by: SUSAN ALVAREZ on: 05/05/2023 07:54 AM Modules accepted: Orders 24292-4Cpoxdbub OelvvtmcQH1926-89-26M41:54:28Adden dum DocumentTXT1.2.840.083583.1.13.104 .2.7.2.007072|1423080038LBFbhcmnih e for patient aovf90587-7TnjhKBDBUANXQE[address]TXTX[address] 23VNHSIEDXZMGWNSJHAFNDLO4183-96-47 T07:54:281.2.840.937402.1.72.3.15| 1.2.840.903534.1.13.104.2.7.2.7278 79_[id number] [facility]
[2024-04-05 02:39] LABS: Absolute Basophils 0.1 K/uL (0-0.5); Absolute Eosinophils 0.3 K/uL (0-0.5); Absolute Lymphocytes (CBC) 0.9 K/uL (0.7-4.9); Absolute Monocytes 0.5 K/uL (0.1-1.3); Absolute Neutrophil 3.1 K/uL (1.8-8.0); Basophils % 1.2 % (0-1.3); Eosinophils % 6.6 % (0-4.4); Hemoglobin 9.6 g/dL (12.0-15.0); Lymphocytes % 19.4 % (15.3-44.8); MCH 30.3 pg (27.0-35.0); MCHC 34.4 g/dL (32.0-36.0); MCV 88.1 fL (80-100); MPV 6.7 fL (7.6-11.3); Neutrophils % 62.8 % (41.7-73.7); Nucleated Red Blood Cells % 0.1 % (0-0); Platelets 308 thou/uL (152-406); RBC Red Blood Cell Count 3.18 M/uL (3.86-4.86); Red Cell Distribution Width 13.4 % (12.1-15.2)
[2024-04-05 02:44] LABS: PT Prothrombin Time 11.4 SECONDS (9.4-12.5); Protime INR 1.04
[2024-04-05 03:11] LABS: Albumin 2.8 g/dL (3.4-5.0); Alkaline Phosphatase 119 U/L (45-117); Anion Gap 6.9 mEq/L (5.0-15.0); BUN Blood Urea Nitrogen 18 mg/dL (7-18); Bicarbonate 27 mEq/L (21-32); Bilirubin Total 0.2 mg/dL (0.2-1.0); Globulin 2.9 g/dL (2.3-3.5); Glomerular Filtration Rate 42 ml/min (=/>90); Glucose Level 250 mg/dL (74-106); Lipase 91 U/L (13-75); Magnesium 2.4 mg/dL (1.6-2.4); Potassium 4.9 mEq/L (3.5-5.1); Protein, Total 5.7 g/dL (6.4-8.2); Sodium Level 127 mEq/L (136-145); Troponin High Sensitivity 21.6 pg/mL (<58.9)
[2024-04-05 03:51] LABS: NT PRO-BNP 1020 pg/mL (<450)
[2024-04-05 03:52] LABS: ALT/SGPT < 14 U/L (13-56); AST/SGOT < 10 U/L (15-37); Bilirubin Direct < 0.2 mg/dL (0-0.2)
--- NOTE | 2024-04-05 05:37 | ER ---
Nurse's Notes [facility] Name: Yancy Sweeney Age: 88 yrs Sex: Female : 1935 Arrival Date: 04/05/2024 Time: 02:02 Bed 7 Private MD: Diagnosis: Chest pain, unspecified Presentation: 04/05 02:14 Chief complaint: EMS states: Pt was woken up at approximately 0100 with chest pain. Pt kd3 has a history of an MD approximately 2 months ago. Pt took 1 nitro prior to EMS arrival with minimal relief of pain. Pt was administered 324 of aspirin in route as well as a 2nd dose of nitro. Pt now reports a 3/10 chest pain. Pt blood sugar was 260, VSS. Pt placed on 2 L nasal canula for comfort. EKG performed. Coronavirus screen: Vaccine status: Patient reports being unvaccinated. Ebola Screen: No symptoms or risks identified at this time. Initial Sepsis Screen: Does the patient meet any 2 criteria? No. Patient's initial sepsis screen is negative. Does the patient have a suspected source of infection? No. Patient's initial sepsis screen is negative. Risk Assessment: Do you want to hurt yourself or someone else? Patient reports no desire to harm self or others. Onset of symptoms was April 05, 2024. 02:14 Method Of Arrival: EMS: [facility] kd3 02:14 Acuity: NAOMIE 3 kd3 Triage Assessment: 02:17 General: Appears in no apparent distress. Behavior is calm, cooperative. Pain: kd3 Complains of pain in chest Pain currently is 3 out of 10 on a pain scale. at worst was 8 out of 10 on a pain scale. Cardiovascular: Patient's skin is warm and dry. Respiratory: Airway is patent Trachea midline Respiratory effort is even, unlabored, Respiratory pattern is regular, symmetrical. Historical: - Allergies: 02:17 Ciprofloxacin; cant take it with levoquin together; kd3 02:17 Levofloxacin; kd3 - PMHx: 02:17 Atrial fibrillation; Hypertensive disorder; Hypercholesterolemia; Myocardial kd3 infarction; diabetes mellitus; - PSHx: 02:17 Cholecystectomy; Stented artery; Total abdominal hysterectomy; kd3 - Immunization history:: Adult Immunizations up to date. - Infectious Disease History:: Denies. - Social history:: Smoking status: Patient denies any tobacco usage or history of. - Family history:: not pertinent. Screenin:18 [facility] ED Fall Risk Assessment (Adult) History of falling in the last 3 months, kd3 including since admission No falls in past 3 months (0 pts) Confusion or Disorientation No (0 pts) Intoxicated or Sedated No (0 pts) Impaired Gait No (0 pts) Mobility Assist Device Used No (0 pt) Altered Elimination No (0 pt) Score/Fall Risk Level 0 - 2 = Low Risk Oriented to surroundings. Abuse screen: Denies threats or abuse. Denies injuries from another. Nutritional screening: No deficits noted. Tuberculosis screening: No symptoms or risk factors identified. Assessment: 02:19 Pain: Pain does not radiate. Pain began suddenly. kd3 02:33 General: Provider at bedside discussing POC with family member . kd3 02:36 General: Appears in no apparent distress. Behavior is calm, cooperative, Pt provided kd3 warm blanket for comfort. . Neuro: Level of Consciousness is awake, alert, obeys commands, Oriented to person, place, time, situation. Cardiovascular: Patient's skin is warm and dry. Respiratory: Airway is patent Trachea midline Respiratory effort is even, unlabored, Respiratory pattern is regular, symmetrical. 03:46 General: Pt provided additional blankets for comfort. . kd3 03:48 Reassessment: Patient and/or family updated on plan of care and expected duration. Pain kd3 level reassessed. Patient is alert, oriented x 3, equal unlabored respirations, skin warm/dry/pink. Called lab to inquire about labs that are not resulted. technical support specialist said she would send reults.. 04:55 Reassessment: Pt called this RN into the room and requested to be discharged, Pt kd3 educated on need for repeat troponin. Pt is agreeable to lab work. Repeat green top collected and sent to lab. . Vital Signs: 02:14 BP 122 / 52; Pulse 65; Resp 14; Temp 98.2(O); Pulse Ox 99% on 2 lpm NC; Weight 55.34 kd3 kg; Height 5 ft. 5 in. ; Pain 3/10; 02:37 BP 134 / 67; Pulse 67; Resp 18; Pulse Ox 99% on R/A; kd3 03:46 BP 122 / 95; Pulse 65; Resp 16; Pulse Ox 93% on R/A; kd3 04:55 BP 153 / 53; Pulse 64; Resp 19; Pulse Ox 96% on R/A; kd3 02:14 Body Mass Index 20.30 (55.34 kg, 165.1 cm) kd3 02:14 Pain Scale: Adult kd3 ED Course: 02:05 Patient arrived in ED. kd3 02:09 Mansoor Toscano MD is Attending Physician. rt 02:17 Triage completed. kd3 02:17 Arm band placed on right wrist. EKG completed in triage. Results shown to MD. kd3 02:18 No provider procedures requiring assistance completed. Maintain EMS IV. Dressing kd3 intact. Good blood return noted. Site clean \T\ dry. Gauge \T\ site: 18 gauge left forearm . Oxygen administration via nasal cannula \T\ 2L/min. 02:19 Kristina Pichardo RN is Primary Nurse. kd3 02:19 Patient has correct armband on for positive identification. Client placed on continuous kd3 cardiac and pulse oximetry monitoring. NIBP monitoring applied. 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 02:30 XRAY Chest (1 view) In Process Unspecified. EDMS 02:33 Lipase Sent. kd3 02:33 Basic Metabolic Panel Sent. kd3 02:33 CBC with Diff Sent. kd3 02:33 LFT's Sent. kd3 02:33 Magnesium Sent. kd3 02:33 NT PRO-BNP Sent. kd3 02:33 PT-INR Sent. kd3 02:33 Troponin HS Sent. kd3 04:56 Troponin High Sensitivity Sent. kd3 05:45 Provided Education on: troponin . kd3 05:45 IV discontinued, intact, bleeding controlled, No redness/swelling at site. Pressure kd3 dressing applied. Administered Medications: No medications were administered Medication: 02:36 VIS not applicable for this client. kd3 Outcome: 05:37 Discharge ordered by . rt 05:45 Discharged to home ambulatory, with family, kd3 05:45 Condition: stable 05:45 Discharge instructions given to patient, family, Instructed on discharge instructions, follow up and referral plans. Demonstrated understanding of instructions, follow-up care, 05:49 Patient left the ED. kd3 Signatures: Dispatcher [employer] EDAL Kristina Pichardo RN RN kd3 Mansoor Toscano MD MD rt
--- NOTE | 2024-04-05 05:37 | EDPHYS ---
Physician Documentation [facility] Name: Yancy Sweeney Age: 88 yrs Sex: Female : 1935 Arrival Date: 04/05/2024 Time: 02:02 Bed 7 Private MD: ED Physician Mansoor Toscano HPI: 04/05 02:20 This 88 yrs old Female presents to ER via EMS with complaints of Chest Pain. rt 02:20 Patient with known history of atrial fibrillation, coronary artery disease presents to rt the ED with chest pain, shortness of breath, nausea that started at about 1 AM. Patient received 324 of aspirin, Zofran, nitro which resolved the symptoms. Denies other acute complaints at this time, symptoms are moderate in severity, no other aggravating or alleviating factors.. Historical: - Allergies: 02:17 Ciprofloxacin; cant take it with levoquin together; kd3 02:17 Levofloxacin; kd3 - PMHx: 02:17 Atrial fibrillation; Hypertensive disorder; Hypercholesterolemia; Myocardial kd3 infarction; diabetes mellitus; - PSHx: 02:17 Cholecystectomy; Stented artery; Total abdominal hysterectomy; kd3 - Immunization history:: Adult Immunizations up to date. - Infectious Disease History:: Denies. - Social history:: Smoking status: Patient denies any tobacco usage or history of. - Family history:: not pertinent. ROS: 02:20 Constitutional: Negative for fever, chills, and weight loss, MS/Extremity: Negative for rt injury and deformity, Skin: Negative for injury, rash, and discoloration, Neuro: Negative for headache, weakness, numbness, tingling, and seizure, 02:20 Cardiovascular: Positive for chest pain, Negative for edema, 02:20 Respiratory: Positive for shortness of breath, Negative for cough, 02:20 Abdomen/GI: Positive for nausea, Negative for abdominal pain, Exam: 02:20 Constitutional: This is a well developed, well nourished patient who is awake, alert, rt and in no acute distress. Head/Face: Normocephalic, atraumatic. Chest/axilla: Normal chest wall appearance and motion. Nontender with no deformity. No lesions are appreciated. Cardiovascular: Regular rate and rhythm with a normal S1 and S2. No gallops, murmurs, or rubs. Normal PMI, no JVD. No pulse deficits. Respiratory: Lungs have equal breath sounds bilaterally, clear to auscultation and percussion. No rales, rhonchi or wheezes noted. No increased work of breathing, no retractions or nasal flaring. Abdomen/GI: Soft, non-tender, with normal bowel sounds. No distension or tympany. No guarding or rebound. No evidence of tenderness throughout. Skin: Warm, dry with normal turgor. Normal color with no rashes, no lesions, and no evidence of cellulitis. MS/ Extremity: Pulses equal, no cyanosis. Neurovascular intact. Full, normal range of motion. Neuro: Awake and alert, GCS 15, oriented to person, place, time, and situation. Cranial nerves II-XII grossly intact. Motor strength 5/5 in all extremities. Sensory grossly intact. Cerebellar exam normal. Normal gait. 02:20 ECG was reviewed by the Attending Physician. Vital Signs: 02:14 BP 122 / 52; Pulse 65; Resp 14; Temp 98.2(O); Pulse Ox 99% on 2 lpm NC; Weight 55.34 kd3 kg; Height 5 ft. 5 in. ; Pain 3/10; 02:37 BP 134 / 67; Pulse 67; Resp 18; Pulse Ox 99% on R/A; kd3 03:46 BP 122 / 95; Pulse 65; Resp 16; Pulse Ox 93% on R/A; kd3 04:55 BP 153 / 53; Pulse 64; Resp 19; Pulse Ox 96% on R/A; kd3 02:14 Body Mass Index 20.30 (55.34 kg, 165.1 cm) kd3 02:14 Pain Scale: Adult kd3 MDM: 02:10 Patient medically screened. rt 06:53 Differential diagnosis: abnormal EKG, coronary artery disease congestive heart failure rt pneumonia, pneumothorax. The patient was given aspirin in the Emergency Department. Data reviewed: vital signs, nurses notes, lab test result(s), EKG, radiologic studies. Consideration of Admission/Observation Escalation of care including admission/observation considered. I recommended admission to the patient for further care. Patient declined admission. Repeat troponin was unremarkable. Patient understands that this may be a cardiac chest pain requiring further workup. She has decision-making capacity and understands risks of leaving. Return precautions were discussed, patient to return if she changes her mind or has worsening symptoms.. I considered the following discharge prescriptions or medication management in the emergency department Medications were administered in the Emergency Department. See MAR. Independent interpretation of the following test(s) in the Emergency Department X-Ray: My interpretation is No pneumonia seen on interpretation of x-ray images. Test considered but Not performed: CT: No suspicion for pulmonary embolism, CT angiogram not indicated. Care significantly affected by the following chronic conditions: CAD, A-fib. Response to treatment: the patient's symptoms have markedly improved after treatment. 04/05 02:10 Order name: Basic Metabolic Panel; Complete Time: 03:53 rt 04/05 02:10 Order name: CBC with Diff; Complete Time: 03:53 rt 04/05 02:10 Order name: LFT's; Complete Time: 03:53 rt 04/05 02:10 Order name: Magnesium; Complete Time: 03:53 rt 04/05 02:10 Order name: NT PRO-BNP; Complete Time: 03:53 rt 04/05 02:10 Order name: PT-INR; Complete Time: 03:53 rt 04/05 02:10 Order name: Troponin HS; Complete Time: 03:53 rt 04/05 02:11 Order name: Lipase; Complete Time: 03:53 rt 04/05 04:04 Order name: Troponin High Sensitivity; Complete Time: 05:36 rt 04/05 02:10 Order name: XRAY Chest (1 view) rt 04/05 02:10 Order name: EKG; Complete Time: 02:11 rt 04/05 02:10 Order name: Cardiac monitoring; Complete Time: 02:19 rt 04/05 02:10 Order name: EKG - Nurse/Tech; Complete Time: 02:19 rt 04/05 02:10 Order name: IV Saline Lock; Complete Time: 02:19 rt 04/05 02:10 Order name: Labs collected and sent; Complete Time: 02:33 rt 04/05 02:10 Order name: O2 Per Protocol; Complete Time: 02:19 rt 04/05 02:10 Order name: O2 Sat Monitoring; Complete Time: 02:19 rt EC:20 Rate is 65 beats/min. Rhythm is regular, Normal Sinus Rhythm with No ectopy, Left rt bundle branch block. Left axis deviation noted. CO interval is normal. QRS interval is normal. QT interval is normal. No Q waves. Administered Medications: No medications were administered Disposition Summary: 04/05/24 05:37 Discharge Ordered Notes: Location: Home rt Problem: new rt Symptoms: have improved rt Condition: Stable rt Diagnosis - Chest pain, unspecified rt Followup: rt - With: Private Physician - When: 2 - 3 days - Reason: Discharge Instructions: - Discharge Summary Sheet rt - Nonspecific Chest Pain, Adult rt Forms: - Medication Reconciliation Form rt - Antibiotic Education rt - Prescription Opioid Use rt - Patient Portal Instructions rt - Leadership Thank You Letter rt Signatures: Dispatcher [employer] Kristina Menjivar RN RN kd3 Mansoor Toscano MD MD rt Corrections: (The following items were deleted from the chart) 04:04 04:04 Troponin High Sensitivity+[id number].[email or web address].BRZ ordered. EDMI EDMS
[2024-04-05 06:12] VITALS: BP 153/53; TEMP 98.2; O2SAT 96
--- NOTE | 2024-04-05 16:57 | RAD REPORT ---
EXAM DESCRIPTION: RAD - Chest Single View - 04/05/2024 2:28 am CLINICAL HISTORY: Chest pain. TECHNIQUE: AP chest. COMPARISON: None available for comparison. FINDINGS: CHEST: Heart: The cardiomediastinal silhouette is within normal limits. Lungs: No focal consolidation. Mild interstitial prominence, likely chronic Mediastinum: Unremarkable Pleura: No appreciable effusion. No pneumothorax. Bones: Intact IMPRESSION: Mild interstitial prominence, likely chronic. No radiographic evidence of acute cardiopu lmonary disease. Electronically signed by: Westley Lopez MD 04/05/2024 03:02 AM CDT RP Due to temporary technical issues with the PACS/Fluency reporting system, reports are being signed by the in house radiologists without review as a courtesy to insure prompt reporting. The interpreting radiologist is fully responsible for the content of the report.
--- NOTE | 2024-04-06 11:14 | EKG ---
Test Date: 2024-04-05 Test Time: 02:09:11 Resident Associate: JUANITO MEASUREMENT RESULTS: Intervals: Rate: 65 DE: 190 QRSD: 140 QT: 424 QTc: 440 [place]: P: 107 DE: 190 QRS: -34 T: 109 INTERPRETIVE STATEMENTS: Normal sinus rhythm Left axis deviation Left bundle branch block Abnormal ECG Compared to ECG 03/16/2024 17:09:40 No significant changes Electronically Signed On 04-06-24 11:12:04 CDT by Jani Marrero
== END 2024-04-05 05:49 | disposition home or self-care (01) ==
LOC: ER 02:02
DX: R07.9 Chest pain, unspecified (principal); I10 Essential (primary) hypertension; I48.91 Unspecified atrial fibrillation
CPT/HCPCS: 36415; 71045; 80048; 80076; 83690; 83735; 83880; 84484; 85025; 85610; 93005; 99285